=== PATIENT | female | born 1990 | race Caucasian/White ===

== ENCOUNTER 2020-01-04 22:00 | Inpatient (IN) | payer MEDICAID ==
[~2020-01-04] VITALS: Ht 152.4 cm; Wt 80.4 kg
[~2020-01-04 22:00] MED LIST: CPR500T PO; METR500T PO
--- NOTE | 2020-01-04 22:10 | NUR ---
DAVID WALTER presented to unit via ambulatory from ED, with c/o LABOR. Pt states has been nauseated and "not feeling good" all day with some chills that come and go. pt denies fever, denies respiratory symptoms, denies covid exposure. temp 36.9 with temporal thermometer. Pt has paper hospital mask on. DAVID WALTER weighed, gowned, voided, and to bed. EFHM and TOCO applied, VS taken. DAVID WALTER oriented to bed controls, call light, TV, heat, and A/C controls. Pt states has had ctx x 3 hours, and feels like labor. hx g5, p4 per pt report, all vaginal.
[2020-01-04 22:15] VITALS: BP 109/54
--- NOTE | 2020-01-04 22:18 | NUR ---
Pt in bed. sve done per this rn. 3-4 cm, 80%, bulging bag. presenting part not felt.
[2020-01-04] MEDS ORDERED: BETAMETHASONE ACE/NA PHOS 6 MG/ML (CELESTONE SOLUSPAN) ONE (22:19)
[2020-01-04] MEDS ORDERED: TERBUTALINE INJ 1 MG/ML (BRETHINE) AMP ONE (22:20)
--- NOTE | 2020-01-04 22:22 | NUR ---
called dr josue, oc with report. dr josue to call dr novak.
--- NOTE | 2020-01-04 22:25 | NUR ---
Dr novak called. report given of pt. new orders received. pt moved to room 319 via ambulatory accompanied by karyna so rn.
[2020-01-04 22:30] VITALS: BP 109/54
[2020-01-04] MEDS ORDERED: AMPICILLIN FOR IV USE 2,000 MG in WATER (STERILE) FOR INJECTION 14.8 ML IV SCH (22:36)
[2020-01-04] MEDS ORDERED: AMPICILLIN FOR IV USE 2,000 MG VIAL ONE (22:38)
[2020-01-04] MEDS ORDERED: WATER (STERILE) FOR INJECTION 20 ML ONE (22:38)
--- NOTE | 2020-01-04 22:38 | NUR ---
pt skin feels warm to touch when doing turb and beta shots. temp retaken. 38.2 temporal. pt denies covid exposure, travel, or respiratory symptoms. states has been having temperature swings, chills, nausea, and weakness today. dr boo and covid pui isolation ordered.
[2020-01-04 22:45] VITALS: BP 122/62
[2020-01-04] MEDS ORDERED: BETAMETHASONE ACE/NA PHOS 6 MG/ML (CELESTONE SOLUSPAN) IM ONE (22:45)
[2020-01-04] MEDS ORDERED: MINERAL OIL CONCENTRATE 99.9% 15 ML UDC TOP PRN (22:45)
[2020-01-04] MEDS ORDERED: TERBUTALINE INJ 1 MG/ML (BRETHINE) AMP SC ONE (22:45)
[2020-01-04] MEDS: LACTATED RINGERS 1,000 ML IV SCH (23:09)
[2020-01-04 23:12] LABS: BILIRUBIN,URINE NEGATIVE (NEGATIVE); CLARITY,URINE CLOUDY; COLOR,URINE YELLOW; GLUCOSE, URINE (UA) NEGATIVE (NEGATIVE); KETONES,URINE 2+ (NEGATIVE); LEUKOCYTE ESTERASE ,URINE 3+ (NEGATIVE); NITRITE,URINE NEGATIVE (NEGATIVE); PH,URINE 7.5 (5-9); PROTEIN,URINE TRACE (NEGATIVE)
[2020-01-04 23:12] LABS: BASOPHILS % (AUTO) 0 % (0-10); EOSINOPHILS # (AUTO) 0.1 10^3/uL (0.0-0.3); EOSINOPHILS % (AUTO) 1 % (0-10); HEMATOCRIT 34 % (35-52); HEMOGLOBIN 11.8 G/DL (11.5-16.0); LYMPHOCYTES # (AUTO) 1.7 X 10^3 (1.0-4.0); LYMPHOCYTES % (AUTO) 8 % (12-44); MEAN CORPUSCULAR HEMOGLOBIN 33 PG (25-34); MEAN CORPUSCULAR HGB CONC 35 G/DL (32-36); MEAN CORPUSCULAR VOLUME 94 FL (80-99); MEAN PLATELET VOLUME 9.9 FL (7.4-10.4); MONOCYTES # (AUTO) 1.2 X 10^3 (0.0-1.0); MONOCYTES % (AUTO) 6 % (0-12); NEUTROPHILS # (AUTO) 17.6 X 10^3 (1.8-7.8); NEUTROPHILS % (AUTO) 85 % (42-75); PLATELET COUNT 162 10^3/uL (130-400); RED CELL DISTRIBUTION WIDTH 12.6 % (10.0-14.5); WHITE BLOOD COUNT 20.6 10^3/uL (4.3-11.0)
[2020-01-04 23:18] LABS: RBC,URINE 50-100 /HPF; WBC,URINE 50-100 /HPF
[2020-01-04 23:19] LABS: BACTERIA,URINE FEW /HPF
[2020-01-04] MEDS ORDERED: fentaNYL 2 mcg/ml BUPIVA 0.125 100 ML ONE (23:24)
--- NOTE | 2020-01-04 23:27 | NUR ---
Ramirez arrived for this rn. laura case in room for epidural placement. 7590 covid testing swab done per manpreet roberts crna. Addendum: 01/05/20 at 0409 by RON WOLF RN isolation cart outside room. this rn donned goagatan, hat, n95, and face shield.
--- OUTSIDE RECORDS SUMMARY | 2020-01-04 23:40 | XMS REPORT | Clinical Summary ---
Author Author Admin, Giuliana Flores Organization [facility] Address Unknown Phone Unavailable Allergies, Adverse Reactions, Alerts Allergy Name Reaction Description Start Date Severity Status Pr ovider No Known Allergies Estela Clifton LPN Conditions or Problems Problem Name Problem Code Onset Date Status Entry Date Provider Comment Standard Description Annotate Supervision of other normal V22.1 Resolved Cintia Pagan APRN Supervision of other normal Supervision of other normal V22.1 Inactive Dionne Stewart MD Supervision of other normal Supervision high risk , second trimester V23.9 2014 Inactive Dionne Stewart MD Supervision of unspecified high -risk Supervision high risk , third trimester V23.9 03/15 Resolved Dionne Stewart MD Supervision of unspecified high -risk care, delayed V23.7 Resolved Cintia flores APRN Supervision of high-risk : insufficient care Drug abuse, hx of V15.89 Active Dionne Stewart MD Other specified personal history presenting hazards to health Tobacco abuse, gestational 305.1 Inactive 4 Dionne Stewart MD Tobacco use disorder Tobacco abuse 305.1 Active Dionne Stewart MD Tobacco use disorder NEED FOR PROPHYLACTIC VACCINATION WITH YPAVCJL-[id number]-A UBELLA (MMR) VACCINE V06.4 Resolved Cintia Pagan APRN Need for prophylactic vaccination with hlsuzis-dzblz-inieflm [MMR] vaccine Contraceptive management V25.9 Resolved Taiwo Stewart MD Encounter for unspecified contraceptive management follow-up, routine V24.2 Resolved 12/31 Dionne Stewart MD Routine follow-up Vaginal discharge 623.5 Resolved Dionne Anders Leukorrhea, not specified as infective Vaginal discharge 623.5 Active Dionne Stewart MD Leukorrhea, not specified as infective Genital herpes 054.10 Active Dionne Stewart MD Genital herpes, unspecified 9 weeks gestation of V28.9 Inactive 01/05 Xiao Brasher Encounter for unspecified scre ening of mother 16 weeks gestation of V28.9 Inactive 2017 Dionne Stewart MD Encounter for unspecified scre ening of mother 18 weeks gestation of V28.9 Inactive 2017 Dionne Stewart MD Encounter for unspecified scre ening of mother 21 weeks gestation of V28.9 Inactive 2017 Pamela Dailey LRT Encounter for unspecified scre ening of mother 25 weeks gestation of V28.9 Inactive 2017 Dionne Stewart MD Encounter for unspecified scre ening of mother 27 weeks gestation of V28.9 Inactive 2017 Dionne Stewart MD Encounter for unspecified scre ening of mother 29 weeks gestation of V28.9 Inactive 2017 Nayeli Duke SOFTWARE INTEGRATION DEVELOPER Encounter for unspecified scre ening of mother Abnormal biochemical finding on screening 796.5 20 09/03/10 Resolved Dionne Stewart MD Abnormal finding on s creening Sinusitis, acute frontal 461.1 Resolved Taiwo Stewart MD Acute frontal sinusitis GDM, diet controlled 648.80 Resolved Dionne lima MD Abnormal glucose tolerance complicating , childbirth, or the puerperium, unspecified as to episode of care or not applicable 30 weeks gestation of V28.9 Inactive 2017 Nayeli [place] SOFTWARE INTEGRATION DEVELOPER Encounter for unspecified scre ening of mother 31 weeks gestation of V28.9 Inactive 2017 Dionne Stewart MD Encounter for unspecified scre ening of mother 33 weeks gestation of V28.9 Inactive 2017 Dionne Stewart MD Encounter for unspecified scre ening of mother 35 weeks gestation of V28.9 Inactive 2017 Dionne Stewart MD Encounter for unspecified scre ening of mother 36 weeks gestation of V28.9 Inactive 2017 Dionne Stewart MD Encounter for unspecified scre ening of mother Gestation period greater than or equal to 37 weeks 765.29 201 04/01/09 Resolved Dionne Stewart MD 37 or more completed weeks of g estation Std exposure V01.6 Active Dionne Stewart MD Contact with or exposure to venereal diseases BMI 25-25.9 Active Dionne Stewart MD Body Mass Index 25.0-25.9, adult Overweight (BMI 25-29.9) Active Dionne lima MD Overweight Supervision high risk , third trimester ICD-V23.9 Inactive Dionne Stewart MD care, delayed ICD-V23.7 Inactive Kristin Pagan SOFTWARE INTEGRATION DEVELOPER NEED FOR PROPHYLACTIC VACCINATION WITH QITRIWZ-RXMOG-I UBELLA (MMR) VACCINE ICD-V06.4 Inactive Cintia Pagan SOFTWARE INTEGRATION DEVELOPER Contraceptive management ICD-V25.9 Inactive Dionne Stewart MD follow-up, routine ICD-V24.2 Inacti ve Dionne Stewart MD 29 weeks gestation of ICD-V28.9 Inac tiflorentino Duke SOFTWARE INTEGRATION DEVELOPER Abnormal biochemical finding on screening ICD-796.5 Inactive Dionne Stewart MD Sinusitis, acute frontal ICD-461.1 Inactive Dionne Stewart MD GDM, diet controlled ICD-648.80 Inactive Dionne Stewart MD Gestation period greater than or equal to 37 weeks ICD-765.29 Inactive Dionne Stewart MD Medication List Medication Instructions Start Date Stop Date Generic Name NDC Status Provider Patient Instruction FLAGYL 500 MG ORAL TABLET 1 tablet by mouth bid METRONIDAZOLE 07846743535 Active Estela Clifton LPN Active CONCEPT DHA 53.5-38-1 MG ORAL CAPSULE one tab PO daily [id number]-[id number]-[id number]-FA-OMEGA 3 88387022941 No Longer Active Dionne Stewart MD Active LORATADINE 10 MG ORAL TABLET 1 tablet by mouth daily 2 LORATADINE 43105961795 No Longer Active Dionne Stewart MD Active FERROUS SULFATE 325 (65 FE) MG ORAL TABLET 1 tablet daily 5 FERROUS SULFATE 31054285052 No Longer Active Dionne Stewart MD Acti ve LANCETS Test blood sugars as directed for gestational DM O24.420 LANCETS 75576341688 No Longer Active Dionne Stewart MD A ctive TRUE METRIX GO GLUCOSE METER W/DEVICE KIT Check blood sugars as directed BLOOD GLUCOSE MONITORING SUPPL 83744874477 N o Longer Active Dionne Stewart MD Active TRUE METRIX BLOOD GLUCOSE TEST IN VITRO STRIP Check bl ood sugars four times a day as directed for gestational DM; O24.420 GLUC OSE BLOOD 89960928564 No Longer Active Dionne Stewart MD Active PROMETHAZINE HCL 12.5 MG ORAL TABLET 1 tablet by mouth every 4 hours as needed for nausea/vomiting PROMETHAZINE HCL 63083436106 No L onger Active Dionne Stewart MD Active DIFLUCAN 150 MG ORAL TABLET 1 tablet by mouth daily 10/07/30 FLUCONAZOLE 41133268735 No Longer Active Megan Wise Active ACYCLOVIR 400 MG ORAL TABLET One tab PO BID until delivery 06/23 ACYCLOVIR 75268233821 No Longer Active Dionne Stewart MD A ctive SKLICE 0.5 % EXTERNAL LOTION Apply 4oz to dry hair and rinse of after 10 minutes IVERMECTIN 57624465817 No Longer Active Megan Northclarence lowe Active AUGMENTIN 875-125 MG ORAL TABLET 1 po BID x 10 days 09/06/11 AMOXICILLIN-POT CLAVULANATE 25263189146 No Longer Active Rosalina Sell SOFTWARE INTEGRATION DEVELOPER Active TYLENOL PM EXTRA STRENGTH 500-25 MG ORAL TABLET PRN 12/31 DIPHENHYDRAMINE-APAP (SLEEP) 80536016589 No Longer Active Dionne Stewart MD Active FLAGYL 500 MG ORAL TABLET 1 tablet PO BID for 7 days 2 METRONIDAZOLE 02339422514 No Longer Active Dionne Stewart MD Active EQL FORMULA 28-0.8 MG ORAL TABLET 1 tablet daily 1 VIT-FE FUMARATE-FA 03574736927 No Longer Active Dionne Stewart MD A ctive CONCEPT DHA 53.5-38-1 MG ORAL CAPSULE one tab PO daily [id number]-HVTQP-WBZB-FA-OMEGA 3 07493817618 No Longer Active Dionne Stewart MD Active CYCLOBENZAPRINE HCL 10 MG ORAL TABLET 1 tablet by mout h three times daily as needed for muscle spasm/pain CYCLOBENZAPRINE HCL 70986687389 No Longer Active Dionne Stewart MD Active TRI-SPRINTEC 0.18/0.215/0.25 MG-35 MCG ORAL TABLET 1 po qd a s directed NORGESTIM-ETH ESTRAD TRIPHASIC 44301407146 N o Longer Active Dionne Stewart MD Active FLAGYL 250 MG ORAL TABLET One tablet three times a day METRONIDAZOLE 60089590009 No Longer Active Cintia Pagan APRN Active [facility] 28-0.8 MG ORAL TABLET 04/10 VIT-FE FUMARATE-FA 20292264871 No Longer Active Dionne Stewart MD Active [facility] 28-0.8 MG ORAL TABLET 04/10 [facility] 28-0.8 MG ORAL TABLET VIT-FE FUMARATE-FA Inactive TRI-SPRINTEC 0.18/0.215/0.25 MG-35 MCG ORAL TABLET 1 po qd a s directed TRI-SPRINTEC 0.18/0.215/0.25 MG-35 MCG ORAL TABL ET 790429 NORGESTIM-ETH ESTRAD TRIPHASIC Inactive CYCLOBENZAPRINE HCL 10 MG ORAL TABLET 1 tablet by mout h three times daily as needed for muscle spasm/pain CYCLOBENZAP RINE HCL 10 MG ORAL TABLET 873662 CYCLOBENZAPRINE HCL Inactive CONCEPT DHA 53.5-38-1 MG ORAL CAPSULE one tab PO daily CONCEPT DHA 53.5-38-1 MG ORAL CAPSULE DNUDRY-QBWDZ-HLKB-FA-O BILLIE 3 Inactive FLAGYL 500 MG ORAL TABLET 1 tablet PO BID for 7 days 2 FLAGYL 500 MG ORAL TABLET 940277 METRONIDAZOLE Inactive TYLENOL PM EXTRA STRENGTH 500-25 MG ORAL TABLET PRN 12/31 TYLENOL PM EXTRA STRENGTH 500-25 MG ORAL TABLET 3939947 DIPHEN HYDRAMINE-APAP (SLEEP) Inactive SKLICE 0.5 % EXTERNAL LOTION Apply 4oz to dry hair and rinse of after 10 minutes SKLICE 0.5 % EXTERNAL LOTION IVERMEC TIN Inactive DIFLUCAN 150 MG ORAL TABLET 1 tablet by mouth daily 20 10/07/30 DIFLUCAN 150 MG ORAL TABLET 564572 FLUCONAZOLE Inactive PROMETHAZINE HCL 12.5 MG ORAL TABLET 1 tablet by mouth every 4 hours as needed for nausea/vomiting PROMETHAZINE HCL 12.5 MG ORA L TABLET 391620 PROMETHAZINE HCL Inactive TRUE METRIX BLOOD GLUCOSE TEST IN VITRO STRIP Check bl ood sugars four times a day as directed for gestational DM; O24.420 TRUE METRIX BLOOD GLUCOSE TEST IN VITRO STRIP GLUCOSE BLOOD Inacti ve TRUE METRIX GO GLUCOSE METER W/DEVICE KIT Check blood sugars as directed TRUE METRIX GO GLUCOSE METER W/DEVICE KIT BLOOD GLUCOSE MONITORING SUPPL Inactive LANCETS Test blood sugars as directed for gestational DM O24.420 LANCETS 25006499245 LANCETS Inactive FERROUS SULFATE 325 (65 FE) MG ORAL TABLET 1 tablet daily 5 FERROUS SULFATE 325 (65 FE) MG ORAL TABLET 492837 FERROUS SULFATE Inactive LORATADINE 10 MG ORAL TABLET 1 tablet by mouth daily 2 LORATADINE 10 MG ORAL TABLET 605023 LORATADINE Inactive CONCEPT DHA 53.5-38-1 MG ORAL CAPSULE one tab PO daily CONCEPT DHA 53.5-38-1 MG ORAL CAPSULE HQQUTM-XIXZT-IOVM-FA-O BILLIE 3 Inactive FLAGYL 250 MG ORAL TABLET One tablet three times a day FLAGYL 250 MG ORAL TABLET 002260 METRONIDAZOLE Inactive AUGMENTIN 875-125 MG ORAL TABLET 1 po BID x 10 days 09/06/11 AUGMENTIN 875-125 MG ORAL TABLET 619822 AMOXICILLIN-POT CLAVULANATE Inactive ACYCLOVIR 400 MG ORAL TABLET One tab PO BID until delivery 06/23 ACYCLOVIR 400 MG ORAL TABLET 193252 ACYCLOVIR [place] ctive Immunizations Vaccine Administration Date Value Standard Koko cription hepatitis B vaccine series yes hepat itis B vaccine, unspecified formulation hepatitis B vaccine series no hepat itis B vaccine, unspecified formulation Vital Signs Date Name Value Unit Range Description blood pressure, diastolic 67 mm[Hg] BP miramontes blood pressure, systolic 110 mm[Hg] BP sys height E&M 60 [in_us] Bdy height pulse rate E&M 64 /min Heart rate temperature E&M 97.3 [degF] Body temp erature weight E&M 128.40 [lb_av] Weight Measure d blood pressure, diastolic 69 mm[Hg] BP miramontes blood pressure, systolic 113 mm[Hg] BP sys pulse rate E&M 96 /min Heart rate temperature E&M 97.4 [degF] Body temp erature weight E&M 160.8 [lb_av] Weight Measure d blood pressure, diastolic 68 mm[Hg] BP miramontes blood pressure, systolic 118 mm[Hg] BP sys pulse rate E&M 95 /min Heart rate temperature E&M 97.9 [degF] Body temp erature weight E&M 162.6 [lb_av] Weight Measure d blood pressure, diastolic 61 mm[Hg] BP miramontes blood pressure, systolic 107 mm[Hg] BP sys pulse rate E&M 75 /min Heart rate temperature E&M 98.4 [degF] Body temp erature weight E&M 165 [lb_av] Weight Measure d blood pressure, diastolic 66 mm[Hg] BP miramontes blood pressure, systolic 113 mm[Hg] BP sys pulse rate E&M 89 /min Heart rate temperature E&M 97.7 [degF] Body temp erature weight E&M 166 [lb_av] Weight Measure d blood pressure, diastolic 64 mm[Hg] BP miramontes blood pressure, systolic 128 mm[Hg] BP sys pulse rate E&M 102 /min Heart rate temperature E&M 98.2 [degF] Body temp erature weight E&M 167 [lb_av] Weight Measure d blood pressure, diastolic, repeated by physician 74 BP miramontes blood pressure, diastolic 74 mm[Hg] BP miramontes blood pressure, systolic, repeated by physician 118 BP sys blood pressure, systolic 118 mm[Hg] BP sys height E&M 60 [in_us] Bdy height pulse rate E&M 88 /min Heart rate weight E&M 165 [lb_av] Weight Measure d blood pressure, diastolic 57 mm[Hg] BP miramontes blood pressure, systolic 109 mm[Hg] BP sys pulse rate E&M 89 /min Heart rate temperature E&M 98.2 [degF] Body temp erature weight E&M 162 [lb_av] Weight Measure d blood pressure, diastolic 64 mm[Hg] BP miramontes blood pressure, systolic 110 mm[Hg] BP sys height E&M 60 [in_us] Bdy height pulse rate E&M 98 /min Heart rate temperature E&M 98.0 [degF] Body temp erature weight E&M 164.38 [lb_av] Weight Measure d blood pressure, diastolic 59 mm[Hg] BP miramontes blood pressure, systolic 120 mm[Hg] BP sys pulse rate E&M 64 /min Heart rate temperature E&M 97.6 [degF] Body temp erature weight E&M 162.4 [lb_av] Weight Measure d blood pressure, diastolic 67 mm[Hg] BP miramontes blood pressure, systolic 123 mm[Hg] BP sys pulse rate E&M 94 /min Heart rate temperature E&M 98.3 [degF] Body temp erature weight E&M 161 [lb_av] Weight Measure d blood pressure, diastolic 50 mm[Hg] BP miramontes blood pressure, systolic 103 mm[Hg] BP sys pulse rate E&M 70 /min Heart rate temperature E&M 98.8 [degF] Body temp erature weight E&M 156 [lb_av] Weight Measure d blood pressure, diastolic 63 mm[Hg] BP miramontes blood pressure, systolic 124 mm[Hg] BP sys pulse rate E&M 89 /min Heart rate temperature E&M 98.6 [degF] Body temp erature weight E&M 146.4 [lb_av] Weight Measure d blood pressure, diastolic 55 mm[Hg] BP miramontes blood pressure, systolic 103 mm[Hg] BP sys pulse rate E&M 972 /min Heart rate temperature E&M 97.2 [degF] Body temp erature weight E&M 144 [lb_av] Weight Measure d blood pressure, diastolic 66 mm[Hg] BP miramontes blood pressure, systolic 131 mm[Hg] BP sys pulse rate E&M 87 /min Heart rate temperature E&M 97.8 [degF] Body temp erature weight E&M 140.6 [lb_av] Weight Measure d blood pressure, diastolic 52 mm[Hg] BP miramontes blood pressure, systolic 116 mm[Hg] BP sys height E&M 60 [in_us] Bdy height pulse rate E&M 80 /min Heart rate temperature E&M 98.3 [degF] Body temp erature weight E&M 136.60 [lb_av] Weight Measure d Diagnostic Results Date Name Value Unit Range Description Lab Report: ABO GROUP & RH TYPE, ANTIBOD Y SCREEN, RBCW/REFL I, CBC (INCL ... - Blood bank Rh antigen RH(D) POSITIVE antibody screen, serum NO ANTIBODIES DETECTED Lab Report: ABO GROUP & RH TYPE, ANTIBOD Y SCREEN, RBCW/REFL I, CBC (INCL ... - Chemistry hepatitis B surface antigen NON-REACTIVE NON-RE ACTIVE rapid plasma reagin antibody titer NON-REACTIVE NON-REACTIVE Lab Report: ABO GROUP & RH TYPE, ANTIBOD Y SCREEN, RBCW/REFL I, CBC (INCL ... - Hematology leukocyte count, blood 8.6 THOUSAND/UL 10*3/mm3 3.8-10.8 erythrocyte (RBC) count 3.93 MILLION/UL 10*6/mm3 3.80-5. 10 hemoglobin, blood 12.3 g/dL 11.7-15.5 hematocrit, blood 36.8 % 35.0-45.0 mean corpuscular volume, RBC 93.6 fL 80.0-10 0.0 mean corpuscular hemoglobin, RBC 31.3 pg 27. 0-33.0 mean corpuscular hemoglobin concentration, RBC 33.4 G/DL % 32.0-36.0 red blood cell distribution width 12.3 % 11 .0-15.0 platelet count 226 THOUSAND/UL 10*3/mm3 774-529 8959/05/11 mean platelet volume 10.3 fL 7.5-12.5 Blood type O Lab Report: ABO GROUP & RH TYPE, ANTIBOD Y SCREEN, RBCW/REFL I, CBC (INCL ... - Lab chlamydia DNA probe NOT DETECTED NOT DETECTED Lab Report: ABO GROUP & RH TYPE, ANTIBOD Y SCREEN, RBCW/REFL I, CBC (INCL ... - Microbiology Neisseria gonorrhoeae DNA probe NOT DETECTED NO T DETECTED Lab Report: ABO GROUP & RH TYPE, ANTIBOD Y SCREEN, RBCW/REFL I, CBC (INCL ... - Serology rubella antibody, serum, IgG 5.48 Lab Report: ANTIBODY SCREEN, RBCW/REFL I , Drug Abuse Pnl 10-33/11236 - Blood bank antibody screen, serum NO ANTIBODIES DETECTED Lab Report: CBC, [id number] Gluc cari-1spec - Hematology leukocyte count, blood 10.2 10^3/MM^3 10*3/mm3 4.6-10.2 erythrocyte (RBC) count 3.30 10^6/MM^3 10*6/mm3 3.80-5.8 0 hemoglobin, blood 10.5 g/dL 12.0-16.0 hematocrit, blood 31.1 % 37.0-47.0 mean corpuscular volume, RBC 94 fL 80-97 mean corpuscular hemoglobin, RBC 31.9 pg 27. 0-31.2 mean corpuscular hemoglobin concentration, RBC 33.9 G/DL % 31.8-35.4 red blood cell distribution width 11.1 % 13 .0-18.0 platelet count 201 10^3/MM^3 10*3/mm3 142-424 Lab Report: Chlamydia/GC APTIMA/[id number] - Lab chlamydia DNA probe NOT DETECTED NOT DETECTED Lab Report: Chlamydia/GC APTIMA/89975 - Microbiology Neisseria gonorrhoeae DNA probe NOT DETECTED NO T DETECTED Lab Report: Chlamydia/GC APTIMA/[id number], H EPATITIS B S AG W/, HIV-1/2 Agn/ ... - Chemistry hepatitis B surface antigen NON-REACTIVE NON-RE ACTIVE rapid plasma reagin antibody titer NON-REACTIVE NON-REACTIVE Lab Report: Chlamydia/GC APTIMA/21403, H EPATITIS B S AG W/, HIV-1/2 Agn/ ... - Lab chlamydia DNA probe NOT DETECTED NOT DETECTED Lab Report: Chlamydia/GC APTIMA/00471, H EPATITIS B S AG W/, HIV-1/2 Agn/ ... - Microbiology Neisseria gonorrhoeae DNA probe NOT DETECTED NO T DETECTED Lab Report: HEPATITIS B S AG W/, HIV-1/2 Agn/Mikaela/23500, RPR (DX) W/REFL ... - Chemistry hepatitis B surface antigen NON-REACTIVE NON-RE ACTIVE rapid plasma reagin antibody titer NON-REACTIVE NON-REACTIVE Lab Report: OBGTT3 - Chemistry blood glucose 92 mg/dL 65-95 Lab Report: Thyroid Stimulating Hormone (L), UADIP W/MICRO, AUTO - Chemistry TSH 0.87 m[iU]/mL 0.36-3.74 protein, total urine random Negative mg/dL Negative RBC, urine, dipstick Negative Negative Lab Report: Thyroid Stimulating Hormone (L), UADIP W/MICRO, AUTO - Urinalysis urobilinogen, urine, semiquantitative (dipstick) 0.2 E .U./dL Normal leukocyte esterase, urine, by dipstick Negative Negative nitrite, urine, semiquantitative Negative Neg ative urate crystals, amorphous, urine, semiquantitative Few None seen glucose, urine, semiquantitative Negative Neg ative ketones, urine, by test strip Negative Negati ve bilirubin, urine Negative Negative urine color Yellow Colorless;Lightyellow;St raw;Yellow appearance, urine Clear Clear specific gravity, urine 1.020 1.000-1.030 pH, urine, semiquantitative 8.5 5.0-8.5 Lab Report: UADIP W/MICRO, AUTO - Chemis try protein, total urine random Negative mg/dL Negative RBC, urine, dipstick Negative Negative Lab Report: UADIP W/MICRO, AUTO - Urinal ysis urobilinogen, urine, semiquantitative (dipstick) 0.2 E .U./dL Normal leukocyte esterase, urine, by dipstick Trace Negative nitrite, urine, semiquantitative Negative Neg ative glucose, urine, semiquantitative Negative Neg ative ketones, urine, by test strip Negative Negati ve bilirubin, urine Negative Negative urine color Yellow Colorless;Lightyellow;St raw;Yellow appearance, urine Clear Clear specific gravity, urine 1.025 1.000-1.030 pH, urine, semiquantitative 6.0 5.0-8.5 Lab Report: UADIP W/MICRO, AUTO, Wet Pre p - Chemistry protein, total urine random Negative mg/dL Negative RBC, urine, dipstick Negative Negative Lab Report: UADIP W/MICRO, AUTO, Wet Pre p - Urinalysis urobilinogen, urine, semiquantitative (dipstick) 0.2 E .U./dL Normal leukocyte esterase, urine, by dipstick Trace Negative nitrite, urine, semiquantitative Negative Neg ative glucose, urine, semiquantitative Negative Neg ative ketones, urine, by test strip Negative Negati ve bilirubin, urine Negative Negative urine color Yellow Colorless;Lightyellow;St raw;Yellow appearance, urine Clear Clear specific gravity, urine 1.015 1.000-1.030 pH, urine, semiquantitative 7.0 5.0-8.5 Lab Report: [facility] [place] - Chemistry human chorionic gonadotropin , urine, qualitative (urine test) Negative Negative Office Visit: 4 wk f/u and quad screen - Urinalysis protein, urine, semiquantitative (dipstick) N glucose, urine, semiquantitative N nitrite, urine, semiquantitative N Office Visit: follow up ob - Urinalysis protein, urine, semiquantitative (dipstick) N glucose, urine, semiquantitative N nitrite, urine, semiquantitative N Office Visit: follow up ob - Urinalysis protein, urine, semiquantitative (dipstick) N glucose, urine, semiquantitative N nitrite, urine, semiquantitative N Office Visit: follow up ob - Urinalysis protein, urine, semiquantitative (dipstick) N glucose, urine, semiquantitative N nitrite, urine, semiquantitative N protein, urine, semiquantitative (dipstick) N nitrite, urine, semiquantitative N glucose, urine, semiquantitative N protein, urine, semiquantitative (dipstick) N glucose, urine, semiquantitative N nitrite, urine, semiquantitative N protein, urine, semiquantitative (dipstick) 1+ glucose, urine, semiquantitative N nitrite, urine, semiquantitative N glucose, urine, semiquantitative 4+ protein, urine, semiquantitative (dipstick) N nitrite, urine, semiquantitative N protein, urine, semiquantitative (dipstick) Tr glucose, urine, semiquantitative N nitrite, urine, semiquantitative N Office Visit: follow up ob with DMS - Ur inalysis protein, urine, semiquantitative (dipstick) N glucose, urine, semiquantitative N nitrite, urine, semiquantitative N Office Visit: follow up ob with GBS - Ur inalysis protein, urine, semiquantitative (dipstick) N glucose, urine, semiquantitative N nitrite, urine, semiquantitative N Office Visit: Initial OB Visit - Genetic s/fertility test, date 12/10/2017 Office Visit: Initial OB Visit - Microbi ology Herpes Simplex Virus Genital yes Office Visit: Initial OB Visit - Urinaly sis protein, urine, semiquantitative (dipstick) UC glucose, urine, semiquantitative UC nitrite, urine, semiquantitative UC Office Visit: OB Visit - Urinalysis protein, urine, semiquantitative (dipstick) N glucose, urine, semiquantitative N nitrite, urine, semiquantitative N Encounters Code Encounter Date Provider Facility CPT-43283 Level 3 Est. Patient 14:03:17 CDT Dionne bey MD [facility] CPT-05710 Level 4 Est. Patient 15:39:57 CDT Nayeli herrera [facility] CPT-34315 Level 3 Est. Patient 17:26:51 CDT Rosalina berg [facility] CPT-37651 Level 3 Est. Patient 17:31:05 SAWMILL TALLY CLERK Cintia sommer [facility] Procedures Code Procedure Name Date Entry Date Standard Desc ription CPT-58809 Visit 10:15:43 SAWMILL TALLY CLERK CPT-82060 Visit 13:02:58 SAWMILL TALLY CLERK CPT-27762 Visit 12:11:18 SAWMILL TALLY CLERK CPT-73431 Visit 10:38:39 CDT CPT-16871 Visit 08:28:55 CDT CPT-35308 Addl Vx - Ix admin via ID IM or jet injects without counseling by physician 18:18:11 CDT CPT-50339 Boostrix Intramuscular Suspension 5-2.5-18.5 201 04/01/05 18:18:11 CDT CPT-93534 First Vx - Ix admin via ID I M or jet injects without counseling by physician 18:18:11 CDT CPT-15183 Flulaval Intramuscular Injectable 18:18:11 CDT CPT-19750 Fluzone Thim Free 36mo and older 11:16:54 C DT CPT-18213 Tdap 7yrs or > 11:16:53 CDT CPT-02838 Visit 11:16:53 CDT CPT-42998 Visit 11:14:16 CDT CPT-70290 Visit 10:54:00 CDT CPT-14013 Visit 16:24:31 CDT CPT-12060 Sono OB comp > 14 weeks - XRAY USE ONLY 12:01:14 CDT CPT-28508 Visit 15:58:08 CDT CPT-46225 Visit 12:16:56 CDT CPT-48558R Sono OB comp <14 weeks ([place] Only) - X RAY USE ONLY 12:09:02 CDT CPT-03855 Spec Collection and Handling Fee 10:11:50 C DT CPT-18156 Visit 10:11:49 CDT CPT-J1050 Depo Provera 150 mg (Medroxyprogesterone) 08/30 16:06:30 SAWMILL TALLY CLERK CPT-43103 Abx/Therapy Injection 16:06:30 SAWMILL TALLY CLERK CPT-J1050 Depo Provera 150 mg (Medroxyprogesterone) 08/30 15:39:17 SAWMILL TALLY CLERK CPT-87489 Visit 15:01:38 CDT CPT-09977 Sono OB comp > 14 weeks 16:05:04 CDT 03/18 CPT-14900 Spec Collection and Handling Fee 10:45:40 C DT CPT-45809 Visit 10:45:40 CDT
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
--- OUTSIDE RECORDS SUMMARY | 2020-01-04 23:40 | XMS REPORT | Clinical Summary ---
Author Author Admin, Giuliana Flores Organization [facility] Address Unknown Phone Unavailable Allergies, Adverse [...] use disorder NEED FOR PROPHYLACTIC VACCINATION WITH WDTNXWR-DKMYE-O UBELLA (MMR) VACCINE V06.4 Resolved Cintia Pagan APRN Need for prophylactic vaccination with yntkftm-hndbg-zqveudh [MMR] vaccine Contraceptive management V25.9 Resolved Taiwo [...] gestation of V28.9 Inactive 2017 Nayeli Duke [employer] Encounter for unspecified scre ening of mother [...] gestation of V28.9 Inactive 2017 Nayeli Duke [employer] Encounter for unspecified scre ening of mother [...] MD care, delayed ICD-V23.7 Inactive Kristin Pagan [employer] NEED FOR PROPHYLACTIC VACCINATION WITH MFMUUOU-CSVAT-Z UBELLA (MMR) VACCINE ICD-V06.4 Inactive Cintia Pagan [employer] Contraceptive management ICD-V25.9 Inactive Dionne Stewart MD follow-up, routine ICD-V24.2 Inacti ve Dionne Stewart MD 29 weeks gestation of ICD-V28.9 Inac tive Nayeli Duke [employer] Abnormal biochemical finding on screening ICD-796.5 Inactive [...] TABLET 1 tablet by mouth bid METRONIDAZOLE 33341920964 Active Estela Clifton LPN Active CONCEPT DHA 53.5-38-1 MG ORAL CAPSULE one tab PO daily CXOENB-GDQFH-AQHD-FA-OMEGA 3 54432209280 No Longer Active Dionne Stewart MD Active LORATADINE 10 MG ORAL TABLET 1 tablet by mouth daily 2 LORATADINE 90902179633 No Longer Active Dionne Stewart MD Active FERROUS SULFATE 325 (65 FE) MG ORAL TABLET 1 tablet daily 5 FERROUS SULFATE 77661307791 No Longer Active Dionne Stewart MD Acti ve LANCETS Test blood sugars as directed for gestational DM O24.420 LANCETS 12008269723 No Longer Active Dionne Stewart MD A ctive TRUE METRIX GO GLUCOSE METER W/DEVICE KIT Check blood sugars as directed BLOOD GLUCOSE MONITORING SUPPL 70436257365 N o Longer Active Dionne Stewart MD Active TRUE METRIX BLOOD GLUCOSE TEST IN VITRO STRIP Check bl ood sugars four times a day as directed for gestational DM; O24.420 GLUC OSE BLOOD 42043846702 No Longer Active Dionne Stewart MD Active PROMETHAZINE HCL 12.5 MG ORAL TABLET 1 tablet by mouth every 4 hours as needed for nausea/vomiting PROMETHAZINE HCL 19185760910 No L onger Active Dionne Stewart MD Active DIFLUCAN 150 MG ORAL TABLET 1 tablet by mouth daily 10/07/30 FLUCONAZOLE 82662716451 No Longer Active Megan Wise Active ACYCLOVIR 400 MG ORAL TABLET One tab PO BID until delivery 06/23 ACYCLOVIR 60862296915 No Longer Active Dionne Stewart MD A ctive SKLICE 0.5 % EXTERNAL LOTION Apply 4oz to dry hair and rinse of after 10 minutes IVERMECTIN 83891985180 No Longer Active Carrol a Active AUGMENTIN 875-125 MG ORAL TABLET 1 po BID x 10 days 09/06/11 AMOXICILLIN-POT CLAVULANATE 34654310666 No Longer Active Rosalina Sell [employer] Active TYLENOL PM EXTRA STRENGTH 500-25 MG ORAL TABLET PRN 12/31 DIPHENHYDRAMINE-APAP (SLEEP) 96959917607 No Longer Active Dionne Stewart MD Active FLAGYL 500 MG ORAL TABLET 1 tablet PO BID for 7 days 2 METRONIDAZOLE 79899697507 No Longer Active Dionne Stewart MD Active EQL FORMULA 28-0.8 MG ORAL TABLET 1 tablet daily 1 VIT-FE FUMARATE-FA 84505530120 No Longer Active Dionne Stewart MD A ctive CONCEPT DHA 53.5-38-1 MG ORAL CAPSULE one tab PO daily RARJDH-EBZCG-BFVL-FA-OMEGA 3 77738058385 No Longer Active Dionne Stewart MD Active CYCLOBENZAPRINE HCL 10 MG ORAL TABLET 1 tablet by mout h three times daily as needed for muscle spasm/pain CYCLOBENZAPRINE HCL 65321304489 No Longer Active Dionne Stewart MD Active TRI-SPRINTEC 0.18/0.215/0.25 MG-35 MCG ORAL TABLET 1 po qd a s directed NORGESTIM-ETH ESTRAD TRIPHASIC 84234490977 N o Longer Active Dionne Stewart MD Active FLAGYL 250 MG ORAL TABLET One tablet three times a day METRONIDAZOLE 25569402415 No Longer Active Cintia Pagan APRN Active [facility] 28-0.8 MG ORAL TABLET 04/10 VIT-FE FUMARATE-FA 43555457080 No Longer Active Dionne Stewart MD Active [facility] 28-0.8 MG ORAL TABLET 04/10 [facility] 28-0.8 MG ORAL TABLET VIT-FE FUMARATE-FA Inactive TRI-SPRINTEC 0.18/0.215/0.25 MG-35 MCG ORAL TABLET 1 po qd a s directed TRI-SPRINTEC 0.18/0.215/0.25 MG-35 MCG ORAL TABL ET 686112 NORGESTIM-ETH ESTRAD TRIPHASIC Inactive CYCLOBENZAPRINE HCL 10 MG ORAL TABLET 1 tablet by mout h three times daily as needed for muscle spasm/pain CYCLOBENZAP RINE HCL 10 MG ORAL TABLET 010799 CYCLOBENZAPRINE HCL Inactive CONCEPT DHA 53.5-38-1 MG ORAL CAPSULE one tab PO daily CONCEPT DHA 53.5-38-1 MG ORAL CAPSULE TIDZIZ-CDAJP-WFXX-FA-O BILLIE 3 Inactive FLAGYL 500 MG ORAL TABLET 1 tablet PO BID for 7 days 2 FLAGYL 500 MG ORAL TABLET 591696 METRONIDAZOLE Inactive TYLENOL PM EXTRA STRENGTH 500-25 MG ORAL TABLET PRN 12/31 TYLENOL PM EXTRA STRENGTH 500-25 MG ORAL TABLET 9713138 DIPHEN HYDRAMINE-APAP (SLEEP) Inactive SKLICE 0.5 % EXTERNAL LOTION Apply 4oz to dry hair and rinse of after 10 minutes SKLICE 0.5 % EXTERNAL LOTION IVERMEC TIN Inactive DIFLUCAN 150 MG ORAL TABLET 1 tablet by mouth daily 10/07/30 DIFLUCAN 150 MG ORAL TABLET 905905 FLUCONAZOLE Inactive PROMETHAZINE HCL 12.5 MG ORAL TABLET 1 tablet by mouth every 4 hours as needed for nausea/vomiting PROMETHAZINE HCL 12.5 MG ORA L TABLET 971093 PROMETHAZINE HCL Inactive TRUE METRIX BLOOD GLUCOSE [...] as directed for gestational DM O24.420 LANCETS 06975643177 LANCETS Inactive FERROUS SULFATE 325 (65 FE) MG ORAL TABLET 1 tablet daily 5 FERROUS SULFATE 325 (65 FE) MG ORAL TABLET 757728 FERROUS SULFATE Inactive LORATADINE 10 MG ORAL TABLET 1 tablet by mouth daily 2 LORATADINE 10 MG ORAL TABLET 684829 LORATADINE Inactive CONCEPT DHA 53.5-38-1 MG ORAL CAPSULE one tab PO daily CONCEPT DHA 53.5-38-1 MG ORAL CAPSULE XEHJRW-JJPXW-ELCR-FA-O BILLIE 3 Inactive FLAGYL 250 MG ORAL TABLET One tablet three times a day FLAGYL 250 MG ORAL TABLET 518032 METRONIDAZOLE Inactive AUGMENTIN 875-125 MG ORAL TABLET 1 po BID x 10 days 09/06/11 AUGMENTIN 875-125 MG ORAL TABLET 369932 AMOXICILLIN-POT CLAVULANATE Inactive ACYCLOVIR 400 MG ORAL TABLET One tab PO BID until delivery 06/23 ACYCLOVIR 400 MG ORAL TABLET 958627 ACYCLOVIR Britt ctive Immunizations Vaccine Administration Date Value Standard [...] I, CBC (INCL ... - Blood bank antibody screen, serum NO ANTIBODIES DETECTED Rh antigen RH(D) POSITIVE Lab Report: ABO GROUP & RH TYPE, ANTIBOD Y SCREEN, RBCW/REFL I, CBC (INCL ... - Chemistry hepatitis B surface antigen NON-REACTIVE NON-RE ACTIVE rapid plasma reagin antibody titer NON-REACTIVE NON-REACTIVE Lab Report: ABO GROUP & RH TYPE, ANTIBOD Y SCREEN, RBCW/REFL I, CBC (INCL ... - Hematology Blood type O erythrocyte (RBC) count 3.93 MILLION/UL 10*6/mm3 3.80-5. 10 leukocyte count, blood 8.6 THOUSAND/UL 10*3/mm3 3.8-10.8 hemoglobin, blood 12.3 g/dL 11.7-15.5 hematocrit, blood 36.8 % 35.0-45.0 mean corpuscular volume, RBC 93.6 fL 80.0-10 0.0 mean corpuscular hemoglobin, RBC 31.3 pg 27. 0-33.0 mean corpuscular hemoglobin concentration, RBC 33.4 G/DL % 32.0-36.0 red blood cell distribution width 12.3 % 11 .0-15.0 platelet count 226 THOUSAND/UL 10*3/mm3 179-383 8778/05/11 mean platelet volume 10.3 fL 7.5-12.5 Lab Report: ABO GROUP & RH TYPE, [...] SCREEN, RBCW/REFL I , Drug Abuse Pnl 10-50/59615 - Blood bank antibody screen, serum NO ANTIBODIES DETECTED Lab Report: CBC, [id number]--85sm Gluc cari-1spec - Hematology hemoglobin, blood 10.5 g/dL 12.0-16.0 hematocrit, blood 31.1 % 37.0-47.0 mean corpuscular volume, RBC 94 fL 80-97 mean corpuscular hemoglobin, RBC 31.9 pg 27. 0-31.2 leukocyte count, blood 10.2 10^3/MM^3 10*3/mm3 4.6-10.2 mean corpuscular hemoglobin concentration, RBC 33.9 G/DL % 31.8-35.4 red blood cell distribution width 11.1 % 13 .0-18.0 platelet count 201 10^3/MM^3 10*3/mm3 634-946 0077/09/21 erythrocyte (RBC) count 3.30 10^6/MM^3 10*6/mm3 3.80-5.8 0 Lab Report: Chlamydia/GC APTIMA/64640 - Lab chlamydia DNA probe NOT DETECTED NOT DETECTED Lab Report: Chlamydia/GC APTIMA/63211 - Microbiology Neisseria gonorrhoeae DNA probe NOT DETECTED NO T DETECTED Lab Report: Chlamydia/GC APTIMA/72794, H EPATITIS B S AG W/, HIV-1/2 Agn/ ... - Chemistry hepatitis B surface antigen NON-REACTIVE NON-RE ACTIVE rapid plasma reagin antibody titer NON-REACTIVE NON-REACTIVE Lab Report: Chlamydia/GC APTIMA/74661, H EPATITIS B S AG W/, HIV-1/2 Agn/ ... - Lab chlamydia DNA probe NOT DETECTED NOT DETECTED Lab Report: Chlamydia/GC APTIMA/25647, H EPATITIS B S AG W/, HIV-1/2 Agn/ ... - Microbiology Neisseria gonorrhoeae DNA probe NOT DETECTED NO T DETECTED Lab Report: HEPATITIS B S AG W/, HIV-1/2 Agn/Mikaela/40778, RPR (DX) W/REFL ... - Chemistry hepatitis [...] Report: UADIP W/MICRO, AUTO - Chemis try RBC, urine, dipstick Negative Negative protein, total urine random Negative mg/dL Negative Lab Report: UADIP W/MICRO, AUTO - Urinal ysis glucose, urine, semiquantitative Negative Neg ative ketones, urine, by test strip Negative Negati ve bilirubin, urine Negative Negative urine color Yellow Colorless;Lightyellow;St raw;Yellow appearance, urine Clear Clear specific gravity, urine 1.025 1.000-1.030 pH, urine, semiquantitative 6.0 5.0-8.5 urobilinogen, urine, semiquantitative (dipstick) 0.2 E .U./dL Normal leukocyte esterase, urine, by dipstick Trace Negative nitrite, urine, semiquantitative Negative Neg ative Lab Report: UADIP W/MICRO, AUTO, Wet Pre p - Chemistry protein, total urine random Negative mg/dL Negative RBC, urine, dipstick Negative Negative Lab Report: UADIP W/MICRO, AUTO, Wet Pre p - Urinalysis urobilinogen, urine, semiquantitative (dipstick) 0.2 E .U./dL Normal leukocyte esterase, urine, by dipstick Trace Negative nitrite, urine, semiquantitative Negative Neg ative pH, urine, semiquantitative 7.0 5.0-8.5 appearance, urine Clear Clear specific gravity, urine 1.015 1.000-1.030 urine color Yellow Colorless;Lightyellow;St raw;Yellow glucose, urine, semiquantitative Negative Neg ative ketones, urine, by test strip Negative Negati ve bilirubin, urine Negative Negative Lab Report: [facility] [place] - Chemistry human chorionic gonadotropin , urine, [...] urine, semiquantitative N glucose, urine, semiquantitative N Office Visit: follow up [...] N Encounters Code Encounter Date Provider Facility CPT-31053 Level 3 Est. Patient 14:03:17 CDT Dionne bey MD [facility] CPT-20870 Level 4 Est. Patient 15:39:57 CDT Nayeli herrera [facility] CPT-27893 Level 3 Est. Patient 17:26:51 CDT Rosalina berg [facility] CPT-15403 Level 3 Est. Patient 17:31:05 PAINT PREPPER Cintia sommer [facility] Procedures Code Procedure Name Date Entry Date Standard Desc ription CPT-56717 Visit 10:15:43 PAINT PREPPER CPT-67456 Visit 13:02:58 PAINT PREPPER CPT-88070 Visit 12:11:18 PAINT PREPPER CPT-21352 Visit 10:38:39 CDT CPT-57014 Visit 08:28:55 CDT CPT-81745 Addl Vx - Ix admin via ID IM or jet injects without counseling by physician 18:18:11 CDT CPT-64880 Boostrix Intramuscular Suspension 5-2.5-18.5 201 04/01/05 18:18:11 CDT CPT-97646 First Vx - Ix admin via ID I M or jet injects without counseling by physician 18:18:11 CDT CPT-65795 Flulaval Intramuscular Injectable 18:18:11 CDT CPT-70216 Fluzone Thim Free 36mo and older 11:16:54 C DT CPT-61687 Tdap 7yrs or > 11:16:53 CDT CPT-64563 Visit 11:16:53 CDT CPT-68376 Visit 11:14:16 CDT CPT-63250 Visit 10:54:00 CDT CPT-24823 Visit 16:24:31 CDT CPT-49359 Sono OB comp > 14 weeks - XRAY USE ONLY 12:01:14 CDT CPT-80182 Visit 15:58:08 CDT CPT-52571 Visit 12:16:56 CDT CPT-73641G Sono OB comp <14 weeks (Pat Only) - X RAY USE ONLY 12:09:02 CDT CPT-72931 Spec Collection and Handling Fee 10:11:50 C DT CPT-86111 Visit 10:11:49 CDT CPT-J1050 Depo Provera 150 mg (Medroxyprogesterone) 08/30 16:06:30 PAINT PREPPER CPT-24930 Abx/Therapy Injection 16:06:30 PAINT PREPPER CPT-J1050 Depo Provera 150 mg (Medroxyprogesterone) 08/30 15:39:17 PAINT PREPPER CPT-06566 Visit 15:01:38 CDT CPT-40137 Sono OB comp > 14 weeks 16:05:04 CDT 03/18 CPT-82420 Spec Collection and Handling Fee 10:45:40 C DT CPT-93571 Visit 10:45:40 CDT
--- OUTSIDE RECORDS SUMMARY | 2020-01-04 23:40 | XMS REPORT ---
Author Author [facility] Medic al Staff, DAVID JOINER Organization [facility] Address [address] [place], [place] [address] Phone [phone] Summary purpose CCDA Sent to [facility] Chief Complaint and Reason for Visit No authorized Reason for Visit (Admitting Diagnosis) is available for this visit . Problem list No authorized problems tracked for [...] Code Type Description Date Performed Performing Physician 10718 CPT-4 EMERGENCY DEPT VISIT 12-03-2014 PARAM RICE Functional status No functional or cognitive status observations are available for this visit. Vital signs No authorized vital signs are available for this visit. Social history No Social History or smoking status observations were recorded for this visit. ( Unknown if ever smoked.) Treatment Plan No treatment plan text is available for this visit. Hospital discharge instructions No discharge instruction text is available for this visit.
--- OUTSIDE RECORDS SUMMARY | 2020-01-04 23:40 | XMS REPORT ---
Author Author Giuliana Noguera Organization [facility] Address [address] [place] [address] Care Team Providers Care Dance Costume Designer Name Role Phone Robert Noguera Unavailable PROBLEMS Unknown Problems ALLERGIES No Information ENCOUNTERS Encounter Location Date Diagnosis [facility] [address] [place], [place] [id number] Apr, IMMUNIZATIONS No Known Immunizations SOCIAL HISTORY Never Assessed REASON FOR VISIT PLAN OF CARE VITAL SIGNS MEDICATIONS Unknown Medications RESULTS No Results PROCEDURES Procedure Date Ordered Result Body Site Echocardiography, , 2D May 18, 2018 Echocardiography, doppler, ; complete May 18, 2018 Doppler color flow velocity mapping May 18, 2018 INSTRUCTIONS MEDICATIONS ADMINISTERED No Known Medications
--- OUTSIDE RECORDS SUMMARY | 2020-01-04 23:41 | XMS REPORT | Clinical Summary ---
Author Author Admin, Giuliana Flores Organization [facility] Address Unknown Phone Unavailable Allergies, Adverse Reactions, [...] use disorder NEED FOR PROPHYLACTIC VACCINATION WITH TDBTJEZ-HWAGJ-D UBELLA (MMR) VACCINE V06.4 Resolved Cintia Pagan APRN Need for prophylactic vaccination with vopiwft-otpep-rmrsvzn [MMR] vaccine Contraceptive management V25.9 Resolved Taiwo [...] gestation of V28.9 Inactive 2017 Nayeli Duke CANDY ROLLING MACHINE OPERATOR Encounter for unspecified scre ening of mother [...] weeks gestation of V28.9 Inactive 2017 Nayeli [place] CANDY ROLLING MACHINE OPERATOR Encounter for unspecified scre ening of mother [...] MD care, delayed ICD-V23.7 Inactive Kristin Pagan CANDY ROLLING MACHINE OPERATOR NEED FOR PROPHYLACTIC VACCINATION WITH KNVQTXG-HYISG-J UBELLA (MMR) VACCINE ICD-V06.4 Inactive Cintia Pagan CANDY ROLLING MACHINE OPERATOR Contraceptive management ICD-V25.9 Inactive Dionne Stewart MD follow-up, routine ICD-V24.2 Inacti ve Dionne Stewart MD 29 weeks gestation of ICD-V28.9 Inac tiflorentino Duke CANDY ROLLING MACHINE OPERATOR Abnormal biochemical finding on screening ICD-796.5 Inactive Dionne Stewart MD Sinusitis, acute frontal ICD-461.1 Inactive Doinne Stewart MD GDM, diet controlled ICD-648.80 Inactive Dionne Stewart MD Gestation period greater than or equal to 37 weeks ICD-765.29 Inactive Dionne Stewart MD Medication List Medication Instructions Start Date Stop Date Generic Name NDC Status Provider Patient Instruction FLAGYL 500 MG ORAL TABLET 1 tablet by mouth bid METRONIDAZOLE 57440914115 Active Estela Clifton LPN Active CONCEPT DHA 53.5-38-1 MG ORAL CAPSULE one tab PO daily FUAKSK-NMPIM-MIRC-FA-OMEGA 3 30735391083 No Longer Active Dionne Stewart MD Active LORATADINE 10 MG ORAL TABLET 1 tablet by mouth daily 2 LORATADINE 45214598354 No Longer Active Dionne Stewart MD Active FERROUS SULFATE 325 (65 FE) MG ORAL TABLET 1 tablet daily 5 FERROUS SULFATE 73271041712 No Longer Active Dionne Stewart MD Acti ve LANCETS Test blood sugars as directed for gestational DM O24.420 LANCETS 32082785202 No Longer Active Dionne Stewart MD A ctive TRUE METRIX GO GLUCOSE METER W/DEVICE KIT Check blood sugars as directed BLOOD GLUCOSE MONITORING SUPPL 26894864404 N o Longer Active Dionne Stewart MD Active TRUE METRIX BLOOD GLUCOSE TEST IN VITRO STRIP Check bl ood sugars four times a day as directed for gestational DM; O24.420 GLUC OSE BLOOD 28075417147 No Longer Active Dionne Stewart MD Active PROMETHAZINE HCL 12.5 MG ORAL TABLET 1 tablet by mouth every 4 hours as needed for nausea/vomiting PROMETHAZINE HCL 10692621524 No L onger Active Dionne Stewart MD Active DIFLUCAN 150 MG ORAL TABLET 1 tablet by mouth daily 10/07/30 FLUCONAZOLE 53145652464 No Longer Active Megan Wise Active ACYCLOVIR 400 MG ORAL TABLET One tab PO BID until delivery 06/23 ACYCLOVIR 46113307581 No Longer Active Dinone Stewart MD A ctive SKLICE 0.5 % EXTERNAL LOTION Apply 4oz to dry hair and rinse of after 10 minutes IVERMECTIN 77662316299 No Longer Active Megan Northclarence lowe Active AUGMENTIN 875-125 MG ORAL TABLET 1 po BID x 10 days 09/06/11 AMOXICILLIN-POT CLAVULANATE 43142538563 No Longer Active Rosalina Sell CANDY ROLLING MACHINE OPERATOR Active TYLENOL PM EXTRA STRENGTH 500-25 MG ORAL TABLET PRN 12/31 DIPHENHYDRAMINE-APAP (SLEEP) 23206447793 No Longer Active Dionne Stewart MD Active FLAGYL 500 MG ORAL TABLET 1 tablet PO BID for 7 days 2 METRONIDAZOLE 55988337454 No Longer Active Dionne Stewart MD Active EQL FORMULA 28-0.8 MG ORAL TABLET 1 tablet daily 1 VIT-FE FUMARATE-FA 92400040612 No Longer Active Dionne Stewart MD A ctive CONCEPT DHA 53.5-38-1 MG ORAL CAPSULE one tab PO daily IAHGKH-VBPHP-ZROZ-FA-OMEGA 3 79137909310 No Longer Active Dionne Stewart MD Active CYCLOBENZAPRINE HCL 10 MG ORAL TABLET 1 tablet by mout h three times daily as needed for muscle spasm/pain CYCLOBENZAPRINE HCL 80623765849 No Longer Active Dionne Stewart MD Active TRI-SPRINTEC 0.18/0.215/0.25 MG-35 MCG ORAL TABLET 1 po qd a s directed NORGESTIM-ETH ESTRAD TRIPHASIC 26802142070 N o Longer Active Dionne Stewart MD Active FLAGYL 250 MG ORAL TABLET One tablet three times a day METRONIDAZOLE 10053599815 No Longer Active Cintia Pagan APRN Active [facility] 28-0.8 MG ORAL TABLET 04/10 VIT-FE FUMARATE-FA 76966203042 No Longer Active Dionne Stewart MD Active [facility] 28-0.8 MG ORAL TABLET 04/10 [facility] 28-0.8 MG ORAL TABLET VIT-FE FUMARATE-FA Inactive TRI-SPRINTEC 0.18/0.215/0.25 MG-35 MCG ORAL TABLET 1 po qd a s directed TRI-SPRINTEC 0.18/0.215/0.25 MG-35 MCG ORAL TABL ET 589406 NORGESTIM-ETH ESTRAD TRIPHASIC Inactive CYCLOBENZAPRINE HCL 10 MG ORAL TABLET 1 tablet by mout h three times daily as needed for muscle spasm/pain CYCLOBENZAP RINE HCL 10 MG ORAL TABLET 747925 CYCLOBENZAPRINE HCL Inactive CONCEPT DHA 53.5-38-1 MG ORAL CAPSULE one tab PO daily CONCEPT DHA 53.5-38-1 MG ORAL CAPSULE KLIRIZ-KWYJA-ZXJO-FA-O BILLIE 3 Inactive FLAGYL 500 MG ORAL TABLET 1 tablet PO BID for 7 days 2 FLAGYL 500 MG ORAL TABLET 241543 METRONIDAZOLE Inactive TYLENOL PM EXTRA STRENGTH 500-25 MG ORAL TABLET PRN 12/31 TYLENOL PM EXTRA STRENGTH 500-25 MG ORAL TABLET 4377317 DIPHEN HYDRAMINE-APAP (SLEEP) Inactive SKLICE 0.5 % EXTERNAL LOTION Apply 4oz to dry hair and rinse of after 10 minutes SKLICE 0.5 % EXTERNAL LOTION IVERMEC TIN Inactive DIFLUCAN 150 MG ORAL TABLET 1 tablet by mouth daily 20 10/07/30 DIFLUCAN 150 MG ORAL TABLET 507016 FLUCONAZOLE Inactive PROMETHAZINE HCL 12.5 MG ORAL TABLET 1 tablet by mouth every 4 hours as needed for nausea/vomiting PROMETHAZINE HCL 12.5 MG ORA L TABLET 013870 PROMETHAZINE HCL Inactive TRUE METRIX BLOOD GLUCOSE [...] as directed for gestational DM O24.420 LANCETS 00203088817 LANCETS Inactive FERROUS SULFATE 325 (65 FE) MG ORAL TABLET 1 tablet daily 5 FERROUS SULFATE 325 (65 FE) MG ORAL TABLET 041325 FERROUS SULFATE Inactive LORATADINE 10 MG ORAL TABLET 1 tablet by mouth daily 2 LORATADINE 10 MG ORAL TABLET 415896 LORATADINE Inactive CONCEPT DHA 53.5-38-1 MG ORAL CAPSULE one tab PO daily CONCEPT DHA 53.5-38-1 MG ORAL CAPSULE AJAXVI-PRJGH-FJLT-FA-O BILLIE 3 Inactive FLAGYL 250 MG ORAL TABLET One tablet three times a day FLAGYL 250 MG ORAL TABLET 922243 METRONIDAZOLE Inactive AUGMENTIN 875-125 MG ORAL TABLET 1 po BID x 10 days 09/06/11 AUGMENTIN 875-125 MG ORAL TABLET 064157 AMOXICILLIN-POT CLAVULANATE Inactive ACYCLOVIR 400 MG ORAL TABLET One tab PO BID until delivery 06/23 ACYCLOVIR 400 MG ORAL TABLET 327900 ACYCLOVIR Emmalena ctive Immunizations Vaccine Administration Date Value Standard [...] 11 .0-15.0 platelet count 226 THOUSAND/UL 10*3/mm3 708-287 6136/05/11 mean platelet volume 10.3 fL 7.5-12.5 Blood [...] SCREEN, RBCW/REFL I , Drug Abuse Pnl 10-13/95290 - Blood bank antibody screen, serum NO ANTIBODIES DETECTED Lab Report: CBC, [id number] Gluc cari-1spec - Hematology leukocyte count, blood [...] 201 10^3/MM^3 10*3/mm3 142-424 Lab Report: Chlamydia/GC APTIMA/51449 - Lab chlamydia DNA probe NOT DETECTED NOT DETECTED Lab Report: Chlamydia/GC APTIMA/09483 - Microbiology Neisseria gonorrhoeae DNA probe NOT DETECTED NO T DETECTED Lab Report: Chlamydia/GC APTIMA/04749, H EPATITIS B S AG W/, HIV-1/2 Agn/ ... - Chemistry hepatitis B surface antigen NON-REACTIVE NON-RE ACTIVE rapid plasma reagin antibody titer NON-REACTIVE NON-REACTIVE Lab Report: Chlamydia/GC APTIMA/37070, H EPATITIS B S AG W/, HIV-1/2 Agn/ ... - Lab chlamydia DNA probe NOT DETECTED NOT DETECTED Lab Report: Chlamydia/GC APTIMA/99359, H EPATITIS B S AG W/, HIV-1/2 Agn/ ... - Microbiology Neisseria gonorrhoeae DNA probe NOT DETECTED NO T DETECTED Lab Report: HEPATITIS B S AG W/, HIV-1/2 Agn/Mikaela/74453, RPR (DX) W/REFL ... - Chemistry hepatitis [...] pH, urine, semiquantitative 7.0 5.0-8.5 Lab Report: [facility] – [...] N Encounters Code Encounter Date Provider Facility CPT-29949 Level 3 Est. Patient 14:03:17 CDT Dionne bey MD [facility] CPT-88827 Level 4 Est. Patient 15:39:57 CDT Nayeli herrera [facility] CPT-01616 Level 3 Est. Patient 17:26:51 CDT Rosalina berg [facility] CPT-75775 Level 3 Est. Patient 17:31:05 ELECTRICAL MAINTENANCE WORKER Cintia sommer [facility] Procedures Code Procedure Name Date Entry Date Standard Desc ription CPT-34370 Visit 10:15:43 ELECTRICAL MAINTENANCE WORKER CPT-98727 Visit 13:02:58 ELECTRICAL MAINTENANCE WORKER CPT-28279 Visit 12:11:18 ELECTRICAL MAINTENANCE WORKER CPT-11914 Visit 10:38:39 CDT CPT-33868 Visit 08:28:55 CDT CPT-20861 Addl Vx - Ix admin via ID IM or jet injects without counseling by physician 18:18:11 CDT CPT-91835 Boostrix Intramuscular Suspension 5-2.5-18.5 201 04/01/05 18:18:11 CDT CPT-78962 First Vx - Ix admin via ID I M or jet injects without counseling by physician 18:18:11 CDT CPT-68854 Flulaval Intramuscular Injectable 18:18:11 CDT CPT-17684 Fluzone Thim Free 36mo and older 11:16:54 C DT CPT-02631 Tdap 7yrs or > 11:16:53 CDT CPT-59944 Visit 11:16:53 CDT CPT-08331 Visit 11:14:16 CDT CPT-78731 Visit 10:54:00 CDT CPT-54914 Visit 16:24:31 CDT CPT-45377 Sono OB comp > 14 weeks - XRAY USE ONLY 12:01:14 CDT CPT-53303 Visit 15:58:08 CDT CPT-59280 Visit 12:16:56 CDT CPT-15792N Sono OB comp <14 weeks ([place] Only) - X RAY USE ONLY 12:09:02 CDT CPT-29831 Spec Collection and Handling Fee 10:11:50 C DT CPT-30282 Visit 10:11:49 CDT CPT-J1050 Depo Provera 150 mg (Medroxyprogesterone) 08/30 16:06:30 ELECTRICAL MAINTENANCE WORKER CPT-60250 Abx/Therapy Injection 16:06:30 ELECTRICAL MAINTENANCE WORKER CPT-J1050 Depo Provera 150 mg (Medroxyprogesterone) 08/30 15:39:17 ELECTRICAL MAINTENANCE WORKER CPT-24619 Visit 15:01:38 CDT CPT-53503 Sono OB comp > 14 weeks 16:05:04 CDT 03/18 CPT-09448 Spec Collection and Handling Fee 10:45:40 C DT CPT-88536 Visit 10:45:40 CDT
--- OUTSIDE RECORDS SUMMARY | 2020-01-04 23:41 | XMS REPORT | Clinical Summary ---
Author Author Admin, Giuliana Flores Organization [facility] Address Unknown Phone Unavailable Allergies, Adverse Reactions, [...] risk , second trimester V23.9 2014 Inactive Doinne Stewart MD Supervision of unspecified high -risk [...] use disorder NEED FOR PROPHYLACTIC VACCINATION WITH WCCHUWB-VRRRO-R UBELLA (MMR) VACCINE V06.4 Resolved Cintia Pagan APRN Need for prophylactic vaccination with szmxzoc-kuiqq-bbrmkml [MMR] vaccine Contraceptive management V25.9 Resolved Taiwo [...] gestation of V28.9 Inactive 2017 Nayeli Duke INTERPRETER Encounter for unspecified scre ening of mother [...] weeks gestation of V28.9 Inactive 2017 Nayeli [place] INTERPRETER Encounter for unspecified scre ening of mother [...] MD care, delayed ICD-V23.7 Inactive Kristin Pagan INTERPRETER NEED FOR PROPHYLACTIC VACCINATION WITH VQYYBUZ-IHICR-D UBELLA (MMR) VACCINE ICD-V06.4 Inactive Cintia Pagan INTERPRETER Contraceptive management ICD-V25.9 Inactive Dionne Stewart MD follow-up, routine ICD-V24.2 Inacti ve Dionne Stewart MD 29 weeks gestation of ICD-V28.9 Inac tiflorentino Duke INTERPRETER Abnormal biochemical finding on screening ICD-796.5 Inactive [...] TABLET 1 tablet by mouth bid METRONIDAZOLE 23325947268 Active Estela Clifton LPN Active CONCEPT DHA 53.5-38-1 MG ORAL CAPSULE one tab PO daily LFKLPM-LXLYV-FIRZ-FA-OMEGA 3 46571499520 No Longer Active Dionne Stewart MD Active LORATADINE 10 MG ORAL TABLET 1 tablet by mouth daily 2 LORATADINE 92325157105 No Longer Active Dionne Stewart MD Active FERROUS SULFATE 325 (65 FE) MG ORAL TABLET 1 tablet daily 5 FERROUS SULFATE 93013045944 No Longer Active Dionne Stewart MD Acti ve LANCETS Test blood sugars as directed for gestational DM O24.420 LANCETS 72207850464 No Longer Active Dionne Stewart MD A ctive TRUE METRIX GO GLUCOSE METER W/DEVICE KIT Check blood sugars as directed BLOOD GLUCOSE MONITORING SUPPL 36140006338 N o Longer Active Dionne Stewart MD Active TRUE METRIX BLOOD GLUCOSE TEST IN VITRO STRIP Check bl ood sugars four times a day as directed for gestational DM; O24.420 GLUC OSE BLOOD 83993758055 No Longer Active Dionne Stewart MD Active PROMETHAZINE HCL 12.5 MG ORAL TABLET 1 tablet by mouth every 4 hours as needed for nausea/vomiting PROMETHAZINE HCL 25332278199 No L onger Active Dionne Stewart MD Active DIFLUCAN 150 MG ORAL TABLET 1 tablet by mouth daily 10/07/30 FLUCONAZOLE 76556189992 No Longer Active Megan Wise Active ACYCLOVIR 400 MG ORAL TABLET One tab PO BID until delivery 06/23 ACYCLOVIR 66441641245 No Longer Active Dionne Stewart MD A ctive SKLICE 0.5 % EXTERNAL LOTION Apply 4oz to dry hair and rinse of after 10 minutes IVERMECTIN 53656664668 No Longer Active Megan Northclarence lowe Active AUGMENTIN 875-125 MG ORAL TABLET 1 po BID x 10 days 09/06/11 AMOXICILLIN-POT CLAVULANATE 37754153894 No Longer Active Rosalina Sell INTERPRETER Active TYLENOL PM EXTRA STRENGTH 500-25 MG ORAL TABLET PRN 12/31 DIPHENHYDRAMINE-APAP (SLEEP) 44027980758 No Longer Active Dionne Stewart MD Active FLAGYL 500 MG ORAL TABLET 1 tablet PO BID for 7 days 2 METRONIDAZOLE 68461880050 No Longer Active Dionne Stewart MD Active EQL FORMULA 28-0.8 MG ORAL TABLET 1 tablet daily 1 VIT-FE FUMARATE-FA 30226234052 No Longer Active Dionne Stewart MD A ctive CONCEPT DHA 53.5-38-1 MG ORAL CAPSULE one tab PO daily RKIMRN-HFBRX-IFZN-FA-OMEGA 3 80744534412 No Longer Active Dionne Stewart MD Active CYCLOBENZAPRINE HCL 10 MG ORAL TABLET 1 tablet by mout h three times daily as needed for muscle spasm/pain CYCLOBENZAPRINE HCL 42309159854 No Longer Active Dionne Stewart MD Active TRI-SPRINTEC 0.18/0.215/0.25 MG-35 MCG ORAL TABLET 1 po qd a s directed NORGESTIM-ETH ESTRAD TRIPHASIC 07719583364 N o Longer Active Dionne Stewart MD Active FLAGYL 250 MG ORAL TABLET One tablet three times a day METRONIDAZOLE 14345530343 No Longer Active Cintia Pagan APRN Active [facility] 28-0.8 MG ORAL TABLET 04/10 VIT-FE FUMARATE-FA 73781672934 No Longer Active Dionne Stewart MD Active [facility] 28-0.8 MG ORAL TABLET 04/10 [facility] 28-0.8 MG ORAL TABLET VIT-FE FUMARATE-FA Inactive TRI-SPRINTEC 0.18/0.215/0.25 MG-35 MCG ORAL TABLET 1 po qd a s directed TRI-SPRINTEC 0.18/0.215/0.25 MG-35 MCG ORAL TABL ET 851910 NORGESTIM-ETH ESTRAD TRIPHASIC Inactive CYCLOBENZAPRINE HCL 10 MG ORAL TABLET 1 tablet by mout h three times daily as needed for muscle spasm/pain CYCLOBENZAP RINE HCL 10 MG ORAL TABLET 290245 CYCLOBENZAPRINE HCL Inactive CONCEPT DHA 53.5-38-1 MG ORAL CAPSULE one tab PO daily CONCEPT DHA 53.5-38-1 MG ORAL CAPSULE DRVMWZ-IYIQJ-XPDP-FA-O BILLIE 3 Inactive FLAGYL 500 MG ORAL TABLET 1 tablet PO BID for 7 days 2 FLAGYL 500 MG ORAL TABLET 435400 METRONIDAZOLE Inactive TYLENOL PM EXTRA STRENGTH 500-25 MG ORAL TABLET PRN 12/31 TYLENOL PM EXTRA STRENGTH 500-25 MG ORAL TABLET 9472449 DIPHEN HYDRAMINE-APAP (SLEEP) Inactive SKLICE 0.5 % EXTERNAL LOTION Apply 4oz to dry hair and rinse of after 10 minutes SKLICE 0.5 % EXTERNAL LOTION IVERMEC TIN Inactive DIFLUCAN 150 MG ORAL TABLET 1 tablet by mouth daily 20 10/07/30 DIFLUCAN 150 MG ORAL TABLET 582155 FLUCONAZOLE Inactive PROMETHAZINE HCL 12.5 MG ORAL TABLET 1 tablet by mouth every 4 hours as needed for nausea/vomiting PROMETHAZINE HCL 12.5 MG ORA L TABLET 505394 PROMETHAZINE HCL Inactive TRUE METRIX BLOOD GLUCOSE [...] as directed for gestational DM O24.420 LANCETS 88359705275 LANCETS Inactive FERROUS SULFATE 325 (65 FE) MG ORAL TABLET 1 tablet daily 5 FERROUS SULFATE 325 (65 FE) MG ORAL TABLET 162997 FERROUS SULFATE Inactive LORATADINE 10 MG ORAL TABLET 1 tablet by mouth daily 2 LORATADINE 10 MG ORAL TABLET 401667 LORATADINE Inactive CONCEPT DHA 53.5-38-1 MG ORAL CAPSULE one tab PO daily CONCEPT DHA 53.5-38-1 MG ORAL CAPSULE JPYSWI-PVWUV-ZILM-FA-O BILLIE 3 Inactive FLAGYL 250 MG ORAL TABLET One tablet three times a day FLAGYL 250 MG ORAL TABLET 006812 METRONIDAZOLE Inactive AUGMENTIN 875-125 MG ORAL TABLET 1 po BID x 10 days 09/06/11 AUGMENTIN 875-125 MG ORAL TABLET 886225 AMOXICILLIN-POT CLAVULANATE Inactive ACYCLOVIR 400 MG ORAL TABLET One tab PO BID until delivery 06/23 ACYCLOVIR 400 MG ORAL TABLET 268995 ACYCLOVIR [place] ctive Immunizations Vaccine Administration Date Value Standard [...] 11 .0-15.0 platelet count 226 THOUSAND/UL 10*3/mm3 125-814 6740/05/11 mean platelet volume 10.3 fL 7.5-12.5 Blood [...] SCREEN, RBCW/REFL I , Drug Abuse Pnl 10-13/65875 - Blood bank antibody screen, serum NO ANTIBODIES DETECTED Lab Report: CBC, LNTQTSacp1Rd--28qi Gluc cari-1spec - Hematology leukocyte count, blood [...] 201 10^3/MM^3 10*3/mm3 142-424 Lab Report: Chlamydia/GC APTIMA/34394 - Lab chlamydia DNA probe NOT DETECTED NOT DETECTED Lab Report: Chlamydia/GC APTIMA/20371 - Microbiology Neisseria gonorrhoeae DNA probe NOT DETECTED NO T DETECTED Lab Report: Chlamydia/GC APTIMA/01597, H EPATITIS B S AG W/, HIV-1/2 Agn/ ... - Chemistry hepatitis B surface antigen NON-REACTIVE NON-RE ACTIVE rapid plasma reagin antibody titer NON-REACTIVE NON-REACTIVE Lab Report: Chlamydia/GC APTIMA/81038, H EPATITIS B S AG W/, HIV-1/2 Agn/ ... - Lab chlamydia DNA probe NOT DETECTED NOT DETECTED Lab Report: Chlamydia/GC APTIMA/35932, H EPATITIS B S AG W/, HIV-1/2 Agn/ ... - Microbiology Neisseria gonorrhoeae DNA probe NOT DETECTED NO T DETECTED Lab Report: HEPATITIS B S AG W/, HIV-1/2 Agn/Mikaela/30994, RPR (DX) W/REFL ... - Chemistry hepatitis [...] pH, urine, semiquantitative 7.0 5.0-8.5 [place] [facility] [place] human chorionic gonadotropin , urine, [...] N Encounters Code Encounter Date Provider Facility CPT-28317 Level 3 Est. Patient 14:03:17 CDT Dionne bey MD [facility] CPT-69561 Level 4 Est. Patient 15:39:57 CDT Nayeli herrera [facility] CPT-33821 Level 3 Est. Patient 17:26:51 CDT Rosalina berg [facility] CPT-66224 Level 3 Est. Patient 17:31:05 DIGITAL FORENSIC ANALYST Cintia sommer [facility] Procedures Code Procedure Name Date Entry Date Standard Desc ription CPT-67628 Visit 10:15:43 DIGITAL FORENSIC ANALYST CPT-47810 Visit 13:02:58 DIGITAL FORENSIC ANALYST CPT-01131 Visit 12:11:18 DIGITAL FORENSIC ANALYST CPT-78755 Visit 10:38:39 CDT CPT-03711 Visit 08:28:55 CDT CPT-49467 Addl Vx - Ix admin via ID IM or jet injects without counseling by physician 18:18:11 CDT CPT-51857 Boostrix Intramuscular Suspension 5-2.5-18.5 201 04/01/05 18:18:11 CDT CPT-81569 First Vx - Ix admin via ID I M or jet injects without counseling by physician 18:18:11 CDT CPT-40368 Flulaval Intramuscular Injectable 18:18:11 CDT CPT-74057 Fluzone Thim Free 36mo and older 11:16:54 C DT CPT-08340 Tdap 7yrs or > 11:16:53 CDT CPT-51802 Visit 11:16:53 CDT CPT-03535 Visit 11:14:16 CDT CPT-48723 Visit 10:54:00 CDT CPT-28758 Visit 16:24:31 CDT CPT-07998 Sono OB comp > 14 weeks - XRAY USE ONLY 12:01:14 CDT CPT-47863 Visit 15:58:08 CDT CPT-01108 Visit 12:16:56 CDT CPT-88790Y Sono OB comp <14 weeks ([place] Only) - X RAY USE ONLY 12:09:02 CDT CPT-26298 Spec Collection and Handling Fee 10:11:50 C DT CPT-24368 Visit 10:11:49 CDT CPT-J1050 Depo Provera 150 mg (Medroxyprogesterone) 08/30 16:06:30 DIGITAL FORENSIC ANALYST CPT-95888 Abx/Therapy Injection 16:06:30 DIGITAL FORENSIC ANALYST CPT-J1050 Depo Provera 150 mg (Medroxyprogesterone) 08/30 15:39:17 DIGITAL FORENSIC ANALYST CPT-78170 Visit 15:01:38 CDT CPT-93259 Sono OB comp > 14 weeks 16:05:04 CDT 03/18 CPT-93842 Spec Collection and Handling Fee 10:45:40 C DT CPT-34753 Visit 10:45:40 CDT
--- OUTSIDE RECORDS SUMMARY | 2020-01-04 23:41 | XMS REPORT | Clinical Summary ---
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 Encounter for unspecified scre ening of mother [...] weeks gestation of V28.9 Inactive 2017 Nayeli [place] EARLY CHILDHOOD EDUCATION WORKER Encounter for unspecified scre ening of mother 31 weeks gestation of V28.9 Inactive 2017 Dionne Stewart MD Encounter for unspecified scre ening of mother 33 weeks gestation of V28.9 Inactive 2017 Dionne Steawrt MD Encounter for unspecified scre ening of [...] MD care, delayed ICD-V23.7 Inactive Kristin Pagan EARLY CHILDHOOD EDUCATION WORKER NEED FOR PROPHYLACTIC VACCINATION WITH BXDMZIF-IRYII-N UBELLA (MMR) VACCINE ICD-V06.4 Inactive Cintia Pagan EARLY CHILDHOOD EDUCATION WORKER Contraceptive management ICD-V25.9 Inactive Dionne Stewart MD follow-up, routine ICD-V24.2 Inacti ve Dionne Stewart MD 29 weeks gestation of ICD-V28.9 Inac tiflorentino Duke EARLY CHILDHOOD EDUCATION WORKER Abnormal biochemical finding on screening ICD-796.5 Inactive [...] TABLET 1 tablet by mouth bid METRONIDAZOLE 24829573330 Active Estela Clifton LPN Active CONCEPT DHA 53.5-38-1 MG ORAL CAPSULE one tab PO daily YCWFUQ-ICCJQ-XVLJ-FA-OMEGA 3 69819307080 No Longer Active Dionne Stewart MD Active LORATADINE 10 MG ORAL TABLET 1 tablet by mouth daily 2 LORATADINE 77410952200 No Longer Active Dionne Stewart MD Active FERROUS SULFATE 325 (65 FE) MG ORAL TABLET 1 tablet daily 5 FERROUS SULFATE 21945668104 No Longer Active Dionne Stewart MD Acti ve LANCETS Test blood sugars as directed for gestational DM O24.420 LANCETS 05723242617 No Longer Active Dionne Stewart MD A ctive TRUE METRIX GO GLUCOSE METER W/DEVICE KIT Check blood sugars as directed BLOOD GLUCOSE MONITORING SUPPL 64921539488 N o Longer Active Dionne Stewart MD Active TRUE METRIX BLOOD GLUCOSE TEST IN VITRO STRIP Check bl ood sugars four times a day as directed for gestational DM; O24.420 GLUC OSE BLOOD 16665751637 No Longer Active Dionne Stewart MD Active PROMETHAZINE HCL 12.5 MG ORAL TABLET 1 tablet by mouth every 4 hours as needed for nausea/vomiting PROMETHAZINE HCL 03325142593 No L onger Active Dionne Stewart MD Active DIFLUCAN 150 MG ORAL TABLET 1 tablet by mouth daily 10/07/30 FLUCONAZOLE 38346707610 No Longer Active Megan Wise Active ACYCLOVIR 400 MG ORAL TABLET One tab PO BID until delivery 06/23 ACYCLOVIR 34795814855 No Longer Active Dionne Stewart MD A ctive SKLICE 0.5 % EXTERNAL LOTION Apply 4oz to dry hair and rinse of after 10 minutes IVERMECTIN 83557972059 No Longer Active Megan [place] lowe Active AUGMENTIN 875-125 MG ORAL TABLET 1 po BID x 10 days 09/06/11 AMOXICILLIN-POT CLAVULANATE 14748225375 No Longer Active Rosalina Sell EARLY CHILDHOOD EDUCATION WORKER Active TYLENOL PM EXTRA STRENGTH 500-25 MG ORAL TABLET PRN 12/31 DIPHENHYDRAMINE-APAP (SLEEP) 42137091689 No Longer Active Dionne Stewart MD Active FLAGYL 500 MG ORAL TABLET 1 tablet PO BID for 7 days 2 METRONIDAZOLE 99370382836 No Longer Active Dionne Stewart MD Active EQL FORMULA 28-0.8 MG ORAL TABLET 1 tablet daily 1 VIT-FE FUMARATE-FA 88670560956 No Longer Active Dionne Stewart MD A ctive CONCEPT DHA 53.5-38-1 MG ORAL CAPSULE one tab PO daily RAIWLX-DZECL-CODJ-FA-OMEGA 3 26337332583 No Longer Active Dionne Stewart MD Active CYCLOBENZAPRINE HCL 10 MG ORAL TABLET 1 tablet by mout h three times daily as needed for muscle spasm/pain CYCLOBENZAPRINE HCL 17232983638 No Longer Active Dionne Stewart MD Active TRI-SPRINTEC 0.18/0.215/0.25 MG-35 MCG ORAL TABLET 1 po qd a s directed NORGESTIM-ETH ESTRAD TRIPHASIC 12492848460 N o Longer Active Dionne Stewart MD Active FLAGYL 250 MG ORAL TABLET One tablet three times a day METRONIDAZOLE 53158871340 No Longer Active Cintia Pagan APRN Active [facility] 28-0.8 MG ORAL TABLET 04/10 VIT-FE FUMARATE-FA 60621778168 No Longer Active Dionne Stewart MD Active [facility] 28-0.8 MG ORAL TABLET 04/10 [facility] 28-0.8 MG ORAL TABLET VIT-FE FUMARATE-FA Inactive TRI-SPRINTEC 0.18/0.215/0.25 MG-35 MCG ORAL TABLET 1 po qd a s directed TRI-SPRINTEC 0.18/0.215/0.25 MG-35 MCG ORAL TABL ET 788229 NORGESTIM-ETH ESTRAD TRIPHASIC Inactive CYCLOBENZAPRINE HCL 10 MG ORAL TABLET 1 tablet by mout h three times daily as needed for muscle spasm/pain CYCLOBENZAP RINE HCL 10 MG ORAL TABLET 828968 CYCLOBENZAPRINE HCL Inactive CONCEPT DHA 53.5-38-1 MG ORAL CAPSULE one tab PO daily CONCEPT DHA 53.5-38-1 MG ORAL CAPSULE HWSGWA-NMAIV-PLDU-FA-O BILLIE 3 Inactive FLAGYL 500 MG ORAL TABLET 1 tablet PO BID for 7 days 2 FLAGYL 500 MG ORAL TABLET 607681 METRONIDAZOLE Inactive TYLENOL PM EXTRA STRENGTH 500-25 MG ORAL TABLET PRN 12/31 TYLENOL PM EXTRA STRENGTH 500-25 MG ORAL TABLET 0999492 DIPHEN HYDRAMINE-APAP (SLEEP) Inactive SKLICE 0.5 % EXTERNAL LOTION Apply 4oz to dry hair and rinse of after 10 minutes SKLICE 0.5 % EXTERNAL LOTION IVERMEC TIN Inactive DIFLUCAN 150 MG ORAL TABLET 1 tablet by mouth daily 20 10/07/30 DIFLUCAN 150 MG ORAL TABLET 289004 FLUCONAZOLE Inactive PROMETHAZINE HCL 12.5 MG ORAL TABLET 1 tablet by mouth every 4 hours as needed for nausea/vomiting PROMETHAZINE HCL 12.5 MG ORA L TABLET 048543 PROMETHAZINE HCL Inactive TRUE METRIX BLOOD GLUCOSE [...] as directed for gestational DM O24.420 LANCETS 44429653234 LANCETS Inactive FERROUS SULFATE 325 (65 FE) MG ORAL TABLET 1 tablet daily 5 FERROUS SULFATE 325 (65 FE) MG ORAL TABLET 551973 FERROUS SULFATE Inactive LORATADINE 10 MG ORAL TABLET 1 tablet by mouth daily 2 LORATADINE 10 MG ORAL TABLET 826527 LORATADINE Inactive CONCEPT DHA 53.5-38-1 MG ORAL CAPSULE one tab PO daily CONCEPT DHA 53.5-38-1 MG ORAL CAPSULE FACFIO-SJGON-RREJ-FA-O BILLIE 3 Inactive FLAGYL 250 MG ORAL TABLET One tablet three times a day FLAGYL 250 MG ORAL TABLET 155775 METRONIDAZOLE Inactive AUGMENTIN 875-125 MG ORAL TABLET 1 po BID x 10 days 09/06/11 AUGMENTIN 875-125 MG ORAL TABLET 272414 AMOXICILLIN-POT CLAVULANATE Inactive ACYCLOVIR 400 MG ORAL TABLET One tab PO BID until delivery 06/23 ACYCLOVIR 400 MG ORAL TABLET 218069 ACYCLOVIR [place] ctive Immunizations Vaccine Administration Date Value Standard [...] 11 .0-15.0 platelet count 226 THOUSAND/UL 10*3/mm3 763-888 2425/05/11 mean platelet volume 10.3 fL 7.5-12.5 Lab [...] SCREEN, RBCW/REFL I , Drug Abuse Pnl 10-72/14179 - Blood bank antibody screen, serum NO ANTIBODIES DETECTED Lab Report: CBC, [id number] Gluc cari-1spec - Hematology leukocyte count, blood 10.2 10^3/MM^3 10*3/mm3 4.6-10.2 mean corpuscular hemoglobin concentration, RBC 33.9 G/DL % 31.8-35.4 red blood cell distribution width 11.1 % 13 .0-18.0 platelet count 201 10^3/MM^3 10*3/mm3 872-549 4500/09/21 erythrocyte (RBC) count 3.30 10^6/MM^3 10*6/mm3 3.80-5.8 0 hemoglobin, blood 10.5 g/dL 12.0-16.0 hematocrit, blood 31.1 % 37.0-47.0 mean corpuscular volume, RBC 94 fL 80-97 mean corpuscular hemoglobin, RBC 31.9 pg 27. 0-31.2 Lab Report: Chlamydia/GC APTIMA/78927 - Lab chlamydia DNA probe NOT DETECTED NOT DETECTED Lab Report: Chlamydia/GC APTIMA/42533 - Microbiology Neisseria gonorrhoeae DNA probe NOT DETECTED NO T DETECTED Lab Report: Chlamydia/GC APTIMA/60387, H EPATITIS B S AG W/, HIV-1/2 Agn/ ... - Chemistry hepatitis B surface antigen NON-REACTIVE NON-RE ACTIVE rapid plasma reagin antibody titer NON-REACTIVE NON-REACTIVE Lab Report: Chlamydia/GC APTIMA/78903, H EPATITIS B S AG W/, HIV-1/2 Agn/ ... - Lab chlamydia DNA probe NOT DETECTED NOT DETECTED Lab Report: Chlamydia/GC APTIMA/50272, H EPATITIS B S AG W/, HIV-1/2 Agn/ ... - Microbiology Neisseria gonorrhoeae DNA probe NOT DETECTED NO T DETECTED Lab Report: HEPATITIS B S AG W/, HIV-1/2 Agn/Mikaela/74056, RPR (DX) W/REFL ... - Chemistry hepatitis [...] pH, urine, semiquantitative 7.0 5.0-8.5 Lab Report: [facility] [place] - Chemistry human chorionic gonadotropin , urine, [...] urine, semiquantitative N glucose, urine, semiquantitative N glucose, urine, semiquantitative 4+ [...] N Encounters Code Encounter Date Provider Facility CPT-21267 Level 3 Est. Patient 14:03:17 CDT Dionne bey MD [facility] CPT-97641 Level 4 Est. Patient 15:39:57 CDT Nayeli herrera [facility] CPT-77911 Level 3 Est. Patient 17:26:51 CDT Rosalina berg [facility] CPT-14027 Level 3 Est. Patient 17:31:05 ANALYTICS ARCHITECT Cintia sommer [facility] Procedures Code Procedure Name Date Entry Date Standard Desc ription CPT-27610 Visit 10:15:43 ANALYTICS ARCHITECT CPT-35872 Visit 13:02:58 ANALYTICS ARCHITECT CPT-86826 Visit 12:11:18 ANALYTICS ARCHITECT CPT-45572 Visit 10:38:39 CDT CPT-21416 Visit 08:28:55 CDT CPT-92649 Addl Vx - Ix admin via ID IM or jet injects without counseling by physician 18:18:11 CDT CPT-18221 Boostrix Intramuscular Suspension 5-2.5-18.5 201 04/01/05 18:18:11 CDT CPT-12836 First Vx - Ix admin via ID I M or jet injects without counseling by physician 18:18:11 CDT CPT-14689 Flulaval Intramuscular Injectable 18:18:11 CDT CPT-75473 Fluzone Thim Free 36mo and older 11:16:54 C DT CPT-07110 Tdap 7yrs or > 11:16:53 CDT CPT-01117 Visit 11:16:53 CDT CPT-05860 Visit 11:14:16 CDT CPT-84611 Visit 10:54:00 CDT CPT-27966 Visit 16:24:31 CDT CPT-01167 Sono OB comp > 14 weeks - XRAY USE ONLY 12:01:14 CDT CPT-05358 Visit 15:58:08 CDT CPT-67243 Visit 12:16:56 CDT CPT-90347B Sono OB comp <14 weeks ([place] Only) - X RAY USE ONLY 12:09:02 CDT CPT-53814 Spec Collection and Handling Fee 10:11:50 C DT CPT-31130 Visit 10:11:49 CDT CPT-J1050 Depo Provera 150 mg (Medroxyprogesterone) 08/30 16:06:30 ANALYTICS ARCHITECT CPT-63526 Abx/Therapy Injection 16:06:30 ANALYTICS ARCHITECT CPT-J1050 Depo Provera 150 mg (Medroxyprogesterone) 08/30 15:39:17 ANALYTICS ARCHITECT CPT-94707 Visit 15:01:38 CDT CPT-03912 Sono OB comp > 14 weeks 16:05:04 CDT 03/18 CPT-72907 Spec Collection and Handling Fee 10:45:40 C DT CPT-32954 Visit 10:45:40 CDT
[2020-01-04] MEDS ORDERED: fentaNYL INJECTION 100 MCG/2 ML AMP ONE (23:42)
[2020-01-04] MEDS ORDERED: BUPIVACAINE 0.25% 30 ML (SENSORCAINE) VIAL ONE (23:42)
--- OUTSIDE RECORDS SUMMARY | 2020-01-04 23:42 | XMS REPORT | Clinical Summary ---
Author Author Admin, Giuliana Flores Organization [facility] Address Unknown Phone Unavailable Allergies, Adverse [...] use disorder NEED FOR PROPHYLACTIC VACCINATION WITH CEVWBTX-TNFAX-F UBELLA (MMR) VACCINE V06.4 Resolved Cintia Pagan APRN Need for prophylactic vaccination with xsbajaq-zfbxf-kkltgzp [MMR] vaccine Contraceptive management V25.9 Resolved Taiwo [...] gestation of V28.9 Inactive 2017 Nayeli [place] SHIFT COMMANDER Encounter for unspecified scre ening of mother [...] weeks gestation of V28.9 Inactive 2017 Nayeli [place] SHIFT COMMANDER Encounter for unspecified scre ening of mother [...] MD care, delayed ICD-V23.7 Inactive Kristin Pagan SHIFT COMMANDER NEED FOR PROPHYLACTIC VACCINATION WITH XHEEYSB-QLPUN-M UBELLA (MMR) VACCINE ICD-V06.4 Inactive Cintia Pagan SHIFT COMMANDER Contraceptive management ICD-V25.9 Inactive Dionne Stewart MD follow-up, routine ICD-V24.2 Inacti ve Dionne Stewart MD 29 weeks gestation of ICD-V28.9 Inac tiflorentino Duke SHIFT COMMANDER Abnormal biochemical finding on screening ICD-796.5 Inactive Dionne Stewart MD Sinusitis, acute frontal ICD-461.1 Inactive Dionne Stewart MD GDM, diet controlled ICD-648.80 Inactive Dionne Stewart MD Gestation period greater than or equal to 37 weeks ICD-765.29 Inactive Dionne Stewart MD Medication List Medication Instructions Start Date Stop Date Generic Name NDC Status Provider Patient Instruction CONCEPT DHA 53.5-38-1 MG ORAL CAPSULE one tab PO daily XOSHSE-WSFYL-KASU-FA-OMEGA 3 56627214715 No Longer Active Doinne Stewart MD Active LORATADINE 10 MG ORAL TABLET 1 tablet by mouth daily 2 LORATADINE 60625245399 No Longer Active Dionne Stewart MD Active FERROUS SULFATE 325 (65 FE) MG ORAL TABLET 1 tablet daily 5 FERROUS SULFATE 20833145496 No Longer Active Dionne Stewart MD Acti ve LANCETS Test blood sugars as directed for gestational DM O24.420 LANCETS 79700675003 No Longer Active Dionne Stewart MD A ctive TRUE METRIX GO GLUCOSE METER W/DEVICE KIT Check blood sugars as directed BLOOD GLUCOSE MONITORING SUPPL 41777351032 N o Longer Active Dionne Stewart MD Active TRUE METRIX BLOOD GLUCOSE TEST IN VITRO STRIP Check bl ood sugars four times a day as directed for gestational DM; O24.420 GLUC OSE BLOOD 91519054149 No Longer Active Dionne Stewart MD Active PROMETHAZINE HCL 12.5 MG ORAL TABLET 1 tablet by mouth every 4 hours as needed for nausea/vomiting PROMETHAZINE HCL 17018015077 No L onger Active Dionne Stewart MD Active DIFLUCAN 150 MG ORAL TABLET 1 tablet by mouth daily 10/07/30 FLUCONAZOLE 99478530144 No Longer Active Billie Active ACYCLOVIR 400 MG ORAL TABLET One tab PO BID until delivery 06/23 ACYCLOVIR 91025613939 No Longer Active Dionne Stewart MD A ctive SKLICE 0.5 % EXTERNAL LOTION Apply 4oz to dry hair and rinse of after 10 minutes IVERMECTIN 27681599702 No Longer Active Carrol a Active AUGMENTIN 875-125 MG ORAL TABLET 1 po BID x 10 days 09/06/11 AMOXICILLIN-POT CLAVULANATE 94812914835 No Longer Active Rosalina Sell SHIFT COMMANDER Active TYLENOL PM EXTRA STRENGTH 500-25 MG ORAL TABLET PRN 12/31 DIPHENHYDRAMINE-APAP (SLEEP) 45254455364 No Longer Active Dionne Stewart MD Active FLAGYL 500 MG ORAL TABLET 1 tablet PO BID for 7 days 2 METRONIDAZOLE 40064983179 No Longer Active Dionne Stewart MD Active EQL FORMULA 28-0.8 MG ORAL TABLET 1 tablet daily 1 VIT-FE FUMARATE-FA 82452049772 No Longer Active Dionne Stewart MD A ctive CONCEPT DHA 53.5-38-1 MG ORAL CAPSULE one tab PO daily IIEVIH-XYNAH-CDYD-FA-OMEGA 3 41128291631 No Longer Active Dionne Stewart MD Active CYCLOBENZAPRINE HCL 10 MG ORAL TABLET 1 tablet by mout h three times daily as needed for muscle spasm/pain CYCLOBENZAPRINE HCL 15095396568 No Longer Active Dionne Stewart MD Active TRI-SPRINTEC 0.18/0.215/0.25 MG-35 MCG ORAL TABLET 1 po qd a s directed NORGESTIM-ETH ESTRAD TRIPHASIC 78465864591 N o Longer Active Dionne Stewart MD Active FLAGYL 250 MG ORAL TABLET One tablet three times a day METRONIDAZOLE 13230805957 No Longer Active Cintia [place] SHIFT COMMANDER Active [facility] 28-0.8 MG ORAL TABLET 04/10 VIT-FE FUMARATE-FA 37701489024 No Longer Active Dionne Stewart MD Active [facility] 28-0.8 MG ORAL TABLET 04/10 [facility] 28-0.8 MG ORAL TABLET VIT-FE FUMARATE-FA Inactive TRI-SPRINTEC 0.18/0.215/0.25 MG-35 MCG ORAL TABLET 1 po qd a s directed TRI-SPRINTEC 0.18/0.215/0.25 MG-35 MCG ORAL TABL ET 729447 NORGESTIM-ETH ESTRAD TRIPHASIC Inactive CYCLOBENZAPRINE HCL 10 MG ORAL TABLET 1 tablet by mout h three times daily as needed for muscle spasm/pain CYCLOBENZAP RINE HCL 10 MG ORAL TABLET 286393 CYCLOBENZAPRINE HCL Inactive CONCEPT DHA 53.5-38-1 MG ORAL CAPSULE one tab PO daily CONCEPT DHA 53.5-38-1 MG ORAL CAPSULE ENKGEJ-NXPEI-CLUF-FA-O BILLIE 3 Inactive FLAGYL 500 MG ORAL TABLET 1 tablet PO BID for 7 days 2 FLAGYL 500 MG ORAL TABLET 859017 METRONIDAZOLE Inactive TYLENOL PM EXTRA STRENGTH 500-25 MG ORAL TABLET PRN 12/31 TYLENOL PM EXTRA STRENGTH 500-25 MG ORAL TABLET 6462733 DIPHEN HYDRAMINE-APAP (SLEEP) Inactive SKLICE 0.5 % EXTERNAL LOTION Apply 4oz to dry hair and rinse of after 10 minutes SKLICE 0.5 % EXTERNAL LOTION IVERMEC TIN Inactive DIFLUCAN 150 MG ORAL TABLET 1 tablet by mouth daily 10/07/30 DIFLUCAN 150 MG ORAL TABLET 190609 FLUCONAZOLE Inactive PROMETHAZINE HCL 12.5 MG ORAL TABLET 1 tablet by mouth every 4 hours as needed for nausea/vomiting PROMETHAZINE HCL 12.5 MG ORA L TABLET 582602 PROMETHAZINE HCL Inactive TRUE METRIX BLOOD GLUCOSE [...] as directed for gestational DM O24.420 LANCETS 96942105559 LANCETS Inactive FERROUS SULFATE 325 (65 FE) MG ORAL TABLET 1 tablet daily 5 FERROUS SULFATE 325 (65 FE) MG ORAL TABLET 459126 FERROUS SULFATE Inactive LORATADINE 10 MG ORAL TABLET 1 tablet by mouth daily 2 LORATADINE 10 MG ORAL TABLET 503675 LORATADINE Inactive CONCEPT DHA 53.5-38-1 MG ORAL CAPSULE one tab PO daily CONCEPT DHA 53.5-38-1 MG ORAL CAPSULE JZHHWJ-IINEY-EPSI-FA-O BILLIE 3 Inactive FLAGYL 250 MG ORAL TABLET One tablet three times a day FLAGYL 250 MG ORAL TABLET 628169 METRONIDAZOLE Inactive AUGMENTIN 875-125 MG ORAL TABLET 1 po BID x 10 days 09/06/11 AUGMENTIN 875-125 MG ORAL TABLET 347236 AMOXICILLIN-POT CLAVULANATE Inactive ACYCLOVIR 400 MG ORAL TABLET One tab PO BID until delivery 06/23 ACYCLOVIR 400 MG ORAL TABLET 043715 ACYCLOVIR [place] ctive Immunizations Vaccine Administration Date [...] 11 .0-15.0 platelet count 226 THOUSAND/UL 10*3/mm3 380-688 1986/05/11 mean platelet volume 10.3 fL 7.5-12.5 Blood [...] SCREEN, RBCW/REFL I , Drug Abuse Pnl 10-50/24271 - Blood bank antibody screen, serum NO ANTIBODIES DETECTED Lab Report: CBC, [id number] Gluc cari-1spec - Hematology leukocyte count, blood [...] 201 10^3/MM^3 10*3/mm3 142-424 Lab Report: Chlamydia/GC APTIMA/53818, H EPATITIS B S AG W/, HIV-1/2 Agn/ ... - Chemistry hepatitis B surface antigen NON-REACTIVE NON-RE ACTIVE rapid plasma reagin antibody titer NON-REACTIVE NON-REACTIVE Lab Report: Chlamydia/GC APTIMA/56158, H EPATITIS B S AG W/, HIV-1/2 Agn/ ... - Lab chlamydia DNA probe NOT DETECTED NOT DETECTED Lab Report: Chlamydia/GC APTIMA/50337, H EPATITIS B S AG W/, HIV-1/2 Agn/ ... - Microbiology Neisseria gonorrhoeae DNA probe NOT DETECTED NO T DETECTED Lab Report: HEPATITIS B S AG W/, HIV-1/2 Agn/Mikaela/51109, RPR (DX) W/REFL ... - Chemistry hepatitis [...] pH, urine, semiquantitative 7.0 5.0-8.5 Lab Report: [facility] [place] - Chemistry human chorionic gonadotropin , urine, [...] N Encounters Code Encounter Date Provider Facility CPT-11144 Level 3 Est. Patient 14:03:17 CDT Dionne bey MD [facility] CPT-04438 Level 4 Est. Patient 15:39:57 CDT Nayeli herrera [facility] [place] CPT-24235 Level 3 Est. Patient 17:26:51 CDT Rosalina berg [facility] CPT-90702 Level 3 Est. Patient 17:31:05 OBSTETRICS GYN PHYSICIAN Cintia sommer [facility] Procedures Code Procedure Name Date Entry Date Standard Desc ription CPT-20356 Visit 10:15:43 OBSTETRICS GYN PHYSICIAN CPT-10537 Visit 13:02:58 OBSTETRICS GYN PHYSICIAN CPT-46983 Visit 12:11:18 OBSTETRICS GYN PHYSICIAN CPT-03292 Visit 10:38:39 CDT CPT-29592 Visit 08:28:55 CDT CPT-47583 Addl Vx - Ix admin via ID IM or jet injects without counseling by physician 18:18:11 CDT CPT-08255 Boostrix Intramuscular Suspension 5-2.5-18.5 201 04/01/05 18:18:11 CDT CPT-99155 First Vx - Ix admin via ID I M or jet injects without counseling by physician 18:18:11 CDT CPT-07326 Flulaval Intramuscular Injectable 18:18:11 CDT CPT-78958 Fluzone Thim Free 36mo and older 11:16:54 C DT CPT-80491 Tdap 7yrs or > 11:16:53 CDT CPT-33361 Visit 11:16:53 CDT CPT-06132 Visit 11:14:16 CDT CPT-61824 Visit 10:54:00 CDT CPT-26367 Visit 16:24:31 CDT CPT-60080 Sono OB comp > 14 weeks - XRAY USE ONLY 12:01:14 CDT CPT-36516 Visit 15:58:08 CDT CPT-62607 Visit 12:16:56 CDT CPT-09311C Sono OB comp <14 weeks ([place] Only) - X RAY USE ONLY 12:09:02 CDT CPT-21797 Spec Collection and Handling Fee 10:11:50 C DT CPT-26113 Visit 10:11:49 CDT CPT-J1050 Depo Provera 150 mg (Medroxyprogesterone) 08/30 16:06:30 OBSTETRICS GYN PHYSICIAN CPT-76794 Abx/Therapy Injection 16:06:30 OBSTETRICS GYN PHYSICIAN CPT-J1050 Depo Provera 150 mg (Medroxyprogesterone) 08/30 15:39:17 OBSTETRICS GYN PHYSICIAN CPT-38083 Visit 15:01:38 CDT CPT-25556 Sono OB comp > 14 weeks 16:05:04 CDT 03/18 CPT-51540 Spec Collection and Handling Fee 10:45:40 C DT CPT-85606 Visit 10:45:40 CDT
--- OUTSIDE RECORDS SUMMARY | 2020-01-04 23:42 | XMS REPORT | Clinical Summary ---
Author Author Admin, Giuliana Flores Organization [facility] Address Unknown Phone Unavailable [...] use disorder NEED FOR PROPHYLACTIC VACCINATION WITH JGYHDPU-HQYTP-S UBELLA (MMR) VACCINE V06.4 Resolved Cintia Pagan APRN Need for prophylactic vaccination with fnnbbji-xnxzj-jeynwha [MMR] vaccine Contraceptive management V25.9 Resolved Taiwo [...] gestation of V28.9 Inactive 2017 Nayeli Duke MACHINE LOADER Encounter for unspecified scre ening of mother [...] weeks gestation of V28.9 Inactive 2017 Nayeli Creighton MACHINE LOADER Encounter for unspecified scre ening of mother [...] MD care, delayed ICD-V23.7 Inactive Kristin Pagan MACHINE LOADER NEED FOR PROPHYLACTIC VACCINATION WITH KAFTUTX-ADSOH-J UBELLA (MMR) VACCINE ICD-V06.4 Inactive Cintia Pagan MACHINE LOADER Contraceptive management ICD-V25.9 Inactive Dionne Stewart MD follow-up, routine ICD-V24.2 Inacti ve Dionne Stewart MD Abnormal biochemical finding on screening ICD-796.5 Inactive Dionne Stewart MD Sinusitis, acute frontal ICD-461.1 Inactive Dionne Stewart MD GDM, diet controlled ICD-648.80 Inactive Dionne Stewart MD 29 weeks gestation of ICD-V28.9 Inac catalina Duke MACHINE LOADER Gestation period greater than or equal to 37 weeks ICD-765.29 Inactive Dionne Stewart MD Medication List Medication Instructions Start Date Stop Date Generic Name NDC Status Provider Patient Instruction CONCEPT DHA 53.5-38-1 MG ORAL CAPSULE one tab PO daily PFGBHA-UZJJC-NTJJ-FA-OMEGA 3 [id number] No Longer Active Dionne Stewart MD Active LORATADINE 10 MG ORAL TABLET 1 tablet by mouth daily 2 LORATADINE 20692312826 No Longer Active Dionne Stewart MD Active FERROUS SULFATE 325 (65 FE) MG ORAL TABLET 1 tablet daily 5 FERROUS SULFATE 64324092071 No Longer Active Dionne Stewart MD Acti ve LANCETS Test blood sugars as directed for gestational DM O24.420 LANCETS 93831954240 No Longer Active Dionne Stewart MD A ctive TRUE METRIX GO GLUCOSE METER W/DEVICE KIT Check blood sugars as directed BLOOD GLUCOSE MONITORING SUPPL 67314180629 N o Longer Active Dionne Stewart MD Active TRUE METRIX BLOOD GLUCOSE TEST IN VITRO STRIP Check bl ood sugars four times a day as directed for gestational DM; O24.420 GLUC OSE BLOOD 88520496715 No Longer Active Dionne Stewart MD Active PROMETHAZINE HCL 12.5 MG ORAL TABLET 1 tablet by mouth every 4 hours as needed for nausea/vomiting PROMETHAZINE HCL 26604609612 No L onger Active Dionne Stewart MD Active DIFLUCAN 150 MG ORAL TABLET 1 tablet by mouth daily 10/07/30 FLUCONAZOLE 20982924693 No Longer Active Billie Active ACYCLOVIR 400 MG ORAL TABLET One tab PO BID until delivery 06/23 ACYCLOVIR 38628790431 No Longer Active Dionne Stewart MD A ctive SKLICE 0.5 % EXTERNAL LOTION Apply 4oz to dry hair and rinse of after 10 minutes IVERMECTIN 28110133165 No Longer Active Carrol a Active AUGMENTIN 875-125 MG ORAL TABLET 1 po BID x 10 days 09/06/11 AMOXICILLIN-POT CLAVULANATE 67434556870 No Longer Active Rosalina Sell MACHINE LOADER Active TYLENOL PM EXTRA STRENGTH 500-25 MG ORAL TABLET PRN 12/31 DIPHENHYDRAMINE-APAP (SLEEP) 46089581624 No Longer Active Dionne Stewart MD Active FLAGYL 500 MG ORAL TABLET 1 tablet PO BID for 7 days 2 METRONIDAZOLE 42111176203 No Longer Active Dionne Stewart MD Active EQL FORMULA 28-0.8 MG ORAL TABLET 1 tablet daily 1 VIT-FE FUMARATE-FA 71693203748 No Longer Active Dionne Stewart MD A ctive CONCEPT DHA 53.5-38-1 MG ORAL CAPSULE one tab PO daily HHXQPX-BEVRU-DEMJ-FA-OMEGA 3 23305547720 No Longer Active Dionne Stewart MD Active CYCLOBENZAPRINE HCL 10 MG ORAL TABLET 1 tablet by mout h three times daily as needed for muscle spasm/pain CYCLOBENZAPRINE HCL 56406458163 No Longer Active Dionne Stewart MD Active TRI-SPRINTEC 0.18/0.215/0.25 MG-35 MCG ORAL TABLET 1 po qd a s directed NORGESTIM-ETH ESTRAD TRIPHASIC 56406681396 N o Longer Active Dionne Stewart MD Active FLAGYL 250 MG ORAL TABLET One tablet three times a day METRONIDAZOLE 97156942807 No Longer Active Cintia Yokum MACHINE LOADER Active [facility] 28-0.8 MG ORAL TABLET 04/10 VIT-FE FUMARATE-FA 31044264214 No Longer Active Dionne Stewart MD Active [facility] 28-0.8 MG ORAL TABLET 04/10 [facility] 28-0.8 MG ORAL TABLET VIT-FE FUMARATE-FA Inactive TRI-SPRINTEC 0.18/0.215/0.25 MG-35 MCG ORAL TABLET 1 po qd a s directed TRI-SPRINTEC 0.18/0.215/0.25 MG-35 MCG ORAL TABL ET 871169 NORGESTIM-ETH ESTRAD TRIPHASIC Inactive CYCLOBENZAPRINE HCL 10 MG ORAL TABLET 1 tablet by mout h three times daily as needed for muscle spasm/pain CYCLOBENZAP RINE HCL 10 MG ORAL TABLET 410555 CYCLOBENZAPRINE HCL Inactive CONCEPT DHA 53.5-38-1 MG ORAL CAPSULE one tab PO daily CONCEPT DHA 53.5-38-1 MG ORAL CAPSULE NDDETP-KOIBA-YYTH-FA-O BILLIE 3 Inactive FLAGYL 500 MG ORAL TABLET 1 tablet PO BID for 7 days 2 FLAGYL 500 MG ORAL TABLET 203570 METRONIDAZOLE Inactive TYLENOL PM EXTRA STRENGTH 500-25 MG ORAL TABLET PRN 12/31 TYLENOL PM EXTRA STRENGTH 500-25 MG ORAL TABLET 5585016 DIPHEN HYDRAMINE-APAP (SLEEP) Inactive SKLICE 0.5 % EXTERNAL LOTION Apply 4oz to dry hair and rinse of after 10 minutes SKLICE 0.5 % EXTERNAL LOTION IVERMEC TIN Inactive DIFLUCAN 150 MG ORAL TABLET 1 tablet by mouth daily 10/07/30 DIFLUCAN 150 MG ORAL TABLET 573897 FLUCONAZOLE Inactive PROMETHAZINE HCL 12.5 MG ORAL TABLET 1 tablet by mouth every 4 hours as needed for nausea/vomiting PROMETHAZINE HCL 12.5 MG ORA L TABLET 611569 PROMETHAZINE HCL Inactive TRUE METRIX BLOOD GLUCOSE [...] as directed for gestational DM O24.420 LANCETS 95112932462 LANCETS Inactive FERROUS SULFATE 325 (65 FE) MG ORAL TABLET 1 tablet daily 5 FERROUS SULFATE 325 (65 FE) MG ORAL TABLET 189904 FERROUS SULFATE Inactive LORATADINE 10 MG ORAL TABLET 1 tablet by mouth daily 2 LORATADINE 10 MG ORAL TABLET 343536 LORATADINE Inactive CONCEPT DHA 53.5-38-1 MG ORAL CAPSULE one tab PO daily CONCEPT DHA 53.5-38-1 MG ORAL CAPSULE KWXOGG-CJZFT-PTIU-FA-O BILLIE 3 Inactive FLAGYL 250 MG ORAL TABLET One tablet three times a day FLAGYL 250 MG ORAL TABLET 599512 METRONIDAZOLE Inactive AUGMENTIN 875-125 MG ORAL TABLET 1 po BID x 10 days 09/06/11 AUGMENTIN 875-125 MG ORAL TABLET 457046 AMOXICILLIN-POT CLAVULANATE Inactive ACYCLOVIR 400 MG ORAL TABLET One tab PO BID until delivery 06/23 ACYCLOVIR 400 MG ORAL TABLET 227475 ACYCLOVIR Britt ctive Immunizations Vaccine Administration Date [...] RBCW/REFL I, CBC (INCL ... - Hematology erythrocyte (RBC) count 3.93 MILLION/UL 10*6/mm3 3.80-5. 10 leukocyte count, blood 8.6 THOUSAND/UL 10*3/mm3 3.8-10.8 Blood type O hemoglobin, blood 12.3 g/dL 11.7-15.5 hematocrit, blood 36.8 % 35.0-45.0 mean corpuscular volume, RBC 93.6 fL 80.0-10 0.0 mean corpuscular hemoglobin, RBC 31.3 pg 27. 0-33.0 mean corpuscular hemoglobin concentration, RBC 33.4 G/DL % 32.0-36.0 red blood cell distribution width 12.3 % 11 .0-15.0 platelet count 226 THOUSAND/UL 10*3/mm3 780-643 4472/05/11 mean platelet volume 10.3 fL 7.5-12.5 Lab [...] SCREEN, RBCW/REFL I , Drug Abuse Pnl 10-50/45555 - Blood bank antibody screen, serum NO ANTIBODIES DETECTED Lab Report: CBC, [id number] Gluc cari-1spec - Hematology hematocrit, blood 31.1 % 37.0-47.0 mean corpuscular volume, RBC 94 fL 80-97 mean corpuscular hemoglobin, RBC 31.9 pg 27. 0-31.2 leukocyte count, blood 10.2 10^3/MM^3 10*3/mm3 4.6-10.2 mean corpuscular hemoglobin concentration, RBC 33.9 G/DL % 31.8-35.4 red blood cell distribution width 11.1 % 13 .0-18.0 platelet count 201 10^3/MM^3 10*3/mm3 216-100 8256/09/21 erythrocyte (RBC) count 3.30 10^6/MM^3 10*6/mm3 3.80-5.8 0 hemoglobin, blood 10.5 g/dL 12.0-16.0 Lab Report: Chlamydia/GC APTIMA/55510, H EPATITIS B S AG W/, HIV-1/2 Agn/ ... - Chemistry hepatitis B surface antigen NON-REACTIVE NON-RE ACTIVE rapid plasma reagin antibody titer NON-REACTIVE NON-REACTIVE Lab Report: Chlamydia/GC APTIMA/15870, H EPATITIS B S AG W/, HIV-1/2 Agn/ ... - Lab chlamydia DNA probe NOT DETECTED NOT DETECTED Lab Report: Chlamydia/GC APTIMA/49018, H EPATITIS B S AG W/, HIV-1/2 Agn/ ... - Microbiology Neisseria gonorrhoeae DNA probe NOT DETECTED NO T DETECTED Lab Report: OBGTT3 - Chemistry blood glucose [...] pH, urine, semiquantitative 7.0 5.0-8.5 Lab Report: [facility] [place] - Chemistry human chorionic gonadotropin , urine, [...] N Encounters Code Encounter Date Provider Facility CPT-25070 Level 3 Est. Patient 14:03:17 CDT Dionne bey MD [facility] CPT-89810 Level 4 Est. Patient 15:39:57 CDT Nayeli herrera [facility] CPT-17101 Level 3 Est. Patient 17:26:51 CDT [facility]erg [facility] CPT-69350 Level 3 Est. Patient 17:31:05 RN MEDICARE Cintia sommer [facility] Procedures Code Procedure Name Date Entry Date Standard Desc ription CPT-61151 Visit 10:15:43 RN MEDICARE CPT-27822 Visit 13:02:58 RN MEDICARE CPT-10662 Visit 12:11:18 RN MEDICARE CPT-14736 Visit 10:38:39 CDT CPT-23670 Visit 08:28:55 CDT CPT-98283 Addl Vx - Ix admin via ID IM or jet injects without counseling by physician 18:18:11 CDT CPT-27089 Boostrix Intramuscular Suspension 5-2.5-18.5 201 04/01/05 18:18:11 CDT CPT-56092 First Vx - Ix admin via ID I M or jet injects without counseling by physician 18:18:11 CDT CPT-33545 Flulaval Intramuscular Injectable 18:18:11 CDT CPT-11405 Fluzone Thim Free 36mo and older 11:16:54 C DT CPT-33581 Tdap 7yrs or > 11:16:53 CDT CPT-67230 Visit 11:16:53 CDT CPT-09480 Visit 11:14:16 CDT CPT-92245 Visit 10:54:00 CDT CPT-10008 Visit 16:24:31 CDT CPT-06999 Sono OB comp > 14 weeks - XRAY USE ONLY 12:01:14 CDT CPT-42631 Visit 15:58:08 CDT CPT-11664 Visit 12:16:56 CDT CPT-73252Y Sono OB comp <14 weeks ([place] Only) - X RAY USE ONLY 12:09:02 CDT CPT-33104 Spec Collection and Handling Fee 10:11:50 C DT CPT-35918 Visit 10:11:49 CDT CPT-J1050 Depo Provera 150 mg (Medroxyprogesterone) 08/30 16:06:30 RN MEDICARE CPT-23900 Abx/Therapy Injection 16:06:30 RN MEDICARE CPT-J1050 Depo Provera 150 mg (Medroxyprogesterone) 08/30 15:39:17 RN MEDICARE CPT-45802 Visit 15:01:38 CDT CPT-56747 Sono OB comp > 14 weeks 16:05:04 CDT 03/18 CPT-67853 Spec Collection and Handling Fee 10:45:40 C DT CPT-00072 Visit 10:45:40 CDT
--- OUTSIDE RECORDS SUMMARY | 2020-01-04 23:42 | XMS REPORT | Clinical Summary ---
Author Author Admin, Giuliana Flores Organization [facility] Address Unknown Phone Unavailable Allergies, Adverse [...] use disorder NEED FOR PROPHYLACTIC VACCINATION WITH ZBHBMKN-GASAW-C UBELLA (MMR) VACCINE V06.4 Resolved Cintia Pagan APRN Need for prophylactic vaccination with fomlujs-frcsc-utlhhlw [MMR] vaccine Contraceptive management V25.9 Resolved Taiwo [...] gestation of V28.9 Inactive 2017 Nayeli Duke POLITICAL THEORY PROFESSOR Encounter for unspecified scre ening of mother [...] gestation of V28.9 Inactive 2017 Nayeli Duke POLITICAL THEORY PROFESSOR Encounter for unspecified scre ening of mother [...] MD care, delayed ICD-V23.7 Inactive Kristin Pagan POLITICAL THEORY PROFESSOR NEED FOR PROPHYLACTIC VACCINATION WITH DFULXXD-HUQWQ-S UBELLA (MMR) VACCINE ICD-V06.4 Inactive Cintia Pagan POLITICAL THEORY PROFESSOR Contraceptive management ICD-V25.9 Inactive Dionne Stewart MD follow-up, routine ICD-V24.2 Inacti ve Dionne Stewart MD 29 weeks gestation of ICD-V28.9 Inac tive Nayeli Duke POLITICAL THEORY PROFESSOR Abnormal biochemical finding on screening ICD-796.5 Inactive [...] MG ORAL CAPSULE one tab PO daily ABEEFB-DBAEX-FCMU-FA-OMEGA 3 93889413170 No Longer Active Dionne Stewart MD Active LORATADINE 10 MG ORAL TABLET 1 tablet by mouth daily 2 LORATADINE 25599036625 No Longer Active Dionne Stewart MD Active FERROUS SULFATE 325 (65 FE) MG ORAL TABLET 1 tablet daily 5 FERROUS SULFATE 37543279735 No Longer Active Dionne Stewart MD Acti ve LANCETS Test blood sugars as directed for gestational DM O24.420 LANCETS 78674546420 No Longer Active Dionne Stewart MD A ctive TRUE METRIX GO GLUCOSE METER W/DEVICE KIT Check blood sugars as directed BLOOD GLUCOSE MONITORING SUPPL 89688318478 N o Longer Active Dionne Stewart MD Active TRUE METRIX BLOOD GLUCOSE TEST IN VITRO STRIP Check bl ood sugars four times a day as directed for gestational DM; O24.420 GLUC OSE BLOOD 82671677528 No Longer Active Dionne Stewart MD Active PROMETHAZINE HCL 12.5 MG ORAL TABLET 1 tablet by mouth every 4 hours as needed for nausea/vomiting PROMETHAZINE HCL 81719648222 No L onger Active Dionne Stewart MD Active DIFLUCAN 150 MG ORAL TABLET 1 tablet by mouth daily 10/07/30 FLUCONAZOLE 13390808880 No Longer Active Billie Active ACYCLOVIR 400 MG ORAL TABLET One tab PO BID until delivery 06/23 ACYCLOVIR 75608556033 No Longer Active Dionne Stewart MD A ctive SKLICE 0.5 % EXTERNAL LOTION Apply 4oz to dry hair and rinse of after 10 minutes IVERMECTIN 09560814327 No Longer Active Carrol a Active AUGMENTIN 875-125 MG ORAL TABLET 1 po BID x 10 days 09/06/11 AMOXICILLIN-POT CLAVULANATE 65149160398 No Longer Active Rosalina Sell POLITICAL THEORY PROFESSOR Active TYLENOL PM EXTRA STRENGTH 500-25 MG ORAL TABLET PRN 12/31 DIPHENHYDRAMINE-APAP (SLEEP) 93938005203 No Longer Active Dionne Stewart MD Active FLAGYL 500 MG ORAL TABLET 1 tablet PO BID for 7 days 2 METRONIDAZOLE 67436426500 No Longer Active Dionne Stewart MD Active EQL FORMULA 28-0.8 MG ORAL TABLET 1 tablet daily 1 VIT-FE FUMARATE-FA 93034454934 No Longer Active Dionne Stewart MD A ctive CONCEPT DHA 53.5-38-1 MG ORAL CAPSULE one tab PO daily NRDINT-BTORH-WMMD-FA-OMEGA 3 71445533973 No Longer Active Dionne Stewart MD Active CYCLOBENZAPRINE HCL 10 MG ORAL TABLET 1 tablet by mout h three times daily as needed for muscle spasm/pain CYCLOBENZAPRINE HCL 37678919839 No Longer Active Dionne Stewart MD Active TRI-SPRINTEC 0.18/0.215/0.25 MG-35 MCG ORAL TABLET 1 po qd a s directed NORGESTIM-ETH ESTRAD TRIPHASIC 05229775623 N o Longer Active Dionne Stewart MD Active FLAGYL 250 MG ORAL TABLET One tablet three times a day METRONIDAZOLE 16821187656 No Longer Active Cintia Yokum POLITICAL THEORY PROFESSOR Active [facility] 28-0.8 MG ORAL TABLET 04/10 VIT-FE FUMARATE-FA 67591779699 No Longer Active Dionne Stewart MD Active [facility] 28-0.8 MG ORAL TABLET 04/10 [facility] 28-0.8 MG ORAL TABLET VIT-FE FUMARATE-FA Inactive TRI-SPRINTEC 0.18/0.215/0.25 MG-35 MCG ORAL TABLET 1 po qd a s directed TRI-SPRINTEC 0.18/0.215/0.25 MG-35 MCG ORAL TABL ET 936303 NORGESTIM-ETH ESTRAD TRIPHASIC Inactive CYCLOBENZAPRINE HCL 10 MG ORAL TABLET 1 tablet by mout h three times daily as needed for muscle spasm/pain CYCLOBENZAP RINE HCL 10 MG ORAL TABLET 744960 CYCLOBENZAPRINE HCL Inactive CONCEPT DHA 53.5-38-1 MG ORAL CAPSULE one tab PO daily CONCEPT DHA 53.5-38-1 MG ORAL CAPSULE KOSELA-AXOKH-GIVB-FA-O BILLIE 3 Inactive FLAGYL 500 MG ORAL TABLET 1 tablet PO BID for 7 days 2 FLAGYL 500 MG ORAL TABLET 882913 METRONIDAZOLE Inactive TYLENOL PM EXTRA STRENGTH 500-25 MG ORAL TABLET PRN 12/31 TYLENOL PM EXTRA STRENGTH 500-25 MG ORAL TABLET 0730916 DIPHEN HYDRAMINE-APAP (SLEEP) Inactive SKLICE 0.5 % EXTERNAL LOTION Apply 4oz to dry hair and rinse of after 10 minutes SKLICE 0.5 % EXTERNAL LOTION IVERMEC TIN Inactive DIFLUCAN 150 MG ORAL TABLET 1 tablet by mouth daily 10/07/30 DIFLUCAN 150 MG ORAL TABLET 670783 FLUCONAZOLE Inactive PROMETHAZINE HCL 12.5 MG ORAL TABLET 1 tablet by mouth every 4 hours as needed for nausea/vomiting PROMETHAZINE HCL 12.5 MG ORA L TABLET 866919 PROMETHAZINE HCL Inactive TRUE METRIX BLOOD GLUCOSE [...] as directed for gestational DM O24.420 LANCETS 91727401283 LANCETS Inactive FERROUS SULFATE 325 (65 FE) MG ORAL TABLET 1 tablet daily 5 FERROUS SULFATE 325 (65 FE) MG ORAL TABLET 730742 FERROUS SULFATE Inactive LORATADINE 10 MG ORAL TABLET 1 tablet by mouth daily 2 LORATADINE 10 MG ORAL TABLET 812261 LORATADINE Inactive CONCEPT DHA 53.5-38-1 MG ORAL CAPSULE one tab PO daily CONCEPT DHA 53.5-38-1 MG ORAL CAPSULE PUPFHJ-AGEXR-NSSL-FA-O BILLIE 3 Inactive FLAGYL 250 MG ORAL TABLET One tablet three times a day FLAGYL 250 MG ORAL TABLET 500531 METRONIDAZOLE Inactive AUGMENTIN 875-125 MG ORAL TABLET 1 po BID x 10 days 09/06/11 AUGMENTIN 875-125 MG ORAL TABLET 240775 AMOXICILLIN-POT CLAVULANATE Inactive ACYCLOVIR 400 MG ORAL TABLET One tab PO BID until delivery 06/23 ACYCLOVIR 400 MG ORAL TABLET 360270 ACYCLOVIR Britt ctive Immunizations Vaccine Administration Date [...] 11 .0-15.0 platelet count 226 THOUSAND/UL 10*3/mm3 920-986 4540/05/11 mean platelet volume 10.3 fL 7.5-12.5 Blood [...] SCREEN, RBCW/REFL I , Drug Abuse Pnl 10-50/24686 - Blood bank antibody screen, serum NO ANTIBODIES DETECTED Lab Report: CBC, [id number] Gluc cari-1spec - Hematology leukocyte count, blood [...] 201 10^3/MM^3 10*3/mm3 142-424 Lab Report: Chlamydia/GC APTIMA/19561 - Lab chlamydia DNA probe NOT DETECTED NOT DETECTED Lab Report: Chlamydia/GC APTIMA/86875 - Microbiology Neisseria gonorrhoeae DNA probe NOT DETECTED NO T DETECTED Lab Report: Chlamydia/GC APTIMA/75568, H EPATITIS B S AG W/, HIV-1/2 Agn/ ... - Chemistry hepatitis B surface antigen NON-REACTIVE NON-RE ACTIVE rapid plasma reagin antibody titer NON-REACTIVE NON-REACTIVE Lab Report: Chlamydia/GC APTIMA/22037, H EPATITIS B S AG W/, HIV-1/2 Agn/ ... - Lab chlamydia DNA probe NOT DETECTED NOT DETECTED Lab Report: Chlamydia/GC APTIMA/27957, H EPATITIS B S AG W/, HIV-1/2 Agn/ ... - Microbiology Neisseria gonorrhoeae DNA probe NOT DETECTED NO T DETECTED Lab Report: HEPATITIS B S AG W/, HIV-1/2 Agn/Mikaela/87070, RPR (DX) W/REFL ... - Chemistry hepatitis [...] pH, urine, semiquantitative 7.0 5.0-8.5 [place] Report[place] [facility] [place] human chorionic gonadotropin , urine, [...] N Encounters Code Encounter Date Provider Facility CPT-05043 Level 3 Est. Patient 14:03:17 CDT Dionne bey MD [facility] CPT-94700 Level 4 Est. Patient 15:39:57 CDT Nayeli herrera APRN [facility] CPT-95160 Level 3 Est. Patient 17:26:51 CDT Rosalina berg [facility] CPT-37510 Level 3 Est. Patient 17:31:05 INSURANCE CHECKER Cintia sommer [facility] Procedures Code Procedure Name Date Entry Date Standard Desc ription CPT-69321 Visit 10:15:43 INSURANCE CHECKER CPT-53217 Visit 13:02:58 INSURANCE CHECKER CPT-37998 Visit 12:11:18 INSURANCE CHECKER CPT-38474 Visit 10:38:39 CDT CPT-73942 Visit 08:28:55 CDT CPT-90909 Addl Vx - Ix admin via ID IM or jet injects without counseling by physician 18:18:11 CDT CPT-30657 Boostrix Intramuscular Suspension 5-2.5-18.5 201 04/01/05 18:18:11 CDT CPT-97848 First Vx - Ix admin via ID I M or jet injects without counseling by physician 18:18:11 CDT CPT-26392 Flulaval Intramuscular Injectable 18:18:11 CDT CPT-17382 Fluzone Thim Free 36mo and older 11:16:54 C DT CPT-19413 Tdap 7yrs or > 11:16:53 CDT CPT-76239 Visit 11:16:53 CDT CPT-33892 Visit 11:14:16 CDT CPT-31149 Visit 10:54:00 CDT CPT-89634 Visit 16:24:31 CDT CPT-52819 Sono OB comp > 14 weeks - XRAY USE ONLY 12:01:14 CDT CPT-13259 Visit 15:58:08 CDT CPT-18324 Visit 12:16:56 CDT CPT-51171S Sono OB comp <14 weeks ([place] Only) - X RAY USE ONLY 12:09:02 CDT CPT-52549 Spec Collection and Handling Fee 10:11:50 C DT CPT-01771 Visit 10:11:49 CDT CPT-J1050 Depo Provera 150 mg (Medroxyprogesterone) 08/30 16:06:30 INSURANCE CHECKER CPT-32363 Abx/Therapy Injection 16:06:30 INSURANCE CHECKER CPT-J1050 Depo Provera 150 mg (Medroxyprogesterone) 08/30 15:39:17 INSURANCE CHECKER CPT-75775 Visit 15:01:38 CDT CPT-01714 Sono OB comp > 14 weeks 16:05:04 CDT 03/18 CPT-22606 Spec Collection and Handling Fee 10:45:40 C DT CPT-64693 Visit 10:45:40 CDT
--- OUTSIDE RECORDS SUMMARY | 2020-01-04 23:43 | XMS REPORT | Clinical Summary ---
Author Author Admin, Giuliana Flores Organization [facility] Address Unknown Phone Unavailable Allergies, Adverse Reactions, [...] use disorder NEED FOR PROPHYLACTIC VACCINATION WITH TCEPPBW-RLNES-U UBELLA (MMR) VACCINE V06.4 Resolved Cintia Pagan APRN Need for prophylactic vaccination with cnntfhf-beawr-iblosuh [MMR] vaccine Contraceptive management V25.9 Resolved Taiwo [...] gestation of V28.9 Inactive 2017 Nayeli Duke LIVE IN CAREGIVER Encounter for unspecified scre ening of mother [...] gestation of V28.9 Inactive 2017 Nayeli Duke LIVE IN CAREGIVER Encounter for unspecified scre ening of mother [...] MD care, delayed ICD-V23.7 Inactive Kristin Pagan LIVE IN CAREGIVER NEED FOR PROPHYLACTIC VACCINATION WITH VSOEHEY-CYZNM-A UBELLA (MMR) VACCINE ICD-V06.4 Inactive Cintia Pagan LIVE IN CAREGIVER Contraceptive management ICD-V25.9 Inactive Dionne Stewart MD follow-up, routine ICD-V24.2 Inacti ve Dionne Stewart MD 29 weeks gestation of ICD-V28.9 Inac tive Nayeli Duke LIVE IN CAREGIVER Abnormal biochemical finding on screening ICD-796.5 Inactive [...] MG ORAL CAPSULE one tab PO daily HUTYJT-JQUOU-HSGJ-FA-OMEGA 3 [id number] No Longer Active Dionne Stewart MD Active LORATADINE 10 MG ORAL TABLET 1 tablet by mouth daily 2 LORATADINE 66283156191 No Longer Active Dionne Stewart MD Active FERROUS SULFATE 325 (65 FE) MG ORAL TABLET 1 tablet daily 5 FERROUS SULFATE 45222810529 No Longer Active Dionne Stewart MD Acti ve LANCETS Test blood sugars as directed for gestational DM O24.420 LANCETS 48062468480 No Longer Active Dionne Stewart MD A ctive TRUE METRIX GO GLUCOSE METER W/DEVICE KIT Check blood sugars as directed BLOOD GLUCOSE MONITORING SUPPL 98240420772 N o Longer Active Dionne Stewart MD Active TRUE METRIX BLOOD GLUCOSE TEST IN VITRO STRIP Check bl ood sugars four times a day as directed for gestational DM; O24.420 GLUC OSE BLOOD 56959227114 No Longer Active Dionne Stewart MD Active PROMETHAZINE HCL 12.5 MG ORAL TABLET 1 tablet by mouth every 4 hours as needed for nausea/vomiting PROMETHAZINE HCL 99982447678 No L onger Active Dionne Stewart MD Active DIFLUCAN 150 MG ORAL TABLET 1 tablet by mouth daily 10/07/30 FLUCONAZOLE 31447691616 No Longer Active Billie Active ACYCLOVIR 400 MG ORAL TABLET One tab PO BID until delivery 06/23 ACYCLOVIR 83132642733 No Longer Active Dionne Stewart MD A ctive SKLICE 0.5 % EXTERNAL LOTION Apply 4oz to dry hair and rinse of after 10 minutes IVERMECTIN 67794629512 No Longer Active Carrol a Active AUGMENTIN 875-125 MG ORAL TABLET 1 po BID x 10 days 09/06/11 AMOXICILLIN-POT CLAVULANATE 14957512928 No Longer Active Rosalina Sell LIVE IN CAREGIVER Active TYLENOL PM EXTRA STRENGTH 500-25 MG ORAL TABLET PRN 12/31 DIPHENHYDRAMINE-APAP (SLEEP) 98105556255 No Longer Active Dionne Stewart MD Active FLAGYL 500 MG ORAL TABLET 1 tablet PO BID for 7 days 2 METRONIDAZOLE 41385297465 No Longer Active Dionne Stewart MD Active EQL FORMULA 28-0.8 MG ORAL TABLET 1 tablet daily 1 VIT-FE FUMARATE-FA 83684436328 No Longer Active Dionne Stewart MD A ctive CONCEPT DHA 53.5-38-1 MG ORAL CAPSULE one tab PO daily KKJHXY-OENVE-XTWJ-FA-OMEGA 3 40733819176 No Longer Active Dionne Stewart MD Active CYCLOBENZAPRINE HCL 10 MG ORAL TABLET 1 tablet by mout h three times daily as needed for muscle spasm/pain CYCLOBENZAPRINE HCL 97441901082 No Longer Active Dionne Stewart MD Active TRI-SPRINTEC 0.18/0.215/0.25 MG-35 MCG ORAL TABLET 1 po qd a s directed NORGESTIM-ETH ESTRAD TRIPHASIC 10649734724 N o Longer Active Dionne Stewart MD Active FLAGYL 250 MG ORAL TABLET One tablet three times a day METRONIDAZOLE 90253799499 No Longer Active Cintia Yokum LIVE IN CAREGIVER Active [facility] 28-0.8 MG ORAL TABLET 04/10 VIT-FE FUMARATE-FA 09374297034 No Longer Active Dionne Stewart MD Active [facility] 28-0.8 MG ORAL TABLET 04/10 [facility] 28-0.8 MG ORAL TABLET VIT-FE FUMARATE-FA Inactive TRI-SPRINTEC 0.18/0.215/0.25 MG-35 MCG ORAL TABLET 1 po qd a s directed TRI-SPRINTEC 0.18/0.215/0.25 MG-35 MCG ORAL TABL ET 317508 NORGESTIM-ETH ESTRAD TRIPHASIC Inactive CYCLOBENZAPRINE HCL 10 MG ORAL TABLET 1 tablet by mout h three times daily as needed for muscle spasm/pain CYCLOBENZAP RINE HCL 10 MG ORAL TABLET 253461 CYCLOBENZAPRINE HCL Inactive CONCEPT DHA 53.5-38-1 MG ORAL CAPSULE one tab PO daily CONCEPT DHA 53.5-38-1 MG ORAL CAPSULE LSDDMT-IXODY-RSXI-FA-O BILLIE 3 Inactive FLAGYL 500 MG ORAL TABLET 1 tablet PO BID for 7 days 2 FLAGYL 500 MG ORAL TABLET 813906 METRONIDAZOLE Inactive TYLENOL PM EXTRA STRENGTH 500-25 MG ORAL TABLET PRN 12/31 TYLENOL PM EXTRA STRENGTH 500-25 MG ORAL TABLET 0076304 DIPHEN HYDRAMINE-APAP (SLEEP) Inactive SKLICE 0.5 % EXTERNAL LOTION Apply 4oz to dry hair and rinse of after 10 minutes SKLICE 0.5 % EXTERNAL LOTION IVERMEC TIN Inactive DIFLUCAN 150 MG ORAL TABLET 1 tablet by mouth daily 10/07/30 DIFLUCAN 150 MG ORAL TABLET 102642 FLUCONAZOLE Inactive PROMETHAZINE HCL 12.5 MG ORAL TABLET 1 tablet by mouth every 4 hours as needed for nausea/vomiting PROMETHAZINE HCL 12.5 MG ORA L TABLET 647637 PROMETHAZINE HCL Inactive TRUE METRIX BLOOD GLUCOSE [...] as directed for gestational DM O24.420 LANCETS 78169919776 LANCETS Inactive FERROUS SULFATE 325 (65 FE) MG ORAL TABLET 1 tablet daily 5 FERROUS SULFATE 325 (65 FE) MG ORAL TABLET 614202 FERROUS SULFATE Inactive LORATADINE 10 MG ORAL TABLET 1 tablet by mouth daily 2 LORATADINE 10 MG ORAL TABLET 368612 LORATADINE Inactive CONCEPT DHA 53.5-38-1 MG ORAL CAPSULE one tab PO daily CONCEPT DHA 53.5-38-1 MG ORAL CAPSULE XNPWGE-FTACN-WSLI-FA-O BILLIE 3 Inactive FLAGYL 250 MG ORAL TABLET One tablet three times a day FLAGYL 250 MG ORAL TABLET 901724 METRONIDAZOLE Inactive AUGMENTIN 875-125 MG ORAL TABLET 1 po BID x 10 days 09/06/11 AUGMENTIN 875-125 MG ORAL TABLET 836593 AMOXICILLIN-POT CLAVULANATE Inactive ACYCLOVIR 400 MG ORAL TABLET One tab PO BID until delivery 06/23 ACYCLOVIR 400 MG ORAL TABLET 350079 ACYCLOVIR Britt ctive Immunizations Vaccine Administration Date [...] 11 .0-15.0 platelet count 226 THOUSAND/UL 10*3/mm3 229-145 1290/05/11 mean platelet volume 10.3 fL 7.5-12.5 Blood [...] SCREEN, RBCW/REFL I , Drug Abuse Pnl 10-50/85766 - Blood bank antibody screen, serum NO ANTIBODIES DETECTED Lab Report: CBC, [id number] Gluc cari-1spec - Hematology leukocyte count, blood [...] 201 10^3/MM^3 10*3/mm3 142-424 Lab Report: Chlamydia/GC APTIMA/38921, H EPATITIS B S AG W/, HIV-1/2 Agn/ ... - Chemistry hepatitis B surface antigen NON-REACTIVE NON-RE ACTIVE rapid plasma reagin antibody titer NON-REACTIVE NON-REACTIVE Lab Report: Chlamydia/GC APTIMA/24968, H EPATITIS B S AG W/, HIV-1/2 Agn/ ... - Lab chlamydia DNA probe NOT DETECTED NOT DETECTED Lab Report: Chlamydia/GC APTIMA/31029, H EPATITIS B S AG W/, HIV-1/2 [...] semiquantitative 8.5 5.0-8.5 Lab Report: UADIP W/MICRO, AUTO, Wet [...] pH, urine, semiquantitative 7.0 5.0-8.5 Lab Report: [facility] [place] - Chemistry human chorionic gonadotropin , urine, [...] N Encounters Code Encounter Date Provider Facility CPT-55314 Level 3 Est. Patient 14:03:17 CDT Dionne bey MD [facility] CPT-28039 Level 4 Est. Patient 15:39:57 CDT Nayeli herrera [facility] CPT-80305 Level 3 Est. Patient 17:26:51 CDT Rosalina berg [facility] CPT-90805 Level 3 Est. Patient 17:31:05 FACILITIES ENGINEERING MANAGER Cintia sommer [facility] Procedures Code Procedure Name Date Entry Date Standard Desc ription CPT-88557 Visit 10:15:43 FACILITIES ENGINEERING MANAGER CPT-81002 Visit 13:02:58 FACILITIES ENGINEERING MANAGER CPT-45151 Visit 12:11:18 FACILITIES ENGINEERING MANAGER CPT-37414 Visit 10:38:39 CDT CPT-01653 Visit 08:28:55 CDT CPT-71069 Addl Vx - Ix admin via ID IM or jet injects without counseling by physician 18:18:11 CDT CPT-37209 Boostrix Intramuscular Suspension 5-2.5-18.5 201 04/01/05 18:18:11 CDT CPT-54211 First Vx - Ix admin via ID I M or jet injects without counseling by physician 18:18:11 CDT CPT-26228 Flulaval Intramuscular Injectable 18:18:11 CDT CPT-40216 Fluzone Thim Free 36mo and older 11:16:54 C DT CPT-32538 Tdap 7yrs or > 11:16:53 CDT CPT-99841 Visit 11:16:53 CDT CPT-39838 Visit 11:14:16 CDT CPT-55133 Visit 10:54:00 CDT CPT-57968 Visit 16:24:31 CDT CPT-80148 Sono OB comp > 14 weeks - XRAY USE ONLY 12:01:14 CDT CPT-86092 Visit 15:58:08 CDT CPT-37195 Visit 12:16:56 CDT CPT-71058L Sono OB comp <14 weeks ([place] Only) - X RAY USE ONLY 12:09:02 CDT CPT-46894 Spec Collection and Handling Fee 10:11:50 C DT CPT-91794 Visit 10:11:49 CDT CPT-J1050 Depo Provera 150 mg (Medroxyprogesterone) 08/30 16:06:30 FACILITIES ENGINEERING MANAGER CPT-46386 Abx/Therapy Injection 16:06:30 FACILITIES ENGINEERING MANAGER CPT-J1050 Depo Provera 150 mg (Medroxyprogesterone) 08/30 15:39:17 FACILITIES ENGINEERING MANAGER CPT-15925 Visit 15:01:38 CDT CPT-70228 Sono OB comp > 14 weeks 16:05:04 CDT 03/18 CPT-04125 Spec Collection and Handling Fee 10:45:40 C DT CPT-32236 Visit 10:45:40 CDT
--- OUTSIDE RECORDS SUMMARY | 2020-01-04 23:43 | XMS REPORT | Clinical Summary ---
Author Author Admin, Giuliana Flores Organization [facility] Address Unknown Phone Unavailable Allergies, [...] use disorder NEED FOR PROPHYLACTIC VACCINATION WITH CDWNGOJ-CKIPN-G UBELLA (MMR) VACCINE V06.4 Resolved Cintia Pagan APRN Need for prophylactic vaccination with nyqlqox-apbci-vvlmzah [MMR] vaccine Contraceptive management V25.9 Resolved Taiwo [...] gestation of V28.9 Inactive 2017 Nayeli Duke LIVESTOCK JUDGING COACH Encounter for unspecified scre ening of mother [...] weeks gestation of V28.9 Inactive 2017 Nayeli [place] LIVESTOCK JUDGING COACH Encounter for unspecified scre ening of mother [...] MD care, delayed ICD-V23.7 Inactive Kristin Pagan LIVESTOCK JUDGING COACH NEED FOR PROPHYLACTIC VACCINATION WITH AOPNOVL-LHTCV-N UBELLA (MMR) VACCINE ICD-V06.4 Inactive Cintia Pagan LIVESTOCK JUDGING COACH Contraceptive management ICD-V25.9 Inactive Dionne Stewart MD follow-up, routine ICD-V24.2 Inacti ve Dionne Stewart MD 29 weeks gestation of ICD-V28.9 Inac tiflorentino Duke LIVESTOCK JUDGING COACH Abnormal biochemical finding on screening ICD-796.5 Inactive [...] MG ORAL CAPSULE one tab PO daily SAGVGY-HOUCH-TYNL-FA-OMEGA 3 97674506615 No Longer Active Dionne Stewart MD Active LORATADINE 10 MG ORAL TABLET 1 tablet by mouth daily 2 LORATADINE 74309494899 No Longer Active Dionne Stewart MD Active FERROUS SULFATE 325 (65 FE) MG ORAL TABLET 1 tablet daily 5 FERROUS SULFATE 29123545734 No Longer Active Dionne Stewart MD Acti ve LANCETS Test blood sugars as directed for gestational DM O24.420 LANCETS 12469162738 No Longer Active Dionne Stewart MD A ctive TRUE METRIX GO GLUCOSE METER W/DEVICE KIT Check blood sugars as directed BLOOD GLUCOSE MONITORING SUPPL 25041780703 N o Longer Active Dionne Stewart MD Active TRUE METRIX BLOOD GLUCOSE TEST IN VITRO STRIP Check bl ood sugars four times a day as directed for gestational DM; O24.420 GLUC OSE BLOOD 66652690024 No Longer Active Dionne Stewart MD Active PROMETHAZINE HCL 12.5 MG ORAL TABLET 1 tablet by mouth every 4 hours as needed for nausea/vomiting PROMETHAZINE HCL 35669943277 No L onger Active Dionne Stewart MD Active DIFLUCAN 150 MG ORAL TABLET 1 tablet by mouth daily 10/07/30 FLUCONAZOLE 36258788175 No Longer Active Billie Active ACYCLOVIR 400 MG ORAL TABLET One tab PO BID until delivery 06/23 ACYCLOVIR 07721785814 No Longer Active Dionne Stewart MD A ctive SKLICE 0.5 % EXTERNAL LOTION Apply 4oz to dry hair and rinse of after 10 minutes IVERMECTIN 29331789991 No Longer Active Carrol a Active AUGMENTIN 875-125 MG ORAL TABLET 1 po BID x 10 days 09/06/11 AMOXICILLIN-POT CLAVULANATE 56301230301 No Longer Active Rosalina Sell LIVESTOCK JUDGING COACH Active TYLENOL PM EXTRA STRENGTH 500-25 MG ORAL TABLET PRN 12/31 DIPHENHYDRAMINE-APAP (SLEEP) 74343877384 No Longer Active Dionne Stewart MD Active FLAGYL 500 MG ORAL TABLET 1 tablet PO BID for 7 days 2 METRONIDAZOLE 85435630250 No Longer Active Dionne Stewart MD Active EQL FORMULA 28-0.8 MG ORAL TABLET 1 tablet daily 1 VIT-FE FUMARATE-FA 16639366489 No Longer Active Dionne Stewart MD A ctive CONCEPT DHA 53.5-38-1 MG ORAL CAPSULE one tab PO daily GZXGBZ-ZBBCE-BBPF-FA-OMEGA 3 42654631220 No Longer Active Dionne Stewart MD Active CYCLOBENZAPRINE HCL 10 MG ORAL TABLET 1 tablet by mout h three times daily as needed for muscle spasm/pain CYCLOBENZAPRINE HCL 91221535779 No Longer Active Dionne Stewart MD Active TRI-SPRINTEC 0.18/0.215/0.25 MG-35 MCG ORAL TABLET 1 po qd a s directed NORGESTIM-ETH ESTRAD TRIPHASIC 48407420053 N o Longer Active Dionne Stewart MD Active FLAGYL 250 MG ORAL TABLET One tablet three times a day METRONIDAZOLE 48215187236 No Longer Active Cintia Yokum LIVESTOCK JUDGING COACH Active [facility] 28-0.8 MG ORAL TABLET 04/10 VIT-FE FUMARATE-FA 92068774208 No Longer Active Dionne Stewart MD Active [facility] 28-0.8 MG ORAL TABLET 04/10 [facility] 28-0.8 MG ORAL TABLET VIT-FE FUMARATE-FA Inactive TRI-SPRINTEC 0.18/0.215/0.25 MG-35 MCG ORAL TABLET 1 po qd a s directed TRI-SPRINTEC 0.18/0.215/0.25 MG-35 MCG ORAL TABL ET 948727 NORGESTIM-ETH ESTRAD TRIPHASIC Inactive CYCLOBENZAPRINE HCL 10 MG ORAL TABLET 1 tablet by mout h three times daily as needed for muscle spasm/pain CYCLOBENZAP RINE HCL 10 MG ORAL TABLET 886614 CYCLOBENZAPRINE HCL Inactive CONCEPT DHA 53.5-38-1 MG ORAL CAPSULE one tab PO daily CONCEPT DHA 53.5-38-1 MG ORAL CAPSULE PUZEDY-PEQLT-TMUL-FA-O BILLIE 3 Inactive FLAGYL 500 MG ORAL TABLET 1 tablet PO BID for 7 days 2 FLAGYL 500 MG ORAL TABLET 918941 METRONIDAZOLE Inactive TYLENOL PM EXTRA STRENGTH 500-25 MG ORAL TABLET PRN 12/31 TYLENOL PM EXTRA STRENGTH 500-25 MG ORAL TABLET 2071997 DIPHEN HYDRAMINE-APAP (SLEEP) Inactive SKLICE 0.5 % EXTERNAL LOTION Apply 4oz to dry hair and rinse of after 10 minutes SKLICE 0.5 % EXTERNAL LOTION IVERMEC TIN Inactive DIFLUCAN 150 MG ORAL TABLET 1 tablet by mouth daily 10/07/30 DIFLUCAN 150 MG ORAL TABLET 261053 FLUCONAZOLE Inactive PROMETHAZINE HCL 12.5 MG ORAL TABLET 1 tablet by mouth every 4 hours as needed for nausea/vomiting PROMETHAZINE HCL 12.5 MG ORA L TABLET 746413 PROMETHAZINE HCL Inactive TRUE METRIX BLOOD GLUCOSE [...] as directed for gestational DM O24.420 LANCETS 55845068032 LANCETS Inactive FERROUS SULFATE 325 (65 FE) MG ORAL TABLET 1 tablet daily 5 FERROUS SULFATE 325 (65 FE) MG ORAL TABLET 507363 FERROUS SULFATE Inactive LORATADINE 10 MG ORAL TABLET 1 tablet by mouth daily 2 LORATADINE 10 MG ORAL TABLET 177103 LORATADINE Inactive CONCEPT DHA 53.5-38-1 MG ORAL CAPSULE one tab PO daily CONCEPT DHA 53.5-38-1 MG ORAL CAPSULE INUZVE-GDHYD-TZOH-FA-O BILLIE 3 Inactive FLAGYL 250 MG ORAL TABLET One tablet three times a day FLAGYL 250 MG ORAL TABLET 855017 METRONIDAZOLE Inactive AUGMENTIN 875-125 MG ORAL TABLET 1 po BID x 10 days 09/06/11 AUGMENTIN 875-125 MG ORAL TABLET 867452 AMOXICILLIN-POT CLAVULANATE Inactive ACYCLOVIR 400 MG ORAL TABLET One tab PO BID until delivery 06/23 ACYCLOVIR 400 MG ORAL TABLET 505915 ACYCLOVIR Britt ctive Immunizations Vaccine Administration Date [...] 11 .0-15.0 platelet count 226 THOUSAND/UL 10*3/mm3 250-527 1727/05/11 mean platelet volume 10.3 fL 7.5-12.5 Blood [...] SCREEN, RBCW/REFL I , Drug Abuse Pnl 10-50/37227 - Blood bank antibody screen, serum NO ANTIBODIES DETECTED Lab Report: CBC, [id number] Gluc cari-1spec - Hematology leukocyte count, blood [...] 201 10^3/MM^3 10*3/mm3 142-424 Lab Report: Chlamydia/GC APTIMA/43539, H EPATITIS B S AG W/, HIV-1/2 Agn/ ... - Chemistry hepatitis B surface antigen NON-REACTIVE NON-RE ACTIVE rapid plasma reagin antibody titer NON-REACTIVE NON-REACTIVE Lab Report: Chlamydia/GC APTIMA/78353, H EPATITIS B S AG W/, HIV-1/2 Agn/ ... - Lab chlamydia DNA probe NOT DETECTED NOT DETECTED Lab Report: Chlamydia/GC APTIMA/67180, H EPATITIS B S AG W/, HIV-1/2 [...] pH, urine, semiquantitative 7.0 5.0-8.5 Lab Report: [facility] [place] - Chemistry human chorionic [...] N Encounters Code Encounter Date Provider Facility CPT-42565 Level 3 Est. Patient 14:03:17 CDT Dionne bey MD [facility] CPT-37542 Level 4 Est. Patient 15:39:57 CDT Nayeli herrera [facility] CPT-91157 Level 3 Est. Patient 17:26:51 CDT [facility] CPT-95533 Level 3 Est. Patient 17:31:05 PRE SALES TECHNICAL CONSULTANT Cintia sommer [facility] Procedures Code Procedure Name Date Entry Date Standard Desc ription CPT-10833 Visit 10:15:43 PRE SALES TECHNICAL CONSULTANT CPT-59076 Visit 13:02:58 PRE SALES TECHNICAL CONSULTANT CPT-36678 Visit 12:11:18 PRE SALES TECHNICAL CONSULTANT CPT-47802 Visit 10:38:39 CDT CPT-69483 Visit 08:28:55 CDT CPT-57344 Addl Vx - Ix admin via ID IM or jet injects without counseling by physician 18:18:11 CDT CPT-59301 Boostrix Intramuscular Suspension 5-2.5-18.5 201 04/01/05 18:18:11 CDT CPT-99178 First Vx - Ix admin via ID I M or jet injects without counseling by physician 18:18:11 CDT CPT-32957 Flulaval Intramuscular Injectable 18:18:11 CDT CPT-56196 Fluzone Thim Free 36mo and older 11:16:54 C DT CPT-48190 Tdap 7yrs or > 11:16:53 CDT CPT-63047 Visit 11:16:53 CDT CPT-35964 Visit 11:14:16 CDT CPT-26470 Visit 10:54:00 CDT CPT-81899 Visit 16:24:31 CDT CPT-88160 Sono OB comp > 14 weeks - XRAY USE ONLY 12:01:14 CDT CPT-85355 Visit 15:58:08 CDT CPT-78399 Visit 12:16:56 CDT CPT-70328V Sono OB comp <14 weeks ([place] Only) - X RAY USE ONLY 12:09:02 CDT CPT-35877 Spec Collection and Handling Fee 10:11:50 C DT CPT-44708 Visit 10:11:49 CDT CPT-J1050 Depo Provera 150 mg (Medroxyprogesterone) 08/30 16:06:30 PRE SALES TECHNICAL CONSULTANT CPT-68058 Abx/Therapy Injection 16:06:30 PRE SALES TECHNICAL CONSULTANT CPT-J1050 Depo Provera 150 mg (Medroxyprogesterone) 08/30 15:39:17 PRE SALES TECHNICAL CONSULTANT CPT-96512 Visit 15:01:38 CDT CPT-25595 Sono OB comp > 14 weeks 16:05:04 CDT 03/18 CPT-16116 Spec Collection and Handling Fee 10:45:40 C DT CPT-66339 Visit 10:45:40 CDT
--- OUTSIDE RECORDS SUMMARY | 2020-01-04 23:43 | XMS REPORT | Clinical Summary ---
Author Author Admin, Giuliana Flores Organization [facility] Address Unknown Phone Unavailable Allergies, [...] use disorder NEED FOR PROPHYLACTIC VACCINATION WITH JHJNKOY-IGWZU-R UBELLA (MMR) VACCINE V06.4 Resolved Cintia Pagan APRN Need for prophylactic vaccination with cienbxt-nwqoa-nwfdkew [MMR] vaccine Contraceptive management V25.9 Resolved Taiwo [...] gestation of V28.9 Inactive 2017 Nayeli Duke [employer] HANGER Encounter for unspecified scre ening of mother [...] gestation of V28.9 Inactive 2017 Nayeli Duke [employer] HANGER Encounter for unspecified scre ening of mother [...] MD care, delayed ICD-V23.7 Inactive Kristin Pagan [employer]DL[employer] HANGER NEED FOR PROPHYLACTIC VACCINATION WITH QVDDBGM-ROVPW-P UBELLA (MMR) VACCINE ICD-V06.4 Inactive Cintia Pagan [employer] HANGER Contraceptive management ICD-V25.9 Inactive Dionne Stewart MD follow-up, routine ICD-V24.2 Inacti ve Dionne Stewart MD 29 weeks gestation of ICD-V28.9 Inac tive Nayeli Duke [employer]DL[employer] HANGER Abnormal biochemical finding on screening ICD-796.5 Inactive [...] MG ORAL CAPSULE one tab PO daily LWWAGT-MLZOD-EIRT-FA-OMEGA 3 01485803024 No Longer Active Dionne Stewart MD Active LORATADINE 10 MG ORAL TABLET 1 tablet by mouth daily 2 LORATADINE 23251607941 No Longer Active Dionne Stewart MD Active FERROUS SULFATE 325 (65 FE) MG ORAL TABLET 1 tablet daily 5 FERROUS SULFATE 33454334097 No Longer Active Dionne Stewart MD Acti ve LANCETS Test blood sugars as directed for gestational DM O24.420 LANCETS 64153040003 No Longer Active Dionne Stewart MD A ctive TRUE METRIX GO GLUCOSE METER W/DEVICE KIT Check blood sugars as directed BLOOD GLUCOSE MONITORING SUPPL 60560745926 N o Longer Active Dionne Stewart MD Active TRUE METRIX BLOOD GLUCOSE TEST IN VITRO STRIP Check bl ood sugars four times a day as directed for gestational DM; O24.420 GLUC OSE BLOOD 99803976004 No Longer Active Dionne Stewart MD Active PROMETHAZINE HCL 12.5 MG ORAL TABLET 1 tablet by mouth every 4 hours as needed for nausea/vomiting PROMETHAZINE HCL 46763405177 No L onger Active Dionne Stewart MD Active DIFLUCAN 150 MG ORAL TABLET 1 tablet by mouth daily 10/07/30 FLUCONAZOLE 81296816150 No Longer Active Billie Active ACYCLOVIR 400 MG ORAL TABLET One tab PO BID until delivery 06/23 ACYCLOVIR 64171442130 No Longer Active Dionne Stewart MD A ctive SKLICE 0.5 % EXTERNAL LOTION Apply 4oz to dry hair and rinse of after 10 minutes IVERMECTIN 96755424957 No Longer Active Carrol a Active AUGMENTIN 875-125 MG ORAL TABLET 1 po BID x 10 days 09/06/11 AMOXICILLIN-POT CLAVULANATE 35493662469 No Longer Active Rosalina Sell [employer]DLES HANGER Active TYLENOL PM EXTRA STRENGTH 500-25 MG ORAL TABLET PRN 12/31 DIPHENHYDRAMINE-APAP (SLEEP) 06305953900 No Longer Active Dionne Stewart MD Active FLAGYL 500 MG ORAL TABLET 1 tablet PO BID for 7 days 2 METRONIDAZOLE 57010679137 No Longer Active Dionne Stewart MD Active EQL FORMULA 28-0.8 MG ORAL TABLET 1 tablet daily 1 VIT-FE FUMARATE-FA 79963593447 No Longer Active Dionne Stewart MD A ctive CONCEPT DHA 53.5-38-1 MG ORAL CAPSULE one tab PO daily TBPAOR-XQEEF-MQPF-FA-OMEGA 3 92694210547 No Longer Active Dionne Stewart MD Active CYCLOBENZAPRINE HCL 10 MG ORAL TABLET 1 tablet by mout h three times daily as needed for muscle spasm/pain CYCLOBENZAPRINE HCL 51933699581 No Longer Active Dionne Stewart MD Active TRI-SPRINTEC 0.18/0.215/0.25 MG-35 MCG ORAL TABLET 1 po qd a s directed NORGESTIM-ETH ESTRAD TRIPHASIC 52575121807 N o Longer Active Dionne Stewart MD Active FLAGYL 250 MG ORAL TABLET One tablet three times a day METRONIDAZOLE 60876700414 No Longer Active Cintia Yokum [employer]DLES HANGER Active [facility] 28-0.8 MG ORAL TABLET 04/10 VIT-FE FUMARATE-FA 53524377914 No Longer Active Dionne Stewart MD Active [facility] 28-0.8 MG ORAL TABLET 04/10 [facility] 28-0.8 MG ORAL TABLET VIT-FE FUMARATE-FA Inactive TRI-SPRINTEC 0.18/0.215/0.25 MG-35 MCG ORAL TABLET 1 po qd a s directed TRI-SPRINTEC 0.18/0.215/0.25 MG-35 MCG ORAL TABL ET 939707 NORGESTIM-ETH ESTRAD TRIPHASIC Inactive CYCLOBENZAPRINE HCL 10 MG ORAL TABLET 1 tablet by mout h three times daily as needed for muscle spasm/pain CYCLOBENZAP RINE HCL 10 MG ORAL TABLET 470492 CYCLOBENZAPRINE HCL Inactive CONCEPT DHA 53.5-38-1 MG ORAL CAPSULE one tab PO daily CONCEPT DHA 53.5-38-1 MG ORAL CAPSULE FMTSXQ-JBYHS-WCSR-FA-O BILLIE 3 Inactive FLAGYL 500 MG ORAL TABLET 1 tablet PO BID for 7 days 2 FLAGYL 500 MG ORAL TABLET 571716 METRONIDAZOLE Inactive TYLENOL PM EXTRA STRENGTH 500-25 MG ORAL TABLET PRN 12/31 TYLENOL PM EXTRA STRENGTH 500-25 MG ORAL TABLET 4697595 DIPHEN HYDRAMINE-APAP (SLEEP) Inactive SKLICE 0.5 % EXTERNAL LOTION Apply 4oz to dry hair and rinse of after 10 minutes SKLICE 0.5 % EXTERNAL LOTION IVERMEC TIN Inactive DIFLUCAN 150 MG ORAL TABLET 1 tablet by mouth daily 10/07/30 DIFLUCAN 150 MG ORAL TABLET 832035 FLUCONAZOLE Inactive PROMETHAZINE HCL 12.5 MG ORAL TABLET 1 tablet by mouth every 4 hours as needed for nausea/vomiting PROMETHAZINE HCL 12.5 MG ORA L TABLET 392377 PROMETHAZINE HCL Inactive TRUE METRIX BLOOD GLUCOSE [...] as directed for gestational DM O24.420 LANCETS 11297498182 LANCETS Inactive FERROUS SULFATE 325 (65 FE) MG ORAL TABLET 1 tablet daily 5 FERROUS SULFATE 325 (65 FE) MG ORAL TABLET 478711 FERROUS SULFATE Inactive LORATADINE 10 MG ORAL TABLET 1 tablet by mouth daily 2 LORATADINE 10 MG ORAL TABLET 433275 LORATADINE Inactive CONCEPT DHA 53.5-38-1 MG ORAL CAPSULE one tab PO daily CONCEPT DHA 53.5-38-1 MG ORAL CAPSULE GWKVTZ-LUJKW-XOZB-FA-O BILLIE 3 Inactive FLAGYL 250 MG ORAL TABLET One tablet three times a day FLAGYL 250 MG ORAL TABLET 189346 METRONIDAZOLE Inactive AUGMENTIN 875-125 MG ORAL TABLET 1 po BID x 10 days 09/06/11 AUGMENTIN 875-125 MG ORAL TABLET 410859 AMOXICILLIN-POT CLAVULANATE Inactive ACYCLOVIR 400 MG ORAL TABLET One tab PO BID until delivery 06/23 ACYCLOVIR 400 MG ORAL TABLET 712500 ACYCLOVIR Britt ctive Immunizations Vaccine Administration Date [...] 11 .0-15.0 platelet count 226 THOUSAND/UL 10*3/mm3 700-878 5151/05/11 mean platelet volume 10.3 fL 7.5-12.5 Blood [...] SCREEN, RBCW/REFL I , Drug Abuse Pnl 10-50/41531 - Blood bank antibody screen, serum NO ANTIBODIES DETECTED Lab Report: CBC, [id number] Gluc cari-1spec - Hematology leukocyte count, blood [...] 201 10^3/MM^3 10*3/mm3 142-424 Lab Report: Chlamydia/GC APTIMA/[id number], H EPATITIS B S AG W/, HIV-1/2 Agn/ ... - Chemistry hepatitis B surface antigen NON-REACTIVE NON-RE ACTIVE rapid plasma reagin antibody titer NON-REACTIVE NON-REACTIVE Lab Report: Chlamydia/GC APTIMA/35206, H EPATITIS B S AG W/, HIV-1/2 Agn/ ... - Lab chlamydia DNA probe NOT DETECTED NOT DETECTED Lab Report: Chlamydia/GC APTIMA/13946, H EPATITIS B S AG W/, HIV-1/2 [...] pH, urine, semiquantitative 7.0 5.0-8.5 Lab Report: [facility] [place] - Chemistry human chorionic gonadotropin , urine, [...] N Encounters Code Encounter Date Provider Facility CPT-39642 Level 3 Est. Patient 14:03:17 CDT Dionne bey MD [facility] CPT-77783 Level 4 Est. Patient 15:39:57 CDT Nayeli herrera [facility] CPT-99473 Level 3 Est. Patient 17:26:51 CDT Rosalina berg [facility] CPT-14067 Level 3 Est. 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 Cintia sommer [facility] Procedures Code Procedure Name Date Entry Date Standard Desc ription CPT-33439 Visit 10:15:43 STUDENT DRIVING INSTRUCTOR CPT-00677 Visit 13:02:58 STUDENT DRIVING INSTRUCTOR CPT-27373 Visit 12:11:18 STUDENT DRIVING INSTRUCTOR CPT-79578 Visit 10:38:39 CDT CPT-42625 Visit 08:28:55 CDT CPT-53136 Addl Vx - Ix admin via ID IM or jet injects without counseling by physician 18:18:11 CDT CPT-86010 Boostrix Intramuscular Suspension 5-2.5-18.5 201 04/01/05 18:18:11 CDT CPT-17410 First Vx - Ix admin via ID I M or jet injects without counseling by physician 18:18:11 CDT CPT-25233 Flulaval Intramuscular Injectable 18:18:11 CDT CPT-80295 Fluzone Thim Free 36mo and older 11:16:54 C DT CPT-18906 Tdap 7yrs or > 11:16:53 CDT CPT-19187 Visit 11:16:53 CDT CPT-18861 Visit 11:14:16 CDT CPT-39922 Visit 10:54:00 CDT CPT-01919 Visit 16:24:31 CDT CPT-82970 Sono OB comp > 14 weeks - XRAY USE ONLY 12:01:14 CDT CPT-16847 Visit 15:58:08 CDT CPT-17657 Visit 12:16:56 CDT CPT-86047R Sono OB comp <14 weeks ([place] Only) - X RAY USE ONLY 12:09:02 CDT CPT-47665 Spec Collection and Handling Fee 10:11:50 C DT CPT-45040 Visit 10:11:49 CDT CPT-J1050 Depo Provera 150 mg (Medroxyprogesterone) 08/30 16:06:30 STUDENT DRIVING INSTRUCTOR CPT-28074 Abx/Therapy Injection 16:06:30 STUDENT DRIVING INSTRUCTOR CPT-J1050 Depo Provera 150 mg (Medroxyprogesterone) 08/30 15:39:17 STUDENT DRIVING INSTRUCTOR CPT-45282 Visit 15:01:38 CDT CPT-21190 Sono OB comp > 14 weeks 16:05:04 CDT 03/18 CPT-29434 Spec Collection and Handling Fee 10:45:40 C DT CPT-27984 Visit 10:45:40 CDT
--- OUTSIDE RECORDS SUMMARY | 2020-01-04 23:44 | XMS REPORT | Clinical Summary ---
Author Author Admin, Giuliana Flores Organization [facility] Address Unknown Phone Unavailable Allergies, Adverse Reactions, Alerts Allergy Name Reaction Description Start Date Severity Status Pr ovider No Known Allergies Megan Wise Conditions or Problems Problem Name Problem Code [...] high risk , third trimester V23.9 03/15 Active Dionne Stewart MD Supervision of unspecified high -risk care, delayed V23.7 Resolved Cintia flores APRN Supervision of high-risk : insufficient care Drug abuse, hx of V15.89 Active Dionne Stewart MD Other specified personal history presenting hazards to health Tobacco abuse, gestational 305.1 Active Nilda Stewart MD Tobacco use disorder NEED FOR PROPHYLACTIC VACCINATION WITH NXNZHZW-ZJIQP-M UBELLA (MMR) VACCINE V06.4 Resolved Cintia Pagan APRN Need for prophylactic vaccination with bhqvmeh-bcylu-ywhapyn [MMR] vaccine Contraceptive management V25.9 Resolved Taiwo Stewart MD Encounter for unspecified contraceptive management follow-up, routine V24.2 Resolved 12/31 Dionne Stewart MD Routine follow-up Vaginal discharge 623.5 Resolved Dionne Anders Leukorrhea, not specified as infective Genital herpes [...] weeks gestation of V28.9 Inactive 2017 Pamela LRT Encounter for unspecified scre ening of mother 25 weeks gestation of V28.9 Inactive 2017 Dionne Stewart MD Encounter for unspecified scre ening of mother 27 weeks gestation of V28.9 Inactive 2017 Dionne Stewart MD Encounter for unspecified scre ening of mother 29 weeks gestation of V28.9 Inactive 2017 Nayeli Duke [employer]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 Encounter for unspecified scre ening of mother Abnormal biochemical finding on screening 796.5 20 09/03/10 Active 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 Clifton 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 Abnormal finding on antenata l screening Sinusitis, acute frontal 461.1 Active Rosalina berg 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 Acute frontal sinusitis GDM, diet controlled 648.80 Active Nayeli Duke 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 Abnormal glucose tolerance complicating , childbirth, or the puerperium, unspecified as to episode of care or not applicable 30 weeks gestation of V28.9 Inactive 2017 Nayeli Duke 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 Encounter for unspecified scre ening of mother [...] equal to 37 weeks 765.29 201 04/01/09 Active Dionne Stewart MD 37 or more completed weeks of g estation Std exposure V01.6 Active Dionne Stewart MD Contact with or exposure to venereal diseases care, delayed ICD-V23.7 Inactive Kristin Pagan 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 NEED FOR PROPHYLACTIC VACCINATION WITH ONJEDSJ-MJPEM-V UBELLA (MMR) VACCINE ICD-V06.4 Inactive Cintia Pagan 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 Contraceptive management ICD-V25.9 Inactive Dionne Stewart MD follow-up, routine ICD-V24.2 Inacti ve Dionne Stewart MD Vaginal discharge ICD-623.5 Inactive Dionne spencer MD 29 weeks gestation of ICD-V28.9 Inac catalina Duke 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 Medication List Medication Instructions Start Date Stop Date Generic Name NDC Status Provider Patient Instruction PROMETHAZINE HCL 12.5 MG ORAL TABLET 1 tablet by mouth every 4 hours as needed for nausea/vomiting PROMETHAZINE HCL 32387097401 Active Estela Clifton LPN Active DIFLUCAN 150 MG ORAL TABLET 1 tablet by mouth daily 20 10/07/30 FLUCONAZOLE 27451663638 No Longer Active Megan Wise Active ACYCLOVIR 400 MG ORAL TABLET One tab PO BID until delivery 06/23 ACYCLOVIR 52804115502 No Longer Active Dionne Stewart MD A ctive SKLICE 0.5 % EXTERNAL LOTION Apply 4oz to dry hair and rinse of after 10 minutes IVERMECTIN 86273779290 No Longer Active Megan lowe Active TRUE METRIX BLOOD GLUCOSE TEST IN VITRO STRIP Check bl ood sugars four times a day as directed for gestational DM; O24.420 GLUC OSE BLOOD 07565888069 Active Nayeli Duke APRN Active TRUE METRIX GO GLUCOSE METER W/DEVICE KIT Check blood sugars as directed BLOOD GLUCOSE MONITORING SUPPL 04302834926 Active Nayeli Duke APRN Active LANCETS Test blood sugars as directed for gestational DM O24. 420 LANCETS 34742687459 Active Nayeli Duke APRN Activ e AUGMENTIN 875-125 MG ORAL TABLET 1 po BID x 10 days 20 09/06/11 AMOXICILLIN-POT CLAVULANATE 54887328639 No Longer Active Rosalina Bland 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 Active FERROUS SULFATE 325 (65 FE) MG ORAL TABLET 1 tablet daily 5 FERROUS SULFATE 51196987155 Active Estela Clifton LPN Active LORATADINE 10 MG ORAL TABLET 1 tablet by mouth daily LORATADINE 18015269248 Active Dionne Stewart MD Active TYLENOL PM EXTRA STRENGTH 500-25 MG ORAL TABLET PRN 12/31 DIPHENHYDRAMINE-APAP (SLEEP) 04856829577 No Longer Active Dionne Stewart MD Active CONCEPT DHA 53.5-38-1 MG ORAL CAPSULE one tab PO daily DIXWQN-JGTCW-WXMY-FA-OMEGA 3 68901823383 Active Dionne Stewart MD Active FLAGYL 500 MG ORAL TABLET 1 tablet PO BID for 7 days 2 METRONIDAZOLE 88055730771 No Longer Active Dionne Stewart MD Active EQL FORMULA 28-0.8 MG ORAL TABLET 1 tablet daily 1 VIT-FE FUMARATE-FA 53115314359 No Longer Active Dionne Stewart MD A ctive CONCEPT DHA 53.5-38-1 MG ORAL CAPSULE one tab PO daily HUYQXI-BISUJ-MRAE-FA-OMEGA 3 51326038208 No Longer Active Dionne Stewart MD Active CYCLOBENZAPRINE HCL 10 MG ORAL TABLET 1 tablet by mout h three times daily as needed for muscle spasm/pain CYCLOBENZAPRINE HCL 49833076383 No Longer Active Dionne Stewart MD Active TRI-SPRINTEC 0.18/0.215/0.25 MG-35 MCG ORAL TABLET 1 po qd a s directed NORGESTIM-ETH ESTRAD TRIPHASIC 64396574616 N o Longer Active Dionne Stewart MD Active FLAGYL 250 MG ORAL TABLET One tablet three times a day METRONIDAZOLE 09135944897 No Longer Active Cintia Pagan APRN Active [facility] 28-0.8 MG ORAL TABLET 04/10 VIT-FE FUMARATE-FA 54255280758 No Longer Active Dionne Stewart MD Active [facility] 28-0.8 MG ORAL TABLET 04/10 [facility] 28-0.8 MG ORAL TABLET VIT-FE FUMARATE-FA Inactive TRI-SPRINTEC 0.18/0.215/0.25 MG-35 MCG ORAL TABLET 1 po qd a s directed TRI-SPRINTEC 0.18/0.215/0.25 MG-35 MCG ORAL TABL ET 513686 NORGESTIM-ETH ESTRAD TRIPHASIC Inactive CYCLOBENZAPRINE HCL 10 MG ORAL TABLET 1 tablet by mout h three times daily as needed for muscle spasm/pain CYCLOBENZAP RINE HCL 10 MG ORAL TABLET 214234 CYCLOBENZAPRINE HCL Inactive CONCEPT DHA 53.5-38-1 MG ORAL CAPSULE one tab PO daily CONCEPT DHA 53.5-38-1 MG ORAL CAPSULE AWMVQH-QICMC-AVSS-FA-O BILLIE 3 Inactive FLAGYL 500 MG ORAL TABLET 1 tablet PO BID for 7 days 2 FLAGYL 500 MG ORAL TABLET 212115 METRONIDAZOLE Inactive TYLENOL PM EXTRA STRENGTH 500-25 MG ORAL TABLET PRN 12/31 TYLENOL PM EXTRA STRENGTH 500-25 MG ORAL TABLET 3975564 DIPHEN HYDRAMINE-APAP (SLEEP) Inactive SKLICE 0.5 % EXTERNAL LOTION Apply 4oz to dry hair and rinse of after 10 minutes SKLICE 0.5 % EXTERNAL LOTION IVERMEC TIN Inactive DIFLUCAN 150 MG ORAL TABLET 1 tablet by mouth daily 10/07/30 DIFLUCAN 150 MG ORAL TABLET 799349 FLUCONAZOLE Inactive FLAGYL 250 MG ORAL TABLET One tablet three times a day FLAGYL 250 MG ORAL TABLET 529712 METRONIDAZOLE Inactive AUGMENTIN 875-125 MG ORAL TABLET 1 po BID x 10 days 09/06/11 AUGMENTIN 875-125 MG ORAL TABLET 608316 AMOXICILLIN-POT CLAVULANATE Inactive ACYCLOVIR 400 MG ORAL TABLET One tab PO BID until delivery 06/23 ACYCLOVIR 400 MG ORAL TABLET 373903 ACYCLOVIR Britt ctive Immunizations Vaccine Administration Date Value Standard Koko cription hepatitis B vaccine series yes hepat itis B vaccine, unspecified formulation hepatitis B vaccine series no hepat itis B vaccine, unspecified formulation Vital Signs Date Name Value Unit Range Description blood pressure, diastolic 69 mm[Hg] BP miramontes [...] 11 .0-15.0 platelet count 226 THOUSAND/UL 10*3/mm3 204-410 2877/05/11 mean platelet volume 10.3 fL 7.5-12.5 Blood [...] SCREEN, RBCW/REFL I , Drug Abuse Pnl 1050/49978 - Blood bank antibody screen, serum NO ANTIBODIES DETECTED Lab Report: CBC, [id number] Gluc cari-1spec - Hematology leukocyte count, blood [...] 201 10^3/MM^3 10*3/mm3 142-424 Lab Report: Chlamydia/GC APTIMA/58199, H EPATITIS B S AG W/, HIV-1/2 Agn/ ... - Chemistry hepatitis B surface antigen NON-REACTIVE NON-RE ACTIVE rapid plasma reagin antibody titer NON-REACTIVE NON-REACTIVE Lab Report: Chlamydia/GC APTIMA/15658, H EPATITIS B S AG W/, HIV-1/2 Agn/ ... - Lab chlamydia DNA probe NOT DETECTED NOT DETECTED Lab Report: Chlamydia/GC APTIMA/58763, H EPATITIS B S AG W/, HIV-1/2 [...] 1.015 1.000-1.030 pH, urine, semiquantitative 7.0 5.0-8.5 Office Visit: 4 wk f/u and quad [...] N Encounters Code Encounter Date Provider Facility CPT-97722 Level 4 Est. Patient 15:39:57 CDT Nayeli herrera [facility] Madeleine [facility] CPT-72012 Level 3 Est. Patient 17:26:51 CDT Rosalina berg [facility] Madeleine [facility] CPT-38337 Level 3 Est. 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 Procedures Code Procedure Name Date Entry Date Standard Desc ription CPT-22230 Visit 10:15:43 BUCKET WASH OPERATOR CPT-88761 Visit 13:02:58 BUCKET WASH OPERATOR CPT-88824 Visit 12:11:18 BUCKET WASH OPERATOR CPT-46596 Visit 10:38:39 CDT CPT-21810 Visit 08:28:55 CDT CPT-26513 Addl Vx - Ix admin via ID IM or jet injects without counseling by physician 18:18:11 CDT CPT-42205 Boostrix Intramuscular Suspension 5-2.5-18.5 201 04/01/05 18:18:11 CDT CPT-47204 First Vx - Ix admin via ID I M or jet injects without counseling by physician 18:18:11 CDT CPT-54060 Flulaval Intramuscular Injectable 18:18:11 CDT CPT-23610 Fluzone Thim Free 36mo and older 11:16:54 C DT CPT-86883 Tdap 7yrs or > 11:16:53 CDT CPT-00947 Visit 11:16:53 CDT CPT-64491 Visit 11:14:16 CDT CPT-80753 Visit 10:54:00 CDT CPT-07745 Visit 16:24:31 CDT CPT-03214 Sono OB comp > 14 weeks - XRAY USE ONLY 12:01:14 CDT CPT-17055 Visit 15:58:08 CDT CPT-99819 Visit 12:16:56 CDT CPT-79964D Sono OB comp <14 weeks ([place] Only) - X RAY USE ONLY 12:09:02 CDT CPT-18261 Spec Collection and Handling Fee 10:11:50 C DT CPT-80945 Visit 10:11:49 CDT CPT-J1050 Depo Provera 150 mg (Medroxyprogesterone) 08/30 16:06:30 BUCKET WASH OPERATOR CPT-47080 Abx/Therapy Injection 16:06:30 BUCKET WASH OPERATOR CPT-J1050 Depo Provera 150 mg (Medroxyprogesterone) 08/30 15:39:17 BUCKET WASH OPERATOR CPT-57638 Visit 15:01:38 CDT CPT-09315 Sono OB comp > 14 weeks 16:05:04 CDT 03/18 CPT-16759 Spec Collection and Handling Fee 10:45:40 C DT CPT-99149 Visit 10:45:40 CDT
--- OUTSIDE RECORDS SUMMARY | 2020-01-04 23:44 | XMS REPORT | Clinical Summary ---
Author Author Admin, Giuliana Flores Organization [facility] Address Unknown Phone Unavailable Allergies, [...] use disorder NEED FOR PROPHYLACTIC VACCINATION WITH ZVPVJTG-KPQLO-Z UBELLA (MMR) VACCINE V06.4 Resolved Cintia Pagan APRN Need for prophylactic vaccination with gzrpdxa-qmhdf-xfsltvf [MMR] vaccine Contraceptive management V25.9 Resolved Taiwo [...] gestation of V28.9 Inactive 2017 Nayeli Duke COIN BOX INSPECTOR Encounter for unspecified scre ening of mother Abnormal biochemical finding on screening 796.5 20 09/03/10 Active Estela Clifton PAPER BUNDLER Abnormal finding on antenata l screening Sinusitis, acute frontal 461.1 Active Rosalina Se berg COIN BOX INSPECTOR Acute frontal sinusitis GDM, diet controlled 648.80 Active Nayeli Duke COIN BOX INSPECTOR Abnormal glucose tolerance complicating , childbirth, or the puerperium, unspecified as to episode of care or not applicable 30 weeks gestation of V28.9 Inactive 2017 Nayeli Duke COIN BOX INSPECTOR Encounter for unspecified scre ening of mother [...] diseases care, delayed ICD-V23.7 Inactive Kristin Pagan COIN BOX INSPECTOR NEED FOR PROPHYLACTIC VACCINATION WITH CXXLXRQ-ZZPUQ-P UBELLA (MMR) VACCINE ICD-V06.4 Inactive Cintia Pagan COIN BOX INSPECTOR Contraceptive management ICD-V25.9 Inactive Dionne Stewart MD follow-up, routine ICD-V24.2 Inacti ve Dionne Stewart MD Vaginal discharge ICD-623.5 Inactive Dionne spencer MD 29 weeks gestation of ICD-V28.9 Inac catalina Duke COIN BOX INSPECTOR Medication List Medication Instructions Start Date Stop Date Generic Name NDC Status Provider Patient Instruction PROMETHAZINE HCL 12.5 MG ORAL TABLET 1 tablet by mouth every 4 hours as needed for nausea/vomiting PROMETHAZINE HCL 03017024977 Active Estela Clifton LPN Active DIFLUCAN 150 MG ORAL TABLET 1 tablet by mouth daily 20 10/07/30 FLUCONAZOLE 65749428578 No Longer Active Megan Wise Active ACYCLOVIR 400 MG ORAL TABLET One tab PO BID until delivery 06/23 ACYCLOVIR 41294556265 No Longer Active Dionne Stewart MD A ctive SKLICE 0.5 % EXTERNAL LOTION Apply 4oz to dry hair and rinse of after 10 minutes IVERMECTIN 19626035652 No Longer Active Megan lowe Active TRUE METRIX BLOOD GLUCOSE TEST IN VITRO STRIP Check bl ood sugars four times a day as directed for gestational DM; O24.420 GLUC OSE BLOOD 68327895994 Active Nayeli Duke APRN Active TRUE METRIX GO GLUCOSE METER W/DEVICE KIT Check blood sugars as directed BLOOD GLUCOSE MONITORING SUPPL 45455429057 Active Nayeli Duke APRN Active LANCETS Test blood sugars as directed for gestational DM O24. 420 LANCETS 80391668185 Active Nayeli Duke APRN Activ e AUGMENTIN 875-125 MG ORAL TABLET 1 po BID x 10 days 09/06/11 AMOXICILLIN-POT CLAVULANATE 13731988300 No Longer Active Rosalina Bland COIN BOX INSPECTOR Active FERROUS SULFATE 325 (65 FE) MG ORAL TABLET 1 tablet daily 5 FERROUS SULFATE 87113838831 Active Estela Clifton LPN Active LORATADINE 10 MG ORAL TABLET 1 tablet by mouth daily LORATADINE 66544424219 Active Dionne Stewart MD Active TYLENOL PM EXTRA STRENGTH 500-25 MG ORAL TABLET PRN 12/31 DIPHENHYDRAMINE-APAP (SLEEP) 66520730202 No Longer Active Dionne Stewart MD Active CONCEPT DHA 53.5-38-1 MG ORAL CAPSULE one tab PO daily IWSPNW-QRKAH-TQDD-FA-OMEGA 3 80420978003 Active Dionne Stewart MD Active FLAGYL 500 MG ORAL TABLET 1 tablet PO BID for 7 days 2 METRONIDAZOLE 56671703443 No Longer Active Dionne Stewart MD Active EQL FORMULA 28-0.8 MG ORAL TABLET 1 tablet daily 1 VIT-FE FUMARATE-FA 31340831478 No Longer Active Dionne Stewart MD A ctive CONCEPT DHA 53.5-38-1 MG ORAL CAPSULE one tab PO daily LMUQJZ-PKSMI-LRKV-FA-OMEGA 3 30671232850 No Longer Active Dionne Stewart MD Active CYCLOBENZAPRINE HCL 10 MG ORAL TABLET 1 tablet by mout h three times daily as needed for muscle spasm/pain CYCLOBENZAPRINE HCL 94806227830 No Longer Active Dionne Stewart MD Active TRI-SPRINTEC 0.18/0.215/0.25 MG-35 MCG ORAL TABLET 1 po qd a s directed NORGESTIM-ETH ESTRAD TRIPHASIC 64625664378 N o Longer Active Dionne Stewart MD Active FLAGYL 250 MG ORAL TABLET One tablet three times a day METRONIDAZOLE 83184600114 No Longer Active Cintia Pagan APRN Active [facility] 28-0.8 MG ORAL TABLET 04/10 VIT-FE FUMARATE-FA 83769973491 No Longer Active Dionne Stewart MD Active [facility] 28-0.8 MG ORAL TABLET 04/10 [facility] 28-0.8 MG ORAL TABLET VIT-FE FUMARATE-FA Inactive TRI-SPRINTEC 0.18/0.215/0.25 MG-35 MCG ORAL TABLET 1 po qd a s directed TRI-SPRINTEC 0.18/0.215/0.25 MG-35 MCG ORAL TABL ET 140658 NORGESTIM-ETH ESTRAD TRIPHASIC Inactive CYCLOBENZAPRINE HCL 10 MG ORAL TABLET 1 tablet by mout h three times daily as needed for muscle spasm/pain CYCLOBENZAP RINE HCL 10 MG ORAL TABLET 152324 CYCLOBENZAPRINE HCL Inactive CONCEPT DHA 53.5-38-1 MG ORAL CAPSULE one tab PO daily CONCEPT DHA 53.5-38-1 MG ORAL CAPSULE JZMHAK-QKNVH-TXQC-FA-O BILLIE 3 Inactive FLAGYL 500 MG ORAL TABLET 1 tablet PO BID for 7 days 2 FLAGYL 500 MG ORAL TABLET 218557 METRONIDAZOLE Inactive TYLENOL PM EXTRA STRENGTH 500-25 MG ORAL TABLET PRN 12/31 TYLENOL PM EXTRA STRENGTH 500-25 MG ORAL TABLET 7481055 DIPHEN HYDRAMINE-APAP (SLEEP) Inactive SKLICE 0.5 % EXTERNAL LOTION Apply 4oz to dry hair and rinse of after 10 minutes SKLICE 0.5 % EXTERNAL LOTION IVERMEC TIN Inactive DIFLUCAN 150 MG ORAL TABLET 1 tablet by mouth daily 10/07/30 DIFLUCAN 150 MG ORAL TABLET 242198 FLUCONAZOLE Inactive FLAGYL 250 MG ORAL TABLET One tablet three times a day FLAGYL 250 MG ORAL TABLET 187512 METRONIDAZOLE Inactive AUGMENTIN 875-125 MG ORAL TABLET 1 po BID x 10 days 09/06/11 AUGMENTIN 875-125 MG ORAL TABLET 014084 AMOXICILLIN-POT CLAVULANATE Inactive ACYCLOVIR 400 MG ORAL TABLET One tab PO BID until delivery 06/23 ACYCLOVIR 400 MG ORAL TABLET 820193 ACYCLOVIR Britt ctive Immunizations Vaccine Administration Date [...] 11 .0-15.0 platelet count 226 THOUSAND/UL 10*3/mm3 677-825 6866/05/11 mean platelet volume 10.3 fL 7.5-12.5 Blood [...] SCREEN, RBCW/REFL I , Drug Abuse Pnl -50/73224 - Blood bank antibody screen, serum NO ANTIBODIES DETECTED Lab Report: CBC, [id number] Gluc cari-1spec - Hematology leukocyte count, blood [...] 201 10^3/MM^3 10*3/mm3 142-424 Lab Report: Chlamydia/GC APTIMA/62948, H EPATITIS B S AG W/, HIV-1/2 Agn/ ... - Chemistry hepatitis B surface antigen NON-REACTIVE NON-RE ACTIVE rapid plasma reagin antibody titer NON-REACTIVE NON-REACTIVE Lab Report: Chlamydia/GC APTIMA/39881, H EPATITIS B S AG W/, HIV-1/2 Agn/ ... - Lab chlamydia DNA probe NOT DETECTED NOT DETECTED Lab Report: Chlamydia/GC APTIMA/44034, H EPATITIS B S AG W/, HIV-1/2 [...] N Encounters Code Encounter Date Provider Facility CPT-61032 Level 4 Est. Patient 15:39:57 CDT Nayeli herrera [facility] CPT-69893 Level 3 Est. Patient 17:26:51 CDT Rosalina berg [facility] CPT-40888 Level 3 Est. Patient 17:31:05 RESEARCH COMPLIANCE SPECIALIST [facility] Procedures Code Procedure Name Date Entry Date Standard Desc ription CPT-81607 Visit 10:15:43 RESEARCH COMPLIANCE SPECIALIST CPT-47361 Visit 13:02:58 RESEARCH COMPLIANCE SPECIALIST CPT-43492 Visit 12:11:18 RESEARCH COMPLIANCE SPECIALIST CPT-04264 Visit 10:38:39 CDT CPT-50256 Visit 08:28:55 CDT CPT-05796 Addl Vx - Ix admin via ID IM or jet injects without counseling by physician 18:18:11 CDT CPT-89596 Boostrix Intramuscular Suspension 5-2.5-18.5 201 04/01/05 18:18:11 CDT CPT-11471 First Vx - Ix admin via ID I M or jet injects without counseling by physician 18:18:11 CDT CPT-97936 Flulaval Intramuscular Injectable 18:18:11 CDT CPT-63983 Fluzone Thim Free 36mo and older 11:16:54 C DT CPT-03980 Tdap 7yrs or > 11:16:53 CDT CPT-08418 Visit 11:16:53 CDT CPT-01916 Visit 11:14:16 CDT CPT-66021 Visit 10:54:00 CDT CPT-69468 Visit 16:24:31 CDT CPT-27454 Sono OB comp > 14 weeks - XRAY USE ONLY 12:01:14 CDT CPT-78120 Visit 15:58:08 CDT CPT-38266 Visit 12:16:56 CDT CPT-85030P Sono OB comp <14 weeks (Pat Only) - X RAY USE ONLY 12:09:02 CDT CPT-83377 Spec Collection and Handling Fee 10:11:50 C DT CPT-60877 Visit 10:11:49 CDT CPT-J1050 Depo Provera 150 mg (Medroxyprogesterone) 08/30 16:06:30 RESEARCH COMPLIANCE SPECIALIST CPT-65582 Abx/Therapy Injection 16:06:30 RESEARCH COMPLIANCE SPECIALIST CPT-J1050 Depo Provera 150 mg (Medroxyprogesterone) 08/30 15:39:17 RESEARCH COMPLIANCE SPECIALIST CPT-89607 Visit 15:01:38 CDT CPT-23713 Sono OB comp > 14 weeks 16:05:04 CDT 03/18 CPT-82830 Spec Collection and Handling Fee 10:45:40 C DT CPT-83666 Visit 10:45:40 CDT
--- OUTSIDE RECORDS SUMMARY | 2020-01-04 23:44 | XMS REPORT | Clinical Summary ---
Author Author Admin, Giuliana Flores Organization [facility] Address Unknown Phone Unavailable Allergies, Adverse Reactions, [...] use disorder NEED FOR PROPHYLACTIC VACCINATION WITH YGNWSMH-IQSPW-U UBELLA (MMR) VACCINE V06.4 Resolved Cintia Pagan APRN Need for prophylactic vaccination with incbvvn-xnwaa-dxjtypi [MMR] vaccine Contraceptive management V25.9 Resolved Taiwo [...] gestation of V28.9 Inactive 2017 Nayeli Duke MASTER FIRE CONTROL TECHNICIAN Encounter for unspecified scre ening of mother [...] weeks gestation of V28.9 Inactive 2017 Nayeli [place] MASTER FIRE CONTROL TECHNICIAN Encounter for unspecified scre ening of mother [...] MD care, delayed ICD-V23.7 Inactive Kristin Pagan MASTER FIRE CONTROL TECHNICIAN NEED FOR PROPHYLACTIC VACCINATION WITH PWKYHKY-RVEHD-W UBELLA (MMR) VACCINE ICD-V06.4 Inactive Cintia Pagan MASTER FIRE CONTROL TECHNICIAN Contraceptive management ICD-V25.9 Inactive Dionne Stewart MD follow-up, routine ICD-V24.2 Inacti ve Dionne Stewart MD 29 weeks gestation of ICD-V28.9 Inac tiflorentino Duke MASTER FIRE CONTROL TECHNICIAN Abnormal biochemical finding on screening ICD-796.5 Inactive [...] MG ORAL CAPSULE one tab PO daily JRRDMF-ZZYNU-QASQ-FA-OMEGA 3 44650621506 No Longer Active Dionne Stewart MD Active LORATADINE 10 MG ORAL TABLET 1 tablet by mouth daily 2 LORATADINE 50358537815 No Longer Active Dionne Stewart MD Active FERROUS SULFATE 325 (65 FE) MG ORAL TABLET 1 tablet daily 5 FERROUS SULFATE 80853058194 No Longer Active Dionne Stewart MD Acti ve LANCETS Test blood sugars as directed for gestational DM O24.420 LANCETS 11050669484 No Longer Active Dionne Stewart MD A ctive TRUE METRIX GO GLUCOSE METER W/DEVICE KIT Check blood sugars as directed BLOOD GLUCOSE MONITORING SUPPL 94679445841 N o Longer Active Dionne Stewart MD Active TRUE METRIX BLOOD GLUCOSE TEST IN VITRO STRIP Check bl ood sugars four times a day as directed for gestational DM; O24.420 GLUC OSE BLOOD 29113698354 No Longer Active Dionne Stewart MD Active PROMETHAZINE HCL 12.5 MG ORAL TABLET 1 tablet by mouth every 4 hours as needed for nausea/vomiting PROMETHAZINE HCL 55519718290 No L onger Active Dionne Stewart MD Active DIFLUCAN 150 MG ORAL TABLET 1 tablet by mouth daily 10/07/30 FLUCONAZOLE 88495170361 No Longer Active Billie Active ACYCLOVIR 400 MG ORAL TABLET One tab PO BID until delivery 06/23 ACYCLOVIR 12923610444 No Longer Active Dionne Stewart MD A ctive SKLICE 0.5 % EXTERNAL LOTION Apply 4oz to dry hair and rinse of after 10 minutes IVERMECTIN 75794509004 No Longer Active Carrol a Active AUGMENTIN 875-125 MG ORAL TABLET 1 po BID x 10 days 09/06/11 AMOXICILLIN-POT CLAVULANATE 31447867532 No Longer Active Rosalina Sell MASTER FIRE CONTROL TECHNICIAN Active TYLENOL PM EXTRA STRENGTH 500-25 MG ORAL TABLET PRN 12/31 DIPHENHYDRAMINE-APAP (SLEEP) 43274949606 No Longer Active Dionne Stewart MD Active FLAGYL 500 MG ORAL TABLET 1 tablet PO BID for 7 days 2 METRONIDAZOLE 83580859113 No Longer Active Dionne Stewart MD Active EQL FORMULA 28-0.8 MG ORAL TABLET 1 tablet daily 1 VIT-FE FUMARATE-FA 88115080809 No Longer Active Dionne Stewart MD A ctive CONCEPT DHA 53.5-38-1 MG ORAL CAPSULE one tab PO daily NOQVQL-DYFQY-ZMUF-FA-OMEGA 3 90717326983 No Longer Active Dionne Stewart MD Active CYCLOBENZAPRINE HCL 10 MG ORAL TABLET 1 tablet by mout h three times daily as needed for muscle spasm/pain CYCLOBENZAPRINE HCL 16494432873 No Longer Active Dionne Stewart MD Active TRI-SPRINTEC 0.18/0.215/0.25 MG-35 MCG ORAL TABLET 1 po qd a s directed NORGESTIM-ETH ESTRAD TRIPHASIC 09576209469 N o Longer Active Dionne Stewart MD Active FLAGYL 250 MG ORAL TABLET One tablet three times a day METRONIDAZOLE 22741698426 No Longer Active Cintia [place]um MASTER FIRE CONTROL TECHNICIAN Active [facility] 28-0.8 MG ORAL TABLET 04/10 VIT-FE FUMARATE-FA 60874917110 No Longer Active Dionne Stewart MD Active [facility] 28-0.8 MG ORAL TABLET 04/10 [facility] 28-0.8 MG ORAL TABLET VIT-FE FUMARATE-FA Inactive TRI-SPRINTEC 0.18/0.215/0.25 MG-35 MCG ORAL TABLET 1 po qd a s directed TRI-SPRINTEC 0.18/0.215/0.25 MG-35 MCG ORAL TABL ET 729580 NORGESTIM-ETH ESTRAD TRIPHASIC Inactive CYCLOBENZAPRINE HCL 10 MG ORAL TABLET 1 tablet by mout h three times daily as needed for muscle spasm/pain CYCLOBENZAP RINE HCL 10 MG ORAL TABLET 674303 CYCLOBENZAPRINE HCL Inactive CONCEPT DHA 53.5-38-1 MG ORAL CAPSULE one tab PO daily CONCEPT DHA 53.5-38-1 MG ORAL CAPSULE ESNLQH-MHLVP-EXDQ-FA-O BILLIE 3 Inactive FLAGYL 500 MG ORAL TABLET 1 tablet PO BID for 7 days 2 FLAGYL 500 MG ORAL TABLET 625103 METRONIDAZOLE Inactive TYLENOL PM EXTRA STRENGTH 500-25 MG ORAL TABLET PRN 12/31 TYLENOL PM EXTRA STRENGTH 500-25 MG ORAL TABLET 5879689 DIPHEN HYDRAMINE-APAP (SLEEP) Inactive SKLICE 0.5 % EXTERNAL LOTION Apply 4oz to dry hair and rinse of after 10 minutes SKLICE 0.5 % EXTERNAL LOTION IVERMEC TIN Inactive DIFLUCAN 150 MG ORAL TABLET 1 tablet by mouth daily 10/07/30 DIFLUCAN 150 MG ORAL TABLET 881523 FLUCONAZOLE Inactive PROMETHAZINE HCL 12.5 MG ORAL TABLET 1 tablet by mouth every 4 hours as needed for nausea/vomiting PROMETHAZINE HCL 12.5 MG ORA L TABLET 618827 PROMETHAZINE HCL Inactive TRUE METRIX BLOOD GLUCOSE [...] as directed for gestational DM O24.420 LANCETS 39028188515 LANCETS Inactive FERROUS SULFATE 325 (65 FE) MG ORAL TABLET 1 tablet daily 5 FERROUS SULFATE 325 (65 FE) MG ORAL TABLET 014610 FERROUS SULFATE Inactive LORATADINE 10 MG ORAL TABLET 1 tablet by mouth daily 2 LORATADINE 10 MG ORAL TABLET 386645 LORATADINE Inactive CONCEPT DHA 53.5-38-1 MG ORAL CAPSULE one tab PO daily CONCEPT DHA 53.5-38-1 MG ORAL CAPSULE VPYKES-FAADO-FHHX-FA-O BILLIE 3 Inactive FLAGYL 250 MG ORAL TABLET One tablet three times a day FLAGYL 250 MG ORAL TABLET 839033 METRONIDAZOLE Inactive AUGMENTIN 875-125 MG ORAL TABLET 1 po BID x 10 days 09/06/11 AUGMENTIN 875-125 MG ORAL TABLET 161580 AMOXICILLIN-POT CLAVULANATE Inactive ACYCLOVIR 400 MG ORAL TABLET One tab PO BID until delivery 06/23 ACYCLOVIR 400 MG ORAL TABLET 336637 ACYCLOVIR Britt ctive Immunizations Vaccine Administration Date [...] 11 .0-15.0 platelet count 226 THOUSAND/UL 10*3/mm3 304-699 1759/05/11 mean platelet volume 10.3 fL 7.5-12.5 Blood [...] SCREEN, RBCW/REFL I , Drug Abuse Pnl 10-50/73765 - Blood bank antibody screen, serum NO ANTIBODIES DETECTED Lab Report: CBC, [id number] Gluc cari-1spec - Hematology leukocyte count, blood [...] 201 10^3/MM^3 10*3/mm3 142-424 Lab Report: Chlamydia/GC APTIMA/32216, H EPATITIS B S AG W/, HIV-1/2 Agn/ ... - Chemistry hepatitis B surface antigen NON-REACTIVE NON-RE ACTIVE rapid plasma reagin antibody titer NON-REACTIVE NON-REACTIVE Lab Report: Chlamydia/GC APTIMA/27185, H EPATITIS B S AG W/, HIV-1/2 Agn/ ... - Lab chlamydia DNA probe NOT DETECTED NOT DETECTED Lab Report: Chlamydia/GC APTIMA/77274, H EPATITIS B S AG W/, HIV-1/2 [...] N Encounters Code Encounter Date Provider Facility CPT-43045 Level 3 Est. Patient 14:03:17 CDT Dionne bey MD [facility] CPT-90092 Level 4 Est. Patient 15:39:57 CDT Nayeli herrera [facility] CPT-34027 Level 3 Est. Patient 17:26:51 CDT Rosalina Se berg [facility] CPT-43015 Level 3 Est. Patient 17:31:05 [employer] Cintia osmmer [facility] Procedures Code Procedure Name Date Entry Date Standard Desc ription CPT-17740 Visit 10:15:43 [employer] CPT-03158 Visit 13:02:58 [employer] CPT-28779 Visit 12:11:18 [employer] CPT-45135 Visit 10:38:39 CDT CPT-37967 Visit 08:28:55 CDT CPT-61532 Addl Vx - Ix admin via ID IM or jet injects without counseling by physician 18:18:11 CDT CPT-52000 Boostrix Intramuscular Suspension 5-2.5-18.5 201 04/01/05 18:18:11 CDT CPT-91354 First Vx - Ix admin via ID I M or jet injects without counseling by physician 18:18:11 CDT CPT-91792 Flulaval Intramuscular Injectable 18:18:11 CDT CPT-66964 Fluzone Thim Free 36mo and older 11:16:54 C DT CPT-20105 Tdap 7yrs or > 11:16:53 CDT CPT-31914 Visit 11:16:53 CDT CPT-32934 Visit 11:14:16 CDT CPT-02745 Visit 10:54:00 CDT CPT-65149 Visit 16:24:31 CDT CPT-16012 Sono OB comp > 14 weeks - XRAY USE ONLY 12:01:14 CDT CPT-94435 Visit 15:58:08 CDT CPT-59709 Visit 12:16:56 CDT CPT-99825P Sono OB comp <14 weeks ([place] Only) - X RAY USE ONLY 12:09:02 CDT CPT-74469 Spec Collection and Handling Fee 10:11:50 C DT CPT-39082 Visit 10:11:49 CDT CPT-J1050 Depo Provera 150 mg (Medroxyprogesterone) 08/30 16:06:30 [employer] CPT-77660 Abx/Therapy Injection 16:06:30 [employer] CPT-J1050 Depo Provera 150 mg (Medroxyprogesterone) 08/30 15:39:17 [employer] CPT-88539 Visit 15:01:38 CDT CPT-83363 Sono OB comp > 14 weeks 16:05:04 CDT 03/18 CPT-30646 Spec Collection and Handling Fee 10:45:40 C DT CPT-49888 Visit 10:45:40 CDT
[2020-01-04 23:45] VITALS: BP 114/52
--- OUTSIDE RECORDS SUMMARY | 2020-01-04 23:45 | XMS REPORT | Clinical Summary ---
Author Author Admin, Giuliana Flores Organization [facility] Address Unknown Phone Unavailable Allergies, Adverse Reactions, [...] use disorder NEED FOR PROPHYLACTIC VACCINATION WITH MSZYBLD-WVJSX-C UBELLA (MMR) VACCINE V06.4 Resolved Cintia Pagan APRN Need for prophylactic vaccination with ufbjaaf-emkcr-eqjwpck [MMR] vaccine Contraceptive management V25.9 Resolved Taiwo Stewart MD Encounter for unspecified contraceptive management follow-up, routine V24.2 Resolved 12/31 Dionne Stewatr MD Routine follow-up Vaginal discharge 623.5 Resolved [...] gestation of V28.9 Inactive 2017 Nayeli Duke [employer]AIL [employer]CH[employer]ISING Encounter for unspecified scre ening of mother Abnormal biochemical finding on screening 796.5 20 09/03/10 Active 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 Abnormal finding on antenata l screening Sinusitis, acute frontal 461.1 Active Rosalina berg [employer] Acute frontal sinusitis GDM, diet controlled 648.80 Active Nayeli Duke [employer]CHANDISING Abnormal glucose tolerance complicating , childbirth, or the puerperium, unspecified as to episode of care or not applicable 30 weeks gestation of V28.9 Inactive 2017 Nayeli Duke [employer] G[employer]CHANDISING Encounter for unspecified scre ening of mother [...] diseases care, delayed ICD-V23.7 Inactive Kristin Pagan RETAIL G[employer] MERCHANDISING NEED FOR PROPHYLACTIC VACCINATION WITH XZVOHFS-PSUAJ-M UBELLA (MMR) VACCINE ICD-V06.4 Inactive Cintia Pagan [employer] Contraceptive management ICD-V25.9 Inactive Dionne Stewart MD follow-up, routine ICD-V24.2 Inacti ve Dionne Stewart MD Vaginal discharge ICD-623.5 Inactive Dionne spencer MD 29 weeks gestation of ICD-V28.9 Inac catalina Duke [employer] Medication List Medication Instructions Start Date Stop Date Generic Name NDC Status Provider Patient Instruction PROMETHAZINE HCL 12.5 MG ORAL TABLET 1 tablet by mouth every 4 hours as needed for nausea/vomiting PROMETHAZINE HCL 93853878219 Active Estela Clifton LPN Active DIFLUCAN 150 MG ORAL TABLET 1 tablet by mouth daily 20 10/07/30 FLUCONAZOLE 55447677820 No Longer Active Megan Wise Active ACYCLOVIR 400 MG ORAL TABLET One tab PO BID until delivery 06/23 ACYCLOVIR 54355510376 Active Dionne Stewart MD Active SKLICE 0.5 % EXTERNAL LOTION Apply 4oz to dry hair and rinse of after 10 minutes IVERMECTIN 17213187059 No Longer Active Megan lowe Active TRUE METRIX BLOOD GLUCOSE TEST IN VITRO STRIP Check bl ood sugars four times a day as directed for gestational DM; O24.420 GLUC OSE BLOOD 93078668402 Active Nayeli Duke APRN Active TRUE METRIX GO GLUCOSE METER W/DEVICE KIT Check blood sugars as directed BLOOD GLUCOSE MONITORING SUPPL 63221977851 Active Nayeli Duke APRN Active LANCETS Test blood sugars as directed for gestational DM O24. 420 LANCETS 48142982291 Active Nayeli Duke APRN Activ e AUGMENTIN 875-125 MG ORAL TABLET 1 po BID x 10 days 09/06/11 AMOXICILLIN-POT CLAVULANATE 24486915581 No Longer Active Rosalina Bland [employer]ISING Active FERROUS SULFATE 325 (65 FE) MG ORAL TABLET 1 tablet daily 5 FERROUS SULFATE 07065395327 Active Estela Clifton LPN Active LORATADINE 10 MG ORAL TABLET 1 tablet by mouth daily LORATADINE 99845706209 Active Dionne Stewart MD Active TYLENOL PM EXTRA STRENGTH 500-25 MG ORAL TABLET PRN 12/31 DIPHENHYDRAMINE-APAP (SLEEP) 00647494312 No Longer Active Dionne Stewart MD Active CONCEPT DHA 53.5-38-1 MG ORAL CAPSULE one tab PO daily OCXKKD-EZUXD-LHTO-FA-OMEGA 3 19441499214 Active Dionne Stewart MD Active FLAGYL 500 MG ORAL TABLET 1 tablet PO BID for 7 days 2 METRONIDAZOLE 09612865767 No Longer Active Dionne Stewart MD Active EQL FORMULA 28-0.8 MG ORAL TABLET 1 tablet daily 1 VIT-FE FUMARATE-FA 74553126660 No Longer Active Dionne Stewart MD A ctive CONCEPT DHA 53.5-38-1 MG ORAL CAPSULE one tab PO daily OJNUFH-KQJLX-BVOK-FA-OMEGA 3 71088196740 No Longer Active Dionne Stewart MD Active CYCLOBENZAPRINE HCL 10 MG ORAL TABLET 1 tablet by mout h three times daily as needed for muscle spasm/pain CYCLOBENZAPRINE HCL 99603695255 No Longer Active Dionne Stewart MD Active TRI-SPRINTEC 0.18/0.215/0.25 MG-35 MCG ORAL TABLET 1 po qd a s directed NORGESTIM-ETH ESTRAD TRIPHASIC 40474619237 N o Longer Active Dionne Stewart MD Active FLAGYL 250 MG ORAL TABLET One tablet three times a day METRONIDAZOLE 13247683787 No Longer Active Cintia Pagan APRN Active [facility] 28-0.8 MG ORAL TABLET 04/10 VIT-FE FUMARATE-FA 66545340351 No Longer Active Dionne Stewart MD Active [facility] 28-0.8 MG ORAL TABLET 04/10 [facility] 28-0.8 MG ORAL TABLET VIT-FE FUMARATE-FA Inactive TRI-SPRINTEC 0.18/0.215/0.25 MG-35 MCG ORAL TABLET 1 po qd a s directed TRI-SPRINTEC 0.18/0.215/0.25 MG-35 MCG ORAL TABL ET 374107 NORGESTIM-ETH ESTRAD TRIPHASIC Inactive CYCLOBENZAPRINE HCL 10 MG ORAL TABLET 1 tablet by mout h three times daily as needed for muscle spasm/pain CYCLOBENZAP RINE HCL 10 MG ORAL TABLET 389129 CYCLOBENZAPRINE HCL Inactive CONCEPT DHA 53.5-38-1 MG ORAL CAPSULE one tab PO daily CONCEPT DHA 53.5-38-1 MG ORAL CAPSULE VOFWJO-LGEOD-XWBM-FA-O BILLIE 3 Inactive FLAGYL 500 MG ORAL TABLET 1 tablet PO BID for 7 days 2 FLAGYL 500 MG ORAL TABLET 699474 METRONIDAZOLE Inactive TYLENOL PM EXTRA STRENGTH 500-25 MG ORAL TABLET PRN 12/31 TYLENOL PM EXTRA STRENGTH 500-25 MG ORAL TABLET 8372392 DIPHEN HYDRAMINE-APAP (SLEEP) Inactive SKLICE 0.5 % EXTERNAL LOTION Apply 4oz to dry hair and rinse of after 10 minutes SKLICE 0.5 % EXTERNAL LOTION IVERMEC TIN Inactive DIFLUCAN 150 MG ORAL TABLET 1 tablet by mouth daily 10/07/30 DIFLUCAN 150 MG ORAL TABLET 010658 FLUCONAZOLE Inactive FLAGYL 250 MG ORAL TABLET One tablet three times a day FLAGYL 250 MG ORAL TABLET 947277 METRONIDAZOLE Inactive AUGMENTIN 875-125 MG ORAL TABLET 1 po BID x 10 days 09/06/11 AUGMENTIN 875-125 MG ORAL TABLET 587267 AMOXICILLIN-POT CLAVULANATE Inactive Immunizations Vaccine Administration Date Value Standard Koko [...] 11 .0-15.0 platelet count 226 THOUSAND/UL 10*3/mm3 048-835 6154/05/11 mean platelet volume 10.3 fL 7.5-12.5 Blood [...] SCREEN, RBCW/REFL I , Drug Abuse Pnl 10-50/90622 - Blood bank antibody screen, serum NO ANTIBODIES DETECTED Lab Report: CBC, [id number] Gluc cari-1spec - Hematology leukocyte count, blood [...] 201 10^3/MM^3 10*3/mm3 142-424 Lab Report: Chlamydia/GC APTIMA/25398, H EPATITIS B S AG W/, HIV-1/2 Agn/ ... - Chemistry hepatitis B surface antigen NON-REACTIVE NON-RE ACTIVE rapid plasma reagin antibody titer NON-REACTIVE NON-REACTIVE Lab Report: Chlamydia/GC APTIMA/55065, H EPATITIS B S AG W/, HIV-1/2 Agn/ ... - Lab chlamydia DNA probe NOT DETECTED NOT DETECTED Lab Report: Chlamydia/GC APTIMA/34635, H EPATITIS B S AG W/, HIV-1/2 [...] N Encounters Code Encounter Date Provider Facility CPT-96202 Level 4 Est. Patient 15:39:57 CDT Nayeli herrera [facility] CPT-17726 Level 3 Est. Patient 17:26:51 CDT Rosalina berg [facility] CPT-35985 Level 3 Est. 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 CPT-08072 Visit 10:38:39 CDT CPT-63915 Visit 08:28:55 CDT CPT-29541 Addl Vx - Ix admin via ID IM or jet injects without counseling by physician 18:18:11 CDT CPT-88296 Boostrix Intramuscular Suspension 5-2.5-18.5 201 04/01/05 18:18:11 CDT CPT-71070 First Vx - Ix admin via ID I M or jet injects without counseling by physician 18:18:11 CDT CPT-30163 Flulaval Intramuscular Injectable 18:18:11 CDT CPT-25562 Fluzone Thim Free 36mo and older 11:16:54 C DT CPT-29756 Tdap 7yrs or > 11:16:53 CDT CPT-70326 Visit 11:16:53 CDT CPT-21723 Visit 11:14:16 CDT CPT-07718 Visit 10:54:00 CDT CPT-81136 Visit 16:24:31 CDT CPT-54283 Sono OB comp > 14 weeks - XRAY USE ONLY 12:01:14 CDT CPT-54887 Visit 15:58:08 CDT CPT-58351 Visit 12:16:56 CDT CPT-08264X Sono OB comp <14 weeks ([place] Only) - X RAY USE ONLY 12:09:02 CDT CPT-72745 Spec Collection and Handling Fee 10:11:50 C DT CPT-83881 Visit 10:11:49 CDT CPT-J1050 Depo Provera 150 mg (Medroxyprogesterone) 08/30 16:06:30 STEAM GENERATING POWERPLANT 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
--- OUTSIDE RECORDS SUMMARY | 2020-01-04 23:45 | XMS REPORT | Clinical Summary ---
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 Abnormal finding on antenata l screening Sinusitis, acute frontal 461.1 Active Rosalina Se berg [employer] Acute frontal sinusitis GDM, diet controlled 648.80 Active Nayeli Duke [employer] Abnormal glucose tolerance complicating , childbirth, or the puerperium, unspecified as to episode of care or not applicable 30 weeks gestation of V28.9 Inactive 2017 Nayeli uDke [employer] Encounter for unspecified scre ening of mother [...] diseases care, delayed ICD-V23.7 Inactive Kristin Pagan [employer] NEED FOR PROPHYLACTIC VACCINATION WITH XTDRSLX-FIFLS-O UBELLA (MMR) VACCINE ICD-V06.4 Inactive Cintia Pagan [employer] Contraceptive management ICD-V25.9 Inactive Dionne Stewart MD follow-up, routine ICD-V24.2 Inacti ve Dionne Stewart MD Vaginal discharge ICD-623.5 Inactive Dionne spencer MD 29 weeks gestation of ICD-V28.9 Inac catalina Duke [employer] Medication List Medication Instructions Start Date Stop Date Generic Name NDC Status Provider Patient Instruction PROMETHAZINE HCL 12.5 MG ORAL TABLET 1 tablet by mouth every 4 hours as needed for nausea/vomiting PROMETHAZINE HCL 87475134382 Active Estela Cliftno LPN Active DIFLUCAN 150 MG ORAL TABLET 1 tablet by mouth daily 20 10/07/30 FLUCONAZOLE 38379557021 No Longer Active Megan Wise Active ACYCLOVIR 400 MG ORAL TABLET One tab PO BID until delivery 06/23 ACYCLOVIR 94295169355 No Longer Active Dionne Stewart MD A ctive SKLICE 0.5 % EXTERNAL LOTION Apply 4oz to dry hair and rinse of after 10 minutes IVERMECTIN 40788787412 No Longer Active Megan lowe Active TRUE METRIX BLOOD GLUCOSE TEST IN VITRO STRIP Check bl ood sugars four times a day as directed for gestational DM; O24.420 GLUC OSE BLOOD 70756958551 Active Nayeli Duke APRN Active TRUE METRIX GO GLUCOSE METER W/DEVICE KIT Check blood sugars as directed BLOOD GLUCOSE MONITORING SUPPL 19093211787 Active Nayeli Duke APRN Active LANCETS Test blood sugars as directed for gestational DM O24. 420 LANCETS 09120802843 Active Nayeli Duke APRN Activ e AUGMENTIN 875-125 MG ORAL TABLET 1 po BID x 10 days 09/06/11 AMOXICILLIN-POT CLAVULANATE 08194172877 No Longer Active Rosalina Bland [employer] Active FERROUS SULFATE 325 (65 FE) MG ORAL TABLET 1 tablet daily 5 FERROUS SULFATE 56058206547 Active Estela Clifton LPN Active LORATADINE 10 MG ORAL TABLET 1 tablet by mouth daily LORATADINE 75402054737 Active Dionne Stewart MD Active TYLENOL PM EXTRA STRENGTH 500-25 MG ORAL TABLET PRN 12/31 DIPHENHYDRAMINE-APAP (SLEEP) 78384129680 No Longer Active Dionne Stewart MD Active CONCEPT DHA 53.5-38-1 MG ORAL CAPSULE one tab PO daily CXZLQG-GYJMP-WBPS-FA-OMEGA 3 73441293109 Active Dionne Stewart MD Active FLAGYL 500 MG ORAL TABLET 1 tablet PO BID for 7 days 2 METRONIDAZOLE 93804397132 No Longer Active Dionne Stewart MD Active EQL FORMULA 28-0.8 MG ORAL TABLET 1 tablet daily 1 VIT-FE FUMARATE-FA 01919355017 No Longer Active Dionne Stewart MD A ctive CONCEPT DHA 53.5-38-1 MG ORAL CAPSULE one tab PO daily AWYTFU-OKXSN-HARC-FA-OMEGA 3 88157557356 No Longer Active Dionne Stewart MD Active CYCLOBENZAPRINE HCL 10 MG ORAL TABLET 1 tablet by mout h three times daily as needed for muscle spasm/pain CYCLOBENZAPRINE HCL 19184037425 No Longer Active Dionne Stewart MD Active TRI-SPRINTEC 0.18/0.215/0.25 MG-35 MCG ORAL TABLET 1 po qd a s directed NORGESTIM-ETH ESTRAD TRIPHASIC 47444567632 N o Longer Active Dionne Stewart MD Active FLAGYL 250 MG ORAL TABLET One tablet three times a day METRONIDAZOLE 70375858667 No Longer Active Cintia Pagan APRN Active [facility] 28-0.8 MG ORAL TABLET 04/10 VIT-FE FUMARATE-FA 58602028601 No Longer Active Dionne Stewart MD Active [facility] 28-0.8 MG ORAL TABLET 04/10 [facility] 28-0.8 MG ORAL TABLET VIT-FE FUMARATE-FA Inactive TRI-SPRINTEC 0.18/0.215/0.25 MG-35 MCG ORAL TABLET 1 po qd a s directed TRI-SPRINTEC 0.18/0.215/0.25 MG-35 MCG ORAL TABL ET 983607 NORGESTIM-ETH ESTRAD TRIPHASIC Inactive CYCLOBENZAPRINE HCL 10 MG ORAL TABLET 1 tablet by mout h three times daily as needed for muscle spasm/pain CYCLOBENZAP RINE HCL 10 MG ORAL TABLET 405260 CYCLOBENZAPRINE HCL Inactive CONCEPT DHA 53.5-38-1 MG ORAL CAPSULE one tab PO daily CONCEPT DHA 53.5-38-1 MG ORAL CAPSULE DZFOXK-ZJNFU-ZOWE-FA-O BILLIE 3 Inactive FLAGYL 500 MG ORAL TABLET 1 tablet PO BID for 7 days 2 FLAGYL 500 MG ORAL TABLET 045124 METRONIDAZOLE Inactive TYLENOL PM EXTRA STRENGTH 500-25 MG ORAL TABLET PRN 12/31 TYLENOL PM EXTRA STRENGTH 500-25 MG ORAL TABLET 9413109 DIPHEN HYDRAMINE-APAP (SLEEP) Inactive SKLICE 0.5 % EXTERNAL LOTION Apply 4oz to dry hair and rinse of after 10 minutes SKLICE 0.5 % EXTERNAL LOTION IVERMEC TIN Inactive DIFLUCAN 150 MG ORAL TABLET 1 tablet by mouth daily 10/07/30 DIFLUCAN 150 MG ORAL TABLET 311752 FLUCONAZOLE Inactive FLAGYL 250 MG ORAL TABLET One tablet three times a day FLAGYL 250 MG ORAL TABLET 262835 METRONIDAZOLE Inactive AUGMENTIN 875-125 MG ORAL TABLET 1 po BID x 10 days 09/06/11 AUGMENTIN 875-125 MG ORAL TABLET 666701 AMOXICILLIN-POT CLAVULANATE Inactive ACYCLOVIR 400 MG ORAL TABLET One tab PO BID until delivery 06/23 ACYCLOVIR 400 MG ORAL TABLET 400964 ACYCLOVIR Britt ctive Immunizations Vaccine Administration Date [...] 11 .0-15.0 platelet count 226 THOUSAND/UL 10*3/mm3 564-633 5574/05/11 mean platelet volume 10.3 fL 7.5-12.5 Blood [...] SCREEN, RBCW/REFL I , Drug Abuse Pnl -50/51588 - Blood bank antibody screen, serum NO ANTIBODIES DETECTED Lab Report: CBC, [id number] Gluc cari-1spec - Hematology leukocyte count, blood [...] 201 10^3/MM^3 10*3/mm3 142-424 Lab Report: Chlamydia/GC APTIMA/18390, H EPATITIS B S AG W/, HIV-1/2 Agn/ ... - Chemistry hepatitis B surface antigen NON-REACTIVE NON-RE ACTIVE rapid plasma reagin antibody titer NON-REACTIVE NON-REACTIVE Lab Report: Chlamydia/GC APTIMA/67835, H EPATITIS B S AG W/, HIV-1/2 Agn/ ... - Lab chlamydia DNA probe NOT DETECTED NOT DETECTED Lab Report: Chlamydia/GC APTIMA/80725, H EPATITIS B S AG W/, HIV-1/2 [...] N Encounters Code Encounter Date Provider Facility CPT-71419 Level 4 Est. Patient 15:39:57 CDT Nayeli herrera [facility] CPT-95074 Level 3 Est. Patient 17:26:51 CDT Rosalina berg [facility] Madeleine [facility] CPT-58599 Level 3 Est. Patient 17:31:05 ENGRAVER RUBBER [facility] Procedures Code Procedure Name Date Entry Date Standard Desc ription CPT-33171 Visit 10:15:43 ENGRAVER RUBBER CPT-38352 Visit 13:02:58 ENGRAVER RUBBER CPT-07472 Visit 12:11:18 ENGRAVER RUBBER CPT-32584 Visit 10:38:39 CDT CPT-32824 Visit 08:28:55 CDT CPT-56681 Addl Vx - Ix admin via ID IM or jet injects without counseling by physician 18:18:11 CDT CPT-49977 Boostrix Intramuscular Suspension 5-2.5-18.5 201 04/01/05 18:18:11 CDT CPT-67479 First Vx - Ix admin via ID I M or jet injects without counseling by physician 18:18:11 CDT CPT-83185 Flulaval Intramuscular Injectable 18:18:11 CDT CPT-28540 Fluzone Thim Free 36mo and older 11:16:54 C DT CPT-80321 Tdap 7yrs or > 11:16:53 CDT CPT-06569 Visit 11:16:53 CDT CPT-34307 Visit 11:14:16 CDT CPT-00570 Visit 10:54:00 CDT CPT-16398 Visit 16:24:31 CDT CPT-59932 Sono OB comp > 14 weeks - XRAY USE ONLY 12:01:14 CDT CPT-98527 Visit 15:58:08 CDT CPT-70796 Visit 12:16:56 CDT CPT-13489X Sono OB comp <14 weeks ([place] Only) - X RAY USE ONLY 12:09:02 CDT CPT-09265 Spec Collection and Handling Fee 10:11:50 C DT CPT-40880 Visit 10:11:49 CDT CPT-J1050 Depo Provera 150 mg (Medroxyprogesterone) 08/30 16:06:30 ENGRAVER RUBBER CPT-94230 Abx/Therapy Injection 16:06:30 ENGRAVER RUBBER CPT-J1050 Depo Provera 150 mg (Medroxyprogesterone) 08/30 15:39:17 ENGRAVER RUBBER CPT-45807 Visit 15:01:38 CDT CPT-46265 Sono OB comp > 14 weeks 16:05:04 CDT 03/18 CPT-20908 Spec Collection and Handling Fee 10:45:40 C DT CPT-20034 Visit 10:45:40 CDT
--- OUTSIDE RECORDS SUMMARY | 2020-01-04 23:45 | XMS REPORT | Clinical Summary ---
Author Author Admin, Giuliana Flores Organization [facility] Address Unknown Phone Unavailable Allergies, Adverse Reactions, [...] use disorder NEED FOR PROPHYLACTIC VACCINATION WITH PTSTUVD-TYBXI-B UBELLA (MMR) VACCINE V06.4 Resolved Cintia Pagan APRN Need for prophylactic vaccination with akiokaz-zukti-hsuqlbl [MMR] vaccine Contraceptive management V25.9 Resolved Taiwo [...] gestation of V28.9 Inactive 2017 Nayeli Duke RUG SETTER VELVET Encounter for unspecified scre ening of mother Abnormal biochemical finding on screening 796.5 20 09/03/10 Active Estela Clifton STRUCTURAL IRON WORKER Abnormal finding on antenata l screening Sinusitis, acute frontal 461.1 Active Rosalina Se berg RUG SETTER VELVET Acute frontal sinusitis GDM, diet controlled 648.80 Active Nayeli Duke RUG SETTER VELVET Abnormal glucose tolerance complicating , childbirth, or the puerperium, unspecified as to episode of care or not applicable 30 weeks gestation of V28.9 Inactive 2017 Nayeli Duke RUG SETTER VELVET Encounter for unspecified scre ening of mother [...] diseases care, delayed ICD-V23.7 Inactive Kristin Pagan RUG SETTER VELVET NEED FOR PROPHYLACTIC VACCINATION WITH PDUYPFD-LFTGX-X UBELLA (MMR) VACCINE ICD-V06.4 Inactive Cintia Pagan RUG SETTER VELVET Contraceptive management ICD-V25.9 Inactive Dionne Stewart MD follow-up, routine ICD-V24.2 Inacti ve Dionne Stewart MD Vaginal discharge ICD-623.5 Inactive Dionne spencer MD 29 weeks gestation of ICD-V28.9 Inac catalina Duke RUG SETTER VELVET Medication List Medication Instructions Start Date Stop Date Generic Name NDC Status Provider Patient Instruction PROMETHAZINE HCL 12.5 MG ORAL TABLET 1 tablet by mouth every 4 hours as needed for nausea/vomiting PROMETHAZINE HCL 73937491047 Active Estela Clifton LPN Active DIFLUCAN 150 MG ORAL TABLET 1 tablet by mouth daily 20 10/07/30 FLUCONAZOLE 70918754586 No Longer Active Megan Wise Active ACYCLOVIR 400 MG ORAL TABLET One tab PO BID until delivery 06/23 ACYCLOVIR 58144149325 No Longer Active Dionne Stewart MD A ctive SKLICE 0.5 % EXTERNAL LOTION Apply 4oz to dry hair and rinse of after 10 minutes IVERMECTIN 58671150296 No Longer Active Megan lowe Active TRUE METRIX BLOOD GLUCOSE TEST IN VITRO STRIP Check bl ood sugars four times a day as directed for gestational DM; O24.420 GLUC OSE BLOOD 23343816299 Active Nayeli Duke APRN Active TRUE METRIX GO GLUCOSE METER W/DEVICE KIT Check blood sugars as directed BLOOD GLUCOSE MONITORING SUPPL 16429505911 Active Nayeli Duke APRN Active LANCETS Test blood sugars as directed for gestational DM O24. 420 LANCETS 82935400369 Active Nayeli Duke APRN Activ e AUGMENTIN 875-125 MG ORAL TABLET 1 po BID x 10 days 09/06/11 AMOXICILLIN-POT CLAVULANATE 78567627732 No Longer Active Rosalina Bland RUG SETTER VELVET Active FERROUS SULFATE 325 (65 FE) MG ORAL TABLET 1 tablet daily 5 FERROUS SULFATE 47341084681 Active Estela Clifton LPN Active LORATADINE 10 MG ORAL TABLET 1 tablet by mouth daily LORATADINE 45083289325 Active Dionne Stewart MD Active TYLENOL PM EXTRA STRENGTH 500-25 MG ORAL TABLET PRN 12/31 DIPHENHYDRAMINE-APAP (SLEEP) 25585560842 No Longer Active Dionne Stewart MD Active CONCEPT DHA 53.5-38-1 MG ORAL CAPSULE one tab PO daily NPLBRH-CREWL-POXV-FA-OMEGA 3 28585489025 Active Dionne Stewart MD Active FLAGYL 500 MG ORAL TABLET 1 tablet PO BID for 7 days 2 METRONIDAZOLE 81376221089 No Longer Active Dionne Stewart MD Active EQL FORMULA 28-0.8 MG ORAL TABLET 1 tablet daily 1 VIT-FE FUMARATE-FA 12294569932 No Longer Active Dionne Stewart MD A ctive CONCEPT DHA 53.5-38-1 MG ORAL CAPSULE one tab PO daily UTMUPI-RQRXG-YRYC-FA-OMEGA 3 76998110963 No Longer Active Dionne Stewart MD Active CYCLOBENZAPRINE HCL 10 MG ORAL TABLET 1 tablet by mout h three times daily as needed for muscle spasm/pain CYCLOBENZAPRINE HCL 72564847533 No Longer Active Dionne Stewart MD Active TRI-SPRINTEC 0.18/0.215/0.25 MG-35 MCG ORAL TABLET 1 po qd a s directed NORGESTIM-ETH ESTRAD TRIPHASIC 16998908398 N o Longer Active Dionne Stewart MD Active FLAGYL 250 MG ORAL TABLET One tablet three times a day METRONIDAZOLE 00539614020 No Longer Active Cintia Pagan APRN Active [facility] 28-0.8 MG ORAL TABLET 04/10 VIT-FE FUMARATE-FA 16637581811 No Longer Active Dionne Stewart MD Active [facility] 28-0.8 MG ORAL TABLET 04/10 [facility] 28-0.8 MG ORAL TABLET VIT-FE FUMARATE-FA Inactive TRI-SPRINTEC 0.18/0.215/0.25 MG-35 MCG ORAL TABLET 1 po qd a s directed TRI-SPRINTEC 0.18/0.215/0.25 MG-35 MCG ORAL TABL ET 065923 NORGESTIM-ETH ESTRAD TRIPHASIC Inactive CYCLOBENZAPRINE HCL 10 MG ORAL TABLET 1 tablet by mout h three times daily as needed for muscle spasm/pain CYCLOBENZAP RINE HCL 10 MG ORAL TABLET 783449 CYCLOBENZAPRINE HCL Inactive CONCEPT DHA 53.5-38-1 MG ORAL CAPSULE one tab PO daily CONCEPT DHA 53.5-38-1 MG ORAL CAPSULE KRZJNF-WTQLF-GNRI-FA-O BILLIE 3 Inactive FLAGYL 500 MG ORAL TABLET 1 tablet PO BID for 7 days 2 FLAGYL 500 MG ORAL TABLET 780464 METRONIDAZOLE Inactive TYLENOL PM EXTRA STRENGTH 500-25 MG ORAL TABLET PRN 12/31 TYLENOL PM EXTRA STRENGTH 500-25 MG ORAL TABLET 5061422 DIPHEN HYDRAMINE-APAP (SLEEP) Inactive SKLICE 0.5 % EXTERNAL LOTION Apply 4oz to dry hair and rinse of after 10 minutes SKLICE 0.5 % EXTERNAL LOTION IVERMEC TIN Inactive DIFLUCAN 150 MG ORAL TABLET 1 tablet by mouth daily 10/07/30 DIFLUCAN 150 MG ORAL TABLET 505392 FLUCONAZOLE Inactive FLAGYL 250 MG ORAL TABLET One tablet three times a day FLAGYL 250 MG ORAL TABLET 764196 METRONIDAZOLE Inactive AUGMENTIN 875-125 MG ORAL TABLET 1 po BID x 10 days 09/06/11 AUGMENTIN 875-125 MG ORAL TABLET 591842 AMOXICILLIN-POT CLAVULANATE Inactive ACYCLOVIR 400 MG ORAL TABLET One tab PO BID until delivery 06/23 ACYCLOVIR 400 MG ORAL TABLET 106813 ACYCLOVIR Britt ctive Immunizations Vaccine Administration Date [...] 11 .0-15.0 platelet count 226 THOUSAND/UL 10*3/mm3 504-909 5764/05/11 mean platelet volume 10.3 fL 7.5-12.5 Blood [...] SCREEN, RBCW/REFL I , Drug Abuse Pnl -50/66783 - Blood bank antibody screen, serum NO ANTIBODIES DETECTED Lab Report: CBC, [id number] Gluc cari-1spec - Hematology leukocyte count, blood [...] 201 10^3/MM^3 10*3/mm3 142-424 Lab Report: Chlamydia/GC APTIMA/49383, H EPATITIS B S AG W/, HIV-1/2 Agn/ ... - Chemistry hepatitis B surface antigen NON-REACTIVE NON-RE ACTIVE rapid plasma reagin antibody titer NON-REACTIVE NON-REACTIVE Lab Report: Chlamydia/GC APTIMA/11652, H EPATITIS B S AG W/, HIV-1/2 Agn/ ... - Lab chlamydia DNA probe NOT DETECTED NOT DETECTED Lab Report: Chlamydia/GC APTIMA/23477, H EPATITIS B S AG W/, HIV-1/2 [...] N Encounters Code Encounter Date Provider Facility CPT-61527 Level 4 Est. Patient 15:39:57 CDT Nayeli herrera [facility] CPT-11242 Level 3 Est. Patient 17:26:51 CDT Rosalina berg [facility] Madeleine [facility] CPT-15922 Level 3 Est. Patient 17:31:05 INTERNAL COMBUSTION ENGINE SUBASSEMBLER [facility] Procedures Code Procedure Name Date Entry Date Standard Desc ription CPT-59711 Visit 10:15:43 INTERNAL COMBUSTION ENGINE SUBASSEMBLER CPT-37527 Visit 13:02:58 INTERNAL COMBUSTION ENGINE SUBASSEMBLER CPT-25030 Visit 12:11:18 INTERNAL COMBUSTION ENGINE SUBASSEMBLER CPT-11814 Visit 10:38:39 CDT CPT-13376 Visit 08:28:55 CDT CPT-23544 Addl Vx - Ix admin via ID IM or jet injects without counseling by physician 18:18:11 CDT CPT-99683 Boostrix Intramuscular Suspension 5-2.5-18.5 201 04/01/05 18:18:11 CDT CPT-36696 First Vx - Ix admin via ID I M or jet injects without counseling by physician 18:18:11 CDT CPT-15191 Flulaval Intramuscular Injectable 18:18:11 CDT CPT-77538 Fluzone Thim Free 36mo and older 11:16:54 C DT CPT-39777 Tdap 7yrs or > 11:16:53 CDT CPT-57715 Visit 11:16:53 CDT CPT-80894 Visit 11:14:16 CDT CPT-25459 Visit 10:54:00 CDT CPT-55253 Visit 16:24:31 CDT CPT-86322 Sono OB comp > 14 weeks - XRAY USE ONLY 12:01:14 CDT CPT-01385 Visit 15:58:08 CDT CPT-09816 Visit 12:16:56 CDT CPT-93396E Sono OB comp <14 weeks ([place] Only) - X RAY USE ONLY 12:09:02 CDT CPT-00293 Spec Collection and Handling Fee 10:11:50 C DT CPT-19847 Visit 10:11:49 CDT CPT-J1050 Depo Provera 150 mg (Medroxyprogesterone) 08/30 16:06:30 INTERNAL COMBUSTION ENGINE SUBASSEMBLER CPT-75492 Abx/Therapy Injection 16:06:30 INTERNAL COMBUSTION ENGINE SUBASSEMBLER CPT-J1050 Depo Provera 150 mg (Medroxyprogesterone) 08/30 15:39:17 INTERNAL COMBUSTION ENGINE SUBASSEMBLER CPT-73084 Visit 15:01:38 CDT CPT-34709 Sono OB comp > 14 weeks 16:05:04 CDT 03/18 CPT-03122 Spec Collection and Handling Fee 10:45:40 C DT CPT-02275 Visit 10:45:40 CDT
--- OUTSIDE RECORDS SUMMARY | 2020-01-04 23:46 | XMS REPORT | Clinical Summary ---
Author Author Admin, Giuliana Flores Organization [facility] Address Unknown Phone Unavailable Allergies, Adverse Reactions, [...] use disorder NEED FOR PROPHYLACTIC VACCINATION WITH CMYSEUD-OXCRZ-Y UBELLA (MMR) VACCINE V06.4 Resolved Cintia Pagan APRN Need for prophylactic vaccination with wkmtmze-tyxka-zmtqnop [MMR] vaccine Contraceptive management V25.9 Resolved Taiwo [...] gestation of V28.9 Inactive 2017 Nayeli Duke BIODIESEL PRODUCTION ASSOCIATE Encounter for unspecified scre ening of mother Abnormal biochemical finding on screening 796.5 20 09/03/[address] PHOTOGRAPHER Abnormal finding on antenata l screening Sinusitis, acute frontal 461.1 Active Rosalina berg BIODIESEL PRODUCTION ASSOCIATE Acute frontal sinusitis GDM, diet controlled 648.80 Active Nayeli Duke BIODIESEL PRODUCTION ASSOCIATE Abnormal glucose tolerance complicating , childbirth, or the puerperium, unspecified as to episode of care or not applicable 30 weeks gestation of V28.9 Inactive 2017 Nayeli Duke BIODIESEL PRODUCTION ASSOCIATE Encounter for unspecified scre ening of mother [...] diseases care, delayed ICD-V23.7 Inactive Kristin Pagan BIODIESEL PRODUCTION ASSOCIATE NEED FOR PROPHYLACTIC VACCINATION WITH NDSIJRY-ZSSTL-A UBELLA (MMR) VACCINE ICD-V06.4 Inactive Cintia Pagan BIODIESEL PRODUCTION ASSOCIATE Contraceptive management ICD-V25.9 Inactive Dionne Stewart MD follow-up, routine ICD-V24.2 Inacti ve Dionne Stewart MD Vaginal discharge ICD-623.5 Inactive Dionne spencer MD 29 weeks gestation of ICD-V28.9 Inac catalina Duke BIODIESEL PRODUCTION ASSOCIATE Medication List Medication Instructions Start Date Stop Date Generic Name NDC Status Provider Patient Instruction PROMETHAZINE HCL 12.5 MG ORAL TABLET 1 tablet by mouth every 4 hours as needed for nausea/vomiting PROMETHAZINE HCL 21640615618 Active Estela Clifton LPN Active DIFLUCAN 150 MG ORAL TABLET 1 tablet by mouth daily 20 10/07/30 FLUCONAZOLE 24772339172 No Longer Active Megan Wise Active ACYCLOVIR 400 MG ORAL TABLET One tab PO BID until delivery 06/23 ACYCLOVIR 32574808231 Active Dionne Stewart MD Active SKLICE 0.5 % EXTERNAL LOTION Apply 4oz to dry hair and rinse of after 10 minutes IVERMECTIN 53851284495 No Longer Active Megan lowe Active TRUE METRIX BLOOD GLUCOSE TEST IN VITRO STRIP Check bl ood sugars four times a day as directed for gestational DM; O24.420 GLUC OSE BLOOD 69372418077 Active Nayeli Duke APRN Active TRUE METRIX GO GLUCOSE METER W/DEVICE KIT Check blood sugars as directed BLOOD GLUCOSE MONITORING SUPPL 78864352060 Active Nayeli Duke APRN Active LANCETS Test blood sugars as directed for gestational DM O24. 420 LANCETS 07449244631 Active Nayeli Duke APRN Activ e AUGMENTIN 875-125 MG ORAL TABLET 1 po BID x 10 days 09/06/11 AMOXICILLIN-POT CLAVULANATE 89175233450 No Longer Active Rosalina Bland BIODIESEL PRODUCTION ASSOCIATE Active FERROUS SULFATE 325 (65 FE) MG ORAL TABLET 1 tablet daily 5 FERROUS SULFATE 07356208048 Active Estela Clifton LPN Active LORATADINE 10 MG ORAL TABLET 1 tablet by mouth daily LORATADINE 71926092469 Active Dionne Stewart MD Active TYLENOL PM EXTRA STRENGTH 500-25 MG ORAL TABLET PRN 12/31 DIPHENHYDRAMINE-APAP (SLEEP) 30063000750 No Longer Active Dionne Stewart MD Active CONCEPT DHA 53.5-38-1 MG ORAL CAPSULE one tab PO daily HLTKRG-GPABP-MXAC-FA-OMEGA 3 89407991582 Active Dionne Stewart MD Active FLAGYL 500 MG ORAL TABLET 1 tablet PO BID for 7 days 2 METRONIDAZOLE 50373515871 No Longer Active Dionne Stewart MD Active EQL FORMULA 28-0.8 MG ORAL TABLET 1 tablet daily 1 VIT-FE FUMARATE-FA 84507585414 No Longer Active Dionne Stewart MD A ctive CONCEPT DHA 53.5-38-1 MG ORAL CAPSULE one tab PO daily MRTKCB-DIXXO-BXSZ-FA-OMEGA 3 33103540587 No Longer Active Dionne Stewart MD Active CYCLOBENZAPRINE HCL 10 MG ORAL TABLET 1 tablet by mout h three times daily as needed for muscle spasm/pain CYCLOBENZAPRINE HCL 55815060570 No Longer Active Dionne Stewart MD Active TRI-SPRINTEC 0.18/0.215/0.25 MG-35 MCG ORAL TABLET 1 po qd a s directed NORGESTIM-ETH ESTRAD TRIPHASIC 46839069908 N o Longer Active Dionne Stewart MD Active FLAGYL 250 MG ORAL TABLET One tablet three times a day METRONIDAZOLE 12185867671 No Longer Active Cintia Pagan APRN Active [facility] 28-0.8 MG ORAL TABLET 04/10 VIT-FE FUMARATE-FA 52315179759 No Longer Active Dionne Stewart MD Active [facility] 28-0.8 MG ORAL TABLET 04/10 [facility] 28-0.8 MG ORAL TABLET VIT-FE FUMARATE-FA Inactive TRI-SPRINTEC 0.18/0.215/0.25 MG-35 MCG ORAL TABLET 1 po qd a s directed TRI-SPRINTEC 0.18/0.215/0.25 MG-35 MCG ORAL TABL ET 954725 NORGESTIM-ETH ESTRAD TRIPHASIC Inactive CYCLOBENZAPRINE HCL 10 MG ORAL TABLET 1 tablet by mout h three times daily as needed for muscle spasm/pain CYCLOBENZAP RINE HCL 10 MG ORAL TABLET 738244 CYCLOBENZAPRINE HCL Inactive CONCEPT DHA 53.5-38-1 MG ORAL CAPSULE one tab PO daily CONCEPT DHA 53.5-38-1 MG ORAL CAPSULE KHCMZH-TFKOK-OQHQ-FA-O BILLIE 3 Inactive FLAGYL 500 MG ORAL TABLET 1 tablet PO BID for 7 days 2 FLAGYL 500 MG ORAL TABLET 572745 METRONIDAZOLE Inactive TYLENOL PM EXTRA STRENGTH 500-25 MG ORAL TABLET PRN 12/31 TYLENOL PM EXTRA STRENGTH 500-25 MG ORAL TABLET 4642433 DIPHEN HYDRAMINE-APAP (SLEEP) Inactive SKLICE 0.5 % EXTERNAL LOTION Apply 4oz to dry hair and rinse of after 10 minutes SKLICE 0.5 % EXTERNAL LOTION IVERMEC TIN Inactive DIFLUCAN 150 MG ORAL TABLET 1 tablet by mouth daily 10/07/30 DIFLUCAN 150 MG ORAL TABLET 293098 FLUCONAZOLE Inactive FLAGYL 250 MG ORAL TABLET One tablet three times a day FLAGYL 250 MG ORAL TABLET 725318 METRONIDAZOLE Inactive AUGMENTIN 875-125 MG ORAL TABLET 1 po BID x 10 days 09/06/11 AUGMENTIN 875-125 MG ORAL TABLET 451621 AMOXICILLIN-POT CLAVULANATE Inactive Immunizations Vaccine Administration Date [...] 11 .0-15.0 platelet count 226 THOUSAND/UL 10*3/mm3 305-314 9553/05/11 mean platelet volume 10.3 fL 7.5-12.5 Blood [...] SCREEN, RBCW/REFL I , Drug Abuse Pnl 10-50/31073 - Blood bank antibody screen, serum NO ANTIBODIES DETECTED Lab Report: CBC, [id number] Gluc cari-1spec - Hematology leukocyte count, blood [...] 201 10^3/MM^3 10*3/mm3 142-424 Lab Report: Chlamydia/GC APTIMA/33737, H EPATITIS B S AG W/, HIV-1/2 Agn/ ... - Chemistry hepatitis B surface antigen NON-REACTIVE NON-RE ACTIVE rapid plasma reagin antibody titer NON-REACTIVE NON-REACTIVE Lab Report: Chlamydia/GC APTIMA/81334, H EPATITIS B S AG W/, HIV-1/2 Agn/ ... - Lab chlamydia DNA probe NOT DETECTED NOT DETECTED Lab Report: Chlamydia/GC APTIMA/75855, H EPATITIS B S AG W/, HIV-1/2 [...] N Encounters Code Encounter Date Provider Facility CPT-98526 Level 4 Est. Patient 15:39:57 CDT Nayeli herrera [facility] CPT-98838 Level 3 Est. Patient 17:26:51 CDT Rosalina berg [facility] CPT-96761 Level 3 Est. Patient 17:31:05 BIOCHEMISTRY TECHNICIAN Cintia sommer [facility] Procedures Code Procedure Name Date Entry Date Standard Desc ription CPT-87231 Visit 10:15:43 BIOCHEMISTRY TECHNICIAN CPT-31367 Visit 13:02:58 BIOCHEMISTRY TECHNICIAN CPT-44231 Visit 12:11:18 BIOCHEMISTRY TECHNICIAN CPT-68439 Visit 10:38:39 CDT CPT-42743 Visit 08:28:55 CDT CPT-96059 Addl Vx - Ix admin via ID IM or jet injects without counseling by physician 18:18:11 CDT CPT-65482 Boostrix Intramuscular Suspension 5-2.5-18.5 201 04/01/05 18:18:11 CDT CPT-87239 First Vx - Ix admin via ID I M or jet injects without counseling by physician 18:18:11 CDT CPT-26582 Flulaval Intramuscular Injectable 18:18:11 CDT CPT-60294 Fluzone Thim Free 36mo and older 11:16:54 C DT CPT-43055 Tdap 7yrs or > 11:16:53 CDT CPT-84909 Visit 11:16:53 CDT CPT-76386 Visit 11:14:16 CDT CPT-07446 Visit 10:54:00 CDT CPT-69409 Visit 16:24:31 CDT CPT-16180 Sono OB comp > 14 weeks - XRAY USE ONLY 12:01:14 CDT CPT-87665 Visit 15:58:08 CDT CPT-91844 Visit 12:16:56 CDT CPT-82204G Sono OB comp <14 weeks ([place] Only) - X RAY USE ONLY 12:09:02 CDT CPT-58785 Spec Collection and Handling Fee 10:11:50 C DT CPT-45477 Visit 10:11:49 CDT CPT-J1050 Depo Provera 150 mg (Medroxyprogesterone) 08/30 16:06:30 BIOCHEMISTRY TECHNICIAN CPT-57889 Abx/Therapy Injection 16:06:30 BIOCHEMISTRY TECHNICIAN CPT-J1050 Depo Provera 150 mg (Medroxyprogesterone) 08/30 15:39:17 BIOCHEMISTRY TECHNICIAN CPT-75890 Visit 15:01:38 CDT CPT-62096 Sono OB comp > 14 weeks 16:05:04 CDT 03/18 CPT-33088 Spec Collection and Handling Fee 10:45:40 C DT CPT-55657 Visit 10:45:40 CDT
--- OUTSIDE RECORDS SUMMARY | 2020-01-04 23:46 | XMS REPORT | Clinical Summary ---
Author Author Admin, Giuliana Flores Organization [facility] Address Unknown Phone Unavailable Allergies, Adverse [...] use disorder NEED FOR PROPHYLACTIC VACCINATION WITH VTPMVAS-YOWRG-Q UBELLA (MMR) VACCINE V06.4 Resolved Cintia Pagan APRN Need for prophylactic vaccination with agchhyk-xmfbn-gddceow [MMR] vaccine Contraceptive management V25.9 Resolved Taiwo [...] gestation of V28.9 Inactive 2017 Nayeli Duke ELECTRIC CRANE OPERATOR Encounter for unspecified scre ening of mother Abnormal biochemical finding on screening 796.5 20 09/03/10 Active Estela Clifton PROFILER HAND Abnormal finding on antenata l screening Sinusitis, acute frontal 461.1 Active Rosalina berg ELECTRIC CRANE OPERATOR Acute frontal sinusitis GDM, diet controlled 648.80 Active Nayeli Duke ELECTRIC CRANE OPERATOR Abnormal glucose tolerance complicating , childbirth, or the puerperium, unspecified as to episode of care or not applicable 30 weeks gestation of V28.9 Inactive 2017 Nayeli Duke ELECTRIC CRANE OPERATOR Encounter for unspecified scre ening of [...] diseases care, delayed ICD-V23.7 Inactive Kristin Pagan ELECTRIC CRANE OPERATOR NEED FOR PROPHYLACTIC VACCINATION WITH NAZMCRN-WVHPB-A UBELLA (MMR) VACCINE ICD-V06.4 Inactive Cintia Pagan ELECTRIC CRANE OPERATOR Contraceptive management ICD-V25.9 Inactive Dionne Stewart MD follow-up, routine ICD-V24.2 Inacti ve Dionne Stewart MD Vaginal discharge ICD-623.5 Inactive Dionne spencer MD 29 weeks gestation of ICD-V28.9 Inac catalina Duke ELECTRIC CRANE OPERATOR Medication List Medication Instructions Start Date Stop Date Generic Name NDC Status Provider Patient Instruction PROMETHAZINE HCL 12.5 MG ORAL TABLET 1 tablet by mouth every 4 hours as needed for nausea/vomiting PROMETHAZINE HCL 89860909962 Active Estela Clifton LPN Active DIFLUCAN 150 MG ORAL TABLET 1 tablet by mouth daily 20 10/07/30 FLUCONAZOLE 36213270351 No Longer Active Megan Wise Active ACYCLOVIR 400 MG ORAL TABLET One tab PO BID until delivery 06/23 ACYCLOVIR 73227921270 Active Dionne Stewart MD Active SKLICE 0.5 % EXTERNAL LOTION Apply 4oz to dry hair and rinse of after 10 minutes IVERMECTIN 59175981301 No Longer Active Megan lowe Active TRUE METRIX BLOOD GLUCOSE TEST IN VITRO STRIP Check bl ood sugars four times a day as directed for gestational DM; O24.420 GLUC OSE BLOOD 97036382606 Active Nayeli Duke APRN Active TRUE METRIX GO GLUCOSE METER W/DEVICE KIT Check blood sugars as directed BLOOD GLUCOSE MONITORING SUPPL 96871810227 Active Nayeli Duke APRN Active LANCETS Test blood sugars as directed for gestational DM O24. 420 LANCETS 71340800713 Active Nayeli Duke APRN Activ e AUGMENTIN 875-125 MG ORAL TABLET 1 po BID x 10 days 09/06/11 AMOXICILLIN-POT CLAVULANATE 63666363269 No Longer Active Rosalina Bland ELECTRIC CRANE OPERATOR Active FERROUS SULFATE 325 (65 FE) MG ORAL TABLET 1 tablet daily 5 FERROUS SULFATE 93475965542 Active Estela Clifton LPN Active LORATADINE 10 MG ORAL TABLET 1 tablet by mouth daily LORATADINE 35901474086 Active Dionne Stewart MD Active TYLENOL PM EXTRA STRENGTH 500-25 MG ORAL TABLET PRN 12/31 DIPHENHYDRAMINE-APAP (SLEEP) 20310002253 No Longer Active Dionne Stewart MD Active CONCEPT DHA 53.5-38-1 MG ORAL CAPSULE one tab PO daily WBYXEB-IJOLE-URLX-FA-OMEGA 3 22869111518 Active Dionne Stewart MD Active FLAGYL 500 MG ORAL TABLET 1 tablet PO BID for 7 days 2 METRONIDAZOLE 75645028340 No Longer Active Dionne Stewart MD Active EQL FORMULA 28-0.8 MG ORAL TABLET 1 tablet daily 1 VIT-FE FUMARATE-FA 08589402755 No Longer Active Dionne Stewart MD A ctive CONCEPT DHA 53.5-38-1 MG ORAL CAPSULE one tab PO daily XYVHZE-YROKC-DTFB-FA-OMEGA 3 39304472371 No Longer Active Dionne Stewart MD Active CYCLOBENZAPRINE HCL 10 MG ORAL TABLET 1 tablet by mout h three times daily as needed for muscle spasm/pain CYCLOBENZAPRINE HCL 20846884593 No Longer Active Dionne Stewart MD Active TRI-SPRINTEC 0.18/0.215/0.25 MG-35 MCG ORAL TABLET 1 po qd a s directed NORGESTIM-ETH ESTRAD TRIPHASIC 30755000493 N o Longer Active Dionne Stewart MD Active FLAGYL 250 MG ORAL TABLET One tablet three times a day METRONIDAZOLE 06174899623 No Longer Active Cintia Pagan APRN Active [facility] 28-0.8 MG ORAL TABLET 04/10 VIT-FE FUMARATE-FA 73838862318 No Longer Active Dionne Stewart MD Active [facility] 28-0.8 MG ORAL TABLET 04/10 [facility] 28-0.8 MG ORAL TABLET VIT-FE FUMARATE-FA Inactive TRI-SPRINTEC 0.18/0.215/0.25 MG-35 MCG ORAL TABLET 1 po qd a s directed TRI-SPRINTEC 0.18/0.215/0.25 MG-35 MCG ORAL TABL ET 382800 NORGESTIM-ETH ESTRAD TRIPHASIC Inactive CYCLOBENZAPRINE HCL 10 MG ORAL TABLET 1 tablet by mout h three times daily as needed for muscle spasm/pain CYCLOBENZAP RINE HCL 10 MG ORAL TABLET 952402 CYCLOBENZAPRINE HCL Inactive CONCEPT DHA 53.5-38-1 MG ORAL CAPSULE one tab PO daily CONCEPT DHA 53.5-38-1 MG ORAL CAPSULE KIGPBO-ZCTHN-GXVM-FA-O BILLIE 3 Inactive FLAGYL 500 MG ORAL TABLET 1 tablet PO BID for 7 days 2 FLAGYL 500 MG ORAL TABLET 412797 METRONIDAZOLE Inactive TYLENOL PM EXTRA STRENGTH 500-25 MG ORAL TABLET PRN 12/31 TYLENOL PM EXTRA STRENGTH 500-25 MG ORAL TABLET 3782928 DIPHEN HYDRAMINE-APAP (SLEEP) Inactive SKLICE 0.5 % EXTERNAL LOTION Apply 4oz to dry hair and rinse of after 10 minutes SKLICE 0.5 % EXTERNAL LOTION IVERMEC TIN Inactive DIFLUCAN 150 MG ORAL TABLET 1 tablet by mouth daily 10/07/30 DIFLUCAN 150 MG ORAL TABLET 626919 FLUCONAZOLE Inactive FLAGYL 250 MG ORAL TABLET One tablet three times a day FLAGYL 250 MG ORAL TABLET 424297 METRONIDAZOLE Inactive AUGMENTIN 875-125 MG ORAL TABLET 1 po BID x 10 days 09/06/11 AUGMENTIN 875-125 MG ORAL TABLET 599555 AMOXICILLIN-POT CLAVULANATE Inactive Immunizations Vaccine Administration Date [...] 11 .0-15.0 platelet count 226 THOUSAND/UL 10*3/mm3 115-703 2350/05/11 mean platelet volume 10.3 fL 7.5-12.5 Blood [...] SCREEN, RBCW/REFL I , Drug Abuse Pnl 10-50/84539 - Blood bank antibody screen, serum NO ANTIBODIES DETECTED Lab Report: CBC, [id number] Gluc cari-1spec - Hematology leukocyte count, blood [...] 201 10^3/MM^3 10*3/mm3 142-424 Lab Report: Chlamydia/GC APTIMA/44718, H EPATITIS B S AG W/, HIV-1/2 Agn/ ... - Chemistry hepatitis B surface antigen NON-REACTIVE NON-RE ACTIVE rapid plasma reagin antibody titer NON-REACTIVE NON-REACTIVE Lab Report: Chlamydia/GC APTIMA/41398, H EPATITIS B S AG W/, HIV-1/2 Agn/ ... - Lab chlamydia DNA probe NOT DETECTED NOT DETECTED Lab Report: Chlamydia/GC APTIMA/22943, H EPATITIS B S AG W/, HIV-1/2 [...] N Encounters Code Encounter Date Provider Facility CPT-59057 Level 4 Est. Patient 15:39:57 CDT Nayeli herrera [facility] CPT-94930 Level 3 Est. Patient 17:26:51 CDT Rosalina berg [facility] CPT-07497 Level 3 Est. Patient 17:31:05 MANAGEMENT EXPERT Cintia sommer [facility] Procedures Code Procedure Name Date Entry Date Standard Desc ription CPT-77488 Visit 10:15:43 MANAGEMENT EXPERT CPT-77688 Visit 13:02:58 MANAGEMENT EXPERT CPT-70112 Visit 12:11:18 MANAGEMENT EXPERT CPT-59654 Visit 10:38:39 CDT CPT-56661 Visit 08:28:55 CDT CPT-76352 Addl Vx - Ix admin via ID IM or jet injects without counseling by physician 18:18:11 CDT CPT-59456 Boostrix Intramuscular Suspension 5-2.5-18.5 201 04/01/05 18:18:11 CDT CPT-87844 First Vx - Ix admin via ID I M or jet injects without counseling by physician 18:18:11 CDT CPT-44359 Flulaval Intramuscular Injectable 18:18:11 CDT CPT-15335 Fluzone Thim Free 36mo and older 11:16:54 C DT CPT-61285 Tdap 7yrs or > 11:16:53 CDT CPT-41792 Visit 11:16:53 CDT CPT-77599 Visit 11:14:16 CDT CPT-14452 Visit 10:54:00 CDT CPT-49360 Visit 16:24:31 CDT CPT-09768 Sono OB comp > 14 weeks - XRAY USE ONLY 12:01:14 CDT CPT-35245 Visit 15:58:08 CDT CPT-01733 Visit 12:16:56 CDT CPT-57714D Sono OB comp <14 weeks ([facility] Only) - X RAY USE ONLY 12:09:02 CDT CPT-76192 Spec Collection and Handling Fee 10:11:50 C DT CPT-18052 Visit 10:11:49 CDT CPT-J1050 Depo Provera 150 mg (Medroxyprogesterone) 08/30 16:06:30 MANAGEMENT EXPERT CPT-49954 Abx/Therapy Injection 16:06:30 MANAGEMENT EXPERT CPT-J1050 Depo Provera 150 mg (Medroxyprogesterone) 08/30 15:39:17 MANAGEMENT EXPERT CPT-00730 Visit 15:01:38 CDT CPT-23939 Sono OB comp > 14 weeks 16:05:04 CDT 03/18 CPT-17683 Spec Collection and Handling Fee 10:45:40 C DT CPT-12165 Visit 10:45:40 CDT
--- OUTSIDE RECORDS SUMMARY | 2020-01-04 23:46 | XMS REPORT | Clinical Summary ---
Author Author Admin, Giuliana Flores Organization [facility] Address Unknown Phone Unavailable Allergies, [...] use disorder NEED FOR PROPHYLACTIC VACCINATION WITH YAZHHBW-CJDHV-U UBELLA (MMR) VACCINE V06.4 Resolved Cintia Pagan APRN Need for prophylactic vaccination with qagckem-oypha-ilpygjm [MMR] vaccine Contraceptive management V25.9 Resolved Taiwo [...] gestation of V28.9 Inactive 2017 Nayeli Duke CAN TENDER Encounter for unspecified scre ening of mother Abnormal biochemical finding on screening 796.5 20 09/03/10 Active Estela Clifton ELECTRIC METER REPAIRER HELPER Abnormal finding on antenata l screening Sinusitis, acute frontal 461.1 Active Rosalina berg CAN TENDER Acute frontal sinusitis GDM, diet controlled 648.80 Active Nayeli Duke CAN TENDER Abnormal glucose tolerance complicating , childbirth, or the puerperium, unspecified as to episode of care or not applicable 30 weeks gestation of V28.9 Inactive 2017 Nayeli Duke CAN TENDER Encounter for unspecified scre ening of mother 31 weeks gestation of V28.9 Inactive 2017 Dionne Setwart MD Encounter for unspecified scre ening of [...] diseases care, delayed ICD-V23.7 Inactive Kristin Pagan CAN TENDER NEED FOR PROPHYLACTIC VACCINATION WITH VNAPATU-YALEE-B UBELLA (MMR) VACCINE ICD-V06.4 Inactive Cintia Pagan CAN TENDER Contraceptive management ICD-V25.9 Inactive Dionne Stewart MD follow-up, routine ICD-V24.2 Inacti ve Dionne Stewart MD Vaginal discharge ICD-623.5 Inactive Dionne spencer MD 29 weeks gestation of ICD-V28.9 Inac catalina Duke CAN TENDER Medication List Medication Instructions Start Date Stop Date Generic Name NDC Status Provider Patient Instruction PROMETHAZINE HCL 12.5 MG ORAL TABLET 1 tablet by mouth every 4 hours as needed for nausea/vomiting PROMETHAZINE HCL 44973879222 Active Estela Clifton LPN Active DIFLUCAN 150 MG ORAL TABLET 1 tablet by mouth daily 20 10/07/30 FLUCONAZOLE 78645299923 No Longer Active Megan Wise Active ACYCLOVIR 400 MG ORAL TABLET One tab PO BID until delivery 06/23 ACYCLOVIR 75104805431 Active Dionne Stewart MD Active SKLICE 0.5 % EXTERNAL LOTION Apply 4oz to dry hair and rinse of after 10 minutes IVERMECTIN 17063695360 No Longer Active Megan lowe Active TRUE METRIX BLOOD GLUCOSE TEST IN VITRO STRIP Check bl ood sugars four times a day as directed for gestational DM; O24.420 GLUC OSE BLOOD 56105607114 Active Nayeli Duke APRN Active TRUE METRIX GO GLUCOSE METER W/DEVICE KIT Check blood sugars as directed BLOOD GLUCOSE MONITORING SUPPL 00642934154 Active Nayeli Duke APRN Active LANCETS Test blood sugars as directed for gestational DM O24. 420 LANCETS 46975333230 Active Nayeli Duke APRN Activ e AUGMENTIN 875-125 MG ORAL TABLET 1 po BID x 10 days 09/06/11 AMOXICILLIN-POT CLAVULANATE 15309805714 No Longer Active Rosalina Bland CAN TENDER Active FERROUS SULFATE 325 (65 FE) MG ORAL TABLET 1 tablet daily 5 FERROUS SULFATE 18843691685 Active Estela Clifton LPN Active LORATADINE 10 MG ORAL TABLET 1 tablet by mouth daily LORATADINE 50705388570 Active Dionne Stewart MD Active TYLENOL PM EXTRA STRENGTH 500-25 MG ORAL TABLET PRN 12/31 DIPHENHYDRAMINE-APAP (SLEEP) 49365375903 No Longer Active Dionne Stewart MD Active CONCEPT DHA 53.5-38-1 MG ORAL CAPSULE one tab PO daily TGEXYM-ZYESY-NYCO-FA-OMEGA 3 36990390226 Active Dionne Stewart MD Active FLAGYL 500 MG ORAL TABLET 1 tablet PO BID for 7 days 2 METRONIDAZOLE 05199872761 No Longer Active Dionne Stewart MD Active EQL FORMULA 28-0.8 MG ORAL TABLET 1 tablet daily 1 VIT-FE FUMARATE-FA 95244743810 No Longer Active Dionne Stewart MD A ctive CONCEPT DHA 53.5-38-1 MG ORAL CAPSULE one tab PO daily JOEPIR-QRRJL-LEFT-FA-OMEGA 3 65429401410 No Longer Active Dionne Stewart MD Active CYCLOBENZAPRINE HCL 10 MG ORAL TABLET 1 tablet by mout h three times daily as needed for muscle spasm/pain CYCLOBENZAPRINE HCL 82017477811 No Longer Active Dionne Stewart MD Active TRI-SPRINTEC 0.18/0.215/0.25 MG-35 MCG ORAL TABLET 1 po qd a s directed NORGESTIM-ETH ESTRAD TRIPHASIC 93199890580 N o Longer Active Dionne Stewart MD Active FLAGYL 250 MG ORAL TABLET One tablet three times a day METRONIDAZOLE 48498330111 No Longer Active Cintia Pagan APRN Active [facility] 28-0.8 MG ORAL TABLET 04/10 VIT-FE FUMARATE-FA 59019998691 No Longer Active Dionne Stewart MD Active [facility] 28-0.8 MG ORAL TABLET 04/10 [facility] 28-0.8 MG ORAL TABLET VIT-FE FUMARATE-FA Inactive TRI-SPRINTEC 0.18/0.215/0.25 MG-35 MCG ORAL TABLET 1 po qd a s directed TRI-SPRINTEC 0.18/0.215/0.25 MG-35 MCG ORAL TABL ET 563587 NORGESTIM-ETH ESTRAD TRIPHASIC Inactive CYCLOBENZAPRINE HCL 10 MG ORAL TABLET 1 tablet by mout h three times daily as needed for muscle spasm/pain CYCLOBENZAP RINE HCL 10 MG ORAL TABLET 932905 CYCLOBENZAPRINE HCL Inactive CONCEPT DHA 53.5-38-1 MG ORAL CAPSULE one tab PO daily CONCEPT DHA 53.5-38-1 MG ORAL CAPSULE VOJMTJ-VBTOZ-STIA-FA-O BILLIE 3 Inactive FLAGYL 500 MG ORAL TABLET 1 tablet PO BID for 7 days 2 FLAGYL 500 MG ORAL TABLET 853154 METRONIDAZOLE Inactive TYLENOL PM EXTRA STRENGTH 500-25 MG ORAL TABLET PRN 12/31 TYLENOL PM EXTRA STRENGTH 500-25 MG ORAL TABLET 4050374 DIPHEN HYDRAMINE-APAP (SLEEP) Inactive SKLICE 0.5 % EXTERNAL LOTION Apply 4oz to dry hair and rinse of after 10 minutes SKLICE 0.5 % EXTERNAL LOTION IVERMEC TIN Inactive DIFLUCAN 150 MG ORAL TABLET 1 tablet by mouth daily 10/07/30 DIFLUCAN 150 MG ORAL TABLET 179245 FLUCONAZOLE Inactive FLAGYL 250 MG ORAL TABLET One tablet three times a day FLAGYL 250 MG ORAL TABLET 551744 METRONIDAZOLE Inactive AUGMENTIN 875-125 MG ORAL TABLET 1 po BID x 10 days 09/06/11 AUGMENTIN 875-125 MG ORAL TABLET 757604 AMOXICILLIN-POT CLAVULANATE Inactive Immunizations Vaccine Administration Date [...] 11 .0-15.0 platelet count 226 THOUSAND/UL 10*3/mm3 048-896 7572/05/11 mean platelet volume 10.3 fL 7.5-12.5 Lab [...] SCREEN, RBCW/REFL I , Drug Abuse Pnl 10-50/35362 - Blood bank antibody screen, serum NO ANTIBODIES DETECTED Lab Report: CBC, [id number] Gluc cari-1spec - Hematology hemoglobin, blood 10.5 g/dL 12.0-16.0 hematocrit, blood 31.1 % 37.0-47.0 mean corpuscular volume, RBC 94 fL 80-97 mean corpuscular hemoglobin, RBC 31.9 pg 27. 0-31.2 leukocyte count, blood 10.2 10^3/MM^3 10*3/mm3 4.6-10.2 mean corpuscular hemoglobin concentration, RBC 33.9 G/DL % 31.8-35.4 red blood cell distribution width 11.1 % 13 .0-18.0 platelet count 201 10^3/MM^3 10*3/mm3 402-361 0121/09/21 erythrocyte (RBC) count 3.30 10^6/MM^3 10*6/mm3 3.80-5.8 0 Lab Report: Chlamydia/GC APTIMA/87883, H EPATITIS B S AG W/, HIV-1/2 Agn/ ... - Chemistry hepatitis B surface antigen NON-REACTIVE NON-RE ACTIVE rapid plasma reagin antibody titer NON-REACTIVE NON-REACTIVE Lab Report: Chlamydia/GC APTIMA/38615, H EPATITIS B S AG W/, HIV-1/2 Agn/ ... - Lab chlamydia DNA probe NOT DETECTED NOT DETECTED Lab Report: Chlamydia/GC APTIMA/[id number], H EPATITIS B S AG W/, HIV-1/2 [...] N Encounters Code Encounter Date Provider Facility CPT-13487 Level 4 Est. Patient 15:39:57 CDT Nayeli herrera [facility] CPT-74225 Level 3 Est. Patient 17:26:51 CDT Rosalina berg [facility] CPT-42648 Level 3 Est. Patient 17:31:05 ADVISOR CONSULTANT Cintia sommer [facility] Procedures Code Procedure Name Date Entry Date Standard Desc ription CPT-47941 Visit 10:15:43 ADVISOR CONSULTANT CPT-90483 Visit 13:02:58 ADVISOR CONSULTANT CPT-87919 Visit 12:11:18 ADVISOR CONSULTANT CPT-42901 Visit 10:38:39 CDT CPT-93180 Visit 08:28:55 CDT CPT-57115 Addl Vx - Ix admin via ID IM or jet injects without counseling by physician 18:18:11 CDT CPT-44102 Boostrix Intramuscular Suspension 5-2.5-18.5 201 04/01/05 18:18:11 CDT CPT-67697 First Vx - Ix admin via ID I M or jet injects without counseling by physician 18:18:11 CDT CPT-21115 Flulaval Intramuscular Injectable 18:18:11 CDT CPT-60211 Fluzone Thim Free 36mo and older 11:16:54 C DT CPT-30330 Tdap 7yrs or > 11:16:53 CDT CPT-40181 Visit 11:16:53 CDT CPT-27241 Visit 11:14:16 CDT CPT-87156 Visit 10:54:00 CDT CPT-11056 Visit 16:24:31 CDT CPT-55641 Sono OB comp > 14 weeks - XRAY USE ONLY 12:01:14 CDT CPT-72982 Visit 15:58:08 CDT CPT-49387 Visit 12:16:56 CDT CPT-47821Y Sono OB comp <14 weeks ([place] Only) - X RAY USE ONLY 12:09:02 CDT CPT-69500 Spec Collection and Handling Fee 10:11:50 C DT CPT-04628 Visit 10:11:49 CDT CPT-J1050 Depo Provera 150 mg (Medroxyprogesterone) 08/30 16:06:30 ADVISOR CONSULTANT CPT-80060 Abx/Therapy Injection 16:06:30 ADVISOR CONSULTANT CPT-J1050 Depo Provera 150 mg (Medroxyprogesterone) 08/30 15:39:17 ADVISOR CONSULTANT CPT-12196 Visit 15:01:38 CDT CPT-63882 Sono OB comp > 14 weeks 16:05:04 CDT 03/18 CPT-77787 Spec Collection and Handling Fee 10:45:40 C DT CPT-73351 Visit 10:45:40 CDT
--- OUTSIDE RECORDS SUMMARY | 2020-01-04 23:47 | XMS REPORT | Clinical Summary ---
Author Author Admin, Giuliana Flores Organization [facility] Address Unknown Phone Unavailable Allergies, Adverse Reactions, [...] use disorder NEED FOR PROPHYLACTIC VACCINATION WITH WMYOSBB-CUSHC-F UBELLA (MMR) VACCINE V06.4 Resolved Cintia Pagan APRN Need for prophylactic vaccination with lnjrkfy-ggdyt-sqjgyyw [MMR] vaccine Contraceptive management V25.9 Resolved Taiwo [...] gestation of V28.9 Inactive 2017 Nayeli Duke ACCOUNTS ADMINISTRATOR Encounter for unspecified scre ening of mother Abnormal biochemical finding on screening 796.5 20 09/03/10 Active Estela Clifton CUSTOMER SERVICE RECEPTIONIST Abnormal finding on antenata l screening Sinusitis, acute frontal 461.1 Active Rosalina Se berg ACCOUNTS ADMINISTRATOR Acute frontal sinusitis GDM, diet controlled 648.80 Active Nayeli Duke ACCOUNTS ADMINISTRATOR Abnormal glucose tolerance complicating , childbirth, or the puerperium, unspecified as to episode of care or not applicable 30 weeks gestation of V28.9 Inactive 2017 Nayeli Duke ACCOUNTS ADMINISTRATOR Encounter for unspecified scre ening of mother [...] diseases care, delayed ICD-V23.7 Inactive Kristin Pagan ACCOUNTS ADMINISTRATOR NEED FOR PROPHYLACTIC VACCINATION WITH TIIDTLN-ZRAUF-P UBELLA (MMR) VACCINE ICD-V06.4 Inactive Cintia Pagan ACCOUNTS ADMINISTRATOR Contraceptive management ICD-V25.9 Inactive Dionne Stewart MD follow-up, routine ICD-V24.2 Inacti ve Dionne Stewart MD Vaginal discharge ICD-623.5 Inactive Dionne spencer MD 29 weeks gestation of ICD-V28.9 Inac catalina Duke ACCOUNTS ADMINISTRATOR Medication List Medication Instructions Start Date Stop Date Generic Name NDC Status Provider Patient Instruction PROMETHAZINE HCL 12.5 MG ORAL TABLET 1 tablet by mouth every 4 hours as needed for nausea/vomiting PROMETHAZINE HCL 13082535582 Active Estela Clifton LPN Active DIFLUCAN 150 MG ORAL TABLET 1 tablet by mouth daily 20 10/07/30 FLUCONAZOLE 93032317310 No Longer Active Megan Wise Active ACYCLOVIR 400 MG ORAL TABLET One tab PO BID until delivery 06/23 ACYCLOVIR 68934017393 Active Dionne Stewart MD Active SKLICE 0.5 % EXTERNAL LOTION Apply 4oz to dry hair and rinse of after 10 minutes IVERMECTIN 58845291375 No Longer Active Megan lowe Active TRUE METRIX BLOOD GLUCOSE TEST IN VITRO STRIP Check bl ood sugars four times a day as directed for gestational DM; O24.420 GLUC OSE BLOOD 17453596659 Active Nayeli Duke APRN Active TRUE METRIX GO GLUCOSE METER W/DEVICE KIT Check blood sugars as directed BLOOD GLUCOSE MONITORING SUPPL 15205912705 Active Nayeli Duke APRN Active LANCETS Test blood sugars as directed for gestational DM O24. 420 LANCETS 42217102148 Active Nayeli Duke APRN Activ e AUGMENTIN 875-125 MG ORAL TABLET 1 po BID x 10 days 09/06/11 AMOXICILLIN-POT CLAVULANATE 35655629097 No Longer Active Rosalina Bland ACCOUNTS ADMINISTRATOR Active FERROUS SULFATE 325 (65 FE) MG ORAL TABLET 1 tablet daily 5 FERROUS SULFATE 54425527621 Active Estela Clifton LPN Active LORATADINE 10 MG ORAL TABLET 1 tablet by mouth daily LORATADINE 46531271651 Active Dionne Stewart MD Active TYLENOL PM EXTRA STRENGTH 500-25 MG ORAL TABLET PRN 12/31 DIPHENHYDRAMINE-APAP (SLEEP) 01617327089 No Longer Active Dionne Stewart MD Active CONCEPT DHA 53.5-38-1 MG ORAL CAPSULE one tab PO daily WQWHXT-OSUTW-HYMI-FA-OMEGA 3 12060069952 Active Dionne Stewart MD Active FLAGYL 500 MG ORAL TABLET 1 tablet PO BID for 7 days 2 METRONIDAZOLE 68800591940 No Longer Active Dionne Stewart MD Active EQL FORMULA 28-0.8 MG ORAL TABLET 1 tablet daily 1 VIT-FE FUMARATE-FA 86503122935 No Longer Active Dionne Stewart MD A ctive CONCEPT DHA 53.5-38-1 MG ORAL CAPSULE one tab PO daily FIOYXE-EWASC-HATC-FA-OMEGA 3 97738470235 No Longer Active Dionne Stewart MD Active CYCLOBENZAPRINE HCL 10 MG ORAL TABLET 1 tablet by mout h three times daily as needed for muscle spasm/pain CYCLOBENZAPRINE HCL 21962066238 No Longer Active Dionne Stewart MD Active TRI-SPRINTEC 0.18/0.215/0.25 MG-35 MCG ORAL TABLET 1 po qd a s directed NORGESTIM-ETH ESTRAD TRIPHASIC 21925551295 N o Longer Active Dionne Stewart MD Active FLAGYL 250 MG ORAL TABLET One tablet three times a day METRONIDAZOLE 31262023192 No Longer Active Cintia Pagan APRN Active [facility] 28-0.8 MG ORAL TABLET 04/10 VIT-FE FUMARATE-FA 30169014996 No Longer Active Dionne Stewart MD Active [facility] 28-0.8 MG ORAL TABLET 04/10 [facility] 28-0.8 MG ORAL TABLET VIT-FE FUMARATE-FA Inactive TRI-SPRINTEC 0.18/0.215/0.25 MG-35 MCG ORAL TABLET 1 po qd a s directed TRI-SPRINTEC 0.18/0.215/0.25 MG-35 MCG ORAL TABL ET 751547 NORGESTIM-ETH ESTRAD TRIPHASIC Inactive CYCLOBENZAPRINE HCL 10 MG ORAL TABLET 1 tablet by mout h three times daily as needed for muscle spasm/pain CYCLOBENZAP RINE HCL 10 MG ORAL TABLET 567191 CYCLOBENZAPRINE HCL Inactive CONCEPT DHA 53.5-38-1 MG ORAL CAPSULE one tab PO daily CONCEPT DHA 53.5-38-1 MG ORAL CAPSULE JQIXDS-IQVGK-PZXK-FA-O BILLIE 3 Inactive FLAGYL 500 MG ORAL TABLET 1 tablet PO BID for 7 days 2 FLAGYL 500 MG ORAL TABLET 620221 METRONIDAZOLE Inactive TYLENOL PM EXTRA STRENGTH 500-25 MG ORAL TABLET PRN 12/31 TYLENOL PM EXTRA STRENGTH 500-25 MG ORAL TABLET 0462578 DIPHEN HYDRAMINE-APAP (SLEEP) Inactive SKLICE 0.5 % EXTERNAL LOTION Apply 4oz to dry hair and rinse of after 10 minutes SKLICE 0.5 % EXTERNAL LOTION IVERMEC TIN Inactive DIFLUCAN 150 MG ORAL TABLET 1 tablet by mouth daily 10/07/30 DIFLUCAN 150 MG ORAL TABLET 626859 FLUCONAZOLE Inactive FLAGYL 250 MG ORAL TABLET One tablet three times a day FLAGYL 250 MG ORAL TABLET 265559 METRONIDAZOLE Inactive AUGMENTIN 875-125 MG ORAL TABLET 1 po BID x 10 days 09/06/11 AUGMENTIN 875-125 MG ORAL TABLET 554119 AMOXICILLIN-POT CLAVULANATE Inactive Immunizations Vaccine Administration Date [...] 11 .0-15.0 platelet count 226 THOUSAND/UL 10*3/mm3 487-553 1126/05/11 mean platelet volume 10.3 fL 7.5-12.5 Blood [...] SCREEN, RBCW/REFL I , [place] 82192 - Blood bank antibody screen, serum NO ANTIBODIES DETECTED Lab Report: CBC, [id number] Gluc cari-1spec - Hematology leukocyte count, blood [...] 201 10^3/MM^3 10*3/mm3 142-424 Lab Report: Chlamydia/GC APTIMA/[id number], H EPATITIS B S AG W/, HIV-1/2 Agn/ ... - Chemistry hepatitis B surface antigen NON-REACTIVE NON-RE ACTIVE rapid plasma reagin antibody titer NON-REACTIVE NON-REACTIVE Lab Report: Chlamydia/GC APTIMA/[id number], H EPATITIS B S AG W/, HIV-1/2 Agn/ ... - Lab chlamydia DNA probe NOT DETECTED NOT DETECTED Lab Report: Chlamydia/GC APTIMA/[id number], H EPATITIS B S AG W/, HIV-1/2 [...] N Encounters Code Encounter Date Provider Facility CPT-47028 Level 4 Est. Patient 15:39:57 CDT Nayeli herrera [facility] CPT-95889 Level 3 Est. Patient 17:26:51 CDT Rosalina berg [facility] CPT-83822 Level 3 Est. Patient 17:31:05 EMERGENCY MEDICAL TECH Cintia sommer [facility] Procedures Code Procedure Name Date Entry Date Standard Desc ription CPT-54929 Visit 10:15:43 EMERGENCY MEDICAL TECH CPT-81551 Visit 13:02:58 EMERGENCY MEDICAL TECH CPT-13475 Visit 12:11:18 EMERGENCY MEDICAL TECH CPT-54996 Visit 10:38:39 CDT CPT-96304 Visit 08:28:55 CDT CPT-34980 Addl Vx - Ix admin via ID IM or jet injects without counseling by physician 18:18:11 CDT CPT-10430 Boostrix Intramuscular Suspension 5-2.5-18.5 201 04/01/05 18:18:11 CDT CPT-86771 First Vx - Ix admin via ID I M or jet injects without counseling by physician 18:18:11 CDT CPT-75258 Flulaval Intramuscular Injectable 18:18:11 CDT CPT-88524 Fluzone Thim Free 36mo and older 11:16:54 C DT CPT-30598 Tdap 7yrs or > 11:16:53 CDT CPT-51517 Visit 11:16:53 CDT CPT-16905 Visit 11:14:16 CDT CPT-97506 Visit 10:54:00 CDT CPT-46486 Visit 16:24:31 CDT CPT-66163 Sono OB comp > 14 weeks - XRAY USE ONLY 12:01:14 CDT CPT-63372 Visit 15:58:08 CDT CPT-04429 Visit 12:16:56 CDT CPT-96543K Sono OB comp <14 weeks ([place] Only) - X RAY USE ONLY 12:09:02 CDT CPT-60346 Spec Collection and Handling Fee 10:11:50 C DT CPT-61525 Visit 10:11:49 CDT CPT-J1050 Depo Provera 150 mg (Medroxyprogesterone) 08/30 16:06:30 EMERGENCY MEDICAL TECH CPT-95807 Abx/Therapy Injection 16:06:30 EMERGENCY MEDICAL TECH CPT-J1050 Depo Provera 150 mg (Medroxyprogesterone) 08/30 15:39:17 EMERGENCY MEDICAL TECH CPT-40358 Visit 15:01:38 CDT CPT-49556 Sono OB comp > 14 weeks 16:05:04 CDT 03/18 CPT-24494 Spec Collection and Handling Fee 10:45:40 C DT CPT-90149 Visit 10:45:40 CDT
--- OUTSIDE RECORDS SUMMARY | 2020-01-04 23:47 | XMS REPORT | Clinical Summary ---
Author Author Admin, Giuliana Flores Organization [facility] Address Unknown Phone Unavailable Allergies, Adverse Reactions, [...] use disorder NEED FOR PROPHYLACTIC VACCINATION WITH PCBTCSA-FGUPE-I UBELLA (MMR) VACCINE V06.4 Resolved Cintia Pagan APRN Need for prophylactic vaccination with erckcke-kcigz-snhbemz [MMR] vaccine Contraceptive management V25.9 Resolved Taiwo [...] gestation of V28.9 Inactive 2017 Nayeli Duke LITHOGRAPH DESIGNER Encounter for unspecified scre ening of mother Abnormal biochemical finding on screening 796.5 20 09/03/10 Active Estela Clifton BAR FINISH OPERATOR Abnormal finding on antenata l screening Sinusitis, acute frontal 461.1 Active Rosalina berg LITHOGRAPH DESIGNER Acute frontal sinusitis GDM, diet controlled 648.80 Active Nayeli Duke LITHOGRAPH DESIGNER Abnormal glucose tolerance complicating , childbirth, or the puerperium, unspecified as to episode of care or not applicable 30 weeks gestation of V28.9 Inactive 2017 Nayeli Duke LITHOGRAPH DESIGNER Encounter for unspecified scre ening of mother [...] g estation Std exposure V01.6 Active Dionne tSewart MD Contact with or exposure to venereal diseases care, delayed ICD-V23.7 Inactive Kristin Pagan LITHOGRAPH DESIGNER NEED FOR PROPHYLACTIC VACCINATION WITH CLXRVRF-AQNNU-O UBELLA (MMR) VACCINE ICD-V06.4 Inactive Cintia Pagan LITHOGRAPH DESIGNER Contraceptive management ICD-V25.9 Inactive Dionne Stewart MD follow-up, routine ICD-V24.2 Inacti ve Dionne Stewart MD Vaginal discharge ICD-623.5 Inactive Dionne spencer MD 29 weeks gestation of ICD-V28.9 Inac catalina Duke LITHOGRAPH DESIGNER Medication List Medication Instructions Start Date Stop Date Generic Name NDC Status Provider Patient Instruction PROMETHAZINE HCL 12.5 MG ORAL TABLET 1 tablet by mouth every 4 hours as needed for nausea/vomiting PROMETHAZINE HCL 97478815955 Active Estela Clifton LPN Active DIFLUCAN 150 MG ORAL TABLET 1 tablet by mouth daily 20 10/07/30 FLUCONAZOLE 13623981372 No Longer Active Megan Wise Active ACYCLOVIR 400 MG ORAL TABLET One tab PO BID until delivery 06/23 ACYCLOVIR 80414938137 Active Dionne Stewart MD Active SKLICE 0.5 % EXTERNAL LOTION Apply 4oz to dry hair and rinse of after 10 minutes IVERMECTIN 32160798334 No Longer Active Megan lowe Active TRUE METRIX BLOOD GLUCOSE TEST IN VITRO STRIP Check bl ood sugars four times a day as directed for gestational DM; O24.420 GLUC OSE BLOOD 42974067426 Active Nayeli Duke APRN Active TRUE METRIX GO GLUCOSE METER W/DEVICE KIT Check blood sugars as directed BLOOD GLUCOSE MONITORING SUPPL 27558942506 Active Nayeli Duke APRN Active LANCETS Test blood sugars as directed for gestational DM O24. 420 LANCETS 75505240841 Active Nayeli Duke APRN Activ e AUGMENTIN 875-125 MG ORAL TABLET 1 po BID x 10 days 09/06/11 AMOXICILLIN-POT CLAVULANATE 05306005451 No Longer Active Rosalina Bland LITHOGRAPH DESIGNER Active FERROUS SULFATE 325 (65 FE) MG ORAL TABLET 1 tablet daily 5 FERROUS SULFATE 12023788552 Active Estela Clifton LPN Active LORATADINE 10 MG ORAL TABLET 1 tablet by mouth daily LORATADINE 45128863117 Active Dionne Stewart MD Active TYLENOL PM EXTRA STRENGTH 500-25 MG ORAL TABLET PRN 12/31 DIPHENHYDRAMINE-APAP (SLEEP) 46223207276 No Longer Active Dionne Stewart MD Active CONCEPT DHA 53.5-38-1 MG ORAL CAPSULE one tab PO daily JTMCGZ-BOILR-OOHZ-FA-OMEGA 3 74699404187 Active Dionne Stewart MD Active FLAGYL 500 MG ORAL TABLET 1 tablet PO BID for 7 days 2 METRONIDAZOLE 80204435056 No Longer Active Dionne Stewart MD Active EQL FORMULA 28-0.8 MG ORAL TABLET 1 tablet daily 1 VIT-FE FUMARATE-FA 52291649140 No Longer Active Dionne Stewart MD A ctive CONCEPT DHA 53.5-38-1 MG ORAL CAPSULE one tab PO daily MKZPMK-FUGPH-UFBR-FA-OMEGA 3 52428200178 No Longer Active Dionne Stewart MD Active CYCLOBENZAPRINE HCL 10 MG ORAL TABLET 1 tablet by mout h three times daily as needed for muscle spasm/pain CYCLOBENZAPRINE HCL 75948331234 No Longer Active Dionne Stewart MD Active TRI-SPRINTEC 0.18/0.215/0.25 MG-35 MCG ORAL TABLET 1 po qd a s directed NORGESTIM-ETH ESTRAD TRIPHASIC 58558476917 N o Longer Active Dionne Stewart MD Active FLAGYL 250 MG ORAL TABLET One tablet three times a day METRONIDAZOLE 51671966349 No Longer Active Cintia Pagan APRN Active [facility] 28-0.8 MG ORAL TABLET 04/10 VIT-FE FUMARATE-FA 76882986213 No Longer Active Dionne Stewart MD Active [facility] 28-0.8 MG ORAL TABLET 04/10 [facility] 28-0.8 MG ORAL TABLET VIT-FE FUMARATE-FA Inactive TRI-SPRINTEC 0.18/0.215/0.25 MG-35 MCG ORAL TABLET 1 po qd a s directed TRI-SPRINTEC 0.18/0.215/0.25 MG-35 MCG ORAL TABL ET 274617 NORGESTIM-ETH ESTRAD TRIPHASIC Inactive CYCLOBENZAPRINE HCL 10 MG ORAL TABLET 1 tablet by mout h three times daily as needed for muscle spasm/pain CYCLOBENZAP RINE HCL 10 MG ORAL TABLET 687786 CYCLOBENZAPRINE HCL Inactive CONCEPT DHA 53.5-38-1 MG ORAL CAPSULE one tab PO daily CONCEPT DHA 53.5-38-1 MG ORAL CAPSULE JKLKXS-FJAIX-MOOC-FA-O BILLIE 3 Inactive FLAGYL 500 MG ORAL TABLET 1 tablet PO BID for 7 days 2 FLAGYL 500 MG ORAL TABLET 082380 METRONIDAZOLE Inactive TYLENOL PM EXTRA STRENGTH 500-25 MG ORAL TABLET PRN 12/31 TYLENOL PM EXTRA STRENGTH 500-25 MG ORAL TABLET 3068357 DIPHEN HYDRAMINE-APAP (SLEEP) Inactive SKLICE 0.5 % EXTERNAL LOTION Apply 4oz to dry hair and rinse of after 10 minutes SKLICE 0.5 % EXTERNAL LOTION IVERMEC TIN Inactive DIFLUCAN 150 MG ORAL TABLET 1 tablet by mouth daily 10/07/30 DIFLUCAN 150 MG ORAL TABLET 519523 FLUCONAZOLE Inactive FLAGYL 250 MG ORAL TABLET One tablet three times a day FLAGYL 250 MG ORAL TABLET 616082 METRONIDAZOLE Inactive AUGMENTIN 875-125 MG ORAL TABLET 1 po BID x 10 days 09/06/11 AUGMENTIN 875-125 MG ORAL TABLET 990067 AMOXICILLIN-POT CLAVULANATE Inactive Immunizations Vaccine Administration Date [...] 11 .0-15.0 platelet count 226 THOUSAND/UL 10*3/mm3 421-106 3044/05/11 mean platelet volume 10.3 fL 7.5-12.5 Blood [...] SCREEN, RBCW/REFL I , Drug Abuse Pnl 10-50/93479 - Blood bank antibody screen, serum NO ANTIBODIES DETECTED Lab Report: CBC, [id number] Gluc cari-1spec - Hematology leukocyte count, blood [...] 201 10^3/MM^3 10*3/mm3 142-424 Lab Report: Chlamydia/GC APTIMA/[id number], H EPATITIS B S AG W/, HIV-1/2 Agn/ ... - Chemistry hepatitis B surface antigen NON-REACTIVE NON-RE ACTIVE rapid plasma reagin antibody titer NON-REACTIVE NON-REACTIVE Lab Report: Chlamydia/GC APTIMA/88117, H EPATITIS B S AG W/, HIV-1/2 Agn/ ... - Lab chlamydia DNA probe NOT DETECTED NOT DETECTED Lab Report: Chlamydia/GC APTIMA/[id number], H EPATITIS B S AG W/, HIV-1/2 [...] N Encounters Code Encounter Date Provider Facility CPT-06567 Level 4 Est. Patient 15:39:57 CDT Nayeli herrera [facility] CPT-35104 Level 3 Est. Patient 17:26:51 CDT Rosalina berg [facility] CPT-38630 Level 3 Est. Patient 17:31:05 HORSE RACING ANALYST Cintia sommer [facility] Procedures Code Procedure Name Date Entry Date Standard Desc ription CPT-34314 Visit 10:15:43 HORSE RACING ANALYST CPT-63654 Visit 13:02:58 HORSE RACING ANALYST CPT-25376 Visit 12:11:18 HORSE RACING ANALYST CPT-04599 Visit 10:38:39 CDT CPT-58989 Visit 08:28:55 CDT CPT-35979 Addl Vx - Ix admin via ID IM or jet injects without counseling by physician 18:18:11 CDT CPT-18372 Boostrix Intramuscular Suspension 5-2.5-18.5 201 04/01/05 18:18:11 CDT CPT-93424 First Vx - Ix admin via ID I M or jet injects without counseling by physician 18:18:11 CDT CPT-92662 Flulaval Intramuscular Injectable 18:18:11 CDT CPT-96278 Fluzone Thim Free 36mo and older 11:16:54 C DT CPT-82331 Tdap 7yrs or > 11:16:53 CDT CPT-58160 Visit 11:16:53 CDT CPT-26300 Visit 11:14:16 CDT CPT-22320 Visit 10:54:00 CDT CPT-97545 Visit 16:24:31 CDT CPT-22609 Sono OB comp > 14 weeks - XRAY USE ONLY 12:01:14 CDT CPT-04092 Visit 15:58:08 CDT CPT-01127 Visit 12:16:56 CDT CPT-90300C Sono OB comp <14 weeks ([place] Only) - X RAY USE ONLY 12:09:02 CDT CPT-09993 Spec Collection and Handling Fee 10:11:50 C DT CPT-53252 Visit 10:11:49 CDT CPT-J1050 Depo Provera 150 mg (Medroxyprogesterone) 08/30 16:06:30 HORSE RACING ANALYST CPT-04815 Abx/Therapy Injection 16:06:30 HORSE RACING ANALYST CPT-J1050 Depo Provera 150 mg (Medroxyprogesterone) 08/30 15:39:17 HORSE RACING ANALYST CPT-07342 Visit 15:01:38 CDT CPT-13739 Sono OB comp > 14 weeks 16:05:04 CDT 03/18 CPT-65044 Spec Collection and Handling Fee 10:45:40 C DT CPT-76476 Visit 10:45:40 CDT
--- OUTSIDE RECORDS SUMMARY | 2020-01-04 23:47 | XMS REPORT | Clinical Summary ---
Author Author Admin, Giuliana Flores Organization [facility] Address Unknown Phone Unavailable Allergies, Adverse Reactions, [...] to health Tobacco abuse, gestational 305.1 Active Sergio Stewart MD Tobacco use disorder NEED FOR PROPHYLACTIC VACCINATION WITH POAEFNF-UUEFE-K UBELLA (MMR) VACCINE V06.4 Resolved Cintia Pagan APRN Need for prophylactic vaccination with hcocrwp-lahuy-duprbbx [MMR] vaccine Contraceptive management V25.9 Resolved Taiwo [...] gestation of V28.9 Inactive 2017 Nayeli Duke MARKING MACHINE OPERATOR Encounter for unspecified scre ening of mother Abnormal biochemical finding on screening 796.5 20 09/03/10 Active Estela Clifton [employer] Abnormal finding on antenata l screening Sinusitis, acute frontal 461.1 Active Rosalina berg MARKING MACHINE OPERATOR Acute frontal sinusitis GDM, diet controlled 648.80 Active Nayeli Duke MARKING MACHINE OPERATOR Abnormal glucose tolerance complicating , childbirth, or the puerperium, unspecified as to episode of care or not applicable 30 weeks gestation of V28.9 Inactive 2017 Nayeli Duke MARKING MACHINE OPERATOR Encounter for unspecified scre ening [...] of mother 36 weeks gestation of V28.9 Active 2017 Dionne Stewart MD Encounter for unspecified scre ening of mother Std exposure V01.6 Active Dionne Stewart MD Contact with or exposure to venereal diseases care, delayed ICD-V23.7 Inactive Kristin taylor Latasha MARKING MACHINE OPERATOR NEED FOR PROPHYLACTIC VACCINATION WITH DHNDFNY-YVPAT-X UBELLA (MMR) VACCINE ICD-V06.4 Inactive Cintia Latasha MARKING MACHINE OPERATOR Contraceptive management ICD-V25.9 Inactive Dionne Stewart MD follow-up, routine ICD-V24.2 Inacti ve Dionne Stewart MD Vaginal discharge ICD-623.5 Inactive Dionne spencer MD 29 weeks gestation of ICD-V28.9 Inac catalina Duke MARKING MACHINE OPERATOR Medication List Medication Instructions Start Date Stop Date Generic Name NDC Status Provider Patient Instruction DIFLUCAN 150 MG ORAL TABLET 1 tablet by mouth daily FLUCONAZOLE 69174554331 Active Megan Wise Active ACYCLOVIR 400 MG ORAL TABLET One tab PO BID until delivery 06/23 ACYCLOVIR 66267290665 Active Dionne Stewart MD Active SKLICE 0.5 % EXTERNAL LOTION Apply 4oz to dry hair and rinse of after 10 minutes IVERMECTIN 39951717531 No Longer Active Megan lowe Active TRUE METRIX BLOOD GLUCOSE TEST IN VITRO STRIP Check bl ood sugars four times a day as directed for gestational DM; O24.420 GLUC OSE BLOOD 52391912278 Active Nayeli Srikanth CHAVEZN Active TRUE METRIX GO GLUCOSE METER W/DEVICE KIT Check blood sugars as directed BLOOD GLUCOSE MONITORING SUPPL 88498357224 Active Nayeli [place] MARKING MACHINE OPERATOR Active LANCETS Test blood sugars as directed for gestational DM O24. 420 LANCETS 68403241474 Active Nayeliespinoza Duke APRN Activ e AUGMENTIN 875-125 MG ORAL TABLET 1 po BID x 10 days 20 09/06/11 AMOXICILLIN-POT CLAVULANATE 98090706637 No Longer Active Rosalina Bland MARKING MACHINE OPERATOR Active FERROUS SULFATE 325 (65 FE) MG ORAL TABLET 1 tablet daily 5 FERROUS SULFATE 65342413191 Active Estela Clifton LPN Active LORATADINE 10 MG ORAL TABLET 1 tablet by mouth daily LORATADINE 51324315012 Active Dionne Stewart MD Active TYLENOL PM EXTRA STRENGTH 500-25 MG ORAL TABLET PRN 12/31 DIPHENHYDRAMINE-APAP (SLEEP) 07698675838 No Longer Active Dionne Stewart MD Active CONCEPT DHA 53.5-38-1 MG ORAL CAPSULE one tab PO daily AWYKNK-ULRFU-VGCP-FA-OMEGA 3 02038938913 Active Dionne Stewart MD Active FLAGYL 500 MG ORAL TABLET 1 tablet PO BID for 7 days 2 METRONIDAZOLE 84731338471 No Longer Active Dionne Stewart MD Active EQL FORMULA 28-0.8 MG ORAL TABLET 1 tablet daily 1 VIT-FE FUMARATE-FA 10928221751 No Longer Active Dionne Stewart MD A ctive CONCEPT DHA 53.5-38-1 MG ORAL CAPSULE one tab PO daily ZZLVKW-PWPWU-HBGE-FA-OMEGA 3 35889026432 No Longer Active Dionne Stewart MD Active CYCLOBENZAPRINE HCL 10 MG ORAL TABLET 1 tablet by mout h three times daily as needed for muscle spasm/pain CYCLOBENZAPRINE HCL 74257267719 No Longer Active Dionne Stewart MD Active TRI-SPRINTEC 0.18/0.215/0.25 MG-35 MCG ORAL TABLET 1 po qd a s directed NORGESTIM-ETH ESTRAD TRIPHASIC 01403988657 N o Longer Active Dionne Stewart MD Active FLAGYL 250 MG ORAL TABLET One tablet three times a day METRONIDAZOLE 56682368508 No Longer Active Cintia Latasha MARKING MACHINE OPERATOR Active [facility] 28-0.8 MG ORAL TABLET 04/10 VIT-FE FUMARATE-FA 47074117436 No Longer Active Dionne Stewart MD Active [facility] 28-0.8 MG ORAL TABLET 04/10 [facility] 28-0.8 MG ORAL TABLET VIT-FE FUMARATE-FA Inactive TRI-SPRINTEC 0.18/0.215/0.25 MG-35 MCG ORAL TABLET 1 po qd a s directed TRI-SPRINTEC 0.18/0.215/0.25 MG-35 MCG ORAL TABL ET 860124 NORGESTIM-ETH ESTRAD TRIPHASIC Inactive CYCLOBENZAPRINE HCL 10 MG ORAL TABLET 1 tablet by mout h three times daily as needed for muscle spasm/pain CYCLOBENZAP RINE HCL 10 MG ORAL TABLET 906667 CYCLOBENZAPRINE HCL Inactive CONCEPT DHA 53.5-38-1 MG ORAL CAPSULE one tab PO daily CONCEPT DHA 53.5-38-1 MG ORAL CAPSULE JUCCCV-FXLKH-UWCK-FA-O BILLIE 3 Inactive FLAGYL 500 MG ORAL TABLET 1 tablet PO BID for 7 days 2 FLAGYL 500 MG ORAL TABLET 812045 METRONIDAZOLE Inactive TYLENOL PM EXTRA STRENGTH 500-25 MG ORAL TABLET PRN 12/31 TYLENOL PM EXTRA STRENGTH 500-25 MG ORAL TABLET 6607764 DIPHEN HYDRAMINE-APAP (SLEEP) Inactive SKLICE 0.5 % EXTERNAL LOTION Apply 4oz to dry hair and rinse of after 10 minutes SKLICE 0.5 % EXTERNAL LOTION IVERMEC TIN Inactive FLAGYL 250 MG ORAL TABLET One tablet three times a day FLAGYL 250 MG ORAL TABLET 375559 METRONIDAZOLE Inactive AUGMENTIN 875-125 MG ORAL TABLET 1 po BID x 10 days 09/06/11 AUGMENTIN 875-125 MG ORAL TABLET 819669 AMOXICILLIN-POT CLAVULANATE Inactive Immunizations Vaccine Administration Date Value Standard Koko cription hepatitis B vaccine series yes hepat itis B vaccine, unspecified formulation hepatitis B vaccine series no hepat itis B vaccine, unspecified formulation Vital Signs Date Name Value Unit Range Description blood pressure, diastolic 68 mm[Hg] BP miramontes [...] 11 .0-15.0 platelet count 226 THOUSAND/UL 10*3/mm3 662-003 1885/05/11 mean platelet volume 10.3 fL 7.5-12.5 Blood [...] SCREEN, RBCW/REFL I , Drug Abuse Pnl 10-50/31709 - Blood bank antibody screen, serum NO ANTIBODIES DETECTED Lab Report: CBC, [id number] Gluc cari-1spec - Hematology leukocyte count, blood [...] 201 10^3/MM^3 10*3/mm3 142-424 Lab Report: Chlamydia/GC APTIMA/67548, H EPATITIS B S AG W/, HIV-1/2 Agn/ ... - Chemistry hepatitis B surface antigen NON-REACTIVE NON-RE ACTIVE rapid plasma reagin antibody titer NON-REACTIVE NON-REACTIVE Lab Report: Chlamydia/GC APTIMA/33344, H EPATITIS B S AG W/, HIV-1/2 Agn/ ... - Lab chlamydia DNA probe NOT DETECTED NOT DETECTED Lab Report: Chlamydia/GC APTIMA/03117, H EPATITIS B S AG W/, HIV-1/2 [...] semiquantitative (dipstick) N nitrite, urine, semiquantitative N Office Visit: [...] N Encounters Code Encounter Date Provider Facility CPT-28909 Level 4 Est. Patient 15:39:57 CDT Nayeli herrera [facility] CPT-50238 Level 3 Est. Patient 17:26:51 CDT Rosalina berg [facility] CPT-96950 Level 3 Est. Patient 17:31:05 [employer] Cintia Yosergio kemal [facility] Procedures Code Procedure Name Date Entry Date Standard Desc ription CPT-14523 Visit 13:02:58 [employer] CPT-42627 Visit 12:11:18 [employer] CPT-01843 Visit 10:38:39 CDT CPT-24668 Visit 08:28:55 CDT CPT-26487 Addl Vx - Ix admin via ID IM or jet injects without counseling by physician 18:18:11 CDT CPT-31996 Boostrix Intramuscular Suspension 5-2.5-18.5 201 04/01/05 18:18:11 CDT CPT-05954 First Vx - Ix admin via ID I M or jet injects without counseling by physician 18:18:11 CDT CPT-27975 Flulaval Intramuscular Injectable 18:18:11 CDT CPT-85500 Fluzone Thim Free 36mo and older 11:16:54 C DT CPT-89341 Tdap 7yrs or > 11:16:53 CDT CPT-20465 Visit 11:16:53 CDT CPT-29835 Visit 11:14:16 CDT CPT-72827 Visit 10:54:00 CDT CPT-69450 Visit 16:24:31 CDT CPT-13265 Sono OB comp > 14 weeks - XRAY USE ONLY 12:01:14 CDT CPT-24276 Visit 15:58:08 CDT CPT-03483 Visit 12:16:56 CDT CPT-24020F Sono OB comp <14 weeks ([place] Only) - X RAY USE ONLY 12:09:02 CDT CPT-97402 Spec Collection and Handling Fee 10:11:50 C DT CPT-16133 Visit 10:11:49 CDT CPT-J1050 Depo Provera 150 mg (Medroxyprogesterone) 08/30 16:06:30 [employer] CPT-12857 Abx/Therapy Injection 16:06:30 [employer] CPT-J1050 Depo Provera 150 mg (Medroxyprogesterone) 08/30 15:39:17 [employer] CPT-09844 Visit 15:01:38 CDT CPT-93327 Sono OB comp > 14 weeks 16:05:04 CDT 03/18 CPT-99602 Spec Collection and Handling Fee 10:45:40 C DT CPT-01316 Visit 10:45:40 CDT
--- OUTSIDE RECORDS SUMMARY | 2020-01-04 23:48 | XMS REPORT | Clinical Summary ---
Author Author Admin, Giuliana Flores Organization [facility] Address Unknown Phone Unavailable Allergies, Adverse Reactions, [...] use disorder NEED FOR PROPHYLACTIC VACCINATION WITH NHZXMJB-RJIBN-X UBELLA (MMR) VACCINE V06.4 Resolved Cintia Pagan APRN Need for prophylactic vaccination with yotulrx-kmezc-fnpsjqf [MMR] vaccine Contraceptive management V25.9 Resolved Taiwo [...] gestation of V28.9 Inactive 2017 Nayeli Duke SPUN PASTE MACHINE OPERATOR Encounter for unspecified scre ening of mother Abnormal biochemical finding on screening 796.5 20 09/03/10 Active Estela Clifton [facility] Abnormal finding on antenata l screening Sinusitis, acute frontal 461.1 Active Rosalina berg SPUN PASTE MACHINE OPERATOR Acute frontal sinusitis GDM, diet controlled 648.80 Active Nayeli Duke SPUN PASTE MACHINE OPERATOR Abnormal glucose tolerance complicating , childbirth, or the puerperium, unspecified as to episode of care or not applicable 30 weeks gestation of V28.9 Inactive 2017 Nayeli Duke SPUN PASTE MACHINE OPERATOR Encounter for unspecified scre ening [...] care, delayed ICD-V23.7 Inactive Kristin taylor Latasha SPUN PASTE MACHINE OPERATOR NEED FOR PROPHYLACTIC VACCINATION WITH WTLLIVA-AOEAP-T UBELLA (MMR) VACCINE ICD-V06.4 Inactive Cintia Latasha SPUN PASTE MACHINE OPERATOR Contraceptive management ICD-V25.9 Inactive Dionne Stewart MD follow-up, routine ICD-V24.2 Inacti ve Dionne Stewart MD Vaginal discharge ICD-623.5 Inactive Dionne spencer MD 29 weeks gestation of ICD-V28.9 Inac catalina Duke SPUN PASTE MACHINE OPERATOR Medication List Medication Instructions Start Date Stop Date Generic Name NDC Status Provider Patient Instruction DIFLUCAN 150 MG ORAL TABLET 1 tablet by mouth daily FLUCONAZOLE 86695277818 Active Megan Wise Active ACYCLOVIR 400 MG ORAL TABLET One tab PO BID until delivery 06/23 ACYCLOVIR 02860093590 Active Dionne Stewart MD Active SKLICE 0.5 % EXTERNAL LOTION Apply 4oz to dry hair and rinse of after 10 minutes IVERMECTIN 67254910763 No Longer Active Megan lowe Active TRUE METRIX BLOOD GLUCOSE TEST IN VITRO STRIP Check bl ood sugars four times a day as directed for gestational DM; O24.420 GLUC OSE BLOOD 02172604926 Active Nayeli Srikanth CHAVEZN Active TRUE METRIX GO GLUCOSE METER W/DEVICE KIT Check blood sugars as directed BLOOD GLUCOSE MONITORING SUPPL 46087001695 Active Nayeli Lunenburg SPUN PASTE MACHINE OPERATOR Active LANCETS Test blood sugars as directed for gestational DM O24. 420 LANCETS 95071119982 Active Nayeliespinoza Duke APRN Activ e AUGMENTIN 875-125 MG ORAL TABLET 1 po BID x 10 days 20 09/06/11 AMOXICILLIN-POT CLAVULANATE 07652724770 No Longer Active Rosalina Bland SPUN PASTE MACHINE OPERATOR Active FERROUS SULFATE 325 (65 FE) MG ORAL TABLET 1 tablet daily 5 FERROUS SULFATE 42333312406 Active Estela Clifton LPN Active LORATADINE 10 MG ORAL TABLET 1 tablet by mouth daily LORATADINE 10852217740 Active Dionne Stewart MD Active TYLENOL PM EXTRA STRENGTH 500-25 MG ORAL TABLET PRN 12/31 DIPHENHYDRAMINE-APAP (SLEEP) 59577910800 No Longer Active Dionne Stewart MD Active CONCEPT DHA 53.5-38-1 MG ORAL CAPSULE one tab PO daily RSOVGI-HMNDM-EEXB-FA-OMEGA 3 72490147524 Active Dionne Stewart MD Active FLAGYL 500 MG ORAL TABLET 1 tablet PO BID for 7 days 2 METRONIDAZOLE 66788703079 No Longer Active Dionne Stewart MD Active EQL FORMULA 28-0.8 MG ORAL TABLET 1 tablet daily 1 VIT-FE FUMARATE-FA 42044475341 No Longer Active Dionne Stewart MD A ctive CONCEPT DHA 53.5-38-1 MG ORAL CAPSULE one tab PO daily IJKBGF-DOAIT-TPDC-FA-OMEGA 3 96167231759 No Longer Active Dionne Stewart MD Active CYCLOBENZAPRINE HCL 10 MG ORAL TABLET 1 tablet by mout h three times daily as needed for muscle spasm/pain CYCLOBENZAPRINE HCL 40593376516 No Longer Active Dionne Stewart MD Active TRI-SPRINTEC 0.18/0.215/0.25 MG-35 MCG ORAL TABLET 1 po qd a s directed NORGESTIM-ETH ESTRAD TRIPHASIC 18080358889 N o Longer Active Dionne Stewart MD Active FLAGYL 250 MG ORAL TABLET One tablet three times a day METRONIDAZOLE 62970889335 No Longer Active Cintia Latasha SPUN PASTE MACHINE OPERATOR Active [facility] 28-0.8 MG ORAL TABLET 04/10 VIT-FE FUMARATE-FA 74715261685 No Longer Active Dionne Stewart MD Active [facility] 28-0.8 MG ORAL TABLET 04/10 [facility] 28-0.8 MG ORAL TABLET VIT-FE FUMARATE-FA Inactive TRI-SPRINTEC 0.18/0.215/0.25 MG-35 MCG ORAL TABLET 1 po qd a s directed TRI-SPRINTEC 0.18/0.215/0.25 MG-35 MCG ORAL TABL ET 086026 NORGESTIM-ETH ESTRAD TRIPHASIC Inactive CYCLOBENZAPRINE HCL 10 MG ORAL TABLET 1 tablet by mout h three times daily as needed for muscle spasm/pain CYCLOBENZAP RINE HCL 10 MG ORAL TABLET 551349 CYCLOBENZAPRINE HCL Inactive CONCEPT DHA 53.5-38-1 MG ORAL CAPSULE one tab PO daily CONCEPT DHA 53.5-38-1 MG ORAL CAPSULE XROQRD-SEDQR-GMXX-FA-O BILLIE 3 Inactive FLAGYL 500 MG ORAL TABLET 1 tablet PO BID for 7 days 2 FLAGYL 500 MG ORAL TABLET 336107 METRONIDAZOLE Inactive TYLENOL PM EXTRA STRENGTH 500-25 MG ORAL TABLET PRN 12/31 TYLENOL PM EXTRA STRENGTH 500-25 MG ORAL TABLET 7389060 DIPHEN HYDRAMINE-APAP (SLEEP) Inactive SKLICE 0.5 % EXTERNAL LOTION Apply 4oz to dry hair and rinse of after 10 minutes SKLICE 0.5 % EXTERNAL LOTION IVERMEC TIN Inactive FLAGYL 250 MG ORAL TABLET One tablet three times a day FLAGYL 250 MG ORAL TABLET 557377 METRONIDAZOLE Inactive AUGMENTIN 875-125 MG ORAL TABLET 1 po BID x 10 days 09/06/11 AUGMENTIN 875-125 MG ORAL TABLET 195296 AMOXICILLIN-POT CLAVULANATE Inactive Immunizations Vaccine Administration Date [...] 11 .0-15.0 platelet count 226 THOUSAND/UL 10*3/mm3 870-846 7302/05/11 mean platelet volume 10.3 fL 7.5-12.5 Blood [...] SCREEN, RBCW/REFL I , Drug Abuse Pnl 10-50/83594 - Blood bank antibody screen, serum NO ANTIBODIES DETECTED Lab Report: CBC, [id number] Gluc cari-1spec - Hematology leukocyte count, blood [...] 201 10^3/MM^3 10*3/mm3 142-424 Lab Report: Chlamydia/GC APTIMA/98813, H EPATITIS B S AG W/, HIV-1/2 Agn/ ... - Chemistry hepatitis B surface antigen NON-REACTIVE NON-RE ACTIVE rapid plasma reagin antibody titer NON-REACTIVE NON-REACTIVE Lab Report: Chlamydia/GC APTIMA/[id number], H EPATITIS B S AG W/, HIV-1/2 Agn/ ... - Lab chlamydia DNA probe NOT DETECTED NOT DETECTED Lab Report: Chlamydia/GC APTIMA/50726, H EPATITIS B S AG W/, HIV-1/2 [...] N Encounters Code Encounter Date Provider Facility CPT-76796 Level 4 Est. Patient 15:39:57 CDT Nayeli herrera [facility] CPT-10017 Level 3 Est. Patient 17:26:51 CDT Rosalina berg [facility] CPT-98388 Level 3 Est. Patient 17:31:05 STERILE PROC TECH Cintia Yosergio kemal [facility] Procedures Code Procedure Name Date Entry Date Standard Desc ription CPT-13284 Visit 13:02:58 STERILE PROC TECH CPT-54123 Visit 12:11:18 STERILE PROC TECH CPT-62504 Visit 10:38:39 CDT CPT-80160 Visit 08:28:55 CDT CPT-66612 Addl Vx - Ix admin via ID IM or jet injects without counseling by physician 18:18:11 CDT CPT-63438 Boostrix Intramuscular Suspension 5-2.5-18.5 201 04/01/05 18:18:11 CDT CPT-24496 First Vx - Ix admin via ID I M or jet injects without counseling by physician 18:18:11 CDT CPT-55861 Flulaval Intramuscular Injectable 18:18:11 CDT CPT-49383 Fluzone Thim Free 36mo and older 11:16:54 C DT CPT-07819 Tdap 7yrs or > 11:16:53 CDT CPT-25095 Visit 11:16:53 CDT CPT-67159 Visit 11:14:16 CDT CPT-66786 Visit 10:54:00 CDT CPT-97797 Visit 16:24:31 CDT CPT-18720 Sono OB comp > 14 weeks - XRAY USE ONLY 12:01:14 CDT CPT-37990 Visit 15:58:08 CDT CPT-76260 Visit 12:16:56 CDT CPT-44638J Sono OB comp <14 weeks ([place] Only) - X RAY USE ONLY 12:09:02 CDT CPT-51857 Spec Collection and Handling Fee 10:11:50 C DT CPT-27661 Visit 10:11:49 CDT CPT-J1050 Depo Provera 150 mg (Medroxyprogesterone) 08/30 16:06:30 STERILE PROC TECH CPT-92530 Abx/Therapy Injection 16:06:30 STERILE PROC TECH CPT-J1050 Depo Provera 150 mg (Medroxyprogesterone) 08/30 15:39:17 STERILE PROC TECH CPT-07772 Visit 15:01:38 CDT CPT-89753 Sono OB comp > 14 weeks 16:05:04 CDT 03/18 CPT-37333 Spec Collection and Handling Fee 10:45:40 C DT CPT-23738 Visit 10:45:40 CDT
--- OUTSIDE RECORDS SUMMARY | 2020-01-04 23:48 | XMS REPORT | Clinical Summary ---
Author Author Admin, Giuliana Flores Organization [facility] Address Unknown Phone Unavailable Allergies, Adverse [...] use disorder NEED FOR PROPHYLACTIC VACCINATION WITH YVQXMQH-ESGFH-J UBELLA (MMR) VACCINE V06.4 Resolved Cintia Pagan APRN Need for prophylactic vaccination with zimabid-kcetl-lhboefy [MMR] vaccine Contraceptive management V25.9 Resolved Taiwo [...] gestation of V28.9 Inactive 2017 Nayeli Duke MATERIAL HANDLING TECHNICIAN Encounter for unspecified scre ening of mother Abnormal biochemical finding on screening 796.5 20 09/03/10 Active Estela Clifton COUNTER CLERK TRACTOR PARTS Abnormal finding on antenata l screening Sinusitis, acute frontal 461.1 Active Rosalina Se berg MATERIAL HANDLING TECHNICIAN Acute frontal sinusitis GDM, diet controlled 648.80 Active Nayeli Duke MATERIAL HANDLING TECHNICIAN Abnormal glucose tolerance complicating , childbirth, or the puerperium, unspecified as to episode of care or not applicable 30 weeks gestation of V28.9 Inactive 2017 Nayeli Duke MATERIAL HANDLING TECHNICIAN Encounter for unspecified scre ening of [...] weeks gestation of V28.9 Active 2017 Dionne tSewart MD Encounter for unspecified scre ening of mother Std exposure V01.6 Active Dionne Stewart MD Contact with or exposure to venereal diseases care, delayed ICD-V23.7 Inactive Kristin taylor Latasha MATERIAL HANDLING TECHNICIAN NEED FOR PROPHYLACTIC VACCINATION WITH AZYAGJK-CAYIM-Y UBELLA (MMR) VACCINE ICD-V06.4 Inactive Cintia Pagan MATERIAL HANDLING TECHNICIAN Contraceptive management ICD-V25.9 Inactive Dionne Stewart MD follow-up, routine ICD-V24.2 Inacti ve Dionne Stewart MD Vaginal discharge ICD-623.5 Inactive Dionne spencer MD 29 weeks gestation of ICD-V28.9 Inac catalina Duke MATERIAL HANDLING TECHNICIAN Medication List Medication Instructions Start Date Stop Date Generic Name NDC Status Provider Patient Instruction DIFLUCAN 150 MG ORAL TABLET 1 tablet by mouth daily FLUCONAZOLE 04200396212 Active Megan Wise Active ACYCLOVIR 400 MG ORAL TABLET One tab PO BID until delivery 06/23 ACYCLOVIR 85144866217 Active Dionne Stewart MD Active SKLICE 0.5 % EXTERNAL LOTION Apply 4oz to dry hair and rinse of after 10 minutes IVERMECTIN 59111565513 No Longer Active Megan lowe Active TRUE METRIX BLOOD GLUCOSE TEST IN VITRO STRIP Check bl ood sugars four times a day as directed for gestational DM; O24.420 GLUC OSE BLOOD 59589162055 Active Nayeli Duke MATERIAL HANDLING TECHNICIAN Active TRUE METRIX GO GLUCOSE METER W/DEVICE KIT Check blood sugars as directed BLOOD GLUCOSE MONITORING SUPPL 11228740464 Active Nayeli Duke MATERIAL HANDLING TECHNICIAN Active LANCETS Test blood sugars as directed for gestational DM O24. 420 LANCETS 28028066043 Active Nayeliespinoza Duke APRN Activ e AUGMENTIN 875-125 MG ORAL TABLET 1 po BID x 10 days 20 09/06/11 AMOXICILLIN-POT CLAVULANATE 57727361705 No Longer Active Rosalina Bland MATERIAL HANDLING TECHNICIAN Active FERROUS SULFATE 325 (65 FE) MG ORAL TABLET 1 tablet daily 5 FERROUS SULFATE 58068336491 Active Estela Clifton LPN Active LORATADINE 10 MG ORAL TABLET 1 tablet by mouth daily LORATADINE 42352928817 Active Dionne Stewart MD Active TYLENOL PM EXTRA STRENGTH 500-25 MG ORAL TABLET PRN 12/31 DIPHENHYDRAMINE-APAP (SLEEP) 10401360887 No Longer Active Dionne Stewart MD Active CONCEPT DHA 53.5-38-1 MG ORAL CAPSULE one tab PO daily GHUFCV-COYIC-VYLL-FA-OMEGA 3 89908188434 Active Dionne Stewart MD Active FLAGYL 500 MG ORAL TABLET 1 tablet PO BID for 7 days 2 METRONIDAZOLE 58462172776 No Longer Active Dionne Stewart MD Active EQL FORMULA 28-0.8 MG ORAL TABLET 1 tablet daily 1 VIT-FE FUMARATE-FA 25897130492 No Longer Active Dionne Stewart MD A ctive CONCEPT DHA 53.5-38-1 MG ORAL CAPSULE one tab PO daily HHRHJX-UNVEA-PWCA-FA-OMEGA 3 44001615572 No Longer Active Dionne Stewart MD Active CYCLOBENZAPRINE HCL 10 MG ORAL TABLET 1 tablet by mout h three times daily as needed for muscle spasm/pain CYCLOBENZAPRINE HCL 69038693302 No Longer Active Dionne Stewart MD Active TRI-SPRINTEC 0.18/0.215/0.25 MG-35 MCG ORAL TABLET 1 po qd a s directed NORGESTIM-ETH ESTRAD TRIPHASIC 48906376748 N o Longer Active Dionne Stewart MD Active FLAGYL 250 MG ORAL TABLET One tablet three times a day METRONIDAZOLE 20463467090 No Longer Active Cintia Pagan APRN Active [facility] 28-0.8 MG ORAL TABLET 04/10 VIT-FE FUMARATE-FA 56214077837 No Longer Active Dionne Stewart MD Active [facility] 28-0.8 MG ORAL TABLET 04/10 [facility] 28-0.8 MG ORAL TABLET VIT-FE FUMARATE-FA Inactive TRI-SPRINTEC 0.18/0.215/0.25 MG-35 MCG ORAL TABLET 1 po qd a s directed TRI-SPRINTEC 0.18/0.215/0.25 MG-35 MCG ORAL TABL ET 747514 NORGESTIM-ETH ESTRAD TRIPHASIC Inactive CYCLOBENZAPRINE HCL 10 MG ORAL TABLET 1 tablet by mout h three times daily as needed for muscle spasm/pain CYCLOBENZAP RINE HCL 10 MG ORAL TABLET 431556 CYCLOBENZAPRINE HCL Inactive CONCEPT DHA 53.5-38-1 MG ORAL CAPSULE one tab PO daily CONCEPT DHA 53.5-38-1 MG ORAL CAPSULE GZEVRD-ITXXP-ENGM-FA-O BILLIE 3 Inactive FLAGYL 500 MG ORAL TABLET 1 tablet PO BID for 7 days 2 FLAGYL 500 MG ORAL TABLET 110347 METRONIDAZOLE Inactive TYLENOL PM EXTRA STRENGTH 500-25 MG ORAL TABLET PRN 12/31 TYLENOL PM EXTRA STRENGTH 500-25 MG ORAL TABLET 6817324 DIPHEN HYDRAMINE-APAP (SLEEP) Inactive SKLICE 0.5 % EXTERNAL LOTION Apply 4oz to dry hair and rinse of after 10 minutes SKLICE 0.5 % EXTERNAL LOTION IVERMEC TIN Inactive FLAGYL 250 MG ORAL TABLET One tablet three times a day FLAGYL 250 MG ORAL TABLET 499727 METRONIDAZOLE Inactive AUGMENTIN 875-125 MG ORAL TABLET 1 po BID x 10 days 09/06/11 AUGMENTIN 875-125 MG ORAL TABLET 321705 AMOXICILLIN-POT CLAVULANATE Inactive Immunizations Vaccine Administration Date [...] 11 .0-15.0 platelet count 226 THOUSAND/UL 10*3/mm3 951-019 1530/05/11 mean platelet volume 10.3 fL 7.5-12.5 Blood [...] ANTIBODY SCREEN, RBCW/REFL I , Drug Abuse Pn 10-50/91514 - Blood bank antibody screen, serum NO ANTIBODIES DETECTED Lab Report: CBC, [id number]--26mn Gluc cari-1spec - Hematology leukocyte count, blood [...] 201 10^3/MM^3 10*3/mm3 142-424 Lab Report: Chlamydia/GC APTIMA/03019, H EPATITIS B S AG W/, HIV-1/2 Agn/ ... - Chemistry hepatitis B surface antigen NON-REACTIVE NON-RE ACTIVE rapid plasma reagin antibody titer NON-REACTIVE NON-REACTIVE Lab Report: Chlamydia/GC APTIMA/05513, H EPATITIS B S AG W/, HIV-1/2 Agn/ ... - Lab chlamydia DNA probe NOT DETECTED NOT DETECTED Lab Report: Chlamydia/GC APTIMA/[id number], H EPATITIS B S AG W/, HIV-1/2 [...] N Encounters Code Encounter Date Provider Facility CPT-87697 Level 4 Est. Patient 15:39:57 CDT aNyeli Anders madelinejose [facility] CPT-18497 Level 3 Est. Patient 17:26:51 CDT Rosalina berg [facility] CPT-92813 Level 3 Est. Patient 17:31:05 CUSTOMER ACCOUNT SPECIALIST Cintialy sommer [facility] Procedures Code Procedure Name Date Entry Date Standard Desc ription CPT-82774 Visit 13:02:58 CUSTOMER ACCOUNT SPECIALIST CPT-86613 Visit 12:11:18 CUSTOMER ACCOUNT SPECIALIST CPT-70637 Visit 10:38:39 CDT CPT-78058 Visit 08:28:55 CDT CPT-04043 Addl Vx - Ix admin via ID IM or jet injects without counseling by physician 18:18:11 CDT CPT-96343 Boostrix Intramuscular Suspension 5-2.5-18.5 201 04/01/05 18:18:11 CDT CPT-14169 First Vx - Ix admin via ID I M or jet injects without counseling by physician 18:18:11 CDT CPT-75116 Flulaval Intramuscular Injectable 18:18:11 CDT CPT-67211 Fluzone Thim Free 36mo and older 11:16:54 C DT CPT-72209 Tdap 7yrs or > 11:16:53 CDT CPT-64693 Visit 11:16:53 CDT CPT-41517 Visit 11:14:16 CDT CPT-04249 Visit 10:54:00 CDT CPT-86862 Visit 16:24:31 CDT CPT-00824 Sono OB comp > 14 weeks - XRAY USE ONLY 12:01:14 CDT CPT-60203 Visit 15:58:08 CDT CPT-91363 Visit 12:16:56 CDT CPT-11424S Sono OB comp <14 weeks ([place] Only) - X RAY USE ONLY 12:09:02 CDT CPT-27337 Spec Collection and Handling Fee 10:11:50 C DT CPT-03668 Visit 10:11:49 CDT CPT-J1050 Depo Provera 150 mg (Medroxyprogesterone) 08/30 16:06:30 CUSTOMER ACCOUNT SPECIALIST CPT-03452 Abx/Therapy Injection 16:06:30 CUSTOMER ACCOUNT SPECIALIST CPT-J1050 Depo Provera 150 mg (Medroxyprogesterone) 08/30 15:39:17 CUSTOMER ACCOUNT SPECIALIST CPT-70017 Visit 15:01:38 CDT CPT-39130 Sono OB comp > 14 weeks 16:05:04 CDT 03/18 CPT-81425 Spec Collection and Handling Fee 10:45:40 C DT CPT-49437 Visit 10:45:40 CDT
--- OUTSIDE RECORDS SUMMARY | 2020-01-04 23:48 | XMS REPORT | Clinical Summary ---
Author Author Admin, Giuliana Flores Organization [facility] Address Unknown Phone Unavailable Allergies, Adverse Reactions, [...] use disorder NEED FOR PROPHYLACTIC VACCINATION WITH LUNPZJJ-VZVZX-T UBELLA (MMR) VACCINE V06.4 Resolved Cintia Pagan APRN Need for prophylactic vaccination with nemqegk-ngujn-ugdntgb [MMR] vaccine Contraceptive management V25.9 Resolved Taiwo [...] gestation of V28.9 Inactive 2017 Nayeli Duke VISION CARE ASSOCIATE Encounter for unspecified scre ening of mother Abnormal biochemical finding on screening 796.5 20 09/03/10 Active Estela Clifton FACILITY MANAGER HISTOLOGY Abnormal finding on antenata l screening Sinusitis, acute frontal 461.1 Active Rosalina berg VISION CARE ASSOCIATE Acute frontal sinusitis GDM, diet controlled 648.80 Active Nayeli Duke VISION CARE ASSOCIATE Abnormal glucose tolerance complicating , childbirth, or the puerperium, unspecified as to episode of care or not applicable 30 weeks gestation of V28.9 Inactive 2017 Nayeli Duke VISION CARE ASSOCIATE Encounter for unspecified scre ening of [...] care, delayed ICD-V23.7 Inactive Kristin taylor Latasha VISION CARE ASSOCIATE NEED FOR PROPHYLACTIC VACCINATION WITH HPOWCGA-IHYWX-D UBELLA (MMR) VACCINE ICD-V06.4 Inactive Cintia Latasha VISION CARE ASSOCIATE Contraceptive management ICD-V25.9 Inactive Dionne Stewart MD follow-up, routine ICD-V24.2 Inacti ve Dionne Stewart MD Vaginal discharge ICD-623.5 Inactive Dionne spencer MD 29 weeks gestation of ICD-V28.9 Inac catalina Duke VISION CARE ASSOCIATE Medication List Medication Instructions Start Date Stop Date Generic Name NDC Status Provider Patient Instruction DIFLUCAN 150 MG ORAL TABLET 1 tablet by mouth daily FLUCONAZOLE 56349301851 Active Megan Wise Active ACYCLOVIR 400 MG ORAL TABLET One tab PO BID until delivery 06/23 ACYCLOVIR 02163711714 Active Dionne Stewart MD Active SKLICE 0.5 % EXTERNAL LOTION Apply 4oz to dry hair and rinse of after 10 minutes IVERMECTIN 19891065950 No Longer Active Megan lowe Active TRUE METRIX BLOOD GLUCOSE TEST IN VITRO STRIP Check bl ood sugars four times a day as directed for gestational DM; O24.420 GLUC OSE BLOOD 79562146462 Active Nayeli Srikanth CHAVEZN Active TRUE METRIX GO GLUCOSE METER W/DEVICE KIT Check blood sugars as directed BLOOD GLUCOSE MONITORING SUPPL 34056528560 Active Nayeli Mobile VISION CARE ASSOCIATE Active LANCETS Test blood sugars as directed for gestational DM O24. 420 LANCETS 35451189669 Active Nayeliespinoza Duke APRN Activ e AUGMENTIN 875-125 MG ORAL TABLET 1 po BID x 10 days 20 09/06/11 AMOXICILLIN-POT CLAVULANATE 95488197704 No Longer Active Rosalina Bland VISION CARE ASSOCIATE Active FERROUS SULFATE 325 (65 FE) MG ORAL TABLET 1 tablet daily 5 FERROUS SULFATE 59815772237 Active Estela Clifton LPN Active LORATADINE 10 MG ORAL TABLET 1 tablet by mouth daily LORATADINE 39439324303 Active Dionne Stewart MD Active TYLENOL PM EXTRA STRENGTH 500-25 MG ORAL TABLET PRN 12/31 DIPHENHYDRAMINE-APAP (SLEEP) 00786337377 No Longer Active Dionne Stewart MD Active CONCEPT DHA 53.5-38-1 MG ORAL CAPSULE one tab PO daily LUAUOV-QJCRY-YLBQ-FA-OMEGA 3 45441040827 Active Dionne Stewart MD Active FLAGYL 500 MG ORAL TABLET 1 tablet PO BID for 7 days 2 METRONIDAZOLE 00636353728 No Longer Active Dionne Stewart MD Active EQL FORMULA 28-0.8 MG ORAL TABLET 1 tablet daily 1 VIT-FE FUMARATE-FA 99100542544 No Longer Active Dionne Stewart MD A ctive CONCEPT DHA 53.5-38-1 MG ORAL CAPSULE one tab PO daily YDDIDQ-DHFAZ-HDCU-FA-OMEGA 3 21213572411 No Longer Active Dionne Stewart MD Active CYCLOBENZAPRINE HCL 10 MG ORAL TABLET 1 tablet by mout h three times daily as needed for muscle spasm/pain CYCLOBENZAPRINE HCL 98620781509 No Longer Active Dionne Stewart MD Active TRI-SPRINTEC 0.18/0.215/0.25 MG-35 MCG ORAL TABLET 1 po qd a s directed NORGESTIM-ETH ESTRAD TRIPHASIC 41882886168 N o Longer Active Dionne Stewart MD Active FLAGYL 250 MG ORAL TABLET One tablet three times a day METRONIDAZOLE 82004202598 No Longer Active Cintia Latasha VISION CARE ASSOCIATE Active [facility] 28-0.8 MG ORAL TABLET 04/10 VIT-FE FUMARATE-FA 26242050055 No Longer Active Dionne Stewart MD Active [facility] 28-0.8 MG ORAL TABLET 04/10 [facility] 28-0.8 MG ORAL TABLET VIT-FE FUMARATE-FA Inactive TRI-SPRINTEC 0.18/0.215/0.25 MG-35 MCG ORAL TABLET 1 po qd a s directed TRI-SPRINTEC 0.18/0.215/0.25 MG-35 MCG ORAL TABL ET 684824 NORGESTIM-ETH ESTRAD TRIPHASIC Inactive CYCLOBENZAPRINE HCL 10 MG ORAL TABLET 1 tablet by mout h three times daily as needed for muscle spasm/pain CYCLOBENZAP RINE HCL 10 MG ORAL TABLET 204188 CYCLOBENZAPRINE HCL Inactive CONCEPT DHA 53.5-38-1 MG ORAL CAPSULE one tab PO daily CONCEPT DHA 53.5-38-1 MG ORAL CAPSULE UQBRZF-UOWNI-FCET-FA-O BILLIE 3 Inactive FLAGYL 500 MG ORAL TABLET 1 tablet PO BID for 7 days 2 FLAGYL 500 MG ORAL TABLET 487954 METRONIDAZOLE Inactive TYLENOL PM EXTRA STRENGTH 500-25 MG ORAL TABLET PRN 12/31 TYLENOL PM EXTRA STRENGTH 500-25 MG ORAL TABLET 3786243 DIPHEN HYDRAMINE-APAP (SLEEP) Inactive SKLICE 0.5 % EXTERNAL LOTION Apply 4oz to dry hair and rinse of after 10 minutes SKLICE 0.5 % EXTERNAL LOTION IVERMEC TIN Inactive FLAGYL 250 MG ORAL TABLET One tablet three times a day FLAGYL 250 MG ORAL TABLET 097066 METRONIDAZOLE Inactive AUGMENTIN 875-125 MG ORAL TABLET 1 po BID x 10 days 09/06/11 AUGMENTIN 875-125 MG ORAL TABLET 995715 AMOXICILLIN-POT CLAVULANATE Inactive Immunizations Vaccine Administration Date [...] 11 .0-15.0 platelet count 226 THOUSAND/UL 10*3/mm3 458-517 4447/05/11 mean platelet volume 10.3 fL 7.5-12.5 Blood [...] SCREEN, RBCW/REFL I , Drug Abuse Pnl 10-50/84972 - Blood bank antibody screen, serum NO ANTIBODIES DETECTED Lab Report: CBC, [id number] Gluc cari-1spec - Hematology leukocyte count, blood [...] 201 10^3/MM^3 10*3/mm3 142-424 Lab Report: Chlamydia/GC APTIMA/68021, H EPATITIS B S AG W/, HIV-1/2 Agn/ ... - Chemistry hepatitis B surface antigen NON-REACTIVE NON-RE ACTIVE rapid plasma reagin antibody titer NON-REACTIVE NON-REACTIVE Lab Report: Chlamydia/GC APTIMA/43048, H EPATITIS B S AG W/, HIV-1/2 Agn/ ... - Lab chlamydia DNA probe NOT DETECTED NOT DETECTED Lab Report: Chlamydia/GC APTIMA/[id number], H EPATITIS B S AG W/, HIV-1/2 [...] N Encounters Code Encounter Date Provider Facility CPT-55321 Level 4 Est. Patient 15:39:57 CDT Nayeli herrera [facility] CPT-22987 Level 3 Est. Patient 17:26:51 CDT Rosalina berg [facility] CPT-25089 Level 3 Est. Patient 17:31:05 ENERGY CONSERVATION TECHNICIAN Cintia Yosergio kemal [facility] Procedures Code Procedure Name Date Entry Date Standard Desc ription CPT-32886 Visit 13:02:58 ENERGY CONSERVATION TECHNICIAN CPT-07876 Visit 12:11:18 ENERGY CONSERVATION TECHNICIAN CPT-43692 Visit 10:38:39 CDT CPT-19913 Visit 08:28:55 CDT CPT-50131 Addl Vx - Ix admin via ID IM or jet injects without counseling by physician 18:18:11 CDT CPT-80250 Boostrix Intramuscular Suspension 5-2.5-18.5 201 04/01/05 18:18:11 CDT CPT-46780 First Vx - Ix admin via ID I M or jet injects without counseling by physician 18:18:11 CDT CPT-55890 Flulaval Intramuscular Injectable 18:18:11 CDT CPT-53113 Fluzone Thim Free 36mo and older 11:16:54 C DT CPT-87312 Tdap 7yrs or > 11:16:53 CDT CPT-08203 Visit 11:16:53 CDT CPT-42169 Visit 11:14:16 CDT CPT-98982 Visit 10:54:00 CDT CPT-18437 Visit 16:24:31 CDT CPT-33803 Sono OB comp > 14 weeks - XRAY USE ONLY 12:01:14 CDT CPT-68209 Visit 15:58:08 CDT CPT-37507 Visit 12:16:56 CDT CPT-14955B Sono OB comp <14 weeks ([place] Only) - X RAY USE ONLY 12:09:02 CDT CPT-34445 Spec Collection and Handling Fee 10:11:50 C DT CPT-12888 Visit 10:11:49 CDT CPT-J1050 Depo Provera 150 mg (Medroxyprogesterone) 08/30 16:06:30 ENERGY CONSERVATION TECHNICIAN CPT-81908 Abx/Therapy Injection 16:06:30 ENERGY CONSERVATION TECHNICIAN CPT-J1050 Depo Provera 150 mg (Medroxyprogesterone) 08/30 15:39:17 ENERGY CONSERVATION TECHNICIAN CPT-15472 Visit 15:01:38 CDT CPT-59828 Sono OB comp > 14 weeks 16:05:04 CDT 03/18 CPT-36057 Spec Collection and Handling Fee 10:45:40 C DT CPT-71149 Visit 10:45:40 CDT
--- OUTSIDE RECORDS SUMMARY | 2020-01-04 23:48 | XMS REPORT | Clinical Summary ---
Author Author Admin, Giuliana Flores Organization [facility] Address Unknown Phone Unavailable Allergies, Adverse [...] use disorder NEED FOR PROPHYLACTIC VACCINATION WITH IIKRRIB-MTYGF-G UBELLA (MMR) VACCINE V06.4 Resolved Cintia Pagan APRN Need for prophylactic vaccination with qyhexdx-iplps-rkqklln [MMR] vaccine Contraceptive management V25.9 Resolved Taiwo [...] gestation of V28.9 Inactive 2017 Nayeli Duke INDIRECT SALES EXEC Encounter for unspecified scre ening of mother Abnormal biochemical finding on screening 796.5 20 09/03/10 Active Estela Clifton HOSPITALITY COORDINATOR Abnormal finding on antenata l screening Sinusitis, acute frontal 461.1 Active Rosalina berg INDIRECT SALES EXEC Acute frontal sinusitis GDM, diet controlled 648.80 Active Nayeli Duke INDIRECT SALES EXEC Abnormal glucose tolerance complicating , childbirth, or the puerperium, unspecified as to episode of care or not applicable 30 weeks gestation of V28.9 Inactive 2017 Nayeli Duke INDIRECT SALES EXEC Encounter for unspecified scre ening of mother [...] care, delayed ICD-V23.7 Inactive Kristin taylor Latasha INDIRECT SALES EXEC NEED FOR PROPHYLACTIC VACCINATION WITH TACUFKJ-YKVHX-K UBELLA (MMR) VACCINE ICD-V06.4 Inactive Cintia Latasha INDIRECT SALES EXEC Contraceptive management ICD-V25.9 Inactive Dionne Stewart MD follow-up, routine ICD-V24.2 Inacti ve Dionne Stewart MD Vaginal discharge ICD-623.5 Inactive Dionne spencer MD 29 weeks gestation of ICD-V28.9 Inac catalina Duke INDIRECT SALES EXEC Medication List Medication Instructions Start Date Stop Date Generic Name NDC Status Provider Patient Instruction DIFLUCAN 150 MG ORAL TABLET 1 tablet by mouth daily FLUCONAZOLE 27320615985 Active Megan Wise Active ACYCLOVIR 400 MG ORAL TABLET One tab PO BID until delivery 06/23 ACYCLOVIR 29369652188 Active Dionne Stewart MD Active SKLICE 0.5 % EXTERNAL LOTION Apply 4oz to dry hair and rinse of after 10 minutes IVERMECTIN 61836565137 No Longer Active Megan lowe Active TRUE METRIX BLOOD GLUCOSE TEST IN VITRO STRIP Check bl ood sugars four times a day as directed for gestational DM; O24.420 GLUC OSE BLOOD 37011826567 Active Nayeli Srikanth CHAVEZN Active TRUE METRIX GO GLUCOSE METER W/DEVICE KIT Check blood sugars as directed BLOOD GLUCOSE MONITORING SUPPL 95245042262 Active Nayeli Erie INDIRECT SALES EXEC Active LANCETS Test blood sugars as directed for gestational DM O24. 420 LANCETS 30002683300 Active Nayeliespinoza Duke APRN Activ e AUGMENTIN 875-125 MG ORAL TABLET 1 po BID x 10 days 20 09/06/11 AMOXICILLIN-POT CLAVULANATE 15513694512 No Longer Active Rosalina Bland INDIRECT SALES EXEC Active FERROUS SULFATE 325 (65 FE) MG ORAL TABLET 1 tablet daily 5 FERROUS SULFATE 84765838314 Active Estela Clifton LPN Active LORATADINE 10 MG ORAL TABLET 1 tablet by mouth daily LORATADINE 80265930265 Active Dionne Stewart MD Active TYLENOL PM EXTRA STRENGTH 500-25 MG ORAL TABLET PRN 12/31 DIPHENHYDRAMINE-APAP (SLEEP) 62736085480 No Longer Active Dionne Stewart MD Active CONCEPT DHA 53.5-38-1 MG ORAL CAPSULE one tab PO daily HKETFV-OWORM-CFTH-FA-OMEGA 3 84054435373 Active Dionne Stewart MD Active FLAGYL 500 MG ORAL TABLET 1 tablet PO BID for 7 days 2 METRONIDAZOLE 72827781010 No Longer Active Dionne Stewart MD Active EQL FORMULA 28-0.8 MG ORAL TABLET 1 tablet daily 1 VIT-FE FUMARATE-FA 37345787151 No Longer Active Dionne Stewart MD A ctive CONCEPT DHA 53.5-38-1 MG ORAL CAPSULE one tab PO daily KNGHGP-QOOIE-DYQV-FA-OMEGA 3 46978889675 No Longer Active Dionne Stewart MD Active CYCLOBENZAPRINE HCL 10 MG ORAL TABLET 1 tablet by mout h three times daily as needed for muscle spasm/pain CYCLOBENZAPRINE HCL 82739810150 No Longer Active Dionne Stewart MD Active TRI-SPRINTEC 0.18/0.215/0.25 MG-35 MCG ORAL TABLET 1 po qd a s directed NORGESTIM-ETH ESTRAD TRIPHASIC 20703486633 N o Longer Active Dionne Stewart MD Active FLAGYL 250 MG ORAL TABLET One tablet three times a day METRONIDAZOLE 69288997921 No Longer Active Cintia Latasha INDIRECT SALES EXEC Active [facility] 28-0.8 MG ORAL TABLET 04/10 VIT-FE FUMARATE-FA 10125309200 No Longer Active Dionne Stewart MD Active [facility] 28-0.8 MG ORAL TABLET 04/10 [facility] 28-0.8 MG ORAL TABLET VIT-FE FUMARATE-FA Inactive TRI-SPRINTEC 0.18/0.215/0.25 MG-35 MCG ORAL TABLET 1 po qd a s directed TRI-SPRINTEC 0.18/0.215/0.25 MG-35 MCG ORAL TABL ET 292566 NORGESTIM-ETH ESTRAD TRIPHASIC Inactive CYCLOBENZAPRINE HCL 10 MG ORAL TABLET 1 tablet by mout h three times daily as needed for muscle spasm/pain CYCLOBENZAP RINE HCL 10 MG ORAL TABLET 307328 CYCLOBENZAPRINE HCL Inactive CONCEPT DHA 53.5-38-1 MG ORAL CAPSULE one tab PO daily CONCEPT DHA 53.5-38-1 MG ORAL CAPSULE OCOPTL-LIIQO-KPZE-FA-O BILLIE 3 Inactive FLAGYL 500 MG ORAL TABLET 1 tablet PO BID for 7 days 2 FLAGYL 500 MG ORAL TABLET 021402 METRONIDAZOLE Inactive TYLENOL PM EXTRA STRENGTH 500-25 MG ORAL TABLET PRN 12/31 TYLENOL PM EXTRA STRENGTH 500-25 MG ORAL TABLET 9815334 DIPHEN HYDRAMINE-APAP (SLEEP) Inactive SKLICE 0.5 % EXTERNAL LOTION Apply 4oz to dry hair and rinse of after 10 minutes SKLICE 0.5 % EXTERNAL LOTION IVERMEC TIN Inactive FLAGYL 250 MG ORAL TABLET One tablet three times a day FLAGYL 250 MG ORAL TABLET 352890 METRONIDAZOLE Inactive AUGMENTIN 875-125 MG ORAL TABLET 1 po BID x 10 days 09/06/11 AUGMENTIN 875-125 MG ORAL TABLET 294572 AMOXICILLIN-POT CLAVULANATE Inactive Immunizations Vaccine Administration Date [...] 11 .0-15.0 platelet count 226 THOUSAND/UL 10*3/mm3 585-003 6815/05/11 mean platelet volume 10.3 fL 7.5-12.5 Blood [...] SCREEN, RBCW/REFL I , Drug Abuse Pnl 10-50/35652 - Blood bank antibody screen, serum NO ANTIBODIES DETECTED Lab Report: CBC, [id number] Gluc cari-1spec - Hematology leukocyte count, blood [...] 201 10^3/MM^3 10*3/mm3 142-424 Lab Report: Chlamydia/GC APTIMA/[id number], H EPATITIS B S AG W/, HIV-1/2 Agn/ ... - Chemistry hepatitis B surface antigen NON-REACTIVE NON-RE ACTIVE rapid plasma reagin antibody titer NON-REACTIVE NON-REACTIVE Lab Report: Chlamydia/GC APTIMA/15097, H EPATITIS B S AG W/, HIV-1/2 Agn/ ... - Lab chlamydia DNA probe NOT DETECTED NOT DETECTED Lab Report: Chlamydia/GC APTIMA/[id number], H EPATITIS B S AG W/, HIV-1/2 [...] N Encounters Code Encounter Date Provider Facility CPT-75311 Level 4 Est. Patient 15:39:57 CDT Nayeli herrera [facility] CPT-79375 Level 3 Est. Patient 17:26:51 CDT Rosalina berg [facility] CPT-51437 Level 3 Est. Patient 17:31:05 FARM WORKER Cintia Yosergio kemal [facility] Procedures Code Procedure Name Date Entry Date Standard Desc ription CPT-96481 Visit 13:02:58 FARM WORKER CPT-51636 Visit 12:11:18 FARM WORKER CPT-01413 Visit 10:38:39 CDT CPT-33806 Visit 08:28:55 CDT CPT-04354 Addl Vx - Ix admin via ID IM or jet injects without counseling by physician 18:18:11 CDT CPT-84329 Boostrix Intramuscular Suspension 5-2.5-18.5 201 04/01/05 18:18:11 CDT CPT-51463 First Vx - Ix admin via ID I M or jet injects without counseling by physician 18:18:11 CDT CPT-12120 Flulaval Intramuscular Injectable 18:18:11 CDT CPT-61771 Fluzone Thim Free 36mo and older 11:16:54 C DT CPT-24553 Tdap 7yrs or > 11:16:53 CDT CPT-45551 Visit 11:16:53 CDT CPT-45299 Visit 11:14:16 CDT CPT-24484 Visit 10:54:00 CDT CPT-45825 Visit 16:24:31 CDT CPT-39363 Sono OB comp > 14 weeks - XRAY USE ONLY 12:01:14 CDT CPT-47093 Visit 15:58:08 CDT CPT-43816 Visit 12:16:56 CDT CPT-18729A Sono OB comp <14 weeks ([place] Only) - X RAY USE ONLY 12:09:02 CDT CPT-23453 Spec Collection and Handling Fee 10:11:50 C DT CPT-24001 Visit 10:11:49 CDT CPT-J1050 Depo Provera 150 mg (Medroxyprogesterone) 08/30 16:06:30 FARM WORKER CPT-80111 Abx/Therapy Injection 16:06:30 FARM WORKER CPT-J1050 Depo Provera 150 mg (Medroxyprogesterone) 08/30 15:39:17 FARM WORKER CPT-75582 Visit 15:01:38 CDT CPT-38451 Sono OB comp > 14 weeks 16:05:04 CDT 03/18 CPT-14191 Spec Collection and Handling Fee 10:45:40 C DT CPT-60163 Visit 10:45:40 CDT
--- OUTSIDE RECORDS SUMMARY | 2020-01-04 23:49 | XMS REPORT | Clinical Summary ---
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 SERVICING SPECIALIST Abnormal finding on antenata l screening Sinusitis, acute frontal 461.1 Active Rosalina Se berg TRANSPORTATION ASSISTANT Acute frontal sinusitis GDM, diet controlled 648.80 Active Nayeli Duke TRANSPORTATION ASSISTANT Abnormal glucose tolerance complicating , childbirth, or the puerperium, unspecified as to episode of care or not applicable 30 weeks gestation of V28.9 Inactive 2017 Nayeli Duke TRANSPORTATION ASSISTANT Encounter for unspecified scre ening of mother [...] care, delayed ICD-V23.7 Inactive Kristin taylor Latasha TRANSPORTATION ASSISTANT NEED FOR PROPHYLACTIC VACCINATION WITH XSDPQAY-EIWRH-I UBELLA (MMR) VACCINE ICD-V06.4 Inactive Cintia Pagan TRANSPORTATION ASSISTANT Contraceptive management ICD-V25.9 Inactive Dionne Stewart MD follow-up, routine ICD-V24.2 Inacti ve Dionne Stewart MD Vaginal discharge ICD-623.5 Inactive Dionne spencer MD 29 weeks gestation of ICD-V28.9 Inac tive Nayeli Duke APRN Medication List Medication Instructions Start Date Stop Date Generic Name ND Status Provider Patient Instruction ACYCLOVIR 400 MG ORAL TABLET One tab PO BID until delivery 06/23 ACYCLOVIR 91820274685 Active Dionne Stewart MD Active SKLICE 0.5 % EXTERNAL LOTION Apply 4oz to dry hair and rinse of after 10 minutes IVERMECTIN 97410110831 No Longer Active Megan lowe Active TRUE METRIX BLOOD GLUCOSE TEST IN VITRO STRIP Check bl ood sugars four times a day as directed for gestational DM; O24.420 GLUC OSE BLOOD 27108737823 Active Nayeli Duke APRN Active TRUE METRIX GO GLUCOSE METER W/DEVICE KIT Check blood sugars as directed BLOOD GLUCOSE MONITORING SUPPL 08593033037 Active Nayeli Srikanth MCMANUS Active LANCETS Test blood sugars as directed for gestational DM O24. 420 LANCETS 24762396459 Active Nayeli Srikanth MCMANUS Activ e AUGMENTIN 875-125 MG ORAL TABLET 1 po BID x 10 days 20 09/06/11 AMOXICILLIN-POT CLAVULANATE 01163878539 No Longer Active Rosalina Bland TRANSPORTATION ASSISTANT Active FERROUS SULFATE 325 (65 FE) MG ORAL TABLET 1 tablet daily 5 FERROUS SULFATE 36382425899 Active Estela Clifton LPN Active LORATADINE 10 MG ORAL TABLET 1 tablet by mouth daily LORATADINE 86348203972 Active Dionne Stewart MD Active TYLENOL PM EXTRA STRENGTH 500-25 MG ORAL TABLET PRN 12/31 DIPHENHYDRAMINE-APAP (SLEEP) 43766091299 No Longer Active Dionne Stewart MD Active CONCEPT DHA 53.5-38-1 MG ORAL CAPSULE one tab PO daily QUBXGO-GGFUC-CRPL-FA-OMEGA 3 94688385340 Active Dionne Stewart MD Active FLAGYL 500 MG ORAL TABLET 1 tablet PO BID for 7 days 2 METRONIDAZOLE 35449131727 No Longer Active Dionne Stewart MD Active EQL FORMULA 28-0.8 MG ORAL TABLET 1 tablet daily 1 VIT-FE FUMARATE-FA 43077716562 No Longer Active Dionne Stewart MD A ctive CONCEPT DHA 53.5-38-1 MG ORAL CAPSULE one tab PO daily YEHDTN-UMNCZ-KURQ-FA-OMEGA 3 09458063922 No Longer Active Dionne Stewart MD Active CYCLOBENZAPRINE HCL 10 MG ORAL TABLET 1 tablet by mout h three times daily as needed for muscle spasm/pain CYCLOBENZAPRINE HCL 60413826216 No Longer Active Dionne Stewart MD Active TRI-SPRINTEC 0.18/0.215/0.25 MG-35 MCG ORAL TABLET 1 po qd a s directed NORGESTIM-ETH ESTRAD TRIPHASIC 60500035586 N o Longer Active Dionne Stewart MD Active FLAGYL 250 MG ORAL TABLET One tablet three times a day METRONIDAZOLE 07469711982 No Longer Active Cintia Servandokemal MCMANUS Active [facility] 28-0.8 MG ORAL TABLET 04/10 VIT-FE FUMARATE-FA 01631119758 No Longer Active Dionne Stewart MD Active [facility] 28-0.8 MG ORAL TABLET 04/10 [facility] 28-0.8 MG ORAL TABLET VIT-FE FUMARATE-FA Inactive TRI-SPRINTEC 0.18/0.215/0.25 MG-35 MCG ORAL TABLET 1 po qd a s directed TRI-SPRINTEC 0.18/0.215/0.25 MG-35 MCG ORAL TABL ET 279339 NORGESTIM-ETH ESTRAD TRIPHASIC Inactive CYCLOBENZAPRINE HCL 10 MG ORAL TABLET 1 tablet by mout h three times daily as needed for muscle spasm/pain CYCLOBENZAP RINE HCL 10 MG ORAL TABLET 673252 CYCLOBENZAPRINE HCL Inactive CONCEPT DHA 53.5-38-1 MG ORAL CAPSULE one tab PO daily CONCEPT DHA 53.5-38-1 MG ORAL CAPSULE SQKFDW-TSGMY-HCBT-FA-O BILLIE 3 Inactive FLAGYL 500 MG ORAL TABLET 1 tablet PO BID for 7 days 2 FLAGYL 500 MG ORAL TABLET 332903 METRONIDAZOLE Inactive TYLENOL PM EXTRA STRENGTH 500-25 MG ORAL TABLET PRN 12/31 TYLENOL PM EXTRA STRENGTH 500-25 MG ORAL TABLET 4408350 DIPHEN HYDRAMINE-APAP (SLEEP) Inactive SKLICE 0.5 % EXTERNAL LOTION Apply 4oz to dry hair and rinse of after 10 minutes SKLICE 0.5 % EXTERNAL LOTION IVERMEC TIN Inactive FLAGYL 250 MG ORAL TABLET One tablet three times a day FLAGYL 250 MG ORAL TABLET 842463 METRONIDAZOLE Inactive AUGMENTIN 875-125 MG ORAL TABLET 1 po BID x 10 days 20 09/06/11 AUGMENTIN 875-125 MG ORAL TABLET 080661 AMOXICILLIN-POT CLAVULANATE Inactive Immunizations Vaccine Administration Date [...] (INCL ... - Hematology Blood type O leukocyte count, blood 8.6 THOUSAND/UL 10*3/mm3 3.8-10.8 [...] 11 .0-15.0 platelet count 226 THOUSAND/UL 10*3/mm3 646-333 1080/05/11 mean platelet volume 10.3 fL 7.5-12.5 Lab [...] SCREEN, RBCW/REFL I , Drug Abuse Pnl 10-50/51368 - Blood bank antibody screen, serum NO ANTIBODIES DETECTED Lab Report: CBC, [id number] Gluc cari-1spec - Hematology leukocyte count, blood [...] 201 10^3/MM^3 10*3/mm3 142-424 Lab Report: Chlamydia/GC APTIMA/64556, H EPATITIS B S AG W/, HIV-1/2 Agn/ ... - Chemistry hepatitis B surface antigen NON-REACTIVE NON-RE ACTIVE rapid plasma reagin antibody titer NON-REACTIVE NON-REACTIVE Lab Report: Chlamydia/GC APTIMA/77978, H EPATITIS B S AG W/, HIV-1/2 Agn/ ... - Lab chlamydia DNA probe NOT DETECTED NOT DETECTED Lab Report: Chlamydia/GC APTIMA/63383, H EPATITIS B S AG W/, HIV-1/2 [...] 1.020 1.000-1.030 pH, urine, semiquantitative 8.5 5.0-8.5 Office Visit: Unknown - Urinalysis protein, urine, semiquantitative (dipstick) N nitrite, urine, semiquantitative N glucose, urine, semiquantitative N Office Visit: 4 wk f/u and quad [...] N Encounters Code Encounter Date Provider Facility CPT-77020 Level 4 Est. Patient 15:39:57 CDT Nayeli herrera [facility] CPT-67515 Level 3 Est. Patient 17:26:51 CDT Rosalina berg [facility] CPT-05795 Level 3 Est. Patient 17:31:05 NEEDLE MOLDER Cintia sommer [facility] Procedures Code Procedure Name Date Entry Date Standard Desc ription CPT-77967 Visit 13:02:58 NEEDLE MOLDER CPT-95786 Visit 12:11:18 NEEDLE MOLDER CPT-00247 Visit 10:38:39 CDT CPT-04510 Visit 08:28:55 CDT CPT-60455 Addl Vx - Ix admin via ID IM or jet injects without counseling by physician 18:18:11 CDT CPT-87789 Boostrix Intramuscular Suspension 5-2.5-18.5 201 04/01/05 18:18:11 CDT CPT-76241 First Vx - Ix admin via ID I M or jet injects without counseling by physician 18:18:11 CDT CPT-21566 Flulaval Intramuscular Injectable 18:18:11 CDT CPT-30254 Fluzone Thim Free 36mo and older 11:16:54 C DT CPT-98336 Tdap 7yrs or > 11:16:53 CDT CPT-02503 Visit 11:16:53 CDT CPT-23911 Visit 11:14:16 CDT CPT-36858 Visit 10:54:00 CDT CPT-98570 Visit 16:24:31 CDT CPT-82480 Sono OB comp > 14 weeks - XRAY USE ONLY 12:01:14 CDT CPT-69421 Visit 15:58:08 CDT CPT-10012 Visit 12:16:56 CDT CPT-36481H Sono OB comp <14 weeks ([place] Only) - X RAY USE ONLY 12:09:02 CDT CPT-42149 Spec Collection and Handling Fee 10:11:50 C DT CPT-28779 Visit 10:11:49 CDT CPT-J1050 Depo Provera 150 mg (Medroxyprogesterone) 08/30 16:06:30 NEEDLE MOLDER CPT-62895 Abx/Therapy Injection 16:06:30 NEEDLE MOLDER CPT-J1050 Depo Provera 150 mg (Medroxyprogesterone) 08/30 15:39:17 NEEDLE MOLDER CPT-24711 Visit 15:01:38 CDT CPT-41196 Sono OB comp > 14 weeks 16:05:04 CDT 03/18 CPT-89624 Spec Collection and Handling Fee 10:45:40 C DT CPT-11284 Visit 10:45:40 CDT
--- OUTSIDE RECORDS SUMMARY | 2020-01-04 23:49 | XMS REPORT | Clinical Summary ---
Author Author Admin, Giuliana Flores Organization [facility] Address Unknown Phone Unavailable Allergies, Adverse Reactions, [...] use disorder NEED FOR PROPHYLACTIC VACCINATION WITH XSJUMBX-CCOYU-H UBELLA (MMR) VACCINE V06.4 Resolved Cintia Pagan APRN Need for prophylactic vaccination with mpmotyr-hcpoa-pfgszqi [MMR] vaccine Contraceptive management V25.9 Resolved Taiwo [...] gestation of V28.9 Inactive 2017 Nayeli Duke POLICE DISTRICT SWITCHBOARD OPERATOR Encounter for unspecified scre ening of mother Abnormal biochemical finding on screening 796.5 20 09/03/10 Active Estela Clifton ORDER MAKE UP CLERK Abnormal finding on antenata l screening Sinusitis, acute frontal 461.1 Active Rosalina berg [employer]ICE DISTRICT SWITCHBOARD OPERATOR Acute frontal sinusitis GDM, diet controlled 648.80 Active Nayeli Duke [employer] DISTRICT SWITCHBOARD OPERATOR Abnormal glucose tolerance complicating , childbirth, or the puerperium, unspecified as to episode of care or not applicable 30 weeks gestation of V28.9 Inactive 2017 Nayeli Duke POLICE DISTRICT SWITCHBOARD OPERATOR Encounter for unspecified scre ening of [...] care, delayed ICD-V23.7 Inactive Kristin taylor Latasha POLICE DISTRICT SWITCHBOARD OPERATOR NEED FOR PROPHYLACTIC VACCINATION WITH RVQTCZW-VGWAK-M UBELLA (MMR) VACCINE ICD-V06.4 Inactive Cintia Latasha POLICE DISTRICT SWITCHBOARD OPERATOR Contraceptive management ICD-V25.9 Inactive Dionne Stewart MD follow-up, routine ICD-V24.2 Inacti ve Dionne Stewart MD Vaginal discharge ICD-623.5 Inactive Dionne spencer MD 29 weeks gestation of ICD-V28.9 Inac catalina Duke POLICE DISTRICT SWITCHBOARD OPERATOR Medication List Medication Instructions Start Date Stop Date Generic Name NDC Status Provider Patient Instruction DIFLUCAN 150 MG ORAL TABLET 1 tablet by mouth daily FLUCONAZOLE 64948652556 Active Megan Wise Active ACYCLOVIR 400 MG ORAL TABLET One tab PO BID until delivery 06/23 ACYCLOVIR 00789141440 Active Dionne Stewart MD Active SKLICE 0.5 % EXTERNAL LOTION Apply 4oz to dry hair and rinse of after 10 minutes IVERMECTIN 95569126881 No Longer Active Megan lowe Active TRUE METRIX BLOOD GLUCOSE TEST IN VITRO STRIP Check bl ood sugars four times a day as directed for gestational DM; O24.420 GLUC OSE BLOOD 98857846250 Active Nayeli Srikanth CHAVEZN Active TRUE METRIX GO GLUCOSE METER W/DEVICE KIT Check blood sugars as directed BLOOD GLUCOSE MONITORING SUPPL 79630279750 Active Nayeli Le Flore POLICE DISTRICT SWITCHBOARD OPERATOR Active LANCETS Test blood sugars as directed for gestational DM O24. 420 LANCETS 46061097945 Active Nayeliespinoza Duke APRN Activ e AUGMENTIN 875-125 MG ORAL TABLET 1 po BID x 10 days 20 09/06/11 AMOXICILLIN-POT CLAVULANATE 82312370839 No Longer Active Rosalina Bland [employer]ICE DISTRICT SWITCHBOARD OPERATOR Active FERROUS SULFATE 325 (65 FE) MG ORAL TABLET 1 tablet daily 5 FERROUS SULFATE 70257810685 Active Estela Clifton LPN Active LORATADINE 10 MG ORAL TABLET 1 tablet by mouth daily LORATADINE 50432984552 Active Dionne Stewart MD Active TYLENOL PM EXTRA STRENGTH 500-25 MG ORAL TABLET PRN 12/31 DIPHENHYDRAMINE-APAP (SLEEP) 65350313865 No Longer Active Dionne Stewart MD Active CONCEPT DHA 53.5-38-1 MG ORAL CAPSULE one tab PO daily QLNUUI-EGKIC-NFOF-FA-OMEGA 3 67247373082 Active Dionne Stewart MD Active FLAGYL 500 MG ORAL TABLET 1 tablet PO BID for 7 days 2 METRONIDAZOLE 95866400080 No Longer Active Dionne Stewart MD Active EQL FORMULA 28-0.8 MG ORAL TABLET 1 tablet daily 1 VIT-FE FUMARATE-FA 25795566297 No Longer Active Dionne Stewart MD A ctive CONCEPT DHA 53.5-38-1 MG ORAL CAPSULE one tab PO daily MVFWEO-FNOVU-NVNW-FA-OMEGA 3 25675537542 No Longer Active Dionne Stewart MD Active CYCLOBENZAPRINE HCL 10 MG ORAL TABLET 1 tablet by mout h three times daily as needed for muscle spasm/pain CYCLOBENZAPRINE HCL 12681124678 No Longer Active Dionne Stewart MD Active TRI-SPRINTEC 0.18/0.215/0.25 MG-35 MCG ORAL TABLET 1 po qd a s directed NORGESTIM-ETH ESTRAD TRIPHASIC 66804737747 N o Longer Active Dionne Stewart MD Active FLAGYL 250 MG ORAL TABLET One tablet three times a day METRONIDAZOLE 13666614968 No Longer Active Cintia Latasha POLICE DISTRICT SWITCHBOARD OPERATOR Active [facility] 28-0.8 MG ORAL TABLET 04/10 VIT-FE FUMARATE-FA 38100438492 No Longer Active Dionne Stewart MD Active [facility] 28-0.8 MG ORAL TABLET 04/10 [facility] 28-0.8 MG ORAL TABLET VIT-FE FUMARATE-FA Inactive TRI-SPRINTEC 0.18/0.215/0.25 MG-35 MCG ORAL TABLET 1 po qd a s directed TRI-SPRINTEC 0.18/0.215/0.25 MG-35 MCG ORAL TABL ET 859800 NORGESTIM-ETH ESTRAD TRIPHASIC Inactive CYCLOBENZAPRINE HCL 10 MG ORAL TABLET 1 tablet by mout h three times daily as needed for muscle spasm/pain CYCLOBENZAP RINE HCL 10 MG ORAL TABLET 877659 CYCLOBENZAPRINE HCL Inactive CONCEPT DHA 53.5-38-1 MG ORAL CAPSULE one tab PO daily CONCEPT DHA 53.5-38-1 MG ORAL CAPSULE AJUBIX-BWSLV-JWWN-FA-O BILLIE 3 Inactive FLAGYL 500 MG ORAL TABLET 1 tablet PO BID for 7 days 2 FLAGYL 500 MG ORAL TABLET 884397 METRONIDAZOLE Inactive TYLENOL PM EXTRA STRENGTH 500-25 MG ORAL TABLET PRN 12/31 TYLENOL PM EXTRA STRENGTH 500-25 MG ORAL TABLET 1709596 DIPHEN HYDRAMINE-APAP (SLEEP) Inactive SKLICE 0.5 % EXTERNAL LOTION Apply 4oz to dry hair and rinse of after 10 minutes SKLICE 0.5 % EXTERNAL LOTION IVERMEC TIN Inactive FLAGYL 250 MG ORAL TABLET One tablet three times a day FLAGYL 250 MG ORAL TABLET 635328 METRONIDAZOLE Inactive AUGMENTIN 875-125 MG ORAL TABLET 1 po BID x 10 days 09/06/11 AUGMENTIN 875-125 MG ORAL TABLET 358814 AMOXICILLIN-POT CLAVULANATE Inactive Immunizations Vaccine Administration Date [...] 11 .0-15.0 platelet count 226 THOUSAND/UL 10*3/mm3 598-998 7206/05/11 mean platelet volume 10.3 fL 7.5-12.5 Blood [...] SCREEN, RBCW/REFL I , Drug Abuse Pnl 10-50/53720 - Blood bank antibody screen, serum NO ANTIBODIES DETECTED Lab Report: CBC, [id number] Gluc cari-1spec - Hematology leukocyte count, blood [...] 201 10^3/MM^3 10*3/mm3 142-424 Lab Report: Chlamydia/GC APTIMA/33021, H EPATITIS B S AG W/, HIV-1/2 Agn/ ... - Chemistry hepatitis B surface antigen NON-REACTIVE NON-RE ACTIVE rapid plasma reagin antibody titer NON-REACTIVE NON-REACTIVE Lab Report: Chlamydia/GC APTIMA/19404, H EPATITIS B S AG W/, HIV-1/2 Agn/ ... - Lab chlamydia DNA probe NOT DETECTED NOT DETECTED Lab Report: Chlamydia/GC APTIMA/07716, H EPATITIS B S AG W/, HIV-1/2 [...] N Encounters Code Encounter Date Provider Facility CPT-65781 Level 4 Est. Patient 15:39:57 CDT Nayeli herrera [facility] CPT-31799 Level 3 Est. Patient 17:26:51 CDT Rosalina berg [facility] CPT-34615 Level 3 Est. Patient 17:31:05 OVERHEAD WORKER Cintia Yosergio kemal [facility] Procedures Code Procedure Name Date Entry Date Standard Desc ription CPT-27683 Visit 13:02:58 OVERHEAD WORKER CPT-39652 Visit 12:11:18 OVERHEAD WORKER CPT-21306 Visit 10:38:39 CDT CPT-26018 Visit 08:28:55 CDT CPT-03607 Addl Vx - Ix admin via ID IM or jet injects without counseling by physician 18:18:11 CDT CPT-56635 Boostrix Intramuscular Suspension 5-2.5-18.5 201 04/01/05 18:18:11 CDT CPT-35065 First Vx - Ix admin via ID I M or jet injects without counseling by physician 18:18:11 CDT CPT-33492 Flulaval Intramuscular Injectable 18:18:11 CDT CPT-42512 Fluzone Thim Free 36mo and older 11:16:54 C DT CPT-74517 Tdap 7yrs or > 11:16:53 CDT CPT-19552 Visit 11:16:53 CDT CPT-76966 Visit 11:14:16 CDT CPT-27752 Visit 10:54:00 CDT CPT-79258 Visit 16:24:31 CDT CPT-29981 Sono OB comp > 14 weeks - XRAY USE ONLY 12:01:14 CDT CPT-97822 Visit 15:58:08 CDT CPT-72069 Visit 12:16:56 CDT CPT-88512A Sono OB comp <14 weeks ([place] Only) - X RAY USE ONLY 12:09:02 CDT CPT-54300 Spec Collection and Handling Fee 10:11:50 C DT CPT-38712 Visit 10:11:49 CDT CPT-J1050 Depo Provera 150 mg (Medroxyprogesterone) 08/30 16:06:30 OVERHEAD WORKER CPT-75913 Abx/Therapy Injection 16:06:30 OVERHEAD WORKER CPT-J1050 Depo Provera 150 mg (Medroxyprogesterone) 08/30 15:39:17 OVERHEAD WORKER CPT-97073 Visit 15:01:38 CDT CPT-18188 Sono OB comp > 14 weeks 16:05:04 CDT 03/18 CPT-55940 Spec Collection and Handling Fee 10:45:40 C DT CPT-38795 Visit 10:45:40 CDT
--- OUTSIDE RECORDS SUMMARY | 2020-01-04 23:49 | XMS REPORT | Clinical Summary ---
Author Author Admin, Giuliana Flores Organization [facility] Address Unknown Phone Unavailable Allergies, Adverse Reactions, [...] use disorder NEED FOR PROPHYLACTIC VACCINATION WITH YCQZJBL-BRXPV-D UBELLA (MMR) VACCINE V06.4 Resolved Cintia Pagan APRN Need for prophylactic vaccination with bmhjejb-qdjsq-rgtsicr [MMR] vaccine Contraceptive management V25.9 Resolved Taiwo [...] gestation of V28.9 Inactive 2017 Nayeli Duke MANAGER GROUP Encounter for unspecified scre ening of mother Abnormal biochemical finding on screening 796.5 20 09/03/10 Active Estela Clifton ADVERTISING SALES CONSULTANT Abnormal finding on antenata l screening Sinusitis, acute frontal 461.1 Active Rosalina berg MANAGER GROUP Acute frontal sinusitis GDM, diet controlled 648.80 Active Nayeli Duke MANAGER GROUP Abnormal glucose tolerance complicating , childbirth, or the puerperium, unspecified as to episode of care or not applicable 30 weeks gestation of V28.9 Inactive 2017 Nayeli Duke MANAGER GROUP Encounter for unspecified scre ening of mother [...] care, delayed ICD-V23.7 Inactive Kristin taylor Latasha MANAGER GROUP NEED FOR PROPHYLACTIC VACCINATION WITH LXWARDY-PVJRW-X UBELLA (MMR) VACCINE ICD-V06.4 Inactive Cintia Latasha MANAGER GROUP Contraceptive management ICD-V25.9 Inactive Dionne Stewart MD follow-up, routine ICD-V24.2 Inacti ve Dionne Stewart MD Vaginal discharge ICD-623.5 Inactive Dionne spencer MD 29 weeks gestation of ICD-V28.9 Inac catalina Duke MANAGER GROUP Medication List Medication Instructions Start Date Stop Date Generic Name NDC Status Provider Patient Instruction DIFLUCAN 150 MG ORAL TABLET 1 tablet by mouth daily FLUCONAZOLE 40616215208 Active Megan Wise Active ACYCLOVIR 400 MG ORAL TABLET One tab PO BID until delivery 06/23 ACYCLOVIR 39892318168 Active Dionne Stewart MD Active SKLICE 0.5 % EXTERNAL LOTION Apply 4oz to dry hair and rinse of after 10 minutes IVERMECTIN 08207842859 No Longer Active Megan lowe Active TRUE METRIX BLOOD GLUCOSE TEST IN VITRO STRIP Check bl ood sugars four times a day as directed for gestational DM; O24.420 GLUC OSE BLOOD 08660013023 Active Nayeli Srikanth CHAVEZN Active TRUE METRIX GO GLUCOSE METER W/DEVICE KIT Check blood sugars as directed BLOOD GLUCOSE MONITORING SUPPL 92283354261 Active Nayeli Eagle MANAGER GROUP Active LANCETS Test blood sugars as directed for gestational DM O24. 420 LANCETS 04430958405 Active Nayeliespinoza Duke APRN Activ e AUGMENTIN 875-125 MG ORAL TABLET 1 po BID x 10 days 20 09/06/11 AMOXICILLIN-POT CLAVULANATE 54280297249 No Longer Active Rosalina Bland MANAGER GROUP Active FERROUS SULFATE 325 (65 FE) MG ORAL TABLET 1 tablet daily 5 FERROUS SULFATE 68272126486 Active Estela Clifton LPN Active LORATADINE 10 MG ORAL TABLET 1 tablet by mouth daily LORATADINE 23975136248 Active Dionne Stewart MD Active TYLENOL PM EXTRA STRENGTH 500-25 MG ORAL TABLET PRN 12/31 DIPHENHYDRAMINE-APAP (SLEEP) 44518769420 No Longer Active Dionne Stewart MD Active CONCEPT DHA 53.5-38-1 MG ORAL CAPSULE one tab PO daily GNRJYA-DKPYO-ZHED-FA-OMEGA 3 55731089595 Active Dionne Stewart MD Active FLAGYL 500 MG ORAL TABLET 1 tablet PO BID for 7 days 2 METRONIDAZOLE 32908510861 No Longer Active Dionne Stewart MD Active EQL FORMULA 28-0.8 MG ORAL TABLET 1 tablet daily 1 VIT-FE FUMARATE-FA 92160015745 No Longer Active Dionne Stewart MD A ctive CONCEPT DHA 53.5-38-1 MG ORAL CAPSULE one tab PO daily XTZCUJ-EVJTJ-TNEV-FA-OMEGA 3 56164884621 No Longer Active Dionne Stewart MD Active CYCLOBENZAPRINE HCL 10 MG ORAL TABLET 1 tablet by mout h three times daily as needed for muscle spasm/pain CYCLOBENZAPRINE HCL 09823016278 No Longer Active Dionne Stewart MD Active TRI-SPRINTEC 0.18/0.215/0.25 MG-35 MCG ORAL TABLET 1 po qd a s directed NORGESTIM-ETH ESTRAD TRIPHASIC 75020824923 N o Longer Active Dionne Stewart MD Active FLAGYL 250 MG ORAL TABLET One tablet three times a day METRONIDAZOLE 13090953661 No Longer Active Cintia Latasha MANAGER GROUP Active [facility] 28-0.8 MG ORAL TABLET 04/10 VIT-FE FUMARATE-FA 07940665028 No Longer Active Dionne Stewart MD Active [facility] 28-0.8 MG ORAL TABLET 04/10 [facility] 28-0.8 MG ORAL TABLET VIT-FE FUMARATE-FA Inactive TRI-SPRINTEC 0.18/0.215/0.25 MG-35 MCG ORAL TABLET 1 po qd a s directed TRI-SPRINTEC 0.18/0.215/0.25 MG-35 MCG ORAL TABL ET 611011 NORGESTIM-ETH ESTRAD TRIPHASIC Inactive CYCLOBENZAPRINE HCL 10 MG ORAL TABLET 1 tablet by mout h three times daily as needed for muscle spasm/pain CYCLOBENZAP RINE HCL 10 MG ORAL TABLET 257547 CYCLOBENZAPRINE HCL Inactive CONCEPT DHA 53.5-38-1 MG ORAL CAPSULE one tab PO daily CONCEPT DHA 53.5-38-1 MG ORAL CAPSULE QYNTPK-LDVGE-YWYN-FA-O BILLIE 3 Inactive FLAGYL 500 MG ORAL TABLET 1 tablet PO BID for 7 days 2 FLAGYL 500 MG ORAL TABLET 356932 METRONIDAZOLE Inactive TYLENOL PM EXTRA STRENGTH 500-25 MG ORAL TABLET PRN 12/31 TYLENOL PM EXTRA STRENGTH 500-25 MG ORAL TABLET 2716167 DIPHEN HYDRAMINE-APAP (SLEEP) Inactive SKLICE 0.5 % EXTERNAL LOTION Apply 4oz to dry hair and rinse of after 10 minutes SKLICE 0.5 % EXTERNAL LOTION IVERMEC TIN Inactive FLAGYL 250 MG ORAL TABLET One tablet three times a day FLAGYL 250 MG ORAL TABLET 690922 METRONIDAZOLE Inactive AUGMENTIN 875-125 MG ORAL TABLET 1 po BID x 10 days 09/06/11 AUGMENTIN 875-125 MG ORAL TABLET 237011 AMOXICILLIN-POT CLAVULANATE Inactive Immunizations Vaccine Administration Date [...] 11 .0-15.0 platelet count 226 THOUSAND/UL 10*3/mm3 072-695 8496/05/11 mean platelet volume 10.3 fL 7.5-12.5 Blood [...] SCREEN, RBCW/REFL I , Drug Abuse Pnl 10-50/91916 - Blood bank antibody screen, serum NO ANTIBODIES DETECTED Lab Report: CBC, [id number] Gluc cari-1spec - Hematology hematocrit, blood 31.1 % 37.0-47.0 hemoglobin, blood 10.5 g/dL 12.0-16.0 erythrocyte (RBC) count 3.30 10^6/MM^3 10*6/mm3 3.80-5.8 0 leukocyte count, blood 10.2 10^3/MM^3 10*3/mm3 4.6-10.2 mean corpuscular hemoglobin, RBC 31.9 pg 27. 0-31.2 mean corpuscular hemoglobin concentration, RBC 33.9 G/DL % 31.8-35.4 red blood cell distribution width 11.1 % 13 .0-18.0 platelet count 201 10^3/MM^3 10*3/mm3 902-317 9288/09/21 mean corpuscular volume, RBC 94 fL 80-97 Lab Report: Chlamydia/GC APTIMA/49118, H EPATITIS B S AG W/, HIV-1/2 Agn/ ... - Chemistry hepatitis B surface antigen NON-REACTIVE NON-RE ACTIVE rapid plasma reagin antibody titer NON-REACTIVE NON-REACTIVE Lab Report: Chlamydia/GC APTIMA/81472, H EPATITIS B S AG W/, HIV-1/2 Agn/ ... - Lab chlamydia DNA probe NOT DETECTED NOT DETECTED Lab Report: Chlamydia/GC APTIMA/21393, H EPATITIS B S AG W/, HIV-1/2 [...] N Encounters Code Encounter Date Provider Facility CPT-02183 Level 4 Est. Patient 15:39:57 CDT Nayeli herrera [facility] [place] CPT-82861 Level 3 Est. Patient 17:26:51 CDT Rosalina berg [facility] [place] CPT-02544 Level 3 Est. Patient 17:31:05 CLINICAL MENTAL HEALTH COUNSELOR Cintia Yosergio kemal [facility] [place] Procedures Code Procedure Name Date Entry Date Standard Desc ription CPT-26759 Visit 13:02:58 CLINICAL MENTAL HEALTH COUNSELOR CPT-37976 Visit 12:11:18 CLINICAL MENTAL HEALTH COUNSELOR CPT-80130 Visit 10:38:39 CDT CPT-03744 Visit 08:28:55 CDT CPT-06343 Addl Vx - Ix admin via ID IM or jet injects without counseling by physician 18:18:11 CDT CPT-43103 Boostrix Intramuscular Suspension 5-2.5-18.5 201 04/01/05 18:18:11 CDT CPT-64350 First Vx - Ix admin via ID I M or jet injects without counseling by physician 18:18:11 CDT CPT-62090 Flulaval Intramuscular Injectable 18:18:11 CDT CPT-51435 Fluzone Thim Free 36mo and older 11:16:54 C DT CPT-50869 Tdap 7yrs or > 11:16:53 CDT CPT-70696 Visit 11:16:53 CDT CPT-33969 Visit 11:14:16 CDT CPT-88539 Visit 10:54:00 CDT CPT-31611 Visit 16:24:31 CDT CPT-66010 Sono OB comp > 14 weeks - XRAY USE ONLY 12:01:14 CDT CPT-08199 Visit 15:58:08 CDT CPT-15962 Visit 12:16:56 CDT CPT-36576M Sono OB comp <14 weeks ([place] Only) - X RAY USE ONLY 12:09:02 CDT CPT-72213 Spec Collection and Handling Fee 10:11:50 C DT CPT-40098 Visit 10:11:49 CDT CPT-J1050 Depo Provera 150 mg (Medroxyprogesterone) 08/30 16:06:30 CLINICAL MENTAL HEALTH COUNSELOR CPT-22551 Abx/Therapy Injection 16:06:30 CLINICAL MENTAL HEALTH COUNSELOR CPT-J1050 Depo Provera 150 mg (Medroxyprogesterone) 08/30 15:39:17 CLINICAL MENTAL HEALTH COUNSELOR CPT-74650 Visit 15:01:38 CDT CPT-12553 Sono OB comp > 14 weeks 16:05:04 CDT 03/18 CPT-58054 Spec Collection and Handling Fee 10:45:40 C DT CPT-66481 Visit 10:45:40 CDT
--- OUTSIDE RECORDS SUMMARY | 2020-01-04 23:49 | XMS REPORT | Clinical Summary ---
Author Author Admin, Giuliana Flores Organization [facility] Address Unknown Phone Unavailable Allergies, [...] use disorder NEED FOR PROPHYLACTIC VACCINATION WITH XAMRQQB-INOWM-M UBELLA (MMR) VACCINE V06.4 Resolved Cintia Pagan APRN Need for prophylactic vaccination with aqroizr-efsom-rmkznmv [MMR] vaccine Contraceptive management V25.9 Resolved Taiwo [...] gestation of V28.9 Inactive 2017 Nayeli uDke MANNEQUIN DECORATOR Encounter for unspecified scre ening of mother Abnormal biochemical finding on screening 796.5 20 09/03/10 Active Estela Clifton METAL RIVET MACHINE OPERATOR Abnormal finding on antenata l screening Sinusitis, acute frontal 461.1 Active Rosalina berg MANNEQUIN DECORATOR Acute frontal sinusitis GDM, diet controlled 648.80 Active Nayeli Duke MANNEQUIN DECORATOR Abnormal glucose tolerance complicating , childbirth, or the puerperium, unspecified as to episode of care or not applicable 30 weeks gestation of V28.9 Inactive 2017 Nayeli Duke MANNEQUIN DECORATOR Encounter for unspecified scre ening of mother [...] care, delayed ICD-V23.7 Inactive Kristin taylor Latasha MANNEQUIN DECORATOR NEED FOR PROPHYLACTIC VACCINATION WITH VKORMOY-ADUJM-P UBELLA (MMR) VACCINE ICD-V06.4 Inactive Cintia Latasha MANNEQUIN DECORATOR Contraceptive management ICD-V25.9 Inactive Dionne Stewart MD follow-up, routine ICD-V24.2 Inacti ve Dionne Stewart MD Vaginal discharge ICD-623.5 Inactive Dionne spencer MD 29 weeks gestation of ICD-V28.9 Inac tive Nayeli Duke MANNEQUIN DECORATOR Medication List Medication Instructions Start Date Stop Date Generic Name NDC Status Provider Patient Instruction ACYCLOVIR 400 MG ORAL TABLET One tab PO BID until delivery 06/23 ACYCLOVIR 43148291412 Active Dionen Stewart MD Active SKLICE 0.5 % EXTERNAL LOTION Apply 4oz to dry hair and rinse of after 10 minutes IVERMECTIN 66279677590 No Longer Active Megan lowe Active TRUE METRIX BLOOD GLUCOSE TEST IN VITRO STRIP Check bl ood sugars four times a day as directed for gestational DM; O24.420 GLUC OSE BLOOD 06348035405 Active Nayeli Duke APRN Active TRUE METRIX GO GLUCOSE METER W/DEVICE KIT Check blood sugars as directed BLOOD GLUCOSE MONITORING SUPPL 33264400851 Active Nayeli Duek APRN Active LANCETS Test blood sugars as directed for gestational DM O24. 420 LANCETS 03094676077 Active Nayeli Duke APRN Activ e AUGMENTIN 875-125 MG ORAL TABLET 1 po BID x 10 days 20 09/06/11 AMOXICILLIN-POT CLAVULANATE 59471967168 No Longer Active Rosalina Bland MANNEQUIN DECORATOR Active FERROUS SULFATE 325 (65 FE) MG ORAL TABLET 1 tablet daily 5 FERROUS SULFATE 99912609835 Active Estela Clifton LPN Active LORATADINE 10 MG ORAL TABLET 1 tablet by mouth daily LORATADINE 51081791778 Active Dionne Stewart MD Active TYLENOL PM EXTRA STRENGTH 500-25 MG ORAL TABLET PRN 12/31 DIPHENHYDRAMINE-APAP (SLEEP) 64044181566 No Longer Active Dionne Stewart MD Active CONCEPT DHA 53.5-38-1 MG ORAL CAPSULE one tab PO daily BFZPKG-YIKPP-QGWB-FA-OMEGA 3 75108330831 Active Dionne Stewart MD Active FLAGYL 500 MG ORAL TABLET 1 tablet PO BID for 7 days 2 METRONIDAZOLE 38725307463 No Longer Active Dionne Stewart MD Active EQL FORMULA 28-0.8 MG ORAL TABLET 1 tablet daily 1 VIT-FE FUMARATE-FA 21381138625 No Longer Active Dionne Stewart MD A ctive CONCEPT DHA 53.5-38-1 MG ORAL CAPSULE one tab PO daily OMZWQD-OOIXC-AXKH-FA-OMEGA 3 92581576190 No Longer Active Dionne Stewart MD Active CYCLOBENZAPRINE HCL 10 MG ORAL TABLET 1 tablet by mout h three times daily as needed for muscle spasm/pain CYCLOBENZAPRINE HCL 29850032910 No Longer Active Dionne Stewart MD Active TRI-SPRINTEC 0.18/0.215/0.25 MG-35 MCG ORAL TABLET 1 po qd a s directed NORGESTIM-ETH ESTRAD TRIPHASIC 62360074279 N o Longer Active Dionne Stewart MD Active FLAGYL 250 MG ORAL TABLET One tablet three times a day METRONIDAZOLE 42908774654 No Longer Active Cintia Pagan MANNEQUIN DECORATOR Active [facility] 28-0.8 MG ORAL TABLET 04/10 VIT-FE FUMARATE-FA 41775378778 No Longer Active Dionne Stewart MD Active [facility] 28-0.8 MG ORAL TABLET 04/10 [facility] 28-0.8 MG ORAL TABLET VIT-FE FUMARATE-FA Inactive TRI-SPRINTEC 0.18/0.215/0.25 MG-35 MCG ORAL TABLET 1 po qd a s directed TRI-SPRINTEC 0.18/0.215/0.25 MG-35 MCG ORAL TABL ET 593836 NORGESTIM-ETH ESTRAD TRIPHASIC Inactive CYCLOBENZAPRINE HCL 10 MG ORAL TABLET 1 tablet by mout h three times daily as needed for muscle spasm/pain CYCLOBENZAP RINE HCL 10 MG ORAL TABLET 274022 CYCLOBENZAPRINE HCL Inactive CONCEPT DHA 53.5-38-1 MG ORAL CAPSULE one tab PO daily CONCEPT DHA 53.5-38-1 MG ORAL CAPSULE WHLVXI-EUXRE-EAKC-FA-O BILLIE 3 Inactive FLAGYL 500 MG ORAL TABLET 1 tablet PO BID for 7 days 2 FLAGYL 500 MG ORAL TABLET 442423 METRONIDAZOLE Inactive TYLENOL PM EXTRA STRENGTH 500-25 MG ORAL TABLET PRN 12/31 TYLENOL PM EXTRA STRENGTH 500-25 MG ORAL TABLET 4319206 DIPHEN HYDRAMINE-APAP (SLEEP) Inactive SKLICE 0.5 % EXTERNAL LOTION Apply 4oz to dry hair and rinse of after 10 minutes SKLICE 0.5 % EXTERNAL LOTION IVERMEC TIN Inactive FLAGYL 250 MG ORAL TABLET One tablet three times a day FLAGYL 250 MG ORAL TABLET 881116 METRONIDAZOLE Inactive AUGMENTIN 875-125 MG ORAL TABLET 1 po BID x 10 days 20 09/06/11 AUGMENTIN 875-125 MG ORAL TABLET 268253 AMOXICILLIN-POT CLAVULANATE Inactive Immunizations Vaccine Administration Date [...] 11 .0-15.0 platelet count 226 THOUSAND/UL 10*3/mm3 608-108 9308/05/11 mean platelet volume 10.3 fL 7.5-12.5 Blood [...] SCREEN, RBCW/REFL I , Drug Abuse Pnl 10-50/55776 - Blood bank antibody screen, serum NO ANTIBODIES DETECTED Lab Report: CBC, [id number] Gluc cari-1spec - Hematology leukocyte count, blood [...] 201 10^3/MM^3 10*3/mm3 142-424 Lab Report: Chlamydia/GC APTIMA/[id number], H EPATITIS B S AG W/, HIV-1/2 Agn/ ... - Chemistry hepatitis B surface antigen NON-REACTIVE NON-RE ACTIVE rapid plasma reagin antibody titer NON-REACTIVE NON-REACTIVE Lab Report: Chlamydia/GC APTIMA/[id number], H EPATITIS B S AG W/, HIV-1/2 Agn/ ... - Lab chlamydia DNA probe NOT DETECTED NOT DETECTED Lab Report: Chlamydia/GC APTIMA/41593, H EPATITIS B S AG W/, HIV-1/2 [...] N Encounters Code Encounter Date Provider Facility CPT-29805 Level 4 Est. Patient 15:39:57 CDT Nayeli herrera [facility] CPT-61660 Level 3 Est. Patient 17:26:51 CDT Rosalina berg [facility] CPT-20409 Level 3 Est. Patient 17:31:05 DIRECTOR UNIVERSITY Cintia sommer [facility] Procedures Code Procedure Name Date Entry Date Standard Desc ription CPT-17818 Visit 13:02:58 DIRECTOR UNIVERSITY CPT-29779 Visit 12:11:18 DIRECTOR UNIVERSITY CPT-35874 Visit 10:38:39 CDT CPT-01367 Visit 08:28:55 CDT CPT-04279 Addl Vx - Ix admin via ID IM or jet injects without counseling by physician 18:18:11 CDT CPT-27674 Boostrix Intramuscular Suspension 5-2.5-18.5 201 04/01/05 18:18:11 CDT CPT-69995 First Vx - Ix admin via ID I M or jet injects without counseling by physician 18:18:11 CDT CPT-48203 Flulaval Intramuscular Injectable 18:18:11 CDT CPT-28613 Fluzone Thim Free 36mo and older 11:16:54 C DT CPT-13517 Tdap 7yrs or > 11:16:53 CDT CPT-34363 Visit 11:16:53 CDT CPT-01200 Visit 11:14:16 CDT CPT-03743 Visit 10:54:00 CDT CPT-55685 Visit 16:24:31 CDT CPT-58097 Sono OB comp > 14 weeks - XRAY USE ONLY 12:01:14 CDT CPT-35156 Visit 15:58:08 CDT CPT-00408 Visit 12:16:56 CDT CPT-95589T Sono OB comp <14 weeks ([place] Only) - X RAY USE ONLY 12:09:02 CDT CPT-99969 Spec Collection and Handling Fee 10:11:50 C DT CPT-32450 Visit 10:11:49 CDT CPT-J1050 Depo Provera 150 mg (Medroxyprogesterone) 08/30 16:06:30 DIRECTOR UNIVERSITY CPT-96189 Abx/Therapy Injection 16:06:30 DIRECTOR UNIVERSITY CPT-J1050 Depo Provera 150 mg (Medroxyprogesterone) 08/30 15:39:17 DIRECTOR UNIVERSITY CPT-97016 Visit 15:01:38 CDT CPT-87959 Sono OB comp > 14 weeks 16:05:04 CDT 03/18 CPT-16882 Spec Collection and Handling Fee 10:45:40 C DT CPT-35367 Visit 10:45:40 CDT
--- OUTSIDE RECORDS SUMMARY | 2020-01-04 23:50 | XMS REPORT | Clinical Summary ---
[...] use disorder NEED FOR PROPHYLACTIC VACCINATION WITH ETXXKJU-XIJMC-F UBELLA (MMR) VACCINE V06.4 Resolved Cintia Pagan APRN Need for prophylactic vaccination with vazyjur-ofzdk-oidnwyw [MMR] vaccine Contraceptive management V25.9 Resolved Taiwo [...] gestation of V28.9 Inactive 2017 Nayeli Duke MRI TECHNOLOGIST Encounter for unspecified scre ening of mother Abnormal biochemical finding on screening 796.5 20 09/03/10 Active Estela Clifton RECORDS SECTION SUPERVISOR Abnormal finding on antenata l screening Sinusitis, acute frontal 461.1 Active Rosalina berg MRI TECHNOLOGIST Acute frontal sinusitis GDM, diet controlled 648.80 Active Nayeli Duke MRI TECHNOLOGIST Abnormal glucose tolerance complicating , childbirth, or the puerperium, unspecified as to episode of care or not applicable 30 weeks gestation of V28.9 Inactive 2017 Nayeli Duke MRI TECHNOLOGIST Encounter for unspecified scre ening of mother 31 weeks gestation of V28.9 Inactive 2017 Dionne Stewart MD Encounter for unspecified scre ening of mother 33 weeks gestation of V28.9 Inactive 2017 Dionne Stewart MD Encounter for unspecified scre ening of mother 35 weeks gestation of V28.9 Active 2017 Dionne Stewart MD Encounter for unspecified scre ening of mother Std exposure V01.6 Active Dionne Stewart MD Contact with or exposure to venereal diseases care, delayed ICD-V23.7 Inactive Kristin taylor Latasha MRI TECHNOLOGIST NEED FOR PROPHYLACTIC VACCINATION WITH VUJONWN-IEYWJ-J UBELLA (MMR) VACCINE ICD-V06.4 Inactive Cintia Latasha MRI TECHNOLOGIST Contraceptive management ICD-V25.9 Inactive Dionne Stewart MD follow-up, routine ICD-V24.2 Inacti ve Dionne Stewart MD Vaginal discharge ICD-623.5 Inactive Dionne spencer MD 29 weeks gestation of ICD-V28.9 Inac tive Nayeli Duke APRN Medication List Medication Instructions Start Date Stop Date Generic Name NDC Status Provider Patient Instruction ACYCLOVIR 400 MG ORAL TABLET One tab PO BID until delivery 06/23 ACYCLOVIR 96061398025 Active Dionne Stewart MD Active SKLICE 0.5 % EXTERNAL LOTION Apply 4oz to dry hair and rinse of after 10 minutes IVERMECTIN 22039939979 No Longer Active Megan lowe Active TRUE METRIX BLOOD GLUCOSE TEST IN VITRO STRIP Check bl ood sugars four times a day as directed for gestational DM; O24.420 GLUC OSE BLOOD 80709779153 Active Nayeli Duke APRN Active TRUE METRIX GO GLUCOSE METER W/DEVICE KIT Check blood sugars as directed BLOOD GLUCOSE MONITORING SUPPL 06651043243 Active Nayeli Duke APRN Active LANCETS Test blood sugars as directed for gestational DM O24. 420 LANCETS 33775034624 Active Nayeli Wilbarger MRI TECHNOLOGIST Activ e AUGMENTIN 875-125 MG ORAL TABLET 1 po BID x 10 days 09/06/11 AMOXICILLIN-POT CLAVULANATE 63616886232 No Longer Active Rosalina Edwina MRI TECHNOLOGIST Active FERROUS SULFATE 325 (65 FE) MG ORAL TABLET 1 tablet daily 5 FERROUS SULFATE 91935251101 Active Estela Clifton RECORDS SECTION SUPERVISOR Active LORATADINE 10 MG ORAL TABLET 1 tablet by mouth daily LORATADINE 99185537398 Active Dionne Stewart MD Active TYLENOL PM EXTRA STRENGTH 500-25 MG ORAL TABLET PRN 12/31 DIPHENHYDRAMINE-APAP (SLEEP) 48010175950 No Longer Active Dionne Stewart MD Active CONCEPT DHA 53.5-38-1 MG ORAL CAPSULE one tab PO daily VROPPZ-KBBVM-HDEO-FA-OMEGA 3 24407673597 Active Dionne Stewart MD Active FLAGYL 500 MG ORAL TABLET 1 tablet PO BID for 7 days 2 METRONIDAZOLE 54105406089 No Longer Active Dionne Stewart MD Active EQL FORMULA 28-0.8 MG ORAL TABLET 1 tablet daily 1 VIT-FE FUMARATE-FA 95464778437 No Longer Active Dionne Stewart MD A ctive CONCEPT DHA 53.5-38-1 MG ORAL CAPSULE one tab PO daily ADXKKX-QPIBA-GPTX-FA-OMEGA 3 27091372024 No Longer Active Dionne Stewart MD Active CYCLOBENZAPRINE HCL 10 MG ORAL TABLET 1 tablet by mout h three times daily as needed for muscle spasm/pain CYCLOBENZAPRINE HCL 56401964597 No Longer Active Dionne Stewart MD Active TRI-SPRINTEC 0.18/0.215/0.25 MG-35 MCG ORAL TABLET 1 po qd a s directed NORGESTIM-ETH ESTRAD TRIPHASIC 91540572612 N o Longer Active Dionne Stewart MD Active FLAGYL 250 MG ORAL TABLET One tablet three times a day METRONIDAZOLE 09137831905 No Longer Active Cintia Alkemal YONATHAN Active [facility] 28-0.8 MG ORAL TABLET 04/10 VIT-FE FUMARATE-FA 53111620751 No Longer Active Dionne Stewart MD Active [facility] 28-0.8 MG ORAL TABLET 04/10 [facility] 28-0.8 MG ORAL TABLET VIT-FE FUMARATE-FA Inactive TRI-SPRINTEC 0.18/0.215/0.25 MG-35 MCG ORAL TABLET 1 po qd a s directed TRI-SPRINTEC 0.18/0.215/0.25 MG-35 MCG ORAL TABL ET 058662 NORGESTIM-ETH ESTRAD TRIPHASIC Inactive CYCLOBENZAPRINE HCL 10 MG ORAL TABLET 1 tablet by mout h three times daily as needed for muscle spasm/pain CYCLOBENZAP RINE HCL 10 MG ORAL TABLET 754711 CYCLOBENZAPRINE HCL Inactive CONCEPT DHA 53.5-38-1 MG ORAL CAPSULE one tab PO daily CONCEPT DHA 53.5-38-1 MG ORAL CAPSULE WZRWXS-KAPJJ-TCVX-FA-O BILLIE 3 Inactive FLAGYL 500 MG ORAL TABLET 1 tablet PO BID for 7 days 2 FLAGYL 500 MG ORAL TABLET 911850 METRONIDAZOLE Inactive TYLENOL PM EXTRA STRENGTH 500-25 MG ORAL TABLET PRN 12/31 TYLENOL PM EXTRA STRENGTH 500-25 MG ORAL TABLET 1768693 DIPHEN HYDRAMINE-APAP (SLEEP) Inactive SKLICE 0.5 % EXTERNAL LOTION Apply 4oz to dry hair and rinse of after 10 minutes SKLICE 0.5 % EXTERNAL LOTION IVERMEC TIN Inactive FLAGYL 250 MG ORAL TABLET One tablet three times a day FLAGYL 250 MG ORAL TABLET 409024 METRONIDAZOLE Inactive AUGMENTIN 875-125 MG ORAL TABLET 1 po BID x 10 days 20 09/06/11 AUGMENTIN 875-125 MG ORAL TABLET 182380 AMOXICILLIN-POT CLAVULANATE Inactive Immunizations Vaccine Administration Date Value Standard Koko cription hepatitis B vaccine series yes hepat itis B vaccine, unspecified formulation hepatitis B vaccine series no hepat itis B vaccine, unspecified formulation Vital Signs Date Name Value Unit Range Description blood pressure, diastolic 61 mm[Hg] BP miramontes [...] 11 .0-15.0 platelet count 226 THOUSAND/UL 10*3/mm3 901-222 7741/05/11 mean platelet volume 10.3 fL 7.5-12.5 Lab [...] SCREEN, RBCW/REFL I , Drug Abuse Pnl 10-50/92664 - Blood bank antibody screen, serum NO ANTIBODIES DETECTED Lab Report: CBC, [id number] Gluc cari-1spec - Hematology leukocyte count, blood [...] 201 10^3/MM^3 10*3/mm3 142-424 Lab Report: Chlamydia/GC APTIMA/17676, H EPATITIS B S AG W/, HIV-1/2 Agn/ ... - Chemistry hepatitis B surface antigen NON-REACTIVE NON-RE ACTIVE rapid plasma reagin antibody titer NON-REACTIVE NON-REACTIVE Lab Report: Chlamydia/GC APTIMA/72128, H EPATITIS B S AG W/, HIV-1/2 Agn/ ... - Lab chlamydia DNA probe NOT DETECTED NOT DETECTED Lab Report: Chlamydia/GC APTIMA/54498, H EPATITIS B S AG W/, HIV-1/2 [...] pH, urine, semiquantitative 8.5 5.0-8.5 Office Visit: 4 wk f/u and [...] N Encounters Code Encounter Date Provider Facility CPT-36746 Level 4 Est. Patient 15:39:57 CDT Nayeli herrera [facility] CPT-57540 Level 3 Est. Patient 17:26:51 CDT Rosalina berg [facility] CPT-67997 Level 3 Est. Patient 17:31:05 CUSTOM DECORATING CONSULTANT Cintia sommer [facility] Procedures Code Procedure Name Date Entry Date Standard Desc ription CPT-11559 Visit 12:11:18 CUSTOM DECORATING CONSULTANT CPT-71158 Visit 10:38:39 CDT CPT-28606 Visit 08:28:55 CDT CPT-03077 Addl Vx - Ix admin via ID IM or jet injects without counseling by physician 18:18:11 CDT CPT-48704 Boostrix Intramuscular Suspension 5-2.5-18.5 201 04/01/05 18:18:11 CDT CPT-25944 First Vx - Ix admin via ID I M or jet injects without counseling by physician 18:18:11 CDT CPT-91672 Flulaval Intramuscular Injectable 18:18:11 CDT CPT-73207 Fluzone Thim Free 36mo and older 11:16:54 C DT CPT-68645 Tdap 7yrs or > 11:16:53 CDT CPT-46267 Visit 11:16:53 CDT CPT-66063 Visit 11:14:16 CDT CPT-03459 Visit 10:54:00 CDT CPT-26437 Visit 16:24:31 CDT CPT-16620 Sono OB comp > 14 weeks - XRAY USE ONLY 12:01:14 CDT CPT-61243 Visit 15:58:08 CDT CPT-43099 Visit 12:16:56 CDT CPT-61759M Sono OB comp <14 weeks ([place] Only) - X RAY USE ONLY 12:09:02 CDT CPT-70141 Spec Collection and Handling Fee 10:11:50 C DT CPT-54636 Visit 10:11:49 CDT CPT-J1050 Depo Provera 150 mg (Medroxyprogesterone) 08/30 16:06:30 CUSTOM DECORATING CONSULTANT CPT-82785 Abx/Therapy Injection 16:06:30 CUSTOM DECORATING CONSULTANT CPT-J1050 Depo Provera 150 mg (Medroxyprogesterone) 08/30 15:39:17 CUSTOM DECORATING CONSULTANT CPT-74415 Visit 15:01:38 CDT CPT-99111 Sono OB comp > 14 weeks 16:05:04 CDT 03/18 CPT-14227 Spec Collection and Handling Fee 10:45:40 C DT CPT-34347 Visit 10:45:40 CDT
--- OUTSIDE RECORDS SUMMARY | 2020-01-04 23:50 | XMS REPORT | Clinical Summary ---
Author Author Admin, Giuliana Flores Organization [facility] Address Unknown Phone Unavailable Allergies, Adverse Reactions, [...] use disorder NEED FOR PROPHYLACTIC VACCINATION WITH MISQXJD-REYNX-Q UBELLA (MMR) VACCINE V06.4 Resolved Cintia Pagan APRN Need for prophylactic vaccination with oyhdqjh-tddty-isccemo [MMR] vaccine Contraceptive management V25.9 Resolved Taiwo [...] gestation of V28.9 Inactive 2017 Nayeli Duke COFOUNDER Encounter for unspecified scre ening of mother Abnormal biochemical finding on screening 796.5 20 09/03/10 Active Estela Clifton STAINED GLASS INSTALLER Abnormal finding on antenata l screening Sinusitis, acute frontal 461.1 Active Rosalina Se berg COFOUNDER Acute frontal sinusitis GDM, diet controlled 648.80 Active Nayeli Duke COFOUNDER Abnormal glucose tolerance complicating , childbirth, or the puerperium, unspecified as to episode of care or not applicable 30 weeks gestation of V28.9 Inactive 2017 Nayeli Duek COFOUNDER Encounter for unspecified scre ening of mother [...] venereal diseases care, delayed ICD-V23.7 Inactive Kristin talyor Latasha COFOUNDER NEED FOR PROPHYLACTIC VACCINATION WITH BCASVHF-LLGPT-Y UBELLA (MMR) VACCINE ICD-V06.4 Inactive Cintia Pagan COFOUNDER Contraceptive management ICD-V25.9 Inactive Dionne Stewart MD follow-up, routine ICD-V24.2 Inacti ve Dionne Stewart MD Vaginal discharge ICD-623.5 Inactive Dionne spencer MD 29 weeks gestation of ICD-V28.9 Inac tive Nayeli Duke APRN Medication List Medication Instructions Start Date Stop Date Generic Name ND Status Provider Patient Instruction ACYCLOVIR 400 MG ORAL TABLET One tab PO BID until delivery 06/23 ACYCLOVIR 75076303915 Active Dionne Stewart MD Active SKLICE 0.5 % EXTERNAL LOTION Apply 4oz to dry hair and rinse of after 10 minutes IVERMECTIN 88604270909 No Longer Active Megan lowe Active TRUE METRIX BLOOD GLUCOSE TEST IN VITRO STRIP Check bl ood sugars four times a day as directed for gestational DM; O24.420 GLUC OSE BLOOD 71452611187 Active Nayeli Duke APRN Active TRUE METRIX GO GLUCOSE METER W/DEVICE KIT Check blood sugars as directed BLOOD GLUCOSE MONITORING SUPPL 76497217062 Active Nayeli Srikanth MCMANUS Active LANCETS Test blood sugars as directed for gestational DM O24. 420 LANCETS 89659215201 Active Nayeli Srikanth MCMANUS Activ e AUGMENTIN 875-125 MG ORAL TABLET 1 po BID x 10 days 20 09/06/11 AMOXICILLIN-POT CLAVULANATE 47640514470 No Longer Active Rosalina Bland COFOUNDER Active FERROUS SULFATE 325 (65 FE) MG ORAL TABLET 1 tablet daily 5 FERROUS SULFATE 76232765308 Active Estela Clifton LPN Active LORATADINE 10 MG ORAL TABLET 1 tablet by mouth daily LORATADINE 62739308486 Active Dionne Stewart MD Active TYLENOL PM EXTRA STRENGTH 500-25 MG ORAL TABLET PRN 12/31 DIPHENHYDRAMINE-APAP (SLEEP) 43287351018 No Longer Active Dionne Stewart MD Active CONCEPT DHA 53.5-38-1 MG ORAL CAPSULE one tab PO daily UEENYW-BEWIN-MWBU-FA-OMEGA 3 18095589369 Active Dionne Stewart MD Active FLAGYL 500 MG ORAL TABLET 1 tablet PO BID for 7 days 2 METRONIDAZOLE 01370249317 No Longer Active Dionne Stewart MD Active EQL FORMULA 28-0.8 MG ORAL TABLET 1 tablet daily 1 VIT-FE FUMARATE-FA 51130756274 No Longer Active Dionne Stewart MD A ctive CONCEPT DHA 53.5-38-1 MG ORAL CAPSULE one tab PO daily MEXKTK-TFGJO-LIIR-FA-OMEGA 3 67313328386 No Longer Active Dionne Stewart MD Active CYCLOBENZAPRINE HCL 10 MG ORAL TABLET 1 tablet by mout h three times daily as needed for muscle spasm/pain CYCLOBENZAPRINE HCL 84661880388 No Longer Active Dionne Stewart MD Active TRI-SPRINTEC 0.18/0.215/0.25 MG-35 MCG ORAL TABLET 1 po qd a s directed NORGESTIM-ETH ESTRAD TRIPHASIC 37613317242 N o Longer Active Dionne Stewart MD Active FLAGYL 250 MG ORAL TABLET One tablet three times a day METRONIDAZOLE 38758258825 No Longer Active Cintia Servandokemal MCMANUS Active [facility] 28-0.8 MG ORAL TABLET 04/10 VIT-FE FUMARATE-FA 04311813131 No Longer Active Dionne Stewart MD Active [facility] 28-0.8 MG ORAL TABLET 04/10 [facility] 28-0.8 MG ORAL TABLET VIT-FE FUMARATE-FA Inactive TRI-SPRINTEC 0.18/0.215/0.25 MG-35 MCG ORAL TABLET 1 po qd a s directed TRI-SPRINTEC 0.18/0.215/0.25 MG-35 MCG ORAL TABL ET 172557 NORGESTIM-ETH ESTRAD TRIPHASIC Inactive CYCLOBENZAPRINE HCL 10 MG ORAL TABLET 1 tablet by mout h three times daily as needed for muscle spasm/pain CYCLOBENZAP RINE HCL 10 MG ORAL TABLET 569497 CYCLOBENZAPRINE HCL Inactive CONCEPT DHA 53.5-38-1 MG ORAL CAPSULE one tab PO daily CONCEPT DHA 53.5-38-1 MG ORAL CAPSULE TOZJOC-GEAYO-AIPU-FA-O BILLIE 3 Inactive FLAGYL 500 MG ORAL TABLET 1 tablet PO BID for 7 days 2 FLAGYL 500 MG ORAL TABLET 006478 METRONIDAZOLE Inactive TYLENOL PM EXTRA STRENGTH 500-25 MG ORAL TABLET PRN 12/31 TYLENOL PM EXTRA STRENGTH 500-25 MG ORAL TABLET 2754079 DIPHEN HYDRAMINE-APAP (SLEEP) Inactive SKLICE 0.5 % EXTERNAL LOTION Apply 4oz to dry hair and rinse of after 10 minutes SKLICE 0.5 % EXTERNAL LOTION IVERMEC TIN Inactive FLAGYL 250 MG ORAL TABLET One tablet three times a day FLAGYL 250 MG ORAL TABLET 307286 METRONIDAZOLE Inactive AUGMENTIN 875-125 MG ORAL TABLET 1 po BID x 10 days 20 09/06/11 AUGMENTIN 875-125 MG ORAL TABLET 515384 AMOXICILLIN-POT CLAVULANATE Inactive Immunizations Vaccine Administration Date [...] 11 .0-15.0 platelet count 226 THOUSAND/UL 10*3/mm3 532-710 6969/05/11 mean platelet volume 10.3 fL 7.5-12.5 Lab [...] SCREEN, RBCW/REFL I , Drug Abuse Pnl 10-50/95939 - Blood bank antibody screen, serum NO ANTIBODIES DETECTED Lab Report: CBC, [id number] Gluc cari-1spec - Hematology leukocyte count, blood [...] 201 10^3/MM^3 10*3/mm3 142-424 Lab Report: Chlamydia/GC APTIMA/39733, H EPATITIS B S AG W/, HIV-1/2 Agn/ ... - Chemistry hepatitis B surface antigen NON-REACTIVE NON-RE ACTIVE rapid plasma reagin antibody titer NON-REACTIVE NON-REACTIVE Lab Report: Chlamydia/GC APTIMA/94764, H EPATITIS B S AG W/, HIV-1/2 Agn/ ... - Lab chlamydia DNA probe NOT DETECTED NOT DETECTED Lab Report: Chlamydia/GC APTIMA/[id number], H EPATITIS B S AG W/, HIV-1/2 [...] N Encounters Code Encounter Date Provider Facility CPT-44975 Level 4 Est. Patient 15:39:57 CDT Nayeli herrera [facility] CPT-18773 Level 3 Est. Patient 17:26:51 CDT Rosalina berg [facility] CPT-34249 Level 3 Est. Patient 17:31:05 HIDE CLEANER Cintia sommer [facility] Procedures Code Procedure Name Date Entry Date Standard Desc ription CPT-62954 Visit 13:02:58 HIDE CLEANER CPT-38115 Visit 12:11:18 HIDE CLEANER CPT-36419 Visit 10:38:39 CDT CPT-91370 Visit 08:28:55 CDT CPT-61696 Addl Vx - Ix admin via ID IM or jet injects without counseling by physician 18:18:11 CDT CPT-04629 Boostrix Intramuscular Suspension 5-2.5-18.5 201 04/01/05 18:18:11 CDT CPT-42221 First Vx - Ix admin via ID I M or jet injects without counseling by physician 18:18:11 CDT CPT-11666 Flulaval Intramuscular Injectable 18:18:11 CDT CPT-84067 Fluzone Thim Free 36mo and older 11:16:54 C DT CPT-00593 Tdap 7yrs or > 11:16:53 CDT CPT-21315 Visit 11:16:53 CDT CPT-95280 Visit 11:14:16 CDT CPT-99008 Visit 10:54:00 CDT CPT-51221 Visit 16:24:31 CDT CPT-57902 Sono OB comp > 14 weeks - XRAY USE ONLY 12:01:14 CDT CPT-10265 Visit 15:58:08 CDT CPT-73819 Visit 12:16:56 CDT CPT-10153N Sono OB comp <14 weeks (Pat Only) - X RAY USE ONLY 12:09:02 CDT CPT-87832 Spec Collection and Handling Fee 10:11:50 C DT CPT-19701 Visit 10:11:49 CDT CPT-J1050 Depo Provera 150 mg (Medroxyprogesterone) 08/30 16:06:30 HIDE CLEANER CPT-82625 Abx/Therapy Injection 16:06:30 HIDE CLEANER CPT-J1050 Depo Provera 150 mg (Medroxyprogesterone) 08/30 15:39:17 HIDE CLEANER CPT-39271 Visit 15:01:38 CDT CPT-72601 Sono OB comp > 14 weeks 16:05:04 CDT 03/18 CPT-48334 Spec Collection and Handling Fee 10:45:40 C DT CPT-73688 Visit 10:45:40 CDT
--- OUTSIDE RECORDS SUMMARY | 2020-01-04 23:50 | XMS REPORT | Clinical Summary ---
Author Author Admin, Giuliana Flores Organization [facility] Address Unknown Phone Unavailable Allergies, Adverse [...] use disorder NEED FOR PROPHYLACTIC VACCINATION WITH DEMCBQZ-AIQZI-Z UBELLA (MMR) VACCINE V06.4 Resolved Cintia Pagan APRN Need for prophylactic vaccination with ebjkcix-hzxyx-cnwxeje [MMR] vaccine Contraceptive management V25.9 Resolved Taiwo [...] gestation of V28.9 Inactive 2017 Nayeli Duke ROOFER GYPSUM Encounter for unspecified scre ening of mother Abnormal biochemical finding on screening 796.5 20 09/03/10 Active Estela Clifton STEEL MELTER Abnormal finding on antenata l screening Sinusitis, acute frontal 461.1 Active Rosalina berg ROOFER GYPSUM Acute frontal sinusitis GDM, diet controlled 648.80 Active Nayeli Duke ROOFER GYPSUM Abnormal glucose tolerance complicating , childbirth, or the puerperium, unspecified as to episode of care or not applicable 30 weeks gestation of V28.9 Inactive 2017 Nayeli Duke ROOFER GYPSUM Encounter for unspecified scre ening of mother [...] care, delayed ICD-V23.7 Inactive Kristin taylor Latasha ROOFER GYPSUM NEED FOR PROPHYLACTIC VACCINATION WITH RKFSMRS-KIMOG-W UBELLA (MMR) VACCINE ICD-V06.4 Inactive Cintia Latasha ROOFER GYPSUM Contraceptive management ICD-V25.9 Inactive Dionne Stewart MD follow-up, routine ICD-V24.2 Inacti ve Dionne Stewart MD Vaginal discharge ICD-623.5 Inactive Dionne spencer MD 29 weeks gestation of ICD-V28.9 Inac tive Nayeli Duke ROOFER GYPSUM Medication List Medication Instructions Start Date Stop Date Generic Name NDC Status Provider Patient Instruction ACYCLOVIR 400 MG ORAL TABLET One tab PO BID until delivery 06/23 ACYCLOVIR 57290403515 Active Dionne Stewart MD Active SKLICE 0.5 % EXTERNAL LOTION Apply 4oz to dry hair and rinse of after 10 minutes IVERMECTIN 40894194438 No Longer Active Megan lowe Active TRUE METRIX BLOOD GLUCOSE TEST IN VITRO STRIP Check bl ood sugars four times a day as directed for gestational DM; O24.420 GLUC OSE BLOOD 47478638950 Active Nayeli Duke APRN Active TRUE METRIX GO GLUCOSE METER W/DEVICE KIT Check blood sugars as directed BLOOD GLUCOSE MONITORING SUPPL 86833890162 Active Nayeli Duke APRN Active LANCETS Test blood sugars as directed for gestational DM O24. 420 LANCETS 37999484812 Active Nayeli Duke APRN Activ e AUGMENTIN 875-125 MG ORAL TABLET 1 po BID x 10 days 20 09/06/11 AMOXICILLIN-POT CLAVULANATE 54639905302 No Longer Active Rosalina Bland ROOFER GYPSUM Active FERROUS SULFATE 325 (65 FE) MG ORAL TABLET 1 tablet daily 5 FERROUS SULFATE 10261335701 Active Estela Clifton LPN Active LORATADINE 10 MG ORAL TABLET 1 tablet by mouth daily LORATADINE 93945596133 Active Dionne Stewart MD Active TYLENOL PM EXTRA STRENGTH 500-25 MG ORAL TABLET PRN 12/31 DIPHENHYDRAMINE-APAP (SLEEP) 60763875129 No Longer Active Dionne Stewart MD Active CONCEPT DHA 53.5-38-1 MG ORAL CAPSULE one tab PO daily UNTHHB-KWJGU-BXHP-FA-OMEGA 3 33036617303 Active Dionne Stewart MD Active FLAGYL 500 MG ORAL TABLET 1 tablet PO BID for 7 days 2 METRONIDAZOLE 47593011576 No Longer Active Dionne Stewart MD Active EQL FORMULA 28-0.8 MG ORAL TABLET 1 tablet daily 1 VIT-FE FUMARATE-FA 22853628155 No Longer Active Dionne Stewart MD A ctive CONCEPT DHA 53.5-38-1 MG ORAL CAPSULE one tab PO daily PWVKXY-KPTLS-AYGN-FA-OMEGA 3 52713792269 No Longer Active Dionne Stewart MD Active CYCLOBENZAPRINE HCL 10 MG ORAL TABLET 1 tablet by mout h three times daily as needed for muscle spasm/pain CYCLOBENZAPRINE HCL 04336996613 No Longer Active Dionne Stewart MD Active TRI-SPRINTEC 0.18/0.215/0.25 MG-35 MCG ORAL TABLET 1 po qd a s directed NORGESTIM-ETH ESTRAD TRIPHASIC 87796340485 N o Longer Active Dionne Stewart MD Active FLAGYL 250 MG ORAL TABLET One tablet three times a day METRONIDAZOLE 54393607010 No Longer Active Cintia Pagan ROOFER GYPSUM Active [facility] 28-0.8 MG ORAL TABLET 04/10 VIT-FE FUMARATE-FA 27096912117 No Longer Active Dionne Stewart MD Active [facility] 28-0.8 MG ORAL TABLET 04/10 [facility] 28-0.8 MG ORAL TABLET VIT-FE FUMARATE-FA Inactive TRI-SPRINTEC 0.18/0.215/0.25 MG-35 MCG ORAL TABLET 1 po qd a s directed TRI-SPRINTEC 0.18/0.215/0.25 MG-35 MCG ORAL TABL ET 392388 NORGESTIM-ETH ESTRAD TRIPHASIC Inactive CYCLOBENZAPRINE HCL 10 MG ORAL TABLET 1 tablet by mout h three times daily as needed for muscle spasm/pain CYCLOBENZAP RINE HCL 10 MG ORAL TABLET 354263 CYCLOBENZAPRINE HCL Inactive CONCEPT DHA 53.5-38-1 MG ORAL CAPSULE one tab PO daily CONCEPT DHA 53.5-38-1 MG ORAL CAPSULE DBMHZO-FGWNY-IWHG-FA-O BILLIE 3 Inactive FLAGYL 500 MG ORAL TABLET 1 tablet PO BID for 7 days 2 FLAGYL 500 MG ORAL TABLET 565571 METRONIDAZOLE Inactive TYLENOL PM EXTRA STRENGTH 500-25 MG ORAL TABLET PRN 12/31 TYLENOL PM EXTRA STRENGTH 500-25 MG ORAL TABLET 7106141 DIPHEN HYDRAMINE-APAP (SLEEP) Inactive SKLICE 0.5 % EXTERNAL LOTION Apply 4oz to dry hair and rinse of after 10 minutes SKLICE 0.5 % EXTERNAL LOTION IVERMEC TIN Inactive FLAGYL 250 MG ORAL TABLET One tablet three times a day FLAGYL 250 MG ORAL TABLET 714179 METRONIDAZOLE Inactive AUGMENTIN 875-125 MG ORAL TABLET 1 po BID x 10 days 20 09/06/11 AUGMENTIN 875-125 MG ORAL TABLET 609028 AMOXICILLIN-POT CLAVULANATE Inactive Immunizations Vaccine Administration Date [...] 11 .0-15.0 platelet count 226 THOUSAND/UL 10*3/mm3 985-851 2825/05/11 mean platelet volume 10.3 fL 7.5-12.5 Lab [...] SCREEN, RBCW/REFL I , Drug Abuse Pnl 10-50/55968 - Blood bank antibody screen, serum NO ANTIBODIES DETECTED Lab Report: CBC, [id number] Gluc cari-1spec - Hematology leukocyte count, blood [...] 201 10^3/MM^3 10*3/mm3 142-424 Lab Report: Chlamydia/GC APTIMA/47186, H EPATITIS B S AG W/, HIV-1/2 Agn/ ... - Chemistry hepatitis B surface antigen NON-REACTIVE NON-RE ACTIVE rapid plasma reagin antibody titer NON-REACTIVE NON-REACTIVE Lab Report: Chlamydia/GC APTIMA/25077, H EPATITIS B S AG W/, HIV-1/2 Agn/ ... - Lab chlamydia DNA probe NOT DETECTED NOT DETECTED Lab Report: Chlamydia/GC APTIMA/45882, H EPATITIS B S AG W/, HIV-1/2 [...] N Encounters Code Encounter Date Provider Facility CPT-28325 Level 4 Est. Patient 15:39:57 CDT Nayeli herrera [facility] CPT-24416 Level 3 Est. Patient 17:26:51 CDT Rosalina berg [facility] CPT-24986 Level 3 Est. Patient 17:31:05 PST MANAGER Cintia sommer [facility] Procedures Code Procedure Name Date Entry Date Standard Desc ription CPT-65916 Visit 13:02:58 PST MANAGER CPT-57045 Visit 12:11:18 PST MANAGER CPT-12973 Visit 10:38:39 CDT CPT-79346 Visit 08:28:55 CDT CPT-20784 Addl Vx - Ix admin via ID IM or jet injects without counseling by physician 18:18:11 CDT CPT-70083 Boostrix Intramuscular Suspension 5-2.5-18.5 201 04/01/05 18:18:11 CDT CPT-48779 First Vx - Ix admin via ID I M or jet injects without counseling by physician 18:18:11 CDT CPT-42781 Flulaval Intramuscular Injectable 18:18:11 CDT CPT-71040 Fluzone Thim Free 36mo and older 11:16:54 C DT CPT-03354 Tdap 7yrs or > 11:16:53 CDT CPT-90817 Visit 11:16:53 CDT CPT-09246 Visit 11:14:16 CDT CPT-60282 Visit 10:54:00 CDT CPT-94662 Visit 16:24:31 CDT CPT-49649 Sono OB comp > 14 weeks - XRAY USE ONLY 12:01:14 CDT CPT-88741 Visit 15:58:08 CDT CPT-61344 Visit 12:16:56 CDT CPT-84517L Sono OB comp <14 weeks (Pat Only) - X RAY USE ONLY 12:09:02 CDT CPT-48590 Spec Collection and Handling Fee 10:11:50 C DT CPT-31768 Visit 10:11:49 CDT CPT-J1050 Depo Provera 150 mg (Medroxyprogesterone) 08/30 16:06:30 PST MANAGER CPT-82114 Abx/Therapy Injection 16:06:30 PST MANAGER CPT-J1050 Depo Provera 150 mg (Medroxyprogesterone) 08/30 15:39:17 PST MANAGER CPT-40153 Visit 15:01:38 CDT CPT-12052 Sono OB comp > 14 weeks 16:05:04 CDT 03/18 CPT-66575 Spec Collection and Handling Fee 10:45:40 C DT CPT-50243 Visit 10:45:40 CDT
--- OUTSIDE RECORDS SUMMARY | 2020-01-04 23:51 | XMS REPORT | Clinical Summary ---
Author Author Admin, Giuliana Flores Organization [facility] Address Unknown Phone Unavailable Allergies, Adverse Reactions, Alerts Allergy Name Reaction Description Start Date Severity Status Pr ovider No Known Allergies Billie Conditions or Problems Problem Name Problem Code Onset Date Status Entry Date Provider Comment Standard Description Annotate Supervision of other normal V22.1 Resolved Cintia aPgan APRN Supervision of other normal Supervision of [...] use disorder NEED FOR PROPHYLACTIC VACCINATION WITH FGJNDVI-TFWVM-U UBELLA (MMR) VACCINE V06.4 Resolved Cintia Pagan APRN Need for prophylactic vaccination with flhurwd-kflmj-xanirgg [MMR] vaccine Contraceptive management V25.9 Resolved Taiwo [...] gestation of V28.9 Inactive 2017 Nayeli Duke DENITRATOR OPERATOR Encounter for unspecified scre ening of mother Abnormal biochemical finding on screening 796.5 20 09/03/10 Active Estela Clifton DAILY SALES AUDIT CLERK Abnormal finding on antenata l screening Sinusitis, acute frontal 461.1 Active Rosalina Se berg DENITRATOR OPERATOR Acute frontal sinusitis GDM, diet controlled 648.80 Active Nayeli Duke DENITRATOR OPERATOR Abnormal glucose tolerance complicating , childbirth, or the puerperium, unspecified as to episode of care or not applicable 30 weeks gestation of V28.9 Inactive 2017 Nayeli Duke DENITRATOR OPERATOR Encounter for unspecified scre ening of [...] care, delayed ICD-V23.7 Inactive Kristin taylor Latasha DENITRATOR OPERATOR NEED FOR PROPHYLACTIC VACCINATION WITH FREHPFK-UOAYH-N UBELLA (MMR) VACCINE ICD-V06.4 Inactive Cintia Latasha DENITRATOR OPERATOR Contraceptive management ICD-V25.9 Inactive Dionne Stewart MD follow-up, routine ICD-V24.2 Inacti ve Dionne Stewart MD Vaginal discharge ICD-623.5 Inactive Dionne spencer MD 29 weeks gestation of ICD-V28.9 Inac tive Nayeli Duke APRN Medication List Medication Instructions Start Date Stop Date Generic Name NDC Status Provider Patient Instruction ACYCLOVIR 400 MG ORAL TABLET One tab PO BID until delivery 06/23 ACYCLOVIR 18410198790 Active Dionne Stewart MD Active SKLICE 0.5 % EXTERNAL LOTION Apply 4oz to dry hair and rinse of after 10 minutes IVERMECTIN 93592439005 No Longer Active Megan lowe Active TRUE METRIX BLOOD GLUCOSE TEST IN VITRO STRIP Check bl ood sugars four times a day as directed for gestational DM; O24.420 GLUC OSE BLOOD 13162034310 Active Nayeli Duke APRN Active TRUE METRIX GO GLUCOSE METER W/DEVICE KIT Check blood sugars as directed BLOOD GLUCOSE MONITORING SUPPL 01612560104 Active Nayeli Duke APRN Active LANCETS Test blood sugars as directed for gestational DM O24. 420 LANCETS 10033800049 Active Nayeli Duke DENITRATOR OPERATOR Activ e AUGMENTIN 875-125 MG ORAL TABLET 1 po BID x 10 days 09/06/11 AMOXICILLIN-POT CLAVULANATE 92561230095 No Longer Active Rosalina Bland DENITRATOR OPERATOR Active FERROUS SULFATE 325 (65 FE) MG ORAL TABLET 1 tablet daily 5 FERROUS SULFATE 46962851667 Active Estela Clifton DAILY SALES AUDIT CLERK Active LORATADINE 10 MG ORAL TABLET 1 tablet by mouth daily LORATADINE 03454725063 Active Dionne Stewart MD Active TYLENOL PM EXTRA STRENGTH 500-25 MG ORAL TABLET PRN 12/31 DIPHENHYDRAMINE-APAP (SLEEP) 63264723257 No Longer Active Dionne Stewart MD Active CONCEPT DHA 53.5-38-1 MG ORAL CAPSULE one tab PO daily JWMOHI-MYMIL-KDPF-FA-OMEGA 3 08979959797 Active Dionne Stewart MD Active FLAGYL 500 MG ORAL TABLET 1 tablet PO BID for 7 days 2 METRONIDAZOLE 71964843583 No Longer Active Dionne Stewart MD Active EQL FORMULA 28-0.8 MG ORAL TABLET 1 tablet daily 1 VIT-FE FUMARATE-FA 42519911866 No Longer Active Dionne Stewart MD A ctive CONCEPT DHA 53.5-38-1 MG ORAL CAPSULE one tab PO daily OBRXHY-VIKOS-GWPH-FA-OMEGA 3 31961377640 No Longer Active Dionne Stewart MD Active CYCLOBENZAPRINE HCL 10 MG ORAL TABLET 1 tablet by mout h three times daily as needed for muscle spasm/pain CYCLOBENZAPRINE HCL 67035895122 No Longer Active Dionne Stewart MD Active TRI-SPRINTEC 0.18/0.215/0.25 MG-35 MCG ORAL TABLET 1 po qd a s directed NORGESTIM-ETH ESTRAD TRIPHASIC 70591024403 N o Longer Active Dionne Setwart MD Active FLAGYL 250 MG ORAL TABLET One tablet three times a day METRONIDAZOLE 11082169019 No Longer Active Cintia Pagan APRN Active [facility] 28-0.8 MG ORAL TABLET 04/10 VIT-FE FUMARATE-FA 73022213229 No Longer Active Dionne Stewart MD Active [facility] 28-0.8 MG ORAL TABLET 04/10 [facility] 28-0.8 MG ORAL TABLET VIT-FE FUMARATE-FA Inactive TRI-SPRINTEC 0.18/0.215/0.25 MG-35 MCG ORAL TABLET 1 po qd a s directed TRI-SPRINTEC 0.18/0.215/0.25 MG-35 MCG ORAL TABL ET 139333 NORGESTIM-ETH ESTRAD TRIPHASIC Inactive CYCLOBENZAPRINE HCL 10 MG ORAL TABLET 1 tablet by mout h three times daily as needed for muscle spasm/pain CYCLOBENZAP RINE HCL 10 MG ORAL TABLET 853899 CYCLOBENZAPRINE HCL Inactive CONCEPT DHA 53.5-38-1 MG ORAL CAPSULE one tab PO daily CONCEPT DHA 53.5-38-1 MG ORAL CAPSULE MZRSVA-HKLKP-SYZS-FA-O BILLIE 3 Inactive FLAGYL 500 MG ORAL TABLET 1 tablet PO BID for 7 days 2 FLAGYL 500 MG ORAL TABLET 747288 METRONIDAZOLE Inactive TYLENOL PM EXTRA STRENGTH 500-25 MG ORAL TABLET PRN 12/31 TYLENOL PM EXTRA STRENGTH 500-25 MG ORAL TABLET 6235967 DIPHEN HYDRAMINE-APAP (SLEEP) Inactive SKLICE 0.5 % EXTERNAL LOTION Apply 4oz to dry hair and rinse of after 10 minutes SKLICE 0.5 % EXTERNAL LOTION IVERMEC TIN Inactive FLAGYL 250 MG ORAL TABLET One tablet three times a day FLAGYL 250 MG ORAL TABLET 569106 METRONIDAZOLE Inactive AUGMENTIN 875-125 MG ORAL TABLET 1 po BID x 10 days 20 09/06/11 AUGMENTIN 875-125 MG ORAL TABLET 875488 AMOXICILLIN-POT CLAVULANATE Inactive Immunizations Vaccine Administration Date [...] 11 .0-15.0 platelet count 226 THOUSAND/UL 10*3/mm3 115-533 5642/05/11 mean platelet volume 10.3 fL 7.5-12.5 Lab [...] SCREEN, RBCW/REFL I , Drug Abuse Pnl 10-50/42963 - Blood bank antibody screen, serum NO ANTIBODIES DETECTED Lab Report: CBC, [id number] Gluc cari-1spec - Hematology leukocyte count, blood [...] count 201 10^3/MM^3 10*3/mm3 142-424 Lab Report: OBGTT3 - Chemistry blood glucose [...] N Encounters Code Encounter Date Provider Facility CPT-75322 Level 4 Est. Patient 15:39:57 CDT Nayeli herrera [facility] CPT-50198 Level 3 Est. Patient 17:26:51 CDT Rosalina berg [facility] [place] CPT-25685 Level 3 Est. Patient 17:31:05 SUPERVISOR PLASTERING Cintia sommer [facility] [place] Procedures Code Procedure Name Date Entry Date Standard Desc ription CPT-79131 Visit 12:11:18 SUPERVISOR PLASTERING CPT-98067 Visit 10:38:39 CDT CPT-06782 Visit 08:28:55 CDT CPT-20070 Addl Vx - Ix admin via ID IM or jet injects without counseling by physician 18:18:11 CDT CPT-02721 Boostrix Intramuscular Suspension 5-2.5-18.5 201 04/01/05 18:18:11 CDT CPT-18638 First Vx - Ix admin via ID I M or jet injects without counseling by physician 18:18:11 CDT CPT-44480 Flulaval Intramuscular Injectable 18:18:11 CDT CPT-73197 Fluzone Thim Free 36mo and older 11:16:54 C DT CPT-13631 Tdap 7yrs or > 11:16:53 CDT CPT-17029 Visit 11:16:53 CDT CPT-38304 Visit 11:14:16 CDT CPT-56842 Visit 10:54:00 CDT CPT-52903 Visit 16:24:31 CDT CPT-99807 Sono OB comp > 14 weeks - XRAY USE ONLY 12:01:14 CDT CPT-54529 Visit 15:58:08 CDT CPT-32395 Visit 12:16:56 CDT CPT-53818M Sono OB comp <14 weeks ([place] Only) - X RAY USE ONLY 12:09:02 CDT CPT-10716 Spec Collection and Handling Fee 10:11:50 C DT CPT-73584 Visit 10:11:49 CDT CPT-J1050 Depo Provera 150 mg (Medroxyprogesterone) 08/30 16:06:30 SUPERVISOR PLASTERING CPT-55542 Abx/Therapy Injection 16:06:30 SUPERVISOR PLASTERING CPT-J1050 Depo Provera 150 mg (Medroxyprogesterone) 08/30 15:39:17 SUPERVISOR PLASTERING CPT-29016 Visit 15:01:38 CDT CPT-91927 Sono OB comp > 14 weeks 16:05:04 CDT 03/18 CPT-01870 Spec Collection and Handling Fee 10:45:40 C DT CPT-34973 Visit 10:45:40 CDT
--- OUTSIDE RECORDS SUMMARY | 2020-01-04 23:51 | XMS REPORT | Clinical Summary ---
Author Author Admin, Giuliana Flores Organization [facility] Address Unknown Phone Unavailable Allergies, [...] use disorder NEED FOR PROPHYLACTIC VACCINATION WITH YGTPVCG-ZLDYP-R UBELLA (MMR) VACCINE V06.4 Resolved Cintia Pagan APRN Need for prophylactic vaccination with fphmwks-oceht-mhgdfpw [MMR] vaccine Contraceptive management V25.9 Resolved Taiwo [...] gestation of V28.9 Inactive 2017 Nayeli Duke BRIM POUNCER MACHINE OPERATOR Encounter for unspecified scre ening of mother Abnormal biochemical finding on screening 796.5 20 09/03/10 Active Estela Clifton FAMILY PSYCHOLOGIST Abnormal finding on antenata l screening Sinusitis, acute frontal 461.1 Active Rosalina berg BRIM POUNCER MACHINE OPERATOR Acute frontal sinusitis GDM, diet controlled 648.80 Active Nayeli Duke BRIM POUNCER MACHINE OPERATOR Abnormal glucose tolerance complicating , childbirth, or the puerperium, unspecified as to episode of care or not applicable 30 weeks gestation of V28.9 Inactive 2017 Nayeli Duke BRIM POUNCER MACHINE OPERATOR Encounter for unspecified scre ening [...] care, delayed ICD-V23.7 Inactive Kristin taylor Latasha BRIM POUNCER MACHINE OPERATOR NEED FOR PROPHYLACTIC VACCINATION WITH QAOBHZV-UQVPS-T UBELLA (MMR) VACCINE ICD-V06.4 Inactive Cintia Latasha BRIM POUNCER MACHINE OPERATOR Contraceptive management ICD-V25.9 Inactive Dionne Stewart MD follow-up, routine ICD-V24.2 Inacti ve Dionne Stewart MD Vaginal discharge ICD-623.5 Inactive Dionne spencer MD 29 weeks gestation of ICD-V28.9 Inac tive Nayeli Duke APRN Medication List Medication Instructions Start Date Stop Date Generic Name NDC Status Provider Patient Instruction ACYCLOVIR 400 MG ORAL TABLET One tab PO BID until delivery 06/23 ACYCLOVIR 21316652835 Active Dionne Stewart MD Active SKLICE 0.5 % EXTERNAL LOTION Apply 4oz to dry hair and rinse of after 10 minutes IVERMECTIN 70037176122 No Longer Active Megan lowe Active TRUE METRIX BLOOD GLUCOSE TEST IN VITRO STRIP Check bl ood sugars four times a day as directed for gestational DM; O24.420 GLUC OSE BLOOD 94776058480 Active Nayeli Duke APRN Active TRUE METRIX GO GLUCOSE METER W/DEVICE KIT Check blood sugars as directed BLOOD GLUCOSE MONITORING SUPPL 84026416256 Active Nayeli Duke APRN Active LANCETS Test blood sugars as directed for gestational DM O24. 420 LANCETS 03995891825 Active Nayeli Trego BRIM POUNCER MACHINE OPERATOR Activ e AUGMENTIN 875-125 MG ORAL TABLET 1 po BID x 10 days 09/06/11 AMOXICILLIN-POT CLAVULANATE 23101945959 No Longer Active Rosalina Edwina BRIM POUNCER MACHINE OPERATOR Active FERROUS SULFATE 325 (65 FE) MG ORAL TABLET 1 tablet daily 5 FERROUS SULFATE 22376441259 Active Estela Clifton FAMILY PSYCHOLOGIST Active LORATADINE 10 MG ORAL TABLET 1 tablet by mouth daily LORATADINE 59946233015 Active Dionne Stewart MD Active TYLENOL PM EXTRA STRENGTH 500-25 MG ORAL TABLET PRN 12/31 DIPHENHYDRAMINE-APAP (SLEEP) 30388058908 No Longer Active Dionne Stewart MD Active CONCEPT DHA 53.5-38-1 MG ORAL CAPSULE one tab PO daily TLKIAK-UOIGK-JLVN-FA-OMEGA 3 31750923508 Active Dionne Stewart MD Active FLAGYL 500 MG ORAL TABLET 1 tablet PO BID for 7 days 2 METRONIDAZOLE 86188173750 No Longer Active Dionne Stewart MD Active EQL FORMULA 28-0.8 MG ORAL TABLET 1 tablet daily 1 VIT-FE FUMARATE-FA 38619155466 No Longer Active Dionne Stewart MD A ctive CONCEPT DHA 53.5-38-1 MG ORAL CAPSULE one tab PO daily VKZJZX-YNHXA-NQFA-FA-OMEGA 3 69900085932 No Longer Active Dionne Stewart MD Active CYCLOBENZAPRINE HCL 10 MG ORAL TABLET 1 tablet by mout h three times daily as needed for muscle spasm/pain CYCLOBENZAPRINE HCL 88942086998 No Longer Active Dionne Stewart MD Active TRI-SPRINTEC 0.18/0.215/0.25 MG-35 MCG ORAL TABLET 1 po qd a s directed NORGESTIM-ETH ESTRAD TRIPHASIC 83170643258 N o Longer Active Dionne Stewart MD Active FLAGYL 250 MG ORAL TABLET One tablet three times a day METRONIDAZOLE 38225730541 No Longer Active Cintia Alkemal YONATHAN Active [facility] 28-0.8 MG ORAL TABLET 04/10 VIT-FE FUMARATE-FA 67716430390 No Longer Active Dionne Stewart MD Active [facility] 28-0.8 MG ORAL TABLET 04/10 [facility] 28-0.8 MG ORAL TABLET VIT-FE FUMARATE-FA Inactive TRI-SPRINTEC 0.18/0.215/0.25 MG-35 MCG ORAL TABLET 1 po qd a s directed TRI-SPRINTEC 0.18/0.215/0.25 MG-35 MCG ORAL TABL ET 652122 NORGESTIM-ETH ESTRAD TRIPHASIC Inactive CYCLOBENZAPRINE HCL 10 MG ORAL TABLET 1 tablet by mout h three times daily as needed for muscle spasm/pain CYCLOBENZAP RINE HCL 10 MG ORAL TABLET 266747 CYCLOBENZAPRINE HCL Inactive CONCEPT DHA 53.5-38-1 MG ORAL CAPSULE one tab PO daily CONCEPT DHA 53.5-38-1 MG ORAL CAPSULE OUUHDE-JCSTN-MZZY-FA-O BILLIE 3 Inactive FLAGYL 500 MG ORAL TABLET 1 tablet PO BID for 7 days 2 FLAGYL 500 MG ORAL TABLET 836606 METRONIDAZOLE Inactive TYLENOL PM EXTRA STRENGTH 500-25 MG ORAL TABLET PRN 12/31 TYLENOL PM EXTRA STRENGTH 500-25 MG ORAL TABLET 9836878 DIPHEN HYDRAMINE-APAP (SLEEP) Inactive SKLICE 0.5 % EXTERNAL LOTION Apply 4oz to dry hair and rinse of after 10 minutes SKLICE 0.5 % EXTERNAL LOTION IVERMEC TIN Inactive FLAGYL 250 MG ORAL TABLET One tablet three times a day FLAGYL 250 MG ORAL TABLET 563121 METRONIDAZOLE Inactive AUGMENTIN 875-125 MG ORAL TABLET 1 po BID x 10 days 20 09/06/11 AUGMENTIN 875-125 MG ORAL TABLET 451792 AMOXICILLIN-POT CLAVULANATE Inactive Immunizations Vaccine Administration Date [...] 11 .0-15.0 platelet count 226 THOUSAND/UL 10*3/mm3 076-177 1006/05/11 mean platelet volume 10.3 fL 7.5-12.5 Lab [...] SCREEN, RBCW/REFL I , Drug Abuse Pnl 10-50/44722 - Blood bank antibody screen, serum NO ANTIBODIES DETECTED Lab Report: CBC, [id number] Gluc cari-1spec - Hematology leukocyte count, blood [...] N Encounters Code Encounter Date Provider Facility CPT-05757 Level 4 Est. Patient 15:39:57 CDT Nayeli herrera [facility] CPT-22659 Level 3 Est. Patient 17:26:51 CDT Rosalina berg [facility] CPT-63799 Level 3 Est. Patient 17:31:05 NON DESTRUCTIVE TESTING SCIENTIST Cintia sommer [facility] Procedures Code Procedure Name Date Entry Date Standard Desc ription CPT-85758 Visit 12:11:18 NON DESTRUCTIVE TESTING SCIENTIST CPT-75506 Visit 10:38:39 CDT CPT-18507 Visit 08:28:55 CDT CPT-08352 Addl Vx - Ix admin via ID IM or jet injects without counseling by physician 18:18:11 CDT CPT-10455 Boostrix Intramuscular Suspension 5-2.5-18.5 201 04/01/05 18:18:11 CDT CPT-92817 First Vx - Ix admin via ID I M or jet injects without counseling by physician 18:18:11 CDT CPT-86629 Flulaval Intramuscular Injectable 18:18:11 CDT CPT-66014 Fluzone Thim Free 36mo and older 11:16:54 C DT CPT-29380 Tdap 7yrs or > 11:16:53 CDT CPT-14075 Visit 11:16:53 CDT CPT-68687 Visit 11:14:16 CDT CPT-25419 Visit 10:54:00 CDT CPT-22042 Visit 16:24:31 CDT CPT-19980 Sono OB comp > 14 weeks - XRAY USE ONLY 12:01:14 CDT CPT-39783 Visit 15:58:08 CDT CPT-57742 Visit 12:16:56 CDT CPT-46408R Sono OB comp <14 weeks (Pat Only) - X RAY USE ONLY 12:09:02 CDT CPT-06756 Spec Collection and Handling Fee 10:11:50 C DT CPT-09180 Visit 10:11:49 CDT CPT-J1050 Depo Provera 150 mg (Medroxyprogesterone) 08/30 16:06:30 NON DESTRUCTIVE TESTING SCIENTIST CPT-94250 Abx/Therapy Injection 16:06:30 NON DESTRUCTIVE TESTING SCIENTIST CPT-J1050 Depo Provera 150 mg (Medroxyprogesterone) 08/30 15:39:17 NON DESTRUCTIVE TESTING SCIENTIST CPT-95538 Visit 15:01:38 CDT CPT-24890 Sono OB comp > 14 weeks 16:05:04 CDT 03/18 CPT-82026 Spec Collection and Handling Fee 10:45:40 C DT CPT-91911 Visit 10:45:40 CDT
--- OUTSIDE RECORDS SUMMARY | 2020-01-04 23:51 | XMS REPORT | Clinical Summary ---
Author Author Admin, Giuliana Flores Organization [facility] Address Unknown Phone Unavailable Allergies, [...] use disorder NEED FOR PROPHYLACTIC VACCINATION WITH RFLLHQF-USHXB-T UBELLA (MMR) VACCINE V06.4 Resolved Cintia Pagan APRN Need for prophylactic vaccination with blgwplf-nsdpt-uxoxmsv [MMR] vaccine Contraceptive management V25.9 Resolved Taiwo [...] gestation of V28.9 Inactive 2017 Nayeli Duke DRAFTER APPRENTICE Encounter for unspecified scre ening of mother Abnormal biochemical finding on screening 796.5 20 09/03/10 Active Estela Clifton SIEVE MAKER Abnormal finding on antenata l screening Sinusitis, acute frontal 461.1 Active Rosalina Se berg DRAFTER APPRENTICE Acute frontal sinusitis GDM, diet controlled 648.80 Active Nayeli Duke DRAFTER APPRENTICE Abnormal glucose tolerance complicating , childbirth, or the puerperium, unspecified as to episode of care or not applicable 30 weeks gestation of V28.9 Inactive 2017 Nayeli Duke DRAFTER APPRENTICE Encounter for unspecified scre ening of mother 31 weeks gestation of V28.9 Inactive 2017 Dionne Stewart MD Encounter for unspecified scre ening of mother 33 weeks gestation of V28.9 Active 2017 Dionne Stewart MD Encounter for unspecified scre ening of mother care, delayed ICD-V23.7 Inactive Kristin Pagan DRAFTER APPRENTICE NEED FOR PROPHYLACTIC VACCINATION WITH MIDXILO-QLSLQ-I UBELLA (MMR) VACCINE ICD-V06.4 Inactive Cintia Pagan DRAFTER APPRENTICE Contraceptive management ICD-V25.9 Inactive Dionne Stewart MD follow-up, routine ICD-V24.2 Inacti ve Dionne Stewart MD Vaginal discharge ICD-623.5 Inactive Dionne spencer MD 29 weeks gestation of ICD-V28.9 Inac tive Nayeli Duke APRN Medication List Medication Instructions Start Date Stop Date Generic Name NDC Status Provider Patient Instruction ACYCLOVIR 400 MG ORAL TABLET One tab PO BID until delivery 06/23 ACYCLOVIR 49337006620 Active Dionne Stewart MD Active SKLICE 0.5 % EXTERNAL LOTION Apply 4oz to dry hair and rinse of after 10 minutes IVERMECTIN 36758340346 No Longer Active Megan lowe Active TRUE METRIX BLOOD GLUCOSE TEST IN VITRO STRIP Check bl ood sugars four times a day as directed for gestational DM; O24.420 GLUC OSE BLOOD 42985035954 Active Nayeli Duke APRN Active TRUE METRIX GO GLUCOSE METER W/DEVICE KIT Check blood sugars as directed BLOOD GLUCOSE MONITORING SUPPL 31715474104 Active Nayeli Duke APRN Active LANCETS Test blood sugars as directed for gestational DM O24. 420 LANCETS 42700254860 Active Nayeli Duke APRN Activ e AUGMENTIN 875-125 MG ORAL TABLET 1 po BID x 10 days 20 09/06/11 AMOXICILLIN-POT CLAVULANATE 37386378973 No Longer Active Rosalina Sell DRAFTER APPRENTICE Active FERROUS SULFATE 325 (65 FE) MG ORAL TABLET 1 tablet daily 5 FERROUS SULFATE 04834363978 Active Estela Clifton SIEVE MAKER Active LORATADINE 10 MG ORAL TABLET 1 tablet by mouth daily LORATADINE 16023522062 Active Dionne Stewart MD Active TYLENOL PM EXTRA STRENGTH 500-25 MG ORAL TABLET PRN 12/31 DIPHENHYDRAMINE-APAP (SLEEP) 58063138073 No Longer Active Dionne Stewart MD Active CONCEPT DHA 53.5-38-1 MG ORAL CAPSULE one tab PO daily NRMECW-RFEEF-EYPH-FA-OMEGA 3 03860407316 Active Dionne Stewart MD Active FLAGYL 500 MG ORAL TABLET 1 tablet PO BID for 7 days 2 METRONIDAZOLE 92715630612 No Longer Active Dionne Stewart MD Active EQL FORMULA 28-0.8 MG ORAL TABLET 1 tablet daily 1 VIT-FE FUMARATE-FA 12263611280 No Longer Active Dionne Stewart MD A ctive CONCEPT DHA 53.5-38-1 MG ORAL CAPSULE one tab PO daily FOFRMI-XQXCV-HIRM-FA-OMEGA 3 37745535430 No Longer Active Dionne Stewart MD Active CYCLOBENZAPRINE HCL 10 MG ORAL TABLET 1 tablet by mout h three times daily as needed for muscle spasm/pain CYCLOBENZAPRINE HCL 43970278098 No Longer Active Dionne Stewart MD Active TRI-SPRINTEC 0.18/0.215/0.25 MG-35 MCG ORAL TABLET 1 po qd a s directed NORGESTIM-ETH ESTRAD TRIPHASIC 37711541627 N o Longer Active Dionne Stewart MD Active FLAGYL 250 MG ORAL TABLET One tablet three times a day METRONIDAZOLE 47931328824 No Longer Active Cintia Pagan DRAFTER APPRENTICE Active [facility] 28-0.8 MG ORAL TABLET 04/10 VIT-FE FUMARATE-FA 80592522533 No Longer Active Dionne Stewart MD Active [facility] 28-0.8 MG ORAL TABLET 04/10 [facility] 28-0.8 MG ORAL TABLET VIT-FE FUMARATE-FA Inactive TRI-SPRINTEC 0.18/0.215/0.25 MG-35 MCG ORAL TABLET 1 po qd a s directed TRI-SPRINTEC 0.18/0.215/0.25 MG-35 MCG ORAL TABL ET 631989 NORGESTIM-ETH ESTRAD TRIPHASIC Inactive CYCLOBENZAPRINE HCL 10 MG ORAL TABLET 1 tablet by mout h three times daily as needed for muscle spasm/pain CYCLOBENZAP RINE HCL 10 MG ORAL TABLET 440688 CYCLOBENZAPRINE HCL Inactive CONCEPT DHA 53.5-38-1 MG ORAL CAPSULE one tab PO daily CONCEPT DHA 53.5-38-1 MG ORAL CAPSULE MWQHMY-UMWJA-VSKW-FA-O BILLIE 3 Inactive FLAGYL 500 MG ORAL TABLET 1 tablet PO BID for 7 days 2 FLAGYL 500 MG ORAL TABLET 940685 METRONIDAZOLE Inactive TYLENOL PM EXTRA STRENGTH 500-25 MG ORAL TABLET PRN 12/31 TYLENOL PM EXTRA STRENGTH 500-25 MG ORAL TABLET 3508563 DIPHEN HYDRAMINE-APAP (SLEEP) Inactive SKLICE 0.5 % EXTERNAL LOTION Apply 4oz to dry hair and rinse of after 10 minutes SKLICE 0.5 % EXTERNAL LOTION IVERMEC TIN Inactive FLAGYL 250 MG ORAL TABLET One tablet three times a day FLAGYL 250 MG ORAL TABLET 073116 METRONIDAZOLE Inactive AUGMENTIN 875-125 MG ORAL TABLET 1 po BID x 10 days 09/06/11 AUGMENTIN 875-125 MG ORAL TABLET 269645 AMOXICILLIN-POT CLAVULANATE Inactive Immunizations Vaccine Administration Date Value Standard Koko cription hepatitis B vaccine series yes hepat itis B vaccine, unspecified formulation hepatitis B vaccine series no hepat itis B vaccine, unspecified formulation Vital Signs Date Name Value Unit Range Description blood pressure, diastolic 66 mm[Hg] BP miramontes [...] 11 .0-15.0 platelet count 226 THOUSAND/UL 10*3/mm3 891-011 1472/05/11 mean platelet volume 10.3 fL 7.5-12.5 Lab [...] SCREEN, RBCW/REFL I , Drug Abuse Pnl 27714 - Blood bank antibody screen, serum NO ANTIBODIES DETECTED Lab Report: CBC, [id number] Gluc cari-1spec - Hematology leukocyte count, blood [...] N Encounters Code Encounter Date Provider Facility CPT-40600 Level 4 Est. Patient 15:39:57 CDT Nayeli herrera [facility] CPT-30362 Level 3 Est. Patient 17:26:51 CDT Rosalina berg [facility] CPT-63790 Level 3 Est. Patient 17:31:05 USED CAR SALESPERSON Cintia sommer [facility] Procedures Code Procedure Name Date Entry Date Standard Desc ription CPT-59883 Visit 10:38:39 CDT CPT-71693 Visit 08:28:55 CDT CPT-60724 Addl Vx - Ix admin via ID IM or jet injects without counseling by physician 18:18:11 CDT CPT-88470 Boostrix Intramuscular Suspension 5-2.5-18.5 201 04/01/05 18:18:11 CDT CPT-67750 First Vx - Ix admin via ID I M or jet injects without counseling by physician 18:18:11 CDT CPT-83650 Flulaval Intramuscular Injectable 18:18:11 CDT CPT-78912 Fluzone Thim Free 36mo and older 11:16:54 C DT CPT-50261 Tdap 7yrs or > 11:16:53 CDT CPT-55105 Visit 11:16:53 CDT CPT-52978 Visit 11:14:16 CDT CPT-46416 Visit 10:54:00 CDT CPT-21639 Visit 16:24:31 CDT CPT-90897 Sono OB comp > 14 weeks - XRAY USE ONLY 12:01:14 CDT CPT-03772 Visit 15:58:08 CDT CPT-66216 Visit 12:16:56 CDT CPT-93785F Sono OB comp <14 weeks ([place] Only) - X RAY USE ONLY 12:09:02 CDT CPT-89291 Spec Collection and Handling Fee 10:11:50 C DT CPT-24996 Visit 10:11:49 CDT CPT-J1050 Depo Provera 150 mg (Medroxyprogesterone) 08/30 16:06:30 USED CAR SALESPERSON CPT-39201 Abx/Therapy Injection 16:06:30 USED CAR SALESPERSON CPT-J1050 Depo Provera 150 mg (Medroxyprogesterone) 08/30 15:39:17 USED CAR SALESPERSON CPT-84979 Visit 15:01:38 CDT CPT-48360 Sono OB comp > 14 weeks 16:05:04 CDT 03/18 CPT-22746 Spec Collection and Handling Fee 10:45:40 C DT CPT-91835 Visit 10:45:40 CDT
--- OUTSIDE RECORDS SUMMARY | 2020-01-04 23:51 | XMS REPORT | Clinical Summary ---
Author Author Admin, Giuliana Flores Organization [facility] Address Unknown Phone Unavailable Allergies, Adverse [...] use disorder NEED FOR PROPHYLACTIC VACCINATION WITH TAUGGIO-MBKIS-E UBELLA (MMR) VACCINE V06.4 Resolved Cintia Pagan APRN Need for prophylactic vaccination with tbadcdr-uxcyl-vxzbyre [MMR] vaccine Contraceptive management V25.9 Resolved Taiwo [...] gestation of V28.9 Inactive 2017 Nayeli Duke EXPORT FREIGHT CLERK Encounter for unspecified scre ening of mother Abnormal biochemical finding on screening 796.5 20 09/03/10 Active Estela Clifton DRIVEWAY ATTENDANT Abnormal finding on antenata l screening Sinusitis, acute frontal 461.1 Active Rosalina berg EXPORT FREIGHT CLERK Acute frontal sinusitis GDM, diet controlled 648.80 Active Nayeli Duke EXPORT FREIGHT CLERK Abnormal glucose tolerance complicating , childbirth, or the puerperium, unspecified as to episode of care or not applicable 30 weeks gestation of V28.9 Inactive 2017 Nayeli Duke EXPORT FREIGHT CLERK Encounter for unspecified scre ening of mother 31 weeks gestation of V28.9 Inactive 2017 iDonne Stewart MD Encounter for unspecified scre ening [...] care, delayed ICD-V23.7 Inactive Kristin taylor Latasha EXPORT FREIGHT CLERK NEED FOR PROPHYLACTIC VACCINATION WITH BMXDAFB-YLPCF-D UBELLA (MMR) VACCINE ICD-V06.4 Inactive Cintia Latasha EXPORT FREIGHT CLERK Contraceptive management ICD-V25.9 Inactive Dionne Stewart MD follow-up, routine ICD-V24.2 Inacti ve Dionne Stewart MD Vaginal discharge ICD-623.5 Inactive Dionne spencer MD 29 weeks gestation of ICD-V28.9 Inac tive Nayeli Duke APRN Medication List Medication Instructions Start Date Stop Date Generic Name NDC Status Provider Patient Instruction ACYCLOVIR 400 MG ORAL TABLET One tab PO BID until delivery 06/23 ACYCLOVIR 05240863734 Active Dionne Stewart MD Active SKLICE 0.5 % EXTERNAL LOTION Apply 4oz to dry hair and rinse of after 10 minutes IVERMECTIN 20507940357 No Longer Active Megan lowe Active TRUE METRIX BLOOD GLUCOSE TEST IN VITRO STRIP Check bl ood sugars four times a day as directed for gestational DM; O24.420 GLUC OSE BLOOD 03138198955 Active Nayeli Duke APRN Active TRUE METRIX GO GLUCOSE METER W/DEVICE KIT Check blood sugars as directed BLOOD GLUCOSE MONITORING SUPPL 58234400893 Active Nayeli Duke APRN Active LANCETS Test blood sugars as directed for gestational DM O24. 420 LANCETS 50701148824 Active Nayeli Cabarrus EXPORT FREIGHT CLERK Activ e AUGMENTIN 875-125 MG ORAL TABLET 1 po BID x 10 days 09/06/11 AMOXICILLIN-POT CLAVULANATE 49258082392 No Longer Active Rosalina Edwina EXPORT FREIGHT CLERK Active FERROUS SULFATE 325 (65 FE) MG ORAL TABLET 1 tablet daily 5 FERROUS SULFATE 03676066752 Active Estela Clifton DRIVEWAY ATTENDANT Active LORATADINE 10 MG ORAL TABLET 1 tablet by mouth daily LORATADINE 62590500993 Active Dionne Stewart MD Active TYLENOL PM EXTRA STRENGTH 500-25 MG ORAL TABLET PRN 12/31 DIPHENHYDRAMINE-APAP (SLEEP) 40652874857 No Longer Active Dionne Stewart MD Active CONCEPT DHA 53.5-38-1 MG ORAL CAPSULE one tab PO daily KHNJJZ-LBYFX-JPYU-FA-OMEGA 3 74355177825 Active Dionne Stewart MD Active FLAGYL 500 MG ORAL TABLET 1 tablet PO BID for 7 days 2 METRONIDAZOLE 45831604633 No Longer Active Dionne Stewart MD Active EQL FORMULA 28-0.8 MG ORAL TABLET 1 tablet daily 1 VIT-FE FUMARATE-FA 39355645933 No Longer Active Dionne Stewart MD A ctive CONCEPT DHA 53.5-38-1 MG ORAL CAPSULE one tab PO daily PTGLBW-MHRRH-QNKT-FA-OMEGA 3 42792635401 No Longer Active Dionne Stewart MD Active CYCLOBENZAPRINE HCL 10 MG ORAL TABLET 1 tablet by mout h three times daily as needed for muscle spasm/pain CYCLOBENZAPRINE HCL 98148897896 No Longer Active Dionne Stewart MD Active TRI-SPRINTEC 0.18/0.215/0.25 MG-35 MCG ORAL TABLET 1 po qd a s directed NORGESTIM-ETH ESTRAD TRIPHASIC 42265532128 N o Longer Active Dionne Stewart MD Active FLAGYL 250 MG ORAL TABLET One tablet three times a day METRONIDAZOLE 92237259393 No Longer Active Cintia Alkemal YONATHAN Active [facility] 28-0.8 MG ORAL TABLET 04/10 VIT-FE FUMARATE-FA 26888052925 No Longer Active Dionne Stewart MD Active [facility] 28-0.8 MG ORAL TABLET 04/10 [facility] 28-0.8 MG ORAL TABLET VIT-FE FUMARATE-FA Inactive TRI-SPRINTEC 0.18/0.215/0.25 MG-35 MCG ORAL TABLET 1 po qd a s directed TRI-SPRINTEC 0.18/0.215/0.25 MG-35 MCG ORAL TABL ET 285882 NORGESTIM-ETH ESTRAD TRIPHASIC Inactive CYCLOBENZAPRINE HCL 10 MG ORAL TABLET 1 tablet by mout h three times daily as needed for muscle spasm/pain CYCLOBENZAP RINE HCL 10 MG ORAL TABLET 601501 CYCLOBENZAPRINE HCL Inactive CONCEPT DHA 53.5-38-1 MG ORAL CAPSULE one tab PO daily CONCEPT DHA 53.5-38-1 MG ORAL CAPSULE QMTGHH-WNXTR-IVHZ-FA-O BILLIE 3 Inactive FLAGYL 500 MG ORAL TABLET 1 tablet PO BID for 7 days 2 FLAGYL 500 MG ORAL TABLET 011640 METRONIDAZOLE Inactive TYLENOL PM EXTRA STRENGTH 500-25 MG ORAL TABLET PRN 12/31 TYLENOL PM EXTRA STRENGTH 500-25 MG ORAL TABLET 8296043 DIPHEN HYDRAMINE-APAP (SLEEP) Inactive SKLICE 0.5 % EXTERNAL LOTION Apply 4oz to dry hair and rinse of after 10 minutes SKLICE 0.5 % EXTERNAL LOTION IVERMEC TIN Inactive FLAGYL 250 MG ORAL TABLET One tablet three times a day FLAGYL 250 MG ORAL TABLET 223738 METRONIDAZOLE Inactive AUGMENTIN 875-125 MG ORAL TABLET 1 po BID x 10 days 20 09/06/11 AUGMENTIN 875-125 MG ORAL TABLET 905261 AMOXICILLIN-POT CLAVULANATE Inactive Immunizations Vaccine Administration Date [...] 11 .0-15.0 platelet count 226 THOUSAND/UL 10*3/mm3 682-052 0642/05/11 mean platelet volume 10.3 fL 7.5-12.5 Lab [...] SCREEN, RBCW/REFL I , Drug Abuse Pnl 10-50/62501 - Blood bank antibody screen, serum NO ANTIBODIES DETECTED Lab Report: CBC, [id number] Gluc cari-1spec - Hematology leukocyte count, blood [...] N Encounters Code Encounter Date Provider Facility CPT-65312 Level 4 Est. Patient 15:39:57 CDT Nayeli herrera [facility] CPT-39086 Level 3 Est. Patient 17:26:51 CDT Rosalina berg [facility] CPT-69684 Level 3 Est. Patient 17:31:05 SERVICE INSPECTOR Cintia sommer [facility] Procedures Code Procedure Name Date Entry Date Standard Desc ription CPT-87779 Visit 12:11:18 SERVICE INSPECTOR CPT-03091 Visit 10:38:39 CDT CPT-34689 Visit 08:28:55 CDT CPT-33726 Addl Vx - Ix admin via ID IM or jet injects without counseling by physician 18:18:11 CDT CPT-24631 Boostrix Intramuscular Suspension 5-2.5-18.5 201 04/01/05 18:18:11 CDT CPT-60832 First Vx - Ix admin via ID I M or jet injects without counseling by physician 18:18:11 CDT CPT-37657 Flulaval Intramuscular Injectable 18:18:11 CDT CPT-93354 Fluzone Thim Free 36mo and older 11:16:54 C DT CPT-99013 Tdap 7yrs or > 11:16:53 CDT CPT-40426 Visit 11:16:53 CDT CPT-34756 Visit 11:14:16 CDT CPT-69989 Visit 10:54:00 CDT CPT-64488 Visit 16:24:31 CDT CPT-76413 Sono OB comp > 14 weeks - XRAY USE ONLY 12:01:14 CDT CPT-75141 Visit 15:58:08 CDT CPT-66550 Visit 12:16:56 CDT CPT-08374K Sono OB comp <14 weeks (Pat Only) - X RAY USE ONLY 12:09:02 CDT CPT-06089 Spec Collection and Handling Fee 10:11:50 C DT CPT-07285 Visit 10:11:49 CDT CPT-J1050 Depo Provera 150 mg (Medroxyprogesterone) 08/30 16:06:30 SERVICE INSPECTOR CPT-59762 Abx/Therapy Injection 16:06:30 SERVICE INSPECTOR CPT-J1050 Depo Provera 150 mg (Medroxyprogesterone) 08/30 15:39:17 SERVICE INSPECTOR CPT-52653 Visit 15:01:38 CDT CPT-99140 Sono OB comp > 14 weeks 16:05:04 CDT 03/18 CPT-51721 Spec Collection and Handling Fee 10:45:40 C DT CPT-80129 Visit 10:45:40 CDT
--- OUTSIDE RECORDS SUMMARY | 2020-01-04 23:52 | XMS REPORT | Clinical Summary ---
Author Author Admin, Giuliana Flores Organization [facility] Address Unknown Phone Unavailable Allergies, [...] use disorder NEED FOR PROPHYLACTIC VACCINATION WITH JHTRKCN-TYQSU-H UBELLA (MMR) VACCINE V06.4 Resolved Cintia Pagan APRN Need for prophylactic vaccination with ccxqvqz-pkcnn-yjberyj [MMR] vaccine Contraceptive management V25.9 Resolved Taiwo [...] gestation of V28.9 Inactive 2017 Nayeli Duke QUALITY SYSTEMS SPECIALIST Encounter for unspecified scre ening of mother Abnormal biochemical finding on screening 796.5 20 09/03/10 Active Estela Clifton J[employer]ET Abnormal finding on antenata l screening Sinusitis, acute frontal 461.1 Active Rosalnia berg QUALITY SYSTEMS SPECIALIST Acute frontal sinusitis GDM, diet controlled 648.80 Active Nayeli Duke QUALITY SYSTEMS SPECIALIST Abnormal glucose tolerance complicating , childbirth, or the puerperium, unspecified as to episode of care or not applicable 30 weeks gestation of V28.9 Inactive 2017 Nayeli Duke QUALITY SYSTEMS SPECIALIST Encounter for unspecified scre ening of mother 31 weeks gestation of V28.9 Inactive 2017 Dionne Stewart MD Encounter for unspecified scre ening of mother 33 weeks gestation of V28.9 Active 2017 Dionne Stewart MD Encounter for unspecified scre ening of mother care, delayed ICD-V23.7 Inactive Kristin Pagan QUALITY SYSTEMS SPECIALIST NEED FOR PROPHYLACTIC VACCINATION WITH NLOTYCJ-PTBUL-Y UBELLA (MMR) VACCINE ICD-V06.4 Inactive Cintia Pagan QUALITY SYSTEMS SPECIALIST Contraceptive management ICD-V25.9 Inactive Dionne Stewart MD follow-up, routine ICD-V24.2 Inacti ve Dionne Stewart MD Vaginal discharge ICD-623.5 Inactive Dionne spencer MD 29 weeks gestation of ICD-V28.9 Inac tive Nayeli Duke APRN Medication List Medication Instructions Start Date Stop Date Generic Name NDC Status Provider Patient Instruction ACYCLOVIR 400 MG ORAL TABLET One tab PO BID until delivery 06/23 ACYCLOVIR 24938010720 Active Dionne Stewart MD Active SKLICE 0.5 % EXTERNAL LOTION Apply 4oz to dry hair and rinse of after 10 minutes IVERMECTIN 05579020754 No Longer Active Megan lowe Active TRUE METRIX BLOOD GLUCOSE TEST IN VITRO STRIP Check bl ood sugars four times a day as directed for gestational DM; O24.420 GLUC OSE BLOOD 54364683801 Active Nayeli Duke APRN Active TRUE METRIX GO GLUCOSE METER W/DEVICE KIT Check blood sugars as directed BLOOD GLUCOSE MONITORING SUPPL 19839286312 Active Nayeli Duke APRN Active LANCETS Test blood sugars as directed for gestational DM O24. 420 LANCETS 86364877413 Active Nayeli Duke APRN Activ e AUGMENTIN 875-125 MG ORAL TABLET 1 po BID x 10 days 20 09/06/11 AMOXICILLIN-POT CLAVULANATE 64983984152 No Longer Active Rosalina Bland QUALITY SYSTEMS SPECIALIST Active FERROUS SULFATE 325 (65 FE) MG ORAL TABLET 1 tablet daily 5 FERROUS SULFATE 14392910714 Active Estela Clifton LPN Active LORATADINE 10 MG ORAL TABLET 1 tablet by mouth daily LORATADINE 71924259479 Active Dionne Stewart MD Active TYLENOL PM EXTRA STRENGTH 500-25 MG ORAL TABLET PRN 12/31 DIPHENHYDRAMINE-APAP (SLEEP) 28395442730 No Longer Active Dionne Stewart MD Active CONCEPT DHA 53.5-38-1 MG ORAL CAPSULE one tab PO daily LDFFTA-BTASQ-AVJB-FA-OMEGA 3 24268031300 Active Dionne Stewart MD Active FLAGYL 500 MG ORAL TABLET 1 tablet PO BID for 7 days 2 METRONIDAZOLE 74825205543 No Longer Active Dionne Stewart MD Active EQL FORMULA 28-0.8 MG ORAL TABLET 1 tablet daily 1 VIT-FE FUMARATE-FA 32113899564 No Longer Active Dionne Stewart MD A ctive CONCEPT DHA 53.5-38-1 MG ORAL CAPSULE one tab PO daily AUEZIR-VONSC-YFCD-FA-OMEGA 3 49746079781 No Longer Active Dionne Stewart MD Active CYCLOBENZAPRINE HCL 10 MG ORAL TABLET 1 tablet by mout h three times daily as needed for muscle spasm/pain CYCLOBENZAPRINE HCL 20282694162 No Longer Active Dionne Stewart MD Active TRI-SPRINTEC 0.18/0.215/0.25 MG-35 MCG ORAL TABLET 1 po qd a s directed NORGESTIM-ETH ESTRAD TRIPHASIC 81048135497 N o Longer Active Dionne Stewart MD Active FLAGYL 250 MG ORAL TABLET One tablet three times a day METRONIDAZOLE 40251978184 No Longer Active Cintia Pagan APRN Active [facility] 28-0.8 MG ORAL TABLET 04/10 VIT-FE FUMARATE-FA 06767200227 No Longer Active Dionne Stewart MD Active [facility] 28-0.8 MG ORAL TABLET 04/10 [facility] 28-0.8 MG ORAL TABLET VIT-FE FUMARATE-FA Inactive TRI-SPRINTEC 0.18/0.215/0.25 MG-35 MCG ORAL TABLET 1 po qd a s directed TRI-SPRINTEC 0.18/0.215/0.25 MG-35 MCG ORAL TABL ET 553689 NORGESTIM-ETH ESTRAD TRIPHASIC Inactive CYCLOBENZAPRINE HCL 10 MG ORAL TABLET 1 tablet by mout h three times daily as needed for muscle spasm/pain CYCLOBENZAP RINE HCL 10 MG ORAL TABLET 428423 CYCLOBENZAPRINE HCL Inactive CONCEPT DHA 53.5-38-1 MG ORAL CAPSULE one tab PO daily CONCEPT DHA 53.5-38-1 MG ORAL CAPSULE XLOBTF-FJMQC-JLWX-FA-O BILLIE 3 Inactive FLAGYL 500 MG ORAL TABLET 1 tablet PO BID for 7 days 2 FLAGYL 500 MG ORAL TABLET 215875 METRONIDAZOLE Inactive TYLENOL PM EXTRA STRENGTH 500-25 MG ORAL TABLET PRN 12/31 TYLENOL PM EXTRA STRENGTH 500-25 MG ORAL TABLET 0187483 DIPHEN HYDRAMINE-APAP (SLEEP) Inactive SKLICE 0.5 % EXTERNAL LOTION Apply 4oz to dry hair and rinse of after 10 minutes SKLICE 0.5 % EXTERNAL LOTION IVERMEC TIN Inactive FLAGYL 250 MG ORAL TABLET One tablet three times a day FLAGYL 250 MG ORAL TABLET 835623 METRONIDAZOLE Inactive AUGMENTIN 875-125 MG ORAL TABLET 1 po BID x 10 days 09/06/11 AUGMENTIN 875-125 MG ORAL TABLET 702634 AMOXICILLIN-POT CLAVULANATE Inactive Immunizations Vaccine Administration Date [...] 11 .0-15.0 platelet count 226 THOUSAND/UL 10*3/mm3 072-571 0568/05/11 mean platelet volume 10.3 fL 7.5-12.5 Lab [...] SCREEN, RBCW/REFL I , Drug Abuse Pnl 01503 - Blood bank antibody screen, serum NO ANTIBODIES DETECTED Lab Report: CBC, [id number] Gluc cari-1spec - Hematology leukocyte count, blood [...] N Encounters Code Encounter Date Provider Facility CPT-55450 Level 4 Est. Patient 15:39:57 CDT Nayeli herrera [facility] CPT-85179 Level 3 Est. Patient 17:26:51 CDT Rosalina berg [facility] CPT-62277 Level 3 Est. Patient 17:31:05 ENGINEERED WOOD DESIGNER Cintia sommer [facility] Procedures Code Procedure Name Date Entry Date Standard Desc ription CPT-60529 Visit 10:38:39 CDT CPT-54858 Visit 08:28:55 CDT CPT-37381 Addl Vx - Ix admin via ID IM or jet injects without counseling by physician 18:18:11 CDT CPT-57790 Boostrix Intramuscular Suspension 5-2.5-18.5 201 04/01/05 18:18:11 CDT CPT-58542 First Vx - Ix admin via ID I M or jet injects without counseling by physician 18:18:11 CDT CPT-63333 Flulaval Intramuscular Injectable 18:18:11 CDT CPT-53382 Fluzone Thim Free 36mo and older 11:16:54 C DT CPT-89927 Tdap 7yrs or > 11:16:53 CDT CPT-06684 Visit 11:16:53 CDT CPT-90135 Visit 11:14:16 CDT CPT-82951 Visit 10:54:00 CDT CPT-63154 Visit 16:24:31 CDT CPT-90792 Sono OB comp > 14 weeks - XRAY USE ONLY 12:01:14 CDT CPT-58203 Visit 15:58:08 CDT CPT-75550 Visit 12:16:56 CDT CPT-90344M Sono OB comp <14 weeks ([place] Only) - X RAY USE ONLY 12:09:02 CDT CPT-85312 Spec Collection and Handling Fee 10:11:50 C DT CPT-79890 Visit 10:11:49 CDT CPT-J1050 Depo Provera 150 mg (Medroxyprogesterone) 08/30 16:06:30 ENGINEERED WOOD DESIGNER CPT-55139 Abx/Therapy Injection 16:06:30 ENGINEERED WOOD DESIGNER CPT-J1050 Depo Provera 150 mg (Medroxyprogesterone) 08/30 15:39:17 ENGINEERED WOOD DESIGNER CPT-08356 Visit 15:01:38 CDT CPT-48996 Sono OB comp > 14 weeks 16:05:04 CDT 03/18 CPT-63445 Spec Collection and Handling Fee 10:45:40 C DT CPT-39657 Visit 10:45:40 CDT
--- OUTSIDE RECORDS SUMMARY | 2020-01-04 23:52 | XMS REPORT | Clinical Summary ---
Author Author Admin, Giuliana Flores Organization [facility] Address Unknown Phone Unavailable Allergies, Adverse Reactions, [...] to health Tobacco abuse, gestational 305.1 Active iNlda Stewart MD Tobacco use disorder NEED FOR PROPHYLACTIC VACCINATION WITH KUQAMYI-IWQUG-S UBELLA (MMR) VACCINE V06.4 Resolved Cintia Pagan APRN Need for prophylactic vaccination with ugpevol-ormpo-uqpylii [MMR] vaccine Contraceptive management V25.9 Resolved Taiwo [...] gestation of V28.9 Inactive 2017 Nayeli Duke DAIRY FEED SALES CONSULTANT Encounter for unspecified scre ening of mother Abnormal biochemical finding on screening 796.5 20 09/03/10 Active Estela Clifton STAGE SET UP WORKER Abnormal finding on antenata l screening Sinusitis, acute frontal 461.1 Active Rosalina berg DAIRY FEED SALES CONSULTANT Acute frontal sinusitis GDM, diet controlled 648.80 Active Nayeli Duke DAIRY FEED SALES CONSULTANT Abnormal glucose tolerance complicating , childbirth, or the puerperium, unspecified as to episode of care or not applicable 30 weeks gestation of V28.9 Inactive 2017 Nayeli Duke DAIRY FEED SALES CONSULTANT Encounter for unspecified scre ening of mother 31 weeks gestation of V28.9 Inactive 2017 Dionne Stewart MD Encounter for unspecified scre ening of mother 33 weeks gestation of V28.9 Active 2017 Dionne Stewart MD Encounter for unspecified scre ening of mother care, delayed ICD-V23.7 Inactive Kristin Pagan DAIRY FEED SALES CONSULTANT NEED FOR PROPHYLACTIC VACCINATION WITH MDLHKNX-EAEMM-E UBELLA (MMR) VACCINE ICD-V06.4 Inactive Cintia Pagan DAIRY FEED SALES CONSULTANT Contraceptive management ICD-V25.9 Inactive Dionne Stewart MD follow-up, routine ICD-V24.2 Inacti ve Dionne Stewart MD Vaginal discharge ICD-623.5 Inactive Dionne spencer MD 29 weeks gestation of ICD-V28.9 Inac tive Nayeli Duke APRN Medication List Medication Instructions Start Date Stop Date Generic Name NDC Status Provider Patient Instruction ACYCLOVIR 400 MG ORAL TABLET One tab PO BID until delivery 06/23 ACYCLOVIR 45655306923 Active Dionne Stewart MD Active SKLICE 0.5 % EXTERNAL LOTION Apply 4oz to dry hair and rinse of after 10 minutes IVERMECTIN 27843504561 No Longer Active Megan lowe Active TRUE METRIX BLOOD GLUCOSE TEST IN VITRO STRIP Check bl ood sugars four times a day as directed for gestational DM; O24.420 GLUC OSE BLOOD 63239832475 Active Nayeli Duke APRN Active TRUE METRIX GO GLUCOSE METER W/DEVICE KIT Check blood sugars as directed BLOOD GLUCOSE MONITORING SUPPL 61897051559 Active Nayeli Duke APRN Active LANCETS Test blood sugars as directed for gestational DM O24. 420 LANCETS 14886890975 Active Nayeli Duke APRN Activ e AUGMENTIN 875-125 MG ORAL TABLET 1 po BID x 10 days 20 09/06/11 AMOXICILLIN-POT CLAVULANATE 75241407009 No Longer Active Rosalina Bland DAIRY FEED SALES CONSULTANT Active FERROUS SULFATE 325 (65 FE) MG ORAL TABLET 1 tablet daily 5 FERROUS SULFATE 91794961661 Active Estela Clifton LPN Active LORATADINE 10 MG ORAL TABLET 1 tablet by mouth daily LORATADINE 72019161025 Active Dionne Stewart MD Active TYLENOL PM EXTRA STRENGTH 500-25 MG ORAL TABLET PRN 12/31 DIPHENHYDRAMINE-APAP (SLEEP) 67865900503 No Longer Active Dionne Stewart MD Active CONCEPT DHA 53.5-38-1 MG ORAL CAPSULE one tab PO daily QOGELW-OTHVC-KAFT-FA-OMEGA 3 85631523122 Active Dionne Stewart MD Active FLAGYL 500 MG ORAL TABLET 1 tablet PO BID for 7 days 2 METRONIDAZOLE 82064388251 No Longer Active Dionne Stewart MD Active EQL FORMULA 28-0.8 MG ORAL TABLET 1 tablet daily 1 VIT-FE FUMARATE-FA 46905629652 No Longer Active Dionne Stewart MD A ctive CONCEPT DHA 53.5-38-1 MG ORAL CAPSULE one tab PO daily HCIQEC-YXLAA-UZTD-FA-OMEGA 3 53239373898 No Longer Active Dionne Stewart MD Active CYCLOBENZAPRINE HCL 10 MG ORAL TABLET 1 tablet by mout h three times daily as needed for muscle spasm/pain CYCLOBENZAPRINE HCL 01564104071 No Longer Active Dionne Stewart MD Active TRI-SPRINTEC 0.18/0.215/0.25 MG-35 MCG ORAL TABLET 1 po qd a s directed NORGESTIM-ETH ESTRAD TRIPHASIC 27432753683 N o Longer Active Dionne Stewart MD Active FLAGYL 250 MG ORAL TABLET One tablet three times a day METRONIDAZOLE 79684353228 No Longer Active Cintia Pagan APRN Active [facility] 28-0.8 MG ORAL TABLET 04/10 VIT-FE FUMARATE-FA 80940443991 No Longer Active Dionne Stewart MD Active [facility] 28-0.8 MG ORAL TABLET 04/10 [facility] 28-0.8 MG ORAL TABLET VIT-FE FUMARATE-FA Inactive TRI-SPRINTEC 0.18/0.215/0.25 MG-35 MCG ORAL TABLET 1 po qd a s directed TRI-SPRINTEC 0.18/0.215/0.25 MG-35 MCG ORAL TABL ET 877730 NORGESTIM-ETH ESTRAD TRIPHASIC Inactive CYCLOBENZAPRINE HCL 10 MG ORAL TABLET 1 tablet by mout h three times daily as needed for muscle spasm/pain CYCLOBENZAP RINE HCL 10 MG ORAL TABLET 277140 CYCLOBENZAPRINE HCL Inactive CONCEPT DHA 53.5-38-1 MG ORAL CAPSULE one tab PO daily CONCEPT DHA 53.5-38-1 MG ORAL CAPSULE SIXYDF-FHTJH-GTTR-FA-O BILLIE 3 Inactive FLAGYL 500 MG ORAL TABLET 1 tablet PO BID for 7 days 2 FLAGYL 500 MG ORAL TABLET 374066 METRONIDAZOLE Inactive TYLENOL PM EXTRA STRENGTH 500-25 MG ORAL TABLET PRN 12/31 TYLENOL PM EXTRA STRENGTH 500-25 MG ORAL TABLET 3100775 DIPHEN HYDRAMINE-APAP (SLEEP) Inactive SKLICE 0.5 % EXTERNAL LOTION Apply 4oz to dry hair and rinse of after 10 minutes SKLICE 0.5 % EXTERNAL LOTION IVERMEC TIN Inactive FLAGYL 250 MG ORAL TABLET One tablet three times a day FLAGYL 250 MG ORAL TABLET 014361 METRONIDAZOLE Inactive AUGMENTIN 875-125 MG ORAL TABLET 1 po BID x 10 days 09/06/11 AUGMENTIN 875-125 MG ORAL TABLET 591984 AMOXICILLIN-POT CLAVULANATE Inactive Immunizations Vaccine Administration Date [...] 11 .0-15.0 platelet count 226 THOUSAND/UL 10*3/mm3 937-693 7132/05/11 mean platelet volume 10.3 fL 7.5-12.5 Lab [...] SCREEN, RBCW/REFL I , [place] 97163 - Blood bank antibody screen, serum NO ANTIBODIES DETECTED Lab Report: CBC, [id number] Gluc cari-1spec - Hematology leukocyte count, blood [...] N Encounters Code Encounter Date Provider Facility CPT-35483 Level 4 Est. Patient 15:39:57 CDT Nayeli herrera [facility] CPT-51386 Level 3 Est. Patient 17:26:51 CDT Rosalina berg [facility] CPT-27181 Level 3 Est. Patient 17:31:05 INHALATION THERAPY AIDE Cintia sommer [facility] Procedures Code Procedure Name Date Entry Date Standard Desc ription CPT-04548 Visit 10:38:39 CDT CPT-72270 Visit 08:28:55 CDT CPT-38027 Addl Vx - Ix admin via ID IM or jet injects without counseling by physician 18:18:11 CDT CPT-37066 Boostrix Intramuscular Suspension 5-2.5-18.5 201 04/01/05 18:18:11 CDT CPT-35302 First Vx - Ix admin via ID I M or jet injects without counseling by physician 18:18:11 CDT CPT-80924 Flulaval Intramuscular Injectable 18:18:11 CDT CPT-96511 Fluzone Thim Free 36mo and older 11:16:54 C DT CPT-99103 Tdap 7yrs or > 11:16:53 CDT CPT-24859 Visit 11:16:53 CDT CPT-34121 Visit 11:14:16 CDT CPT-43209 Visit 10:54:00 CDT CPT-57319 Visit 16:24:31 CDT CPT-20561 Sono OB comp > 14 weeks - XRAY USE ONLY 12:01:14 CDT CPT-84487 Visit 15:58:08 CDT CPT-03274 Visit 12:16:56 CDT CPT-73899H Sono OB comp <14 weeks ([place] Only) - X RAY USE ONLY 12:09:02 CDT CPT-85760 Spec Collection and Handling Fee 10:11:50 C DT CPT-36547 Visit 10:11:49 CDT CPT-J1050 Depo Provera 150 mg (Medroxyprogesterone) 08/30 16:06:30 INHALATION THERAPY AIDE CPT-41171 Abx/Therapy Injection 16:06:30 INHALATION THERAPY AIDE CPT-J1050 Depo Provera 150 mg (Medroxyprogesterone) 08/30 15:39:17 INHALATION THERAPY AIDE CPT-07795 Visit 15:01:38 CDT CPT-56223 Sono OB comp > 14 weeks 16:05:04 CDT 03/18 CPT-12620 Spec Collection and Handling Fee 10:45:40 C DT CPT-55414 Visit 10:45:40 CDT
--- OUTSIDE RECORDS SUMMARY | 2020-01-04 23:52 | XMS REPORT | Clinical Summary ---
Author Author Admin, Giuliana Flores Organization [facility] Address Unknown Phone Unavailable Allergies, Adverse Reactions, [...] use disorder NEED FOR PROPHYLACTIC VACCINATION WITH BQMPZUR-JKHBK-Y UBELLA (MMR) VACCINE V06.4 Resolved Cintia Pagan APRN Need for prophylactic vaccination with jhctqrh-axvgd-ebajcsf [MMR] vaccine Contraceptive management V25.9 Resolved Taiwo [...] gestation of V28.9 Inactive 2017 Nayeli Duke FITTER HELPER Encounter for unspecified scre ening of mother Abnormal biochemical finding on screening 796.5 20 09/03/10 Active Estela Clifton LEARNING SUPPORT AIDE Abnormal finding on antenata l screening Sinusitis, acute frontal 461.1 Active Rosalina Se berg FITTER HELPER Acute frontal sinusitis GDM, diet controlled 648.80 Active Nayeli Duke FITTER HELPER Abnormal glucose tolerance complicating , childbirth, or the puerperium, unspecified as to episode of care or not applicable 30 weeks gestation of V28.9 Inactive 2017 Nayeli Duke FITTER HELPER Encounter for unspecified scre ening of mother 31 weeks gestation of V28.9 Inactive 2017 Dionne Stewart MD Encounter for unspecified scre ening of mother 33 weeks gestation of V28.9 Active 2017 Dionne Stewart MD Encounter for unspecified scre ening of mother care, delayed ICD-V23.7 Inactive Kristin Pagan FITTER HELPER NEED FOR PROPHYLACTIC VACCINATION WITH WCYVZBD-UQLEG-I UBELLA (MMR) VACCINE ICD-V06.4 Inactive Cintia Pagan FITTER HELPER Contraceptive management ICD-V25.9 Inactive Dionne Stewart MD follow-up, routine ICD-V24.2 Inacti ve Dionne Stewart MD Vaginal discharge ICD-623.5 Inactive Dionne spencer MD 29 weeks gestation of ICD-V28.9 Inac tive Nayeli Duke APRN Medication List Medication Instructions Start Date Stop Date Generic Name NDC Status Provider Patient Instruction ACYCLOVIR 400 MG ORAL TABLET One tab PO BID until delivery 06/23 ACYCLOVIR 93093793549 Active Dionne Stewart MD Active SKLICE 0.5 % EXTERNAL LOTION Apply 4oz to dry hair and rinse of after 10 minutes IVERMECTIN 76882680751 No Longer Active Megan lowe Active TRUE METRIX BLOOD GLUCOSE TEST IN VITRO STRIP Check bl ood sugars four times a day as directed for gestational DM; O24.420 GLUC OSE BLOOD 02194362968 Active Nayeli Duke APRN Active TRUE METRIX GO GLUCOSE METER W/DEVICE KIT Check blood sugars as directed BLOOD GLUCOSE MONITORING SUPPL 63061947614 Active Nayeli Duke APRN Active LANCETS Test blood sugars as directed for gestational DM O24. 420 LANCETS 96964046412 Active Nayeli Duke APRN Activ e AUGMENTIN 875-125 MG ORAL TABLET 1 po BID x 10 days 20 09/06/11 AMOXICILLIN-POT CLAVULANATE 57851601181 No Longer Active Rosalina Sell FITTER HELPER Active FERROUS SULFATE 325 (65 FE) MG ORAL TABLET 1 tablet daily 5 FERROUS SULFATE 73811935416 Active Estela Clifton LEARNING SUPPORT AIDE Active LORATADINE 10 MG ORAL TABLET 1 tablet by mouth daily LORATADINE 96025108484 Active Dionne Stewart MD Active TYLENOL PM EXTRA STRENGTH 500-25 MG ORAL TABLET PRN 12/31 DIPHENHYDRAMINE-APAP (SLEEP) 34195393706 No Longer Active Dionne Stewart MD Active CONCEPT DHA 53.5-38-1 MG ORAL CAPSULE one tab PO daily RTPGTE-YNJHK-RRBA-FA-OMEGA 3 26841115213 Active Dionne Stewart MD Active FLAGYL 500 MG ORAL TABLET 1 tablet PO BID for 7 days 2 METRONIDAZOLE 50385999474 No Longer Active Dionne Stewart MD Active EQL FORMULA 28-0.8 MG ORAL TABLET 1 tablet daily 1 VIT-FE FUMARATE-FA 31865103404 No Longer Active Dionne Stewart MD A ctive CONCEPT DHA 53.5-38-1 MG ORAL CAPSULE one tab PO daily GHUTYS-MEEQT-PLKK-FA-OMEGA 3 62585620310 No Longer Active Dionne Stewart MD Active CYCLOBENZAPRINE HCL 10 MG ORAL TABLET 1 tablet by mout h three times daily as needed for muscle spasm/pain CYCLOBENZAPRINE HCL 30347503043 No Longer Active Dionne Stewart MD Active TRI-SPRINTEC 0.18/0.215/0.25 MG-35 MCG ORAL TABLET 1 po qd a s directed NORGESTIM-ETH ESTRAD TRIPHASIC 26702614255 N o Longer Active Dionne Stewart MD Active FLAGYL 250 MG ORAL TABLET One tablet three times a day METRONIDAZOLE 69205459909 No Longer Active Cintia Pagan FITTER HELPER Active [facility] 28-0.8 MG ORAL TABLET 04/10 VIT-FE FUMARATE-FA 86552324962 No Longer Active Dionne Stewart MD Active [facility] 28-0.8 MG ORAL TABLET 04/10 [facility] 28-0.8 MG ORAL TABLET VIT-FE FUMARATE-FA Inactive TRI-SPRINTEC 0.18/0.215/0.25 MG-35 MCG ORAL TABLET 1 po qd a s directed TRI-SPRINTEC 0.18/0.215/0.25 MG-35 MCG ORAL TABL ET 304968 NORGESTIM-ETH ESTRAD TRIPHASIC Inactive CYCLOBENZAPRINE HCL 10 MG ORAL TABLET 1 tablet by mout h three times daily as needed for muscle spasm/pain CYCLOBENZAP RINE HCL 10 MG ORAL TABLET 292499 CYCLOBENZAPRINE HCL Inactive CONCEPT DHA 53.5-38-1 MG ORAL CAPSULE one tab PO daily CONCEPT DHA 53.5-38-1 MG ORAL CAPSULE OENMYW-THADA-SYFJ-FA-O BILLIE 3 Inactive FLAGYL 500 MG ORAL TABLET 1 tablet PO BID for 7 days 2 FLAGYL 500 MG ORAL TABLET 676955 METRONIDAZOLE Inactive TYLENOL PM EXTRA STRENGTH 500-25 MG ORAL TABLET PRN 12/31 TYLENOL PM EXTRA STRENGTH 500-25 MG ORAL TABLET 3042290 DIPHEN HYDRAMINE-APAP (SLEEP) Inactive SKLICE 0.5 % EXTERNAL LOTION Apply 4oz to dry hair and rinse of after 10 minutes SKLICE 0.5 % EXTERNAL LOTION IVERMEC TIN Inactive FLAGYL 250 MG ORAL TABLET One tablet three times a day FLAGYL 250 MG ORAL TABLET 447540 METRONIDAZOLE Inactive AUGMENTIN 875-125 MG ORAL TABLET 1 po BID x 10 days 09/06/11 AUGMENTIN 875-125 MG ORAL TABLET 000546 AMOXICILLIN-POT CLAVULANATE Inactive Immunizations Vaccine Administration Date [...] 11 .0-15.0 platelet count 226 THOUSAND/UL 10*3/mm3 584-141 3177/05/11 mean platelet volume 10.3 fL 7.5-12.5 Lab [...] SCREEN, RBCW/REFL I , [place] 50243 - Blood bank antibody screen, serum NO ANTIBODIES DETECTED Lab Report: CBC, [id number] Gluc cari-1spec - Hematology leukocyte count, blood [...] N Encounters Code Encounter Date Provider Facility CPT-50261 Level 4 Est. Patient 15:39:57 CDT Nayeli herrera [facility] CPT-82939 Level 3 Est. Patient 17:26:51 CDT Rosalina berg [facility] CPT-00094 Level 3 Est. Patient 17:31:05 BURGLAR ALARM MECHANIC Cintia sommer [facility] Procedures Code Procedure Name Date Entry Date Standard Desc ription CPT-86783 Visit 10:38:39 CDT CPT-60779 Visit 08:28:55 CDT CPT-12716 Addl Vx - Ix admin via ID IM or jet injects without counseling by physician 18:18:11 CDT CPT-98927 Boostrix Intramuscular Suspension 5-2.5-18.5 201 04/01/05 18:18:11 CDT CPT-50338 First Vx - Ix admin via ID I M or jet injects without counseling by physician 18:18:11 CDT CPT-60842 Flulaval Intramuscular Injectable 18:18:11 CDT CPT-57067 Fluzone Thim Free 36mo and older 11:16:54 C DT CPT-93760 Tdap 7yrs or > 11:16:53 CDT CPT-90158 Visit 11:16:53 CDT CPT-84541 Visit 11:14:16 CDT CPT-64452 Visit 10:54:00 CDT CPT-13280 Visit 16:24:31 CDT CPT-60179 Sono OB comp > 14 weeks - XRAY USE ONLY 12:01:14 CDT CPT-26089 Visit 15:58:08 CDT CPT-77400 Visit 12:16:56 CDT CPT-49487H Sono OB comp <14 weeks ([place] Only) - X RAY USE ONLY 12:09:02 CDT CPT-96339 Spec Collection and Handling Fee 10:11:50 C DT CPT-04831 Visit 10:11:49 CDT CPT-J1050 Depo Provera 150 mg (Medroxyprogesterone) 08/30 16:06:30 BURGLAR ALARM MECHANIC CPT-79494 Abx/Therapy Injection 16:06:30 BURGLAR ALARM MECHANIC CPT-J1050 Depo Provera 150 mg (Medroxyprogesterone) 08/30 15:39:17 BURGLAR ALARM MECHANIC CPT-88639 Visit 15:01:38 CDT CPT-33269 Sono OB comp > 14 weeks 16:05:04 CDT 03/18 CPT-28091 Spec Collection and Handling Fee 10:45:40 C DT CPT-85992 Visit 10:45:40 CDT
--- OUTSIDE RECORDS SUMMARY | 2020-01-04 23:52 | XMS REPORT | Clinical Summary ---
Author Author Admin, Giuliana Flores Organization [facility] Address Unknown Phone Unavailable Allergies, Adverse [...] use disorder NEED FOR PROPHYLACTIC VACCINATION WITH KTRYFSC-TWLCD-Y UBELLA (MMR) VACCINE V06.4 Resolved Cintia Pagan APRN Need for prophylactic vaccination with vbfobdj-prdba-[place] [MMR] vaccine Contraceptive management V25.9 Resolved Taiwo [...] gestation of V28.9 Inactive 2017 Nayeli Duke BACKING IN MACHINE TENDER Encounter for unspecified scre ening of mother Abnormal biochemical finding on screening 796.5 20 09/03/10 Active Estela Clifton MANAGER [employer] Abnormal finding on antenata l screening Sinusitis, acute frontal 461.1 Active Rosalina Se berg BACKING IN MACHINE TENDER Acute frontal sinusitis GDM, diet controlled 648.80 Active Nayeli Duke BACKING IN MACHINE TENDER Abnormal glucose tolerance complicating , childbirth, or the puerperium, unspecified as to episode of care or not applicable 30 weeks gestation of V28.9 Inactive 2017 Nayeli Duke BACKING IN MACHINE TENDER Encounter for unspecified scre ening of mother 31 weeks gestation of V28.9 Inactive 2017 Dionne Stewart MD Encounter for unspecified scre ening of mother 33 weeks gestation of V28.9 Active 2017 Dionne Stewart MD Encounter for unspecified scre ening of mother care, delayed ICD-V23.7 Inactive Kristin Pagan BACKING IN MACHINE TENDER NEED FOR PROPHYLACTIC VACCINATION WITH EYXQTYD-IFBXY-H UBELLA (MMR) VACCINE ICD-V06.4 Inactive Cintia Pagan BACKING IN MACHINE TENDER Contraceptive management ICD-V25.9 Inactive Dionne Stewart MD follow-up, routine ICD-V24.2 Inacti ve Dionne Stewart MD Vaginal discharge ICD-623.5 Inactive Dionne spencer MD 29 weeks gestation of ICD-V28.9 Inac tive Nayeli Duke APRN Medication List Medication Instructions Start Date Stop Date Generic Name NDC Status Provider Patient Instruction ACYCLOVIR 400 MG ORAL TABLET One tab PO BID until delivery 06/23 ACYCLOVIR 06178500606 Active Dionne Stewart MD Active SKLICE 0.5 % EXTERNAL LOTION Apply 4oz to dry hair and rinse of after 10 minutes IVERMECTIN 12919756863 No Longer Active Megan lowe Active TRUE METRIX BLOOD GLUCOSE TEST IN VITRO STRIP Check bl ood sugars four times a day as directed for gestational DM; O24.420 GLUC OSE BLOOD 58047462681 Active Nayeli Duke APRN Active TRUE METRIX GO GLUCOSE METER W/DEVICE KIT Check blood sugars as directed BLOOD GLUCOSE MONITORING SUPPL 90636869843 Active Nayeli Duke APRN Active LANCETS Test blood sugars as directed for gestational DM O24. 420 LANCETS 25640974503 Active Nayeli Duke APRN Activ e AUGMENTIN 875-125 MG ORAL TABLET 1 po BID x 10 days 20 09/06/11 AMOXICILLIN-POT CLAVULANATE 06817399950 No Longer Active Rosalina Sell BACKING IN MACHINE TENDER Active FERROUS SULFATE 325 (65 FE) MG ORAL TABLET 1 tablet daily 5 FERROUS SULFATE 28733365816 Active Estela Clifton MANAGER [employer]ACLE DATABASE Active LORATADINE 10 MG ORAL TABLET 1 tablet by mouth daily LORATADINE 60416129955 Active Dionne Stewart MD Active TYLENOL PM EXTRA STRENGTH 500-25 MG ORAL TABLET PRN 12/31 DIPHENHYDRAMINE-APAP (SLEEP) 50022405485 No Longer Active Dionne Stewart MD Active CONCEPT DHA 53.5-38-1 MG ORAL CAPSULE one tab PO daily OZCKWE-CSWYC-XICO-FA-OMEGA 3 13581062137 Active Dionne Stewart MD Active FLAGYL 500 MG ORAL TABLET 1 tablet PO BID for 7 days 2 METRONIDAZOLE 39490509453 No Longer Active Dionne Stewart MD Active EQL FORMULA 28-0.8 MG ORAL TABLET 1 tablet daily 1 VIT-FE FUMARATE-FA 95477337579 No Longer Active Dionne Stewart MD A ctive CONCEPT DHA 53.5-38-1 MG ORAL CAPSULE one tab PO daily FNJUGK-ZGKXR-GJXD-FA-OMEGA 3 90264945193 No Longer Active Dionne Stewart MD Active CYCLOBENZAPRINE HCL 10 MG ORAL TABLET 1 tablet by mout h three times daily as needed for muscle spasm/pain CYCLOBENZAPRINE HCL 36223335931 No Longer Active Dionne Stewart MD Active TRI-SPRINTEC 0.18/0.215/0.25 MG-35 MCG ORAL TABLET 1 po qd a s directed NORGESTIM-ETH ESTRAD TRIPHASIC 81701938226 N o Longer Active Dionne Stewart MD Active FLAGYL 250 MG ORAL TABLET One tablet three times a day METRONIDAZOLE 39305558711 No Longer Active Cintia Pagan BACKING IN MACHINE TENDER Active [facility] 28-0.8 MG ORAL TABLET 04/10 VIT-FE FUMARATE-FA 52448603204 No Longer Active Dionne Stewart MD Active [facility] 28-0.8 MG ORAL TABLET 04/10 [facility] 28-0.8 MG ORAL TABLET VIT-FE FUMARATE-FA Inactive TRI-SPRINTEC 0.18/0.215/0.25 MG-35 MCG ORAL TABLET 1 po qd a s directed TRI-SPRINTEC 0.18/0.215/0.25 MG-35 MCG ORAL TABL ET 887412 NORGESTIM-ETH ESTRAD TRIPHASIC Inactive CYCLOBENZAPRINE HCL 10 MG ORAL TABLET 1 tablet by mout h three times daily as needed for muscle spasm/pain CYCLOBENZAP RINE HCL 10 MG ORAL TABLET 746998 CYCLOBENZAPRINE HCL Inactive CONCEPT DHA 53.5-38-1 MG ORAL CAPSULE one tab PO daily CONCEPT DHA 53.5-38-1 MG ORAL CAPSULE MFLDPR-VIDRH-GNZD-FA-O BILLIE 3 Inactive FLAGYL 500 MG ORAL TABLET 1 tablet PO BID for 7 days 2 FLAGYL 500 MG ORAL TABLET 100831 METRONIDAZOLE Inactive TYLENOL PM EXTRA STRENGTH 500-25 MG ORAL TABLET PRN 12/31 TYLENOL PM EXTRA STRENGTH 500-25 MG ORAL TABLET 5957423 DIPHEN HYDRAMINE-APAP (SLEEP) Inactive SKLICE 0.5 % EXTERNAL LOTION Apply 4oz to dry hair and rinse of after 10 minutes SKLICE 0.5 % EXTERNAL LOTION IVERMEC TIN Inactive FLAGYL 250 MG ORAL TABLET One tablet three times a day FLAGYL 250 MG ORAL TABLET 124508 METRONIDAZOLE Inactive AUGMENTIN 875-125 MG ORAL TABLET 1 po BID x 10 days 09/06/11 AUGMENTIN 875-125 MG ORAL TABLET 464098 AMOXICILLIN-POT CLAVULANATE Inactive Immunizations Vaccine Administration Date [...] d blood pressure, diastolic 57 mm[Hg] BP imramontes blood pressure, systolic 109 mm[Hg] BP sys [...] 11 .0-15.0 platelet count 226 THOUSAND/UL 10*3/mm3 877-653 0338/05/11 mean platelet volume 10.3 fL 7.5-12.5 Lab [...] SCREEN, RBCW/REFL I , [place] [address] - Blood bank antibody screen, serum NO ANTIBODIES DETECTED Lab Report: CBC, [id number] Gluc cari-1spec - Hematology leukocyte count, blood [...] N Encounters Code Encounter Date Provider Facility CPT-90636 Level 4 Est. Patient 15:39:57 CDT Nayeli herrera [facility] CPT-99621 Level 3 Est. Patient 17:26:51 CDT Rosalina berg [facility] CPT-27102 Level 3 Est. Patient 17:31:05 RAKER BUFFING WHEEL Cintia sommer [facility] Procedures Code Procedure Name Date Entry Date Standard Desc ription CPT-91106 Visit 10:38:39 CDT CPT-35650 Visit 08:28:55 CDT CPT-31685 Addl Vx - Ix admin via ID IM or jet injects without counseling by physician 18:18:11 CDT CPT-59130 Boostrix Intramuscular Suspension 5-2.5-18.5 201 04/01/05 18:18:11 CDT CPT-85945 First Vx - Ix admin via ID I M or jet injects without counseling by physician 18:18:11 CDT CPT-42759 Flulaval Intramuscular Injectable 18:18:11 CDT CPT-93746 Fluzone Thim Free 36mo and older 11:16:54 C DT CPT-74748 Tdap 7yrs or > 11:16:53 CDT CPT-85705 Visit 11:16:53 CDT CPT-40836 Visit 11:14:16 CDT CPT-44948 Visit 10:54:00 CDT CPT-59630 Visit 16:24:31 CDT CPT-99808 Sono OB comp > 14 weeks - XRAY USE ONLY 12:01:14 CDT CPT-98288 Visit 15:58:08 CDT CPT-29605 Visit 12:16:56 CDT CPT-38957Z Sono OB comp <14 weeks ([place] Only) - X RAY USE ONLY 12:09:02 CDT CPT-04348 Spec Collection and Handling Fee 10:11:50 C DT CPT-58047 Visit 10:11:49 CDT CPT-J1050 Depo Provera 150 mg (Medroxyprogesterone) 08/30 16:06:30 RAKER BUFFING WHEEL CPT-79980 Abx/Therapy Injection 16:06:30 RAKER BUFFING WHEEL CPT-J1050 Depo Provera 150 mg (Medroxyprogesterone) 08/30 15:39:17 RAKER BUFFING WHEEL CPT-50394 Visit 15:01:38 CDT CPT-74677 Sono OB comp > 14 weeks 16:05:04 CDT 03/18 CPT-34836 Spec Collection and Handling Fee 10:45:40 C DT CPT-95011 Visit 10:45:40 CDT
--- OUTSIDE RECORDS SUMMARY | 2020-01-04 23:53 | XMS REPORT | Clinical Summary ---
Author Author Admin, Giuliana Flores Organization [facility] Address Unknown Phone Unavailable Allergies, Adverse Reactions, [...] use disorder NEED FOR PROPHYLACTIC VACCINATION WITH OVZMLLL-SSCTH-B UBELLA (MMR) VACCINE V06.4 Resolved Cintia Pagan APRN Need for prophylactic vaccination with hajxbih-cfwvm-cuuwybb [MMR] vaccine Contraceptive management V25.9 Resolved Taiwo [...] gestation of V28.9 Inactive 2017 Nayeli Duke COTTON GRADER Encounter for unspecified scre ening of mother Abnormal biochemical finding on screening 796.5 20 09/03/10 Active Estela Clifton UNLOADER Abnormal finding on antenata l screening Sinusitis, acute frontal 461.1 Active Rosalina Se berg COTTON GRADER Acute frontal sinusitis GDM, diet controlled 648.80 Active Nayeli Duke COTTON GRADER Abnormal glucose tolerance complicating , childbirth, or the puerperium, unspecified as to episode of care or not applicable 30 weeks gestation of V28.9 Inactive 2017 Nayeli Duke COTTON GRADER Encounter for unspecified scre ening of mother 31 weeks gestation of V28.9 Active 2017 Dionne Stewart MD Encounter for unspecified scre ening of mother care, delayed ICD-V23.7 Inactive Kristin Pagan COTTON GRADER NEED FOR PROPHYLACTIC VACCINATION WITH ZDKTTNT-TPNHX-M UBELLA (MMR) VACCINE ICD-V06.4 Inactive Cintia Pagan COTTON GRADER Contraceptive management ICD-V25.9 Inactive Dionne Stewart MD follow-up, routine ICD-V24.2 Inacti ve Dionne Stewart MD Vaginal discharge ICD-623.5 Inactive Dionne spencer MD 29 weeks gestation of ICD-V28.9 Inac tive Nayeli Duke APRN Medication List Medication Instructions Start Date Stop Date Generic Name NDC Status Provider Patient Instruction SKLICE 0.5 % EXTERNAL LOTION Apply 4oz to dry hair and rinse of after 10 minutes IVERMECTIN 08522310349 Active Estela Clifton LPN Active TRUE METRIX BLOOD GLUCOSE TEST IN VITRO STRIP Check bl ood sugars four times a day as directed for gestational DM; O24.420 GLUC OSE BLOOD 40750632990 Active Nayeli Duke APRN Active TRUE METRIX GO GLUCOSE METER W/DEVICE KIT Check blood sugars as directed BLOOD GLUCOSE MONITORING SUPPL 24178981199 Active Nayeli Duke APRN Active LANCETS Test blood sugars as directed for gestational DM O24. 420 LANCETS 35736502620 Active Nayeli Duke APRN Activ e AUGMENTIN 875-125 MG ORAL TABLET 1 po BID x 10 days 09/06/11 AMOXICILLIN-POT CLAVULANATE 14285457675 No Longer Active Rosalina Bland APRN Active FERROUS SULFATE 325 (65 FE) MG ORAL TABLET 1 tablet daily 5 FERROUS SULFATE 96392251315 Active Estela Clifton LPN Active LORATADINE 10 MG ORAL TABLET 1 tablet by mouth daily LORATADINE 05268229225 Active Dionne Stewart MD Active TYLENOL PM EXTRA STRENGTH 500-25 MG ORAL TABLET PRN 12/31 DIPHENHYDRAMINE-APAP (SLEEP) 71628661134 No Longer Active Dionne Stewrat MD Active CONCEPT DHA 53.5-38-1 MG ORAL CAPSULE one tab PO daily IPOJCR-XWGQH-SZBC-FA-OMEGA 3 31747089528 Active Dionne Stewart MD Active FLAGYL 500 MG ORAL TABLET 1 tablet PO BID for 7 days 2 METRONIDAZOLE 37940208248 No Longer Active Dionne Stewart MD Active EQL FORMULA 28-0.8 MG ORAL TABLET 1 tablet daily 1 VIT-FE FUMARATE-FA 09232069431 No Longer Active Dionne Stewart MD A ctive CONCEPT DHA 53.5-38-1 MG ORAL CAPSULE one tab PO daily LBUGSV-VHIHX-YVBF-FA-OMEGA 3 38646893520 No Longer Active Dionne Stewart MD Active CYCLOBENZAPRINE HCL 10 MG ORAL TABLET 1 tablet by mout h three times daily as needed for muscle spasm/pain CYCLOBENZAPRINE HCL 19993823050 No Longer Active Dionne Stewart MD Active TRI-SPRINTEC 0.18/0.215/0.25 MG-35 MCG ORAL TABLET 1 po qd a s directed NORGESTIM-ETH ESTRAD TRIPHASIC 12642440443 N o Longer Active Dionne Stewart MD Active FLAGYL 250 MG ORAL TABLET One tablet three times a day METRONIDAZOLE 64726988310 No Longer Active Cintia Pagan APRN Active [facility] 28-0.8 MG ORAL TABLET 04/10 VIT-FE FUMARATE-FA 85316401699 No Longer Active Dionne Stewart MD Active [facility] 28-0.8 MG ORAL TABLET 04/10 [facility] 28-0.8 MG ORAL TABLET VIT-FE FUMARATE-FA Inactive TRI-SPRINTEC 0.18/0.215/0.25 MG-35 MCG ORAL TABLET 1 po qd a s directed TRI-SPRINTEC 0.18/0.215/0.25 MG-35 MCG ORAL TABL ET 230052 NORGESTIM-ETH ESTRAD TRIPHASIC Inactive CYCLOBENZAPRINE HCL 10 MG ORAL TABLET 1 tablet by mout h three times daily as needed for muscle spasm/pain CYCLOBENZAP RINE HCL 10 MG ORAL TABLET 426308 CYCLOBENZAPRINE HCL Inactive CONCEPT DHA 53.5-38-1 MG ORAL CAPSULE one tab PO daily CONCEPT DHA 53.5-38-1 MG ORAL CAPSULE MZNNMQ-NUULK-ILYH-FA-O BILLIE 3 Inactive FLAGYL 500 MG ORAL TABLET 1 tablet PO BID for 7 days 2 FLAGYL 500 MG ORAL TABLET 135941 METRONIDAZOLE Inactive TYLENOL PM EXTRA STRENGTH 500-25 MG ORAL TABLET PRN 12/31 TYLENOL PM EXTRA STRENGTH 500-25 MG ORAL TABLET 3875161 DIPHEN HYDRAMINE-APAP (SLEEP) Inactive FLAGYL 250 MG ORAL TABLET One tablet three times a day FLAGYL 250 MG ORAL TABLET 905470 METRONIDAZOLE Inactive AUGMENTIN 875-125 MG ORAL TABLET 1 po BID x 10 days 09/06/11 AUGMENTIN 875-125 MG ORAL TABLET 283069 AMOXICILLIN-POT CLAVULANATE Inactive Immunizations Vaccine Administration Date Value Standard Koko cription hepatitis B vaccine series yes hepat itis B vaccine, unspecified formulation hepatitis B vaccine series no hepat itis B vaccine, unspecified formulation Vital Signs Date Name Value Unit Range Description blood pressure, diastolic 64 mm[Hg] BP miramontes [...] 11 .0-15.0 platelet count 226 THOUSAND/UL 10*3/mm3 009-913 3624/05/11 mean platelet volume 10.3 fL 7.5-12.5 Lab [...] SCREEN, RBCW/REFL I , Drug Abuse Pnl 10-50/36451 - Blood bank antibody screen, serum NO ANTIBODIES DETECTED Lab Report: CBC, [id number] Gluc cari-1spec - Hematology leukocyte count, blood [...] N Encounters Code Encounter Date Provider Facility CPT-04365 Level 4 Est. Patient 15:39:57 CDT Nayeli herrera [facility] CPT-58910 Level 3 Est. Patient 17:26:51 CDT Rosalina Se ll [facility] CPT-83006 Level 3 Est. Patient 17:31:05 GAUGE MAKER Cintia sommer [facility] Procedures Code Procedure Name Date Entry Date Standard Desc ription CPT-64013 Visit 08:28:55 CDT CPT-73095 Addl Vx - Ix admin via ID IM or jet injects without counseling by physician 18:18:11 CDT CPT-48626 Boostrix Intramuscular Suspension 5-2.5-18.5 201 04/01/05 18:18:11 CDT CPT-89698 First Vx - Ix admin via ID I M or jet injects without counseling by physician 18:18:11 CDT CPT-15905 Flulaval Intramuscular Injectable 18:18:11 CDT CPT-33985 Fluzone Thim Free 36mo and older 11:16:54 C DT CPT-61386 Tdap 7yrs or > 11:16:53 CDT CPT-58278 Visit 11:16:53 CDT CPT-11001 Visit 11:14:16 CDT CPT-01405 Visit 10:54:00 CDT CPT-66411 Visit 16:24:31 CDT CPT-52736 Sono OB comp > 14 weeks - XRAY USE ONLY 12:01:14 CDT CPT-72446 Visit 15:58:08 CDT CPT-04036 Visit 12:16:56 CDT CPT-72752V Sono OB comp <14 weeks ([place] Only) - X RAY USE ONLY 12:09:02 CDT CPT-00892 Spec Collection and Handling Fee 10:11:50 C DT CPT-15462 Visit 10:11:49 CDT CPT-J1050 Depo Provera 150 mg (Medroxyprogesterone) 08/30 16:06:30 GAUGE MAKER CPT-22120 Abx/Therapy Injection 16:06:30 GAUGE MAKER CPT-J1050 Depo Provera 150 mg (Medroxyprogesterone) 08/30 15:39:17 GAUGE MAKER CPT-41359 Visit 15:01:38 CDT CPT-98880 Sono OB comp > 14 weeks 16:05:04 CDT 03/18 CPT-98767 Spec Collection and Handling Fee 10:45:40 C DT CPT-39874 Visit 10:45:40 CDT
--- OUTSIDE RECORDS SUMMARY | 2020-01-04 23:53 | XMS REPORT | Clinical Summary ---
Author Author Admin, Giuliana Flores Organization [facility] Address Unknown Phone Unavailable Allergies, Adverse [...] use disorder NEED FOR PROPHYLACTIC VACCINATION WITH YAFQBGB-ALVIE-Q UBELLA (MMR) VACCINE V06.4 Resolved Cintia Pagan APRN Need for prophylactic vaccination with ehkxwue-tvknh-xttpnlj [MMR] vaccine Contraceptive management V25.9 Resolved Taiwo [...] gestation of V28.9 Inactive 2017 Nayeli Duke SHOE STOCK ASSOCIATE Encounter for unspecified scre ening of mother Abnormal biochemical finding on screening 796.5 20 09/03/10 Active Estela Clifton ACTUARY Abnormal finding on antenata l screening Sinusitis, acute frontal 461.1 Active Rosalina Se berg SHOE STOCK ASSOCIATE Acute frontal sinusitis GDM, diet controlled 648.80 Active Nayeli Duke SHOE STOCK ASSOCIATE Abnormal glucose tolerance complicating , childbirth, or the puerperium, unspecified as to episode of care or not applicable 30 weeks gestation of V28.9 Inactive 2017 Nayeli Duke SHOE STOCK ASSOCIATE Encounter for unspecified scre ening of mother 31 weeks gestation of V28.9 Active 2017 Dionne Stewart MD Encounter for unspecified scre ening of mother care, delayed ICD-V23.7 Inactive Kristin Pagan SHOE STOCK ASSOCIATE NEED FOR PROPHYLACTIC VACCINATION WITH JYNYXWU-KCVHF-F UBELLA (MMR) VACCINE ICD-V06.4 Inactive Cintia Pagan SHOE STOCK ASSOCIATE Contraceptive management ICD-V25.9 Inactive Dionne Stewart [...] and rinse of after 10 minutes IVERMECTIN 22006725187 Active Estela Clifton LPN Active TRUE METRIX BLOOD GLUCOSE TEST IN VITRO STRIP Check bl ood sugars four times a day as directed for gestational DM; O24.420 GLUC OSE BLOOD 40356559439 Active Nayeli Duke APRN Active TRUE METRIX GO GLUCOSE METER W/DEVICE KIT Check blood sugars as directed BLOOD GLUCOSE MONITORING SUPPL 12888800576 Active Nayeli Duke APRN Active LANCETS Test blood sugars as directed for gestational DM O24. 420 LANCETS 97823124022 Active Nayeli Duke APRN Activ e AUGMENTIN 875-125 MG ORAL TABLET 1 po BID x 10 days 09/06/11 AMOXICILLIN-POT CLAVULANATE 51979001662 No Longer Active Rosalina Bland APRN Active FERROUS SULFATE 325 (65 FE) MG ORAL TABLET 1 tablet daily 5 FERROUS SULFATE 74918508342 Active Estela Clifton LPN Active LORATADINE 10 MG ORAL TABLET 1 tablet by mouth daily LORATADINE 29846187436 Active Dionne Stewart MD Active TYLENOL PM EXTRA STRENGTH 500-25 MG ORAL TABLET PRN 12/31 DIPHENHYDRAMINE-APAP (SLEEP) 86127720759 No Longer Active Dionne Stewart MD Active CONCEPT DHA 53.5-38-1 MG ORAL CAPSULE one tab PO daily ZGZIPI-NUEIE-XSTN-FA-OMEGA 3 55441328527 Active Dionne Stewart MD Active FLAGYL 500 MG ORAL TABLET 1 tablet PO BID for 7 days 2 METRONIDAZOLE 86467141680 No Longer Active Dionne Stewart MD Active EQL FORMULA 28-0.8 MG ORAL TABLET 1 tablet daily 1 VIT-FE FUMARATE-FA 80166750123 No Longer Active Dionne Stewart MD A ctive CONCEPT DHA 53.5-38-1 MG ORAL CAPSULE one tab PO daily LKSHKD-SKPMB-BAHR-FA-OMEGA 3 51120421672 No Longer Active Dionne Stewart MD Active CYCLOBENZAPRINE HCL 10 MG ORAL TABLET 1 tablet by mout h three times daily as needed for muscle spasm/pain CYCLOBENZAPRINE HCL 10029547782 No Longer Active Dionne Stewart MD Active TRI-SPRINTEC 0.18/0.215/0.25 MG-35 MCG ORAL TABLET 1 po qd a s directed NORGESTIM-ETH ESTRAD TRIPHASIC 15487988214 N o Longer Active Dionne Stewart MD Active FLAGYL 250 MG ORAL TABLET One tablet three times a day METRONIDAZOLE 28869471083 No Longer Active Cintia Pagan APRN Active [facility] 28-0.8 MG ORAL TABLET 04/10 VIT-FE FUMARATE-FA 83039956349 No Longer Active Dionne Stewart MD Active [facility] 28-0.8 MG ORAL TABLET 04/10 [facility] 28-0.8 MG ORAL TABLET VIT-FE FUMARATE-FA Inactive TRI-SPRINTEC 0.18/0.215/0.25 MG-35 MCG ORAL TABLET 1 po qd a s directed TRI-SPRINTEC 0.18/0.215/0.25 MG-35 MCG ORAL TABL ET 648850 NORGESTIM-ETH ESTRAD TRIPHASIC Inactive CYCLOBENZAPRINE HCL 10 MG ORAL TABLET 1 tablet by mout h three times daily as needed for muscle spasm/pain CYCLOBENZAP RINE HCL 10 MG ORAL TABLET 190243 CYCLOBENZAPRINE HCL Inactive CONCEPT DHA 53.5-38-1 MG ORAL CAPSULE one tab PO daily CONCEPT DHA 53.5-38-1 MG ORAL CAPSULE OMOPVW-QVRIP-GXLZ-FA-O BILLIE 3 Inactive FLAGYL 500 MG ORAL TABLET 1 tablet PO BID for 7 days 2 FLAGYL 500 MG ORAL TABLET 136999 METRONIDAZOLE Inactive TYLENOL PM EXTRA STRENGTH 500-25 MG ORAL TABLET PRN 12/31 TYLENOL PM EXTRA STRENGTH 500-25 MG ORAL TABLET 3395893 DIPHEN HYDRAMINE-APAP (SLEEP) Inactive FLAGYL 250 MG ORAL TABLET One tablet three times a day FLAGYL 250 MG ORAL TABLET 062970 METRONIDAZOLE Inactive AUGMENTIN 875-125 MG ORAL TABLET 1 po BID x 10 days 09/06/11 AUGMENTIN 875-125 MG ORAL TABLET 683061 AMOXICILLIN-POT CLAVULANATE Inactive Immunizations Vaccine Administration Date [...] 11 .0-15.0 platelet count 226 THOUSAND/UL 10*3/mm3 034-138 6101/05/11 mean platelet volume 10.3 fL 7.5-12.5 Lab [...] SCREEN, RBCW/REFL I , Drug Abuse Pnl 10-50/26789 - Blood bank antibody screen, serum NO ANTIBODIES DETECTED Lab Report: CBC, [id number]--[id number] Gluc cari-1spec - Hematology leukocyte count, blood 10.2 10^3/MM^3 10*3/mm3 4.6-10.2 mean corpuscular hemoglobin concentration, RBC 33.9 G/DL % 31.8-35.4 red blood cell distribution width 11.1 % 13 .0-18.0 platelet count 201 10^3/MM^3 10*3/mm3 749-049 5899/09/21 erythrocyte (RBC) count 3.30 10^6/MM^3 10*6/mm3 3.80-5.8 0 hemoglobin, blood 10.5 g/dL 12.0-16.0 hematocrit, blood 31.1 % 37.0-47.0 mean corpuscular volume, RBC 94 fL 80-97 mean corpuscular hemoglobin, RBC 31.9 pg 27. 0-31.2 Lab Report: OBGTT3 - Chemistry blood glucose [...] N Encounters Code Encounter Date Provider Facility CPT-09018 Level 4 Est. Patient 15:39:57 CDT Nayeli herrera [facility] CPT-29849 Level 3 Est. Patient 17:26:51 CDT Rosalina berg [facility] CPT-18473 Level 3 Est. Patient 17:31:05 [employer]AT [employer] PLANT UTILITY SUPERVISOR Cintia sommer [facility] Procedures Code Procedure Name Date Entry Date Standard Desc ription CPT-24635 Visit 08:28:55 CDT CPT-52389 Addl Vx - Ix admin via ID IM or jet injects without counseling by physician 18:18:11 CDT CPT-45363 Boostrix Intramuscular Suspension 5-2.5-18.5 201 04/01/05 18:18:11 CDT CPT-00800 First Vx - Ix admin via ID I M or jet injects without counseling by physician 18:18:11 CDT CPT-13607 Flulaval Intramuscular Injectable 18:18:11 CDT CPT-47775 Fluzone Thim Free 36mo and older 11:16:54 C DT CPT-42946 Tdap 7yrs or > 11:16:53 CDT CPT-68956 Visit 11:16:53 CDT CPT-85989 Visit 11:14:16 CDT CPT-54974 Visit 10:54:00 CDT CPT-16728 Visit 16:24:31 CDT CPT-33896 Sono OB comp > 14 weeks - XRAY USE ONLY 12:01:14 CDT CPT-02093 Visit 15:58:08 CDT CPT-36497 Visit 12:16:56 CDT CPT-11724V Sono OB comp <14 weeks ([place] Only) - X RAY USE ONLY 12:09:02 CDT CPT-29603 Spec Collection and Handling Fee 10:11:50 C DT CPT-35721 Visit 10:11:49 CDT CPT-J1050 Depo Provera 150 mg (Medroxyprogesterone) 08/30 16:06:30 [employer] PL[employer] UTILITY SUPERVISOR CPT-89770 Abx/Therapy Injection 16:06:30 [employer] PLANT UTILITY SUPERVISOR CPT-J1050 Depo Provera 150 mg (Medroxyprogesterone) 08/30 15:39:17 [employer]AT AND PLANT UTILITY SUPERVISOR CPT-58733 Visit 15:01:38 CDT CPT-09389 Sono OB comp > 14 weeks 16:05:04 CDT 03/18 CPT-83791 Spec Collection and Handling Fee 10:45:40 C DT CPT-62025 Visit 10:45:40 CDT
--- OUTSIDE RECORDS SUMMARY | 2020-01-04 23:53 | XMS REPORT | Clinical Summary ---
Author Author Admin, Giuliana Flores Organization [facility] Address Unknown Phone Unavailable Allergies, Adverse Reactions, [...] use disorder NEED FOR PROPHYLACTIC VACCINATION WITH JTFSGDC-SWQVG-T UBELLA (MMR) VACCINE V06.4 Resolved Cintia Pagan APRN Need for prophylactic vaccination with wsaannj-gxqho-qbebzzm [MMR] vaccine Contraceptive management V25.9 Resolved Taiwo [...] gestation of V28.9 Inactive 2017 Nayeli Duke PHOTOSTATIC COPY MAKER Encounter for unspecified scre ening of mother Abnormal biochemical finding on screening 796.5 20 09/03/10 Active Estela Clifton AWNING CRAFTSPERSON Abnormal finding on antenata l screening Sinusitis, acute frontal 461.1 Active Rosalina Se berg PHOTOSTATIC COPY MAKER Acute frontal sinusitis GDM, diet controlled 648.80 Active Nayeli Duke PHOTOSTATIC COPY MAKER Abnormal glucose tolerance complicating , childbirth, or the puerperium, unspecified as to episode of care or not applicable 30 weeks gestation of V28.9 Inactive 2017 Nayeli Duke PHOTOSTATIC COPY MAKER Encounter for unspecified scre ening of mother 31 weeks gestation of V28.9 Active 2017 Dionne Stewart MD Encounter for unspecified scre ening of mother care, delayed ICD-V23.7 Inactive Kristin Pagan PHOTOSTATIC COPY MAKER NEED FOR PROPHYLACTIC VACCINATION WITH JRLFECG-XJKTT-X UBELLA (MMR) VACCINE ICD-V06.4 Inactive Cintia Pagan PHOTOSTATIC COPY MAKER Contraceptive management ICD-V25.9 Inactive Dionne Stewart MD [...] and rinse of after 10 minutes IVERMECTIN 71678809871 Active Estela Clifton LPN Active TRUE METRIX BLOOD GLUCOSE TEST IN VITRO STRIP Check bl ood sugars four times a day as directed for gestational DM; O24.420 GLUC OSE BLOOD 04449330336 Active Nayeli Duke APRN Active TRUE METRIX GO GLUCOSE METER W/DEVICE KIT Check blood sugars as directed BLOOD GLUCOSE MONITORING SUPPL 99782566380 Active Nayeli Duke APRN Active LANCETS Test blood sugars as directed for gestational DM O24. 420 LANCETS 16853016564 Active Nayeli Duke APRN Activ e AUGMENTIN 875-125 MG ORAL TABLET 1 po BID x 10 days 09/06/11 AMOXICILLIN-POT CLAVULANATE 10482558608 No Longer Active Rosalina Bland APRN Active FERROUS SULFATE 325 (65 FE) MG ORAL TABLET 1 tablet daily 5 FERROUS SULFATE 54047833477 Active Estela Clifton LPN Active LORATADINE 10 MG ORAL TABLET 1 tablet by mouth daily LORATADINE 40109464952 Active Dionne Stewart MD Active TYLENOL PM EXTRA STRENGTH 500-25 MG ORAL TABLET PRN 12/31 DIPHENHYDRAMINE-APAP (SLEEP) 09124563222 No Longer Active Dionne Stewart MD Active CONCEPT DHA 53.5-38-1 MG ORAL CAPSULE one tab PO daily TRUCYV-ASFJL-KAEQ-FA-OMEGA 3 63370386480 Active Dionne Stewart MD Active FLAGYL 500 MG ORAL TABLET 1 tablet PO BID for 7 days 2 METRONIDAZOLE 20850048068 No Longer Active Dionne Stewart MD Active EQL FORMULA 28-0.8 MG ORAL TABLET 1 tablet daily 1 VIT-FE FUMARATE-FA 62906957450 No Longer Active Dionne Stewart MD A ctive CONCEPT DHA 53.5-38-1 MG ORAL CAPSULE one tab PO daily ZJPLJW-VIYPM-QTXG-FA-OMEGA 3 69400194628 No Longer Active Dionne Stewart MD Active CYCLOBENZAPRINE HCL 10 MG ORAL TABLET 1 tablet by mout h three times daily as needed for muscle spasm/pain CYCLOBENZAPRINE HCL 80800842907 No Longer Active Dionne Stewart MD Active TRI-SPRINTEC 0.18/0.215/0.25 MG-35 MCG ORAL TABLET 1 po qd a s directed NORGESTIM-ETH ESTRAD TRIPHASIC 22533555318 N o Longer Active Dionne Stewart MD Active FLAGYL 250 MG ORAL TABLET One tablet three times a day METRONIDAZOLE 41184084569 No Longer Active Cintia Pagan APRN Active [facility] 28-0.8 MG ORAL TABLET 04/10 VIT-FE FUMARATE-FA 52700156243 No Longer Active Dionne Stewart MD Active CVS 28-0.8 MG ORAL TABLET 04/10 [facility] 28-0.8 MG ORAL TABLET VIT-FE FUMARATE-FA Inactive TRI-SPRINTEC 0.18/0.215/0.25 MG-35 MCG ORAL TABLET 1 po qd a s directed TRI-SPRINTEC 0.18/0.215/0.25 MG-35 MCG ORAL TABL ET 472888 NORGESTIM-ETH ESTRAD TRIPHASIC Inactive CYCLOBENZAPRINE HCL 10 MG ORAL TABLET 1 tablet by mout h three times daily as needed for muscle spasm/pain CYCLOBENZAP RINE HCL 10 MG ORAL TABLET 509243 CYCLOBENZAPRINE HCL Inactive CONCEPT DHA 53.5-38-1 MG ORAL CAPSULE one tab PO daily CONCEPT DHA 53.5-38-1 MG ORAL CAPSULE QFNWYQ-DLNWC-BHVH-FA-O BILLIE 3 Inactive FLAGYL 500 MG ORAL TABLET 1 tablet PO BID for 7 days 2 FLAGYL 500 MG ORAL TABLET 385466 METRONIDAZOLE Inactive TYLENOL PM EXTRA STRENGTH 500-25 MG ORAL TABLET PRN 12/31 TYLENOL PM EXTRA STRENGTH 500-25 MG ORAL TABLET 4313311 DIPHEN HYDRAMINE-APAP (SLEEP) Inactive FLAGYL 250 MG ORAL TABLET One tablet three times a day FLAGYL 250 MG ORAL TABLET 623139 METRONIDAZOLE Inactive AUGMENTIN 875-125 MG ORAL TABLET 1 po BID x 10 days 09/06/11 AUGMENTIN 875-125 MG ORAL TABLET 146094 AMOXICILLIN-POT CLAVULANATE Inactive Immunizations Vaccine Administration Date [...] pressure, diastolic, repeated by physician 74 BP miarmontes blood pressure, diastolic 74 mm[Hg] BP miramontes [...] 11 .0-15.0 platelet count 226 THOUSAND/UL 10*3/mm3 905-911 7026/05/11 mean platelet volume 10.3 fL 7.5-12.5 Lab [...] SCREEN, RBCW/REFL I , Drug Abuse Pnl 10-50/42527 - Blood bank antibody screen, serum NO ANTIBODIES DETECTED Lab Report: CBC, [id number] Gluc cari-1spec - Hematology hematocrit, blood 31.1 % 37.0-47.0 mean corpuscular volume, RBC 94 fL 80-97 mean corpuscular hemoglobin, RBC 31.9 pg 27. 0-31.2 hemoglobin, blood 10.5 g/dL 12.0-16.0 leukocyte count, blood 10.2 10^3/MM^3 10*3/mm3 4.6-10.2 mean corpuscular hemoglobin concentration, RBC 33.9 G/DL % 31.8-35.4 red blood cell distribution width 11.1 % 13 .0-18.0 platelet count 201 10^3/MM^3 10*3/mm3 337-573 4822/09/21 erythrocyte (RBC) count 3.30 10^6/MM^3 10*6/mm3 3.80-5.8 0 Lab Report: OBGTT3 - Chemistry blood glucose [...] N Encounters Code Encounter Date Provider Facility CPT-36577 Level 4 Est. Patient 15:39:57 CDT Nayeli herrera [facility] CPT-47658 Level 3 Est. Patient 17:26:51 CDT Rosalina berg [facility] CPT-42937 Level 3 Est. Patient 17:31:05 PRODUCTION SUPERINTENDENT Cintia sommer [facility] Procedures Code Procedure Name Date Entry Date Standard Desc ription CPT-78511 Visit 08:28:55 CDT CPT-56303 Addl Vx - Ix admin via ID IM or jet injects without counseling by physician 18:18:11 CDT CPT-95223 Boostrix Intramuscular Suspension 5-2.5-18.5 201 04/01/05 18:18:11 CDT CPT-32722 First Vx - Ix admin via ID I M or jet injects without counseling by physician 18:18:11 CDT CPT-49518 Flulaval Intramuscular Injectable 18:18:11 CDT CPT-16458 Fluzone Thim Free 36mo and older 11:16:54 C DT CPT-95692 Tdap 7yrs or > 11:16:53 CDT CPT-04322 Visit 11:16:53 CDT CPT-73311 Visit 11:14:16 CDT CPT-47840 Visit 10:54:00 CDT CPT-22914 Visit 16:24:31 CDT CPT-77522 Sono OB comp > 14 weeks - XRAY USE ONLY 12:01:14 CDT CPT-08674 Visit 15:58:08 CDT CPT-49456 Visit 12:16:56 CDT CPT-45863S Sono OB comp <14 weeks ([place] Only) - X RAY USE ONLY 12:09:02 CDT CPT-94068 Spec Collection and Handling Fee 10:11:50 C DT CPT-14596 Visit 10:11:49 CDT CPT-J1050 Depo Provera 150 mg (Medroxyprogesterone) 08/30 16:06:30 PRODUCTION SUPERINTENDENT CPT-76444 Abx/Therapy Injection 16:06:30 PRODUCTION SUPERINTENDENT CPT-J1050 Depo Provera 150 mg (Medroxyprogesterone) 08/30 15:39:17 PRODUCTION SUPERINTENDENT CPT-84263 Visit 15:01:38 CDT CPT-84856 Sono OB comp > 14 weeks 16:05:04 CDT 03/18 CPT-50989 Spec Collection and Handling Fee 10:45:40 C DT CPT-16737 Visit 10:45:40 CDT
--- OUTSIDE RECORDS SUMMARY | 2020-01-04 23:53 | XMS REPORT | Clinical Summary ---
Author Author Admin, Giuliana Flores Organization [facility] Address Unknown Phone Unavailable Allergies, Adverse Reactions, [...] use disorder NEED FOR PROPHYLACTIC VACCINATION WITH EIJXNZT-JLATA-G UBELLA (MMR) VACCINE V06.4 Resolved Cintia Pagan APRN Need for prophylactic vaccination with iqdxlfs-bpocn-icujtcp [MMR] vaccine Contraceptive management V25.9 Resolved Taiwo [...] gestation of V28.9 Inactive 2017 Nayeli Duke DONOR RELATIONS OFFICER Encounter for unspecified scre ening of mother Abnormal biochemical finding on screening 796.5 20 09/03/10 Active Estela Clifton HEMODIALYSIS CHARGE NURSE Abnormal finding on antenata l screening Sinusitis, acute frontal 461.1 Active Rosalina Se berg DONOR RELATIONS OFFICER Acute frontal sinusitis GDM, diet controlled 648.80 Active Nayeli Duke DONOR RELATIONS OFFICER Abnormal glucose tolerance complicating , childbirth, or the puerperium, unspecified as to episode of care or not applicable 30 weeks gestation of V28.9 Inactive 2017 Nayeli Duke DONOR RELATIONS OFFICER Encounter for unspecified scre ening of mother 31 weeks gestation of V28.9 Active 2017 Dionne Stewart MD Encounter for unspecified scre ening of mother care, delayed ICD-V23.7 Inactive Kristin Pagan DONOR RELATIONS OFFICER NEED FOR PROPHYLACTIC VACCINATION WITH BWQSTAF-EMDTP-Q UBELLA (MMR) VACCINE ICD-V06.4 Inactive Cintia Pagan DONOR RELATIONS OFFICER Contraceptive management ICD-V25.9 Inactive Dionne Stewart MD [...] and rinse of after 10 minutes IVERMECTIN 73199511201 Active Estela Clifton LPN Active TRUE METRIX BLOOD GLUCOSE TEST IN VITRO STRIP Check bl ood sugars four times a day as directed for gestational DM; O24.420 GLUC OSE BLOOD 91082072801 Active Nayeli Duke APRN Active TRUE METRIX GO GLUCOSE METER W/DEVICE KIT Check blood sugars as directed BLOOD GLUCOSE MONITORING SUPPL 85376086880 Active Nayeli Duke APRN Active LANCETS Test blood sugars as directed for gestational DM O24. 420 LANCETS 25514459626 Active Nayeli Duke APRN Activ e AUGMENTIN 875-125 MG ORAL TABLET 1 po BID x 10 days 09/06/11 AMOXICILLIN-POT CLAVULANATE 60181057033 No Longer Active Rosalina Bland APRN Active FERROUS SULFATE 325 (65 FE) MG ORAL TABLET 1 tablet daily 5 FERROUS SULFATE 94862880396 Active Estela Clifton LPN Active LORATADINE 10 MG ORAL TABLET 1 tablet by mouth daily LORATADINE 55177501220 Active Dionne Stewart MD Active TYLENOL PM EXTRA STRENGTH 500-25 MG ORAL TABLET PRN 12/31 DIPHENHYDRAMINE-APAP (SLEEP) 86835316346 No Longer Active Dionne Stewart MD Active CONCEPT DHA 53.5-38-1 MG ORAL CAPSULE one tab PO daily NWMISF-LMOSA-MTMN-FA-OMEGA 3 91537246079 Active Dionne Stewart MD Active FLAGYL 500 MG ORAL TABLET 1 tablet PO BID for 7 days 2 METRONIDAZOLE 57105424597 No Longer Active Dionne Stewart MD Active EQL FORMULA 28-0.8 MG ORAL TABLET 1 tablet daily 1 VIT-FE FUMARATE-FA 40175366538 No Longer Active Dionne Stewart MD A ctive CONCEPT DHA 53.5-38-1 MG ORAL CAPSULE one tab PO daily WMGZHF-SVNSU-PTOH-FA-OMEGA 3 96314997902 No Longer Active Dionne Stewart MD Active CYCLOBENZAPRINE HCL 10 MG ORAL TABLET 1 tablet by mout h three times daily as needed for muscle spasm/pain CYCLOBENZAPRINE HCL 57769545812 No Longer Active Dionne Stewart MD Active TRI-SPRINTEC 0.18/0.215/0.25 MG-35 MCG ORAL TABLET 1 po qd a s directed NORGESTIM-ETH ESTRAD TRIPHASIC 21274964448 N o Longer Active Dionne Stewart MD Active FLAGYL 250 MG ORAL TABLET One tablet three times a day METRONIDAZOLE 94875516445 No Longer Active Cintia Pagan APRN Active [facility] 28-0.8 MG ORAL TABLET 04/10 VIT-FE FUMARATE-FA 95805114651 No Longer Active Dionne Stewart MD Active [facility] 28-0.8 MG ORAL TABLET 04/10 [facility] 28-0.8 MG ORAL TABLET VIT-FE FUMARATE-FA Inactive TRI-SPRINTEC 0.18/0.215/0.25 MG-35 MCG ORAL TABLET 1 po qd a s directed TRI-SPRINTEC 0.18/0.215/0.25 MG-35 MCG ORAL TABL ET 364195 NORGESTIM-ETH ESTRAD TRIPHASIC Inactive CYCLOBENZAPRINE HCL 10 MG ORAL TABLET 1 tablet by mout h three times daily as needed for muscle spasm/pain CYCLOBENZAP RINE HCL 10 MG ORAL TABLET 630228 CYCLOBENZAPRINE HCL Inactive CONCEPT DHA 53.5-38-1 MG ORAL CAPSULE one tab PO daily CONCEPT DHA 53.5-38-1 MG ORAL CAPSULE GUODVW-SYUQM-XFTI-FA-O BILLIE 3 Inactive FLAGYL 500 MG ORAL TABLET 1 tablet PO BID for 7 days 2 FLAGYL 500 MG ORAL TABLET 283721 METRONIDAZOLE Inactive TYLENOL PM EXTRA STRENGTH 500-25 MG ORAL TABLET PRN 12/31 TYLENOL PM EXTRA STRENGTH 500-25 MG ORAL TABLET 0831465 DIPHEN HYDRAMINE-APAP (SLEEP) Inactive FLAGYL 250 MG ORAL TABLET One tablet three times a day FLAGYL 250 MG ORAL TABLET 012448 METRONIDAZOLE Inactive AUGMENTIN 875-125 MG ORAL TABLET 1 po BID x 10 days 09/06/11 AUGMENTIN 875-125 MG ORAL TABLET 653247 AMOXICILLIN-POT CLAVULANATE Inactive Immunizations Vaccine Administration Date [...] 11 .0-15.0 platelet count 226 THOUSAND/UL 10*3/mm3 803-039 7460/05/11 mean platelet volume 10.3 fL 7.5-12.5 Lab [...] SCREEN, RBCW/REFL I , Drug Abuse Pnl 10-50/71651 - Blood bank antibody screen, serum NO ANTIBODIES DETECTED Lab Report: CBC, [id number] Gluc cari-1spec - Hematology leukocyte count, blood [...] N Encounters Code Encounter Date Provider Facility CPT-05183 Level 4 Est. Patient 15:39:57 CDT Nayeli herrera [facility] CPT-90332 Level 3 Est. Patient 17:26:51 CDT Rosalina berg [facility] CPT-20891 Level 3 Est. Patient 17:31:05 RETAIL PLANNING MANAGER Cintia sommer [facility] Procedures Code Procedure Name Date Entry Date Standard Desc ription CPT-80542 Visit 08:28:55 CDT CPT-66626 Addl Vx - Ix admin via ID IM or jet injects without counseling by physician 18:18:11 CDT CPT-56909 Boostrix Intramuscular Suspension 5-2.5-18.5 201 04/01/05 18:18:11 CDT CPT-86140 First Vx - Ix admin via ID I M or jet injects without counseling by physician 18:18:11 CDT CPT-24622 Flulaval Intramuscular Injectable 18:18:11 CDT CPT-47454 Fluzone Thim Free 36mo and older 11:16:54 C DT CPT-78117 Tdap 7yrs or > 11:16:53 CDT CPT-32913 Visit 11:16:53 CDT CPT-09151 Visit 11:14:16 CDT CPT-09967 Visit 10:54:00 CDT CPT-95909 Visit 16:24:31 CDT CPT-47110 Sono OB comp > 14 weeks - XRAY USE ONLY 12:01:14 CDT CPT-19700 Visit 15:58:08 CDT CPT-72400 Visit 12:16:56 CDT CPT-09815A Sono OB comp <14 weeks ([place] Only) - X RAY USE ONLY 12:09:02 CDT CPT-18464 Spec Collection and Handling Fee 10:11:50 C DT CPT-09888 Visit 10:11:49 CDT CPT-J1050 Depo Provera 150 mg (Medroxyprogesterone) 08/30 16:06:30 RETAIL PLANNING MANAGER CPT-25441 Abx/Therapy Injection 16:06:30 RETAIL PLANNING MANAGER CPT-J1050 Depo Provera 150 mg (Medroxyprogesterone) 08/30 15:39:17 RETAIL PLANNING MANAGER CPT-50578 Visit 15:01:38 CDT CPT-01067 Sono OB comp > 14 weeks 16:05:04 CDT 03/18 CPT-58420 Spec Collection and Handling Fee 10:45:40 C DT CPT-37093 Visit 10:45:40 CDT
--- OUTSIDE RECORDS SUMMARY | 2020-01-04 23:54 | XMS REPORT | Clinical Summary ---
Author Author Admin, Giuliana Flores Organization [facility] Address Unknown Phone Unavailable Allergies, Adverse [...] use disorder NEED FOR PROPHYLACTIC VACCINATION WITH LAQWEOK-YHHMT-Y UBELLA (MMR) VACCINE V06.4 Resolved Cintia Pagan APRN Need for prophylactic vaccination with huersjc-fipwe-etgcqdz [MMR] vaccine Contraceptive management V25.9 Resolved Taiwo [...] gestation of V28.9 Inactive 2017 Nayeli Duke CHARGER OPERATOR HELPER Encounter for unspecified scre ening of mother Abnormal biochemical finding on screening 796.5 20 09/03/10 Active Estela Clifton MGMT SPECIALIST Abnormal finding on antenata l screening Sinusitis, acute frontal 461.1 Active Rosalina Se berg CHARGER OPERATOR HELPER Acute frontal sinusitis GDM, diet controlled 648.80 Active Nayeli Duke CHARGER OPERATOR HELPER Abnormal glucose tolerance complicating , childbirth, or the puerperium, unspecified as to episode of care or not applicable 30 weeks gestation of V28.9 Inactive 2017 Nayeli Duke CHARGER OPERATOR HELPER Encounter for unspecified scre ening of mother 31 weeks gestation of V28.9 Active 2017 Dionne Stewart MD Encounter for unspecified scre ening of mother care, delayed ICD-V23.7 Inactive Kristin Pagan CHARGER OPERATOR HELPER NEED FOR PROPHYLACTIC VACCINATION WITH SDSXWAK-JGWPB-G UBELLA (MMR) VACCINE ICD-V06.4 Inactive Cintia Pagan CHARGER OPERATOR HELPER Contraceptive management ICD-V25.9 Inactive Dionne Stewart MD follow-up, routine ICD-V24.2 Inacti ve Dionne Stewart MD Vaginal discharge ICD-623.5 Inactive Dionne spencer MD 29 weeks gestation of ICD-V28.9 Inac tive Nayeli Duke CHARGER OPERATOR HELPER Medication List Medication Instructions Start Date Stop Date Generic Name NDC Status Provider Patient Instruction TRUE METRIX BLOOD GLUCOSE TEST IN VITRO STRIP Check bl ood sugars four times a day as directed for gestational DM; O24.420 GLUC OSE BLOOD 95029680638 Active Nayeli Srikanth YONATHAN Active TRUE METRIX GO GLUCOSE METER W/DEVICE KIT Check blood sugars as directed BLOOD GLUCOSE MONITORING SUPPL 78471695990 Active Nayeli [place] YONATHAN Active LANCETS Test blood sugars as directed for gestational DM O24. 420 LANCETS 65883181432 Active Nayeli [place] YONATHAN Activ e AUGMENTIN 875-125 MG ORAL TABLET 1 po BID x 10 days 09/06/11 AMOXICILLIN-POT CLAVULANATE 39630169360 No Longer Active Rosalina Bland CHARGER OPERATOR HELPER Active FERROUS SULFATE 325 (65 FE) MG ORAL TABLET 1 tablet daily 5 FERROUS SULFATE 53522243567 Active Estela Clifton LPN Active LORATADINE 10 MG ORAL TABLET 1 tablet by mouth daily LORATADINE 81869989502 Active Dionne Stewart MD Active TYLENOL PM EXTRA STRENGTH 500-25 MG ORAL TABLET PRN 12/31 DIPHENHYDRAMINE-APAP (SLEEP) 35208093716 No Longer Active Dionne Stewart MD Active CONCEPT DHA 53.5-38-1 MG ORAL CAPSULE one tab PO daily GNBTVE-OTIOE-HGHA-FA-OMEGA 3 53641593769 Active Dionne Stewart MD Active FLAGYL 500 MG ORAL TABLET 1 tablet PO BID for 7 days 2 METRONIDAZOLE 80343878121 No Longer Active Dionne Stewart MD Active EQL FORMULA 28-0.8 MG ORAL TABLET 1 tablet daily 1 VIT-FE FUMARATE-FA 93219199082 No Longer Active Dionne Stewart MD A ctive CONCEPT DHA 53.5-38-1 MG ORAL CAPSULE one tab PO daily GCOQCM-ZLJIO-ROLN-FA-OMEGA 3 11175424864 No Longer Active Dionne Stewart MD Active CYCLOBENZAPRINE HCL 10 MG ORAL TABLET 1 tablet by mout h three times daily as needed for muscle spasm/pain CYCLOBENZAPRINE HCL 90170081702 No Longer Active Dionne Stewart MD Active TRI-SPRINTEC 0.18/0.215/0.25 MG-35 MCG ORAL TABLET 1 po qd a s directed NORGESTIM-ETH ESTRAD TRIPHASIC 08904261417 N o Longer Active Dionne Stewart MD Active FLAGYL 250 MG ORAL TABLET One tablet three times a day METRONIDAZOLE 08530750459 No Longer Active Cintia Pagan APRN Active [facility] 28-0.8 MG ORAL TABLET 04/10 VIT-FE FUMARATE-FA 77906961459 No Longer Active Dionne Stewart MD Active [facility]S 28-0.8 MG ORAL TABLET 04/10 CVS 28-0.8 MG ORAL TABLET VIT-FE FUMARATE-FA Inactive TRI-SPRINTEC 0.18/0.215/0.25 MG-35 MCG ORAL TABLET 1 po qd a s directed TRI-SPRINTEC 0.18/0.215/0.25 MG-35 MCG ORAL TABL ET 214834 NORGESTIM-ETH ESTRAD TRIPHASIC Inactive CYCLOBENZAPRINE HCL 10 MG ORAL TABLET 1 tablet by mout h three times daily as needed for muscle spasm/pain CYCLOBENZAP RINE HCL 10 MG ORAL TABLET 175876 CYCLOBENZAPRINE HCL Inactive CONCEPT DHA 53.5-38-1 MG ORAL CAPSULE one tab PO daily CONCEPT DHA 53.5-38-1 MG ORAL CAPSULE NMTOXN-BPRLN-GEAB-FA-O BILLIE 3 Inactive FLAGYL 500 MG ORAL TABLET 1 tablet PO BID for 7 days 2 FLAGYL 500 MG ORAL TABLET 114581 METRONIDAZOLE Inactive TYLENOL PM EXTRA STRENGTH 500-25 MG ORAL TABLET PRN 12/31 TYLENOL PM EXTRA STRENGTH 500-25 MG ORAL TABLET 2946514 DIPHEN HYDRAMINE-APAP (SLEEP) Inactive FLAGYL 250 MG ORAL TABLET One tablet three times a day FLAGYL 250 MG ORAL TABLET 934751 METRONIDAZOLE Inactive AUGMENTIN 875-125 MG ORAL TABLET 1 po BID x 10 days 09/06/11 AUGMENTIN 875-125 MG ORAL TABLET 931008 AMOXICILLIN-POT CLAVULANATE Inactive Immunizations Vaccine Administration Date [...] 11 .0-15.0 platelet count 226 THOUSAND/UL 10*3/mm3 938-944 0042/05/11 mean platelet volume 10.3 fL 7.5-12.5 Lab [...] SCREEN, RBCW/REFL I , Drug Abuse Pnl 10-50/38778 - Blood bank antibody screen, serum NO ANTIBODIES DETECTED Lab Report: CBC, [id number] Gluc cari-1spec - Hematology leukocyte count, blood [...] N Encounters Code Encounter Date Provider Facility CPT-22030 Level 4 Est. Patient 15:39:57 CDT Nayeli herrera [facility] CPT-23363 Level 3 Est. Patient 17:26:51 CDT Rosalina berg [facility] CPT-80988 Level 3 Est. Patient 17:31:05 OPTOMETRIC ASSISTANT Cintia Al kemal CHARGER OPERATOR HELPER [facility] Procedures Code Procedure Name Date Entry Date Standard Desc ription CPT-23961 Visit 08:28:55 CDT CPT-05913 Addl Vx - Ix admin via ID IM or jet injects without counseling by physician 18:18:11 CDT CPT-15717 Boostrix Intramuscular Suspension 5-2.5-18.5 201 04/01/05 18:18:11 CDT CPT-70015 First Vx - Ix admin via ID I M or jet injects without counseling by physician 18:18:11 CDT CPT-19092 Flulaval Intramuscular Injectable 18:18:11 CDT CPT-59297 Fluzone Thim Free 36mo and older 11:16:54 C DT CPT-60851 Tdap 7yrs or > 11:16:53 CDT CPT-86136 Visit 11:16:53 CDT CPT-86401 Visit 11:14:16 CDT CPT-94414 Visit 10:54:00 CDT CPT-98263 Visit 16:24:31 CDT CPT-34150 Sono OB comp > 14 weeks - XRAY USE ONLY 12:01:14 CDT CPT-37489 Visit 15:58:08 CDT CPT-21455 Visit 12:16:56 CDT CPT-18760P Sono OB comp <14 weeks ([place] Only) - X RAY USE ONLY 12:09:02 CDT CPT-60258 Spec Collection and Handling Fee 10:11:50 C DT CPT-20720 Visit 10:11:49 CDT CPT-J1050 Depo Provera 150 mg (Medroxyprogesterone) 08/30 16:06:30 OPTOMETRIC ASSISTANT CPT-75350 Abx/Therapy Injection 16:06:30 OPTOMETRIC ASSISTANT CPT-J1050 Depo Provera 150 mg (Medroxyprogesterone) 08/30 15:39:17 OPTOMETRIC ASSISTANT CPT-19055 Visit 15:01:38 CDT CPT-15663 Sono OB comp > 14 weeks 16:05:04 CDT 03/18 CPT-55700 Spec Collection and Handling Fee 10:45:40 C DT CPT-46888 Visit 10:45:40 CDT
--- OUTSIDE RECORDS SUMMARY | 2020-01-04 23:54 | XMS REPORT | Clinical Summary ---
Author Author Admin, Giuliana Flores Organization [facility] Address Unknown Phone Unavailable Allergies, Adverse Reactions, [...] use disorder NEED FOR PROPHYLACTIC VACCINATION WITH NNZZIOK-VNZFT-Z UBELLA (MMR) VACCINE V06.4 Resolved Cintia Pagan APRN Need for prophylactic vaccination with csuoydr-zzmtt-fmzmyxl [MMR] vaccine Contraceptive management V25.9 Resolved Taiwo [...] gestation of V28.9 Inactive 2017 Nayeli Duke GARDEN CENTER MANAGER Encounter for unspecified scre ening of mother Abnormal biochemical finding on screening 796.5 20 09/03/10 Active Estela Clifton HOUSECLEANER Abnormal finding on antenata l screening Sinusitis, acute frontal 461.1 Active Rosalina Se berg GARDEN CENTER MANAGER Acute frontal sinusitis GDM, diet controlled 648.80 Active Nayeli Duke GARDEN CENTER MANAGER Abnormal glucose tolerance complicating , childbirth, or the puerperium, unspecified as to episode of care or not applicable 30 weeks gestation of V28.9 Inactive 2017 Nayeli Duke GARDEN CENTER MANAGER Encounter for unspecified scre ening of mother 31 weeks gestation of V28.9 Active 2017 Dionne Stewart MD Encounter for unspecified scre ening of mother care, delayed ICD-V23.7 Inactive Kristin Pagan GARDEN CENTER MANAGER NEED FOR PROPHYLACTIC VACCINATION WITH FDQMBAD-ELDMM-L UBELLA (MMR) VACCINE ICD-V06.4 Inactive Cintia Pagan GARDEN CENTER MANAGER Contraceptive management ICD-V25.9 Inactive Dionne Stewart MD [...] and rinse of after 10 minutes IVERMECTIN 39123894280 Active Estela Clifton LPN Active TRUE METRIX BLOOD GLUCOSE TEST IN VITRO STRIP Check bl ood sugars four times a day as directed for gestational DM; O24.420 GLUC OSE BLOOD 92584413616 Active Nayeli Duke APRN Active TRUE METRIX GO GLUCOSE METER W/DEVICE KIT Check blood sugars as directed BLOOD GLUCOSE MONITORING SUPPL 45564578551 Active Nayeli Duke APRN Active LANCETS Test blood sugars as directed for gestational DM O24. 420 LANCETS 59958226706 Active Nayeli Duke APRN Activ e AUGMENTIN 875-125 MG ORAL TABLET 1 po BID x 10 days 09/06/11 AMOXICILLIN-POT CLAVULANATE 25215261563 No Longer Active Rosalina Bland APRN Active FERROUS SULFATE 325 (65 FE) MG ORAL TABLET 1 tablet daily 5 FERROUS SULFATE 92092975829 Active Estela Clifton LPN Active LORATADINE 10 MG ORAL TABLET 1 tablet by mouth daily LORATADINE 42404713069 Active Dionne Stewart MD Active TYLENOL PM EXTRA STRENGTH 500-25 MG ORAL TABLET PRN 12/31 DIPHENHYDRAMINE-APAP (SLEEP) 59139790311 No Longer Active Dionne Stewart MD Active CONCEPT DHA 53.5-38-1 MG ORAL CAPSULE one tab PO daily QSHMOO-FAAJY-AXEY-FA-OMEGA 3 98438046904 Active Dionne Stewart MD Active FLAGYL 500 MG ORAL TABLET 1 tablet PO BID for 7 days 2 METRONIDAZOLE 11499510099 No Longer Active Dionne Stewart MD Active EQL FORMULA 28-0.8 MG ORAL TABLET 1 tablet daily 1 VIT-FE FUMARATE-FA 86333568703 No Longer Active Dionne Stewart MD A ctive CONCEPT DHA 53.5-38-1 MG ORAL CAPSULE one tab PO daily FTXTAB-CPNYP-PSXL-FA-OMEGA 3 89826503580 No Longer Active Dionne Stewart MD Active CYCLOBENZAPRINE HCL 10 MG ORAL TABLET 1 tablet by mout h three times daily as needed for muscle spasm/pain CYCLOBENZAPRINE HCL 09771956207 No Longer Active Dionne Stewart MD Active TRI-SPRINTEC 0.18/0.215/0.25 MG-35 MCG ORAL TABLET 1 po qd a s directed NORGESTIM-ETH ESTRAD TRIPHASIC 38325996609 N o Longer Active Dionne Stewart MD Active FLAGYL 250 MG ORAL TABLET One tablet three times a day METRONIDAZOLE 36957930387 No Longer Active Cintia Pagan APRN Active [facility] 28-0.8 MG ORAL TABLET 04/10 VIT-FE FUMARATE-FA 52380774457 No Longer Active Dionne Stewart MD Active [facility] 28-0.8 MG ORAL TABLET 04/10 [facility] 28-0.8 MG ORAL TABLET VIT-FE FUMARATE-FA Inactive TRI-SPRINTEC 0.18/0.215/0.25 MG-35 MCG ORAL TABLET 1 po qd a s directed TRI-SPRINTEC 0.18/0.215/0.25 MG-35 MCG ORAL TABL ET 281552 NORGESTIM-ETH ESTRAD TRIPHASIC Inactive CYCLOBENZAPRINE HCL 10 MG ORAL TABLET 1 tablet by mout h three times daily as needed for muscle spasm/pain CYCLOBENZAP RINE HCL 10 MG ORAL TABLET 033541 CYCLOBENZAPRINE HCL Inactive CONCEPT DHA 53.5-38-1 MG ORAL CAPSULE one tab PO daily CONCEPT DHA 53.5-38-1 MG ORAL CAPSULE JWZOCP-ZNFWM-SBGT-FA-O BILLIE 3 Inactive FLAGYL 500 MG ORAL TABLET 1 tablet PO BID for 7 days 2 FLAGYL 500 MG ORAL TABLET 912464 METRONIDAZOLE Inactive TYLENOL PM EXTRA STRENGTH 500-25 MG ORAL TABLET PRN 12/31 TYLENOL PM EXTRA STRENGTH 500-25 MG ORAL TABLET 9495238 DIPHEN HYDRAMINE-APAP (SLEEP) Inactive FLAGYL 250 MG ORAL TABLET One tablet three times a day FLAGYL 250 MG ORAL TABLET 662323 METRONIDAZOLE Inactive AUGMENTIN 875-125 MG ORAL TABLET 1 po BID x 10 days 09/06/11 AUGMENTIN 875-125 MG ORAL TABLET 100064 AMOXICILLIN-POT CLAVULANATE Inactive Immunizations Vaccine Administration Date [...] 11 .0-15.0 platelet count 226 THOUSAND/UL 10*3/mm3 446-408 0513/05/11 mean platelet volume 10.3 fL 7.5-12.5 Lab [...] SCREEN, RBCW/REFL I , Drug Abuse Pnl 10-50/61889 - Blood bank antibody screen, serum NO ANTIBODIES DETECTED Lab Report: CBC, [id number] Gluc cari-1spec - Hematology leukocyte count, blood [...] N Encounters Code Encounter Date Provider Facility CPT-07685 Level 4 Est. Patient 15:39:57 CDT Nayeli herrera [facility] CPT-48422 Level 3 Est. Patient 17:26:51 CDT Rosalina Se ll [facility] CPT-77734 Level 3 Est. Patient 17:31:05 SOLE ROUGHER Cintia sommer [facility] Procedures Code Procedure Name Date Entry Date Standard Desc ription CPT-54550 Visit 08:28:55 CDT CPT-32806 Addl Vx - Ix admin via ID IM or jet injects without counseling by physician 18:18:11 CDT CPT-32961 Boostrix Intramuscular Suspension 5-2.5-18.5 201 04/01/05 18:18:11 CDT CPT-41662 First Vx - Ix admin via ID I M or jet injects without counseling by physician 18:18:11 CDT CPT-98969 Flulaval Intramuscular Injectable 18:18:11 CDT CPT-14628 Fluzone Thim Free 36mo and older 11:16:54 C DT CPT-53194 Tdap 7yrs or > 11:16:53 CDT CPT-26140 Visit 11:16:53 CDT CPT-69078 Visit 11:14:16 CDT CPT-98552 Visit 10:54:00 CDT CPT-83631 Visit 16:24:31 CDT CPT-94133 Sono OB comp > 14 weeks - XRAY USE ONLY 12:01:14 CDT CPT-66250 Visit 15:58:08 CDT CPT-35815 Visit 12:16:56 CDT CPT-02511U Sono OB comp <14 weeks ([place] Only) - X RAY USE ONLY 12:09:02 CDT CPT-58324 Spec Collection and Handling Fee 10:11:50 C DT CPT-76976 Visit 10:11:49 CDT CPT-J1050 Depo Provera 150 mg (Medroxyprogesterone) 08/30 16:06:30 SOLE ROUGHER CPT-97473 Abx/Therapy Injection 16:06:30 SOLE ROUGHER CPT-J1050 Depo Provera 150 mg (Medroxyprogesterone) 08/30 15:39:17 SOLE ROUGHER CPT-75783 Visit 15:01:38 CDT CPT-54405 Sono OB comp > 14 weeks 16:05:04 CDT 03/18 CPT-27878 Spec Collection and Handling Fee 10:45:40 C DT CPT-75867 Visit 10:45:40 CDT
--- OUTSIDE RECORDS SUMMARY | 2020-01-04 23:54 | XMS REPORT | Clinical Summary ---
Author Author Admin, Giuliana Flores Organization [facility] Address Unknown Phone Unavailable Allergies, Adverse Reactions, [...] care Drug abuse, hx of V15.89 Active iDonne Stewart MD Other specified personal history presenting hazards to health Tobacco abuse, gestational 305.1 Active Nilda Stewart MD Tobacco use disorder NEED FOR PROPHYLACTIC VACCINATION WITH YVHGBXI-FJCDN-P UBELLA (MMR) VACCINE V06.4 Resolved Cintia Pagan APRN Need for prophylactic vaccination with edkgtad-jxiat-abwgfhl [MMR] vaccine Contraceptive management V25.9 Resolved Taiwo [...] gestation of V28.9 Inactive 2017 Nayeli Duke FORKLIFT DRIVER Encounter for unspecified scre ening of mother Abnormal biochemical finding on screening 796.5 20 09/03/10 Active Estela Clifton UNIFORM MAKER Abnormal finding on antenata l screening Sinusitis, acute frontal 461.1 Active Rosalina Se berg FORKLIFT DRIVER Acute frontal sinusitis GDM, diet controlled 648.80 Active Nayeli Duke FORKLIFT DRIVER Abnormal glucose tolerance complicating , childbirth, or the puerperium, unspecified as to episode of care or not applicable 30 weeks gestation of V28.9 Inactive 2017 Nayeli Duke FORKLIFT DRIVER Encounter for unspecified scre ening of mother 31 weeks gestation of V28.9 Active 2017 Dionne Stewart MD Encounter for unspecified scre ening of mother care, delayed ICD-V23.7 Inactive Kristin Pagan FORKLIFT DRIVER NEED FOR PROPHYLACTIC VACCINATION WITH BHEZGTP-MYNFH-I UBELLA (MMR) VACCINE ICD-V06.4 Inactive Cintia Pagan FORKLIFT DRIVER Contraceptive management ICD-V25.9 Inactive Dionne Stewart MD follow-up, routine ICD-V24.2 Inacti ve Dionne Stewart MD Vaginal discharge ICD-623.5 Inactive Dionne spnecer MD 29 weeks gestation of ICD-V28.9 Inac tive Nayeli Duke FORKLIFT DRIVER Medication List Medication Instructions Start Date Stop Date Generic Name NDC Status Provider Patient Instruction TRUE METRIX BLOOD GLUCOSE TEST IN VITRO STRIP Check bl ood sugars four times a day as directed for gestational DM; O24.420 GLUC OSE BLOOD 23860524411 Active Nayeli Kenosha FORKLIFT DRIVER Active TRUE METRIX GO GLUCOSE METER W/DEVICE KIT Check blood sugars as directed BLOOD GLUCOSE MONITORING SUPPL 44933436846 Active Nayeli Ken[place]ha YONATHAN Active LANCETS Test blood sugars as directed for gestational DM O24. 420 LANCETS 14637269668 Active Nayeli Ken[place]ha FORKLIFT DRIVER Activ e AUGMENTIN 875-125 MG ORAL TABLET 1 po BID x 10 days 09/06/11 AMOXICILLIN-POT CLAVULANATE 05526814090 No Longer Active Rosalina Bland FORKLIFT DRIVER Active FERROUS SULFATE 325 (65 FE) MG ORAL TABLET 1 tablet daily 5 FERROUS SULFATE 01259832419 Active Estela Clifton LPN Active LORATADINE 10 MG ORAL TABLET 1 tablet by mouth daily LORATADINE 05174757435 Active Dionne Stewart MD Active TYLENOL PM EXTRA STRENGTH 500-25 MG ORAL TABLET PRN 12/31 DIPHENHYDRAMINE-APAP (SLEEP) 87841285848 No Longer Active Dionne Stewart MD Active CONCEPT DHA 53.5-38-1 MG ORAL CAPSULE one tab PO daily SMYRLH-BTSGQ-ZVOM-FA-OMEGA 3 83311950468 Active Dionne Stewart MD Active FLAGYL 500 MG ORAL TABLET 1 tablet PO BID for 7 days 2 METRONIDAZOLE 48848864383 No Longer Active Dionne Stewart MD Active EQL FORMULA 28-0.8 MG ORAL TABLET 1 tablet daily 1 VIT-FE FUMARATE-FA 30347841183 No Longer Active Dionne Stewart MD A ctive CONCEPT DHA 53.5-38-1 MG ORAL CAPSULE one tab PO daily XWRVLL-PCRPJ-TMFF-FA-OMEGA 3 83365722536 No Longer Active Dionne Stewart MD Active CYCLOBENZAPRINE HCL 10 MG ORAL TABLET 1 tablet by mout h three times daily as needed for muscle spasm/pain CYCLOBENZAPRINE HCL 11236749139 No Longer Active Dionne Stewart MD Active TRI-SPRINTEC 0.18/0.215/0.25 MG-35 MCG ORAL TABLET 1 po qd a s directed NORGESTIM-ETH ESTRAD TRIPHASIC 73618364894 N o Longer Active Dionne Stewart MD Active FLAGYL 250 MG ORAL TABLET One tablet three times a day METRONIDAZOLE 67004093054 No Longer Active Cintia Pagan APRN Active [facility] 28-0.8 MG ORAL TABLET 04/10 VIT-FE FUMARATE-FA 53678243612 No Longer Active Dionne Stewart MD Active [facility] 28-0.8 MG ORAL TABLET 04/10 [facility] 28-0.8 MG ORAL TABLET VIT-FE FUMARATE-FA Inactive TRI-SPRINTEC 0.18/0.215/0.25 MG-35 MCG ORAL TABLET 1 po qd a s directed TRI-SPRINTEC 0.18/0.215/0.25 MG-35 MCG ORAL TABL ET 387814 NORGESTIM-ETH ESTRAD TRIPHASIC Inactive CYCLOBENZAPRINE HCL 10 MG ORAL TABLET 1 tablet by mout h three times daily as needed for muscle spasm/pain CYCLOBENZAP RINE HCL 10 MG ORAL TABLET 342078 CYCLOBENZAPRINE HCL Inactive CONCEPT DHA 53.5-38-1 MG ORAL CAPSULE one tab PO daily CONCEPT DHA 53.5-38-1 MG ORAL CAPSULE LAWDEQ-EMWFA-WHTB-FA-O BILLIE 3 Inactive FLAGYL 500 MG ORAL TABLET 1 tablet PO BID for 7 days 2 FLAGYL 500 MG ORAL TABLET 198632 METRONIDAZOLE Inactive TYLENOL PM EXTRA STRENGTH 500-25 MG ORAL TABLET PRN 12/31 TYLENOL PM EXTRA STRENGTH 500-25 MG ORAL TABLET 8324693 DIPHEN HYDRAMINE-APAP (SLEEP) Inactive FLAGYL 250 MG ORAL TABLET One tablet three times a day FLAGYL 250 MG ORAL TABLET 621662 METRONIDAZOLE Inactive AUGMENTIN 875-125 MG ORAL TABLET 1 po BID x 10 days 09/06/11 AUGMENTIN 875-125 MG ORAL TABLET 516945 AMOXICILLIN-POT CLAVULANATE Inactive Immunizations Vaccine Administration Date [...] 11 .0-15.0 platelet count 226 THOUSAND/UL 10*3/mm3 870-670 2549/05/11 mean platelet volume 10.3 fL 7.5-12.5 Lab [...] SCREEN, RBCW/REFL I , Drug Abuse Pnl 10-50/67433 - Blood bank antibody screen, serum NO ANTIBODIES DETECTED Lab Report: CBC, [id number] Gluc cari-1spec - Hematology leukocyte count, blood [...] N Encounters Code Encounter Date Provider Facility CPT-54983 Level 4 Est. Patient 15:39:57 CDT Nayeli herrera [facility] CPT-49858 Level 3 Est. Patient 17:26:51 CDT Rosalina berg [facility] CPT-34398 Level 3 Est. Patient 17:31:05 SENIOR AGRICULTURAL ASSISTANT Cintia Al kemal [facility] Procedures Code Procedure Name Date Entry Date Standard Desc ription CPT-28770 Visit 08:28:55 CDT CPT-87186 Addl Vx - Ix admin via ID IM or jet injects without counseling by physician 18:18:11 CDT CPT-56223 Boostrix Intramuscular Suspension 5-2.5-18.5 201 04/01/05 18:18:11 CDT CPT-32480 First Vx - Ix admin via ID I M or jet injects without counseling by physician 18:18:11 CDT CPT-79383 Flulaval Intramuscular Injectable 18:18:11 CDT CPT-76986 Fluzone Thim Free 36mo and older 11:16:54 C DT CPT-88688 Tdap 7yrs or > 11:16:53 CDT CPT-98414 Visit 11:16:53 CDT CPT-61888 Visit 11:14:16 CDT CPT-02757 Visit 10:54:00 CDT CPT-72553 Visit 16:24:31 CDT CPT-50948 Sono OB comp > 14 weeks - XRAY USE ONLY 12:01:14 CDT CPT-35129 Visit 15:58:08 CDT CPT-45924 Visit 12:16:56 CDT CPT-35811S Sono OB comp <14 weeks ([place] Only) - X RAY USE ONLY 12:09:02 CDT CPT-74313 Spec Collection and Handling Fee 10:11:50 C DT CPT-56014 Visit 10:11:49 CDT CPT-J1050 Depo Provera 150 mg (Medroxyprogesterone) 08/30 16:06:30 SENIOR AGRICULTURAL ASSISTANT CPT-35776 Abx/Therapy Injection 16:06:30 SENIOR AGRICULTURAL ASSISTANT CPT-J1050 Depo Provera 150 mg (Medroxyprogesterone) 08/30 15:39:17 SENIOR AGRICULTURAL ASSISTANT CPT-43209 Visit 15:01:38 CDT CPT-73973 Sono OB comp > 14 weeks 16:05:04 CDT 03/18 CPT-07617 Spec Collection and Handling Fee 10:45:40 C DT CPT-58588 Visit 10:45:40 CDT
--- OUTSIDE RECORDS SUMMARY | 2020-01-04 23:54 | XMS REPORT | Clinical Summary ---
Author Author Admin, Giuliana Flores Organization [facility] Address Unknown Phone Unavailable Allergies, [...] use disorder NEED FOR PROPHYLACTIC VACCINATION WITH ROONLVS-UKXLR-M UBELLA (MMR) VACCINE V06.4 Resolved Cintia Pagan APRN Need for prophylactic vaccination with bcrbanp-uuqqs-rskpveq [MMR] vaccine Contraceptive management V25.9 Resolved Taiwo [...] gestation of V28.9 Inactive 2017 Nayeli Duke BATCH TRUCKER Encounter for unspecified scre ening of mother Abnormal biochemical finding on screening 796.5 20 09/03/10 Active Estela Clifton DAIRY FARM OPERATOR Abnormal finding on antenata l screening Sinusitis, acute frontal 461.1 Active Rosalina Se berg BATCH TRUCKER Acute frontal sinusitis GDM, diet controlled 648.80 Active Nayeli Duke BATCH TRUCKER Abnormal glucose tolerance complicating , childbirth, or the puerperium, unspecified as to episode of care or not applicable 30 weeks gestation of V28.9 Inactive 2017 Nayeli Duke BATCH TRUCKER Encounter for unspecified scre ening of mother 31 weeks gestation of V28.9 Active 2017 Dionne Stewart MD Encounter for unspecified scre ening of mother care, delayed ICD-V23.7 Inactive Kristin Pagan BATCH TRUCKER NEED FOR PROPHYLACTIC VACCINATION WITH PTDTWJP-RBDPU-T UBELLA (MMR) VACCINE ICD-V06.4 Inactive Cintia Pagan BATCH TRUCKER Contraceptive management ICD-V25.9 Inactive Dionne Stewart MD [...] and rinse of after 10 minutes IVERMECTIN 19505873978 Active Estela Clfiton LPN Active TRUE METRIX BLOOD GLUCOSE TEST IN VITRO STRIP Check bl ood sugars four times a day as directed for gestational DM; O24.420 GLUC OSE BLOOD 82475270814 Active Nayeli Duke APRN Active TRUE METRIX GO GLUCOSE METER W/DEVICE KIT Check blood sugars as directed BLOOD GLUCOSE MONITORING SUPPL 32738448129 Active Nayeli Duke APRN Active LANCETS Test blood sugars as directed for gestational DM O24. 420 LANCETS 93515782637 Active Nayeli Duke APRN Activ e AUGMENTIN 875-125 MG ORAL TABLET 1 po BID x 10 days 09/06/11 AMOXICILLIN-POT CLAVULANATE 82330418805 No Longer Active Rosalina Bland APRN Active FERROUS SULFATE 325 (65 FE) MG ORAL TABLET 1 tablet daily 5 FERROUS SULFATE 04005574647 Active Estela Clifton LPN Active LORATADINE 10 MG ORAL TABLET 1 tablet by mouth daily LORATADINE 06401306599 Active Dionne Stewart MD Active TYLENOL PM EXTRA STRENGTH 500-25 MG ORAL TABLET PRN 12/31 DIPHENHYDRAMINE-APAP (SLEEP) 07986391558 No Longer Active Dionne Stewart MD Active CONCEPT DHA 53.5-38-1 MG ORAL CAPSULE one tab PO daily RLSNYH-QAJXS-FPPT-FA-OMEGA 3 51596381317 Active Dionne Stewart MD Active FLAGYL 500 MG ORAL TABLET 1 tablet PO BID for 7 days 2 METRONIDAZOLE 27581827811 No Longer Active Dionne Stewart MD Active EQL FORMULA 28-0.8 MG ORAL TABLET 1 tablet daily 1 VIT-FE FUMARATE-FA 35398419229 No Longer Active Dionne Stewart MD A ctive CONCEPT DHA 53.5-38-1 MG ORAL CAPSULE one tab PO daily DJEIKS-KEKIY-EPKF-FA-OMEGA 3 34102336853 No Longer Active Dionne Stewart MD Active CYCLOBENZAPRINE HCL 10 MG ORAL TABLET 1 tablet by mout h three times daily as needed for muscle spasm/pain CYCLOBENZAPRINE HCL 47923821906 No Longer Active Dionne Stewart MD Active TRI-SPRINTEC 0.18/0.215/0.25 MG-35 MCG ORAL TABLET 1 po qd a s directed NORGESTIM-ETH ESTRAD TRIPHASIC 03523171897 N o Longer Active Dionne Stewart MD Active FLAGYL 250 MG ORAL TABLET One tablet three times a day METRONIDAZOLE 87305189171 No Longer Active Cintia Pagan APRN Active [facility] 28-0.8 MG ORAL TABLET 04/10 VIT-FE FUMARATE-FA 68606270589 No Longer Active Dionne Stewart MD Active [facility] 28-0.8 MG ORAL TABLET 04/10 [facility] 28-0.8 MG ORAL TABLET VIT-FE FUMARATE-FA Inactive TRI-SPRINTEC 0.18/0.215/0.25 MG-35 MCG ORAL TABLET 1 po qd a s directed TRI-SPRINTEC 0.18/0.215/0.25 MG-35 MCG ORAL TABL ET 943521 NORGESTIM-ETH ESTRAD TRIPHASIC Inactive CYCLOBENZAPRINE HCL 10 MG ORAL TABLET 1 tablet by mout h three times daily as needed for muscle spasm/pain CYCLOBENZAP RINE HCL 10 MG ORAL TABLET 057645 CYCLOBENZAPRINE HCL Inactive CONCEPT DHA 53.5-38-1 MG ORAL CAPSULE one tab PO daily CONCEPT DHA 53.5-38-1 MG ORAL CAPSULE SDCKNW-YOQOS-GNGO-FA-O BILLIE 3 Inactive FLAGYL 500 MG ORAL TABLET 1 tablet PO BID for 7 days 2 FLAGYL 500 MG ORAL TABLET 389794 METRONIDAZOLE Inactive TYLENOL PM EXTRA STRENGTH 500-25 MG ORAL TABLET PRN 12/31 TYLENOL PM EXTRA STRENGTH 500-25 MG ORAL TABLET 2573567 DIPHEN HYDRAMINE-APAP (SLEEP) Inactive FLAGYL 250 MG ORAL TABLET One tablet three times a day FLAGYL 250 MG ORAL TABLET 806363 METRONIDAZOLE Inactive AUGMENTIN 875-125 MG ORAL TABLET 1 po BID x 10 days 09/06/11 AUGMENTIN 875-125 MG ORAL TABLET 065928 AMOXICILLIN-POT CLAVULANATE Inactive Immunizations Vaccine Administration Date [...] 11 .0-15.0 platelet count 226 THOUSAND/UL 10*3/mm3 804-756 3691/05/11 mean platelet volume 10.3 fL 7.5-12.5 Lab [...] SCREEN, RBCW/REFL I , Drug Abuse Pnl 10-50/25209 - Blood bank antibody screen, serum NO ANTIBODIES DETECTED Lab Report: CBC, [id number] Gluc cari-1spec - Hematology leukocyte count, blood [...] N Encounters Code Encounter Date Provider Facility CPT-69902 Level 4 Est. Patient 15:39:57 CDT Nayeli herrera [facility] CPT-76004 Level 3 Est. Patient 17:26:51 CDT Rosalina Se ll [facility] CPT-86943 Level 3 Est. Patient 17:31:05 FARM BUTCHER Cintia sommer [facility] Procedures Code Procedure Name Date Entry Date Standard Desc ription CPT-75460 Visit 08:28:55 CDT CPT-60536 Addl Vx - Ix admin via ID IM or jet injects without counseling by physician 18:18:11 CDT CPT-82334 Boostrix Intramuscular Suspension 5-2.5-18.5 201 04/01/05 18:18:11 CDT CPT-57469 First Vx - Ix admin via ID I M or jet injects without counseling by physician 18:18:11 CDT CPT-95195 Flulaval Intramuscular Injectable 18:18:11 CDT CPT-07759 Fluzone Thim Free 36mo and older 11:16:54 C DT CPT-81135 Tdap 7yrs or > 11:16:53 CDT CPT-86223 Visit 11:16:53 CDT CPT-36900 Visit 11:14:16 CDT CPT-28771 Visit 10:54:00 CDT CPT-16507 Visit 16:24:31 CDT CPT-73248 Sono OB comp > 14 weeks - XRAY USE ONLY 12:01:14 CDT CPT-08978 Visit 15:58:08 CDT CPT-10123 Visit 12:16:56 CDT CPT-84196F Sono OB comp <14 weeks ([place] Only) - X RAY USE ONLY 12:09:02 CDT CPT-90264 Spec Collection and Handling Fee 10:11:50 C DT CPT-27729 Visit 10:11:49 CDT CPT-J1050 Depo Provera 150 mg (Medroxyprogesterone) 08/30 16:06:30 FARM BUTCHER CPT-20509 Abx/Therapy Injection 16:06:30 FARM BUTCHER CPT-J1050 Depo Provera 150 mg (Medroxyprogesterone) 08/30 15:39:17 FARM BUTCHER CPT-85904 Visit 15:01:38 CDT CPT-02957 Sono OB comp > 14 weeks 16:05:04 CDT 03/18 CPT-07813 Spec Collection and Handling Fee 10:45:40 C DT CPT-22242 Visit 10:45:40 CDT
[2020-01-04 23:55] VITALS: BP 117/55
--- OUTSIDE RECORDS SUMMARY | 2020-01-04 23:55 | XMS REPORT | Clinical Summary ---
Author Author Admin, Giuliana Flores Organization [facility] Address Unknown Phone Unavailable Allergies, Adverse Reactions, Alerts Allergy Name Reaction Description Start Date Severity Status Pr ovider No Known Allergies Shanno n Mercado Conditions or Problems Problem Name Problem Code Onset Date Status Entry Date Provider Comment Standard Description Annotate Supervision of other normal V22.1 Resolved Cintia Pagan MARKETING CONSULTANT Supervision of other normal Supervision of other normal V22.1 Inactive Dionne Stewart MD Supervision of other normal Supervision high risk , second trimester V23.9 2014 Active Dionne Stewart MD Supervision of unspecified high -risk care, delayed V23.7 Resolved Cintia flores APRN Supervision of high-risk : insufficient care Drug abuse, hx of V15.89 Active Dionne Stewart MD Other specified personal history presenting hazards to health Tobacco abuse, gestational 305.1 Active Nilda Stewart MD Tobacco use disorder NEED FOR PROPHYLACTIC VACCINATION WITH FLLJNCN-SNYFU-Z UBELLA (MMR) VACCINE V06.4 Resolved Cintia Pagan APRN Need for prophylactic vaccination with mqdxvvs-arycy-xfcdgic [MMR] vaccine Contraceptive management V25.9 Resolved Taiwo Stewart MD Encounter for unspecified contraceptive management follow-up, routine V24.2 Resolved 12/31 Dionne Stewart MD Routine follow-up Vaginal discharge 623.5 Resolved Dionne Flores D Leukorrhea, not specified as infective Genital herpes 054.10 Active Dionne Stewart MD Genital herpes, unspecified 9 weeks gestation of V28.9 Inactive 01/05 Xaio Brasher Encounter for unspecified scre ening of [...] gestation of V28.9 Inactive 2017 Nayeli Duke MARKETING CONSULTANT Encounter for unspecified scre ening of mother Abnormal biochemical finding on screening 796.5 20 09/03/10 Active Estela Clifton GLASS CLEANING MACHINE TENDER Abnormal finding on antenata l screening Sinusitis, acute frontal 461.1 Active Rosalina berg MARKETING CONSULTANT Acute frontal sinusitis GDM, diet controlled 648.80 Active Nayeli Duke MARKETING CONSULTANT Abnormal glucose tolerance complicating , childbirth, or the puerperium, unspecified as to episode of care or not applicable 30 weeks gestation of V28.9 Active 2017 Nayeli Duke MARKETING CONSULTANT Encounter for unspecified scre ening of mother care, delayed ICD-V23.7 Inactive Kristin Pagan MARKETING CONSULTANT NEED FOR PROPHYLACTIC VACCINATION WITH BAWUPEH-GXFKE-S UBELLA (MMR) VACCINE ICD-V06.4 Inactive Cintia Pagan MARKETING CONSULTANT Contraceptive management ICD-V25.9 Inactive Dionne Stewart [...] for gestational DM; O24.420 GLUC OSE BLOOD 77152489752 Active Nayeliespinoza Duke APRN Active TRUE METRIX GO GLUCOSE METER W/DEVICE KIT Check blood sugars as directed BLOOD GLUCOSE MONITORING SUPPL 44093724838 Active Nayeli Srikanth MCMANUS Active LANCETS Test blood sugars as directed for gestational DM O24. 420 LANCETS 75488233143 Active Nayeli Srikanth MCMANUS Activ e AUGMENTIN 875-125 MG ORAL TABLET 1 po BID x 10 days 09/06/11 AMOXICILLIN-POT CLAVULANATE 17760927335 No Longer Active Rosalina Bland MARKETING CONSULTANT Active FERROUS SULFATE 325 (65 FE) MG ORAL TABLET 1 tablet daily 5 FERROUS SULFATE 00072465414 Active Estela Clifton LPN Active LORATADINE 10 MG ORAL TABLET 1 tablet by mouth daily LORATADINE 53022042208 Active Dionne Stewart MD Active TYLENOL PM EXTRA STRENGTH 500-25 MG ORAL TABLET PRN 12/31 DIPHENHYDRAMINE-APAP (SLEEP) 80175520557 No Longer Active Dionne Stewart MD Active CONCEPT DHA 53.5-38-1 MG ORAL CAPSULE one tab PO daily VYEXPL-BWRWN-WEVK-FA-OMEGA 3 74508244168 Active Dionne Stewart MD Active FLAGYL 500 MG ORAL TABLET 1 tablet PO BID for 7 days 2 METRONIDAZOLE 90865582974 No Longer Active Dionne Stewart MD Active EQL FORMULA 28-0.8 MG ORAL TABLET 1 tablet daily 1 VIT-FE FUMARATE-FA 22721403913 No Longer Active Dionne Stewart MD A ctive CONCEPT DHA 53.5-38-1 MG ORAL CAPSULE one tab PO daily GHYOFM-JFVRC-IZOX-FA-OMEGA 3 37925541216 No Longer Active Dionne Stewart MD Active CYCLOBENZAPRINE HCL 10 MG ORAL TABLET 1 tablet by mout h three times daily as needed for muscle spasm/pain CYCLOBENZAPRINE HCL 54729826230 No Longer Active Dionne Stewart MD Active TRI-SPRINTEC 0.18/0.215/0.25 MG-35 MCG ORAL TABLET 1 po qd a s directed NORGESTIM-ETH ESTRAD TRIPHASIC 68021329447 N o Longer Active Dionne Stewart MD Active FLAGYL 250 MG ORAL TABLET One tablet three times a day METRONIDAZOLE 82682758246 No Longer Active Cintia Pagan APRN Active [facility] 28-0.8 MG ORAL TABLET 04/10 VIT-FE FUMARATE-FA 01412582837 No Longer Active Dionne Stewart MD Active [facility] 28-0.8 MG ORAL TABLET 04/10 [facility] 28-0.8 MG ORAL TABLET VIT-FE FUMARATE-FA Inactive TRI-SPRINTEC 0.18/0.215/0.25 MG-35 MCG ORAL TABLET 1 po qd a s directed TRI-SPRINTEC 0.18/0.215/0.25 MG-35 MCG ORAL TABL ET 273098 NORGESTIM-ETH ESTRAD TRIPHASIC Inactive CYCLOBENZAPRINE HCL 10 MG ORAL TABLET 1 tablet by mout h three times daily as needed for muscle spasm/pain CYCLOBENZAP RINE HCL 10 MG ORAL TABLET 288312 CYCLOBENZAPRINE HCL Inactive CONCEPT DHA 53.5-38-1 MG ORAL CAPSULE one tab PO daily CONCEPT DHA 53.5-38-1 MG ORAL CAPSULE CBUMOH-WXLXR-THSR-FA-O BILLIE 3 Inactive FLAGYL 500 MG ORAL TABLET 1 tablet PO BID for 7 days 2 FLAGYL 500 MG ORAL TABLET 735729 METRONIDAZOLE Inactive TYLENOL PM EXTRA STRENGTH 500-25 MG ORAL TABLET PRN 12/31 TYLENOL PM EXTRA STRENGTH 500-25 MG ORAL TABLET 8476705 DIPHEN HYDRAMINE-APAP (SLEEP) Inactive FLAGYL 250 MG ORAL TABLET One tablet three times a day FLAGYL 250 MG ORAL TABLET 947899 METRONIDAZOLE Inactive AUGMENTIN 875-125 MG ORAL TABLET 1 po BID x 10 days 09/06/11 AUGMENTIN 875-125 MG ORAL TABLET 951811 AMOXICILLIN-POT CLAVULANATE Inactive Immunizations Vaccine Administration Date Value Standard Koko cription hepatitis B vaccine series yes hepat itis B vaccine, unspecified formulation hepatitis B vaccine series no hepat itis B vaccine, unspecified formulation Vital Signs Date Name Value Unit Range Description blood pressure, diastolic, repeated by physician 74 [...] d blood pressure, diastolic 64 mm[Hg] BP imramontes blood pressure, systolic 110 mm[Hg] BP sys [...] d blood pressure, diastolic 52 mm[Hg] BP miramotnes blood pressure, systolic 116 mm[Hg] BP sys [...] 11 .0-15.0 platelet count 226 THOUSAND/UL 10*3/mm3 694-607 6989/05/11 mean platelet volume 10.3 fL 7.5-12.5 Lab [...] SCREEN, RBCW/REFL I , Drug Abuse Pnl 10-50/58564 - Blood bank antibody screen, serum NO ANTIBODIES DETECTED Lab Report: CBC, [id number] Gluc cari-1spec - Hematology leukocyte count, blood [...] N Encounters Code Encounter Date Provider Facility CPT-47679 Level 4 Est. Patient 15:39:57 CDT Nayeli herrera [facility] CPT-05470 Level 3 Est. Patient 17:26:51 CDT Rosalina berg [facility] CPT-54691 Level 3 Est. Patient 17:31:05 CONTENT ASSISTANT Cintia sommer [facility] Procedures Code Procedure Name Date Entry Date Standard Desc ription CPT-73346 Addl Vx - Ix admin via ID IM or jet injects without counseling by physician 18:18:11 CDT CPT-97386 Boostrix Intramuscular Suspension 5-2.5-18.5 201 04/01/05 18:18:11 CDT CPT-53181 First Vx - Ix admin via ID I M or jet injects without counseling by physician 18:18:11 CDT CPT-93240 Flulaval Intramuscular Injectable 18:18:11 CDT CPT-92628 Fluzone Thim Free 36mo and older 11:16:54 C DT CPT-78801 Tdap 7yrs or > 11:16:53 CDT CPT-97902 Visit 11:16:53 CDT CPT-47409 Visit 11:14:16 CDT CPT-06011 Visit 10:54:00 CDT CPT-04828 Visit 16:24:31 CDT CPT-30595 Sono OB comp > 14 weeks - XRAY USE ONLY 12:01:14 CDT CPT-33371 Visit 15:58:08 CDT CPT-59911 Visit 12:16:56 CDT CPT-83689X Sono OB comp <14 weeks ([place] Only) - X RAY USE ONLY 12:09:02 CDT CPT-23843 Spec Collection and Handling Fee 10:11:50 C DT CPT-50034 Visit 10:11:49 CDT CPT-J1050 Depo Provera 150 mg (Medroxyprogesterone) 08/30 16:06:30 CONTENT ASSISTANT CPT-95555 Abx/Therapy Injection 16:06:30 CONTENT ASSISTANT CPT-J1050 Depo Provera 150 mg (Medroxyprogesterone) 08/30 15:39:17 CONTENT ASSISTANT CPT-91247 Visit 15:01:38 CDT CPT-82510 Sono OB comp > 14 weeks 16:05:04 CDT 03/18 CPT-47046 Spec Collection and Handling Fee 10:45:40 C DT CPT-81391 Visit 10:45:40 CDT
--- OUTSIDE RECORDS SUMMARY | 2020-01-04 23:55 | XMS REPORT | Clinical Summary ---
Author Author Admin, Giuliana Flores Organization [facility] Address Unknown Phone Unavailable Allergies, Adverse Reactions, Alerts Allergy Name Reaction Description Start Date Severity Status Pr ovider No Known Allergies Susan n Mercado Conditions or Problems Problem Name [...] use disorder NEED FOR PROPHYLACTIC VACCINATION WITH ZEUESAY-JUBSO-Y UBELLA (MMR) VACCINE V06.4 Resolved Cintia Pagan APRN Need for prophylactic vaccination with rjbfzwl-gulxi-jpzkffg [MMR] vaccine Contraceptive management V25.9 Resolved Taiwo [...] of V28.9 Inactive 2017 Nayeli Duke FORKLIFT OPERATOR Encounter for unspecified scre ening of mother Abnormal biochemical finding on screening 796.5 20 09/03/10 Active Estela Clifton INDUCTION FURNACE OPERATOR Abnormal finding on antenata l screening Sinusitis, acute frontal 461.1 Active Rosalina Se berg FORKLIFT OPERATOR Acute frontal sinusitis GDM, diet controlled 648.80 Active Nayeli Duke FORKLIFT OPERATOR Abnormal glucose tolerance complicating , childbirth, or the puerperium, unspecified as to episode of care or not applicable 30 weeks gestation of V28.9 Active 2017 Nayeli Duke FORKLIFT OPERATOR Encounter for unspecified scre ening of mother care, delayed ICD-V23.7 Inactive Kristin Pagan FORKLIFT OPERATOR NEED FOR PROPHYLACTIC VACCINATION WITH PVNBKLV-QFLZA-A UBELLA (MMR) VACCINE ICD-V06.4 Inactive Cintia Pagan FORKLIFT OPERATOR Contraceptive management ICD-V25.9 Inactive Dionne Stewart [...] for gestational DM; O24.420 GLUC OSE BLOOD 70254004858 Active Nayeli Srikanth MCMANUS Active TRUE METRIX GO GLUCOSE METER W/DEVICE KIT Check blood sugars as directed BLOOD GLUCOSE MONITORING SUPPL 40743285192 Active Nayeliespinoza Duke APRN Active LANCETS Test blood sugars as directed for gestational DM O24. 420 LANCETS 00804537885 Active Nayeliespinoza Duke APRN Activ e AUGMENTIN 875-125 MG ORAL TABLET 1 po BID x 10 days 09/06/11 AMOXICILLIN-POT CLAVULANATE 82304146170 No Longer Active Rosalina Bland FORKLIFT OPERATOR Active FERROUS SULFATE 325 (65 FE) MG ORAL TABLET 1 tablet daily 5 FERROUS SULFATE 35184999696 Active Estela Clifton LPN Active LORATADINE 10 MG ORAL TABLET 1 tablet by mouth daily LORATADINE 50465838482 Active Dionne Stewart MD Active TYLENOL PM EXTRA STRENGTH 500-25 MG ORAL TABLET PRN 12/31 DIPHENHYDRAMINE-APAP (SLEEP) 24440263945 No Longer Active Dionne Stewart MD Active CONCEPT DHA 53.5-38-1 MG ORAL CAPSULE one tab PO daily XDPYOA-CUIAG-HLIH-FA-OMEGA 3 70429453277 Active Dionne Stewart MD Active FLAGYL 500 MG ORAL TABLET 1 tablet PO BID for 7 days 2 METRONIDAZOLE 62880999654 No Longer Active Dionne Stewart MD Active EQL FORMULA 28-0.8 MG ORAL TABLET 1 tablet daily 1 VIT-FE FUMARATE-FA 16183906952 No Longer Active Dionne Stewart MD A ctive CONCEPT DHA 53.5-38-1 MG ORAL CAPSULE one tab PO daily QJJCDH-GUDCM-FLVK-FA-OMEGA 3 80974784182 No Longer Active Dionne Stewart MD Active CYCLOBENZAPRINE HCL 10 MG ORAL TABLET 1 tablet by mout h three times daily as needed for muscle spasm/pain CYCLOBENZAPRINE HCL 92055219758 No Longer Active Dionne Stewart MD Active TRI-SPRINTEC 0.18/0.215/0.25 MG-35 MCG ORAL TABLET 1 po qd a s directed NORGESTIM-ETH ESTRAD TRIPHASIC 63422266868 N o Longer Active Dionne Stewart MD Active FLAGYL 250 MG ORAL TABLET One tablet three times a day METRONIDAZOLE 58162694343 No Longer Active Cintia Pagan APRN Active [facility] 28-0.8 MG ORAL TABLET 04/10 VIT-FE FUMARATE-FA 82571459732 No Longer Active Dionne Stewart MD Active [facility] 28-0.8 MG ORAL TABLET 04/10 [facility] 28-0.8 MG ORAL TABLET VIT-FE FUMARATE-FA Inactive TRI-SPRINTEC 0.18/0.215/0.25 MG-35 MCG ORAL TABLET 1 po qd a s directed TRI-SPRINTEC 0.18/0.215/0.25 MG-35 MCG ORAL TABL ET 199183 NORGESTIM-ETH ESTRAD TRIPHASIC Inactive CYCLOBENZAPRINE HCL 10 MG ORAL TABLET 1 tablet by mout h three times daily as needed for muscle spasm/pain CYCLOBENZAP RINE HCL 10 MG ORAL TABLET 302692 CYCLOBENZAPRINE HCL Inactive CONCEPT DHA 53.5-38-1 MG ORAL CAPSULE one tab PO daily CONCEPT DHA 53.5-38-1 MG ORAL CAPSULE FZBRKX-TEPIP-JCXD-FA-O BILLIE 3 Inactive FLAGYL 500 MG ORAL TABLET 1 tablet PO BID for 7 days 2 FLAGYL 500 MG ORAL TABLET 348059 METRONIDAZOLE Inactive TYLENOL PM EXTRA STRENGTH 500-25 MG ORAL TABLET PRN 12/31 TYLENOL PM EXTRA STRENGTH 500-25 MG ORAL TABLET 5744842 DIPHEN HYDRAMINE-APAP (SLEEP) Inactive FLAGYL 250 MG ORAL TABLET One tablet three times a day FLAGYL 250 MG ORAL TABLET 138343 METRONIDAZOLE Inactive AUGMENTIN 875-125 MG ORAL TABLET 1 po BID x 10 days 09/06/11 AUGMENTIN 875-125 MG ORAL TABLET 223454 AMOXICILLIN-POT CLAVULANATE Inactive Immunizations Vaccine Administration Date [...] 11 .0-15.0 platelet count 226 THOUSAND/UL 10*3/mm3 408-191 0725/05/11 mean platelet volume 10.3 fL 7.5-12.5 Lab [...] SCREEN, RBCW/REFL I , Drug Abuse Pnl 10-50/21206 - Blood bank antibody screen, serum NO ANTIBODIES DETECTED Lab Report: CBC, [id number] Gluc cari-1spec - Hematology leukocyte count, blood [...] N Encounters Code Encounter Date Provider Facility CPT-12480 Level 4 Est. Patient 15:39:57 CDT Nayeli herrera [facility] CPT-22880 Level 3 Est. Patient 17:26:51 CDT Rosalina berg [facility] CPT-87923 Level 3 Est. Patient 17:31:05 NEURODIAGNOSTIC TECHNICIAN Cintia sommer [facility] Procedures Code Procedure Name Date Entry Date Standard Desc ription CPT-91759 Addl Vx - Ix admin via ID IM or jet injects without counseling by physician 18:18:11 CDT CPT-49049 Boostrix Intramuscular Suspension 5-2.5-18.5 201 04/01/05 18:18:11 CDT CPT-07888 First Vx - Ix admin via ID I M or jet injects without counseling by physician 18:18:11 CDT CPT-17908 Flulaval Intramuscular Injectable 18:18:11 CDT CPT-31590 Fluzone Thim Free 36mo and older 11:16:54 C DT CPT-54206 Tdap 7yrs or > 11:16:53 CDT CPT-92228 Visit 11:16:53 CDT CPT-80058 Visit 11:14:16 CDT CPT-98992 Visit 10:54:00 CDT CPT-62045 Visit 16:24:31 CDT CPT-16413 Sono OB comp > 14 weeks - XRAY USE ONLY 12:01:14 CDT CPT-81548 Visit 15:58:08 CDT CPT-46013 Visit 12:16:56 CDT CPT-30636V Sono OB comp <14 weeks ([place] Only) - X RAY USE ONLY 12:09:02 CDT CPT-80015 Spec Collection and Handling Fee 10:11:50 C DT CPT-94726 Visit 10:11:49 CDT CPT-J1050 Depo Provera 150 mg (Medroxyprogesterone) 08/30 16:06:30 NEURODIAGNOSTIC TECHNICIAN CPT-99162 Abx/Therapy Injection 16:06:30 NEURODIAGNOSTIC TECHNICIAN CPT-J1050 Depo Provera 150 mg (Medroxyprogesterone) 08/30 15:39:17 NEURODIAGNOSTIC TECHNICIAN CPT-09698 Visit 15:01:38 CDT CPT-55709 Sono OB comp > 14 weeks 16:05:04 CDT 03/18 CPT-93936 Spec Collection and Handling Fee 10:45:40 C DT CPT-92561 Visit 10:45:40 CDT
--- OUTSIDE RECORDS SUMMARY | 2020-01-04 23:55 | XMS REPORT | Clinical Summary ---
Author Author Admin, Giuliana Flores Organization [facility] Address Unknown Phone Unavailable Allergies, Adverse [...] use disorder NEED FOR PROPHYLACTIC VACCINATION WITH UBTYWAW-USBEY-Z UBELLA (MMR) VACCINE V06.4 Resolved Cintia Pagan APRN Need for prophylactic vaccination with vyeuipy-gsuni-dxnkttq [MMR] vaccine Contraceptive management V25.9 Resolved Taiwo [...] gestation of V28.9 Inactive 2017 Nayeli Duke HEMMER AUTOMATIC Encounter for unspecified scre ening of mother Abnormal biochemical finding on screening 796.5 20 09/03/10 Active Estela Clifton VFX ARTIST Abnormal finding on antenata l screening Sinusitis, acute frontal 461.1 Active Rosalina Se berg HEMMER AUTOMATIC Acute frontal sinusitis GDM, diet controlled 648.80 Active Nayeli Duke HEMMER AUTOMATIC Abnormal glucose tolerance complicating , childbirth, or the puerperium, unspecified as to episode of care or not applicable 30 weeks gestation of V28.9 Active 2017 Nayeli Duke HEMMER AUTOMATIC Encounter for unspecified scre ening of mother care, delayed ICD-V23.7 Inactive Kristin Pagan HEMMER AUTOMATIC NEED FOR PROPHYLACTIC VACCINATION WITH PJEDDII-QHLIO-H UBELLA (MMR) VACCINE ICD-V06.4 Inactive Cintia Pagan HEMMER AUTOMATIC Contraceptive management ICD-V25.9 Inactive Dionne Stewart MD [...] for gestational DM; O24.420 GLUC OSE BLOOD 13323681236 Active Nayeli Srikanth MCMANUS Active TRUE METRIX GO GLUCOSE METER W/DEVICE KIT Check blood sugars as directed BLOOD GLUCOSE MONITORING SUPPL 86472456828 Active Nayeliespinoza Duke APRN Active LANCETS Test blood sugars as directed for gestational DM O24. 420 LANCETS 69798061756 Active Nayeliespinoza Duke APRN Activ e AUGMENTIN 875-125 MG ORAL TABLET 1 po BID x 10 days 09/06/11 AMOXICILLIN-POT CLAVULANATE 31421533235 No Longer Active Rosalina Bland HEMMER AUTOMATIC Active FERROUS SULFATE 325 (65 FE) MG ORAL TABLET 1 tablet daily 5 FERROUS SULFATE 72382246627 Active Estela Clifton LPN Active LORATADINE 10 MG ORAL TABLET 1 tablet by mouth daily LORATADINE 72401898718 Active Dionne Stewart MD Active TYLENOL PM EXTRA STRENGTH 500-25 MG ORAL TABLET PRN 12/31 DIPHENHYDRAMINE-APAP (SLEEP) 22287629061 No Longer Active Dionne Stewart MD Active CONCEPT DHA 53.5-38-1 MG ORAL CAPSULE one tab PO daily NTDDQO-FVKKR-SFDV-FA-OMEGA 3 79660319053 Active Dionne Stewart MD Active FLAGYL 500 MG ORAL TABLET 1 tablet PO BID for 7 days 2 METRONIDAZOLE 51590475666 No Longer Active Dionne Stewart MD Active EQL FORMULA 28-0.8 MG ORAL TABLET 1 tablet daily 1 VIT-FE FUMARATE-FA 81508287240 No Longer Active Dionne Stewart MD A ctive CONCEPT DHA 53.5-38-1 MG ORAL CAPSULE one tab PO daily TCVRSS-GHSQA-RYXJ-FA-OMEGA 3 32454134324 No Longer Active Dionne Stewart MD Active CYCLOBENZAPRINE HCL 10 MG ORAL TABLET 1 tablet by mout h three times daily as needed for muscle spasm/pain CYCLOBENZAPRINE HCL 18497096402 No Longer Active Dionne Stewart MD Active TRI-SPRINTEC 0.18/0.215/0.25 MG-35 MCG ORAL TABLET 1 po qd a s directed NORGESTIM-ETH ESTRAD TRIPHASIC 57416999291 N o Longer Active Dionne Stewart MD Active FLAGYL 250 MG ORAL TABLET One tablet three times a day METRONIDAZOLE 74736164546 No Longer Active Cintia Pagan APRN Active [facility] 28-0.8 MG ORAL TABLET 04/10 VIT-FE FUMARATE-FA 75368501144 No Longer Active Dionne Stewart MD Active [facility] 28-0.8 MG ORAL TABLET 04/10 [facility]S 28-0.8 MG ORAL TABLET VIT-FE FUMARATE-FA Inactive TRI-SPRINTEC 0.18/0.215/0.25 MG-35 MCG ORAL TABLET 1 po qd a s directed TRI-SPRINTEC 0.18/0.215/0.25 MG-35 MCG ORAL TABL ET 840843 NORGESTIM-ETH ESTRAD TRIPHASIC Inactive CYCLOBENZAPRINE HCL 10 MG ORAL TABLET 1 tablet by mout h three times daily as needed for muscle spasm/pain CYCLOBENZAP RINE HCL 10 MG ORAL TABLET 481474 CYCLOBENZAPRINE HCL Inactive CONCEPT DHA 53.5-38-1 MG ORAL CAPSULE one tab PO daily CONCEPT DHA 53.5-38-1 MG ORAL CAPSULE SVDFUN-PHXDC-HEGC-FA-O BILLIE 3 Inactive FLAGYL 500 MG ORAL TABLET 1 tablet PO BID for 7 days 2 FLAGYL 500 MG ORAL TABLET 913335 METRONIDAZOLE Inactive TYLENOL PM EXTRA STRENGTH 500-25 MG ORAL TABLET PRN 12/31 TYLENOL PM EXTRA STRENGTH 500-25 MG ORAL TABLET 3129282 DIPHEN HYDRAMINE-APAP (SLEEP) Inactive FLAGYL 250 MG ORAL TABLET One tablet three times a day FLAGYL 250 MG ORAL TABLET 739681 METRONIDAZOLE Inactive AUGMENTIN 875-125 MG ORAL TABLET 1 po BID x 10 days 09/06/11 AUGMENTIN 875-125 MG ORAL TABLET 720006 AMOXICILLIN-POT CLAVULANATE Inactive Immunizations Vaccine Administration Date [...] 11 .0-15.0 platelet count 226 THOUSAND/UL 10*3/mm3 823-389 3714/05/11 mean platelet volume 10.3 fL 7.5-12.5 Lab [...] SCREEN, RBCW/REFL I , Drug Abuse Pnl 10-50/75853 - Blood bank antibody screen, serum NO ANTIBODIES DETECTED Lab Report: CBC, [id number] Gluc cari-1spec - Hematology leukocyte count, blood [...] N Encounters Code Encounter Date Provider Facility CPT-37177 Level 4 Est. Patient 15:39:57 CDT Nayeli herrera [facility] CPT-64030 Level 3 Est. Patient 17:26:51 CDT Rosalina berg [facility] CPT-11005 Level 3 Est. Patient 17:31:05 SENIOR ACCOUNTING ASSOCIATE Cintia sommer [facility] Procedures Code Procedure Name Date Entry Date Standard Desc ription CPT-52212 Addl Vx - Ix admin via ID IM or jet injects without counseling by physician 18:18:11 CDT CPT-71921 Boostrix Intramuscular Suspension 5-2.5-18.5 201 04/01/05 18:18:11 CDT CPT-52104 First Vx - Ix admin via ID I M or jet injects without counseling by physician 18:18:11 CDT CPT-01591 Flulaval Intramuscular Injectable 18:18:11 CDT CPT-89914 Fluzone Thim Free 36mo and older 11:16:54 C DT CPT-38289 Tdap 7yrs or > 11:16:53 CDT CPT-02705 Visit 11:16:53 CDT CPT-54498 Visit 11:14:16 CDT CPT-11096 Visit 10:54:00 CDT CPT-92950 Visit 16:24:31 CDT CPT-16011 Sono OB comp > 14 weeks - XRAY USE ONLY 12:01:14 CDT CPT-51411 Visit 15:58:08 CDT CPT-61432 Visit 12:16:56 CDT CPT-17542C Sono OB comp <14 weeks ([place] Only) - X RAY USE ONLY 12:09:02 CDT CPT-03193 Spec Collection and Handling Fee 10:11:50 C DT CPT-94404 Visit 10:11:49 CDT CPT-J1050 Depo Provera 150 mg (Medroxyprogesterone) 08/30 16:06:30 SENIOR ACCOUNTING ASSOCIATE CPT-12644 Abx/Therapy Injection 16:06:30 SENIOR ACCOUNTING ASSOCIATE CPT-J1050 Depo Provera 150 mg (Medroxyprogesterone) 08/30 15:39:17 SENIOR ACCOUNTING ASSOCIATE CPT-57126 Visit 15:01:38 CDT CPT-29378 Sono OB comp > 14 weeks 16:05:04 CDT 03/18 CPT-05889 Spec Collection and Handling Fee 10:45:40 C DT CPT-16911 Visit 10:45:40 CDT
--- OUTSIDE RECORDS SUMMARY | 2020-01-04 23:55 | XMS REPORT | Clinical Summary ---
Author Author Admin, Giuliana Flores Organization [facility] Address Unknown Phone Unavailable Allergies, [...] use disorder NEED FOR PROPHYLACTIC VACCINATION WITH IZGZVRU-QJQSL-M UBELLA (MMR) VACCINE V06.4 Resolved Cintia Pagan APRN Need for prophylactic vaccination with mnbwpka-jnckh-yqsofqd [MMR] vaccine Contraceptive management V25.9 Resolved Taiwo [...] gestation of V28.9 Inactive 2017 Nayeli Duke PARTS SALVAGER Encounter for unspecified scre ening of mother Abnormal biochemical finding on screening 796.5 20 09/03/10 Active Estela Clifton SHUTTLE VAN DRIVER Abnormal finding on antenata l screening Sinusitis, acute frontal 461.1 Active Rosalina Se berg PARTS SALVAGER Acute frontal sinusitis GDM, diet controlled 648.80 Active Nayeli Duke PARTS SALVAGER Abnormal glucose tolerance complicating , childbirth, or the puerperium, unspecified as to episode of care or not applicable 30 weeks gestation of V28.9 Inactive 2017 Nayeli Duke PARTS SALVAGER Encounter for unspecified scre ening of mother 31 weeks gestation of V28.9 Active 2017 Dionne Stewart MD Encounter for unspecified scre ening of mother care, delayed ICD-V23.7 Inactive Kristin Pagan PARTS SALVAGER NEED FOR PROPHYLACTIC VACCINATION WITH ODIQAMR-FSRNY-Q UBELLA (MMR) VACCINE ICD-V06.4 Inactive Cintia Pagan PARTS SALVAGER Contraceptive management ICD-V25.9 Inactive Dionne Stewart MD follow-up, routine ICD-V24.2 Inacti ve Dionne Stewart MD Vaginal discharge ICD-623.5 Inactive Dionne spencer MD 29 weeks gestation of ICD-V28.9 Inac tive Nayeli Duke PARTS SALVAGER Medication List Medication Instructions Start Date Stop Date Generic Name NDC Status Provider Patient Instruction TRUE METRIX BLOOD GLUCOSE TEST IN VITRO STRIP Check bl ood sugars four times a day as directed for gestational DM; O24.420 GLUC OSE BLOOD 81295416800 Active Nayeli Worth PARTS SALVAGER Active TRUE METRIX GO GLUCOSE METER W/DEVICE KIT Check blood sugars as directed BLOOD GLUCOSE MONITORING SUPPL 26936195671 Active Nayeli Worth YONATHAN Active LANCETS Test blood sugars as directed for gestational DM O24. 420 LANCETS 64545522139 Active Nayeli Worth PARTS SALVAGER Activ e AUGMENTIN 875-125 MG ORAL TABLET 1 po BID x 10 days 09/06/11 AMOXICILLIN-POT CLAVULANATE 51831992030 No Longer Active Rosalina Bland PARTS SALVAGER Active FERROUS SULFATE 325 (65 FE) MG ORAL TABLET 1 tablet daily 5 FERROUS SULFATE 96957381254 Active Estela Clifton LPN Active LORATADINE 10 MG ORAL TABLET 1 tablet by mouth daily LORATADINE 60463756455 Active Dionne Stewart MD Active TYLENOL PM EXTRA STRENGTH 500-25 MG ORAL TABLET PRN 12/31 DIPHENHYDRAMINE-APAP (SLEEP) 96886729991 No Longer Active Dionne Stewart MD Active CONCEPT DHA 53.5-38-1 MG ORAL CAPSULE one tab PO daily FHJZUV-RIUVX-TMVI-FA-OMEGA 3 27695336536 Active Dionne Stewart MD Active FLAGYL 500 MG ORAL TABLET 1 tablet PO BID for 7 days 2 METRONIDAZOLE 81223548334 No Longer Active Dionne Stewart MD Active EQL FORMULA 28-0.8 MG ORAL TABLET 1 tablet daily 1 VIT-FE FUMARATE-FA 36320872649 No Longer Active Dionne Stewart MD A ctive CONCEPT DHA 53.5-38-1 MG ORAL CAPSULE one tab PO daily UCYRRR-EVRIF-KEAC-FA-OMEGA 3 93049768234 No Longer Active Dionne Stewart MD Active CYCLOBENZAPRINE HCL 10 MG ORAL TABLET 1 tablet by mout h three times daily as needed for muscle spasm/pain CYCLOBENZAPRINE HCL 20413155811 No Longer Active Dionne Stewart MD Active TRI-SPRINTEC 0.18/0.215/0.25 MG-35 MCG ORAL TABLET 1 po qd a s directed NORGESTIM-ETH ESTRAD TRIPHASIC 73046017807 N o Longer Active Dionne Stewart MD Active FLAGYL 250 MG ORAL TABLET One tablet three times a day METRONIDAZOLE 13536471964 No Longer Active Cintia Pagan APRN Active [facility] 28-0.8 MG ORAL TABLET 04/10 VIT-FE FUMARATE-FA 46595176234 No Longer Active Dionne Stewart MD Active [facility] 28-0.8 MG ORAL TABLET 04/10 [facility] 28-0.8 MG ORAL TABLET VIT-FE FUMARATE-FA Inactive TRI-SPRINTEC 0.18/0.215/0.25 MG-35 MCG ORAL TABLET 1 po qd a s directed TRI-SPRINTEC 0.18/0.215/0.25 MG-35 MCG ORAL TABL ET 629465 NORGESTIM-ETH ESTRAD TRIPHASIC Inactive CYCLOBENZAPRINE HCL 10 MG ORAL TABLET 1 tablet by mout h three times daily as needed for muscle spasm/pain CYCLOBENZAP RINE HCL 10 MG ORAL TABLET 332622 CYCLOBENZAPRINE HCL Inactive CONCEPT DHA 53.5-38-1 MG ORAL CAPSULE one tab PO daily CONCEPT DHA 53.5-38-1 MG ORAL CAPSULE GZZLYJ-FRTGQ-BRZP-FA-O BILLIE 3 Inactive FLAGYL 500 MG ORAL TABLET 1 tablet PO BID for 7 days 2 FLAGYL 500 MG ORAL TABLET 678978 METRONIDAZOLE Inactive TYLENOL PM EXTRA STRENGTH 500-25 MG ORAL TABLET PRN 12/31 TYLENOL PM EXTRA STRENGTH 500-25 MG ORAL TABLET 8380064 DIPHEN HYDRAMINE-APAP (SLEEP) Inactive FLAGYL 250 MG ORAL TABLET One tablet three times a day FLAGYL 250 MG ORAL TABLET 299676 METRONIDAZOLE Inactive AUGMENTIN 875-125 MG ORAL TABLET 1 po BID x 10 days 09/06/11 AUGMENTIN 875-125 MG ORAL TABLET 006004 AMOXICILLIN-POT CLAVULANATE Inactive Immunizations Vaccine Administration Date [...] 11 .0-15.0 platelet count 226 THOUSAND/UL 10*3/mm3 469-627 6260/05/11 mean platelet volume 10.3 fL 7.5-12.5 Lab [...] SCREEN, RBCW/REFL I , Drug Abuse Pnl 10-50/67707 - Blood bank antibody screen, serum NO ANTIBODIES DETECTED Lab Report: CBC, [id number] Gluc cari-1spec - Hematology leukocyte count, blood 10.2 10^3/MM^3 10*3/mm3 4.6-10.2 mean corpuscular hemoglobin concentration, RBC 33.9 G/DL % 31.8-35.4 red blood cell distribution width 11.1 % 13 .0-18.0 platelet count 201 10^3/MM^3 10*3/mm3 163-032 3738/09/21 erythrocyte (RBC) count 3.30 10^6/MM^3 10*6/mm3 3.80-5.8 [...] N Encounters Code Encounter Date Provider Facility CPT-56934 Level 4 Est. Patient 15:39:57 CDT Nayeli herrera [facility] CPT-86472 Level 3 Est. Patient 17:26:51 CDT Rosalina berg [facility] CPT-33065 Level 3 Est. Patient 17:31:05 INDUSTRIAL HYGENIST Cintia Al kemal [facility] Procedures Code Procedure Name Date Entry Date Standard Desc ription CPT-67725 Visit 08:28:55 CDT CPT-25289 Addl Vx - Ix admin via ID IM or jet injects without counseling by physician 18:18:11 CDT CPT-09122 Boostrix Intramuscular Suspension 5-2.5-18.5 201 04/01/05 18:18:11 CDT CPT-55016 First Vx - Ix admin via ID I M or jet injects without counseling by physician 18:18:11 CDT CPT-74962 Flulaval Intramuscular Injectable 18:18:11 CDT CPT-50011 Fluzone Thim Free 36mo and older 11:16:54 C DT CPT-11604 Tdap 7yrs or > 11:16:53 CDT CPT-76023 Visit 11:16:53 CDT CPT-35220 Visit 11:14:16 CDT CPT-85237 Visit 10:54:00 CDT CPT-02279 Visit 16:24:31 CDT CPT-09962 Sono OB comp > 14 weeks - XRAY USE ONLY 12:01:14 CDT CPT-31427 Visit 15:58:08 CDT CPT-74606 Visit 12:16:56 CDT CPT-84987A Sono OB comp <14 weeks ([place] Only) - X RAY USE ONLY 12:09:02 CDT CPT-72289 Spec Collection and Handling Fee 10:11:50 C DT CPT-44043 Visit 10:11:49 CDT CPT-J1050 Depo Provera 150 mg (Medroxyprogesterone) 08/30 16:06:30 INDUSTRIAL HYGENIST CPT-26534 Abx/Therapy Injection 16:06:30 INDUSTRIAL HYGENIST CPT-J1050 Depo Provera 150 mg (Medroxyprogesterone) 08/30 15:39:17 INDUSTRIAL HYGENIST CPT-42632 Visit 15:01:38 CDT CPT-30644 Sono OB comp > 14 weeks 16:05:04 CDT 03/18 CPT-27918 Spec Collection and Handling Fee 10:45:40 C DT CPT-51973 Visit 10:45:40 CDT
--- OUTSIDE RECORDS SUMMARY | 2020-01-04 23:55 | XMS REPORT | Clinical Summary ---
Author Author Admin, Giuliana Flores Organization [facility] Address Unknown Phone Unavailable [...] use disorder NEED FOR PROPHYLACTIC VACCINATION WITH EZHWUTX-QWXOQ-I UBELLA (MMR) VACCINE V06.4 Resolved Cintia Pagan APRN Need for prophylactic vaccination with nxymygy-fggxc-mafnjrk [MMR] vaccine Contraceptive management V25.9 Resolved Taiwo [...] gestation of V28.9 Inactive 2017 Nayeli Duke HAND GLASS CUTTER Encounter for unspecified scre ening of mother Abnormal biochemical finding on screening 796.5 20 09/03/10 Active Estela Clifton MUSIC THERAPIST Abnormal finding on antenata l screening Sinusitis, acute frontal 461.1 Active Rosalina Se berg HAND GLASS CUTTER Acute frontal sinusitis GDM, diet controlled 648.80 Active Nayeli Duke HAND GLASS CUTTER Abnormal glucose tolerance complicating , childbirth, or the puerperium, unspecified as to episode of care or not applicable 30 weeks gestation of V28.9 Active 2017 Nayeli Duke HAND GLASS CUTTER Encounter for unspecified scre ening of mother care, delayed ICD-V23.7 Inactive Kristin Pagan HAND GLASS CUTTER NEED FOR PROPHYLACTIC VACCINATION WITH ACDBUAY-RBZGJ-O UBELLA (MMR) VACCINE ICD-V06.4 Inactive Cintia Pagan HAND GLASS CUTTER Contraceptive management ICD-V25.9 Inactive Dionne Stewart MD [...] for gestational DM; O24.420 GLUC OSE BLOOD 53444152555 Active Nayeli Srikanth MCMANUS Active TRUE METRIX GO GLUCOSE METER W/DEVICE KIT Check blood sugars as directed BLOOD GLUCOSE MONITORING SUPPL 23952662651 Active Nayeliespinoza Duke APRN Active LANCETS Test blood sugars as directed for gestational DM O24. 420 LANCETS 69993570496 Active Nayeliespinoza Duke APRN Activ e AUGMENTIN 875-125 MG ORAL TABLET 1 po BID x 10 days 09/06/11 AMOXICILLIN-POT CLAVULANATE 30912628471 No Longer Active Rosalina Bland HAND GLASS CUTTER Active FERROUS SULFATE 325 (65 FE) MG ORAL TABLET 1 tablet daily 5 FERROUS SULFATE 44054386348 Active Estela Clifton LPN Active LORATADINE 10 MG ORAL TABLET 1 tablet by mouth daily LORATADINE 38636619782 Active Dionne Stewart MD Active TYLENOL PM EXTRA STRENGTH 500-25 MG ORAL TABLET PRN 12/31 DIPHENHYDRAMINE-APAP (SLEEP) 18013600261 No Longer Active Dionne Stewart MD Active CONCEPT DHA 53.5-38-1 MG ORAL CAPSULE one tab PO daily JJXDCY-QIUFH-LKBY-FA-OMEGA 3 41325068449 Active Dionne Stewart MD Active FLAGYL 500 MG ORAL TABLET 1 tablet PO BID for 7 days 2 METRONIDAZOLE 45308375252 No Longer Active Dionne Stewart MD Active EQL FORMULA 28-0.8 MG ORAL TABLET 1 tablet daily 1 VIT-FE FUMARATE-FA 19993787064 No Longer Active Dionne Stewart MD A ctive CONCEPT DHA 53.5-38-1 MG ORAL CAPSULE one tab PO daily TEHHGR-SAZLF-OYNV-FA-OMEGA 3 31775731477 No Longer Active Dionne Stewart MD Active CYCLOBENZAPRINE HCL 10 MG ORAL TABLET 1 tablet by mout h three times daily as needed for muscle spasm/pain CYCLOBENZAPRINE HCL 06462401546 No Longer Active Dionne tSewart MD Active TRI-SPRINTEC 0.18/0.215/0.25 MG-35 MCG ORAL TABLET 1 po qd a s directed NORGESTIM-ETH ESTRAD TRIPHASIC 05850878391 N o Longer Active Dionne Stewart MD Active FLAGYL 250 MG ORAL TABLET One tablet three times a day METRONIDAZOLE 68233500824 No Longer Active Cintia Pagan APRN Active [facility] 28-0.8 MG ORAL TABLET 04/10 VIT-FE FUMARATE-FA 83711161592 No Longer Active Dionne Stewart MD Active [facility] 28-0.8 MG ORAL TABLET 04/10 [facility] 28-0.8 MG ORAL TABLET VIT-FE FUMARATE-FA Inactive TRI-SPRINTEC 0.18/0.215/0.25 MG-35 MCG ORAL TABLET 1 po qd a s directed TRI-SPRINTEC 0.18/0.215/0.25 MG-35 MCG ORAL TABL ET 791306 NORGESTIM-ETH ESTRAD TRIPHASIC Inactive CYCLOBENZAPRINE HCL 10 MG ORAL TABLET 1 tablet by mout h three times daily as needed for muscle spasm/pain CYCLOBENZAP RINE HCL 10 MG ORAL TABLET 056739 CYCLOBENZAPRINE HCL Inactive CONCEPT DHA 53.5-38-1 MG ORAL CAPSULE one tab PO daily CONCEPT DHA 53.5-38-1 MG ORAL CAPSULE UPKYAX-ZSDCX-SLIQ-FA-O BILLIE 3 Inactive FLAGYL 500 MG ORAL TABLET 1 tablet PO BID for 7 days 2 FLAGYL 500 MG ORAL TABLET 034824 METRONIDAZOLE Inactive TYLENOL PM EXTRA STRENGTH 500-25 MG ORAL TABLET PRN 12/31 TYLENOL PM EXTRA STRENGTH 500-25 MG ORAL TABLET 2425656 DIPHEN HYDRAMINE-APAP (SLEEP) Inactive FLAGYL 250 MG ORAL TABLET One tablet three times a day FLAGYL 250 MG ORAL TABLET 390308 METRONIDAZOLE Inactive AUGMENTIN 875-125 MG ORAL TABLET 1 po BID x 10 days 09/06/11 AUGMENTIN 875-125 MG ORAL TABLET 331129 AMOXICILLIN-POT CLAVULANATE Inactive Immunizations Vaccine Administration Date [...] 11 .0-15.0 platelet count 226 THOUSAND/UL 10*3/mm3 006-367 3009/05/11 mean platelet volume 10.3 fL 7.5-12.5 Lab [...] SCREEN, RBCW/REFL I , Drug Abuse Pnl 10-50/74624 - Blood bank antibody screen, serum NO ANTIBODIES DETECTED Lab Report: CBC, [id number] Gluc cari-1spec - Hematology leukocyte count, blood [...] N Encounters Code Encounter Date Provider Facility CPT-55259 Level 4 Est. Patient 15:39:57 CDT Nayeli herrera [facility] CPT-43173 Level 3 Est. Patient 17:26:51 CDT Rosalina berg [facility] CPT-06218 Level 3 Est. Patient 17:31:05 SAMPLER FIRST Cintia sommer [facility] Procedures Code Procedure Name Date Entry Date Standard Desc ription CPT-93625 Addl Vx - Ix admin via ID IM or jet injects without counseling by physician 18:18:11 CDT CPT-56839 Boostrix Intramuscular Suspension 5-2.5-18.5 201 04/01/05 18:18:11 CDT CPT-81474 First Vx - Ix admin via ID I M or jet injects without counseling by physician 18:18:11 CDT CPT-19084 Flulaval Intramuscular Injectable 18:18:11 CDT CPT-59283 Fluzone Thim Free 36mo and older 11:16:54 C DT CPT-64837 Tdap 7yrs or > 11:16:53 CDT CPT-01177 Visit 11:16:53 CDT CPT-81707 Visit 11:14:16 CDT CPT-49473 Visit 10:54:00 CDT CPT-66431 Visit 16:24:31 CDT CPT-93865 Sono OB comp > 14 weeks - XRAY USE ONLY 12:01:14 CDT CPT-50516 Visit 15:58:08 CDT CPT-82221 Visit 12:16:56 CDT CPT-19112Z Sono OB comp <14 weeks ([place] Only) - X RAY USE ONLY 12:09:02 CDT CPT-26665 Spec Collection and Handling Fee 10:11:50 C DT CPT-29243 Visit 10:11:49 CDT CPT-J1050 Depo Provera 150 mg (Medroxyprogesterone) 08/30 16:06:30 SAMPLER FIRST CPT-96617 Abx/Therapy Injection 16:06:30 SAMPLER FIRST CPT-J1050 Depo Provera 150 mg (Medroxyprogesterone) 08/30 15:39:17 SAMPLER FIRST CPT-58037 Visit 15:01:38 CDT CPT-49511 Sono OB comp > 14 weeks 16:05:04 CDT 03/18 CPT-61425 Spec Collection and Handling Fee 10:45:40 C DT CPT-45083 Visit 10:45:40 CDT
--- OUTSIDE RECORDS SUMMARY | 2020-01-04 23:56 | XMS REPORT | Clinical Summary ---
[...] of other normal V22.1 Resolved Cintia Pagan MATERIALS INSPECTOR Supervision of other normal Supervision of other [...] use disorder NEED FOR PROPHYLACTIC VACCINATION WITH NNUTQUY-SVINV-K UBELLA (MMR) VACCINE V06.4 Resolved Cintia Pagan APRN Need for prophylactic vaccination with whukdlp-eecky-waebgmu [MMR] vaccine Contraceptive management V25.9 Resolved Taiwo [...] gestation of V28.9 Inactive 2017 Nayeli Duke MATERIALS INSPECTOR Encounter for unspecified scre ening of mother Abnormal biochemical finding on screening 796.5 20 09/03/10 Active Estela Clifton [employer] RAY ELECTRONICS WIRING TECHNICIAN Abnormal finding on antenata l screening Sinusitis, acute frontal 461.1 Active Rosalina berg MATERIALS INSPECTOR Acute frontal sinusitis GDM, diet controlled 648.80 Active Nayeli Duke MATERIALS INSPECTOR Abnormal glucose tolerance complicating , childbirth, or the puerperium, unspecified as to episode of care or not applicable 30 weeks gestation of V28.9 Active 2017 Nayeli Duke MATERIALS INSPECTOR Encounter for unspecified scre ening of mother care, delayed ICD-V23.7 Inactive Kristin Pagan MATERIALS INSPECTOR NEED FOR PROPHYLACTIC VACCINATION WITH RAWSFHP-TMZTX-A UBELLA (MMR) VACCINE ICD-V06.4 Inactive Cintia Pagan MATERIALS INSPECTOR Contraceptive management ICD-V25.9 Inactive Dionne Stewart [...] for gestational DM; O24.420 GLUC OSE BLOOD 33037568930 Active Nayeli Srikanth CHAVEZN Active TRUE METRIX GO GLUCOSE METER W/DEVICE KIT Check blood sugars as directed BLOOD GLUCOSE MONITORING SUPPL 40697472747 Active Nayeli Srikanth YONATHAN Active LANCETS Test blood sugars as directed for gestational DM O24. 420 LANCETS 89879669179 Active Nayeli [place] MATERIALS INSPECTOR Activ e AUGMENTIN 875-125 MG ORAL TABLET 1 po BID x 10 days 09/06/11 AMOXICILLIN-POT CLAVULANATE 05643336284 Active Rosalina Bland MATERIALS INSPECTOR Active FERROUS SULFATE 325 (65 FE) MG ORAL TABLET 1 tablet daily 5 FERROUS SULFATE 68299857930 Active Estela Clifton LPN Active LORATADINE 10 MG ORAL TABLET 1 tablet by mouth daily LORATADINE 87893461341 Active Dionne Stewart MD Active TYLENOL PM EXTRA STRENGTH 500-25 MG ORAL TABLET PRN 12/31 DIPHENHYDRAMINE-APAP (SLEEP) 89603493487 No Longer Active Dionne Stewart MD Active CONCEPT DHA 53.5-38-1 MG ORAL CAPSULE one tab PO daily MSPXKX-PJTAB-EBXX-FA-OMEGA 3 76101726925 Active Dionne Stewart MD Active FLAGYL 500 MG ORAL TABLET 1 tablet PO BID for 7 days 2 METRONIDAZOLE 58896961766 No Longer Active Dionne Stewart MD Active EQL FORMULA 28-0.8 MG ORAL TABLET 1 tablet daily 1 VIT-FE FUMARATE-FA 25340651803 No Longer Active Dionne Stewart MD A ctive CONCEPT DHA 53.5-38-1 MG ORAL CAPSULE one tab PO daily DHMOFJ-YNRUI-RGOY-FA-OMEGA 3 73379627098 No Longer Active Dionne Stewart MD Active CYCLOBENZAPRINE HCL 10 MG ORAL TABLET 1 tablet by mout h three times daily as needed for muscle spasm/pain CYCLOBENZAPRINE HCL 20803475146 No Longer Active Dionne Stewart MD Active TRI-SPRINTEC 0.18/0.215/0.25 MG-35 MCG ORAL TABLET 1 po qd a s directed NORGESTIM-ETH ESTRAD TRIPHASIC 42293187261 N o Longer Active Dionne Stewart MD Active FLAGYL 250 MG ORAL TABLET One tablet three times a day METRONIDAZOLE 22997681068 No Longer Active Cintia Pagan APRN Active [facility] 28-0.8 MG ORAL TABLET 04/10 VIT-FE FUMARATE-FA 25218550392 No Longer Active Dionne Stewart MD Active [facility] 28-0.8 MG ORAL TABLET 04/10 [facility] 28-0.8 MG ORAL TABLET VIT-FE FUMARATE-FA Inactive TRI-SPRINTEC 0.18/0.215/0.25 MG-35 MCG ORAL TABLET 1 po qd a s directed TRI-SPRINTEC 0.18/0.215/0.25 MG-35 MCG ORAL TABL ET 506431 NORGESTIM-ETH ESTRAD TRIPHASIC Inactive CYCLOBENZAPRINE HCL 10 MG ORAL TABLET 1 tablet by mout h three times daily as needed for muscle spasm/pain CYCLOBENZAP RINE HCL 10 MG ORAL TABLET 767250 CYCLOBENZAPRINE HCL Inactive CONCEPT DHA 53.5-38-1 MG ORAL CAPSULE one tab PO daily CONCEPT DHA 53.5-38-1 MG ORAL CAPSULE UNIPAW-THTFP-TOHO-FA-O BILLIE 3 Inactive FLAGYL 500 MG ORAL TABLET 1 tablet PO BID for 7 days 2 FLAGYL 500 MG ORAL TABLET 298800 METRONIDAZOLE Inactive TYLENOL PM EXTRA STRENGTH 500-25 MG ORAL TABLET PRN 12/31 TYLENOL PM EXTRA STRENGTH 500-25 MG ORAL TABLET 8716828 DIPHEN HYDRAMINE-APAP (SLEEP) Inactive FLAGYL 250 MG ORAL TABLET One tablet three times a day FLAGYL 250 MG ORAL TABLET 530922 METRONIDAZOLE Inactive Immunizations Vaccine Administration Date Value Standard [...] 11 .0-15.0 platelet count 226 THOUSAND/UL 10*3/mm3 643-065 6393/05/11 mean platelet volume 10.3 fL 7.5-12.5 Lab [...] SCREEN, RBCW/REFL I , Drug Abuse Pnl 10-50/01417 - Blood bank antibody screen, serum NO ANTIBODIES DETECTED Lab Report: CBC, [id number] Gluc cari-1spec - Hematology leukocyte count, blood [...] N Encounters Code Encounter Date Provider Facility CPT-74776 Level 4 Est. Patient 15:39:57 CDT Nayeli herrera [facility] CPT-22916 Level 3 Est. Patient 17:26:51 CDT Rosalina berg [facility] CPT-98719 Level 3 Est. Patient 17:31:05 AIRPLANE TECHNICIAN Cintia sommer [facility] Procedures Code Procedure Name Date Entry Date Standard Desc ription CPT-97435 Addl Vx - Ix admin via ID IM or jet injects without counseling by physician 18:18:11 CDT CPT-83200 Boostrix Intramuscular Suspension 5-2.5-18.5 201 04/01/05 18:18:11 CDT CPT-40773 First Vx - Ix admin via ID I M or jet injects without counseling by physician 18:18:11 CDT CPT-90991 Flulaval Intramuscular Injectable 18:18:11 CDT CPT-96743 Fluzone Thim Free 36mo and older 11:16:54 C DT CPT-93173 Tdap 7yrs or > 11:16:53 CDT CPT-74137 Visit 11:16:53 CDT CPT-25397 Visit 11:14:16 CDT CPT-35157 Visit 10:54:00 CDT CPT-69760 Visit 16:24:31 CDT CPT-45104 Sono OB comp > 14 weeks - XRAY USE ONLY 12:01:14 CDT CPT-88116 Visit 15:58:08 CDT CPT-48345 Visit 12:16:56 CDT CPT-23809O Sono OB comp <14 weeks ([place] Only) - X RAY USE ONLY 12:09:02 CDT CPT-28080 Spec Collection and Handling Fee 10:11:50 C DT CPT-35842 Visit 10:11:49 CDT CPT-J1050 Depo Provera 150 mg (Medroxyprogesterone) 08/30 16:06:30 AIRPLANE TECHNICIAN CPT-71433 Abx/Therapy Injection 16:06:30 AIRPLANE TECHNICIAN CPT-J1050 Depo Provera 150 mg (Medroxyprogesterone) 08/30 15:39:17 AIRPLANE TECHNICIAN CPT-28403 Visit 15:01:38 CDT CPT-59970 Sono OB comp > 14 weeks 16:05:04 CDT 03/18 CPT-45726 Spec Collection and Handling Fee 10:45:40 C DT CPT-18224 Visit 10:45:40 CDT
--- OUTSIDE RECORDS SUMMARY | 2020-01-04 23:56 | XMS REPORT | Clinical Summary ---
Author Author Admin, Giuliana Flores Organization [facility] Address Unknown Phone Unavailable Allergies, Adverse Reactions, [...] use disorder NEED FOR PROPHYLACTIC VACCINATION WITH SBQLKSZ-HDQIL-L UBELLA (MMR) VACCINE V06.4 Resolved Cintia Pagan APRN Need for prophylactic vaccination with xpibkbd-bytac-cbaubum [MMR] vaccine Contraceptive management V25.9 Resolved Taiwo [...] of mother 29 weeks gestation of V28.9 Active 2017 Dionne Stewart MD Encounter for unspecified scre ening of mother Abnormal biochemical finding on screening 796.5 20 09/03/10 Active Estela Clifton SUPERVISOR SLASHING DEPARTMENT Abnormal finding on antenata l screening Sinusitis, acute frontal 461.1 Active Rosalina berg PAYABLE MANAGER Acute frontal sinusitis care, delayed ICD-V23.7 Inactive Kristin Pagan PAYABLE MANAGER NEED FOR PROPHYLACTIC VACCINATION WITH KSEELBY-YWYKD-L UBELLA (MMR) VACCINE ICD-V06.4 Inactive Cintia Pagan PAYABLE MANAGER Contraceptive management ICD-V25.9 Inactive Dionne Stewart MD follow-up, routine ICD-V24.2 Inacti ve Dionne Stewart MD Vaginal discharge ICD-623.5 Inactive Dionne spencer MD Medication List Medication Instructions Start Date Stop Date Generic Name NDC Status Provider Patient Instruction AUGMENTIN 875-125 MG ORAL TABLET 1 po BID x 10 days 09/06/11 AMOXICILLIN-POT CLAVULANATE 02621005059 Active Rosalina Edwina PAYABLE MANAGER Active FERROUS SULFATE 325 (65 FE) MG ORAL TABLET 1 tablet daily 5 FERROUS SULFATE 05512518427 Active sEtela Clifton SUPERVISOR SLASHING DEPARTMENT Active LORATADINE 10 MG ORAL TABLET 1 tablet by mouth daily LORATADINE 89956425506 Active Dionne Stewart MD Active TYLENOL PM EXTRA STRENGTH 500-25 MG ORAL TABLET PRN 12/31 DIPHENHYDRAMINE-APAP (SLEEP) 30510330495 No Longer Active Dionne Stewart MD Active CONCEPT DHA 53.5-38-1 MG ORAL CAPSULE one tab PO daily VKJQTJ-AGYGP-EHPZ-FA-OMEGA 3 33262331512 Active Dionne Stewart MD Active FLAGYL 500 MG ORAL TABLET 1 tablet PO BID for 7 days 2 METRONIDAZOLE 23029075166 No Longer Active Dionne Stewart MD Active EQL FORMULA 28-0.8 MG ORAL TABLET 1 tablet daily 1 VIT-FE FUMARATE-FA 92357267008 No Longer Active Dionne Stewart MD A ctive CONCEPT DHA 53.5-38-1 MG ORAL CAPSULE one tab PO daily TPMUWR-GNPQH-USIU-FA-OMEGA 3 95375068643 No Longer Active Dionne Stewart MD Active CYCLOBENZAPRINE HCL 10 MG ORAL TABLET 1 tablet by mout h three times daily as needed for muscle spasm/pain CYCLOBENZAPRINE HCL 33731868251 No Longer Active Dionne Stewart MD Active TRI-SPRINTEC 0.18/0.215/0.25 MG-35 MCG ORAL TABLET 1 po qd a s directed NORGESTIM-ETH ESTRAD TRIPHASIC 47368478112 N o Longer Active Dionne Stewart MD Active FLAGYL 250 MG ORAL TABLET One tablet three times a day METRONIDAZOLE 81926295588 No Longer Active Cintia Pagan APRN Active [facility] 28-0.8 MG ORAL TABLET 04/10 VIT-FE FUMARATE-FA 57685891746 No Longer Active Dionne Stewart MD Active [facility] 28-0.8 MG ORAL TABLET 04/10 [facility] 28-0.8 MG ORAL TABLET VIT-FE FUMARATE-FA Inactive TRI-SPRINTEC 0.18/0.215/0.25 MG-35 MCG ORAL TABLET 1 po qd a s directed TRI-SPRINTEC 0.18/0.215/0.25 MG-35 MCG ORAL TABL ET 168052 NORGESTIM-ETH ESTRAD TRIPHASIC Inactive CYCLOBENZAPRINE HCL 10 MG ORAL TABLET 1 tablet by mout h three times daily as needed for muscle spasm/pain CYCLOBENZAP RINE HCL 10 MG ORAL TABLET 945471 CYCLOBENZAPRINE HCL Inactive CONCEPT DHA 53.5-38-1 MG ORAL CAPSULE one tab PO daily CONCEPT DHA 53.5-38-1 MG ORAL CAPSULE ZBVGQN-SKMDI-OHLO-FA-O BILLIE 3 Inactive FLAGYL 500 MG ORAL TABLET 1 tablet PO BID for 7 days 2 FLAGYL 500 MG ORAL TABLET 211282 METRONIDAZOLE Inactive TYLENOL PM EXTRA STRENGTH 500-25 MG ORAL TABLET PRN 12/31 TYLENOL PM EXTRA STRENGTH 500-25 MG ORAL TABLET 6471297 DIPHEN HYDRAMINE-APAP (SLEEP) Inactive FLAGYL 250 MG ORAL TABLET One tablet three times a day FLAGYL 250 MG ORAL TABLET 192105 METRONIDAZOLE Inactive Immunizations Vaccine Administration Date Value Standard Koko cription hepatitis B vaccine series yes hepat itis B vaccine, unspecified formulation hepatitis B vaccine series no hepat itis B vaccine, unspecified formulation Vital Signs Date Name Value Unit Range Description blood pressure, diastolic 57 mm[Hg] BP miramontes [...] 11 .0-15.0 platelet count 226 THOUSAND/UL 10*3/mm3 387-238 4180/05/11 mean platelet volume 10.3 fL 7.5-12.5 Lab [...] SCREEN, RBCW/REFL I , Drug Abuse Pn 10-50/22405 - Blood bank antibody screen, serum NO ANTIBODIES DETECTED Lab Report: CBC, [id number] Gluc cari-1spec - Hematology leukocyte count, blood [...] N Encounters Code Encounter Date Provider Facility CPT-42021 Level 3 Est. Patient 17:26:51 CDT Rosalina berg [facility] CPT-34640 Level 3 Est. Patient 17:31:05 LANDSCAPE MANAGER Cintia sommer [facility] Procedures Code Procedure Name Date Entry Date Standard Desc ription CPT-73423 Addl Vx - Ix admin via ID IM or jet injects without counseling by physician 18:18:11 CDT CPT-17603 Boostrix Intramuscular Suspension 5-2.5-18.5 201 04/01/05 18:18:11 CDT CPT-77569 First Vx - Ix admin via ID I M or jet injects without counseling by physician 18:18:11 CDT CPT-97494 Flulaval Intramuscular Injectable 18:18:11 CDT CPT-80501 Fluzone Thim Free 36mo and older 11:16:54 C DT CPT-37761 Tdap 7yrs or > 11:16:53 CDT CPT-43348 Visit 11:16:53 CDT CPT-32963 Visit 11:14:16 CDT CPT-59672 Visit 10:54:00 CDT CPT-86028 Visit 16:24:31 CDT CPT-80274 Sono OB comp > 14 weeks - XRAY USE ONLY 12:01:14 CDT CPT-82905 Visit 15:58:08 CDT CPT-88962 Visit 12:16:56 CDT CPT-22787Y Sono OB comp <14 weeks ([place] Only) - X RAY USE ONLY 12:09:02 CDT CPT-28416 Spec Collection and Handling Fee 10:11:50 C DT CPT-10877 Visit 10:11:49 CDT CPT-J1050 Depo Provera 150 mg (Medroxyprogesterone) 08/30 16:06:30 LANDSCAPE MANAGER CPT-38302 Abx/Therapy Injection 16:06:30 LANDSCAPE MANAGER CPT-J1050 Depo Provera 150 mg (Medroxyprogesterone) 08/30 15:39:17 LANDSCAPE MANAGER CPT-63612 Visit 15:01:38 CDT CPT-20058 Sono OB comp > 14 weeks 16:05:04 CDT 03/18 CPT-03972 Spec Collection and Handling Fee 10:45:40 C DT CPT-45328 Visit 10:45:40 CDT
--- OUTSIDE RECORDS SUMMARY | 2020-01-04 23:56 | XMS REPORT | Clinical Summary ---
Author Author Admin, Giuliana Flores Organization [facility] Address Unknown Phone Unavailable Allergies, [...] use disorder NEED FOR PROPHYLACTIC VACCINATION WITH BSTIUBI-RCIXB-Z UBELLA (MMR) VACCINE V06.4 Resolved Cintia Pagan APRN Need for prophylactic vaccination with etcrjob-zwmxa-fgaihxo [MMR] vaccine Contraceptive management V25.9 Resolved Taiwo [...] gestation of V28.9 Inactive 2017 Nayeli Duke GARDENER FLORIST Encounter for unspecified scre ening of mother Abnormal biochemical finding on screening 796.5 20 09/03/10 Active Estela Clifton CAPTAIN AIRLINE PILOT Abnormal finding on antenata l screening Sinusitis, acute frontal 461.1 Active Rosalina Se berg GARDENER FLORIST Acute frontal sinusitis GDM, diet controlled 648.80 Active Nayeli Duke GARDENER FLORIST Abnormal glucose tolerance complicating , childbirth, or the puerperium, unspecified as to episode of care or not applicable 30 weeks gestation of V28.9 Active 2017 Nayeli Duke GARDENER FLORIST Encounter for unspecified scre ening of mother care, delayed ICD-V23.7 Inactive Kristin Pagan GARDENER FLORIST NEED FOR PROPHYLACTIC VACCINATION WITH MNYDORS-FKZYA-E UBELLA (MMR) VACCINE ICD-V06.4 Inactive Cintia Pagan GARDENER FLORIST Contraceptive management ICD-V25.9 Inactive Dionne Stewart MD [...] for gestational DM; O24.420 GLUC OSE BLOOD 02011693522 Active Nayeli Srikanth MCMANUS Active TRUE METRIX GO GLUCOSE METER W/DEVICE KIT Check blood sugars as directed BLOOD GLUCOSE MONITORING SUPPL 89663969890 Active Nayeli Srikanth MCMANUS Active LANCETS Test blood sugars as directed for gestational DM O24. 420 LANCETS 09205267083 Active Nayeli Srikanth CHAVEZN Activ e AUGMENTIN 875-125 MG ORAL TABLET 1 po BID x 10 days 09/06/11 AMOXICILLIN-POT CLAVULANATE 46722789753 Active Rosalina Bland GARDENER FLORIST Active FERROUS SULFATE 325 (65 FE) MG ORAL TABLET 1 tablet daily 5 FERROUS SULFATE 98992184006 Active Estela Clifton CAPTAIN AIRLINE PILOT Active LORATADINE 10 MG ORAL TABLET 1 tablet by mouth daily LORATADINE 59861587969 Active Dionne Stewart MD Active TYLENOL PM EXTRA STRENGTH 500-25 MG ORAL TABLET PRN 12/31 DIPHENHYDRAMINE-APAP (SLEEP) 83333989213 No Longer Active Dionne Stewart MD Active CONCEPT DHA 53.5-38-1 MG ORAL CAPSULE one tab PO daily BCZBIB-UWTAJ-MMUY-FA-OMEGA 3 10377130768 Active Dionne Stewart MD Active FLAGYL 500 MG ORAL TABLET 1 tablet PO BID for 7 days 2 METRONIDAZOLE 35803095103 No Longer Active Dionne Stewart MD Active EQL FORMULA 28-0.8 MG ORAL TABLET 1 tablet daily 1 VIT-FE FUMARATE-FA 46917448682 No Longer Active Dionne Stewart MD A ctive CONCEPT DHA 53.5-38-1 MG ORAL CAPSULE one tab PO daily XTXSXM-NWLTZ-AURY-FA-OMEGA 3 38709043401 No Longer Active Dionne Stewart MD Active CYCLOBENZAPRINE HCL 10 MG ORAL TABLET 1 tablet by mout h three times daily as needed for muscle spasm/pain CYCLOBENZAPRINE HCL 45780036372 No Longer Active Dionne Stewart MD Active TRI-SPRINTEC 0.18/0.215/0.25 MG-35 MCG ORAL TABLET 1 po qd a s directed NORGESTIM-ETH ESTRAD TRIPHASIC 61872834701 N o Longer Active Dionne Stewart MD Active FLAGYL 250 MG ORAL TABLET One tablet three times a day METRONIDAZOLE 55293696540 No Longer Active Cintia Pagan APRN Active [facility] 28-0.8 MG ORAL TABLET 04/10 VIT-FE FUMARATE-FA 45003721005 No Longer Active Dionne Stewart MD Active [facility] 28-0.8 MG ORAL TABLET 04/10 [facility] 28-0.8 MG ORAL TABLET VIT-FE FUMARATE-FA Inactive TRI-SPRINTEC 0.18/0.215/0.25 MG-35 MCG ORAL TABLET 1 po qd a s directed TRI-SPRINTEC 0.18/0.215/0.25 MG-35 MCG ORAL TABL ET 950844 NORGESTIM-ETH ESTRAD TRIPHASIC Inactive CYCLOBENZAPRINE HCL 10 MG ORAL TABLET 1 tablet by mout h three times daily as needed for muscle spasm/pain CYCLOBENZAP RINE HCL 10 MG ORAL TABLET 760117 CYCLOBENZAPRINE HCL Inactive CONCEPT DHA 53.5-38-1 MG ORAL CAPSULE one tab PO daily CONCEPT DHA 53.5-38-1 MG ORAL CAPSULE QDJHUJ-CUBJD-VBNB-FA-O BILLIE 3 Inactive FLAGYL 500 MG ORAL TABLET 1 tablet PO BID for 7 days 2 FLAGYL 500 MG ORAL TABLET 103754 METRONIDAZOLE Inactive TYLENOL PM EXTRA STRENGTH 500-25 MG ORAL TABLET PRN 12/31 TYLENOL PM EXTRA STRENGTH 500-25 MG ORAL TABLET 3178285 DIPHEN HYDRAMINE-APAP (SLEEP) Inactive FLAGYL 250 MG ORAL TABLET One tablet three times a day FLAGYL 250 MG ORAL TABLET 268350 METRONIDAZOLE Inactive Immunizations Vaccine Administration Date Value [...] 11 .0-15.0 platelet count 226 THOUSAND/UL 10*3/mm3 594-700 0488/05/11 mean platelet volume 10.3 fL 7.5-12.5 Lab [...] SCREEN, RBCW/REFL I , Drug Abuse Pnl -50/87618 - Blood bank antibody screen, serum NO ANTIBODIES DETECTED Lab Report: CBC, [id number] Gluc cari-1spec - Hematology leukocyte count, blood [...] N Encounters Code Encounter Date Provider Facility CPT-18099 Level 4 Est. Patient 15:39:57 CDT Nayeli herrera [facility] CPT-32426 Level 3 Est. Patient 17:26:51 CDT Rosalina berg [facility] CPT-40019 Level 3 Est. Patient 17:31:05 TURN SUPERVISOR Cintia sommer [facility] Procedures Code Procedure Name Date Entry Date Standard Desc ription CPT-04422 Addl Vx - Ix admin via ID IM or jet injects without counseling by physician 18:18:11 CDT CPT-84558 Boostrix Intramuscular Suspension 5-2.5-18.5 201 04/01/05 18:18:11 CDT CPT-34284 First Vx - Ix admin via ID I M or jet injects without counseling by physician 18:18:11 CDT CPT-19397 Flulaval Intramuscular Injectable 18:18:11 CDT CPT-80585 Fluzone Thim Free 36mo and older 11:16:54 C DT CPT-99205 Tdap 7yrs or > 11:16:53 CDT CPT-57566 Visit 11:16:53 CDT CPT-74657 Visit 11:14:16 CDT CPT-59768 Visit 10:54:00 CDT CPT-21062 Visit 16:24:31 CDT CPT-84755 Sono OB comp > 14 weeks - XRAY USE ONLY 12:01:14 CDT CPT-46209 Visit 15:58:08 CDT CPT-11141 Visit 12:16:56 CDT CPT-88628D Sono OB comp <14 weeks ([place] Only) - X RAY USE ONLY 12:09:02 CDT CPT-61638 Spec Collection and Handling Fee 10:11:50 C DT CPT-03307 Visit 10:11:49 CDT CPT-J1050 Depo Provera 150 mg (Medroxyprogesterone) 08/30 16:06:30 TURN SUPERVISOR CPT-90640 Abx/Therapy Injection 16:06:30 TURN SUPERVISOR CPT-J1050 Depo Provera 150 mg (Medroxyprogesterone) 08/30 15:39:17 TURN SUPERVISOR CPT-65414 Visit 15:01:38 CDT CPT-54573 Sono OB comp > 14 weeks 16:05:04 CDT 03/18 CPT-62274 Spec Collection and Handling Fee 10:45:40 C DT CPT-26419 Visit 10:45:40 CDT
--- OUTSIDE RECORDS SUMMARY | 2020-01-04 23:56 | XMS REPORT | Clinical Summary ---
Author Author Admin, Giuliana Flores Organization [facility] Address Unknown Phone Unavailable Allergies, Adverse [...] use disorder NEED FOR PROPHYLACTIC VACCINATION WITH RMXJVQO-USZCI-J UBELLA (MMR) VACCINE V06.4 Resolved Cintia Pagan APRN Need for prophylactic vaccination with hasdgng-khuqc-zokwazy [MMR] vaccine Contraceptive management V25.9 Resolved Taiwo [...] gestation of V28.9 Inactive 2017 Nayeli Duke CHAIRMAN CEO Encounter for unspecified scre ening of mother Abnormal biochemical finding on screening 796.5 20 09/03/10 Active Estela Clifton VAN DRIVER HELPER Abnormal finding on antenata l screening Sinusitis, acute frontal 461.1 Active Rosalina Se berg CHAIRMAN CEO Acute frontal sinusitis GDM, diet controlled 648.80 Active Nayeli Duke CHAIRMAN CEO Abnormal glucose tolerance complicating , childbirth, or the puerperium, unspecified as to episode of care or not applicable 30 weeks gestation of V28.9 Active 2017 Nayeli Duke CHAIRMAN CEO Encounter for unspecified scre ening of mother care, delayed ICD-V23.7 Inactive Kristin Pagan CHAIRMAN CEO NEED FOR PROPHYLACTIC VACCINATION WITH JHHLDXJ-OBCLM-O UBELLA (MMR) VACCINE ICD-V06.4 Inactive Cintia Pagan CHAIRMAN CEO Contraceptive management ICD-V25.9 Inactive Dionne Stewart MD [...] for gestational DM; O24.420 GLUC OSE BLOOD 37880759216 Active Nayeli Srikanth MCMANUS Active TRUE METRIX GO GLUCOSE METER W/DEVICE KIT Check blood sugars as directed BLOOD GLUCOSE MONITORING SUPPL 57952559669 Active Nayeli Srikanth MCMANUS Active LANCETS Test blood sugars as directed for gestational DM O24. 420 LANCETS 42852726253 Active Nayeli Srikanth CHAVEZN Activ e AUGMENTIN 875-125 MG ORAL TABLET 1 po BID x 10 days 09/06/11 AMOXICILLIN-POT CLAVULANATE 66026998830 Active Rosalina Bland CHAIRMAN CEO Active FERROUS SULFATE 325 (65 FE) MG ORAL TABLET 1 tablet daily 5 FERROUS SULFATE 73874021934 Active Estela Clifton VAN DRIVER HELPER Active LORATADINE 10 MG ORAL TABLET 1 tablet by mouth daily LORATADINE 31812531825 Active Dionne Stewart MD Active TYLENOL PM EXTRA STRENGTH 500-25 MG ORAL TABLET PRN 12/31 DIPHENHYDRAMINE-APAP (SLEEP) 78068985714 No Longer Active Dionne Stewart MD Active CONCEPT DHA 53.5-38-1 MG ORAL CAPSULE one tab PO daily NSOTWU-WSLEL-PVWO-FA-OMEGA 3 59622241754 Active Dionne Stewart MD Active FLAGYL 500 MG ORAL TABLET 1 tablet PO BID for 7 days 2 METRONIDAZOLE 05841517566 No Longer Active Dionne Stewart MD Active EQL FORMULA 28-0.8 MG ORAL TABLET 1 tablet daily 1 VIT-FE FUMARATE-FA 56705286126 No Longer Active Dionne Stewart MD A ctive CONCEPT DHA 53.5-38-1 MG ORAL CAPSULE one tab PO daily DQGORL-MQYSU-UECO-FA-OMEGA 3 92191150648 No Longer Active Dionne Stewart MD Active CYCLOBENZAPRINE HCL 10 MG ORAL TABLET 1 tablet by mout h three times daily as needed for muscle spasm/pain CYCLOBENZAPRINE HCL 37259597668 No Longer Active Dionne Stewart MD Active TRI-SPRINTEC 0.18/0.215/0.25 MG-35 MCG ORAL TABLET 1 po qd a s directed NORGESTIM-ETH ESTRAD TRIPHASIC 60583043177 N o Longer Active Dionne Stewart MD Active FLAGYL 250 MG ORAL TABLET One tablet three times a day METRONIDAZOLE 96725830955 No Longer Active Cintia Pagan APRN Active [facility] 28-0.8 MG ORAL TABLET 04/10 VIT-FE FUMARATE-FA 41947841865 No Longer Active Dionne Stewart MD Active [facility] 28-0.8 MG ORAL TABLET 04/10 [facility] 28-0.8 MG ORAL TABLET VIT-FE FUMARATE-FA Inactive TRI-SPRINTEC 0.18/0.215/0.25 MG-35 MCG ORAL TABLET 1 po qd a s directed TRI-SPRINTEC 0.18/0.215/0.25 MG-35 MCG ORAL TABL ET 920615 NORGESTIM-ETH ESTRAD TRIPHASIC Inactive CYCLOBENZAPRINE HCL 10 MG ORAL TABLET 1 tablet by mout h three times daily as needed for muscle spasm/pain CYCLOBENZAP RINE HCL 10 MG ORAL TABLET 524072 CYCLOBENZAPRINE HCL Inactive CONCEPT DHA 53.5-38-1 MG ORAL CAPSULE one tab PO daily CONCEPT DHA 53.5-38-1 MG ORAL CAPSULE KCRZVG-UYLCD-TEGM-FA-O BILLIE 3 Inactive FLAGYL 500 MG ORAL TABLET 1 tablet PO BID for 7 days 2 FLAGYL 500 MG ORAL TABLET 502677 METRONIDAZOLE Inactive TYLENOL PM EXTRA STRENGTH 500-25 MG ORAL TABLET PRN 12/31 TYLENOL PM EXTRA STRENGTH 500-25 MG ORAL TABLET 1686697 DIPHEN HYDRAMINE-APAP (SLEEP) Inactive FLAGYL 250 MG ORAL TABLET One tablet three times a day FLAGYL 250 MG ORAL TABLET 657370 METRONIDAZOLE Inactive Immunizations Vaccine Administration Date Value [...] 11 .0-15.0 platelet count 226 THOUSAND/UL 10*3/mm3 978-168 0336/05/11 mean platelet volume 10.3 fL 7.5-12.5 Lab [...] SCREEN, RBCW/REFL I , Drug Abuse Pnl -50/27355 - Blood bank antibody screen, serum NO ANTIBODIES DETECTED Lab Report: CBC, [id number] Gluc cari-1spec - Hematology leukocyte count, blood [...] N Encounters Code Encounter Date Provider Facility CPT-84791 Level 4 Est. Patient 15:39:57 CDT Nayeli herrera [facility] CPT-45925 Level 3 Est. Patient 17:26:51 CDT Rosalina berg [facility] CPT-03337 Level 3 Est. Patient 17:31:05 DRAFTER SEISMOGRAPH Cintia sommer [facility] Procedures Code Procedure Name Date Entry Date Standard Desc ription CPT-42580 Addl Vx - Ix admin via ID IM or jet injects without counseling by physician 18:18:11 CDT CPT-14480 Boostrix Intramuscular Suspension 5-2.5-18.5 201 04/01/05 18:18:11 CDT CPT-27253 First Vx - Ix admin via ID I M or jet injects without counseling by physician 18:18:11 CDT CPT-46241 Flulaval Intramuscular Injectable 18:18:11 CDT CPT-88558 Fluzone Thim Free 36mo and older 11:16:54 C DT CPT-63230 Tdap 7yrs or > 11:16:53 CDT CPT-80845 Visit 11:16:53 CDT CPT-01907 Visit 11:14:16 CDT CPT-75673 Visit 10:54:00 CDT CPT-57822 Visit 16:24:31 CDT CPT-15720 Sono OB comp > 14 weeks - XRAY USE ONLY 12:01:14 CDT CPT-43065 Visit 15:58:08 CDT CPT-55330 Visit 12:16:56 CDT CPT-62863E Sono OB comp <14 weeks ([place] Only) - X RAY USE ONLY 12:09:02 CDT CPT-01124 Spec Collection and Handling Fee 10:11:50 C DT CPT-69145 Visit 10:11:49 CDT CPT-J1050 Depo Provera 150 mg (Medroxyprogesterone) 08/30 16:06:30 DRAFTER SEISMOGRAPH CPT-19524 Abx/Therapy Injection 16:06:30 DRAFTER SEISMOGRAPH CPT-J1050 Depo Provera 150 mg (Medroxyprogesterone) 08/30 15:39:17 DRAFTER SEISMOGRAPH CPT-22039 Visit 15:01:38 CDT CPT-30489 Sono OB comp > 14 weeks 16:05:04 CDT 03/18 CPT-00399 Spec Collection and Handling Fee 10:45:40 C DT CPT-13352 Visit 10:45:40 CDT
--- OUTSIDE RECORDS SUMMARY | 2020-01-04 23:56 | XMS REPORT | Clinical Summary ---
[...] use disorder NEED FOR PROPHYLACTIC VACCINATION WITH ZBWAYFQ-WTAKG-W UBELLA (MMR) VACCINE V06.4 Resolved Cintia Pagan APRN Need for prophylactic vaccination with acqzfij-eshaq-ikosxgz [MMR] vaccine Contraceptive management V25.9 Resolved Taiwo [...] screening 796.5 20 09/03/10 Active Estela Clifton COAT PRESSER Abnormal finding on antenata l screening Sinusitis, acute frontal 461.1 Active Rosalina berg GENDER STUDIES PROFESSOR Acute frontal sinusitis care, delayed ICD-V23.7 Inactive Kristin Pagan GENDER STUDIES PROFESSOR NEED FOR PROPHYLACTIC VACCINATION WITH IEUSUUT-ZXAEH-D UBELLA (MMR) VACCINE ICD-V06.4 Inactive Cintia Pagan GENDER STUDIES PROFESSOR Contraceptive management ICD-V25.9 Inactive Dionne Stewart MD follow-up, routine ICD-V24.2 Inacti ve Dionne Stewart MD Vaginal discharge ICD-623.5 Inactive Dionne spencer MD Medication List Medication Instructions Start Date Stop Date Generic Name NDC Status Provider Patient Instruction AUGMENTIN 875-125 MG ORAL TABLET 1 po BID x 10 days 09/06/11 AMOXICILLIN-POT CLAVULANATE 07605719846 Active Rosalina Edwina GENDER STUDIES PROFESSOR Active FERROUS SULFATE 325 (65 FE) MG ORAL TABLET 1 tablet daily 5 FERROUS SULFATE 23854706335 Active Estela Clifton COAT PRESSER Active LORATADINE 10 MG ORAL TABLET 1 tablet by mouth daily LORATADINE 11139857031 Active Dionne Stewart MD Active TYLENOL PM EXTRA STRENGTH 500-25 MG ORAL TABLET PRN 12/31 DIPHENHYDRAMINE-APAP (SLEEP) 09615534589 No Longer Active Dionne Stewart MD Active CONCEPT DHA 53.5-38-1 MG ORAL CAPSULE one tab PO daily ENCEDN-DMFPT-NIPH-FA-OMEGA 3 78854560212 Active Dionne Stewart MD Active FLAGYL 500 MG ORAL TABLET 1 tablet PO BID for 7 days 2 METRONIDAZOLE 23831216918 No Longer Active Dionne Stewart MD Active EQL FORMULA 28-0.8 MG ORAL TABLET 1 tablet daily 1 VIT-FE FUMARATE-FA 27062130546 No Longer Active Dionne Stewart MD A ctive CONCEPT DHA 53.5-38-1 MG ORAL CAPSULE one tab PO daily GTVOQK-LOPBE-JTFW-FA-OMEGA 3 51220070109 No Longer Active Dionne Stewart MD Active CYCLOBENZAPRINE HCL 10 MG ORAL TABLET 1 tablet by mout h three times daily as needed for muscle spasm/pain CYCLOBENZAPRINE HCL 47137546369 No Longer Active Dionne Stewart MD Active TRI-SPRINTEC 0.18/0.215/0.25 MG-35 MCG ORAL TABLET 1 po qd a s directed NORGESTIM-ETH ESTRAD TRIPHASIC 23402352745 N o Longer Active Dionne Stewart MD Active FLAGYL 250 MG ORAL TABLET One tablet three times a day METRONIDAZOLE 18921590543 No Longer Active Cintia Pagan APRN Active [facility] 28-0.8 MG ORAL TABLET 04/10 VIT-FE FUMARATE-FA 92826289109 No Longer Active Dionne Stewart MD Active [facility] 28-0.8 MG ORAL TABLET 04/10 [facility] 28-0.8 MG ORAL TABLET VIT-FE FUMARATE-FA Inactive TRI-SPRINTEC 0.18/0.215/0.25 MG-35 MCG ORAL TABLET 1 po qd a s directed TRI-SPRINTEC 0.18/0.215/0.25 MG-35 MCG ORAL TABL ET 507051 NORGESTIM-ETH ESTRAD TRIPHASIC Inactive CYCLOBENZAPRINE HCL 10 MG ORAL TABLET 1 tablet by mout h three times daily as needed for muscle spasm/pain CYCLOBENZAP RINE HCL 10 MG ORAL TABLET 671251 CYCLOBENZAPRINE HCL Inactive CONCEPT DHA 53.5-38-1 MG ORAL CAPSULE one tab PO daily CONCEPT DHA 53.5-38-1 MG ORAL CAPSULE FAWDXK-BBPNF-WDEH-FA-O BILLIE 3 Inactive FLAGYL 500 MG ORAL TABLET 1 tablet PO BID for 7 days 2 FLAGYL 500 MG ORAL TABLET 572865 METRONIDAZOLE Inactive TYLENOL PM EXTRA STRENGTH 500-25 MG ORAL TABLET PRN 12/31 TYLENOL PM EXTRA STRENGTH 500-25 MG ORAL TABLET 9803492 DIPHEN HYDRAMINE-APAP (SLEEP) Inactive FLAGYL 250 MG ORAL TABLET One tablet three times a day FLAGYL 250 MG ORAL TABLET 625725 METRONIDAZOLE Inactive Immunizations Vaccine Administration Date Value [...] 11 .0-15.0 platelet count 226 THOUSAND/UL 10*3/mm3 098-768 1447/05/11 mean platelet volume 10.3 fL 7.5-12.5 Lab [...] SCREEN, RBCW/REFL I , Drug Abuse Pn 10-50/03615 - Blood bank antibody screen, serum NO ANTIBODIES DETECTED Lab Report: CBC, [id number] Gluc cari-1spec - Hematology leukocyte count, blood [...] N Encounters Code Encounter Date Provider Facility CPT-75569 Level 3 Est. Patient 17:26:51 CDT Rosalina berg [facility] CPT-69811 Level 3 Est. Patient 17:31:05 UTILITIES GROUND WORKER Cintia sommer [facility] Procedures Code Procedure Name Date Entry Date Standard Desc ription CPT-80767 Addl Vx - Ix admin via ID IM or jet injects without counseling by physician 18:18:11 CDT CPT-15763 Boostrix Intramuscular Suspension 5-2.5-18.5 201 04/01/05 18:18:11 CDT CPT-04685 First Vx - Ix admin via ID I M or jet injects without counseling by physician 18:18:11 CDT CPT-62218 Flulaval Intramuscular Injectable 18:18:11 CDT CPT-66734 Fluzone Thim Free 36mo and older 11:16:54 C DT CPT-14660 Tdap 7yrs or > 11:16:53 CDT CPT-41614 Visit 11:16:53 CDT CPT-10859 Visit 11:14:16 CDT CPT-47647 Visit 10:54:00 CDT CPT-47783 Visit 16:24:31 CDT CPT-82757 Sono OB comp > 14 weeks - XRAY USE ONLY 12:01:14 CDT CPT-61646 Visit 15:58:08 CDT CPT-82610 Visit 12:16:56 CDT CPT-12429Y Sono OB comp <14 weeks (Pat Only) - X RAY USE ONLY 12:09:02 CDT CPT-44821 Spec Collection and Handling Fee 10:11:50 C DT CPT-31126 Visit 10:11:49 CDT CPT-J1050 Depo Provera 150 mg (Medroxyprogesterone) 08/30 16:06:30 UTILITIES GROUND WORKER CPT-26919 Abx/Therapy Injection 16:06:30 UTILITIES GROUND WORKER CPT-J1050 Depo Provera 150 mg (Medroxyprogesterone) 08/30 15:39:17 UTILITIES GROUND WORKER CPT-65684 Visit 15:01:38 CDT CPT-20387 Sono OB comp > 14 weeks 16:05:04 CDT 03/18 CPT-20418 Spec Collection and Handling Fee 10:45:40 C DT CPT-98873 Visit 10:45:40 CDT
--- OUTSIDE RECORDS SUMMARY | 2020-01-04 23:57 | XMS REPORT | Clinical Summary ---
Author Author Admin, Giuliana Flores Organization [facility] Address Unknown Phone Unavailable Allergies, Adverse Reactions, [...] use disorder NEED FOR PROPHYLACTIC VACCINATION WITH SSDRJCM-TTUKK-C UBELLA (MMR) VACCINE V06.4 Resolved Cintia Pagan APRN Need for prophylactic vaccination with yybewgz-agxik-kysszin [MMR] vaccine Contraceptive management V25.9 Resolved Taiwo [...] screening 796.5 20 09/03/10 Active Estela Clifton BODY TEAM MEMBER Abnormal finding on antenata l screening Sinusitis, acute frontal 461.1 Active Rosalina begr CONSUMER MARKETING SPECIALIST Acute frontal sinusitis care, delayed ICD-V23.7 Inactive Kristin Pagan CONSUMER MARKETING SPECIALIST NEED FOR PROPHYLACTIC VACCINATION WITH OVDMWST-ZPXWR-Y UBELLA (MMR) VACCINE ICD-V06.4 Inactive Cintia Pagan CONSUMER MARKETING SPECIALIST Contraceptive management ICD-V25.9 Inactive Dionne Stewart MD follow-up, routine ICD-V24.2 Inacti ve Dionne Stewart MD Vaginal discharge ICD-623.5 Inactive Dionne spencer MD Medication List Medication Instructions Start Date Stop Date Generic Name NDC Status Provider Patient Instruction AUGMENTIN 875-125 MG ORAL TABLET 1 po BID x 10 days 09/06/11 AMOXICILLIN-POT CLAVULANATE 25622025148 Active Rosalina Edwina CONSUMER MARKETING SPECIALIST Active FERROUS SULFATE 325 (65 FE) MG ORAL TABLET 1 tablet daily 5 FERROUS SULFATE 05571816237 Active Estela Clifton BODY TEAM MEMBER Active LORATADINE 10 MG ORAL TABLET 1 tablet by mouth daily LORATADINE 78313602896 Active Dionne Stewart MD Active TYLENOL PM EXTRA STRENGTH 500-25 MG ORAL TABLET PRN 12/31 DIPHENHYDRAMINE-APAP (SLEEP) 09355161469 No Longer Active Dionne Stewart MD Active CONCEPT DHA 53.5-38-1 MG ORAL CAPSULE one tab PO daily CXJOCR-YFAQP-ELGQ-FA-OMEGA 3 47185639444 Active Dionne Stewart MD Active FLAGYL 500 MG ORAL TABLET 1 tablet PO BID for 7 days 2 METRONIDAZOLE 94649888162 No Longer Active Dionne Stewart MD Active EQL FORMULA 28-0.8 MG ORAL TABLET 1 tablet daily 1 VIT-FE FUMARATE-FA 85191970794 No Longer Active Dionne Stewart MD A ctive CONCEPT DHA 53.5-38-1 MG ORAL CAPSULE one tab PO daily GLEGHP-FIAFI-FMQR-FA-OMEGA 3 79306986162 No Longer Active Dionne Stewart MD Active CYCLOBENZAPRINE HCL 10 MG ORAL TABLET 1 tablet by mout h three times daily as needed for muscle spasm/pain CYCLOBENZAPRINE HCL 55244745881 No Longer Active Dionne Stewart MD Active TRI-SPRINTEC 0.18/0.215/0.25 MG-35 MCG ORAL TABLET 1 po qd a s directed NORGESTIM-ETH ESTRAD TRIPHASIC 59740452379 N o Longer Active Dionne Stewart MD Active FLAGYL 250 MG ORAL TABLET One tablet three times a day METRONIDAZOLE 68456867309 No Longer Active Cintia Pagan APRN Active [facility] 28-0.8 MG ORAL TABLET 04/10 VIT-FE FUMARATE-FA 75267763987 No Longer Active Dionne Stewart MD Active [facility] 28-0.8 MG ORAL TABLET 04/10 [facility] 28-0.8 MG ORAL TABLET VIT-FE FUMARATE-FA Inactive TRI-SPRINTEC 0.18/0.215/0.25 MG-35 MCG ORAL TABLET 1 po qd a s directed TRI-SPRINTEC 0.18/0.215/0.25 MG-35 MCG ORAL TABL ET 528625 NORGESTIM-ETH ESTRAD TRIPHASIC Inactive CYCLOBENZAPRINE HCL 10 MG ORAL TABLET 1 tablet by mout h three times daily as needed for muscle spasm/pain CYCLOBENZAP RINE HCL 10 MG ORAL TABLET 121448 CYCLOBENZAPRINE HCL Inactive CONCEPT DHA 53.5-38-1 MG ORAL CAPSULE one tab PO daily CONCEPT DHA 53.5-38-1 MG ORAL CAPSULE WOGQKR-IZMLF-AMMO-FA-O BILLIE 3 Inactive FLAGYL 500 MG ORAL TABLET 1 tablet PO BID for 7 days 2 FLAGYL 500 MG ORAL TABLET 026125 METRONIDAZOLE Inactive TYLENOL PM EXTRA STRENGTH 500-25 MG ORAL TABLET PRN 12/31 TYLENOL PM EXTRA STRENGTH 500-25 MG ORAL TABLET 2724926 DIPHEN HYDRAMINE-APAP (SLEEP) Inactive FLAGYL 250 MG ORAL TABLET One tablet three times a day FLAGYL 250 MG ORAL TABLET 540056 METRONIDAZOLE Inactive Immunizations Vaccine Administration Date Value [...] 11 .0-15.0 platelet count 226 THOUSAND/UL 10*3/mm3 350-302 2399/05/11 mean platelet volume 10.3 fL 7.5-12.5 Lab [...] SCREEN, RBCW/REFL I , Drug Abuse Pn 10-50/11407 - Blood bank antibody screen, serum NO ANTIBODIES DETECTED Lab Report: CBC, [id number] Gluc cari-1spec - Hematology leukocyte count, blood [...] N Encounters Code Encounter Date Provider Facility CPT-13446 Level 3 Est. Patient 17:26:51 CDT Rosalina berg [facility] CPT-67005 Level 3 Est. Patient 17:31:05 ORCHARD MANAGER Cintia sommer [facility] Procedures Code Procedure Name Date Entry Date Standard Desc ription CPT-26143 Addl Vx - Ix admin via ID IM or jet injects without counseling by physician 18:18:11 CDT CPT-91379 Boostrix Intramuscular Suspension 5-2.5-18.5 201 04/01/05 18:18:11 CDT CPT-30126 First Vx - Ix admin via ID I M or jet injects without counseling by physician 18:18:11 CDT CPT-01018 Flulaval Intramuscular Injectable 18:18:11 CDT CPT-35543 Fluzone Thim Free 36mo and older 11:16:54 C DT CPT-02455 Tdap 7yrs or > 11:16:53 CDT CPT-63304 Visit 11:16:53 CDT CPT-97132 Visit 11:14:16 CDT CPT-01722 Visit 10:54:00 CDT CPT-86255 Visit 16:24:31 CDT CPT-59727 Sono OB comp > 14 weeks - XRAY USE ONLY 12:01:14 CDT CPT-44475 Visit 15:58:08 CDT CPT-40058 Visit 12:16:56 CDT CPT-42113L Sono OB comp <14 weeks (Pat Only) - X RAY USE ONLY 12:09:02 CDT CPT-37850 Spec Collection and Handling Fee 10:11:50 C DT CPT-37074 Visit 10:11:49 CDT CPT-J1050 Depo Provera 150 mg (Medroxyprogesterone) 08/30 16:06:30 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
--- OUTSIDE RECORDS SUMMARY | 2020-01-04 23:57 | XMS REPORT | Clinical Summary ---
Author Author Admin, Giuliana Flores Organization [facility] Address Unknown Phone Unavailable Allergies, Adverse Reactions, Alerts Allergy Name Reaction Description Start Date Severity Status Pr ovider No Known Allergies Megan Wise Conditions or Problems Problem Name Problem Code Onset Date Status Entry Date Provider Comment Standard Description Annotate Supervision of other normal V22.1 Resolved Cintia Paagn APRN Supervision of other normal Supervision of [...] use disorder NEED FOR PROPHYLACTIC VACCINATION WITH GYKFWQV-WPEOS-F UBELLA (MMR) VACCINE V06.4 Resolved Cintia Pagan APRN Need for prophylactic vaccination with hcnxkvh-fqlgc-eywvibl [MMR] vaccine Contraceptive management V25.9 Resolved Taiwo [...] screening 796.5 20 09/03/10 Active Estela Clifton CARE ADMINISTRATIVE TECH Abnormal finding on antenata l screening Sinusitis, acute frontal 461.1 Active Rosalina berg MASTER OF CEREMONIES Acute frontal sinusitis care, delayed ICD-V23.7 Inactive Kristin Pagan MASTER OF CEREMONIES NEED FOR PROPHYLACTIC VACCINATION WITH VTIODCY-UOFUP-Q UBELLA (MMR) VACCINE ICD-V06.4 Inactive Cintia Pagan MASTER OF CEREMONIES Contraceptive management ICD-V25.9 Inactive Dionne Stewart MD follow-up, routine ICD-V24.2 Inacti ve Dionne Stewart MD Vaginal discharge ICD-623.5 Inactive Dionne spencer MD Medication List Medication Instructions Start Date Stop Date Generic Name NDC Status Provider Patient Instruction AUGMENTIN 875-125 MG ORAL TABLET 1 po BID x 10 days 09/06/11 AMOXICILLIN-POT CLAVULANATE 12924420571 Active Rosalina Edwina MASTER OF CEREMONIES Active FERROUS SULFATE 325 (65 FE) MG ORAL TABLET 1 tablet daily 5 FERROUS SULFATE 51957005434 Active Estela Clifton CARE ADMINISTRATIVE TECH Active LORATADINE 10 MG ORAL TABLET 1 tablet by mouth daily LORATADINE 12365583408 Active Dionne Stewart MD Active TYLENOL PM EXTRA STRENGTH 500-25 MG ORAL TABLET PRN 12/31 DIPHENHYDRAMINE-APAP (SLEEP) 34948320897 No Longer Active Dionne Stewart MD Active CONCEPT DHA 53.5-38-1 MG ORAL CAPSULE one tab PO daily AUGVJD-GJRGO-QGCN-FA-OMEGA 3 66018483789 Active Dionne Stewart MD Active FLAGYL 500 MG ORAL TABLET 1 tablet PO BID for 7 days 2 METRONIDAZOLE 40380420482 No Longer Active Dionne Stewart MD Active EQL FORMULA 28-0.8 MG ORAL TABLET 1 tablet daily 1 VIT-FE FUMARATE-FA 36399285350 No Longer Active Dionne Stewart MD A ctive CONCEPT DHA 53.5-38-1 MG ORAL CAPSULE one tab PO daily BODRED-DVKLH-ENCE-FA-OMEGA 3 36520649189 No Longer Active Dionne Stewart MD Active CYCLOBENZAPRINE HCL 10 MG ORAL TABLET 1 tablet by mout h three times daily as needed for muscle spasm/pain CYCLOBENZAPRINE HCL 29507432703 No Longer Active Dionne Stewart MD Active TRI-SPRINTEC 0.18/0.215/0.25 MG-35 MCG ORAL TABLET 1 po qd a s directed NORGESTIM-ETH ESTRAD TRIPHASIC 10865297082 N o Longer Active Dionne Stewart MD Active FLAGYL 250 MG ORAL TABLET One tablet three times a day METRONIDAZOLE 97425827685 No Longer Active Cintia Pagan APRN Active [facility] 28-0.8 MG ORAL TABLET 04/10 VIT-FE FUMARATE-FA 73251837988 No Longer Active Dionne Stewart MD Active CVS 28-0.8 MG ORAL TABLET 04/10 CVS 28-0.8 MG ORAL TABLET VIT-FE FUMARATE-FA Inactive TRI-SPRINTEC 0.18/0.215/0.25 MG-35 MCG ORAL TABLET 1 po qd a s directed TRI-SPRINTEC 0.18/0.215/0.25 MG-35 MCG ORAL TABL ET 977579 NORGESTIM-ETH ESTRAD TRIPHASIC Inactive CYCLOBENZAPRINE HCL 10 MG ORAL TABLET 1 tablet by mout h three times daily as needed for muscle spasm/pain CYCLOBENZAP RINE HCL 10 MG ORAL TABLET 606329 CYCLOBENZAPRINE HCL Inactive CONCEPT DHA 53.5-38-1 MG ORAL CAPSULE one tab PO daily CONCEPT DHA 53.5-38-1 MG ORAL CAPSULE RPNISO-LSUIY-RHIJ-FA-O BILLIE 3 Inactive FLAGYL 500 MG ORAL TABLET 1 tablet PO BID for 7 days 2 FLAGYL 500 MG ORAL TABLET 362968 METRONIDAZOLE Inactive TYLENOL PM EXTRA STRENGTH 500-25 MG ORAL TABLET PRN 12/31 TYLENOL PM EXTRA STRENGTH 500-25 MG ORAL TABLET 4214152 DIPHEN HYDRAMINE-APAP (SLEEP) Inactive FLAGYL 250 MG ORAL TABLET One tablet three times a day FLAGYL 250 MG ORAL TABLET 324062 METRONIDAZOLE Inactive Immunizations Vaccine Administration Date Value [...] 11 .0-15.0 platelet count 226 THOUSAND/UL 10*3/mm3 644-299 9609/05/11 mean platelet volume 10.3 fL 7.5-12.5 Lab [...] SCREEN, RBCW/REFL I , Drug Abuse Pn 10-50/87057 - Blood bank antibody screen, serum NO ANTIBODIES DETECTED Lab Report: CBC, [id number] Gluc cari-1spec - Hematology leukocyte count, blood [...] count 201 10^3/MM^3 10*3/mm3 142-424 Lab Report: Thyroid Stimulating Hormone (L), UADIP [...] N Encounters Code Encounter Date Provider Facility CPT-20689 Level 3 Est. Patient 17:26:51 CDT Rosalina berg [facility] CPT-89248 Level 3 Est. Patient 17:31:05 VEGETABLE THINNER Cintia sommer [facility] Procedures Code Procedure Name Date Entry Date Standard Desc ription CPT-62667 Addl Vx - Ix admin via ID IM or jet injects without counseling by physician 18:18:11 CDT CPT-22214 Boostrix Intramuscular Suspension 5-2.5-18.5 201 04/01/05 18:18:11 CDT CPT-87266 First Vx - Ix admin via ID I M or jet injects without counseling by physician 18:18:11 CDT CPT-72645 Flulaval Intramuscular Injectable 18:18:11 CDT CPT-34185 Fluzone Thim Free 36mo and older 11:16:54 C DT CPT-67702 Tdap 7yrs or > 11:16:53 CDT CPT-43865 Visit 11:16:53 CDT CPT-55306 Visit 11:14:16 CDT CPT-94321 Visit 10:54:00 CDT CPT-44284 Visit 16:24:31 CDT CPT-27512 Sono OB comp > 14 weeks - XRAY USE ONLY 12:01:14 CDT CPT-30024 Visit 15:58:08 CDT CPT-09521 Visit 12:16:56 CDT CPT-20777U Sono OB comp <14 weeks (Pat Only) - X RAY USE ONLY 12:09:02 CDT CPT-21969 Spec Collection and Handling Fee 10:11:50 C DT CPT-56784 Visit 10:11:49 CDT CPT-J1050 Depo Provera 150 mg (Medroxyprogesterone) 08/30 16:06:30 VEGETABLE THINNER CPT-42678 Abx/Therapy Injection 16:06:30 VEGETABLE THINNER CPT-J1050 Depo Provera 150 mg (Medroxyprogesterone) 08/30 15:39:17 VEGETABLE THINNER CPT-44787 Visit 15:01:38 CDT CPT-57729 Sono OB comp > 14 weeks 16:05:04 CDT 03/18 CPT-87411 Spec Collection and Handling Fee 10:45:40 C DT CPT-29902 Visit 10:45:40 CDT
--- OUTSIDE RECORDS SUMMARY | 2020-01-04 23:57 | XMS REPORT | Clinical Summary ---
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 [employer] TROLLEY Abnormal finding on antenata l screening Sinusitis, acute frontal 461.1 Active Rosalina berg SENIOR RUBY DEVELOPER Acute frontal sinusitis care, delayed ICD-V23.7 Inactive Kristin Pagan SENIOR RUBY DEVELOPER NEED FOR PROPHYLACTIC VACCINATION WITH HUYZKUR-FBKTA-U UBELLA (MMR) VACCINE ICD-V06.4 Inactive Cintia Pagan SENIOR RUBY DEVELOPER Contraceptive management ICD-V25.9 Inactive Dionne Stewart MD follow-up, routine ICD-V24.2 Inacti ve Dionne Stewart MD Vaginal discharge ICD-623.5 Inactive Dionne spencer MD Medication List Medication Instructions Start Date Stop Date Generic Name NDC Status Provider Patient Instruction AUGMENTIN 875-125 MG ORAL TABLET 1 po BID x 10 days 09/06/11 AMOXICILLIN-POT CLAVULANATE 37032012435 Active Rosalina Edwina SENIOR RUBY DEVELOPER Active FERROUS SULFATE 325 (65 FE) MG ORAL TABLET 1 tablet daily 5 FERROUS SULFATE 87747223706 Active Estela Clifton AND TAXI INSTRUCTOR BUS TROLLEY Active LORATADINE 10 MG ORAL TABLET 1 tablet by mouth daily LORATADINE 40976446377 Active Dionne Stewart MD Active TYLENOL PM EXTRA STRENGTH 500-25 MG ORAL TABLET PRN 12/31 DIPHENHYDRAMINE-APAP (SLEEP) 85970424680 No Longer Active Dionne Stewart MD Active CONCEPT DHA 53.5-38-1 MG ORAL CAPSULE one tab PO daily IALVMU-JPDBS-WAKG-FA-OMEGA 3 47835073224 Active Dionne Stewart MD Active FLAGYL 500 MG ORAL TABLET 1 tablet PO BID for 7 days 2 METRONIDAZOLE 01439626027 No Longer Active Dionne Stewart MD Active EQL FORMULA 28-0.8 MG ORAL TABLET 1 tablet daily 1 VIT-FE FUMARATE-FA 92595142302 No Longer Active Dionne Stewart MD A ctive CONCEPT DHA 53.5-38-1 MG ORAL CAPSULE one tab PO daily QYLRGE-GWGYR-DKVX-FA-OMEGA 3 67480856206 No Longer Active Dionne Stewart MD Active CYCLOBENZAPRINE HCL 10 MG ORAL TABLET 1 tablet by mout h three times daily as needed for muscle spasm/pain CYCLOBENZAPRINE HCL 80777481151 No Longer Active Dionne Stewart MD Active TRI-SPRINTEC 0.18/0.215/0.25 MG-35 MCG ORAL TABLET 1 po qd a s directed NORGESTIM-ETH ESTRAD TRIPHASIC 06109697871 N o Longer Active Dionne Stewart MD Active FLAGYL 250 MG ORAL TABLET One tablet three times a day METRONIDAZOLE 56203327470 No Longer Active Cintia Pagan APRN Active CVS 28-0.8 MG ORAL TABLET 04/10 VIT-FE FUMARATE-FA 35261814220 No Longer Active Dionne Stewart MD Active CVS 28-0.8 MG ORAL TABLET 04/10 CVS 28-0.8 MG ORAL TABLET VIT-FE FUMARATE-FA Inactive TRI-SPRINTEC 0.18/0.215/0.25 MG-35 MCG ORAL TABLET 1 po qd a s directed TRI-SPRINTEC 0.18/0.215/0.25 MG-35 MCG ORAL TABL ET 320121 NORGESTIM-ETH ESTRAD TRIPHASIC Inactive CYCLOBENZAPRINE HCL 10 MG ORAL TABLET 1 tablet by mout h three times daily as needed for muscle spasm/pain CYCLOBENZAP RINE HCL 10 MG ORAL TABLET 374304 CYCLOBENZAPRINE HCL Inactive CONCEPT DHA 53.5-38-1 MG ORAL CAPSULE one tab PO daily CONCEPT DHA 53.5-38-1 MG ORAL CAPSULE OJVINY-WXRUM-JPWI-FA-O BILLIE 3 Inactive FLAGYL 500 MG ORAL TABLET 1 tablet PO BID for 7 days 2 FLAGYL 500 MG ORAL TABLET 944762 METRONIDAZOLE Inactive TYLENOL PM EXTRA STRENGTH 500-25 MG ORAL TABLET PRN 12/31 TYLENOL PM EXTRA STRENGTH 500-25 MG ORAL TABLET 0118718 DIPHEN HYDRAMINE-APAP (SLEEP) Inactive FLAGYL 250 MG ORAL TABLET One tablet three times a day FLAGYL 250 MG ORAL TABLET 083477 METRONIDAZOLE Inactive Immunizations Vaccine Administration Date Value [...] 11 .0-15.0 platelet count 226 THOUSAND/UL 10*3/mm3 412-935 8514/05/11 mean platelet volume 10.3 fL 7.5-12.5 Lab [...] SCREEN, RBCW/REFL I , Drug Abuse Pn 10-50/53577 - Blood bank antibody screen, serum NO ANTIBODIES DETECTED Lab Report: CBC, [id number] Gluc cari-1spec - Hematology erythrocyte (RBC) count 3.30 10^6/MM^3 10*6/mm3 3.80-5.8 [...] N Encounters Code Encounter Date Provider Facility CPT-76726 Level 3 Est. Patient 17:26:51 CDT Rosalina berg [facility] CPT-48068 Level 3 Est. Patient 17:31:05 EQUIPMENT MAINT TECH Cintia sommer [facility] Procedures Code Procedure Name Date Entry Date Standard Desc ription CPT-85544 Addl Vx - Ix admin via ID IM or jet injects without counseling by physician 18:18:11 CDT CPT-28975 Boostrix Intramuscular Suspension 5-2.5-18.5 201 04/01/05 18:18:11 CDT CPT-59149 First Vx - Ix admin via ID I M or jet injects without counseling by physician 18:18:11 CDT CPT-84534 Flulaval Intramuscular Injectable 18:18:11 CDT CPT-64370 Fluzone Thim Free 36mo and older 11:16:54 C DT CPT-01532 Tdap 7yrs or > 11:16:53 CDT CPT-39379 Visit 11:16:53 CDT CPT-67978 Visit 11:14:16 CDT CPT-09836 Visit 10:54:00 CDT CPT-97576 Visit 16:24:31 CDT CPT-04749 Sono OB comp > 14 weeks - XRAY USE ONLY 12:01:14 CDT CPT-25260 Visit 15:58:08 CDT CPT-22007 Visit 12:16:56 CDT CPT-88984M Sono OB comp <14 weeks (Pat Only) - X RAY USE ONLY 12:09:02 CDT CPT-61281 Spec Collection and Handling Fee 10:11:50 C DT CPT-51311 Visit 10:11:49 CDT CPT-J1050 Depo Provera 150 mg (Medroxyprogesterone) 08/30 16:06:30 EQUIPMENT MAINT TECH CPT-02803 Abx/Therapy Injection 16:06:30 EQUIPMENT MAINT TECH CPT-J1050 Depo Provera 150 mg (Medroxyprogesterone) 08/30 15:39:17 EQUIPMENT MAINT TECH CPT-66471 Visit 15:01:38 CDT CPT-54026 Sono OB comp > 14 weeks 16:05:04 CDT 03/18 CPT-83062 Spec Collection and Handling Fee 10:45:40 C DT CPT-02939 Visit 10:45:40 CDT
--- OUTSIDE RECORDS SUMMARY | 2020-01-04 23:57 | XMS REPORT | Clinical Summary ---
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 Abnormal finding on antenata l screening Sinusitis, acute frontal 461.1 Active Rosalina berg PARTS MANAGER Acute frontal sinusitis care, delayed ICD-V23.7 Inactive Kristin Pagan PARTS MANAGER NEED FOR PROPHYLACTIC VACCINATION WITH DSECQXY-HYKJB-I UBELLA (MMR) VACCINE ICD-V06.4 Inactive Cintia Pagan PARTS MANAGER Contraceptive management ICD-V25.9 Inactive Dionne Stewart MD follow-up, routine ICD-V24.2 Inacti ve Dionne Stewart MD Vaginal discharge ICD-623.5 Inactive Dionne spencer MD Medication List Medication Instructions Start Date Stop Date Generic Name NDC Status Provider Patient Instruction AUGMENTIN 875-125 MG ORAL TABLET 1 po BID x 10 days 09/06/11 AMOXICILLIN-POT CLAVULANATE 79353045955 Active Rosalina Edwina PARTS MANAGER Active FERROUS SULFATE 325 (65 FE) MG ORAL TABLET 1 tablet daily 5 FERROUS SULFATE 25860176023 Active Estela Clifton REMOTE COMPUTER TERMINAL OPERATOR Active LORATADINE 10 MG ORAL TABLET 1 tablet by mouth daily LORATADINE 62188320886 Active Dionne Stewart MD Active TYLENOL PM EXTRA STRENGTH 500-25 MG ORAL TABLET PRN 12/31 DIPHENHYDRAMINE-APAP (SLEEP) 07257821149 No Longer Active Dionne Stewart MD Active CONCEPT DHA 53.5-38-1 MG ORAL CAPSULE one tab PO daily HOMJPB-QNYXD-XKOW-FA-OMEGA 3 94937550380 Active Dionne Stewart MD Active FLAGYL 500 MG ORAL TABLET 1 tablet PO BID for 7 days 2 METRONIDAZOLE 63151239110 No Longer Active Dionne Stewart MD Active EQL FORMULA 28-0.8 MG ORAL TABLET 1 tablet daily 1 VIT-FE FUMARATE-FA 27982842174 No Longer Active Dionne Stewart MD A ctive CONCEPT DHA 53.5-38-1 MG ORAL CAPSULE one tab PO daily UKCAGX-GQPME-DAQI-FA-OMEGA 3 69639376857 No Longer Active Dionne Stewart MD Active CYCLOBENZAPRINE HCL 10 MG ORAL TABLET 1 tablet by mout h three times daily as needed for muscle spasm/pain CYCLOBENZAPRINE HCL 41254531076 No Longer Active Dionne Stewart MD Active TRI-SPRINTEC 0.18/0.215/0.25 MG-35 MCG ORAL TABLET 1 po qd a s directed NORGESTIM-ETH ESTRAD TRIPHASIC 72178345592 N o Longer Active Dionne Stewart MD Active FLAGYL 250 MG ORAL TABLET One tablet three times a day METRONIDAZOLE 55309741095 No Longer Active Cintia Pagan APRN Active [facility] 28-0.8 MG ORAL TABLET 04/10 VIT-FE FUMARATE-FA 13919509330 No Longer Active Dionne Stewart MD Active [facility] 28-0.8 MG ORAL TABLET 04/10 [facility] 28-0.8 MG ORAL TABLET VIT-FE FUMARATE-FA Inactive TRI-SPRINTEC 0.18/0.215/0.25 MG-35 MCG ORAL TABLET 1 po qd a s directed TRI-SPRINTEC 0.18/0.215/0.25 MG-35 MCG ORAL TABL ET 239536 NORGESTIM-ETH ESTRAD TRIPHASIC Inactive CYCLOBENZAPRINE HCL 10 MG ORAL TABLET 1 tablet by mout h three times daily as needed for muscle spasm/pain CYCLOBENZAP RINE HCL 10 MG ORAL TABLET 040555 CYCLOBENZAPRINE HCL Inactive CONCEPT DHA 53.5-38-1 MG ORAL CAPSULE one tab PO daily CONCEPT DHA 53.5-38-1 MG ORAL CAPSULE IBYKAJ-PHTTR-AWHS-FA-O BILLIE 3 Inactive FLAGYL 500 MG ORAL TABLET 1 tablet PO BID for 7 days 2 FLAGYL 500 MG ORAL TABLET 881541 METRONIDAZOLE Inactive TYLENOL PM EXTRA STRENGTH 500-25 MG ORAL TABLET PRN 12/31 TYLENOL PM EXTRA STRENGTH 500-25 MG ORAL TABLET 1345073 DIPHEN HYDRAMINE-APAP (SLEEP) Inactive FLAGYL 250 MG ORAL TABLET One tablet three times a day FLAGYL 250 MG ORAL TABLET 432511 METRONIDAZOLE Inactive Immunizations Vaccine Administration Date Value [...] 11 .0-15.0 platelet count 226 THOUSAND/UL 10*3/mm3 308-887 5377/05/11 mean platelet volume 10.3 fL 7.5-12.5 Lab [...] SCREEN, RBCW/REFL I , Drug Abuse Pn 10-50/96315 - Blood bank antibody screen, serum NO ANTIBODIES DETECTED Lab Report: CBC, [id number] Gluc cari-1spec - Hematology leukocyte count, blood [...] N Encounters Code Encounter Date Provider Facility CPT-94129 Level 3 Est. Patient 17:26:51 CDT Rosalina berg [facility] CPT-65119 Level 3 Est. Patient 17:31:05 PROMOTION MANAGER Cintia sommer [facility] Procedures Code Procedure Name Date Entry Date Standard Desc ription CPT-11685 Fluzone Thim Free 36mo and older 11:16:54 C DT CPT-98391 Tdap 7yrs or > 11:16:53 CDT CPT-70510 Visit 11:16:53 CDT CPT-53230 Visit 11:14:16 CDT CPT-43348 Visit 10:54:00 CDT CPT-40722 Visit 16:24:31 CDT CPT-88420 Sono OB comp > 14 weeks - XRAY USE ONLY 12:01:14 CDT CPT-25386 Visit 15:58:08 CDT CPT-28283 Visit 12:16:56 CDT CPT-90848G Sono OB comp <14 weeks ([place] Only) - X RAY USE ONLY 12:09:02 CDT CPT-38652 Spec Collection and Handling Fee 10:11:50 C DT CPT-78252 Visit 10:11:49 CDT CPT-J1050 Depo Provera 150 mg (Medroxyprogesterone) 08/30 16:06:30 PROMOTION MANAGER CPT-70717 Abx/Therapy Injection 16:06:30 PROMOTION MANAGER CPT-J1050 Depo Provera 150 mg (Medroxyprogesterone) 08/30 15:39:17 PROMOTION MANAGER CPT-44237 Visit 15:01:38 CDT CPT-00130 Sono OB comp > 14 weeks 16:05:04 CDT 03/18 CPT-26032 Spec Collection and Handling Fee 10:45:40 C DT CPT-90184 Visit 10:45:40 CDT
[2020-01-04 23:58] VITALS: BP 120/57
--- OUTSIDE RECORDS SUMMARY | 2020-01-04 23:58 | XMS REPORT | Clinical Summary ---
Author Author Admin, Giuliana Flores Organization [facility] Address Unknown Phone Unavailable Allergies, Adverse Reactions, Alerts Allergy Name Reaction Description Start Date Severity Status Pr ovider No Known Allergies Tiago Sosa MA Conditions or Problems Problem Name Problem Code [...] use disorder NEED FOR PROPHYLACTIC VACCINATION WITH RPMALYP-NBEHQ-Q UBELLA (MMR) VACCINE V06.4 Resolved Cintia Pagan APRN Need for prophylactic vaccination with ntafnev-mgnba-uczjeau [MMR] vaccine Contraceptive management V25.9 Resolved Taiwo [...] weeks gestation of V28.9 Inactive 2017 Pamela Paulinoty LRT Encounter for unspecified scre ening of mother 25 weeks gestation of V28.9 Inactive 2017 Dionne Stewart MD Encounter for unspecified scre ening of mother 27 weeks gestation of V28.9 Active 2017 Dionne Stewart MD Encounter for unspecified scre ening of mother Abnormal biochemical finding on screening 796.5 20 09/03/10 Active Estela Clifton OPERATING SYSTEM DESIGNER Abnormal finding on antenata l screening Sinusitis, acute frontal 461.1 Active Rosalina berg JAVA SWING DEVELOPER Acute frontal sinusitis care, delayed ICD-V23.7 Inactive Kristin Pagan JAVA SWING DEVELOPER NEED FOR PROPHYLACTIC VACCINATION WITH JHBKIWQ-KBJOP-I UBELLA (MMR) VACCINE ICD-V06.4 Inactive Cintia Pagan JAVA SWING DEVELOPER Contraceptive management ICD-V25.9 Inactive Dionne Stewart MD follow-up, routine ICD-V24.2 Inacti ve Dionne Stewart MD Vaginal discharge ICD-623.5 Inactive Dionne spencer MD Medication List Medication Instructions Start Date Stop Date Generic Name NDC Status Provider Patient Instruction AUGMENTIN 875-125 MG ORAL TABLET 1 po BID x 10 days 09/06/11 AMOXICILLIN-POT CLAVULANATE 96058856461 Active Rosalina Edwina JAVA SWING DEVELOPER Active FERROUS SULFATE 325 (65 FE) MG ORAL TABLET 1 tablet daily 5 FERROUS SULFATE 94270841455 Active Estela Etienne OPERATING SYSTEM DESIGNER Active LORATADINE 10 MG ORAL TABLET 1 tablet by mouth daily LORATADINE 07126738794 Active Dionne Stewart MD Active TYLENOL PM EXTRA STRENGTH 500-25 MG ORAL TABLET PRN 12/31 DIPHENHYDRAMINE-APAP (SLEEP) 45591925430 No Longer Active Dionne Stewart MD Active CONCEPT DHA 53.5-38-1 MG ORAL CAPSULE one tab PO daily VGKCCO-CLGKI-TKTW-FA-OMEGA 3 41903221758 Active Dionne Stewart MD Active FLAGYL 500 MG ORAL TABLET 1 tablet PO BID for 7 days 2 METRONIDAZOLE 90993545219 No Longer Active Dionne Stewart MD Active EQL FORMULA 28-0.8 MG ORAL TABLET 1 tablet daily 1 VIT-FE FUMARATE-FA 98791876103 No Longer Active Dionne Stewart MD A ctive CONCEPT DHA 53.5-38-1 MG ORAL CAPSULE one tab PO daily DWOJNW-AIBQQ-UUKZ-FA-OMEGA 3 56490611425 No Longer Active Dionne Stewart MD Active CYCLOBENZAPRINE HCL 10 MG ORAL TABLET 1 tablet by mout h three times daily as needed for muscle spasm/pain CYCLOBENZAPRINE HCL 06538668061 No Longer Active Dionne Stewart MD Active TRI-SPRINTEC 0.18/0.215/0.25 MG-35 MCG ORAL TABLET 1 po qd a s directed NORGESTIM-ETH ESTRAD TRIPHASIC 02638390991 N o Longer Active Dionne Stewart MD Active FLAGYL 250 MG ORAL TABLET One tablet three times a day METRONIDAZOLE 02268807920 No Longer Active Cintia Pagan JAVA SWING DEVELOPER Active [facility] 28-0.8 MG ORAL TABLET 04/10 VIT-FE FUMARATE-FA 60927593537 No Longer Active Dionne Stewart MD Active [facility] 28-0.8 MG ORAL TABLET 04/10 [facility] 28-0.8 MG ORAL TABLET VIT-FE FUMARATE-FA Inactive TRI-SPRINTEC 0.18/0.215/0.25 MG-35 MCG ORAL TABLET 1 po qd a s directed TRI-SPRINTEC 0.18/0.215/0.25 MG-35 MCG ORAL TABL ET 696055 NORGESTIM-ETH ESTRAD TRIPHASIC Inactive CYCLOBENZAPRINE HCL 10 MG ORAL TABLET 1 tablet by mout h three times daily as needed for muscle spasm/pain CYCLOBENZAP RINE HCL 10 MG ORAL TABLET 349205 CYCLOBENZAPRINE HCL Inactive CONCEPT DHA 53.5-38-1 MG ORAL CAPSULE one tab PO daily CONCEPT DHA 53.5-38-1 MG ORAL CAPSULE OBZGTN-CQFBD-RKMX-FA-O BILLIE 3 Inactive FLAGYL 500 MG ORAL TABLET 1 tablet PO BID for 7 days 2 FLAGYL 500 MG ORAL TABLET 449837 METRONIDAZOLE Inactive TYLENOL PM EXTRA STRENGTH 500-25 MG ORAL TABLET PRN 12/31 TYLENOL PM EXTRA STRENGTH 500-25 MG ORAL TABLET 3436285 DIPHEN HYDRAMINE-APAP (SLEEP) Inactive FLAGYL 250 MG ORAL TABLET One tablet three times a day FLAGYL 250 MG ORAL TABLET 150989 METRONIDAZOLE Inactive Immunizations Vaccine Administration Date Value [...] 11 .0-15.0 platelet count 226 THOUSAND/UL 10*3/mm3 472-985 0683/05/11 mean platelet volume 10.3 fL 7.5-12.5 Lab [...] SCREEN, RBCW/REFL I , Drug Abuse Pnl 10-50/04920 - Blood bank antibody screen, serum NO ANTIBODIES DETECTED Lab Report: CBC, [id number] Gluc cari-1spec - Hematology leukocyte count, blood [...] N Encounters Code Encounter Date Provider Facility CPT-54899 Level 3 Est. Patient 17:26:51 CDT Rosalina berg [facility] CPT-86025 Level 3 Est. Patient 17:31:05 DIRECTOR STRATEGY Cintia sommer [facility] Procedures Code Procedure Name Date Entry Date Standard Desc ription CPT-12585 Visit 11:14:16 CDT CPT-45883 Visit 10:54:00 CDT CPT-40671 Visit 16:24:31 CDT CPT-06929 Sono OB comp > 14 weeks - XRAY USE ONLY 12:01:14 CDT CPT-87987 Visit 15:58:08 CDT CPT-11091 Visit 12:16:56 CDT CPT-95157E Sono OB comp <14 weeks ([place] Only) - X RAY USE ONLY 12:09:02 CDT CPT-28324 Spec Collection and Handling Fee 10:11:50 C DT CPT-83936 Visit 10:11:49 CDT CPT-J1050 Depo Provera 150 mg (Medroxyprogesterone) 08/30 16:06:30 DIRECTOR STRATEGY CPT-26239 Abx/Therapy Injection 16:06:30 DIRECTOR STRATEGY CPT-J1050 Depo Provera 150 mg (Medroxyprogesterone) 08/30 15:39:17 DIRECTOR STRATEGY CPT-13577 Visit 15:01:38 CDT CPT-11062 Sono OB comp > 14 weeks 16:05:04 CDT 03/18 CPT-00932 Spec Collection and Handling Fee 10:45:40 C DT CPT-52688 Visit 10:45:40 CDT
--- OUTSIDE RECORDS SUMMARY | 2020-01-04 23:58 | XMS REPORT | Clinical Summary ---
Author Author Admin, Giuliana Flores Organization [facility] Address Unknown Phone Unavailable Allergies, Adverse Reactions, [...] use disorder NEED FOR PROPHYLACTIC VACCINATION WITH ACRBBFF-XDOZL-X UBELLA (MMR) VACCINE V06.4 Resolved Cintia Pagan APRN Need for prophylactic vaccination with khhgxea-otqvb-kwlozuz [MMR] vaccine Contraceptive management V25.9 Resolved Taiwo [...] screening 796.5 20 09/03/10 Active Estela Clifton RACK WORKER Abnormal finding on antenata l screening Sinusitis, acute frontal 461.1 Active Rosalina berg CAFE OPERATOR Acute frontal sinusitis care, delayed ICD-V23.7 Inactive Kristin Pagan CAFE OPERATOR NEED FOR PROPHYLACTIC VACCINATION WITH YWIHMAZ-LMKXV-Y UBELLA (MMR) VACCINE ICD-V06.4 Inactive Cintai Pagan CAFE OPERATOR Contraceptive management ICD-V25.9 Inactive Dionne Stewart MD follow-up, routine ICD-V24.2 Inacti ve Dionne Stewart MD Vaginal discharge ICD-623.5 Inactive Dionne spencer MD Medication List Medication Instructions Start Date Stop Date Generic Name NDC Status Provider Patient Instruction AUGMENTIN 875-125 MG ORAL TABLET 1 po BID x 10 days 09/06/11 AMOXICILLIN-POT CLAVULANATE 71159844593 Active Rosalina Edwina CAFE OPERATOR Active FERROUS SULFATE 325 (65 FE) MG ORAL TABLET 1 tablet daily 5 FERROUS SULFATE 54453916908 Active Estela Etienne RACK WORKER Active LORATADINE 10 MG ORAL TABLET 1 tablet by mouth daily LORATADINE 29551291621 Active Dionne Stewart MD Active TYLENOL PM EXTRA STRENGTH 500-25 MG ORAL TABLET PRN 12/31 DIPHENHYDRAMINE-APAP (SLEEP) 63166137099 No Longer Active Dionne Stewart MD Active CONCEPT DHA 53.5-38-1 MG ORAL CAPSULE one tab PO daily EWGMTJ-JIAXB-UOBE-FA-OMEGA 3 79863848790 Active Dionne Stewart MD Active FLAGYL 500 MG ORAL TABLET 1 tablet PO BID for 7 days 2 METRONIDAZOLE 73233287405 No Longer Active Dionne Stewart MD Active EQL FORMULA 28-0.8 MG ORAL TABLET 1 tablet daily 1 VIT-FE FUMARATE-FA 04276154884 No Longer Active Dionne Stewart MD A ctive CONCEPT DHA 53.5-38-1 MG ORAL CAPSULE one tab PO daily EHHCPZ-YDAPF-KVMW-FA-OMEGA 3 47968074816 No Longer Active Dionne Stewart MD Active CYCLOBENZAPRINE HCL 10 MG ORAL TABLET 1 tablet by mout h three times daily as needed for muscle spasm/pain CYCLOBENZAPRINE HCL 70440888554 No Longer Active Dionne Stewart MD Active TRI-SPRINTEC 0.18/0.215/0.25 MG-35 MCG ORAL TABLET 1 po qd a s directed NORGESTIM-ETH ESTRAD TRIPHASIC 87644088269 N o Longer Active Dionne Stewart MD Active FLAGYL 250 MG ORAL TABLET One tablet three times a day METRONIDAZOLE 53635067950 No Longer Active Cintia Pagan CAFE OPERATOR Active [facility] 28-0.8 MG ORAL TABLET 04/10 VIT-FE FUMARATE-FA 77764474806 No Longer Active Dionne Stewart MD Active [facility] 28-0.8 MG ORAL TABLET 04/10 [facility] 28-0.8 MG ORAL TABLET VIT-FE FUMARATE-FA Inactive TRI-SPRINTEC 0.18/0.215/0.25 MG-35 MCG ORAL TABLET 1 po qd a s directed TRI-SPRINTEC 0.18/0.215/0.25 MG-35 MCG ORAL TABL ET 043110 NORGESTIM-ETH ESTRAD TRIPHASIC Inactive CYCLOBENZAPRINE HCL 10 MG ORAL TABLET 1 tablet by mout h three times daily as needed for muscle spasm/pain CYCLOBENZAP RINE HCL 10 MG ORAL TABLET 007550 CYCLOBENZAPRINE HCL Inactive CONCEPT DHA 53.5-38-1 MG ORAL CAPSULE one tab PO daily CONCEPT DHA 53.5-38-1 MG ORAL CAPSULE DJIADE-JYYIA-RUJE-FA-O BILLIE 3 Inactive FLAGYL 500 MG ORAL TABLET 1 tablet PO BID for 7 days 2 FLAGYL 500 MG ORAL TABLET 950899 METRONIDAZOLE Inactive TYLENOL PM EXTRA STRENGTH 500-25 MG ORAL TABLET PRN 12/31 TYLENOL PM EXTRA STRENGTH 500-25 MG ORAL TABLET 1488298 DIPHEN HYDRAMINE-APAP (SLEEP) Inactive FLAGYL 250 MG ORAL TABLET One tablet three times a day FLAGYL 250 MG ORAL TABLET 518340 METRONIDAZOLE Inactive Immunizations Vaccine Administration Date Value [...] 11 .0-15.0 platelet count 226 THOUSAND/UL 10*3/mm3 474-429 6041/05/11 mean platelet volume 10.3 fL 7.5-12.5 Lab [...] SCREEN, RBCW/REFL I , Drug Abuse Pnl 10-50/14976 - Blood bank antibody screen, serum NO ANTIBODIES DETECTED Lab Report: CBC, [id number] Gluc cari-1spec - Hematology leukocyte count, blood [...] N Encounters Code Encounter Date Provider Facility CPT-54027 Level 3 Est. Patient 17:26:51 CDT Rosalina berg [facility] CPT-17399 Level 3 Est. Patient 17:31:05 DRESSAGE JUDGE Cintia osmmer [facility] Procedures Code Procedure Name Date Entry Date Standard Desc ription CPT-02535 Visit 11:14:16 CDT CPT-78118 Visit 10:54:00 CDT CPT-49412 Visit 16:24:31 CDT CPT-40380 Sono OB comp > 14 weeks - XRAY USE ONLY 12:01:14 CDT CPT-38787 Visit 15:58:08 CDT CPT-75896 Visit 12:16:56 CDT CPT-57055M Sono OB comp <14 weeks ([place] Only) - X RAY USE ONLY 12:09:02 CDT CPT-76478 Spec Collection and Handling Fee 10:11:50 C DT CPT-46010 Visit 10:11:49 CDT CPT-J1050 Depo Provera 150 mg (Medroxyprogesterone) 08/30 16:06:30 DRESSAGE JUDGE CPT-25667 Abx/Therapy Injection 16:06:30 DRESSAGE JUDGE CPT-J1050 Depo Provera 150 mg (Medroxyprogesterone) 08/30 15:39:17 DRESSAGE JUDGE CPT-76769 Visit 15:01:38 CDT CPT-62485 Sono OB comp > 14 weeks 16:05:04 CDT 03/18 CPT-40771 Spec Collection and Handling Fee 10:45:40 C DT CPT-64565 Visit 10:45:40 CDT
--- OUTSIDE RECORDS SUMMARY | 2020-01-04 23:58 | XMS REPORT | Clinical Summary ---
Author Author Admin, Giuliana Flores Organization [facility] Address Unknown Phone Unavailable Allergies, [...] use disorder NEED FOR PROPHYLACTIC VACCINATION WITH JPSMPED-HCNFR-I UBELLA (MMR) VACCINE V06.4 Resolved Cintia Pagan APRN Need for prophylactic vaccination with avmkznl-xycvk-abtjfiq [MMR] vaccine Contraceptive management V25.9 Resolved Taiwo Stewatr MD Encounter for unspecified contraceptive management follow-up, [...] screening 796.5 20 09/03/10 Active Estela Clifton REVENUE MANAGER Abnormal finding on antenata l screening Sinusitis, acute frontal 461.1 Active Rosalina berg MAIL CARRIER TECHNICIAN Acute frontal sinusitis care, delayed ICD-V23.7 Inactive Kristin Pagan MAIL CARRIER TECHNICIAN NEED FOR PROPHYLACTIC VACCINATION WITH HUIZXBR-CLRUL-I UBELLA (MMR) VACCINE ICD-V06.4 Inactive Cintia Pagan MAIL CARRIER TECHNICIAN Contraceptive management ICD-V25.9 Inactive Dionne Stewart MD follow-up, routine ICD-V24.2 Inacti ve Dionne Stewart MD Vaginal discharge ICD-623.5 Inactive Dionne spencer MD Medication List Medication Instructions Start Date Stop Date Generic Name NDC Status Provider Patient Instruction AUGMENTIN 875-125 MG ORAL TABLET 1 po BID x 10 days 09/06/11 AMOXICILLIN-POT CLAVULANATE 93712425376 Active Rosalina Edwina MAIL CARRIER TECHNICIAN Active FERROUS SULFATE 325 (65 FE) MG ORAL TABLET 1 tablet daily 5 FERROUS SULFATE 75821152959 Active Estela Etienne REVENUE MANAGER Active LORATADINE 10 MG ORAL TABLET 1 tablet by mouth daily LORATADINE 17641933055 Active Dionne Stewart MD Active TYLENOL PM EXTRA STRENGTH 500-25 MG ORAL TABLET PRN 12/31 DIPHENHYDRAMINE-APAP (SLEEP) 01289965337 No Longer Active Dionne Stewart MD Active CONCEPT DHA 53.5-38-1 MG ORAL CAPSULE one tab PO daily BVBYGL-AXDKV-XIFW-FA-OMEGA 3 73257075628 Active Dionne Stewart MD Active FLAGYL 500 MG ORAL TABLET 1 tablet PO BID for 7 days 2 METRONIDAZOLE 29313860248 No Longer Active Dionne Stewart MD Active EQL FORMULA 28-0.8 MG ORAL TABLET 1 tablet daily 1 VIT-FE FUMARATE-FA 36813642204 No Longer Active Dionne Stewart MD A ctive CONCEPT DHA 53.5-38-1 MG ORAL CAPSULE one tab PO daily GNURYL-SWATD-XRKN-FA-OMEGA 3 56570758070 No Longer Active Dionne Stewart MD Active CYCLOBENZAPRINE HCL 10 MG ORAL TABLET 1 tablet by mout h three times daily as needed for muscle spasm/pain CYCLOBENZAPRINE HCL 70201562721 No Longer Active Dionne Stewart MD Active TRI-SPRINTEC 0.18/0.215/0.25 MG-35 MCG ORAL TABLET 1 po qd a s directed NORGESTIM-ETH ESTRAD TRIPHASIC 71154867434 N o Longer Active Dionne Stewart MD Active FLAGYL 250 MG ORAL TABLET One tablet three times a day METRONIDAZOLE 30194715022 No Longer Active Cintia Pagan MAIL CARRIER TECHNICIAN Active CVS 28-0.8 MG ORAL TABLET 04/10 VIT-FE FUMARATE-FA 94054418188 No Longer Active Dionne Stewart MD Active CVS 28-0.8 MG ORAL TABLET 04/10 CVS 28-0.8 MG ORAL TABLET VIT-FE FUMARATE-FA Inactive TRI-SPRINTEC 0.18/0.215/0.25 MG-35 MCG ORAL TABLET 1 po qd a s directed TRI-SPRINTEC 0.18/0.215/0.25 MG-35 MCG ORAL TABL ET 600978 NORGESTIM-ETH ESTRAD TRIPHASIC Inactive CYCLOBENZAPRINE HCL 10 MG ORAL TABLET 1 tablet by mout h three times daily as needed for muscle spasm/pain CYCLOBENZAP RINE HCL 10 MG ORAL TABLET 609057 CYCLOBENZAPRINE HCL Inactive CONCEPT DHA 53.5-38-1 MG ORAL CAPSULE one tab PO daily CONCEPT DHA 53.5-38-1 MG ORAL CAPSULE GHMFQU-XBVQD-YCVD-FA-O BILLIE 3 Inactive FLAGYL 500 MG ORAL TABLET 1 tablet PO BID for 7 days 2 FLAGYL 500 MG ORAL TABLET 897529 METRONIDAZOLE Inactive TYLENOL PM EXTRA STRENGTH 500-25 MG ORAL TABLET PRN 12/31 TYLENOL PM EXTRA STRENGTH 500-25 MG ORAL TABLET 4567548 DIPHEN HYDRAMINE-APAP (SLEEP) Inactive FLAGYL 250 MG ORAL TABLET One tablet three times a day FLAGYL 250 MG ORAL TABLET 142424 METRONIDAZOLE Inactive Immunizations Vaccine Administration Date Value [...] 11 .0-15.0 platelet count 226 THOUSAND/UL 10*3/mm3 757-937 4826/05/11 mean platelet volume 10.3 fL 7.5-12.5 Lab [...] SCREEN, RBCW/REFL I , Drug Abuse Pnl 10-50/57083 - Blood bank antibody screen, serum NO ANTIBODIES DETECTED Lab Report: CBC, [id number] Gluc cari-1spec - Hematology leukocyte count, blood [...] N Encounters Code Encounter Date Provider Facility CPT-76970 Level 3 Est. Patient 17:26:51 CDT Rosalina berg [facility] CPT-76217 Level 3 Est. Patient 17:31:05 TECHNICAL SPECIALIST CYTOGENETICS Cintia sommer [facility] Procedures Code Procedure Name Date Entry Date Standard Desc ription CPT-65541 Visit 11:14:16 CDT CPT-12149 Visit 10:54:00 CDT CPT-80886 Visit 16:24:31 CDT CPT-00217 Sono OB comp > 14 weeks - XRAY USE ONLY 12:01:14 CDT CPT-82402 Visit 15:58:08 CDT CPT-74952 Visit 12:16:56 CDT CPT-69939V Sono OB comp <14 weeks ([place] Only) - X RAY USE ONLY 12:09:02 CDT CPT-44043 Spec Collection and Handling Fee 10:11:50 C DT CPT-70931 Visit 10:11:49 CDT CPT-J1050 Depo Provera 150 mg (Medroxyprogesterone) 08/30 16:06:30 TECHNICAL SPECIALIST CYTOGENETICS CPT-80738 Abx/Therapy Injection 16:06:30 TECHNICAL SPECIALIST CYTOGENETICS CPT-J1050 Depo Provera 150 mg (Medroxyprogesterone) 08/30 15:39:17 TECHNICAL SPECIALIST CYTOGENETICS CPT-75958 Visit 15:01:38 CDT CPT-61861 Sono OB comp > 14 weeks 16:05:04 CDT 03/18 CPT-41640 Spec Collection and Handling Fee 10:45:40 C DT CPT-44120 Visit 10:45:40 CDT
--- OUTSIDE RECORDS SUMMARY | 2020-01-04 23:58 | XMS REPORT | Clinical Summary ---
[...] use disorder NEED FOR PROPHYLACTIC VACCINATION WITH UPQSQKC-YPYCA-Q UBELLA (MMR) VACCINE V06.4 Resolved Cintia Pagan APRN Need for prophylactic vaccination with nghiojk-wphcs-kbqkvrt [MMR] vaccine Contraceptive management V25.9 Resolved Taiwo [...] screening 796.5 20 09/03/10 Active Estela Clifton RESTAURANT AREA MANAGER Abnormal finding on antenata l screening Sinusitis, acute frontal 461.1 Active Rosalina berg CARDING SUPERVISOR Acute frontal sinusitis care, delayed ICD-V23.7 Inactive Kristin Pagan CARDING SUPERVISOR NEED FOR PROPHYLACTIC VACCINATION WITH VYDGMIX-HYCJZ-C UBELLA (MMR) VACCINE ICD-V06.4 Inactive Cintia Pagan CARDING SUPERVISOR Contraceptive management ICD-V25.9 Inactive Dionne Stewart MD follow-up, routine ICD-V24.2 Inacti ve Dionne Stewart MD Vaginal discharge ICD-623.5 Inactive Dionne spencer MD Medication List Medication Instructions Start Date Stop Date Generic Name NDC Status Provider Patient Instruction AUGMENTIN 875-125 MG ORAL TABLET 1 po BID x 10 days 09/06/11 AMOXICILLIN-POT CLAVULANATE 14168835292 Active Rosalina Edwina CARDING SUPERVISOR Active FERROUS SULFATE 325 (65 FE) MG ORAL TABLET 1 tablet daily 5 FERROUS SULFATE 23531792261 Active Estela Clifton RESTAURANT AREA MANAGER Active LORATADINE 10 MG ORAL TABLET 1 tablet by mouth daily LORATADINE 48077514489 Active Dionne Stewart MD Active TYLENOL PM EXTRA STRENGTH 500-25 MG ORAL TABLET PRN 12/31 DIPHENHYDRAMINE-APAP (SLEEP) 10477579132 No Longer Active Dionne Stewart MD Active CONCEPT DHA 53.5-38-1 MG ORAL CAPSULE one tab PO daily DCSRSZ-SBGTN-WXUZ-FA-OMEGA 3 18917087291 Active Dionne Stewart MD Active FLAGYL 500 MG ORAL TABLET 1 tablet PO BID for 7 days 2 METRONIDAZOLE 41820795517 No Longer Active Dionne Stewart MD Active EQL FORMULA 28-0.8 MG ORAL TABLET 1 tablet daily 1 VIT-FE FUMARATE-FA 93589338220 No Longer Active Dionne Stewatr MD A ctive CONCEPT DHA 53.5-38-1 MG ORAL CAPSULE one tab PO daily QTGRKF-CUJRR-ZIUQ-FA-OMEGA 3 67863776442 No Longer Active Dionne Stewart MD Active CYCLOBENZAPRINE HCL 10 MG ORAL TABLET 1 tablet by mout h three times daily as needed for muscle spasm/pain CYCLOBENZAPRINE HCL 21295681085 No Longer Active Dionne Stewart MD Active TRI-SPRINTEC 0.18/0.215/0.25 MG-35 MCG ORAL TABLET 1 po qd a s directed NORGESTIM-ETH ESTRAD TRIPHASIC 90977130764 N o Longer Active Dionne Stewart MD Active FLAGYL 250 MG ORAL TABLET One tablet three times a day METRONIDAZOLE 01501057430 No Longer Active Cintia Pagan APRN Active [facility] 28-0.8 MG ORAL TABLET 04/10 VIT-FE FUMARATE-FA 91254679700 No Longer Active Dionne Stewart MD Active [facility] 28-0.8 MG ORAL TABLET 04/10 [facility] 28-0.8 MG ORAL TABLET VIT-FE FUMARATE-FA Inactive TRI-SPRINTEC 0.18/0.215/0.25 MG-35 MCG ORAL TABLET 1 po qd a s directed TRI-SPRINTEC 0.18/0.215/0.25 MG-35 MCG ORAL TABL ET 535274 NORGESTIM-ETH ESTRAD TRIPHASIC Inactive CYCLOBENZAPRINE HCL 10 MG ORAL TABLET 1 tablet by mout h three times daily as needed for muscle spasm/pain CYCLOBENZAP RINE HCL 10 MG ORAL TABLET 352531 CYCLOBENZAPRINE HCL Inactive CONCEPT DHA 53.5-38-1 MG ORAL CAPSULE one tab PO daily CONCEPT DHA 53.5-38-1 MG ORAL CAPSULE EUFTMI-UHWMQ-HVHS-FA-O BILLIE 3 Inactive FLAGYL 500 MG ORAL TABLET 1 tablet PO BID for 7 days 2 FLAGYL 500 MG ORAL TABLET 965878 METRONIDAZOLE Inactive TYLENOL PM EXTRA STRENGTH 500-25 MG ORAL TABLET PRN 12/31 TYLENOL PM EXTRA STRENGTH 500-25 MG ORAL TABLET 2464246 DIPHEN HYDRAMINE-APAP (SLEEP) Inactive FLAGYL 250 MG ORAL TABLET One tablet three times a day FLAGYL 250 MG ORAL TABLET 336411 METRONIDAZOLE Inactive Immunizations Vaccine Administration Date Value [...] 11 .0-15.0 platelet count 226 THOUSAND/UL 10*3/mm3 356-940 9552/05/11 mean platelet volume 10.3 fL 7.5-12.5 Lab [...] SCREEN, RBCW/REFL I , Drug Abuse Pn 10-50/62601 - Blood bank antibody screen, serum NO ANTIBODIES DETECTED Lab Report: CBC, [id number] Gluc cari-1spec - Hematology leukocyte count, blood [...] N Encounters Code Encounter Date Provider Facility CPT-21337 Level 3 Est. Patient 17:26:51 CDT Rosalina berg [facility] CPT-34919 Level 3 Est. Patient 17:31:05 HAND SPRING FORMER Cintia sommer [facility] Procedures Code Procedure Name Date Entry Date Standard Desc ription CPT-79814 Fluzone Thim Free 36mo and older 11:16:54 C DT CPT-78857 Tdap 7yrs or > 11:16:53 CDT CPT-90360 Visit 11:16:53 CDT CPT-57162 Visit 11:14:16 CDT CPT-22700 Visit 10:54:00 CDT CPT-53534 Visit 16:24:31 CDT CPT-28480 Sono OB comp > 14 weeks - XRAY USE ONLY 12:01:14 CDT CPT-35643 Visit 15:58:08 CDT CPT-42021 Visit 12:16:56 CDT CPT-46060E Sono OB comp <14 weeks ([place] Only) - X RAY USE ONLY 12:09:02 CDT CPT-03180 Spec Collection and Handling Fee 10:11:50 C DT CPT-40428 Visit 10:11:49 CDT CPT-J1050 Depo Provera 150 mg (Medroxyprogesterone) 08/30 16:06:30 HAND SPRING FORMER CPT-22144 Abx/Therapy Injection 16:06:30 HAND SPRING FORMER CPT-J1050 Depo Provera 150 mg (Medroxyprogesterone) 08/30 15:39:17 HAND SPRING FORMER CPT-94924 Visit 15:01:38 CDT CPT-54201 Sono OB comp > 14 weeks 16:05:04 CDT 03/18 CPT-60623 Spec Collection and Handling Fee 10:45:40 C DT CPT-63321 Visit 10:45:40 CDT
--- OUTSIDE RECORDS SUMMARY | 2020-01-04 23:58 | XMS REPORT | Clinical Summary ---
[...] use disorder NEED FOR PROPHYLACTIC VACCINATION WITH DAFMAWV-POBVO-P UBELLA (MMR) VACCINE V06.4 Resolved Cintia Pagan APRN Need for prophylactic vaccination with ocosgif-zfqnj-hrafkxx [MMR] vaccine Contraceptive management V25.9 Resolved Taiwo [...] screening 796.5 20 09/03/10 Active Estela Clifton BRAKE ENGINEER Abnormal finding on antenata l screening Sinusitis, acute frontal 461.1 Active Rosalina berg BARREL DRUM CUTTER Acute frontal sinusitis care, delayed ICD-V23.7 Inactive Kristin Pagan BARREL DRUM CUTTER NEED FOR PROPHYLACTIC VACCINATION WITH RPFMENY-HGENV-V UBELLA (MMR) VACCINE ICD-V06.4 Inactive Cnitia Pagan BARREL DRUM CUTTER Contraceptive management ICD-V25.9 Inactive Dionne Stewart MD follow-up, routine ICD-V24.2 Inacti ve Dionne Stewart MD Vaginal discharge ICD-623.5 Inactive Dionne spencer MD Medication List Medication Instructions Start Date Stop Date Generic Name NDC Status Provider Patient Instruction AUGMENTIN 875-125 MG ORAL TABLET 1 po BID x 10 days 09/06/11 AMOXICILLIN-POT CLAVULANATE 03786642342 Active Rosalina Edwina BARREL DRUM CUTTER Active FERROUS SULFATE 325 (65 FE) MG ORAL TABLET 1 tablet daily 5 FERROUS SULFATE 01135929520 Active Estela Etienne BRAKE ENGINEER Active LORATADINE 10 MG ORAL TABLET 1 tablet by mouth daily LORATADINE 44504663803 Active Dionne Stewart MD Active TYLENOL PM EXTRA STRENGTH 500-25 MG ORAL TABLET PRN 12/31 DIPHENHYDRAMINE-APAP (SLEEP) 03552384373 No Longer Active Dionne Stewart MD Active CONCEPT DHA 53.5-38-1 MG ORAL CAPSULE one tab PO daily UXMOBP-OFWRZ-RFDE-FA-OMEGA 3 00603730836 Active Dionne Stewart MD Active FLAGYL 500 MG ORAL TABLET 1 tablet PO BID for 7 days 2 METRONIDAZOLE 63566277815 No Longer Active Dionne Stewart MD Active EQL FORMULA 28-0.8 MG ORAL TABLET 1 tablet daily 1 VIT-FE FUMARATE-FA 50490862566 No Longer Active Dionne Stewart MD A ctive CONCEPT DHA 53.5-38-1 MG ORAL CAPSULE one tab PO daily RFZHNG-YDZZP-IBXJ-FA-OMEGA 3 10662599655 No Longer Active Dionne Stewart MD Active CYCLOBENZAPRINE HCL 10 MG ORAL TABLET 1 tablet by mout h three times daily as needed for muscle spasm/pain CYCLOBENZAPRINE HCL 13216610747 No Longer Active Dionne Stewart MD Active TRI-SPRINTEC 0.18/0.215/0.25 MG-35 MCG ORAL TABLET 1 po qd a s directed NORGESTIM-ETH ESTRAD TRIPHASIC 34303814833 N o Longer Active Dionne Stewart MD Active FLAGYL 250 MG ORAL TABLET One tablet three times a day METRONIDAZOLE 81568081401 No Longer Active Cintia Pagan BARREL DRUM CUTTER Active [facility] 28-0.8 MG ORAL TABLET 04/10 VIT-FE FUMARATE-FA 04184706196 No Longer Active Dionne Stewart MD Active [facility] 28-0.8 MG ORAL TABLET 04/10 [facility] 28-0.8 MG ORAL TABLET VIT-FE FUMARATE-FA Inactive TRI-SPRINTEC 0.18/0.215/0.25 MG-35 MCG ORAL TABLET 1 po qd a s directed TRI-SPRINTEC 0.18/0.215/0.25 MG-35 MCG ORAL TABL ET 898947 NORGESTIM-ETH ESTRAD TRIPHASIC Inactive CYCLOBENZAPRINE HCL 10 MG ORAL TABLET 1 tablet by mout h three times daily as needed for muscle spasm/pain CYCLOBENZAP RINE HCL 10 MG ORAL TABLET 060456 CYCLOBENZAPRINE HCL Inactive CONCEPT DHA 53.5-38-1 MG ORAL CAPSULE one tab PO daily CONCEPT DHA 53.5-38-1 MG ORAL CAPSULE BDJKYS-QMILJ-YIPQ-FA-O BILLIE 3 Inactive FLAGYL 500 MG ORAL TABLET 1 tablet PO BID for 7 days 2 FLAGYL 500 MG ORAL TABLET 868641 METRONIDAZOLE Inactive TYLENOL PM EXTRA STRENGTH 500-25 MG ORAL TABLET PRN 12/31 TYLENOL PM EXTRA STRENGTH 500-25 MG ORAL TABLET 1995637 DIPHEN HYDRAMINE-APAP (SLEEP) Inactive FLAGYL 250 MG ORAL TABLET One tablet three times a day FLAGYL 250 MG ORAL TABLET 970695 METRONIDAZOLE Inactive Immunizations Vaccine Administration Date Value [...] 11 .0-15.0 platelet count 226 THOUSAND/UL 10*3/mm3 721-560 7822/05/11 mean platelet volume 10.3 fL 7.5-12.5 Lab [...] SCREEN, RBCW/REFL I , Drug Abuse Pnl 10-50/75583 - Blood bank antibody screen, serum NO ANTIBODIES DETECTED Lab Report: CBC, [id number] Gluc cari-1spec - Hematology leukocyte count, blood [...] N Encounters Code Encounter Date Provider Facility CPT-89102 Level 3 Est. Patient 17:26:51 CDT Rosalina berg [facility] CPT-54775 Level 3 Est. Patient 17:31:05 ELECTRICAL SUBCONTRACTOR Cintia sommer [facility] Procedures Code Procedure Name Date Entry Date Standard Desc ription CPT-23052 Visit 11:14:16 CDT CPT-82248 Visit 10:54:00 CDT CPT-60123 Visit 16:24:31 CDT CPT-54095 Sono OB comp > 14 weeks - XRAY USE ONLY 12:01:14 CDT CPT-68334 Visit 15:58:08 CDT CPT-51518 Visit 12:16:56 CDT CPT-21377B Sono OB comp <14 weeks ([place] Only) - X RAY USE ONLY 12:09:02 CDT CPT-74061 Spec Collection and Handling Fee 10:11:50 C DT CPT-90742 Visit 10:11:49 CDT CPT-J1050 Depo Provera 150 mg (Medroxyprogesterone) 08/30 16:06:30 ELECTRICAL SUBCONTRACTOR CPT-87155 Abx/Therapy Injection 16:06:30 ELECTRICAL SUBCONTRACTOR CPT-J1050 Depo Provera 150 mg (Medroxyprogesterone) 08/30 15:39:17 ELECTRICAL SUBCONTRACTOR CPT-27673 Visit 15:01:38 CDT CPT-17186 Sono OB comp > 14 weeks 16:05:04 CDT 03/18 CPT-11409 Spec Collection and Handling Fee 10:45:40 C DT CPT-12123 Visit 10:45:40 CDT
--- OUTSIDE RECORDS SUMMARY | 2020-01-04 23:58 | XMS REPORT | Clinical Summary ---
[...] use disorder NEED FOR PROPHYLACTIC VACCINATION WITH SCHKJAJ-DXQXZ-E UBELLA (MMR) VACCINE V06.4 Resolved Cintia Pagan APRN Need for prophylactic vaccination with eupkxmh-jxcut-rzuvfny [MMR] vaccine Contraceptive management V25.9 Resolved Taiwo [...] screening 796.5 20 09/03/10 Active Estela Clifton CABINET MAKER Abnormal finding on antenata l screening Sinusitis, acute frontal 461.1 Active Rosalina berg TITLE ONE READING TEACHER Acute frontal sinusitis care, delayed ICD-V23.7 Inactive Kristin Pagan TITLE ONE READING TEACHER NEED FOR PROPHYLACTIC VACCINATION WITH KBTEARY-KRAAF-E UBELLA (MMR) VACCINE ICD-V06.4 Inactive Cintia Pagan TITLE ONE READING TEACHER Contraceptive management ICD-V25.9 Inactive Dionne Stewart MD follow-up, routine ICD-V24.2 Inacti ve Dionne Stewart MD Vaginal discharge ICD-623.5 Inactive Dionne spencer MD Medication List Medication Instructions Start Date Stop Date Generic Name NDC Status Provider Patient Instruction AUGMENTIN 875-125 MG ORAL TABLET 1 po BID x 10 days 09/06/11 AMOXICILLIN-POT CLAVULANATE 78618506044 Active Rosalina Edwina TITLE ONE READING TEACHER Active FERROUS SULFATE 325 (65 FE) MG ORAL TABLET 1 tablet daily 5 FERROUS SULFATE 99902609170 Active Estela Etienne CABINET MAKER Active LORATADINE 10 MG ORAL TABLET 1 tablet by mouth daily LORATADINE 31102746706 Active Dionne Stewart MD Active TYLENOL PM EXTRA STRENGTH 500-25 MG ORAL TABLET PRN 12/31 DIPHENHYDRAMINE-APAP (SLEEP) 89804312801 No Longer Active Dionne Stewart MD Active CONCEPT DHA 53.5-38-1 MG ORAL CAPSULE one tab PO daily ERZYSA-QTTQN-YQOM-FA-OMEGA 3 49926994530 Active Dionne Stewart MD Active FLAGYL 500 MG ORAL TABLET 1 tablet PO BID for 7 days 2 METRONIDAZOLE 48720342825 No Longer Active Dionne Stewart MD Active EQL FORMULA 28-0.8 MG ORAL TABLET 1 tablet daily 1 VIT-FE FUMARATE-FA 93481720027 No Longer Active Dionne Stewart MD A ctive CONCEPT DHA 53.5-38-1 MG ORAL CAPSULE one tab PO daily EFLTLN-YAJZQ-EMFY-FA-OMEGA 3 59689681487 No Longer Active Dionne Stewart MD Active CYCLOBENZAPRINE HCL 10 MG ORAL TABLET 1 tablet by mout h three times daily as needed for muscle spasm/pain CYCLOBENZAPRINE HCL 62102774380 No Longer Active Dionne tSewart MD Active TRI-SPRINTEC 0.18/0.215/0.25 MG-35 MCG ORAL TABLET 1 po qd a s directed NORGESTIM-ETH ESTRAD TRIPHASIC 85805204698 N o Longer Active Dionne Stewart MD Active FLAGYL 250 MG ORAL TABLET One tablet three times a day METRONIDAZOLE 36972379947 No Longer Active Cintia Pagan TITLE ONE READING TEACHER Active [facility] 28-0.8 MG ORAL TABLET 04/10 VIT-FE FUMARATE-FA 77343002700 No Longer Active Dionne Stewart MD Active [facility] 28-0.8 MG ORAL TABLET 04/10 [facility] 28-0.8 MG ORAL TABLET VIT-FE FUMARATE-FA Inactive TRI-SPRINTEC 0.18/0.215/0.25 MG-35 MCG ORAL TABLET 1 po qd a s directed TRI-SPRINTEC 0.18/0.215/0.25 MG-35 MCG ORAL TABL ET 043964 NORGESTIM-ETH ESTRAD TRIPHASIC Inactive CYCLOBENZAPRINE HCL 10 MG ORAL TABLET 1 tablet by mout h three times daily as needed for muscle spasm/pain CYCLOBENZAP RINE HCL 10 MG ORAL TABLET 772741 CYCLOBENZAPRINE HCL Inactive CONCEPT DHA 53.5-38-1 MG ORAL CAPSULE one tab PO daily CONCEPT DHA 53.5-38-1 MG ORAL CAPSULE IWULSK-DKWHT-CPTS-FA-O BILLIE 3 Inactive FLAGYL 500 MG ORAL TABLET 1 tablet PO BID for 7 days 2 FLAGYL 500 MG ORAL TABLET 325668 METRONIDAZOLE Inactive TYLENOL PM EXTRA STRENGTH 500-25 MG ORAL TABLET PRN 12/31 TYLENOL PM EXTRA STRENGTH 500-25 MG ORAL TABLET 4489079 DIPHEN HYDRAMINE-APAP (SLEEP) Inactive FLAGYL 250 MG ORAL TABLET One tablet three times a day FLAGYL 250 MG ORAL TABLET 935437 METRONIDAZOLE Inactive Immunizations Vaccine Administration Date Value [...] 11 .0-15.0 platelet count 226 THOUSAND/UL 10*3/mm3 438-502 7786/05/11 mean platelet volume 10.3 fL 7.5-12.5 Lab [...] SCREEN, RBCW/REFL I , Drug Abuse Pnl 10-50/33964 - Blood bank antibody screen, serum NO ANTIBODIES DETECTED Lab Report: CBC, [id number] Gluc cari-1spec - Hematology leukocyte count, blood [...] N Encounters Code Encounter Date Provider Facility CPT-83319 Level 3 Est. Patient 17:26:51 CDT Rosalina berg [facility] CPT-88298 Level 3 Est. Patient 17:31:[address] MOT[address] R[address]TE CARRIER Cintia sommer [facility] Procedures Code Procedure Name Date Entry Date Standard Desc ription CPT-75739 Visit 11:14:16 CDT CPT-75428 Visit 10:54:00 CDT CPT-80513 Visit 16:24:31 CDT CPT-57926 Sono OB comp > 14 weeks - XRAY USE ONLY 12:01:14 CDT CPT-84687 Visit 15:58:08 CDT CPT-90323 Visit 12:16:56 CDT CPT-11438K Sono OB comp <14 weeks ([place] Only) - X RAY USE ONLY 12:09:02 CDT CPT-67212 Spec Collection and Handling Fee 10:11:50 C DT CPT-04106 Visit 10:11:49 CDT CPT-J1050 Depo Provera 150 mg (Medroxyprogesterone) 08/30 16:06:[address] MOT[address] R[address]TE CARRIER CPT-84999 Abx/Therapy Injection 16:06:[address] MOT[address] R[address]TE CARRIER CPT-J1050 Depo Provera 150 mg (Medroxyprogesterone) 08/30 15:39:17 MOT[address] R[address]TE CARRIER CPT-60475 Visit 15:01:38 CDT CPT-00961 Sono OB comp > 14 weeks 16:05:04 CDT 03/18 CPT-46706 Spec Collection and Handling Fee 10:45:40 C DT CPT-34042 Visit 10:45:40 CDT
--- OUTSIDE RECORDS SUMMARY | 2020-01-04 23:59 | XMS REPORT | Clinical Summary ---
Author Author Admin, Giuliana Flores Organization [facility] Address Unknown Phone Unavailable Allergies, Adverse Reactions, [...] risk , second trimester V23.9 2014 Active Dinone Stewart MD Supervision of unspecified high -risk care, delayed V23.7 Resolved Cintia flores APRN Supervision of high-risk : insufficient care Drug abuse, hx of V15.89 Active Dionne Stewart MD Other specified personal history presenting hazards to health Tobacco abuse, gestational 305.1 Active Nilda Stewart MD Tobacco use disorder NEED FOR PROPHYLACTIC VACCINATION WITH DZLKHAT-ZNAYJ-C UBELLA (MMR) VACCINE V06.4 Resolved Cintia Pagan APRN Need for prophylactic vaccination with pvoalze-iydcp-zxkxpey [MMR] vaccine Contraceptive management V25.9 Resolved Taiwo [...] screening 796.5 20 09/03/10 Active Estela Clifton LPN Abnormal finding on antenata l screening care, delayed ICD-V23.7 Inactive Kristin Pagan MANAGER BALANCE NEED FOR PROPHYLACTIC VACCINATION WITH AKGHBDI-IFLBI-G UBELLA (MMR) VACCINE ICD-V06.4 Inactive Cintia Pagan MANAGER BALANCE Contraceptive management ICD-V25.9 Inactive Dionne Stewart MD follow-up, routine ICD-V24.2 Inacti ve Dionne Stewart MD Vaginal discharge ICD-623.5 Inactive Dionne spencer MD Medication List Medication Instructions Start Date Stop Date Generic Name NDC Status Provider Patient Instruction LORATADINE 10 MG ORAL TABLET 1 tablet by mouth daily LORATADINE 57627540173 Active Dionne Stewart MD Active TYLENOL PM EXTRA STRENGTH 500-25 MG ORAL TABLET PRN 12/31 DIPHENHYDRAMINE-APAP (SLEEP) 48858496091 No Longer Active Dionne Stewart MD Active CONCEPT DHA 53.5-38-1 MG ORAL CAPSULE one tab PO daily ZKKYQS-DBRRB-ZWLY-FA-OMEGA 3 47776500728 Active Dionne Stewart MD Active FLAGYL 500 MG ORAL TABLET 1 tablet PO BID for 7 days 2 METRONIDAZOLE 33712610530 No Longer Active Dionne Stewart MD Active EQL FORMULA 28-0.8 MG ORAL TABLET 1 tablet daily 1 VIT-FE FUMARATE-FA 59239797828 No Longer Active Dionne Stewart MD A ctive CONCEPT DHA 53.5-38-1 MG ORAL CAPSULE one tab PO daily YERBVZ-XZDQA-CNIX-FA-OMEGA 3 52088373145 No Longer Active Dionne Stewart MD Active CYCLOBENZAPRINE HCL 10 MG ORAL TABLET 1 tablet by mout h three times daily as needed for muscle spasm/pain CYCLOBENZAPRINE HCL 89811358630 No Longer Active Dionne Stewart MD Active TRI-SPRINTEC 0.18/0.215/0.25 MG-35 MCG ORAL TABLET 1 po qd a s directed NORGESTIM-ETH ESTRAD TRIPHASIC 30444191132 N o Longer Active Dionne Stewart MD Active FLAGYL 250 MG ORAL TABLET One tablet three times a day METRONIDAZOLE 09874705680 No Longer Active Cintia Pagan APRN Active [facility] 28-0.8 MG ORAL TABLET 04/10 VIT-FE FUMARATE-FA 77448806719 No Longer Active Dionne Stewart MD Active [facility] 28-0.8 MG ORAL TABLET 04/10 [facility] 28-0.8 MG ORAL TABLET VIT-FE FUMARATE-FA Inactive TRI-SPRINTEC 0.18/0.215/0.25 MG-35 MCG ORAL TABLET 1 po qd a s directed TRI-SPRINTEC 0.18/0.215/0.25 MG-35 MCG ORAL TABL ET 672530 NORGESTIM-ETH ESTRAD TRIPHASIC Inactive CYCLOBENZAPRINE HCL 10 MG ORAL TABLET 1 tablet by mout h three times daily as needed for muscle spasm/pain CYCLOBENZAP RINE HCL 10 MG ORAL TABLET 197479 CYCLOBENZAPRINE HCL Inactive CONCEPT DHA 53.5-38-1 MG ORAL CAPSULE one tab PO daily CONCEPT DHA 53.5-38-1 MG ORAL CAPSULE YNBKVE-QUYGE-DUKP-FA-O BILLIE 3 Inactive FLAGYL 500 MG ORAL TABLET 1 tablet PO BID for 7 days 2 FLAGYL 500 MG ORAL TABLET 533169 METRONIDAZOLE Inactive TYLENOL PM EXTRA STRENGTH 500-25 MG ORAL TABLET PRN 12/31 TYLENOL PM EXTRA STRENGTH 500-25 MG ORAL TABLET 1537502 DIPHEN HYDRAMINE-APAP (SLEEP) Inactive FLAGYL 250 MG ORAL TABLET One tablet three times a day FLAGYL 250 MG ORAL TABLET 465544 METRONIDAZOLE Inactive Immunizations Vaccine Administration Date Value Standard Koko cription hepatitis B vaccine series yes hepat itis B vaccine, unspecified formulation hepatitis B vaccine series no hepat itis B vaccine, unspecified formulation Vital Signs Date Name Value Unit Range Description blood pressure, diastolic 59 mm[Hg] BP miramontes [...] 11 .0-15.0 platelet count 226 THOUSAND/UL 10*3/mm3 037-990 9273/05/11 mean platelet volume 10.3 fL 7.5-12.5 Lab [...] SCREEN, RBCW/REFL I , Drug Abuse Pnl 10-68/11346 - Blood bank antibody screen, serum NO ANTIBODIES DETECTED Lab Report: CBC, [id number] Gluc cari-1spec - Hematology leukocyte count, blood [...] N Encounters Code Encounter Date Provider Facility CPT-89266 Level 3 Est. Patient 17:31:05 MOUSTAPHA sommer [facility] Procedures Code Procedure Name Date Entry Date Standard Desc ription CPT-44743 Visit 11:14:16 CDT CPT-07737 Visit 10:54:00 CDT CPT-07802 Visit 16:24:31 CDT CPT-45812 Sono OB comp > 14 weeks - XRAY USE ONLY 12:01:14 CDT CPT-55649 Visit 15:58:08 CDT CPT-63643 Visit 12:16:56 CDT CPT-76985P Sono OB comp <14 weeks ([place] Only) - X RAY USE ONLY 12:09:02 CDT CPT-85700 Spec Collection and Handling Fee 10:11:50 C DT CPT-89819 Visit 10:11:49 CDT CPT-J1050 Depo Provera 150 mg (Medroxyprogesterone) 08/30 16:06:30 SETTER OFF CPT-16886 Abx/Therapy Injection 16:06:30 SETTER OFF CPT-J1050 Depo Provera 150 mg (Medroxyprogesterone) 08/30 15:39:17 SETTER OFF CPT-58142 Visit 15:01:38 CDT CPT-76027 Sono OB comp > 14 weeks 16:05:04 CDT 03/18 CPT-45032 Spec Collection and Handling Fee 10:45:40 C DT CPT-05731 Visit 10:45:40 CDT
--- OUTSIDE RECORDS SUMMARY | 2020-01-04 23:59 | XMS REPORT | Clinical Summary ---
Author Author Admin, Giuliana Flores Organization [facility] Address Unknown Phone Unavailable Allergies, Adverse [...] use disorder NEED FOR PROPHYLACTIC VACCINATION WITH WXLLSXK-RPMKY-I UBELLA (MMR) VACCINE V06.4 Resolved Cintia Pagan APRN Need for prophylactic vaccination with dlgayfq-fnfqe-lftphkt [MMR] vaccine Contraceptive management V25.9 Resolved Taiwo [...] screening care, delayed ICD-V23.7 Inactive Kristin Pagan FAMILY PRACTITIONER NEED FOR PROPHYLACTIC VACCINATION WITH ALFUNQG-ZGDFH-E UBELLA (MMR) VACCINE ICD-V06.4 Inactive Cintia Pagan FAMILY PRACTITIONER Contraceptive management ICD-V25.9 Inactive Dionne Stewart MD follow-up, routine ICD-V24.2 Inacti ve Dionne Stewart MD Vaginal discharge ICD-623.5 Inactive Dionne spencer MD Medication List Medication Instructions Start Date Stop Date Generic Name NDC Status Provider Patient Instruction LORATADINE 10 MG ORAL TABLET 1 tablet by mouth daily LORATADINE 43469192238 Active Dionne Stewart MD Active TYLENOL PM EXTRA STRENGTH 500-25 MG ORAL TABLET PRN 12/31 DIPHENHYDRAMINE-APAP (SLEEP) 23496884656 No Longer Active Dionne Stewart MD Active CONCEPT DHA 53.5-38-1 MG ORAL CAPSULE one tab PO daily HWVSSU-QFMQO-RTTV-FA-OMEGA 3 10344764068 Active Dionne Stewart MD Active FLAGYL 500 MG ORAL TABLET 1 tablet PO BID for 7 days 2 METRONIDAZOLE 93483509592 No Longer Active Dionne Stewart MD Active EQL FORMULA 28-0.8 MG ORAL TABLET 1 tablet daily 1 VIT-FE FUMARATE-FA 29742198819 No Longer Active Dionne Stewart MD A ctive CONCEPT DHA 53.5-38-1 MG ORAL CAPSULE one tab PO daily RJAGFW-QIWCT-GJRX-FA-OMEGA 3 93811685144 No Longer Active Dionne Stewart MD Active CYCLOBENZAPRINE HCL 10 MG ORAL TABLET 1 tablet by mout h three times daily as needed for muscle spasm/pain CYCLOBENZAPRINE HCL 89540458810 No Longer Active Dionne Stewart MD Active TRI-SPRINTEC 0.18/0.215/0.25 MG-35 MCG ORAL TABLET 1 po qd a s directed NORGESTIM-ETH ESTRAD TRIPHASIC 55138443822 N o Longer Active Dionne Stewart MD Active FLAGYL 250 MG ORAL TABLET One tablet three times a day METRONIDAZOLE 77207920675 No Longer Active Cintia Pagan APRN Active [facility] 28-0.8 MG ORAL TABLET 04/10 VIT-FE FUMARATE-FA 50739096337 No Longer Active Dionne Stewart MD Active CVS 28-0.8 MG ORAL TABLET 04/10 CVS 28-0.8 MG ORAL TABLET VIT-FE FUMARATE-FA Inactive TRI-SPRINTEC 0.18/0.215/0.25 MG-35 MCG ORAL TABLET 1 po qd a s directed TRI-SPRINTEC 0.18/0.215/0.25 MG-35 MCG ORAL TABL ET 837646 NORGESTIM-ETH ESTRAD TRIPHASIC Inactive CYCLOBENZAPRINE HCL 10 MG ORAL TABLET 1 tablet by mout h three times daily as needed for muscle spasm/pain CYCLOBENZAP RINE HCL 10 MG ORAL TABLET 433370 CYCLOBENZAPRINE HCL Inactive CONCEPT DHA 53.5-38-1 MG ORAL CAPSULE one tab PO daily CONCEPT DHA 53.5-38-1 MG ORAL CAPSULE OGPPXY-WIHJU-HZDW-FA-O BILLIE 3 Inactive FLAGYL 500 MG ORAL TABLET 1 tablet PO BID for 7 days 2 FLAGYL 500 MG ORAL TABLET 465368 METRONIDAZOLE Inactive TYLENOL PM EXTRA STRENGTH 500-25 MG ORAL TABLET PRN 12/31 TYLENOL PM EXTRA STRENGTH 500-25 MG ORAL TABLET 6068456 DIPHEN HYDRAMINE-APAP (SLEEP) Inactive FLAGYL 250 MG ORAL TABLET One tablet three times a day FLAGYL 250 MG ORAL TABLET 950728 METRONIDAZOLE Inactive Immunizations Vaccine Administration Date Value [...] 11 .0-15.0 platelet count 226 THOUSAND/UL 10*3/mm3 691-278 9323/05/11 mean platelet volume 10.3 fL 7.5-12.5 Lab [...] SCREEN, RBCW/REFL I , Drug Abuse Pnl 10-06/90358 - Blood bank antibody screen, serum NO ANTIBODIES DETECTED Lab Report: CBC, [id number]--80br Gluc cari-1spec - Hematology leukocyte count, blood [...] N Encounters Code Encounter Date Provider Facility CPT-18631 Level 3 Est. Patient 17:31:05 MOUSTAPHA [facility] Procedures Code Procedure Name Date Entry Date Standard Desc ription CPT-96684 Visit 11:14:16 CDT CPT-30455 Visit 10:54:00 CDT CPT-08165 Visit 16:24:31 CDT CPT-62595 Sono OB comp > 14 weeks - XRAY USE ONLY 12:01:14 CDT CPT-54791 Visit 15:58:08 CDT CPT-56855 Visit 12:16:56 CDT CPT-23407Z Sono OB comp <14 weeks ([place] Only) - X RAY USE ONLY 12:09:02 CDT CPT-68602 Spec Collection and Handling Fee 10:11:50 C DT CPT-80662 Visit 10:11:49 CDT CPT-J1050 Depo Provera 150 mg (Medroxyprogesterone) 08/30 16:06:30 CHIEF ENGINEER WATERWORKS CPT-85012 Abx/Therapy Injection 16:06:30 CHIEF ENGINEER WATERWORKS CPT-J1050 Depo Provera 150 mg (Medroxyprogesterone) 08/30 15:39:17 CHIEF ENGINEER WATERWORKS CPT-92406 Visit 15:01:38 CDT CPT-31370 Sono OB comp > 14 weeks 16:05:04 CDT 03/18 CPT-27551 Spec Collection and Handling Fee 10:45:40 C DT CPT-52578 Visit 10:45:40 CDT
--- OUTSIDE RECORDS SUMMARY | 2020-01-04 23:59 | XMS REPORT | Clinical Summary ---
Author Author Admin, Giuliana Flores Organization [facility] Address Unknown Phone Unavailable Allergies, Adverse Reactions, [...] health Tobacco abuse, gestational 305.1 Active Nilda Stewrat MD Tobacco use disorder NEED FOR PROPHYLACTIC VACCINATION WITH KXTKTOE-EAMVV-W UBELLA (MMR) VACCINE V06.4 Resolved Cintia Pagan APRN Need for prophylactic vaccination with inskorw-wejwe-iyoozjv [MMR] vaccine Contraceptive management V25.9 Resolved Taiwo [...] screening care, delayed ICD-V23.7 Inactive Kristin Pagan CORPORATE TAX PREPARER NEED FOR PROPHYLACTIC VACCINATION WITH FEAYUXP-MZUZM-Y UBELLA (MMR) VACCINE ICD-V06.4 Inactive Cintia Pagan CORPORATE TAX PREPARER Contraceptive management ICD-V25.9 Inactive Dionne Stewart MD follow-up, routine ICD-V24.2 Inacti ve Dionne Stewart MD Vaginal discharge ICD-623.5 Inactive Dionne spencer MD Medication List Medication Instructions Start Date Stop Date Generic Name NDC Status Provider Patient Instruction LORATADINE 10 MG ORAL TABLET 1 tablet by mouth daily LORATADINE 55431326756 Active Dionne Stewart MD Active TYLENOL PM EXTRA STRENGTH 500-25 MG ORAL TABLET PRN 12/31 DIPHENHYDRAMINE-APAP (SLEEP) 49925394788 No Longer Active Dionne Stewart MD Active CONCEPT DHA 53.5-38-1 MG ORAL CAPSULE one tab PO daily FVDTQL-NQQWS-REGB-FA-OMEGA 3 49990770571 Active Dionne Stewart MD Active FLAGYL 500 MG ORAL TABLET 1 tablet PO BID for 7 days 2 METRONIDAZOLE 79293517206 No Longer Active Dionne Stewart MD Active EQL FORMULA 28-0.8 MG ORAL TABLET 1 tablet daily 1 VIT-FE FUMARATE-FA 12738272175 No Longer Active Dionne Stewart MD A ctive CONCEPT DHA 53.5-38-1 MG ORAL CAPSULE one tab PO daily NXKZOH-CZTHG-BOKG-FA-OMEGA 3 39477811322 No Longer Active Dionne Stewart MD Active CYCLOBENZAPRINE HCL 10 MG ORAL TABLET 1 tablet by mout h three times daily as needed for muscle spasm/pain CYCLOBENZAPRINE HCL 93973590942 No Longer Active Dionne Stewart MD Active TRI-SPRINTEC 0.18/0.215/0.25 MG-35 MCG ORAL TABLET 1 po qd a s directed NORGESTIM-ETH ESTRAD TRIPHASIC 01484049161 N o Longer Active Dionne Stewart MD Active FLAGYL 250 MG ORAL TABLET One tablet three times a day METRONIDAZOLE 20812646825 No Longer Active Cintia Pagan APRN Active CVS 28-0.8 MG ORAL TABLET 04/10 VIT-FE FUMARATE-FA 98204972376 No Longer Active Dionne Stewart MD Active CVS 28-0.8 MG ORAL TABLET 04/10 CVS 28-0.8 MG ORAL TABLET VIT-FE FUMARATE-FA Inactive TRI-SPRINTEC 0.18/0.215/0.25 MG-35 MCG ORAL TABLET 1 po qd a s directed TRI-SPRINTEC 0.18/0.215/0.25 MG-35 MCG ORAL TABL ET 689811 NORGESTIM-ETH ESTRAD TRIPHASIC Inactive CYCLOBENZAPRINE HCL 10 MG ORAL TABLET 1 tablet by mout h three times daily as needed for muscle spasm/pain CYCLOBENZAP RINE HCL 10 MG ORAL TABLET 765480 CYCLOBENZAPRINE HCL Inactive CONCEPT DHA 53.5-38-1 MG ORAL CAPSULE one tab PO daily CONCEPT DHA 53.5-38-1 MG ORAL CAPSULE ESQCBD-DCKNF-FKHH-FA-O BILLIE 3 Inactive FLAGYL 500 MG ORAL TABLET 1 tablet PO BID for 7 days 2 FLAGYL 500 MG ORAL TABLET 316501 METRONIDAZOLE Inactive TYLENOL PM EXTRA STRENGTH 500-25 MG ORAL TABLET PRN 12/31 TYLENOL PM EXTRA STRENGTH 500-25 MG ORAL TABLET 2875313 DIPHEN HYDRAMINE-APAP (SLEEP) Inactive FLAGYL 250 MG ORAL TABLET One tablet three times a day FLAGYL 250 MG ORAL TABLET 548100 METRONIDAZOLE Inactive Immunizations Vaccine Administration Date Value [...] 11 .0-15.0 platelet count 226 THOUSAND/UL 10*3/mm3 300-364 2679/05/11 mean platelet volume 10.3 fL 7.5-12.5 Lab [...] rubella antibody, serum, IgG 5.48 Lab Report: CBC, [id number] Gluc cari-1spec - Hematology leukocyte count, blood [...] N Encounters Code Encounter Date Provider Facility CPT-08945 Level 3 Est. Patient 17:31:05 MOUSTAPHA sommer APRN [facility] Procedures Code Procedure Name Date Entry Date Standard Desc ription CPT-49553 Visit 11:14:16 CDT CPT-49378 Visit 10:54:00 CDT CPT-61934 Visit 16:24:31 CDT CPT-30160 Sono OB comp > 14 weeks - XRAY USE ONLY 12:01:14 CDT CPT-17628 Visit 15:58:08 CDT CPT-81273 Visit 12:16:56 CDT CPT-39147F Sono OB comp <14 weeks (Pat Only) - X RAY USE ONLY 12:09:02 CDT CPT-29224 Spec Collection and Handling Fee 10:11:50 C DT CPT-32965 Visit 10:11:49 CDT CPT-J1050 Depo Provera 150 mg (Medroxyprogesterone) 08/30 16:06:30 DEPUTY SHERIFF GENERALIST CPT-36911 Abx/Therapy Injection 16:06:30 DEPUTY SHERIFF GENERALIST CPT-J1050 Depo Provera 150 mg (Medroxyprogesterone) 08/30 15:39:17 DEPUTY SHERIFF GENERALIST CPT-56253 Visit 15:01:38 CDT CPT-82389 Sono OB comp > 14 weeks 16:05:04 CDT 03/18 CPT-02494 Spec Collection and Handling Fee 10:45:40 C DT CPT-00946 Visit 10:45:40 CDT
--- OUTSIDE RECORDS SUMMARY | 2020-01-04 23:59 | XMS REPORT | Clinical Summary ---
Author Author Admin, Giuliana Flores Organization [facility] Address Unknown Phone Unavailable Allergies, Adverse [...] use disorder NEED FOR PROPHYLACTIC VACCINATION WITH UCQOOKL-OVQGG-W UBELLA (MMR) VACCINE V06.4 Resolved Cintia Pagan APRN Need for prophylactic vaccination with aojflmc-sjxnh-fualnuy [MMR] vaccine Contraceptive management V25.9 Resolved Taiwo [...] screening care, delayed ICD-V23.7 Inactive Kristin Pagan REELING OPERATOR NEED FOR PROPHYLACTIC VACCINATION WITH YIAYNDK-ENXUB-G UBELLA (MMR) VACCINE ICD-V06.4 Inactive Cintia Pagan REELING OPERATOR Contraceptive management ICD-V25.9 Inactive Dionne Stewart MD follow-up, routine ICD-V24.2 Inacti ve Dionne Stewart MD Vaginal discharge ICD-623.5 Inactive Dionne spencer MD Medication List Medication Instructions Start Date Stop Date Generic Name NDC Status Provider Patient Instruction FERROUS SULFATE 325 (65 FE) MG ORAL TABLET 1 tablet daily 5 FERROUS SULFATE 02564891638 Active Estela Clifton LPN Active LORATADINE 10 MG ORAL TABLET 1 tablet by mouth daily LORATADINE 02218450229 Active Dionne Stewart MD Active TYLENOL PM EXTRA STRENGTH 500-25 MG ORAL TABLET PRN 12/31 DIPHENHYDRAMINE-APAP (SLEEP) 91496839433 No Longer Active Dionne Stewart MD Active CONCEPT DHA 53.5-38-1 MG ORAL CAPSULE one tab PO daily RFSFCY-VCZPV-KXDC-FA-OMEGA 3 50975252147 Active Dionne Stewart MD Active FLAGYL 500 MG ORAL TABLET 1 tablet PO BID for 7 days 2 METRONIDAZOLE 85447233023 No Longer Active Dionne Stewart MD Active EQL FORMULA 28-0.8 MG ORAL TABLET 1 tablet daily 1 VIT-FE FUMARATE-FA 72562330847 No Longer Active Dionne Stewart MD A ctive CONCEPT DHA 53.5-38-1 MG ORAL CAPSULE one tab PO daily CABDFC-EMJOQ-EDIM-FA-OMEGA 3 34233779286 No Longer Active Dionne Stewart MD Active CYCLOBENZAPRINE HCL 10 MG ORAL TABLET 1 tablet by mout h three times daily as needed for muscle spasm/pain CYCLOBENZAPRINE HCL 25104125613 No Longer Active Dionne Stewart MD Active TRI-SPRINTEC 0.18/0.215/0.25 MG-35 MCG ORAL TABLET 1 po qd a s directed NORGESTIM-ETH ESTRAD TRIPHASIC 79210098679 N o Longer Active Dionne Stewart MD Active FLAGYL 250 MG ORAL TABLET One tablet three times a day METRONIDAZOLE 01671939519 No Longer Active Cintia Pagan APRN Active CVS 28-0.8 MG ORAL TABLET 04/10 VIT-FE FUMARATE-FA 25836993988 No Longer Active Dionne Stewart MD Active CVS 28-0.8 MG ORAL TABLET 04/10 CVS 28-0.8 MG ORAL TABLET VIT-FE FUMARATE-FA Inactive TRI-SPRINTEC 0.18/0.215/0.25 MG-35 MCG ORAL TABLET 1 po qd a s directed TRI-SPRINTEC 0.18/0.215/0.25 MG-35 MCG ORAL TABL ET 408489 NORGESTIM-ETH ESTRAD TRIPHASIC Inactive CYCLOBENZAPRINE HCL 10 MG ORAL TABLET 1 tablet by mout h three times daily as needed for muscle spasm/pain CYCLOBENZAP RINE HCL 10 MG ORAL TABLET 065936 CYCLOBENZAPRINE HCL Inactive CONCEPT DHA 53.5-38-1 MG ORAL CAPSULE one tab PO daily CONCEPT DHA 53.5-38-1 MG ORAL CAPSULE SNMTLE-SXDHS-DVMX-FA-O BILLIE 3 Inactive FLAGYL 500 MG ORAL TABLET 1 tablet PO BID for 7 days 2 FLAGYL 500 MG ORAL TABLET 117514 METRONIDAZOLE Inactive TYLENOL PM EXTRA STRENGTH 500-25 MG ORAL TABLET PRN 12/31 TYLENOL PM EXTRA STRENGTH 500-25 MG ORAL TABLET 4786995 DIPHEN HYDRAMINE-APAP (SLEEP) Inactive FLAGYL 250 MG ORAL TABLET One tablet three times a day FLAGYL 250 MG ORAL TABLET 279404 METRONIDAZOLE Inactive Immunizations Vaccine Administration Date Value [...] 11 .0-15.0 platelet count 226 THOUSAND/UL 10*3/mm3 940-316 0205/05/11 mean platelet volume 10.3 fL 7.5-12.5 Lab [...] SCREEN, RBCW/REFL I , Drug Abuse Pnl 1050/79456 - Blood bank antibody screen, serum NO ANTIBODIES DETECTED Lab Report: CBC, [id number] Gluc cari-1spec - Hematology leukocyte count, blood [...] N Encounters Code Encounter Date Provider Facility CPT-01609 Level 3 Est. Patient 17:31:05 MOUSTAPHA sommer APRN [facility] Procedures Code Procedure Name Date Entry Date Standard Desc ription CPT-54570 Visit 11:14:16 CDT CPT-68452 Visit 10:54:00 CDT CPT-86217 Visit 16:24:31 CDT CPT-10766 Sono OB comp > 14 weeks - XRAY USE ONLY 12:01:14 CDT CPT-26473 Visit 15:58:08 CDT CPT-23897 Visit 12:16:56 CDT CPT-87332I Sono OB comp <14 weeks ([place] Only) - X RAY USE ONLY 12:09:02 CDT CPT-16020 Spec Collection and Handling Fee 10:11:50 C DT CPT-82117 Visit 10:11:49 CDT CPT-J1050 Depo Provera 150 mg (Medroxyprogesterone) 08/30 16:06:30 AIRLINE ATTENDANT CPT-30263 Abx/Therapy Injection 16:06:30 AIRLINE ATTENDANT CPT-J1050 Depo Provera 150 mg (Medroxyprogesterone) 08/30 15:39:17 AIRLINE ATTENDANT CPT-90957 Visit 15:01:38 CDT CPT-44415 Sono OB comp > 14 weeks 16:05:04 CDT 03/18 CPT-37723 Spec Collection and Handling Fee 10:45:40 C DT CPT-53978 Visit 10:45:40 CDT
--- OUTSIDE RECORDS SUMMARY | 2020-01-04 23:59 | XMS REPORT | Clinical Summary ---
Author Author Admin, Giuliana Flores Organization [facility] Address Unknown Phone Unavailable Allergies, Adverse Reactions, [...] use disorder NEED FOR PROPHYLACTIC VACCINATION WITH KVQOCAO-YGECO-A UBELLA (MMR) VACCINE V06.4 Resolved Cintia Pagan APRN Need for prophylactic vaccination with xxelbpy-oiipd-smewiwc [MMR] vaccine Contraceptive management V25.9 Resolved Taiwo [...] screening care, delayed ICD-V23.7 Inactive Kristin Pagan AIRBRUSH ARTIST TECHNICAL NEED FOR PROPHYLACTIC VACCINATION WITH XRYUBDU-UEKPG-N UBELLA (MMR) VACCINE ICD-V06.4 Inactive Cintia Pagan AIRBRUSH ARTIST TECHNICAL Contraceptive management ICD-V25.9 Inactive Dionne Stewart MD follow-up, routine ICD-V24.2 Inacti ve Dionne Stewart MD Vaginal discharge ICD-623.5 Inactive Dionne spencer MD Medication List Medication Instructions Start Date Stop Date Generic Name NDC Status Provider Patient Instruction LORATADINE 10 MG ORAL TABLET 1 tablet by mouth daily LORATADINE 01635549731 Active Dionne Stewart MD Active TYLENOL PM EXTRA STRENGTH 500-25 MG ORAL TABLET PRN 12/31 DIPHENHYDRAMINE-APAP (SLEEP) 49143508881 No Longer Active Dionne Stewart MD Active CONCEPT DHA 53.5-38-1 MG ORAL CAPSULE one tab PO daily DLQKSY-EZYTG-YIWM-FA-OMEGA 3 91406032161 Active Dionne Stewart MD Active FLAGYL 500 MG ORAL TABLET 1 tablet PO BID for 7 days 2 METRONIDAZOLE 14203349021 No Longer Active Dionne Stewart MD Active EQL FORMULA 28-0.8 MG ORAL TABLET 1 tablet daily 1 VIT-FE FUMARATE-FA 63999431983 No Longer Active Dionne Stewart MD A ctive CONCEPT DHA 53.5-38-1 MG ORAL CAPSULE one tab PO daily XPXCGM-LOBRG-PTLF-FA-OMEGA 3 88633992743 No Longer Active Dionne Stewart MD Active CYCLOBENZAPRINE HCL 10 MG ORAL TABLET 1 tablet by mout h three times daily as needed for muscle spasm/pain CYCLOBENZAPRINE HCL 90547726245 No Longer Active Dionne Stewart MD Active TRI-SPRINTEC 0.18/0.215/0.25 MG-35 MCG ORAL TABLET 1 po qd a s directed NORGESTIM-ETH ESTRAD TRIPHASIC 80165406713 N o Longer Active Dionne Stewart MD Active FLAGYL 250 MG ORAL TABLET One tablet three times a day METRONIDAZOLE 23144124386 No Longer Active Cintia Pagan APRN Active CVS 28-0.8 MG ORAL TABLET 04/10 VIT-FE FUMARATE-FA 28297403831 No Longer Active Dionne Stewart MD Active CVS 28-0.8 MG ORAL TABLET 04/10 CVS 28-0.8 MG ORAL TABLET VIT-FE FUMARATE-FA Inactive TRI-SPRINTEC 0.18/0.215/0.25 MG-35 MCG ORAL TABLET 1 po qd a s directed TRI-SPRINTEC 0.18/0.215/0.25 MG-35 MCG ORAL TABL ET 237380 NORGESTIM-ETH ESTRAD TRIPHASIC Inactive CYCLOBENZAPRINE HCL 10 MG ORAL TABLET 1 tablet by mout h three times daily as needed for muscle spasm/pain CYCLOBENZAP RINE HCL 10 MG ORAL TABLET 211696 CYCLOBENZAPRINE HCL Inactive CONCEPT DHA 53.5-38-1 MG ORAL CAPSULE one tab PO daily CONCEPT DHA 53.5-38-1 MG ORAL CAPSULE YLBDTO-IPEWV-ANQV-FA-O BILLIE 3 Inactive FLAGYL 500 MG ORAL TABLET 1 tablet PO BID for 7 days 2 FLAGYL 500 MG ORAL TABLET 749402 METRONIDAZOLE Inactive TYLENOL PM EXTRA STRENGTH 500-25 MG ORAL TABLET PRN 12/31 TYLENOL PM EXTRA STRENGTH 500-25 MG ORAL TABLET 1422954 DIPHEN HYDRAMINE-APAP (SLEEP) Inactive FLAGYL 250 MG ORAL TABLET One tablet three times a day FLAGYL 250 MG ORAL TABLET 216950 METRONIDAZOLE Inactive Immunizations Vaccine Administration Date Value [...] 11 .0-15.0 platelet count 226 THOUSAND/UL 10*3/mm3 250-182 9613/05/11 mean platelet volume 10.3 fL 7.5-12.5 Lab [...] antibody, serum, IgG 5.48 Lab Report: CBC, [id number] Gluc cari-1spec - Hematology leukocyte count, blood [...] N Encounters Code Encounter Date Provider Facility CPT-22568 Level 3 Est. Patient 17:31:05 MOUSTAPHA sommer APRN [facility] Procedures Code Procedure Name Date Entry Date Standard Desc ription CPT-12783 Visit 11:14:16 CDT CPT-52235 Visit 10:54:00 CDT CPT-39355 Visit 16:24:31 CDT CPT-57112 Sono OB comp > 14 weeks - XRAY USE ONLY 12:01:14 CDT CPT-52511 Visit 15:58:08 CDT CPT-92817 Visit 12:16:56 CDT CPT-02361M Sono OB comp <14 weeks ([place] Only) - X RAY USE ONLY 12:09:02 CDT CPT-36915 Spec Collection and Handling Fee 10:11:50 C DT CPT-36743 Visit 10:11:49 CDT CPT-J1050 Depo Provera 150 mg (Medroxyprogesterone) 08/30 16:06:30 PIANO TUNER CPT-30574 Abx/Therapy Injection 16:06:30 PIANO TUNER CPT-J1050 Depo Provera 150 mg (Medroxyprogesterone) 08/30 15:39:17 PIANO TUNER CPT-20367 Visit 15:01:38 CDT CPT-59712 Sono OB comp > 14 weeks 16:05:04 CDT 03/18 CPT-01313 Spec Collection and Handling Fee 10:45:40 C DT CPT-09374 Visit 10:45:40 CDT
[2020-01-05] VITALS (50 sets, daily range): BP systolic 95–134; BP diastolic 50–79
--- OUTSIDE RECORDS SUMMARY | 2020-01-05 | XMS REPORT | Clinical Summary ---
Author Author Admin, Giuliana Flores Organization [facility] Address Unknown Phone Unavailable Allergies, Adverse [...] use disorder NEED FOR PROPHYLACTIC VACCINATION WITH YDFEBZL-WQWWR-D UBELLA (MMR) VACCINE V06.4 Resolved Cintia Pagan APRN Need for prophylactic vaccination with opvozll-gfnqi-vwphrob [MMR] vaccine Contraceptive management V25.9 Resolved Taiwo Stewart MD Encounter for unspecified contraceptive management follow-up, routine V24.2 Resolved 12/31 Dionne Stewart MD Routine follow-up Vaginal discharge 623.5 Resolved Doinne Flores D Leukorrhea, not specified as infective [...] of mother 25 weeks gestation of V28.9 Active 2017 Dionne Stewart MD Encounter for unspecified scre ening of mother Abnormal biochemical finding on screening 796.5 20 09/03/10 Active Estela Clifton BROWNFIELD REDEVELOPMENT SITE MANAGER Abnormal finding on antenata l screening care, delayed ICD-V23.7 Inactive Kristin Pagan COMPUTER DRAFTER NEED FOR PROPHYLACTIC VACCINATION WITH VUZATQA-GTBJQ-S UBELLA (MMR) VACCINE ICD-V06.4 Inactive Cintia Pagan COMPUTER DRAFTER Contraceptive management ICD-V25.9 Inactive Dionne Stewart MD follow-up, routine ICD-V24.2 Inacti ve Dionne Stewart MD Vaginal discharge ICD-623.5 Inactive Dionne spencer MD Medication List Medication Instructions Start Date Stop Date Generic Name NDC Status Provider Patient Instruction TYLENOL PM EXTRA STRENGTH 500-25 MG ORAL TABLET PRN 12/31 DIPHENHYDRAMINE-APAP (SLEEP) 33648486806 No Longer Active Dionne Stewart MD Active CONCEPT DHA 53.5-38-1 MG ORAL CAPSULE one tab PO daily HCXKWR-LPATH-FCIY-FA-OMEGA 3 34442249206 Active Dionne Stewart MD Active FLAGYL 500 MG ORAL TABLET 1 tablet PO BID for 7 days 2 METRONIDAZOLE 14196797828 No Longer Active Dionne Stewart MD Active EQL FORMULA 28-0.8 MG ORAL TABLET 1 tablet daily 1 VIT-FE FUMARATE-FA 79301437587 No Longer Active Dionne Stewart MD A ctive CONCEPT DHA 53.5-38-1 MG ORAL CAPSULE one tab PO daily YRCFTZ-FPORO-LMBD-FA-OMEGA 3 94840912676 No Longer Active Dionne Stewart MD Active CYCLOBENZAPRINE HCL 10 MG ORAL TABLET 1 tablet by mout h three times daily as needed for muscle spasm/pain CYCLOBENZAPRINE HCL 64130107466 No Longer Active Dionne Stewart MD Active TRI-SPRINTEC 0.18/0.215/0.25 MG-35 MCG ORAL TABLET 1 po qd a s directed NORGESTIM-ETH ESTRAD TRIPHASIC 78233704766 N o Longer Active Dionne Stewart MD Active FLAGYL 250 MG ORAL TABLET One tablet three times a day METRONIDAZOLE 21566884164 No Longer Active Cinita Pagan APRN Active [facility]S 28-0.8 MG ORAL TABLET 04/10 VIT-FE FUMARATE-FA 68329498621 No Longer Active Dionne Stewart MD Active CVS 28-0.8 MG ORAL TABLET 04/10 CVS 28-0.8 MG ORAL TABLET VIT-FE FUMARATE-FA Inactive TRI-SPRINTEC 0.18/0.215/0.25 MG-35 MCG ORAL TABLET 1 po qd a s directed TRI-SPRINTEC 0.18/0.215/0.25 MG-35 MCG ORAL TABL ET 146188 NORGESTIM-ETH ESTRAD TRIPHASIC Inactive CYCLOBENZAPRINE HCL 10 MG ORAL TABLET 1 tablet by mout h three times daily as needed for muscle spasm/pain CYCLOBENZAP RINE HCL 10 MG ORAL TABLET 890817 CYCLOBENZAPRINE HCL Inactive CONCEPT DHA 53.5-38-1 MG ORAL CAPSULE one tab PO daily CONCEPT DHA 53.5-38-1 MG ORAL CAPSULE OPSAKJ-AOFAM-JGYB-FA-O BILLIE 3 Inactive FLAGYL 500 MG ORAL TABLET 1 tablet PO BID for 7 days 2 FLAGYL 500 MG ORAL TABLET 741842 METRONIDAZOLE Inactive TYLENOL PM EXTRA STRENGTH 500-25 MG ORAL TABLET PRN 12/31 TYLENOL PM EXTRA STRENGTH 500-25 MG ORAL TABLET 2934632 DIPHEN HYDRAMINE-APAP (SLEEP) Inactive FLAGYL 250 MG ORAL TABLET One tablet three times a day FLAGYL 250 MG ORAL TABLET 251810 METRONIDAZOLE Inactive Immunizations Vaccine Administration Date Value [...] RBCW/REFL I, CBC (INCL ... - Hematology red blood cell distribution width 12.3 % 11 .0-15.0 platelet count 226 THOUSAND/UL 10*3/mm3 837-992 8493/05/11 mean platelet volume 10.3 fL 7.5-12.5 Blood type O mean corpuscular hemoglobin concentration, RBC 33.4 G/DL % 32.0-36.0 mean corpuscular hemoglobin, RBC 31.3 pg 27. 0-33.0 mean corpuscular volume, RBC 93.6 fL 80.0-10 0.0 hematocrit, blood 36.8 % 35.0-45.0 hemoglobin, blood 12.3 g/dL 11.7-15.5 erythrocyte (RBC) count 3.93 MILLION/UL 10*6/mm3 3.80-5. 10 leukocyte count, blood 8.6 THOUSAND/UL 10*3/mm3 3.8-10.8 Lab Report: ABO GROUP & RH TYPE, [...] rubella antibody, serum, IgG 5.48 Lab Report: Thyroid Stimulating Hormone (L), UADIP [...] N Encounters Code Encounter Date Provider Facility CPT-54850 Level 3 Est. Patient 17:31:05 MOUSTAPHA sommer APRN [facility] Procedures Code Procedure Name Date Entry Date Standard Desc ription CPT-33600 Visit 10:54:00 CDT CPT-72512 Visit 16:24:31 CDT CPT-08081 Sono OB comp > 14 weeks - XRAY USE ONLY 12:01:14 CDT CPT-63873 Visit 15:58:08 CDT CPT-79722 Visit 12:16:56 CDT CPT-96590N Sono OB comp <14 weeks ([place] Only) - X RAY USE ONLY 12:09:02 CDT CPT-91047 Spec Collection and Handling Fee 10:11:50 C DT CPT-91241 Visit 10:11:49 CDT CPT-J1050 Depo Provera 150 mg (Medroxyprogesterone) 08/30 16:06:30 CONTROL TECHNICIAN CPT-95757 Abx/Therapy Injection 16:06:30 CONTROL TECHNICIAN CPT-J1050 Depo Provera 150 mg (Medroxyprogesterone) 08/30 15:39:17 CONTROL TECHNICIAN CPT-94764 Visit 15:01:38 CDT CPT-44028 Sono OB comp > 14 weeks 16:05:04 CDT 03/18 CPT-46107 Spec Collection and Handling Fee 10:45:40 C DT CPT-71768 Visit 10:45:40 CDT
--- OUTSIDE RECORDS SUMMARY | 2020-01-05 | XMS REPORT | Clinical Summary ---
Author Author Admin, Giuliana Flores Organization [facility] Address Unknown Phone Unavailable Allergies, Adverse Reactions, [...] use disorder NEED FOR PROPHYLACTIC VACCINATION WITH VLFFTJX-EVSFJ-P UBELLA (MMR) VACCINE V06.4 Resolved Cintia Pagan APRN Need for prophylactic vaccination with ufihzqq-oyvni-zxvlcsq [MMR] vaccine Contraceptive management V25.9 Resolved Taiwo [...] screening 796.5 20 09/03/10 Active Estela Clifton ENVIRONMENTAL GEOLOGIST Abnormal finding on antenata l screening care, delayed ICD-V23.7 Inactive Kristin Pagan SUPERVISOR FIREWORKS ASSEMBLY NEED FOR PROPHYLACTIC VACCINATION WITH HXLZNQV-UTWPE-B UBELLA (MMR) VACCINE ICD-V06.4 Inactive Cintia Pagan SUPERVISOR FIREWORKS ASSEMBLY Contraceptive management ICD-V25.9 Inactive Dionne Stewart MD follow-up, routine ICD-V24.2 Inacti ve Dionne Stewart MD Vaginal discharge ICD-623.5 Inactive Dionne spencer MD Medication List Medication Instructions Start Date Stop Date Generic Name NDC Status Provider Patient Instruction TYLENOL PM EXTRA STRENGTH 500-25 MG ORAL TABLET PRN 12/31 DIPHENHYDRAMINE-APAP (SLEEP) 69523917636 No Longer Active Dionne Stewart MD Active CONCEPT DHA 53.5-38-1 MG ORAL CAPSULE one tab PO daily FSDHHB-SWZUA-IDUB-FA-OMEGA 3 93309761234 Active Dionne Stewart MD Active FLAGYL 500 MG ORAL TABLET 1 tablet PO BID for 7 days 2 METRONIDAZOLE 13745739136 No Longer Active Dionne Stewart MD Active EQL FORMULA 28-0.8 MG ORAL TABLET 1 tablet daily 1 VIT-FE FUMARATE-FA 07611322746 No Longer Active Dionne Stewart MD A ctive CONCEPT DHA 53.5-38-1 MG ORAL CAPSULE one tab PO daily VEPJYD-NTSVO-EFFK-FA-OMEGA 3 63739850067 No Longer Active Dionne Stewart MD Active CYCLOBENZAPRINE HCL 10 MG ORAL TABLET 1 tablet by mout h three times daily as needed for muscle spasm/pain CYCLOBENZAPRINE HCL 70912526314 No Longer Active Dionne Stewart MD Active TRI-SPRINTEC 0.18/0.215/0.25 MG-35 MCG ORAL TABLET 1 po qd a s directed NORGESTIM-ETH ESTRAD TRIPHASIC 61992243071 N o Longer Active Dionne Stewart MD Active FLAGYL 250 MG ORAL TABLET One tablet three times a day METRONIDAZOLE 77885402102 No Longer Active Cintia Pagan APRN Active CVS 28-0.8 MG ORAL TABLET 04/10 VIT-FE FUMARATE-FA 22019259414 No Longer Active Dionne Stewart MD Active CVS 28-0.8 MG ORAL TABLET 04/10 CVS 28-0.8 MG ORAL TABLET VIT-FE FUMARATE-FA Inactive TRI-SPRINTEC 0.18/0.215/0.25 MG-35 MCG ORAL TABLET 1 po qd a s directed TRI-SPRINTEC 0.18/0.215/0.25 MG-35 MCG ORAL TABL ET 458427 NORGESTIM-ETH ESTRAD TRIPHASIC Inactive CYCLOBENZAPRINE HCL 10 MG ORAL TABLET 1 tablet by mout h three times daily as needed for muscle spasm/pain CYCLOBENZAP RINE HCL 10 MG ORAL TABLET 282076 CYCLOBENZAPRINE HCL Inactive CONCEPT DHA 53.5-38-1 MG ORAL CAPSULE one tab PO daily CONCEPT DHA 53.5-38-1 MG ORAL CAPSULE PFFQFG-CNOLD-XHRB-FA-O BILLIE 3 Inactive FLAGYL 500 MG ORAL TABLET 1 tablet PO BID for 7 days 2 FLAGYL 500 MG ORAL TABLET 116788 METRONIDAZOLE Inactive TYLENOL PM EXTRA STRENGTH 500-25 MG ORAL TABLET PRN 12/31 TYLENOL PM EXTRA STRENGTH 500-25 MG ORAL TABLET 3697339 DIPHEN HYDRAMINE-APAP (SLEEP) Inactive FLAGYL 250 MG ORAL TABLET One tablet three times a day FLAGYL 250 MG ORAL TABLET 133156 METRONIDAZOLE Inactive Immunizations Vaccine Administration Date Value [...] 11 .0-15.0 platelet count 226 THOUSAND/UL 10*3/mm3 032-088 4907/05/11 mean platelet volume 10.3 fL 7.5-12.5 Lab [...] N Encounters Code Encounter Date Provider Facility CPT-52223 Level 3 Est. Patient 17:31:05 MOUSTAPHA sommer APRN [facility] Procedures Code Procedure Name Date Entry Date Standard Desc ription CPT-07788 Visit 10:54:00 CDT CPT-46656 Visit 16:24:31 CDT CPT-92665 Sono OB comp > 14 weeks - XRAY USE ONLY 12:01:14 CDT CPT-43022 Visit 15:58:08 CDT CPT-49536 Visit 12:16:56 CDT CPT-36261M Sono OB comp <14 weeks ([place] Only) - X RAY USE ONLY 12:09:02 CDT CPT-03126 Spec Collection and Handling Fee 10:11:50 C DT CPT-77256 Visit 10:11:49 CDT CPT-J1050 Depo Provera 150 mg (Medroxyprogesterone) 08/30 16:06:30 COLLECTIONS OFFICER CPT-15832 Abx/Therapy Injection 16:06:30 COLLECTIONS OFFICER CPT-J1050 Depo Provera 150 mg (Medroxyprogesterone) 08/30 15:39:17 COLLECTIONS OFFICER CPT-27046 Visit 15:01:38 CDT CPT-29365 Sono OB comp > 14 weeks 16:05:04 CDT 03/18 CPT-98912 Spec Collection and Handling Fee 10:45:40 C DT CPT-14546 Visit 10:45:40 CDT
--- OUTSIDE RECORDS SUMMARY | 2020-01-05 | XMS REPORT | Clinical Summary ---
Author Author Admin, Giuliana Flores Organization [facility] Address Unknown Phone Unavailable Allergies, Adverse Reactions, [...] use disorder NEED FOR PROPHYLACTIC VACCINATION WITH ARVBTRN-DLWSU-U UBELLA (MMR) VACCINE V06.4 Resolved Cintia Pagan APRN Need for prophylactic vaccination with blksetk-ltaeh-mniffsv [MMR] vaccine Contraceptive management V25.9 Resolved Taiwo [...] screening care, delayed ICD-V23.7 Inactive Kristin Pagan PORTAL ARCHITECT NEED FOR PROPHYLACTIC VACCINATION WITH EPDICUA-ZUSWX-P UBELLA (MMR) VACCINE ICD-V06.4 Inactive Cintia Pagan PORTAL ARCHITECT Contraceptive management ICD-V25.9 Inactive Dionne Stewart MD follow-up, routine ICD-V24.2 Inacti ve Dionne Stewart MD Vaginal discharge ICD-623.5 Inactive Dionne spencer MD Medication List Medication Instructions Start Date Stop Date Generic Name NDC Status Provider Patient Instruction LORATADINE 10 MG ORAL TABLET 1 tablet by mouth daily LORATADINE 85131276084 Active Dionne Stewart MD Active TYLENOL PM EXTRA STRENGTH 500-25 MG ORAL TABLET PRN 12/31 DIPHENHYDRAMINE-APAP (SLEEP) 88360887684 No Longer Active Dionne Stewart MD Active CONCEPT DHA 53.5-38-1 MG ORAL CAPSULE one tab PO daily WZIFSW-FFIVA-IRFJ-FA-OMEGA 3 86294297653 Active Dionne Stewart MD Active FLAGYL 500 MG ORAL TABLET 1 tablet PO BID for 7 days 2 METRONIDAZOLE 54728837819 No Longer Active Dionne Stewart MD Active EQL FORMULA 28-0.8 MG ORAL TABLET 1 tablet daily 1 VIT-FE FUMARATE-FA 94044355422 No Longer Active Dionne Stewart MD A ctive CONCEPT DHA 53.5-38-1 MG ORAL CAPSULE one tab PO daily YFVFSF-DZWPX-VHUL-FA-OMEGA 3 10560668837 No Longer Active Dionne Stewart MD Active CYCLOBENZAPRINE HCL 10 MG ORAL TABLET 1 tablet by mout h three times daily as needed for muscle spasm/pain CYCLOBENZAPRINE HCL 41732973053 No Longer Active Dionne Stewart MD Active TRI-SPRINTEC 0.18/0.215/0.25 MG-35 MCG ORAL TABLET 1 po qd a s directed NORGESTIM-ETH ESTRAD TRIPHASIC 85754958747 N o Longer Active Dionne Stewart MD Active FLAGYL 250 MG ORAL TABLET One tablet three times a day METRONIDAZOLE 79717514462 No Longer Active Cintia Pagan APRN Active CVS 28-0.8 MG ORAL TABLET 04/10 VIT-FE FUMARATE-FA 63523863189 No Longer Active Dionne Stewart MD Active CVS 28-0.8 MG ORAL TABLET 04/10 CVS 28-0.8 MG ORAL TABLET VIT-FE FUMARATE-FA Inactive TRI-SPRINTEC 0.18/0.215/0.25 MG-35 MCG ORAL TABLET 1 po qd a s directed TRI-SPRINTEC 0.18/0.215/0.25 MG-35 MCG ORAL TABL ET 532592 NORGESTIM-ETH ESTRAD TRIPHASIC Inactive CYCLOBENZAPRINE HCL 10 MG ORAL TABLET 1 tablet by mout h three times daily as needed for muscle spasm/pain CYCLOBENZAP RINE HCL 10 MG ORAL TABLET 734967 CYCLOBENZAPRINE HCL Inactive CONCEPT DHA 53.5-38-1 MG ORAL CAPSULE one tab PO daily CONCEPT DHA 53.5-38-1 MG ORAL CAPSULE NSPZOB-JLJGJ-JAHX-FA-O BILLIE 3 Inactive FLAGYL 500 MG ORAL TABLET 1 tablet PO BID for 7 days 2 FLAGYL 500 MG ORAL TABLET 840422 METRONIDAZOLE Inactive TYLENOL PM EXTRA STRENGTH 500-25 MG ORAL TABLET PRN 12/31 TYLENOL PM EXTRA STRENGTH 500-25 MG ORAL TABLET 3397630 DIPHEN HYDRAMINE-APAP (SLEEP) Inactive FLAGYL 250 MG ORAL TABLET One tablet three times a day FLAGYL 250 MG ORAL TABLET 279312 METRONIDAZOLE Inactive Immunizations Vaccine Administration Date Value [...] 11 .0-15.0 platelet count 226 THOUSAND/UL 10*3/mm3 347-906 7379/05/11 mean platelet volume 10.3 fL 7.5-12.5 Lab [...] N Encounters Code Encounter Date Provider Facility CPT-87249 Level 3 Est. Patient 17:31:05 CENTER MEDICAL DIRECTOR Cintia sommer [facility] Procedures Code Procedure Name Date Entry Date Standard Desc ription CPT-09500 Visit 11:14:16 CDT CPT-92030 Visit 10:54:00 CDT CPT-15643 Visit 16:24:31 CDT CPT-86903 Sono OB comp > 14 weeks - XRAY USE ONLY 12:01:14 CDT CPT-96715 Visit 15:58:08 CDT CPT-00205 Visit 12:16:56 CDT CPT-44875C Sono OB comp <14 weeks ([place] Only) - X RAY USE ONLY 12:09:02 CDT CPT-70547 Spec Collection and Handling Fee 10:11:50 C DT CPT-25824 Visit 10:11:49 CDT CPT-J1050 Depo Provera 150 mg (Medroxyprogesterone) 08/30 16:06:30 CENTER MEDICAL DIRECTOR CPT-24977 Abx/Therapy Injection 16:06:30 CENTER MEDICAL DIRECTOR CPT-J1050 Depo Provera 150 mg (Medroxyprogesterone) 08/30 15:39:17 CENTER MEDICAL DIRECTOR CPT-99350 Visit 15:01:38 CDT CPT-94798 Sono OB comp > 14 weeks 16:05:04 CDT 03/18 CPT-05716 Spec Collection and Handling Fee 10:45:40 C DT CPT-13627 Visit 10:45:40 CDT
--- OUTSIDE RECORDS SUMMARY | 2020-01-05 | XMS REPORT | Clinical Summary ---
Author Author Admin, Giuliana Flores Organization [facility] Address Unknown Phone Unavailable Allergies, Adverse Reactions, [...] use disorder NEED FOR PROPHYLACTIC VACCINATION WITH AEBOPDH-QXTMZ-P UBELLA (MMR) VACCINE V06.4 Resolved Cintia Pagan APRN Need for prophylactic vaccination with wogkkpz-rzxcw-cmdtdyn [MMR] vaccine Contraceptive management V25.9 Resolved Taiwo [...] screening 796.5 20 09/03/10 Active Estela Clifton GRAIN HANDLER Abnormal finding on antenata l screening care, delayed ICD-V23.7 Inactive Kristin Pagan MANAGER OF ENGINEERING NEED FOR PROPHYLACTIC VACCINATION WITH IWZPGSL-ZVWTP-N UBELLA (MMR) VACCINE ICD-V06.4 Inactive Cintia Pagan MANAGER OF ENGINEERING Contraceptive management ICD-V25.9 Inactive Dionne Stewart MD follow-up, routine ICD-V24.2 Inacti ve Dionne Stewart MD Vaginal discharge ICD-623.5 Inactive Dionne spencer MD Medication List Medication Instructions Start Date Stop Date Generic Name NDC Status Provider Patient Instruction TYLENOL PM EXTRA STRENGTH 500-25 MG ORAL TABLET PRN 12/31 DIPHENHYDRAMINE-APAP (SLEEP) 73205471715 No Longer Active Dionne Stewart MD Active CONCEPT DHA 53.5-38-1 MG ORAL CAPSULE one tab PO daily YBHQGY-JKTXP-XUWL-FA-OMEGA 3 76131609550 Active Dionne Stewart MD Active FLAGYL 500 MG ORAL TABLET 1 tablet PO BID for 7 days 2 METRONIDAZOLE 43571156081 No Longer Active Dionne Stewart MD Active EQL FORMULA 28-0.8 MG ORAL TABLET 1 tablet daily 1 VIT-FE FUMARATE-FA 20633925022 No Longer Active Dionne Stewart MD A ctive CONCEPT DHA 53.5-38-1 MG ORAL CAPSULE one tab PO daily COBLWJ-XBTTZ-EJOO-FA-OMEGA 3 17700275273 No Longer Active Dionne Stewart MD Active CYCLOBENZAPRINE HCL 10 MG ORAL TABLET 1 tablet by mout h three times daily as needed for muscle spasm/pain CYCLOBENZAPRINE HCL 61685767438 No Longer Active Dionne Stewart MD Active TRI-SPRINTEC 0.18/0.215/0.25 MG-35 MCG ORAL TABLET 1 po qd a s directed NORGESTIM-ETH ESTRAD TRIPHASIC 79157573783 N o Longer Active Dionne Stewart MD Active FLAGYL 250 MG ORAL TABLET One tablet three times a day METRONIDAZOLE 48781406461 No Longer Active Cintia Pagan APRN Active CVS 28-0.8 MG ORAL TABLET 04/10 VIT-FE FUMARATE-FA 61587688412 No Longer Active Dionne Stewart MD Active CVS 28-0.8 MG ORAL TABLET 04/10 CVS 28-0.8 MG ORAL TABLET VIT-FE FUMARATE-FA Inactive TRI-SPRINTEC 0.18/0.215/0.25 MG-35 MCG ORAL TABLET 1 po qd a s directed TRI-SPRINTEC 0.18/0.215/0.25 MG-35 MCG ORAL TABL ET 721085 NORGESTIM-ETH ESTRAD TRIPHASIC Inactive CYCLOBENZAPRINE HCL 10 MG ORAL TABLET 1 tablet by mout h three times daily as needed for muscle spasm/pain CYCLOBENZAP RINE HCL 10 MG ORAL TABLET 649845 CYCLOBENZAPRINE HCL Inactive CONCEPT DHA 53.5-38-1 MG ORAL CAPSULE one tab PO daily CONCEPT DHA 53.5-38-1 MG ORAL CAPSULE NYFYFR-KATCN-IFNG-FA-O BILLIE 3 Inactive FLAGYL 500 MG ORAL TABLET 1 tablet PO BID for 7 days 2 FLAGYL 500 MG ORAL TABLET 391357 METRONIDAZOLE Inactive TYLENOL PM EXTRA STRENGTH 500-25 MG ORAL TABLET PRN 12/31 TYLENOL PM EXTRA STRENGTH 500-25 MG ORAL TABLET 3634816 DIPHEN HYDRAMINE-APAP (SLEEP) Inactive FLAGYL 250 MG ORAL TABLET One tablet three times a day FLAGYL 250 MG ORAL TABLET 139090 METRONIDAZOLE Inactive Immunizations Vaccine Administration Date Value [...] 11 .0-15.0 platelet count 226 THOUSAND/UL 10*3/mm3 096-130 8709/05/11 mean platelet volume 10.3 fL 7.5-12.5 Lab [...] N Encounters Code Encounter Date Provider Facility CPT-58690 Level 3 Est. Patient 17:31:05 MOUSTAPHA sommer APRN [facility] Procedures Code Procedure Name Date Entry Date Standard Desc ription CPT-81754 Visit 10:54:00 CDT CPT-75333 Visit 16:24:31 CDT CPT-36418 Sono OB comp > 14 weeks - XRAY USE ONLY 12:01:14 CDT CPT-93001 Visit 15:58:08 CDT CPT-72247 Visit 12:16:56 CDT CPT-27441N Sono OB comp <14 weeks ([place] Only) - X RAY USE ONLY 12:09:02 CDT CPT-01071 Spec Collection and Handling Fee 10:11:50 C DT CPT-02135 Visit 10:11:49 CDT CPT-J1050 Depo Provera 150 mg (Medroxyprogesterone) 08/30 16:06:30 DATA GOVERNANCE ANALYST CPT-97195 Abx/Therapy Injection 16:06:30 DATA GOVERNANCE ANALYST CPT-J1050 Depo Provera 150 mg (Medroxyprogesterone) 08/30 15:39:17 DATA GOVERNANCE ANALYST CPT-07371 Visit 15:01:38 CDT CPT-52272 Sono OB comp > 14 weeks 16:05:04 CDT 03/18 CPT-26900 Spec Collection and Handling Fee 10:45:40 C DT CPT-22920 Visit 10:45:40 CDT
--- OUTSIDE RECORDS SUMMARY | 2020-01-05 | XMS REPORT | Clinical Summary ---
Author Author Admin, Giuliana Flores Organization [facility] Address Unknown Phone Unavailable Allergies, Adverse Reactions, [...] use disorder NEED FOR PROPHYLACTIC VACCINATION WITH VOVPRKH-XITNU-J UBELLA (MMR) VACCINE V06.4 Resolved Cintia Pagan APRN Need for prophylactic vaccination with xqcsiex-dhngp-seiijru [MMR] vaccine Contraceptive management V25.9 Resolved Taiwo [...] screening care, delayed ICD-V23.7 Inactive Kristin Pagan INSTRUCTIONAL TECHNOLOGY DIRECTOR NEED FOR PROPHYLACTIC VACCINATION WITH NTVUBJT-WLVGC-A UBELLA (MMR) VACCINE ICD-V06.4 Inactive Cintia Pagan INSTRUCTIONAL TECHNOLOGY DIRECTOR Contraceptive management ICD-V25.9 Inactive Dionne Stewart MD follow-up, routine ICD-V24.2 Inacti ve Dionne Stewart MD Vaginal discharge ICD-623.5 Inactive Dionne spencer MD Medication List Medication Instructions Start Date Stop Date Generic Name NDC Status Provider Patient Instruction LORATADINE 10 MG ORAL TABLET 1 tablet by mouth daily LORATADINE 87994470323 Active Dionne Stewart MD Active TYLENOL PM EXTRA STRENGTH 500-25 MG ORAL TABLET PRN 12/31 DIPHENHYDRAMINE-APAP (SLEEP) 19375987574 No Longer Active Dionne Stewart MD Active CONCEPT DHA 53.5-38-1 MG ORAL CAPSULE one tab PO daily QZNEKZ-EKZLU-EDEY-FA-OMEGA 3 71209794768 Active Dionne Stewart MD Active FLAGYL 500 MG ORAL TABLET 1 tablet PO BID for 7 days 2 METRONIDAZOLE 74989033297 No Longer Active Dionne Stewart MD Active EQL FORMULA 28-0.8 MG ORAL TABLET 1 tablet daily 1 VIT-FE FUMARATE-FA 34572307441 No Longer Active Dionne Stewart MD A ctive CONCEPT DHA 53.5-38-1 MG ORAL CAPSULE one tab PO daily HVAUCV-ZEZLU-ZGUW-FA-OMEGA 3 40650445228 No Longer Active Dionne Stewart MD Active CYCLOBENZAPRINE HCL 10 MG ORAL TABLET 1 tablet by mout h three times daily as needed for muscle spasm/pain CYCLOBENZAPRINE HCL 49707482267 No Longer Active Dionne Stewart MD Active TRI-SPRINTEC 0.18/0.215/0.25 MG-35 MCG ORAL TABLET 1 po qd a s directed NORGESTIM-ETH ESTRAD TRIPHASIC 63155164113 N o Longer Active Dionne Stewart MD Active FLAGYL 250 MG ORAL TABLET One tablet three times a day METRONIDAZOLE 76998795071 No Longer Active Cintia Pagan APRN Active CVS 28-0.8 MG ORAL TABLET 04/10 VIT-FE FUMARATE-FA 99059554591 No Longer Active Dionne Stewart MD Active CVS 28-0.8 MG ORAL TABLET 04/10 CVS 28-0.8 MG ORAL TABLET VIT-FE FUMARATE-FA Inactive TRI-SPRINTEC 0.18/0.215/0.25 MG-35 MCG ORAL TABLET 1 po qd a s directed TRI-SPRINTEC 0.18/0.215/0.25 MG-35 MCG ORAL TABL ET 592038 NORGESTIM-ETH ESTRAD TRIPHASIC Inactive CYCLOBENZAPRINE HCL 10 MG ORAL TABLET 1 tablet by mout h three times daily as needed for muscle spasm/pain CYCLOBENZAP RINE HCL 10 MG ORAL TABLET 401711 CYCLOBENZAPRINE HCL Inactive CONCEPT DHA 53.5-38-1 MG ORAL CAPSULE one tab PO daily CONCEPT DHA 53.5-38-1 MG ORAL CAPSULE BLIKHF-PVDFJ-WOBY-FA-O BILLIE 3 Inactive FLAGYL 500 MG ORAL TABLET 1 tablet PO BID for 7 days 2 FLAGYL 500 MG ORAL TABLET 288767 METRONIDAZOLE Inactive TYLENOL PM EXTRA STRENGTH 500-25 MG ORAL TABLET PRN 12/31 TYLENOL PM EXTRA STRENGTH 500-25 MG ORAL TABLET 2167268 DIPHEN HYDRAMINE-APAP (SLEEP) Inactive FLAGYL 250 MG ORAL TABLET One tablet three times a day FLAGYL 250 MG ORAL TABLET 359694 METRONIDAZOLE Inactive Immunizations Vaccine Administration Date Value [...] 11 .0-15.0 platelet count 226 THOUSAND/UL 10*3/mm3 512-759 7579/05/11 mean platelet volume 10.3 fL 7.5-12.5 Lab [...] N Encounters Code Encounter Date Provider Facility CPT-84431 Level 3 Est. Patient 17:31:05 DOCUMENT MANAGEMENT TECHNICIAN Cintia sommer [facility] Procedures Code Procedure Name Date Entry Date Standard Desc ription CPT-67490 Visit 11:14:16 CDT CPT-06447 Visit 10:54:00 CDT CPT-47972 Visit 16:24:31 CDT CPT-52047 Sono OB comp > 14 weeks - XRAY USE ONLY 12:01:14 CDT CPT-44328 Visit 15:58:08 CDT CPT-56273 Visit 12:16:56 CDT CPT-83540Q Sono OB comp <14 weeks ([place] Only) - X RAY USE ONLY 12:09:02 CDT CPT-53462 Spec Collection and Handling Fee 10:11:50 C DT CPT-68508 Visit 10:11:49 CDT CPT-J1050 Depo Provera 150 mg (Medroxyprogesterone) 08/30 16:06:30 DOCUMENT MANAGEMENT TECHNICIAN CPT-59398 Abx/Therapy Injection 16:06:30 DOCUMENT MANAGEMENT TECHNICIAN CPT-J1050 Depo Provera 150 mg (Medroxyprogesterone) 08/30 15:39:17 DOCUMENT MANAGEMENT TECHNICIAN CPT-12564 Visit 15:01:38 CDT CPT-78906 Sono OB comp > 14 weeks 16:05:04 CDT 03/18 CPT-56400 Spec Collection and Handling Fee 10:45:40 C DT CPT-42790 Visit 10:45:40 CDT
--- OUTSIDE RECORDS SUMMARY | 2020-01-05 | XMS REPORT | Clinical Summary ---
[...] use disorder NEED FOR PROPHYLACTIC VACCINATION WITH LRTSHQA-LRHBS-I UBELLA (MMR) VACCINE V06.4 Resolved Cintia Pagan APRN Need for prophylactic vaccination with pqamtdx-bcmyg-rebwesc [MMR] vaccine Contraceptive management V25.9 Resolved Taiwo [...] screening 796.5 20 09/03/10 Active Estela Clifton KITCHEN SUPERVISOR Abnormal finding on antenata l screening care, delayed ICD-V23.7 Inactive Kristin Pagan MACHINE PLUG SHAPER NEED FOR PROPHYLACTIC VACCINATION WITH CKOEYMR-CBCKT-D UBELLA (MMR) VACCINE ICD-V06.4 Inactive Cintia Pagan MACHINE PLUG SHAPER Contraceptive management ICD-V25.9 Inactive Dionne Stewart MD follow-up, routine ICD-V24.2 Inacti ve Dionne Stewart MD Vaginal discharge ICD-623.5 Inactive Dionne spencer MD Medication List Medication Instructions Start Date Stop Date Generic Name NDC Status Provider Patient Instruction TYLENOL PM EXTRA STRENGTH 500-25 MG ORAL TABLET PRN 12/31 DIPHENHYDRAMINE-APAP (SLEEP) 38105581533 No Longer Active Dionne Stewart MD Active CONCEPT DHA 53.5-38-1 MG ORAL CAPSULE one tab PO daily POGUGB-RQIPB-RHUA-FA-OMEGA 3 49594467661 Active Dionne Stewart MD Active FLAGYL 500 MG ORAL TABLET 1 tablet PO BID for 7 days 2 METRONIDAZOLE 19934559691 No Longer Active Dionne Stewart MD Active EQL FORMULA 28-0.8 MG ORAL TABLET 1 tablet daily 1 VIT-FE FUMARATE-FA 62191807709 No Longer Active Dionne Stewart MD A ctive CONCEPT DHA 53.5-38-1 MG ORAL CAPSULE one tab PO daily YMPPIQ-OHFCY-KBJW-FA-OMEGA 3 58143311615 No Longer Active Dionne Stewart MD Active CYCLOBENZAPRINE HCL 10 MG ORAL TABLET 1 tablet by mout h three times daily as needed for muscle spasm/pain CYCLOBENZAPRINE HCL 83313684810 No Longer Active Dionne Stewart MD Active TRI-SPRINTEC 0.18/0.215/0.25 MG-35 MCG ORAL TABLET 1 po qd a s directed NORGESTIM-ETH ESTRAD TRIPHASIC 19538284186 N o Longer Active Dionne Stewart MD Active FLAGYL 250 MG ORAL TABLET One tablet three times a day METRONIDAZOLE 10373626028 No Longer Active Cintia Pagan APRN Active CVS 28-0.8 MG ORAL TABLET 04/10 VIT-FE FUMARATE-FA 54853791691 No Longer Active Dionne Stewart MD Active CVS 28-0.8 MG ORAL TABLET 04/10 CVS 28-0.8 MG ORAL TABLET VIT-FE FUMARATE-FA Inactive TRI-SPRINTEC 0.18/0.215/0.25 MG-35 MCG ORAL TABLET 1 po qd a s directed TRI-SPRINTEC 0.18/0.215/0.25 MG-35 MCG ORAL TABL ET 751673 NORGESTIM-ETH ESTRAD TRIPHASIC Inactive CYCLOBENZAPRINE HCL 10 MG ORAL TABLET 1 tablet by mout h three times daily as needed for muscle spasm/pain CYCLOBENZAP RINE HCL 10 MG ORAL TABLET 166594 CYCLOBENZAPRINE HCL Inactive CONCEPT DHA 53.5-38-1 MG ORAL CAPSULE one tab PO daily CONCEPT DHA 53.5-38-1 MG ORAL CAPSULE VPBHAX-ZCHAB-BJTS-FA-O BILLIE 3 Inactive FLAGYL 500 MG ORAL TABLET 1 tablet PO BID for 7 days 2 FLAGYL 500 MG ORAL TABLET 438131 METRONIDAZOLE Inactive TYLENOL PM EXTRA STRENGTH 500-25 MG ORAL TABLET PRN 12/31 TYLENOL PM EXTRA STRENGTH 500-25 MG ORAL TABLET 7486047 DIPHEN HYDRAMINE-APAP (SLEEP) Inactive FLAGYL 250 MG ORAL TABLET One tablet three times a day FLAGYL 250 MG ORAL TABLET 439646 METRONIDAZOLE Inactive Immunizations Vaccine Administration Date Value [...] 11 .0-15.0 platelet count 226 THOUSAND/UL 10*3/mm3 090-931 2719/05/11 mean platelet volume 10.3 fL 7.5-12.5 Blood [...] N Encounters Code Encounter Date Provider Facility CPT-70216 Level 3 Est. Patient 17:31:05 MOUSTAPHA sommer APRN [facility] Procedures Code Procedure Name Date Entry Date Standard Desc ription CPT-56199 Visit 10:54:00 CDT CPT-76649 Visit 16:24:31 CDT CPT-96289 Sono OB comp > 14 weeks - XRAY USE ONLY 12:01:14 CDT CPT-40982 Visit 15:58:08 CDT CPT-78020 Visit 12:16:56 CDT CPT-80095J Sono OB comp <14 weeks ([place] Only) - X RAY USE ONLY 12:09:02 CDT CPT-54951 Spec Collection and Handling Fee 10:11:50 C DT CPT-56043 Visit 10:11:49 CDT CPT-J1050 Depo Provera 150 mg (Medroxyprogesterone) 08/30 16:06:30 SOURCING CONSULTANT CPT-69204 Abx/Therapy Injection 16:06:30 SOURCING CONSULTANT CPT-J1050 Depo Provera 150 mg (Medroxyprogesterone) 08/30 15:39:17 SOURCING CONSULTANT CPT-27199 Visit 15:01:38 CDT CPT-20683 Sono OB comp > 14 weeks 16:05:04 CDT 03/18 CPT-14317 Spec Collection and Handling Fee 10:45:40 C DT CPT-04329 Visit 10:45:40 CDT
--- OUTSIDE RECORDS SUMMARY | 2020-01-05 00:01 | XMS REPORT | Clinical Summary ---
[...] use disorder NEED FOR PROPHYLACTIC VACCINATION WITH XHYOTIM-VXGVS-V UBELLA (MMR) VACCINE V06.4 Resolved Cintia Pagan APRN Need for prophylactic vaccination with zjtkmgy-txqom-ybpgsdc [MMR] vaccine Contraceptive management V25.9 Resolved Taiwo [...] of mother 21 weeks gestation of V28.9 Active 2017 Pamela Dailey LRT Encounter for unspecified scre ening of mother Abnormal biochemical finding on screening 796.5 20 09/03/10 Active Estela Clifton [employer]OUNTED POLICE OFFICER Abnormal finding on antenata l screening care, delayed ICD-V23.7 Inactive Kristin Pagan LAND COMMISSIONER NEED FOR PROPHYLACTIC VACCINATION WITH DMZJBZW-ZEVBG-L UBELLA (MMR) VACCINE ICD-V06.4 Inactive Cintia Pagan LAND COMMISSIONER Contraceptive management ICD-V25.9 Inactive Dionne Stewart MD follow-up, routine ICD-V24.2 Inacti ve Dionne Stewart MD Vaginal discharge ICD-623.5 Inactive Dionne spencer MD Medication List Medication Instructions Start Date Stop Date Generic Name NDC Status Provider Patient Instruction TYLENOL PM EXTRA STRENGTH 500-25 MG ORAL TABLET PRN 12/31 DIPHENHYDRAMINE-APAP (SLEEP) [id number] No Longer Active Dionne Stewart MD Active CONCEPT DHA 53.5-38-1 MG ORAL CAPSULE one tab PO daily EZOTNT-OWWBI-AZIF-FA-OMEGA 3 42297362649 Active Dionne Stewart MD Active FLAGYL 500 MG ORAL TABLET 1 tablet PO BID for 7 days 2 METRONIDAZOLE 28824286033 No Longer Active Dionne Stewart MD Active EQL FORMULA 28-0.8 MG ORAL TABLET 1 tablet daily 1 VIT-FE FUMARATE-FA 75147144816 No Longer Active Dionne Stewart MD A ctive CONCEPT DHA 53.5-38-1 MG ORAL CAPSULE one tab PO daily CRTSIQ-IGGEK-EFWR-FA-OMEGA 3 97584318022 No Longer Active Dionne Stewart MD Active CYCLOBENZAPRINE HCL 10 MG ORAL TABLET 1 tablet by mout h three times daily as needed for muscle spasm/pain CYCLOBENZAPRINE HCL 03873416340 No Longer Active Dionne Stewart MD Active TRI-SPRINTEC 0.18/0.215/0.25 MG-35 MCG ORAL TABLET 1 po qd a s directed NORGESTIM-ETH ESTRAD TRIPHASIC 67809759065 N o Longer Active Dionne Stewart MD Active FLAGYL 250 MG ORAL TABLET One tablet three times a day METRONIDAZOLE 03156362963 No Longer Active Cintia Pagan APRN Active [facility] 28-0.8 MG ORAL TABLET 04/10 VIT-FE FUMARATE-FA 30273930252 No Longer Active Dionne Stewart MD Active CVS 28-0.8 MG ORAL TABLET 04/10 CVS 28-0.8 MG ORAL TABLET VIT-FE FUMARATE-FA Inactive TRI-SPRINTEC 0.18/0.215/0.25 MG-35 MCG ORAL TABLET 1 po qd a s directed TRI-SPRINTEC 0.18/0.215/0.25 MG-35 MCG ORAL TABL ET 508764 NORGESTIM-ETH ESTRAD TRIPHASIC Inactive CYCLOBENZAPRINE HCL 10 MG ORAL TABLET 1 tablet by mout h three times daily as needed for muscle spasm/pain CYCLOBENZAP RINE HCL 10 MG ORAL TABLET 711064 CYCLOBENZAPRINE HCL Inactive CONCEPT DHA 53.5-38-1 MG ORAL CAPSULE one tab PO daily CONCEPT DHA 53.5-38-1 MG ORAL CAPSULE BVJIPY-XEDHQ-DWRW-FA-O BILLIE 3 Inactive FLAGYL 500 MG ORAL TABLET 1 tablet PO BID for 7 days 2 FLAGYL 500 MG ORAL TABLET 112572 METRONIDAZOLE Inactive TYLENOL PM EXTRA STRENGTH 500-25 MG ORAL TABLET PRN 12/31 TYLENOL PM EXTRA STRENGTH 500-25 MG ORAL TABLET 5045352 DIPHEN HYDRAMINE-APAP (SLEEP) Inactive FLAGYL 250 MG ORAL TABLET One tablet three times a day FLAGYL 250 MG ORAL TABLET 826613 METRONIDAZOLE Inactive Immunizations Vaccine Administration Date Value Standard Koko cription hepatitis B vaccine series yes hepat itis B vaccine, unspecified formulation hepatitis B vaccine series no hepat itis B vaccine, unspecified formulation Vital Signs Date Name Value Unit Range Description blood pressure, diastolic 50 mm[Hg] BP miramontes [...] 11 .0-15.0 platelet count 226 THOUSAND/UL 10*3/mm3 201-560 7353/05/11 mean platelet volume 10.3 fL 7.5-12.5 Lab [...] N Encounters Code Encounter Date Provider Facility CPT-59573 Level 3 Est. Patient 17:31:05 RETAIL SALES ASSISTANT Cintia sommer [facility] Procedures Code Procedure Name Date Entry Date Standard Desc ription CPT-25772 Visit 16:24:31 CDT CPT-74861 Sono OB comp > 14 weeks - XRAY USE ONLY 12:01:14 CDT CPT-54601 Visit 15:58:08 CDT CPT-59020 Visit 12:16:56 CDT CPT-20241T Sono OB comp <14 weeks (Pat Only) - X RAY USE ONLY 12:09:02 CDT CPT-50287 Spec Collection and Handling Fee 10:11:50 C DT CPT-67898 Visit 10:11:49 CDT CPT-J1050 Depo Provera 150 mg (Medroxyprogesterone) 08/30 16:06:30 RETAIL SALES ASSISTANT CPT-73596 Abx/Therapy Injection 16:06:30 RETAIL SALES ASSISTANT CPT-J1050 Depo Provera 150 mg (Medroxyprogesterone) 08/30 15:39:17 RETAIL SALES ASSISTANT CPT-77263 Visit 15:01:38 CDT CPT-63283 Sono OB comp > 14 weeks 16:05:04 CDT 03/18 CPT-94090 Spec Collection and Handling Fee 10:45:40 C DT CPT-17851 Visit 10:45:40 CDT
--- OUTSIDE RECORDS SUMMARY | 2020-01-05 00:01 | XMS REPORT | Clinical Summary ---
[...] , second trimester V23.9 2014 Active Dionne tSewart MD Supervision of unspecified high -risk care, delayed V23.7 Resolved Cintia flores APRN Supervision of high-risk : insufficient care Drug abuse, hx of V15.89 Active Dionne Stewart MD Other specified personal history presenting hazards to health Tobacco abuse, gestational 305.1 Active Nilda Stewart MD Tobacco use disorder NEED FOR PROPHYLACTIC VACCINATION WITH HCGXIXN-RAHWB-T UBELLA (MMR) VACCINE V06.4 Resolved Cintia Pagan APRN Need for prophylactic vaccination with nxowdno-hfzjl-kxzzkqg [MMR] vaccine Contraceptive management V25.9 Resolved Taiwo [...] screening 796.5 20 09/03/10 Active Estela Clifton STAPLER HAND Abnormal finding on antenata l screening care, delayed ICD-V23.7 Inactive Kristin Pagan BACK LINE COOK NEED FOR PROPHYLACTIC VACCINATION WITH ZCVJQIV-BZBHZ-F UBELLA (MMR) VACCINE ICD-V06.4 Inactive Cintia Pagan BACK LINE COOK Contraceptive management ICD-V25.9 Inactive Dionne Stewart MD follow-up, routine ICD-V24.2 Inacti ve Dionne Stewart MD Vaginal discharge ICD-623.5 Inactive Dionne spencer MD Medication List Medication Instructions Start Date Stop Date Generic Name NDC Status Provider Patient Instruction TYLENOL PM EXTRA STRENGTH 500-25 MG ORAL TABLET PRN 12/31 DIPHENHYDRAMINE-APAP (SLEEP) 42988216668 No Longer Active Dionne Stewart MD Active CONCEPT DHA 53.5-38-1 MG ORAL CAPSULE one tab PO daily LWGQEF-MLAKX-PMFM-FA-OMEGA 3 95761245577 Active Dionne Stewart MD Active FLAGYL 500 MG ORAL TABLET 1 tablet PO BID for 7 days 2 METRONIDAZOLE 68624110705 No Longer Active Dionne Stewart MD Active EQL FORMULA 28-0.8 MG ORAL TABLET 1 tablet daily 1 VIT-FE FUMARATE-FA 53824173428 No Longer Active Dionne Stewart MD A ctive CONCEPT DHA 53.5-38-1 MG ORAL CAPSULE one tab PO daily MIAOOH-WFINS-WGWE-FA-OMEGA 3 13157333895 No Longer Active Dionne Stewart MD Active CYCLOBENZAPRINE HCL 10 MG ORAL TABLET 1 tablet by mout h three times daily as needed for muscle spasm/pain CYCLOBENZAPRINE HCL 64081392551 No Longer Active Dionne Stewart MD Active TRI-SPRINTEC 0.18/0.215/0.25 MG-35 MCG ORAL TABLET 1 po qd a s directed NORGESTIM-ETH ESTRAD TRIPHASIC 31327467235 N o Longer Active Dionne Stewart MD Active FLAGYL 250 MG ORAL TABLET One tablet three times a day METRONIDAZOLE 85918832779 No Longer Active Cintia Pagan APRN Active [facility]S 28-0.8 MG ORAL TABLET 04/10 VIT-FE FUMARATE-FA 13776285180 No Longer Active Dionne Stewart MD Active CVS 28-0.8 MG ORAL TABLET 04/10 CVS 28-0.8 MG ORAL TABLET VIT-FE FUMARATE-FA Inactive TRI-SPRINTEC 0.18/0.215/0.25 MG-35 MCG ORAL TABLET 1 po qd a s directed TRI-SPRINTEC 0.18/0.215/0.25 MG-35 MCG ORAL TABL ET 895111 NORGESTIM-ETH ESTRAD TRIPHASIC Inactive CYCLOBENZAPRINE HCL 10 MG ORAL TABLET 1 tablet by mout h three times daily as needed for muscle spasm/pain CYCLOBENZAP RINE HCL 10 MG ORAL TABLET 274617 CYCLOBENZAPRINE HCL Inactive CONCEPT DHA 53.5-38-1 MG ORAL CAPSULE one tab PO daily CONCEPT DHA 53.5-38-1 MG ORAL CAPSULE QPGFTL-RWFAM-KPFF-FA-O BILLIE 3 Inactive FLAGYL 500 MG ORAL TABLET 1 tablet PO BID for 7 days 2 FLAGYL 500 MG ORAL TABLET 527254 METRONIDAZOLE Inactive TYLENOL PM EXTRA STRENGTH 500-25 MG ORAL TABLET PRN 12/31 TYLENOL PM EXTRA STRENGTH 500-25 MG ORAL TABLET 5146446 DIPHEN HYDRAMINE-APAP (SLEEP) Inactive FLAGYL 250 MG ORAL TABLET One tablet three times a day FLAGYL 250 MG ORAL TABLET 542767 METRONIDAZOLE Inactive Immunizations Vaccine Administration Date Value [...] 11 .0-15.0 platelet count 226 THOUSAND/UL 10*3/mm3 707-966 3024/05/11 mean platelet volume 10.3 fL 7.5-12.5 Lab [...] N Encounters Code Encounter Date Provider Facility CPT-04033 Level 3 Est. Patient 17:31:05 INSPECTOR MATERIAL DISPOSITION Cintia sommer [facility] Procedures Code Procedure Name Date Entry Date Standard Desc ription CPT-16757 Visit 16:24:31 CDT CPT-45771 Sono OB comp > 14 weeks - XRAY USE ONLY 12:01:14 CDT CPT-82935 Visit 15:58:08 CDT CPT-75455 Visit 12:16:56 CDT CPT-84058D Sono OB comp <14 weeks (Pat Only) - X RAY USE ONLY 12:09:02 CDT CPT-73158 Spec Collection and Handling Fee 10:11:50 C DT CPT-87565 Visit 10:11:49 CDT CPT-J1050 Depo Provera 150 mg (Medroxyprogesterone) 08/30 16:06:30 INSPECTOR MATERIAL DISPOSITION CPT-50615 Abx/Therapy Injection 16:06:30 INSPECTOR MATERIAL DISPOSITION CPT-J1050 Depo Provera 150 mg (Medroxyprogesterone) 08/30 15:39:17 INSPECTOR MATERIAL DISPOSITION CPT-92565 Visit 15:01:38 CDT CPT-94429 Sono OB comp > 14 weeks 16:05:04 CDT 03/18 CPT-57846 Spec Collection and Handling Fee 10:45:40 C DT CPT-77146 Visit 10:45:40 CDT
--- OUTSIDE RECORDS SUMMARY | 2020-01-05 00:01 | XMS REPORT | Clinical Summary ---
[...] use disorder NEED FOR PROPHYLACTIC VACCINATION WITH WIUWRXJ-EXIEC-N UBELLA (MMR) VACCINE V06.4 Resolved Cintia Pagan APRN Need for prophylactic vaccination with njvohzk-gijbw-lbuvrjj [MMR] vaccine Contraceptive management V25.9 Resolved Taiwo [...] screening 796.5 20 09/03/10 Active Estela Clifton WEB SIZER Abnormal finding on antenata l screening NEED FOR PROPHYLACTIC VACCINATION WITH JTEWCIR-FWYML-G UBELLA (MMR) VACCINE ICD-V06.4 Inactive Cintia Pagan SOCIAL MEDIA INTERN Contraceptive management ICD-V25.9 Inactive Dionne Stewart MD follow-up, routine ICD-V24.2 Inacti ve Dionne Stewart MD Vaginal discharge ICD-623.5 Inactive Dionne spencer MD care, delayed ICD-V23.7 Inactive Kristin Pagan SOCIAL MEDIA INTERN Medication List Medication Instructions Start Date Stop Date Generic Name NDC Status Provider Patient Instruction TYLENOL PM EXTRA STRENGTH 500-25 MG ORAL TABLET PRN 12/31 DIPHENHYDRAMINE-APAP (SLEEP) [id number] No Longer Active Dionne Stewart MD Active CONCEPT DHA 53.5-38-1 MG ORAL CAPSULE one tab PO daily FUPYJD-QCHMP-KBPT-FA-OMEGA 3 46220590929 Active Dionne Stewart MD Active FLAGYL 500 MG ORAL TABLET 1 tablet PO BID for 7 days 2 METRONIDAZOLE 38006684572 No Longer Active Dionne Stewart MD Active EQL FORMULA 28-0.8 MG ORAL TABLET 1 tablet daily 1 VIT-FE FUMARATE-FA 64466993995 No Longer Active Dionne Stewart MD A ctive CONCEPT DHA 53.5-38-1 MG ORAL CAPSULE one tab PO daily OCCPMS-JYEZA-AVWU-FA-OMEGA 3 09891519343 No Longer Active Dionne Stewart MD Active CYCLOBENZAPRINE HCL 10 MG ORAL TABLET 1 tablet by mout h three times daily as needed for muscle spasm/pain CYCLOBENZAPRINE HCL 44997456807 No Longer Active Dionne Stewart MD Active TRI-SPRINTEC 0.18/0.215/0.25 MG-35 MCG ORAL TABLET 1 po qd a s directed NORGESTIM-ETH ESTRAD TRIPHASIC 02943353840 N o Longer Active Dionne Stewart MD Active FLAGYL 250 MG ORAL TABLET One tablet three times a day METRONIDAZOLE 37266790375 No Longer Active Cintia Pagan APRN Active [facility]S 28-0.8 MG ORAL TABLET 04/10 VIT-FE FUMARATE-FA 54152930823 No Longer Active Dionne Stewart MD Active CVS 28-0.8 MG ORAL TABLET 04/10 CVS 28-0.8 MG ORAL TABLET VIT-FE FUMARATE-FA Inactive TRI-SPRINTEC 0.18/0.215/0.25 MG-35 MCG ORAL TABLET 1 po qd a s directed TRI-SPRINTEC 0.18/0.215/0.25 MG-35 MCG ORAL TABL ET 721267 NORGESTIM-ETH ESTRAD TRIPHASIC Inactive CYCLOBENZAPRINE HCL 10 MG ORAL TABLET 1 tablet by mout h three times daily as needed for muscle spasm/pain CYCLOBENZAP RINE HCL 10 MG ORAL TABLET 373180 CYCLOBENZAPRINE HCL Inactive CONCEPT DHA 53.5-38-1 MG ORAL CAPSULE one tab PO daily CONCEPT DHA 53.5-38-1 MG ORAL CAPSULE IZWKHT-TQUTW-MWWV-FA-O BILLIE 3 Inactive FLAGYL 500 MG ORAL TABLET 1 tablet PO BID for 7 days 2 FLAGYL 500 MG ORAL TABLET 116117 METRONIDAZOLE Inactive TYLENOL PM EXTRA STRENGTH 500-25 MG ORAL TABLET PRN 12/31 TYLENOL PM EXTRA STRENGTH 500-25 MG ORAL TABLET 8471266 DIPHEN HYDRAMINE-APAP (SLEEP) Inactive FLAGYL 250 MG ORAL TABLET One tablet three times a day FLAGYL 250 MG ORAL TABLET 907252 METRONIDAZOLE Inactive Immunizations Vaccine Administration Date Value [...] 11 .0-15.0 platelet count 226 THOUSAND/UL 10*3/mm3 467-516 1797/05/11 mean platelet volume 10.3 fL 7.5-12.5 Lab [...] N Encounters Code Encounter Date Provider Facility CPT-68668 Level 3 Est. Patient 17:31:05 CLINICAL NURSE EDUCATOR Cintia sommer [facility] Procedures Code Procedure Name Date Entry Date Standard Desc ription CPT-96595 Visit 16:24:31 CDT CPT-20756 Sono OB comp > 14 weeks - XRAY USE ONLY 12:01:14 CDT CPT-43145 Visit 15:58:08 CDT CPT-58609 Visit 12:16:56 CDT CPT-86425J Sono OB comp <14 weeks (Pat Only) - X RAY USE ONLY 12:09:02 CDT CPT-42821 Spec Collection and Handling Fee 10:11:50 C DT CPT-07594 Visit 10:11:49 CDT CPT-J1050 Depo Provera 150 mg (Medroxyprogesterone) 08/30 16:06:30 CLINICAL NURSE EDUCATOR CPT-07949 Abx/Therapy Injection 16:06:30 CLINICAL NURSE EDUCATOR CPT-J1050 Depo Provera 150 mg (Medroxyprogesterone) 08/30 15:39:17 CLINICAL NURSE EDUCATOR CPT-44740 Visit 15:01:38 CDT CPT-88509 Sono OB comp > 14 weeks 16:05:04 CDT 03/18 CPT-32197 Spec Collection and Handling Fee 10:45:40 C DT CPT-95711 Visit 10:45:40 CDT
--- OUTSIDE RECORDS SUMMARY | 2020-01-05 00:01 | XMS REPORT | Clinical Summary ---
Author Author Admin, Giuliana Flores Organization [facility] Address Unknown Phone Unavailable Allergies, Adverse Reactions, [...] use disorder NEED FOR PROPHYLACTIC VACCINATION WITH CHOGCAO-IYSDF-P UBELLA (MMR) VACCINE V06.4 Resolved Cintia Pagan APRN Need for prophylactic vaccination with rczqrxk-wpnth-xdwnzgr [MMR] vaccine Contraceptive management V25.9 Resolved Taiwo [...] screening 796.5 20 09/03/10 Active Estela Clifton LEAD PERSON Abnormal finding on antenata l screening care, delayed ICD-V23.7 Inactive Kristin Pagan HEATING ELEMENT BUILDER NEED FOR PROPHYLACTIC VACCINATION WITH QEFPUCJ-FXNKC-E UBELLA (MMR) VACCINE ICD-V06.4 Inactive Cintia Pagan HEATING ELEMENT BUILDER Contraceptive management ICD-V25.9 Inactive Dionne Stewart MD follow-up, routine ICD-V24.2 Inacti ve Dionne Stewart MD Vaginal discharge ICD-623.5 Inactive Dionne spencer MD Medication List Medication Instructions Start Date Stop Date Generic Name NDC Status Provider Patient Instruction TYLENOL PM EXTRA STRENGTH 500-25 MG ORAL TABLET PRN 12/31 DIPHENHYDRAMINE-APAP (SLEEP) 10167321661 No Longer Active Dionne Stewart MD Active CONCEPT DHA 53.5-38-1 MG ORAL CAPSULE one tab PO daily ZJLDJJ-QPHHR-MLOQ-FA-OMEGA 3 14405043936 Active Dionne Stewart MD Active FLAGYL 500 MG ORAL TABLET 1 tablet PO BID for 7 days 2 METRONIDAZOLE 72173526429 No Longer Active Dionne Stewart MD Active EQL FORMULA 28-0.8 MG ORAL TABLET 1 tablet daily 1 VIT-FE FUMARATE-FA 55246213098 No Longer Active Dionne Stewart MD A ctive CONCEPT DHA 53.5-38-1 MG ORAL CAPSULE one tab PO daily VZNMEZ-AIKIR-UYXF-FA-OMEGA 3 58275691369 No Longer Active Dionne Stewart MD Active CYCLOBENZAPRINE HCL 10 MG ORAL TABLET 1 tablet by mout h three times daily as needed for muscle spasm/pain CYCLOBENZAPRINE HCL 51990529523 No Longer Active Dionne Stewart MD Active TRI-SPRINTEC 0.18/0.215/0.25 MG-35 MCG ORAL TABLET 1 po qd a s directed NORGESTIM-ETH ESTRAD TRIPHASIC 35458807136 N o Longer Active Dionne Stewart MD Active FLAGYL 250 MG ORAL TABLET One tablet three times a day METRONIDAZOLE 69770731213 No Longer Active Cintia Pagan APRN Active CVS 28-0.8 MG ORAL TABLET 04/10 VIT-FE FUMARATE-FA 94865808473 No Longer Active Dionne Stewart MD Active CVS 28-0.8 MG ORAL TABLET 04/10 CVS 28-0.8 MG ORAL TABLET VIT-FE FUMARATE-FA Inactive TRI-SPRINTEC 0.18/0.215/0.25 MG-35 MCG ORAL TABLET 1 po qd a s directed TRI-SPRINTEC 0.18/0.215/0.25 MG-35 MCG ORAL TABL ET 346247 NORGESTIM-ETH ESTRAD TRIPHASIC Inactive CYCLOBENZAPRINE HCL 10 MG ORAL TABLET 1 tablet by mout h three times daily as needed for muscle spasm/pain CYCLOBENZAP RINE HCL 10 MG ORAL TABLET 352020 CYCLOBENZAPRINE HCL Inactive CONCEPT DHA 53.5-38-1 MG ORAL CAPSULE one tab PO daily CONCEPT DHA 53.5-38-1 MG ORAL CAPSULE VKDYOC-TJAZO-QLYG-FA-O BILLIE 3 Inactive FLAGYL 500 MG ORAL TABLET 1 tablet PO BID for 7 days 2 FLAGYL 500 MG ORAL TABLET 626606 METRONIDAZOLE Inactive TYLENOL PM EXTRA STRENGTH 500-25 MG ORAL TABLET PRN 12/31 TYLENOL PM EXTRA STRENGTH 500-25 MG ORAL TABLET 7541456 DIPHEN HYDRAMINE-APAP (SLEEP) Inactive FLAGYL 250 MG ORAL TABLET One tablet three times a day FLAGYL 250 MG ORAL TABLET 031848 METRONIDAZOLE Inactive Immunizations Vaccine Administration Date Value [...] 11 .0-15.0 platelet count 226 THOUSAND/UL 10*3/mm3 656-118 9155/05/11 mean platelet volume 10.3 fL 7.5-12.5 Lab [...] N Encounters Code Encounter Date Provider Facility CPT-23709 Level 3 Est. Patient 17:31:05 ELECTRICAL ENGINEERING PROFESSOR Cintia sommer [facility] Procedures Code Procedure Name Date Entry Date Standard Desc ription CPT-44763 Visit 16:24:31 CDT CPT-33712 Sono OB comp > 14 weeks - XRAY USE ONLY 12:01:14 CDT CPT-83685 Visit 15:58:08 CDT CPT-35212 Visit 12:16:56 CDT CPT-58172H Sono OB comp <14 weeks (Pat Only) - X RAY USE ONLY 12:09:02 CDT CPT-47941 Spec Collection and Handling Fee 10:11:50 C DT CPT-69709 Visit 10:11:49 CDT CPT-J1050 Depo Provera 150 mg (Medroxyprogesterone) 08/30 16:06:30 ELECTRICAL ENGINEERING PROFESSOR CPT-02986 Abx/Therapy Injection 16:06:30 ELECTRICAL ENGINEERING PROFESSOR CPT-J1050 Depo Provera 150 mg (Medroxyprogesterone) 08/30 15:39:17 ELECTRICAL ENGINEERING PROFESSOR CPT-51090 Visit 15:01:38 CDT CPT-93022 Sono OB comp > 14 weeks 16:05:04 CDT 03/18 CPT-58327 Spec Collection and Handling Fee 10:45:40 C DT CPT-37024 Visit 10:45:40 CDT
--- OUTSIDE RECORDS SUMMARY | 2020-01-05 00:01 | XMS REPORT | Clinical Summary ---
[...] use disorder NEED FOR PROPHYLACTIC VACCINATION WITH VCOAHIG-BVDHG-X UBELLA (MMR) VACCINE V06.4 Resolved Cintia Pagan APRN Need for prophylactic vaccination with igbygpf-eqjbv-kwoxqgb [MMR] vaccine Contraceptive management V25.9 Resolved Taiwo [...] screening 796.5 20 09/03/10 Active Estela Clifton BIOINFORMATICS RESEARCH TECHNICIAN Abnormal finding on antenata l screening care, delayed ICD-V23.7 Inactive Kristin Pagan EDITOR BOOK NEED FOR PROPHYLACTIC VACCINATION WITH TBBOJUM-LIHAM-T UBELLA (MMR) VACCINE ICD-V06.4 Inactive Cintia Pagan EDITOR BOOK Contraceptive management ICD-V25.9 Inactive Dionne Stewart MD follow-up, routine ICD-V24.2 Inacti ve Dionne Stewart MD Vaginal discharge ICD-623.5 Inactive Dionne spencer MD Medication List Medication Instructions Start Date Stop Date Generic Name NDC Status Provider Patient Instruction TYLENOL PM EXTRA STRENGTH 500-25 MG ORAL TABLET PRN 12/31 DIPHENHYDRAMINE-APAP (SLEEP) 14708189521 No Longer Active Dionne Stewart MD Active CONCEPT DHA 53.5-38-1 MG ORAL CAPSULE one tab PO daily TBLPYR-ZELLP-OZHX-FA-OMEGA 3 89834314002 Active Dionne Stewart MD Active FLAGYL 500 MG ORAL TABLET 1 tablet PO BID for 7 days 2 METRONIDAZOLE 29473183146 No Longer Active Dionne Stewart MD Active EQL FORMULA 28-0.8 MG ORAL TABLET 1 tablet daily 1 VIT-FE FUMARATE-FA 96173384512 No Longer Active Dionne Stewart MD A ctive CONCEPT DHA 53.5-38-1 MG ORAL CAPSULE one tab PO daily HYDNZK-WQSWQ-RJTR-FA-OMEGA 3 80068926917 No Longer Active Dionne Stewart MD Active CYCLOBENZAPRINE HCL 10 MG ORAL TABLET 1 tablet by mout h three times daily as needed for muscle spasm/pain CYCLOBENZAPRINE HCL 98157518616 No Longer Active Dionne Stewart MD Active TRI-SPRINTEC 0.18/0.215/0.25 MG-35 MCG ORAL TABLET 1 po qd a s directed NORGESTIM-ETH ESTRAD TRIPHASIC 60440699220 N o Longer Active Dionne Stewart MD Active FLAGYL 250 MG ORAL TABLET One tablet three times a day METRONIDAZOLE 96669649480 No Longer Active Cintia Pagan APRN Active CVS 28-0.8 MG ORAL TABLET 04/10 VIT-FE FUMARATE-FA 62888404108 No Longer Active Dionne Stewart MD Active CVS 28-0.8 MG ORAL TABLET 04/10 CVS 28-0.8 MG ORAL TABLET VIT-FE FUMARATE-FA Inactive TRI-SPRINTEC 0.18/0.215/0.25 MG-35 MCG ORAL TABLET 1 po qd a s directed TRI-SPRINTEC 0.18/0.215/0.25 MG-35 MCG ORAL TABL ET 402504 NORGESTIM-ETH ESTRAD TRIPHASIC Inactive CYCLOBENZAPRINE HCL 10 MG ORAL TABLET 1 tablet by mout h three times daily as needed for muscle spasm/pain CYCLOBENZAP RINE HCL 10 MG ORAL TABLET 231279 CYCLOBENZAPRINE HCL Inactive CONCEPT DHA 53.5-38-1 MG ORAL CAPSULE one tab PO daily CONCEPT DHA 53.5-38-1 MG ORAL CAPSULE IXIHTB-ERCTW-ZAFZ-FA-O BILLIE 3 Inactive FLAGYL 500 MG ORAL TABLET 1 tablet PO BID for 7 days 2 FLAGYL 500 MG ORAL TABLET 104817 METRONIDAZOLE Inactive TYLENOL PM EXTRA STRENGTH 500-25 MG ORAL TABLET PRN 12/31 TYLENOL PM EXTRA STRENGTH 500-25 MG ORAL TABLET 4719943 DIPHEN HYDRAMINE-APAP (SLEEP) Inactive FLAGYL 250 MG ORAL TABLET One tablet three times a day FLAGYL 250 MG ORAL TABLET 780021 METRONIDAZOLE Inactive Immunizations Vaccine Administration Date Value [...] 11 .0-15.0 platelet count 226 THOUSAND/UL 10*3/mm3 382-886 6090/05/11 mean platelet volume 10.3 fL 7.5-12.5 Lab [...] N Encounters Code Encounter Date Provider Facility CPT-61182 Level 3 Est. Patient 17:31:05 CHAIN PERSON Cintia sommer [facility] Procedures Code Procedure Name Date Entry Date Standard Desc ription CPT-63667 Visit 16:24:31 CDT CPT-77013 Sono OB comp > 14 weeks - XRAY USE ONLY 12:01:14 CDT CPT-67867 Visit 15:58:08 CDT CPT-06032 Visit 12:16:56 CDT CPT-70510W Sono OB comp <14 weeks (Pat Only) - X RAY USE ONLY 12:09:02 CDT CPT-76961 Spec Collection and Handling Fee 10:11:50 C DT CPT-43695 Visit 10:11:49 CDT CPT-J1050 Depo Provera 150 mg (Medroxyprogesterone) 08/30 16:06:30 CHAIN PERSON CPT-68594 Abx/Therapy Injection 16:06:30 CHAIN PERSON CPT-J1050 Depo Provera 150 mg (Medroxyprogesterone) 08/30 15:39:17 CHAIN PERSON CPT-26867 Visit 15:01:38 CDT CPT-31511 Sono OB comp > 14 weeks 16:05:04 CDT 03/18 CPT-60628 Spec Collection and Handling Fee 10:45:40 C DT CPT-34694 Visit 10:45:40 CDT
--- OUTSIDE RECORDS SUMMARY | 2020-01-05 00:02 | XMS REPORT | Clinical Summary ---
Author Author Admin, Giuliana Flores Organization [facility] Address Unknown Phone Unavailable Allergies, Adverse [...] use disorder NEED FOR PROPHYLACTIC VACCINATION WITH RNOATVV-HWGJJ-K UBELLA (MMR) VACCINE V06.4 Resolved Cintia Paagn APRN Need for prophylactic vaccination with awrpkrx-vssll-gvvjgdm [MMR] vaccine Contraceptive management V25.9 Resolved Taiwo [...] screening 796.5 20 09/03/10 Active Estela Clifton NECK CUTTER Abnormal finding on antenata l screening care, delayed ICD-V23.7 Inactive Kristin Pagan NURSE SUBSTANCE ABUSE NEED FOR PROPHYLACTIC VACCINATION WITH ABJKZTQ-PFMPV-C UBELLA (MMR) VACCINE ICD-V06.4 Inactive Cintia Pagan NURSE SUBSTANCE ABUSE Contraceptive management ICD-V25.9 Inactive Dionne Stewart MD follow-up, routine ICD-V24.2 Inacti ve Dionne Stewart MD Vaginal discharge ICD-623.5 Inactive Dionne spencer MD Medication List Medication Instructions Start Date Stop Date Generic Name NDC Status Provider Patient Instruction TYLENOL PM EXTRA STRENGTH 500-25 MG ORAL TABLET PRN 12/31 DIPHENHYDRAMINE-APAP (SLEEP) 94056102625 No Longer Active Dionne Stewart MD Active CONCEPT DHA 53.5-38-1 MG ORAL CAPSULE one tab PO daily EFRIRI-BAILQ-IVWV-FA-OMEGA 3 88988275411 Active Dionne Stewart MD Active FLAGYL 500 MG ORAL TABLET 1 tablet PO BID for 7 days 2 METRONIDAZOLE 49436029582 No Longer Active Dionne Stewart MD Active EQL FORMULA 28-0.8 MG ORAL TABLET 1 tablet daily 1 VIT-FE FUMARATE-FA 30533482712 No Longer Active Dionne Stewart MD A ctive CONCEPT DHA 53.5-38-1 MG ORAL CAPSULE one tab PO daily VFVUKW-YOZDB-KFLT-FA-OMEGA 3 06762953286 No Longer Active Dionne Stewart MD Active CYCLOBENZAPRINE HCL 10 MG ORAL TABLET 1 tablet by mout h three times daily as needed for muscle spasm/pain CYCLOBENZAPRINE HCL 17100714032 No Longer Active Dionne Stewart MD Active TRI-SPRINTEC 0.18/0.215/0.25 MG-35 MCG ORAL TABLET 1 po qd a s directed NORGESTIM-ETH ESTRAD TRIPHASIC 51485862347 N o Longer Active Dionne Stewart MD Active FLAGYL 250 MG ORAL TABLET One tablet three times a day METRONIDAZOLE 02007771145 No Longer Active Cintia Pagan APRN Active [facility] 28-0.8 MG ORAL TABLET 04/10 VIT-FE FUMARATE-FA 22412488671 No Longer Active Dionne Stewart MD Active CVS 28-0.8 MG ORAL TABLET 04/10 CVS 28-0.8 MG ORAL TABLET VIT-FE FUMARATE-FA Inactive TRI-SPRINTEC 0.18/0.215/0.25 MG-35 MCG ORAL TABLET 1 po qd a s directed TRI-SPRINTEC 0.18/0.215/0.25 MG-35 MCG ORAL TABL ET 820684 NORGESTIM-ETH ESTRAD TRIPHASIC Inactive CYCLOBENZAPRINE HCL 10 MG ORAL TABLET 1 tablet by mout h three times daily as needed for muscle spasm/pain CYCLOBENZAP RINE HCL 10 MG ORAL TABLET 617421 CYCLOBENZAPRINE HCL Inactive CONCEPT DHA 53.5-38-1 MG ORAL CAPSULE one tab PO daily CONCEPT DHA 53.5-38-1 MG ORAL CAPSULE FHICBW-UBGVR-YKWZ-FA-O BILLIE 3 Inactive FLAGYL 500 MG ORAL TABLET 1 tablet PO BID for 7 days 2 FLAGYL 500 MG ORAL TABLET 138662 METRONIDAZOLE Inactive TYLENOL PM EXTRA STRENGTH 500-25 MG ORAL TABLET PRN 12/31 TYLENOL PM EXTRA STRENGTH 500-25 MG ORAL TABLET 5938112 DIPHEN HYDRAMINE-APAP (SLEEP) Inactive FLAGYL 250 MG ORAL TABLET One tablet three times a day FLAGYL 250 MG ORAL TABLET 937980 METRONIDAZOLE Inactive Immunizations Vaccine Administration Date Value [...] 11 .0-15.0 platelet count 226 THOUSAND/UL 10*3/mm3 018-649 3192/05/11 mean platelet volume 10.3 fL 7.5-12.5 Lab [...] N Encounters Code Encounter Date Provider Facility CPT-73507 Level 3 Est. Patient 17:31:05 REGISTERED MIDWIFE Cintia sommer [facility] Procedures Code Procedure Name Date Entry Date Standard Desc ription CPT-72184 Visit 16:24:31 CDT CPT-56201 Sono OB comp > 14 weeks - XRAY USE ONLY 12:01:14 CDT CPT-52051 Visit 15:58:08 CDT CPT-07775 Visit 12:16:56 CDT CPT-73764H Sono OB comp <14 weeks (Pat Only) - X RAY USE ONLY 12:09:02 CDT CPT-85664 Spec Collection and Handling Fee 10:11:50 C DT CPT-83186 Visit 10:11:49 CDT CPT-J1050 Depo Provera 150 mg (Medroxyprogesterone) 08/30 16:06:30 REGISTERED MIDWIFE CPT-38247 Abx/Therapy Injection 16:06:30 REGISTERED MIDWIFE CPT-J1050 Depo Provera 150 mg (Medroxyprogesterone) 08/30 15:39:17 REGISTERED MIDWIFE CPT-21459 Visit 15:01:38 CDT CPT-46633 Sono OB comp > 14 weeks 16:05:04 CDT 03/18 CPT-96850 Spec Collection and Handling Fee 10:45:40 C DT CPT-70387 Visit 10:45:40 CDT
--- OUTSIDE RECORDS SUMMARY | 2020-01-05 00:02 | XMS REPORT | Clinical Summary ---
Author Author Admin, Giuliana Flores Organization [facility] Address Unknown Phone Unavailable Allergies, Adverse [...] use disorder NEED FOR PROPHYLACTIC VACCINATION WITH NXDSEQE-DDAAK-V UBELLA (MMR) VACCINE V06.4 Resolved Cintia Pagan APRN Need for prophylactic vaccination with lwxsknm-divxw-jzckiak [MMR] vaccine Contraceptive management V25.9 Resolved Taiwo [...] screening 796.5 20 09/03/10 Active Estela Clifton WEED BURNER Abnormal finding on antenata l screening care, delayed ICD-V23.7 Inactive Kristin Pagan HAULAGE BOSS NEED FOR PROPHYLACTIC VACCINATION WITH HXBGKRZ-LFJKU-T UBELLA (MMR) VACCINE ICD-V06.4 Inactive Cintia Pagan HAULAGE BOSS Contraceptive management ICD-V25.9 Inactive Dionne Stewart MD follow-up, routine ICD-V24.2 Inacti ve Dionne Stewart MD Vaginal discharge ICD-623.5 Inactive Dionne spencer MD Medication List Medication Instructions Start Date Stop Date Generic Name NDC Status Provider Patient Instruction TYLENOL PM EXTRA STRENGTH 500-25 MG ORAL TABLET PRN 12/31 DIPHENHYDRAMINE-APAP (SLEEP) 94009962757 No Longer Active Dionne Stewart MD Active CONCEPT DHA 53.5-38-1 MG ORAL CAPSULE one tab PO daily DAAEAO-ILISV-YHZX-FA-OMEGA 3 50549992422 Active Dionne Stewart MD Active FLAGYL 500 MG ORAL TABLET 1 tablet PO BID for 7 days 2 METRONIDAZOLE 49611777569 No Longer Active Dionne Stewart MD Active EQL FORMULA 28-0.8 MG ORAL TABLET 1 tablet daily 1 VIT-FE FUMARATE-FA 75020050031 No Longer Active Dionne Stewart MD A ctive CONCEPT DHA 53.5-38-1 MG ORAL CAPSULE one tab PO daily PZEVOM-KMFEF-ZPUB-FA-OMEGA 3 85025191078 No Longer Active Dionne Stewart MD Active CYCLOBENZAPRINE HCL 10 MG ORAL TABLET 1 tablet by mout h three times daily as needed for muscle spasm/pain CYCLOBENZAPRINE HCL 89335943251 No Longer Active Dionne Stewart MD Active TRI-SPRINTEC 0.18/0.215/0.25 MG-35 MCG ORAL TABLET 1 po qd a s directed NORGESTIM-ETH ESTRAD TRIPHASIC 00779901976 N o Longer Active Dionne Stewart MD Active FLAGYL 250 MG ORAL TABLET One tablet three times a day METRONIDAZOLE 20088870283 No Longer Active Cintia Pagan APRN Active [facility] 28-0.8 MG ORAL TABLET 04/10 VIT-FE FUMARATE-FA 40807324839 No Longer Active Dionne Stewart MD Active CVS 28-0.8 MG ORAL TABLET 04/10 CVS 28-0.8 MG ORAL TABLET VIT-FE FUMARATE-FA Inactive TRI-SPRINTEC 0.18/0.215/0.25 MG-35 MCG ORAL TABLET 1 po qd a s directed TRI-SPRINTEC 0.18/0.215/0.25 MG-35 MCG ORAL TABL ET 071567 NORGESTIM-ETH ESTRAD TRIPHASIC Inactive CYCLOBENZAPRINE HCL 10 MG ORAL TABLET 1 tablet by mout h three times daily as needed for muscle spasm/pain CYCLOBENZAP RINE HCL 10 MG ORAL TABLET 573849 CYCLOBENZAPRINE HCL Inactive CONCEPT DHA 53.5-38-1 MG ORAL CAPSULE one tab PO daily CONCEPT DHA 53.5-38-1 MG ORAL CAPSULE NJDIYM-SWXRQ-ZJAK-FA-O BILLIE 3 Inactive FLAGYL 500 MG ORAL TABLET 1 tablet PO BID for 7 days 2 FLAGYL 500 MG ORAL TABLET 511906 METRONIDAZOLE Inactive TYLENOL PM EXTRA STRENGTH 500-25 MG ORAL TABLET PRN 12/31 TYLENOL PM EXTRA STRENGTH 500-25 MG ORAL TABLET 1582786 DIPHEN HYDRAMINE-APAP (SLEEP) Inactive FLAGYL 250 MG ORAL TABLET One tablet three times a day FLAGYL 250 MG ORAL TABLET 646146 METRONIDAZOLE Inactive Immunizations Vaccine Administration Date Value [...] 11 .0-15.0 platelet count 226 THOUSAND/UL 10*3/mm3 541-142 0018/05/11 mean platelet volume 10.3 fL 7.5-12.5 Lab [...] N Encounters Code Encounter Date Provider Facility CPT-70027 Level 3 Est. Patient 17:31:05 HIP HOP ARTIST Cintia sommer [facility] Procedures Code Procedure Name Date Entry Date Standard Desc ription CPT-34649 Visit 16:24:31 CDT CPT-96933 Sono OB comp > 14 weeks - XRAY USE ONLY 12:01:14 CDT CPT-31721 Visit 15:58:08 CDT CPT-87577 Visit 12:16:56 CDT CPT-01732I Sono OB comp <14 weeks (Pat Only) - X RAY USE ONLY 12:09:02 CDT CPT-30128 Spec Collection and Handling Fee 10:11:50 C DT CPT-44656 Visit 10:11:49 CDT CPT-J1050 Depo Provera 150 mg (Medroxyprogesterone) 08/30 16:06:30 HIP HOP ARTIST CPT-47918 Abx/Therapy Injection 16:06:30 HIP HOP ARTIST CPT-J1050 Depo Provera 150 mg (Medroxyprogesterone) 08/30 15:39:17 HIP HOP ARTIST CPT-75589 Visit 15:01:38 CDT CPT-47290 Sono OB comp > 14 weeks 16:05:04 CDT 03/18 CPT-96294 Spec Collection and Handling Fee 10:45:40 C DT CPT-30922 Visit 10:45:40 CDT
--- OUTSIDE RECORDS SUMMARY | 2020-01-05 00:02 | XMS REPORT | Clinical Summary ---
Author Author Admin, Giuliana Flores Organization [facility] Address Unknown Phone Unavailable Allergies, Adverse [...] use disorder NEED FOR PROPHYLACTIC VACCINATION WITH YYGROVQ-TFUVA-O UBELLA (MMR) VACCINE V06.4 Resolved Cinita Pagan APRN Need for prophylactic vaccination with ulneepj-ycxxn-rgzafxr [MMR] vaccine Contraceptive management V25.9 Resolved Taiwo [...] gestation of V28.9 Inactive 2017 Nayeli Duke ELECTRICAL WORKER Encounter for unspecified scre ening of mother Abnormal biochemical finding on screening 796.5 20 09/03/10 Active Estela Clifton TECHNOLOGY RECRUITER Abnormal finding on antenata l screening Sinusitis, acute frontal 461.1 Active Rosalina Se berg ELECTRICAL WORKER Acute frontal sinusitis GDM, diet controlled 648.80 Active Nayeli Duke ELECTRICAL WORKER Abnormal glucose tolerance complicating , childbirth, or the puerperium, unspecified as to episode of care or not applicable 30 weeks gestation of V28.9 Inactive 2017 Nayeli Duke ELECTRICAL WORKER Encounter for unspecified scre ening of [...] diseases care, delayed ICD-V23.7 Inactive Kristin Pagan ELECTRICAL WORKER NEED FOR PROPHYLACTIC VACCINATION WITH VIVVJBI-GWJVE-G UBELLA (MMR) VACCINE ICD-V06.4 Inactive Cintia Pagan ELECTRICAL WORKER Contraceptive management ICD-V25.9 Inactive Dionne Stewart MD follow-up, routine ICD-V24.2 Inacti ve Dionne Stewart MD Vaginal discharge ICD-623.5 Inactive Dionne spencer MD 29 weeks gestation of ICD-V28.9 Inac catalina Duke ELECTRICAL WORKER Medication List Medication Instructions Start Date Stop Date Generic Name NDC Status Provider Patient Instruction PROMETHAZINE HCL 12.5 MG ORAL TABLET 1 tablet by mouth every 4 hours as needed for nausea/vomiting PROMETHAZINE HCL 99526123018 Active Estela Clifton LPN Active DIFLUCAN 150 MG ORAL TABLET 1 tablet by mouth daily 20 10/07/30 FLUCONAZOLE 40441442562 No Longer Active Megan Wise Active ACYCLOVIR 400 MG ORAL TABLET One tab PO BID until delivery 06/23 ACYCLOVIR 08836965731 Active Dionne Stewart MD Active SKLICE 0.5 % EXTERNAL LOTION Apply 4oz to dry hair and rinse of after 10 minutes IVERMECTIN 75138829485 No Longer Active Megan lowe Active TRUE METRIX BLOOD GLUCOSE TEST IN VITRO STRIP Check bl ood sugars four times a day as directed for gestational DM; O24.420 GLUC OSE BLOOD 53082111285 Active Nayeli Duke APRN Active TRUE METRIX GO GLUCOSE METER W/DEVICE KIT Check blood sugars as directed BLOOD GLUCOSE MONITORING SUPPL 52432523747 Active Nayeli Duke APRN Active LANCETS Test blood sugars as directed for gestational DM O24. 420 LANCETS 09431325599 Active Nayeli Duke APRN Activ e AUGMENTIN 875-125 MG ORAL TABLET 1 po BID x 10 days 09/06/11 AMOXICILLIN-POT CLAVULANATE 86900398211 No Longer Active Rosalina Bland ELECTRICAL WORKER Active FERROUS SULFATE 325 (65 FE) MG ORAL TABLET 1 tablet daily 5 FERROUS SULFATE 56882216907 Active Estela Clifton LPN Active LORATADINE 10 MG ORAL TABLET 1 tablet by mouth daily LORATADINE 21647942841 Active Dionne Stewart MD Active TYLENOL PM EXTRA STRENGTH 500-25 MG ORAL TABLET PRN 12/31 DIPHENHYDRAMINE-APAP (SLEEP) 78175274942 No Longer Active Dionne Stewart MD Active CONCEPT DHA 53.5-38-1 MG ORAL CAPSULE one tab PO daily VFGHJI-NRTPT-JWHK-FA-OMEGA 3 64351332613 Active Dionne Stewart MD Active FLAGYL 500 MG ORAL TABLET 1 tablet PO BID for 7 days 2 METRONIDAZOLE 39216849286 No Longer Active Dionne Stewart MD Active EQL FORMULA 28-0.8 MG ORAL TABLET 1 tablet daily 1 VIT-FE FUMARATE-FA 64096483817 No Longer Active Dionne Stewart MD A ctive CONCEPT DHA 53.5-38-1 MG ORAL CAPSULE one tab PO daily HTDHRB-QYHDB-CZMX-FA-OMEGA 3 15853528140 No Longer Active Dionne Stewart MD Active CYCLOBENZAPRINE HCL 10 MG ORAL TABLET 1 tablet by mout h three times daily as needed for muscle spasm/pain CYCLOBENZAPRINE HCL 29339465639 No Longer Active Dionne Stewart MD Active TRI-SPRINTEC 0.18/0.215/0.25 MG-35 MCG ORAL TABLET 1 po qd a s directed NORGESTIM-ETH ESTRAD TRIPHASIC 82753391250 N o Longer Active Dionne Stewart MD Active FLAGYL 250 MG ORAL TABLET One tablet three times a day METRONIDAZOLE 04693228257 No Longer Active Cintia Pagan APRN Active CVS 28-0.8 MG ORAL TABLET 04/10 VIT-FE FUMARATE-FA 73954801700 No Longer Active Dionne Stewart MD Active CVS 28-0.8 MG ORAL TABLET 04/10 CVS 28-0.8 MG ORAL TABLET VIT-FE FUMARATE-FA Inactive TRI-SPRINTEC 0.18/0.215/0.25 MG-35 MCG ORAL TABLET 1 po qd a s directed TRI-SPRINTEC 0.18/0.215/0.25 MG-35 MCG ORAL TABL ET 796498 NORGESTIM-ETH ESTRAD TRIPHASIC Inactive CYCLOBENZAPRINE HCL 10 MG ORAL TABLET 1 tablet by mout h three times daily as needed for muscle spasm/pain CYCLOBENZAP RINE HCL 10 MG ORAL TABLET 216398 CYCLOBENZAPRINE HCL Inactive CONCEPT DHA 53.5-38-1 MG ORAL CAPSULE one tab PO daily CONCEPT DHA 53.5-38-1 MG ORAL CAPSULE ICQOJN-VDHAJ-IMZF-FA-O BILLIE 3 Inactive FLAGYL 500 MG ORAL TABLET 1 tablet PO BID for 7 days 2 FLAGYL 500 MG ORAL TABLET 464113 METRONIDAZOLE Inactive TYLENOL PM EXTRA STRENGTH 500-25 MG ORAL TABLET PRN 12/31 TYLENOL PM EXTRA STRENGTH 500-25 MG ORAL TABLET 8346903 DIPHEN HYDRAMINE-APAP (SLEEP) Inactive SKLICE 0.5 % EXTERNAL LOTION Apply 4oz to dry hair and rinse of after 10 minutes SKLICE 0.5 % EXTERNAL LOTION IVERMEC TIN Inactive DIFLUCAN 150 MG ORAL TABLET 1 tablet by mouth daily 10/07/30 DIFLUCAN 150 MG ORAL TABLET 885889 FLUCONAZOLE Inactive FLAGYL 250 MG ORAL TABLET One tablet three times a day FLAGYL 250 MG ORAL TABLET 577777 METRONIDAZOLE Inactive AUGMENTIN 875-125 MG ORAL TABLET 1 po BID x 10 days 09/06/11 AUGMENTIN 875-125 MG ORAL TABLET 585157 AMOXICILLIN-POT CLAVULANATE Inactive Immunizations Vaccine Administration Date [...] 11 .0-15.0 platelet count 226 THOUSAND/UL 10*3/mm3 489-034 9390/05/11 mean platelet volume 10.3 fL 7.5-12.5 Blood [...] SCREEN, RBCW/REFL I , [place] [address] - Blood bank antibody screen, serum NO ANTIBODIES DETECTED Lab Report: CBC, [id number]--64md Gluc cari-1spec - Hematology leukocyte count, blood [...] 201 10^3/MM^3 10*3/mm3 142-424 Lab Report: Chlamydia/GC APTIMA/61758, H EPATITIS B S AG W/, HIV-1/2 Agn/ ... - Chemistry hepatitis B surface antigen NON-REACTIVE NON-RE ACTIVE rapid plasma reagin antibody titer NON-REACTIVE NON-REACTIVE Lab Report: Chlamydia/GC APTIMA/60170, H EPATITIS B S AG W/, HIV-1/2 Agn/ ... - Lab chlamydia DNA probe NOT DETECTED NOT DETECTED Lab Report: Chlamydia/GC APTIMA/76026, H EPATITIS B S AG W/, HIV-1/2 [...] N Encounters Code Encounter Date Provider Facility CPT-84570 Level 4 Est. Patient 15:39:57 CDT Nayeli herrera [facility] CPT-93304 Level 3 Est. Patient 17:26:51 CDT Rosalina berg [facility] CPT-69856 Level 3 Est. Patient 17:31:05 SUPERVISOR ELECTRONIC TESTING Cintia sommer [facility] Procedures Code Procedure Name Date Entry Date Standard Desc ription CPT-32457 Visit 10:15:43 SUPERVISOR ELECTRONIC TESTING CPT-75809 Visit 13:02:58 SUPERVISOR ELECTRONIC TESTING CPT-63717 Visit 12:11:18 SUPERVISOR ELECTRONIC TESTING CPT-67339 Visit 10:38:39 CDT CPT-77023 Visit 08:28:55 CDT CPT-35092 Addl Vx - Ix admin via ID IM or jet injects without counseling by physician 18:18:11 CDT CPT-96983 Boostrix Intramuscular Suspension 5-2.5-18.5 201 04/01/05 18:18:11 CDT CPT-73912 First Vx - Ix admin via ID I M or jet injects without counseling by physician 18:18:11 CDT CPT-57487 Flulaval Intramuscular Injectable 18:18:11 CDT CPT-75858 Fluzone Thim Free 36mo and older 11:16:54 C DT CPT-16408 Tdap 7yrs or > 11:16:53 CDT CPT-86185 Visit 11:16:53 CDT CPT-26967 Visit 11:14:16 CDT CPT-34652 Visit 10:54:00 CDT CPT-14779 Visit 16:24:31 CDT CPT-27964 Sono OB comp > 14 weeks - XRAY USE ONLY 12:01:14 CDT CPT-20682 Visit 15:58:08 CDT CPT-02897 Visit 12:16:56 CDT CPT-66674H Sono OB comp <14 weeks ([place] Only) - X RAY USE ONLY 12:09:02 CDT CPT-59200 Spec Collection and Handling Fee 10:11:50 C DT CPT-31951 Visit 10:11:49 CDT CPT-J1050 Depo Provera 150 mg (Medroxyprogesterone) 08/30 16:06:30 SUPERVISOR ELECTRONIC TESTING CPT-46881 Abx/Therapy Injection 16:06:30 SUPERVISOR ELECTRONIC TESTING CPT-J1050 Depo Provera 150 mg (Medroxyprogesterone) 08/30 15:39:17 SUPERVISOR ELECTRONIC TESTING CPT-63504 Visit 15:01:38 CDT CPT-58218 Sono OB comp > 14 weeks 16:05:04 CDT 03/18 CPT-02424 Spec Collection and Handling Fee 10:45:40 C DT CPT-18695 Visit 10:45:40 CDT
--- OUTSIDE RECORDS SUMMARY | 2020-01-05 00:02 | XMS REPORT | Clinical Summary ---
Author Author Admin, Giuliana Flores Organization [facility] Address Unknown Phone Unavailable Allergies, Adverse [...] use disorder NEED FOR PROPHYLACTIC VACCINATION WITH LGQYBZZ-VLHWC-O UBELLA (MMR) VACCINE V06.4 Resolved Cintia Pagan APRN Need for prophylactic vaccination with hmnzitv-plrgy-sbwxgqw [MMR] vaccine Contraceptive management V25.9 Resolved Taiwo [...] screening 796.5 20 09/03/10 Active Estela Clifton ONCOLOGY PHARMACIST Abnormal finding on antenata l screening care, delayed ICD-V23.7 Inactive Kristin Pagan AIRPORT LOCATION MANAGER NEED FOR PROPHYLACTIC VACCINATION WITH DDMWQSR-TACNB-J UBELLA (MMR) VACCINE ICD-V06.4 Inactive Cintia Pagan AIRPORT LOCATION MANAGER Contraceptive management ICD-V25.9 Inactive Dionne Stewart MD follow-up, routine ICD-V24.2 Inacti ve Dionne Stewart MD Vaginal discharge ICD-623.5 Inactive Dionne spencer MD Medication List Medication Instructions Start Date Stop Date Generic Name NDC Status Provider Patient Instruction TYLENOL PM EXTRA STRENGTH 500-25 MG ORAL TABLET PRN 12/31 DIPHENHYDRAMINE-APAP (SLEEP) 55626030554 No Longer Active Dionne Stewart MD Active CONCEPT DHA 53.5-38-1 MG ORAL CAPSULE one tab PO daily AVBVEA-PPUDX-BMYN-FA-OMEGA 3 98161080671 Active Dionne Stewart MD Active FLAGYL 500 MG ORAL TABLET 1 tablet PO BID for 7 days 2 METRONIDAZOLE 74157234690 No Longer Active Dionne Stewart MD Active EQL FORMULA 28-0.8 MG ORAL TABLET 1 tablet daily 1 VIT-FE FUMARATE-FA 92591094013 No Longer Active Dionne Stewart MD A ctive CONCEPT DHA 53.5-38-1 MG ORAL CAPSULE one tab PO daily VFPZDI-BKROH-AXVO-FA-OMEGA 3 52604936946 No Longer Active Dionne Stewart MD Active CYCLOBENZAPRINE HCL 10 MG ORAL TABLET 1 tablet by mout h three times daily as needed for muscle spasm/pain CYCLOBENZAPRINE HCL 99323756308 No Longer Active Dionne Stewart MD Active TRI-SPRINTEC 0.18/0.215/0.25 MG-35 MCG ORAL TABLET 1 po qd a s directed NORGESTIM-ETH ESTRAD TRIPHASIC 87027152226 N o Longer Active Dionne Stewart MD Active FLAGYL 250 MG ORAL TABLET One tablet three times a day METRONIDAZOLE 09047875504 No Longer Active Cintia Pagan APRN Active CVS 28-0.8 MG ORAL TABLET 04/10 VIT-FE FUMARATE-FA 55303042619 No Longer Active Dionne Stewart MD Active CVS 28-0.8 MG ORAL TABLET 04/10 CVS 28-0.8 MG ORAL TABLET VIT-FE FUMARATE-FA Inactive TRI-SPRINTEC 0.18/0.215/0.25 MG-35 MCG ORAL TABLET 1 po qd a s directed TRI-SPRINTEC 0.18/0.215/0.25 MG-35 MCG ORAL TABL ET 727161 NORGESTIM-ETH ESTRAD TRIPHASIC Inactive CYCLOBENZAPRINE HCL 10 MG ORAL TABLET 1 tablet by mout h three times daily as needed for muscle spasm/pain CYCLOBENZAP RINE HCL 10 MG ORAL TABLET 492435 CYCLOBENZAPRINE HCL Inactive CONCEPT DHA 53.5-38-1 MG ORAL CAPSULE one tab PO daily CONCEPT DHA 53.5-38-1 MG ORAL CAPSULE XJPSZY-CDEAL-MMDG-FA-O BILLIE 3 Inactive FLAGYL 500 MG ORAL TABLET 1 tablet PO BID for 7 days 2 FLAGYL 500 MG ORAL TABLET 890078 METRONIDAZOLE Inactive TYLENOL PM EXTRA STRENGTH 500-25 MG ORAL TABLET PRN 12/31 TYLENOL PM EXTRA STRENGTH 500-25 MG ORAL TABLET 2622499 DIPHEN HYDRAMINE-APAP (SLEEP) Inactive FLAGYL 250 MG ORAL TABLET One tablet three times a day FLAGYL 250 MG ORAL TABLET 435621 METRONIDAZOLE Inactive Immunizations Vaccine Administration Date Value [...] 11 .0-15.0 platelet count 226 THOUSAND/UL 10*3/mm3 184-515 2012/05/11 mean platelet volume 10.3 fL 7.5-12.5 Lab [...] N Encounters Code Encounter Date Provider Facility CPT-73151 Level 3 Est. Patient 17:31:05 PHOTO FINISH PHOTOGRAPHER Cintia sommer [facility] Procedures Code Procedure Name Date Entry Date Standard Desc ription CPT-43855 Visit 16:24:31 CDT CPT-53163 Sono OB comp > 14 weeks - XRAY USE ONLY 12:01:14 CDT CPT-34620 Visit 15:58:08 CDT CPT-30338 Visit 12:16:56 CDT CPT-79878Y Sono OB comp <14 weeks (Pat Only) - X RAY USE ONLY 12:09:02 CDT CPT-30096 Spec Collection and Handling Fee 10:11:50 C DT CPT-56408 Visit 10:11:49 CDT CPT-J1050 Depo Provera 150 mg (Medroxyprogesterone) 08/30 16:06:30 PHOTO FINISH PHOTOGRAPHER CPT-83413 Abx/Therapy Injection 16:06:30 PHOTO FINISH PHOTOGRAPHER CPT-J1050 Depo Provera 150 mg (Medroxyprogesterone) 08/30 15:39:17 PHOTO FINISH PHOTOGRAPHER CPT-62366 Visit 15:01:38 CDT CPT-81331 Sono OB comp > 14 weeks 16:05:04 CDT 03/18 CPT-02720 Spec Collection and Handling Fee 10:45:40 C DT CPT-68932 Visit 10:45:40 CDT
--- OUTSIDE RECORDS SUMMARY | 2020-01-05 00:02 | XMS REPORT | Clinical Summary ---
[...] use disorder NEED FOR PROPHYLACTIC VACCINATION WITH ZTQWJNS-LTRAL-L UBELLA (MMR) VACCINE V06.4 Resolved Cintia Pagan APRN Need for prophylactic vaccination with euwwtai-ixxfa-tqyzcbl [MMR] vaccine Contraceptive management V25.9 Resolved Taiwo [...] screening 796.5 20 09/03/10 Active Estela Clifton BANKRUPTCY ASSISTANT Abnormal finding on antenata l screening care, delayed ICD-V23.7 Inactive Kristin Pagan WORM FARM LABORER NEED FOR PROPHYLACTIC VACCINATION WITH IEYSBQI-FCZDX-O UBELLA (MMR) VACCINE ICD-V06.4 Inactive Cintia Pagan WORM FARM LABORER Contraceptive management ICD-V25.9 Inactive Dionne Stewart MD follow-up, routine ICD-V24.2 Inacti ve Dionne Stewart MD Vaginal discharge ICD-623.5 Inactive Dionne spencer MD Medication List Medication Instructions Start Date Stop Date Generic Name NDC Status Provider Patient Instruction TYLENOL PM EXTRA STRENGTH 500-25 MG ORAL TABLET PRN 12/31 DIPHENHYDRAMINE-APAP (SLEEP) 17209121483 No Longer Active Dionne Stewart MD Active CONCEPT DHA 53.5-38-1 MG ORAL CAPSULE one tab PO daily QZOPID-PMUWO-YMFB-FA-OMEGA 3 92215254489 Active Dionne Stewart MD Active FLAGYL 500 MG ORAL TABLET 1 tablet PO BID for 7 days 2 METRONIDAZOLE 74244788748 No Longer Active Dionne Stewart MD Active EQL FORMULA 28-0.8 MG ORAL TABLET 1 tablet daily 1 VIT-FE FUMARATE-FA 46509814885 No Longer Active Dionne Stewart MD A ctive CONCEPT DHA 53.5-38-1 MG ORAL CAPSULE one tab PO daily KQVMLE-LMZWT-WSHM-FA-OMEGA 3 45749453163 No Longer Active Dionne Stewart MD Active CYCLOBENZAPRINE HCL 10 MG ORAL TABLET 1 tablet by mout h three times daily as needed for muscle spasm/pain CYCLOBENZAPRINE HCL 91581201924 No Longer Active Dionne Stewart MD Active TRI-SPRINTEC 0.18/0.215/0.25 MG-35 MCG ORAL TABLET 1 po qd a s directed NORGESTIM-ETH ESTRAD TRIPHASIC 11180203601 N o Longer Active Dionne Stewart MD Active FLAGYL 250 MG ORAL TABLET One tablet three times a day METRONIDAZOLE 62732889593 No Longer Active Cintia Pagan APRN Active [facility] 28-0.8 MG ORAL TABLET 04/10 VIT-FE FUMARATE-FA 90345457213 No Longer Active Dionne Stewart MD Active CVS 28-0.8 MG ORAL TABLET 04/10 CVS 28-0.8 MG ORAL TABLET VIT-FE FUMARATE-FA Inactive TRI-SPRINTEC 0.18/0.215/0.25 MG-35 MCG ORAL TABLET 1 po qd a s directed TRI-SPRINTEC 0.18/0.215/0.25 MG-35 MCG ORAL TABL ET 746196 NORGESTIM-ETH ESTRAD TRIPHASIC Inactive CYCLOBENZAPRINE HCL 10 MG ORAL TABLET 1 tablet by mout h three times daily as needed for muscle spasm/pain CYCLOBENZAP RINE HCL 10 MG ORAL TABLET 340199 CYCLOBENZAPRINE HCL Inactive CONCEPT DHA 53.5-38-1 MG ORAL CAPSULE one tab PO daily CONCEPT DHA 53.5-38-1 MG ORAL CAPSULE YVATOK-KTWTB-EURM-FA-O BILLIE 3 Inactive FLAGYL 500 MG ORAL TABLET 1 tablet PO BID for 7 days 2 FLAGYL 500 MG ORAL TABLET 597539 METRONIDAZOLE Inactive TYLENOL PM EXTRA STRENGTH 500-25 MG ORAL TABLET PRN 12/31 TYLENOL PM EXTRA STRENGTH 500-25 MG ORAL TABLET 7493008 DIPHEN HYDRAMINE-APAP (SLEEP) Inactive FLAGYL 250 MG ORAL TABLET One tablet three times a day FLAGYL 250 MG ORAL TABLET 912016 METRONIDAZOLE Inactive Immunizations Vaccine Administration Date Value [...] 11 .0-15.0 platelet count 226 THOUSAND/UL 10*3/mm3 952-835 8607/05/11 mean platelet volume 10.3 fL 7.5-12.5 Lab [...] N Encounters Code Encounter Date Provider Facility CPT-06935 Level 3 Est. Patient 17:31:05 RESERVOIR ENGINEERING MANAGER Cintia sommer [facility] Procedures Code Procedure Name Date Entry Date Standard Desc ription CPT-87660 Visit 16:24:31 CDT CPT-66007 Sono OB comp > 14 weeks - XRAY USE ONLY 12:01:14 CDT CPT-19883 Visit 15:58:08 CDT CPT-71471 Visit 12:16:56 CDT CPT-08546U Sono OB comp <14 weeks ([place] Only) - X RAY USE ONLY 12:09:02 CDT CPT-11201 Spec Collection and Handling Fee 10:11:50 C DT CPT-67062 Visit 10:11:49 CDT CPT-J1050 Depo Provera 150 mg (Medroxyprogesterone) 08/30 16:06:30 RESERVOIR ENGINEERING MANAGER CPT-20933 Abx/Therapy Injection 16:06:30 RESERVOIR ENGINEERING MANAGER CPT-J1050 Depo Provera 150 mg (Medroxyprogesterone) 08/30 15:39:17 RESERVOIR ENGINEERING MANAGER CPT-19409 Visit 15:01:38 CDT CPT-98919 Sono OB comp > 14 weeks 16:05:04 CDT 03/18 CPT-76049 Spec Collection and Handling Fee 10:45:40 C DT CPT-97527 Visit 10:45:40 CDT
--- OUTSIDE RECORDS SUMMARY | 2020-01-05 00:03 | XMS REPORT | Clinical Summary ---
Author Author Admin, Giuliana Flores Organization [facility] Address Unknown Phone Unavailable Allergies, Adverse Reactions, Alerts Allergy Name Reaction Description Start Date Severity Status Pr ovider No Known Allergies Megan Wise Conditions or Problems Problem Name Problem Code Onset Date Status Entry Date Provider Comment Standard Description Annotate Supervision of other normal V22.1 Resolved Cintia Pagan APRN Supervision of other normal Supervision of other normal V22.1 Active Dionne Stewart MD Supervision of other normal care, delayed V23.7 Resolved Cintia flores APRN Supervision of high-risk : insufficient care Drug abuse, hx of V15.89 Active Dionne Stewart MD Other specified personal history presenting hazards to health Tobacco abuse, gestational 305.1 Active Nilda Stewart MD Tobacco use disorder NEED FOR PROPHYLACTIC VACCINATION WITH AHTQJZK-QVPKB-H UBELLA (MMR) VACCINE V06.4 Resolved Cintia Pagan APRN Need for prophylactic vaccination with hnfetzy-ojual-clngfji [MMR] vaccine Contraceptive management V25.9 Resolved Taiwo [...] of mother 18 weeks gestation of V28.9 Active 2017 Dionne Stewart MD Encounter for unspecified scre ening of mother Abnormal biochemical finding on screening 796.5 20 09/03/10 Active Estela Clifton LPN Abnormal finding on antenata l screening care, delayed ICD-V23.7 Inactive Kristin Diazkum RUNNER ON NEED FOR PROPHYLACTIC VACCINATION WITH NDPVRHE-JOCND-H UBELLA (MMR) VACCINE ICD-V06.4 Inactive Cintia Yokum RUNNER ON Contraceptive management ICD-V25.9 Inactive Dionne Stewart MD follow-up, routine ICD-V24.2 Inacti ve Dionne Stewart MD Vaginal discharge ICD-623.5 Inactive Dionne spencer MD Medication List Medication Instructions Start Date Stop Date Generic Name NDC Status Provider Patient Instruction CONCEPT DHA 53.5-38-1 MG ORAL CAPSULE one tab PO daily MYOBEH-EFPXK-APNR-FA-OMEGA 3 12133881876 Active Dionne Stewart MD Active FLAGYL 500 MG ORAL TABLET 1 tablet PO BID for 7 days 2 METRONIDAZOLE 93667597287 No Longer Active Dionne Stewart MD Active TYLENOL PM EXTRA STRENGTH 500-25 MG ORAL TABLET PRN 12/31 DIPHENHYDRAMINE-APAP (SLEEP) 17309092980 Active Dionne Stewart MD Active EQL FORMULA 28-0.8 MG ORAL TABLET 1 tablet daily 1 VIT-FE FUMARATE-FA 40881698161 No Longer Active Dionne Stewart MD A ctive CONCEPT DHA 53.5-38-1 MG ORAL CAPSULE one tab PO daily KWGAJJ-TAOBW-USCH-FA-OMEGA 3 26333369564 No Longer Active Dionne Stewart MD Active CYCLOBENZAPRINE HCL 10 MG ORAL TABLET 1 tablet by mout h three times daily as needed for muscle spasm/pain CYCLOBENZAPRINE HCL 67470235011 No Longer Active Dionne Stewart MD Active TRI-SPRINTEC 0.18/0.215/0.25 MG-35 MCG ORAL TABLET 1 po qd a s directed NORGESTIM-ETH ESTRAD TRIPHASIC 53053374290 N o Longer Active Dionne Stewart MD Active FLAGYL 250 MG ORAL TABLET One tablet three times a day METRONIDAZOLE 77028945546 No Longer Active Cintia Pagan APRN Active [facility] 28-0.8 MG ORAL TABLET 04/10 VIT-FE FUMARATE-FA 27193913548 No Longer Active Dionne Stewart MD Active CVS 28-0.8 MG ORAL TABLET 04/10 CVS 28-0.8 MG ORAL TABLET VIT-FE FUMARATE-FA Inactive TRI-SPRINTEC 0.18/0.215/0.25 MG-35 MCG ORAL TABLET 1 po qd a s directed TRI-SPRINTEC 0.18/0.215/0.25 MG-35 MCG ORAL TABL ET 377573 NORGESTIM-ETH ESTRAD TRIPHASIC Inactive CYCLOBENZAPRINE HCL 10 MG ORAL TABLET 1 tablet by mout h three times daily as needed for muscle spasm/pain CYCLOBENZAP RINE HCL 10 MG ORAL TABLET 798148 CYCLOBENZAPRINE HCL Inactive CONCEPT DHA 53.5-38-1 MG ORAL CAPSULE one tab PO daily CONCEPT DHA 53.5-38-1 MG ORAL CAPSULE XNHQOP-FVCGI-DNFG-FA-O BILLIE 3 Inactive FLAGYL 500 MG ORAL TABLET 1 tablet PO BID for 7 days 2 FLAGYL 500 MG ORAL TABLET 644326 METRONIDAZOLE Inactive FLAGYL 250 MG ORAL TABLET One tablet three times a day FLAGYL 250 MG ORAL TABLET 926119 METRONIDAZOLE Inactive Immunizations Vaccine Administration Date Value Standard Koko cription hepatitis B vaccine series yes hepat itis B vaccine, unspecified formulation hepatitis B vaccine series no hepat itis B vaccine, unspecified formulation Vital Signs Date Name Value Unit Range Description blood pressure, diastolic 63 mm[Hg] BP miramontes [...] RBCW/REFL I, CBC (INCL ... - Hematology hemoglobin, blood 12.3 g/dL 11.7-15.5 hematocrit, blood 36.8 % 35.0-45.0 mean corpuscular volume, RBC 93.6 fL 80.0-10 0.0 mean corpuscular hemoglobin, RBC 31.3 pg 27. 0-33.0 mean corpuscular hemoglobin concentration, RBC 33.4 G/DL % 32.0-36.0 red blood cell distribution width 12.3 % 11 .0-15.0 platelet count 226 THOUSAND/UL 10*3/mm3 537-344 2396/05/11 mean platelet volume 10.3 fL 7.5-12.5 Blood type O erythrocyte (RBC) count 3.93 [...] N Encounters Code Encounter Date Provider Facility CPT-12456 Level 3 Est. Patient 17:31:05 WOMEN'S GARMENT FITTER Cintia sommer [facility] Procedures Code Procedure Name Date Entry Date Standard Desc ription CPT-82143 Visit 15:58:08 CDT CPT-37692 Visit 12:16:56 CDT CPT-93052O Sono OB comp <14 weeks ([place] Only) - X RAY USE ONLY 12:09:02 CDT CPT-50113 Spec Collection and Handling Fee 10:11:50 C DT CPT-86751 Visit 10:11:49 CDT CPT-J1050 Depo Provera 150 mg (Medroxyprogesterone) 08/30 16:06:30 WOMEN'S GARMENT FITTER CPT-30178 Abx/Therapy Injection 16:06:30 WOMEN'S GARMENT FITTER CPT-J1050 Depo Provera 150 mg (Medroxyprogesterone) 08/30 15:39:17 WOMEN'S GARMENT FITTER CPT-46857 Visit 15:01:38 CDT CPT-86815 Sono OB comp > 14 weeks 16:05:04 CDT 03/18 CPT-03225 Spec Collection and Handling Fee 10:45:40 C DT CPT-22976 Visit 10:45:40 CDT
--- OUTSIDE RECORDS SUMMARY | 2020-01-05 00:03 | XMS REPORT | Clinical Summary ---
Author Author Admin, Giuliana Flores Organization [facility] Address Unknown Phone Unavailable Allergies, Adverse [...] use disorder NEED FOR PROPHYLACTIC VACCINATION WITH NOJJXZQ-QAGCQ-Y UBELLA (MMR) VACCINE V06.4 Resolved Cintia Pagan APRN Need for prophylactic vaccination with sbjmrdl-awtlk-omnjpwt [MMR] vaccine Contraceptive management V25.9 Resolved Taiwo [...] screening 796.5 20 09/03/10 Active Estela Clifton AIR CARRIER MAINTENANCE INSPECTOR Abnormal finding on antenata l screening care, delayed ICD-V23.7 Inactive Kristin Pagan SENIOR SYSTEMS SOFTWARE ENGINEER NEED FOR PROPHYLACTIC VACCINATION WITH AVKVTSG-ULSZS-V UBELLA (MMR) VACCINE ICD-V06.4 Inactive Cintia Pagan SENIOR SYSTEMS SOFTWARE ENGINEER Contraceptive management ICD-V25.9 Inactive Dionne Stewart MD follow-up, routine ICD-V24.2 Inacti ve Dionne Stewart MD Vaginal discharge ICD-623.5 Inactive Dionne spencer MD Medication List Medication Instructions Start Date Stop Date Generic Name NDC Status Provider Patient Instruction TYLENOL PM EXTRA STRENGTH 500-25 MG ORAL TABLET PRN 12/31 DIPHENHYDRAMINE-APAP (SLEEP) 04136746786 No Longer Active Dionne Stewart MD Active CONCEPT DHA 53.5-38-1 MG ORAL CAPSULE one tab PO daily CGKBSC-XVSGI-CMFO-FA-OMEGA 3 08819602402 Active Dionne Stewart MD Active FLAGYL 500 MG ORAL TABLET 1 tablet PO BID for 7 days 2 METRONIDAZOLE 40252702841 No Longer Active Doinne Stewart MD Active EQL FORMULA 28-0.8 MG ORAL TABLET 1 tablet daily 1 VIT-FE FUMARATE-FA 28951318529 No Longer Active Dionne Stewart MD A ctive CONCEPT DHA 53.5-38-1 MG ORAL CAPSULE one tab PO daily YOOYMJ-MLZJE-ODOM-FA-OMEGA 3 14721370803 No Longer Active Dionne Stewart MD Active CYCLOBENZAPRINE HCL 10 MG ORAL TABLET 1 tablet by mout h three times daily as needed for muscle spasm/pain CYCLOBENZAPRINE HCL 39475178409 No Longer Active Dionne Stewart MD Active TRI-SPRINTEC 0.18/0.215/0.25 MG-35 MCG ORAL TABLET 1 po qd a s directed NORGESTIM-ETH ESTRAD TRIPHASIC 51230326076 N o Longer Active Dionne Stewart MD Active FLAGYL 250 MG ORAL TABLET One tablet three times a day METRONIDAZOLE 68572060530 No Longer Active Cintia Pagan APRN Active [facility] 28-0.8 MG ORAL TABLET 04/10 VIT-FE FUMARATE-FA 70117999431 No Longer Active Dionne Stewart MD Active CVS 28-0.8 MG ORAL TABLET 04/10 CVS 28-0.8 MG ORAL TABLET VIT-FE FUMARATE-FA Inactive TRI-SPRINTEC 0.18/0.215/0.25 MG-35 MCG ORAL TABLET 1 po qd a s directed TRI-SPRINTEC 0.18/0.215/0.25 MG-35 MCG ORAL TABL ET 301286 NORGESTIM-ETH ESTRAD TRIPHASIC Inactive CYCLOBENZAPRINE HCL 10 MG ORAL TABLET 1 tablet by mout h three times daily as needed for muscle spasm/pain CYCLOBENZAP RINE HCL 10 MG ORAL TABLET 868404 CYCLOBENZAPRINE HCL Inactive CONCEPT DHA 53.5-38-1 MG ORAL CAPSULE one tab PO daily CONCEPT DHA 53.5-38-1 MG ORAL CAPSULE IGPYML-SXBVN-ORLL-FA-O BILLIE 3 Inactive FLAGYL 500 MG ORAL TABLET 1 tablet PO BID for 7 days 2 FLAGYL 500 MG ORAL TABLET 353128 METRONIDAZOLE Inactive TYLENOL PM EXTRA STRENGTH 500-25 MG ORAL TABLET PRN 12/31 TYLENOL PM EXTRA STRENGTH 500-25 MG ORAL TABLET 6777143 DIPHEN HYDRAMINE-APAP (SLEEP) Inactive FLAGYL 250 MG ORAL TABLET One tablet three times a day FLAGYL 250 MG ORAL TABLET 233786 METRONIDAZOLE Inactive Immunizations Vaccine Administration Date Value [...] 11 .0-15.0 platelet count 226 THOUSAND/UL 10*3/mm3 582-842 3305/05/11 mean platelet volume 10.3 fL 7.5-12.5 Lab [...] N Encounters Code Encounter Date Provider Facility CPT-11860 Level 3 Est. Patient 17:31:05 MOLD CHIPPER Cintia smomer [facility] Procedures Code Procedure Name Date Entry Date Standard Desc ription CPT-93093 Visit 16:24:31 CDT CPT-80996 Sono OB comp > 14 weeks - XRAY USE ONLY 12:01:14 CDT CPT-24212 Visit 15:58:08 CDT CPT-58042 Visit 12:16:56 CDT CPT-20163C Sono OB comp <14 weeks ([place] Only) - X RAY USE ONLY 12:09:02 CDT CPT-28352 Spec Collection and Handling Fee 10:11:50 C DT CPT-94396 Visit 10:11:49 CDT CPT-J1050 Depo Provera 150 mg (Medroxyprogesterone) 08/30 16:06:30 MOLD CHIPPER CPT-58562 Abx/Therapy Injection 16:06:30 MOLD CHIPPER CPT-J1050 Depo Provera 150 mg (Medroxyprogesterone) 08/30 15:39:17 MOLD CHIPPER CPT-41137 Visit 15:01:38 CDT CPT-40436 Sono OB comp > 14 weeks 16:05:04 CDT 03/18 CPT-29621 Spec Collection and Handling Fee 10:45:40 C DT CPT-89407 Visit 10:45:40 CDT
--- OUTSIDE RECORDS SUMMARY | 2020-01-05 00:03 | XMS REPORT | Clinical Summary ---
[...] use disorder NEED FOR PROPHYLACTIC VACCINATION WITH UHXSYXP-IFMUN-R UBELLA (MMR) VACCINE V06.4 Resolved Cintia Pagan APRN Need for prophylactic vaccination with xwulaqm-vbpfu-isiszxh [MMR] vaccine Contraceptive management V25.9 Resolved Taiwo [...] screening 796.5 20 09/03/10 Active Estela Clifton RIB KNITTER Abnormal finding on antenata l screening care, delayed ICD-V23.7 Inactive Kristin Pagan HISTORY TEACHER NEED FOR PROPHYLACTIC VACCINATION WITH MSFJDKK-NHQIJ-I UBELLA (MMR) VACCINE ICD-V06.4 Inactive Cintia Pagan HISTORY TEACHER Contraceptive management ICD-V25.9 Inactive Dionne Stewart MD follow-up, routine ICD-V24.2 Inacti ve Dionne Stewart MD Vaginal discharge ICD-623.5 Inactive Dionne spencer MD Medication List Medication Instructions Start Date Stop Date Generic Name NDC Status Provider Patient Instruction CONCEPT DHA 53.5-38-1 MG ORAL CAPSULE one tab PO daily MABCWE-QTAFV-OFUL-FA-OMEGA 3 74748716279 Active Dionne Stewart MD Active FLAGYL 500 MG ORAL TABLET 1 tablet PO BID for 7 days 2 METRONIDAZOLE 94278379188 No Longer Active Dionne Stewart MD Active TYLENOL PM EXTRA STRENGTH 500-25 MG ORAL TABLET PRN 12/31 DIPHENHYDRAMINE-APAP (SLEEP) 17402228293 Active Dionne Stewart MD Active EQL FORMULA 28-0.8 MG ORAL TABLET 1 tablet daily 1 VIT-FE FUMARATE-FA 62756781826 No Longer Active Dionne Stewart MD A ctive CONCEPT DHA 53.5-38-1 MG ORAL CAPSULE one tab PO daily JXSCTM-JHMTN-HJTO-FA-OMEGA 3 28055217351 No Longer Active Dionne Stewart MD Active CYCLOBENZAPRINE HCL 10 MG ORAL TABLET 1 tablet by mout h three times daily as needed for muscle spasm/pain CYCLOBENZAPRINE HCL 95518828631 No Longer Active Dionne Stewart MD Active TRI-SPRINTEC 0.18/0.215/0.25 MG-35 MCG ORAL TABLET 1 po qd a s directed NORGESTIM-ETH ESTRAD TRIPHASIC 16411513352 N o Longer Active Dionne Stewart MD Active FLAGYL 250 MG ORAL TABLET One tablet three times a day METRONIDAZOLE 05315375943 No Longer Active Cintia Pagan APRN Active [facility]S 28-0.8 MG ORAL TABLET 04/10 VIT-FE FUMARATE-FA 69536088954 No Longer Active Dionne Stewart MD Active CVS 28-0.8 MG ORAL TABLET 04/10 CVS 28-0.8 MG ORAL TABLET VIT-FE FUMARATE-FA Inactive TRI-SPRINTEC 0.18/0.215/0.25 MG-35 MCG ORAL TABLET 1 po qd a s directed TRI-SPRINTEC 0.18/0.215/0.25 MG-35 MCG ORAL TABL ET 394817 NORGESTIM-ETH ESTRAD TRIPHASIC Inactive CYCLOBENZAPRINE HCL 10 MG ORAL TABLET 1 tablet by mout h three times daily as needed for muscle spasm/pain CYCLOBENZAP RINE HCL 10 MG ORAL TABLET 485257 CYCLOBENZAPRINE HCL Inactive CONCEPT DHA 53.5-38-1 MG ORAL CAPSULE one tab PO daily CONCEPT DHA 53.5-38-1 MG ORAL CAPSULE REJTLF-ACBHQ-IDTG-FA-O BILLIE 3 Inactive FLAGYL 500 MG ORAL TABLET 1 tablet PO BID for 7 days 2 FLAGYL 500 MG ORAL TABLET 717708 METRONIDAZOLE Inactive FLAGYL 250 MG ORAL TABLET One tablet three times a day FLAGYL 250 MG ORAL TABLET 070434 METRONIDAZOLE Inactive Immunizations Vaccine Administration Date Value [...] 11 .0-15.0 platelet count 226 THOUSAND/UL 10*3/mm3 146-739 7019/05/11 mean platelet volume 10.3 fL 7.5-12.5 Blood [...] N Encounters Code Encounter Date Provider Facility CPT-68042 Level 3 Est. Patient 17:31:05 PHARMACY TECHNOLOGY INSTRUCTOR Cintia Servando kemal [facility] Procedures Code Procedure Name Date Entry Date Standard Desc ription CPT-73947 Sono OB comp > 14 weeks - XRAY USE ONLY 12:01:14 CDT CPT-52035 Visit 15:58:08 CDT CPT-23362 Visit 12:16:56 CDT CPT-98533Z Sono OB comp <14 weeks ([place] Only) - X RAY USE ONLY 12:09:02 CDT CPT-70150 Spec Collection and Handling Fee 10:11:50 C DT CPT-15485 Visit 10:11:49 CDT CPT-J1050 Depo Provera 150 mg (Medroxyprogesterone) 08/30 16:06:30 PHARMACY TECHNOLOGY INSTRUCTOR CPT-19717 Abx/Therapy Injection 16:06:30 PHARMACY TECHNOLOGY INSTRUCTOR CPT-J1050 Depo Provera 150 mg (Medroxyprogesterone) 08/30 15:39:17 PHARMACY TECHNOLOGY INSTRUCTOR CPT-73528 Visit 15:01:38 CDT CPT-52540 Sono OB comp > 14 weeks 16:05:04 CDT 03/18 CPT-39025 Spec Collection and Handling Fee 10:45:40 C DT CPT-72545 Visit 10:45:40 CDT
--- OUTSIDE RECORDS SUMMARY | 2020-01-05 00:03 | XMS REPORT | Clinical Summary ---
Author Author Admin, Giuliana Flores Organization [facility] Address Unknown Phone Unavailable Allergies, Adverse [...] use disorder NEED FOR PROPHYLACTIC VACCINATION WITH RWFQFZJ-WWLEV-P UBELLA (MMR) VACCINE V06.4 Resolved Cintia Pagan APRN Need for prophylactic vaccination with ytrgwpm-kpeje-crrbdhe [MMR] vaccine Contraceptive management V25.9 Resolved Taiwo [...] screening care, delayed ICD-V23.7 Inactive Kristin Diazkum HEALTH ASSESSMENT AND TREATMENT TEACHER NEED FOR PROPHYLACTIC VACCINATION WITH EYHPVRP-LVXRB-A UBELLA (MMR) VACCINE ICD-V06.4 Inactive Cintia Yokum HEALTH ASSESSMENT AND TREATMENT TEACHER Contraceptive management ICD-V25.9 Inactive Dionne Stewart MD follow-up, routine ICD-V24.2 Inacti ve Dionne Stewart MD Vaginal discharge ICD-623.5 Inactive Dionne spencer MD Medication List Medication Instructions Start Date Stop Date Generic Name NDC Status Provider Patient Instruction CONCEPT DHA 53.5-38-1 MG ORAL CAPSULE one tab PO daily NOXLZO-MTDQU-YFDA-FA-OMEGA 3 57856875078 Active Dionne Stewart MD Active FLAGYL 500 MG ORAL TABLET 1 tablet PO BID for 7 days 2 METRONIDAZOLE 70865290537 No Longer Active Dionne Stewart MD Active TYLENOL PM EXTRA STRENGTH 500-25 MG ORAL TABLET PRN 12/31 DIPHENHYDRAMINE-APAP (SLEEP) 08840548272 Active Dionne Stewart MD Active EQL FORMULA 28-0.8 MG ORAL TABLET 1 tablet daily 1 VIT-FE FUMARATE-FA 16615952683 No Longer Active Dionne Stewart MD A ctive CONCEPT DHA 53.5-38-1 MG ORAL CAPSULE one tab PO daily LXVRKD-RJEUM-QNIU-FA-OMEGA 3 21989437573 No Longer Active Dionne Stewart MD Active CYCLOBENZAPRINE HCL 10 MG ORAL TABLET 1 tablet by mout h three times daily as needed for muscle spasm/pain CYCLOBENZAPRINE HCL 96835412676 No Longer Active Dionne Stewart MD Active TRI-SPRINTEC 0.18/0.215/0.25 MG-35 MCG ORAL TABLET 1 po qd a s directed NORGESTIM-ETH ESTRAD TRIPHASIC 65808979610 N o Longer Active Dionne Stewart MD Active FLAGYL 250 MG ORAL TABLET One tablet three times a day METRONIDAZOLE 13229720768 No Longer Active Cintia Pagan APRN Active CVS 28-0.8 MG ORAL TABLET 04/10 VIT-FE FUMARATE-FA 25812981954 No Longer Active Dionne Stewart MD Active CVS 28-0.8 MG ORAL TABLET 04/10 CVS 28-0.8 MG ORAL TABLET VIT-FE FUMARATE-FA Inactive TRI-SPRINTEC 0.18/0.215/0.25 MG-35 MCG ORAL TABLET 1 po qd a s directed TRI-SPRINTEC 0.18/0.215/0.25 MG-35 MCG ORAL TABL ET 881740 NORGESTIM-ETH ESTRAD TRIPHASIC Inactive CYCLOBENZAPRINE HCL 10 MG ORAL TABLET 1 tablet by mout h three times daily as needed for muscle spasm/pain CYCLOBENZAP RINE HCL 10 MG ORAL TABLET 375277 CYCLOBENZAPRINE HCL Inactive CONCEPT DHA 53.5-38-1 MG ORAL CAPSULE one tab PO daily CONCEPT DHA 53.5-38-1 MG ORAL CAPSULE MLBHLT-IXMLE-USKB-FA-O BILLIE 3 Inactive FLAGYL 500 MG ORAL TABLET 1 tablet PO BID for 7 days 2 FLAGYL 500 MG ORAL TABLET 289487 METRONIDAZOLE Inactive FLAGYL 250 MG ORAL TABLET One tablet three times a day FLAGYL 250 MG ORAL TABLET 751327 METRONIDAZOLE Inactive Immunizations Vaccine Administration Date Value [...] 11 .0-15.0 platelet count 226 THOUSAND/UL 10*3/mm3 830-020 0435/05/11 mean platelet volume 10.3 fL 7.5-12.5 Blood [...] N Encounters Code Encounter Date Provider Facility CPT-03874 Level 3 Est. Patient 17:31:05 SEALER DRY CELL Cintia sommer [facility] [place] [facility] Procedures Code Procedure Name Date Entry Date Standard Desc ription CPT-34721 Visit 15:58:08 CDT CPT-27323 Visit 12:16:56 CDT CPT-06106R Sono OB comp <14 weeks ([place] Only) - X RAY USE ONLY 12:09:02 CDT CPT-89406 Spec Collection and Handling Fee 10:11:50 C DT CPT-18464 Visit 10:11:49 CDT CPT-J1050 Depo Provera 150 mg (Medroxyprogesterone) 08/30 16:06:30 SEALER DRY CELL CPT-94730 Abx/Therapy Injection 16:06:30 SEALER DRY CELL CPT-J1050 Depo Provera 150 mg (Medroxyprogesterone) 08/30 15:39:17 SEALER DRY CELL CPT-62913 Visit 15:01:38 CDT CPT-11546 Sono OB comp > 14 weeks 16:05:04 CDT 03/18 CPT-69309 Spec Collection and Handling Fee 10:45:40 C DT CPT-38357 Visit 10:45:40 CDT
--- OUTSIDE RECORDS SUMMARY | 2020-01-05 00:03 | XMS REPORT | Clinical Summary ---
Author Author Admin, Giuliana Flores Organization [facility] Address Unknown Phone Unavailable Allergies, [...] use disorder NEED FOR PROPHYLACTIC VACCINATION WITH UJKZVRG-OMHWG-U UBELLA (MMR) VACCINE V06.4 Resolved Cintia Pagan APRN Need for prophylactic vaccination with ncdbhxv-ecemv-lduqayb [MMR] vaccine Contraceptive management V25.9 Resolved Taiwo [...] screening care, delayed ICD-V23.7 Inactive Kristin Diazkum PAPER CONSERVATOR NEED FOR PROPHYLACTIC VACCINATION WITH UAXVIPA-SELNO-P UBELLA (MMR) VACCINE ICD-V06.4 Inactive Cintia Yokum PAPER CONSERVATOR Contraceptive management ICD-V25.9 Inactive Dionne Stewart MD follow-up, routine ICD-V24.2 Inacti ve Dionne Stewart MD Vaginal discharge ICD-623.5 Inactive Dionne spencer MD Medication List Medication Instructions Start Date Stop Date Generic Name NDC Status Provider Patient Instruction CONCEPT DHA 53.5-38-1 MG ORAL CAPSULE one tab PO daily LCJWVC-VCTIO-ITLG-FA-OMEGA 3 77845137920 Active Dionne Stewart MD Active FLAGYL 500 MG ORAL TABLET 1 tablet PO BID for 7 days 2 METRONIDAZOLE 29256439727 No Longer Active Dionne Stewart MD Active TYLENOL PM EXTRA STRENGTH 500-25 MG ORAL TABLET PRN 12/31 DIPHENHYDRAMINE-APAP (SLEEP) 68033370497 Active Dionne Stewart MD Active EQL FORMULA 28-0.8 MG ORAL TABLET 1 tablet daily 1 VIT-FE FUMARATE-FA 24615222062 No Longer Active Dionne Stewart MD A ctive CONCEPT DHA 53.5-38-1 MG ORAL CAPSULE one tab PO daily QQAFBT-LCAGQ-BQZZ-FA-OMEGA 3 53577262131 No Longer Active Dionne Stewart MD Active CYCLOBENZAPRINE HCL 10 MG ORAL TABLET 1 tablet by mout h three times daily as needed for muscle spasm/pain CYCLOBENZAPRINE HCL 76595670424 No Longer Active Dionne Stewart MD Active TRI-SPRINTEC 0.18/0.215/0.25 MG-35 MCG ORAL TABLET 1 po qd a s directed NORGESTIM-ETH ESTRAD TRIPHASIC 49082623690 N o Longer Active Dionne Stewart MD Active FLAGYL 250 MG ORAL TABLET One tablet three times a day METRONIDAZOLE 48047318391 No Longer Active Cintia Pagan APRN Active [facility] 28-0.8 MG ORAL TABLET 04/10 VIT-FE FUMARATE-FA 08280624238 No Longer Active Dionne Stewart MD Active CVS 28-0.8 MG ORAL TABLET 04/10 CVS 28-0.8 MG ORAL TABLET VIT-FE FUMARATE-FA Inactive TRI-SPRINTEC 0.18/0.215/0.25 MG-35 MCG ORAL TABLET 1 po qd a s directed TRI-SPRINTEC 0.18/0.215/0.25 MG-35 MCG ORAL TABL ET 170760 NORGESTIM-ETH ESTRAD TRIPHASIC Inactive CYCLOBENZAPRINE HCL 10 MG ORAL TABLET 1 tablet by mout h three times daily as needed for muscle spasm/pain CYCLOBENZAP RINE HCL 10 MG ORAL TABLET 631417 CYCLOBENZAPRINE HCL Inactive CONCEPT DHA 53.5-38-1 MG ORAL CAPSULE one tab PO daily CONCEPT DHA 53.5-38-1 MG ORAL CAPSULE FRWSLQ-VBJDI-GPPF-FA-O BILLIE 3 Inactive FLAGYL 500 MG ORAL TABLET 1 tablet PO BID for 7 days 2 FLAGYL 500 MG ORAL TABLET 697916 METRONIDAZOLE Inactive FLAGYL 250 MG ORAL TABLET One tablet three times a day FLAGYL 250 MG ORAL TABLET 826490 METRONIDAZOLE Inactive Immunizations Vaccine Administration Date Value [...] 11 .0-15.0 platelet count 226 THOUSAND/UL 10*3/mm3 352-000 4580/05/11 mean platelet volume 10.3 fL 7.5-12.5 Blood [...] N Encounters Code Encounter Date Provider Facility CPT-96928 Level 3 Est. Patient 17:31:05 AIR TRAFFIC CONTROL OPERATOR Cintia sommer [facility] Procedures Code Procedure Name Date Entry Date Standard Desc ription CPT-81600 Visit 15:58:08 CDT CPT-12593 Visit 12:16:56 CDT CPT-48154N Sono OB comp <14 weeks ([place] Only) - X RAY USE ONLY 12:09:02 CDT CPT-30630 Spec Collection and Handling Fee 10:11:50 C DT CPT-50522 Visit 10:11:49 CDT CPT-J1050 Depo Provera 150 mg (Medroxyprogesterone) 08/30 16:06:30 AIR TRAFFIC CONTROL OPERATOR CPT-90390 Abx/Therapy Injection 16:06:30 AIR TRAFFIC CONTROL OPERATOR CPT-J1050 Depo Provera 150 mg (Medroxyprogesterone) 08/30 15:39:17 AIR TRAFFIC CONTROL OPERATOR CPT-41124 Visit 15:01:38 CDT CPT-64131 Sono OB comp > 14 weeks 16:05:04 CDT 03/18 CPT-54064 Spec Collection and Handling Fee 10:45:40 C DT CPT-73615 Visit 10:45:40 CDT
--- OUTSIDE RECORDS SUMMARY | 2020-01-05 00:03 | XMS REPORT | Clinical Summary ---
Author Author Admin, Giuliana Flores Organization [facility] Address Unknown Phone Unavailable Allergies, Adverse [...] use disorder NEED FOR PROPHYLACTIC VACCINATION WITH QQSTBXI-ZOOYI-G UBELLA (MMR) VACCINE V06.4 Resolved Cintia Pagan APRN Need for prophylactic vaccination with ndvhcld-btuyg-tzbcpwf [MMR] vaccine Contraceptive management V25.9 Resolved Taiwo [...] screening care, delayed ICD-V23.7 Inactive Kristin Diazkum ENGINEER CHIEF NEED FOR PROPHYLACTIC VACCINATION WITH CXLECPL-YUVML-E UBELLA (MMR) VACCINE ICD-V06.4 Inactive Cintia Yokum ENGINEER CHIEF Contraceptive management ICD-V25.9 Inactive Dionne Stewart MD follow-up, routine ICD-V24.2 Inacti ve Dionne Stewart MD Vaginal discharge ICD-623.5 Inactive Dionne spencer MD Medication List Medication Instructions Start Date Stop Date Generic Name NDC Status Provider Patient Instruction CONCEPT DHA 53.5-38-1 MG ORAL CAPSULE one tab PO daily BBRYUD-XQESF-EUCU-FA-OMEGA 3 22404574440 Active Dionne Stewart MD Active FLAGYL 500 MG ORAL TABLET 1 tablet PO BID for 7 days 2 METRONIDAZOLE 73412319687 No Longer Active Dionne Stewart MD Active TYLENOL PM EXTRA STRENGTH 500-25 MG ORAL TABLET PRN 12/31 DIPHENHYDRAMINE-APAP (SLEEP) 09821350346 Active Dionne Stewart MD Active EQL FORMULA 28-0.8 MG ORAL TABLET 1 tablet daily 1 VIT-FE FUMARATE-FA 84736920376 No Longer Active Dionne Stewart MD A ctive CONCEPT DHA 53.5-38-1 MG ORAL CAPSULE one tab PO daily MZNJTW-OSJWA-LQBQ-FA-OMEGA 3 64636095800 No Longer Active Dionne Stewart MD Active CYCLOBENZAPRINE HCL 10 MG ORAL TABLET 1 tablet by mout h three times daily as needed for muscle spasm/pain CYCLOBENZAPRINE HCL 92936419777 No Longer Active Dionne Stewart MD Active TRI-SPRINTEC 0.18/0.215/0.25 MG-35 MCG ORAL TABLET 1 po qd a s directed NORGESTIM-ETH ESTRAD TRIPHASIC 39514713878 N o Longer Active Dionne Stewart MD Active FLAGYL 250 MG ORAL TABLET One tablet three times a day METRONIDAZOLE 31356737129 No Longer Active Cintia Pagan APRN Active [facility] 28-0.8 MG ORAL TABLET 04/10 VIT-FE FUMARATE-FA 02798297847 No Longer Active Dionne Stewart MD Active CVS 28-0.8 MG ORAL TABLET 04/10 CVS 28-0.8 MG ORAL TABLET VIT-FE FUMARATE-FA Inactive TRI-SPRINTEC 0.18/0.215/0.25 MG-35 MCG ORAL TABLET 1 po qd a s directed TRI-SPRINTEC 0.18/0.215/0.25 MG-35 MCG ORAL TABL ET 406387 NORGESTIM-ETH ESTRAD TRIPHASIC Inactive CYCLOBENZAPRINE HCL 10 MG ORAL TABLET 1 tablet by mout h three times daily as needed for muscle spasm/pain CYCLOBENZAP RINE HCL 10 MG ORAL TABLET 170419 CYCLOBENZAPRINE HCL Inactive CONCEPT DHA 53.5-38-1 MG ORAL CAPSULE one tab PO daily CONCEPT DHA 53.5-38-1 MG ORAL CAPSULE SOYEHZ-PKFHY-MUST-FA-O BILLIE 3 Inactive FLAGYL 500 MG ORAL TABLET 1 tablet PO BID for 7 days 2 FLAGYL 500 MG ORAL TABLET 201730 METRONIDAZOLE Inactive FLAGYL 250 MG ORAL TABLET One tablet three times a day FLAGYL 250 MG ORAL TABLET 027545 METRONIDAZOLE Inactive Immunizations Vaccine Administration Date Value [...] 11 .0-15.0 platelet count 226 THOUSAND/UL 10*3/mm3 038-257 4584/05/11 mean platelet volume 10.3 fL 7.5-12.5 Blood [...] N Encounters Code Encounter Date Provider Facility CPT-52262 Level 3 Est. Patient 17:31:05 FISH HATCHERY ASSISTANT Cintia sommer [facility] Procedures Code Procedure Name Date Entry Date Standard Desc ription CPT-97050 Visit 15:58:08 CDT CPT-69772 Visit 12:16:56 CDT CPT-34032E Sono OB comp <14 weeks ([place] Only) - X RAY USE ONLY 12:09:02 CDT CPT-48760 Spec Collection and Handling Fee 10:11:50 C DT CPT-66006 Visit 10:11:49 CDT CPT-J1050 Depo Provera 150 mg (Medroxyprogesterone) 08/30 16:06:30 FISH HATCHERY ASSISTANT CPT-32768 Abx/Therapy Injection 16:06:30 FISH HATCHERY ASSISTANT CPT-J1050 Depo Provera 150 mg (Medroxyprogesterone) 08/30 15:39:17 FISH HATCHERY ASSISTANT CPT-73372 Visit 15:01:38 CDT CPT-40162 Sono OB comp > 14 weeks 16:05:04 CDT 03/18 CPT-12090 Spec Collection and Handling Fee 10:45:40 C DT CPT-91690 Visit 10:45:40 CDT
--- OUTSIDE RECORDS SUMMARY | 2020-01-05 00:04 | XMS REPORT | Clinical Summary ---
Author Author Admin, Giuliana Flores Organization [facility] Address Unknown Phone Unavailable Allergies, Adverse Reactions, Alerts Allergy Name Reaction Description Start Date Severity Status Pr ovider No Known Allergies Luana Chairez MA Conditions or Problems Problem Name Problem [...] use disorder NEED FOR PROPHYLACTIC VACCINATION WITH MNULNGO-LQHUV-C UBELLA (MMR) VACCINE V06.4 Resolved Cintia Pagan APRN Need for prophylactic vaccination with rnghdvu-cqdjq-mbkgfos [MMR] vaccine Contraceptive management V25.9 Resolved Taiwo [...] of mother 16 weeks gestation of V28.9 Active 2017 Dionne Stewart MD Encounter for unspecified scre ening of mother Abnormal biochemical finding on screening 796.5 20 09/03/10 Active Estela Clifton LPN Abnormal finding on antenata l screening care, delayed ICD-V23.7 Inactive Kristin Pagan TEMPLE MEAT CUTTER NEED FOR PROPHYLACTIC VACCINATION WITH XEWDFOC-WGFSM-K UBELLA (MMR) VACCINE ICD-V06.4 Inactive Cintia Yokum TEMPLE MEAT CUTTER Contraceptive management ICD-V25.9 Inactive Dionne Stewart MD follow-up, routine ICD-V24.2 Inacti ve Dionne Stewart MD Vaginal discharge ICD-623.5 Inactive Dionne spencer MD Medication List Medication Instructions Start Date Stop Date Generic Name NDC Status Provider Patient Instruction CONCEPT DHA 53.5-38-1 MG ORAL CAPSULE one tab PO daily LKGEWO-FEFHI-WKYI-FA-OMEGA 3 04920335495 Active Dionne Stewart MD Active FLAGYL 500 MG ORAL TABLET 1 tablet PO BID for 7 days 2 METRONIDAZOLE 14774410041 No Longer Active Dionne Stewart MD Active TYLENOL PM EXTRA STRENGTH 500-25 MG ORAL TABLET PRN 12/31 DIPHENHYDRAMINE-APAP (SLEEP) 54780927370 Active Dionne Stewart MD Active EQL FORMULA 28-0.8 MG ORAL TABLET 1 tablet daily 1 VIT-FE FUMARATE-FA 80415658961 No Longer Active Dionne Stewart MD A ctive CONCEPT DHA 53.5-38-1 MG ORAL CAPSULE one tab PO daily CKYAQM-JTRIR-FTDO-FA-OMEGA 3 82194821826 No Longer Active Dionne Stewart MD Active CYCLOBENZAPRINE HCL 10 MG ORAL TABLET 1 tablet by mout h three times daily as needed for muscle spasm/pain CYCLOBENZAPRINE HCL 92441758729 No Longer Active Dionne Stewart MD Active TRI-SPRINTEC 0.18/0.215/0.25 MG-35 MCG ORAL TABLET 1 po qd a s directed NORGESTIM-ETH ESTRAD TRIPHASIC 81017273713 N o Longer Active Dionne Stewart MD Active FLAGYL 250 MG ORAL TABLET One tablet three times a day METRONIDAZOLE 60518760959 No Longer Active Cintia Pagan APRN Active CVS 28-0.8 MG ORAL TABLET 04/10 VIT-FE FUMARATE-FA 19680056753 No Longer Active Dionne Stewart MD Active CVS 28-0.8 MG ORAL TABLET 04/10 CVS 28-0.8 MG ORAL TABLET VIT-FE FUMARATE-FA Inactive TRI-SPRINTEC 0.18/0.215/0.25 MG-35 MCG ORAL TABLET 1 po qd a s directed TRI-SPRINTEC 0.18/0.215/0.25 MG-35 MCG ORAL TABL ET 120243 NORGESTIM-ETH ESTRAD TRIPHASIC Inactive CYCLOBENZAPRINE HCL 10 MG ORAL TABLET 1 tablet by mout h three times daily as needed for muscle spasm/pain CYCLOBENZAP RINE HCL 10 MG ORAL TABLET 846555 CYCLOBENZAPRINE HCL Inactive CONCEPT DHA 53.5-38-1 MG ORAL CAPSULE one tab PO daily CONCEPT DHA 53.5-38-1 MG ORAL CAPSULE XISWIS-WLSVN-GGWL-FA-O BILLIE 3 Inactive FLAGYL 500 MG ORAL TABLET 1 tablet PO BID for 7 days 2 FLAGYL 500 MG ORAL TABLET 908244 METRONIDAZOLE Inactive FLAGYL 250 MG ORAL TABLET One tablet three times a day FLAGYL 250 MG ORAL TABLET 885898 METRONIDAZOLE Inactive Immunizations Vaccine Administration Date Value Standard Koko cription hepatitis B vaccine series yes hepat itis B vaccine, unspecified formulation hepatitis B vaccine series no hepat itis B vaccine, unspecified formulation Vital Signs Date Name Value Unit Range Description blood pressure, diastolic 55 mm[Hg] BP miramontes [...] 11 .0-15.0 platelet count 226 THOUSAND/UL 10*3/mm3 926-436 8507/05/11 mean platelet volume 10.3 fL 7.5-12.5 Lab [...] N Encounters Code Encounter Date Provider Facility CPT-53007 Level 3 Est. Patient 17:31:05 FRONT OFFICE MANAGER Cintia sommer [facility] Procedures Code Procedure Name Date Entry Date Standard Desc ription CPT-85184 Visit 12:16:56 CDT CPT-63159Y Sono OB comp <14 weeks ([place] Only) - X RAY USE ONLY 12:09:02 CDT CPT-54529 Spec Collection and Handling Fee 10:11:50 C DT CPT-00279 Visit 10:11:49 CDT CPT-J1050 Depo Provera 150 mg (Medroxyprogesterone) 08/30 16:06:30 FRONT OFFICE MANAGER CPT-54027 Abx/Therapy Injection 16:06:30 FRONT OFFICE MANAGER CPT-J1050 Depo Provera 150 mg (Medroxyprogesterone) 08/30 15:39:17 FRONT OFFICE MANAGER CPT-19019 Visit 15:01:38 CDT CPT-12592 Sono OB comp > 14 weeks 16:05:04 CDT 03/18 CPT-01412 Spec Collection and Handling Fee 10:45:40 C DT CPT-79479 Visit 10:45:40 CDT
--- OUTSIDE RECORDS SUMMARY | 2020-01-05 00:04 | XMS REPORT | Clinical Summary ---
Author Author Admin, Giuliana Flores Organization [facility] Address Unknown Phone Unavailable Allergies, Adverse Reactions, [...] use disorder NEED FOR PROPHYLACTIC VACCINATION WITH LXNKBLP-ZOUXS-W UBELLA (MMR) VACCINE V06.4 Resolved Cintia Pagan APRN Need for prophylactic vaccination with mtolhsy-vymkc-yduitxh [MMR] vaccine Contraceptive management V25.9 Resolved Taiwo [...] screening care, delayed ICD-V23.7 Inactive Kristin Pagan FINANCIAL INVESTIGATOR NEED FOR PROPHYLACTIC VACCINATION WITH OVXTTYR-FZTTT-B UBELLA (MMR) VACCINE ICD-V06.4 Inactive Cintia Yokum FINANCIAL INVESTIGATOR Contraceptive management ICD-V25.9 Inactive Dionne Stewart MD follow-up, routine ICD-V24.2 Inacti ve Dionne Stewart MD Vaginal discharge ICD-623.5 Inactive Dionne spencer MD Medication List Medication Instructions Start Date Stop Date Generic Name NDC Status Provider Patient Instruction CONCEPT DHA 53.5-38-1 MG ORAL CAPSULE one tab PO daily ILUJCZ-WMJGO-GRYJ-FA-OMEGA 3 84188267697 Active Dionne Stewart MD Active FLAGYL 500 MG ORAL TABLET 1 tablet PO BID for 7 days 2 METRONIDAZOLE 27390289928 No Longer Active Dionne Stewart MD Active TYLENOL PM EXTRA STRENGTH 500-25 MG ORAL TABLET PRN 12/31 DIPHENHYDRAMINE-APAP (SLEEP) 57812749431 Active Dionne Stewart MD Active EQL FORMULA 28-0.8 MG ORAL TABLET 1 tablet daily 1 VIT-FE FUMARATE-FA 26520164923 No Longer Active Dionne Stewart MD A ctive CONCEPT DHA 53.5-38-1 MG ORAL CAPSULE one tab PO daily YIWHFH-SQDBR-CGMN-FA-OMEGA 3 47546220264 No Longer Active Dionne Stewart MD Active CYCLOBENZAPRINE HCL 10 MG ORAL TABLET 1 tablet by mout h three times daily as needed for muscle spasm/pain CYCLOBENZAPRINE HCL 26049466537 No Longer Active Dionne Stewart MD Active TRI-SPRINTEC 0.18/0.215/0.25 MG-35 MCG ORAL TABLET 1 po qd a s directed NORGESTIM-ETH ESTRAD TRIPHASIC 87794039819 N o Longer Active Dionne Stewart MD Active FLAGYL 250 MG ORAL TABLET One tablet three times a day METRONIDAZOLE 84431183415 No Longer Active Cintia Pagan APRN Active CVS 28-0.8 MG ORAL TABLET 04/10 VIT-FE FUMARATE-FA 89918255091 No Longer Active Dionne Stewart MD Active CVS 28-0.8 MG ORAL TABLET 04/10 CVS 28-0.8 MG ORAL TABLET VIT-FE FUMARATE-FA Inactive TRI-SPRINTEC 0.18/0.215/0.25 MG-35 MCG ORAL TABLET 1 po qd a s directed TRI-SPRINTEC 0.18/0.215/0.25 MG-35 MCG ORAL TABL ET 713951 NORGESTIM-ETH ESTRAD TRIPHASIC Inactive CYCLOBENZAPRINE HCL 10 MG ORAL TABLET 1 tablet by mout h three times daily as needed for muscle spasm/pain CYCLOBENZAP RINE HCL 10 MG ORAL TABLET 994138 CYCLOBENZAPRINE HCL Inactive CONCEPT DHA 53.5-38-1 MG ORAL CAPSULE one tab PO daily CONCEPT DHA 53.5-38-1 MG ORAL CAPSULE HCUBWQ-IKZWR-NPBW-FA-O BILLIE 3 Inactive FLAGYL 500 MG ORAL TABLET 1 tablet PO BID for 7 days 2 FLAGYL 500 MG ORAL TABLET 338883 METRONIDAZOLE Inactive FLAGYL 250 MG ORAL TABLET One tablet three times a day FLAGYL 250 MG ORAL TABLET 533791 METRONIDAZOLE Inactive Immunizations Vaccine Administration Date Value [...] 11 .0-15.0 platelet count 226 THOUSAND/UL 10*3/mm3 340-219 3028/05/11 mean platelet volume 10.3 fL 7.5-12.5 Lab [...] N Encounters Code Encounter Date Provider Facility CPT-57992 Level 3 Est. Patient 17:31:05 HYDROELECTRIC PLANT MECHANICAL ENGINEER Cintia sommer [facility] Procedures Code Procedure Name Date Entry Date Standard Desc ription CPT-52301 Visit 12:16:56 CDT CPT-63037X Sono OB comp <14 weeks ([place] Only) - X RAY USE ONLY 12:09:02 CDT CPT-50896 Spec Collection and Handling Fee 10:11:50 C DT CPT-40733 Visit 10:11:49 CDT CPT-J1050 Depo Provera 150 mg (Medroxyprogesterone) 08/30 16:06:30 HYDROELECTRIC PLANT MECHANICAL ENGINEER CPT-99558 Abx/Therapy Injection 16:06:30 HYDROELECTRIC PLANT MECHANICAL ENGINEER CPT-J1050 Depo Provera 150 mg (Medroxyprogesterone) 08/30 15:39:17 HYDROELECTRIC PLANT MECHANICAL ENGINEER CPT-98130 Visit 15:01:38 CDT CPT-49903 Sono OB comp > 14 weeks 16:05:04 CDT 03/18 CPT-48809 Spec Collection and Handling Fee 10:45:40 C DT CPT-32160 Visit 10:45:40 CDT
--- OUTSIDE RECORDS SUMMARY | 2020-01-05 00:04 | XMS REPORT | Clinical Summary ---
Author Author Admin, Giuliana Flores Organization [facility] Address Unknown Phone Unavailable Allergies, Adverse Reactions, [...] use disorder NEED FOR PROPHYLACTIC VACCINATION WITH CRZSXMR-JSANE-F UBELLA (MMR) VACCINE V06.4 Resolved Cintia Pagan APRN Need for prophylactic vaccination with uolxxot-pkveb-hvlcayv [MMR] vaccine Contraceptive management V25.9 Resolved Taiwo [...] mother care, delayed ICD-V23.7 Inactive Kristin Pagan VICE PRESIDENT FOR PHILANTHROPY NEED FOR PROPHYLACTIC VACCINATION WITH WPVFGSF-ANRQV-W UBELLA (MMR) VACCINE ICD-V06.4 Inactive Cintia Alkemal VICE PRESIDENT FOR PHILANTHROPY Contraceptive management ICD-V25.9 Inactive Dionne Stewart MD follow-up, routine ICD-V24.2 Inacti ve Dionne Stewart MD Vaginal discharge ICD-623.5 Inactive Dionne spencer MD Medication List Medication Instructions Start Date Stop Date Generic Name NDC Status Provider Patient Instruction CONCEPT DHA 53.5-38-1 MG ORAL CAPSULE one tab PO daily KQOLXD-YEPWZ-WLFL-FA-OMEGA 3 90024569859 Active Dionne Stewart MD Active FLAGYL 500 MG ORAL TABLET 1 tablet PO BID for 7 days 2 METRONIDAZOLE 85941354500 No Longer Active Dionne Stewart MD Active TYLENOL PM EXTRA STRENGTH 500-25 MG ORAL TABLET PRN 12/31 DIPHENHYDRAMINE-APAP (SLEEP) 05883036701 Active Dionne Stewart MD Active EQL FORMULA 28-0.8 MG ORAL TABLET 1 tablet daily 1 VIT-FE FUMARATE-FA 19988492429 No Longer Active Dionne Stewart MD A ctive CONCEPT DHA 53.5-38-1 MG ORAL CAPSULE one tab PO daily ASJDFY-LCKDO-AIQX-FA-OMEGA 3 37684465038 No Longer Active Dionne Stewart MD Active CYCLOBENZAPRINE HCL 10 MG ORAL TABLET 1 tablet by mout h three times daily as needed for muscle spasm/pain CYCLOBENZAPRINE HCL 87502127021 No Longer Active Dionne Stewart MD Active TRI-SPRINTEC 0.18/0.215/0.25 MG-35 MCG ORAL TABLET 1 po qd a s directed NORGESTIM-ETH ESTRAD TRIPHASIC 42265987964 N o Longer Active Dionne Stewart MD Active FLAGYL 250 MG ORAL TABLET One tablet three times a day METRONIDAZOLE 93637985219 No Longer Active Cintia Pagan APRN Active CVS 28-0.8 MG ORAL TABLET 04/10 VIT-FE FUMARATE-FA 38117501944 No Longer Active Dionne Stewart MD Active CVS 28-0.8 MG ORAL TABLET 04/10 CVS 28-0.8 MG ORAL TABLET VIT-FE FUMARATE-FA Inactive TRI-SPRINTEC 0.18/0.215/0.25 MG-35 MCG ORAL TABLET 1 po qd a s directed TRI-SPRINTEC 0.18/0.215/0.25 MG-35 MCG ORAL TABL ET 648916 NORGESTIM-ETH ESTRAD TRIPHASIC Inactive CYCLOBENZAPRINE HCL 10 MG ORAL TABLET 1 tablet by mout h three times daily as needed for muscle spasm/pain CYCLOBENZAP RINE HCL 10 MG ORAL TABLET 305623 CYCLOBENZAPRINE HCL Inactive CONCEPT DHA 53.5-38-1 MG ORAL CAPSULE one tab PO daily CONCEPT DHA 53.5-38-1 MG ORAL CAPSULE RYIUQE-TLVBI-WBJL-FA-O BILLIE 3 Inactive FLAGYL 500 MG ORAL TABLET 1 tablet PO BID for 7 days 2 FLAGYL 500 MG ORAL TABLET 265323 METRONIDAZOLE Inactive FLAGYL 250 MG ORAL TABLET One tablet three times a day FLAGYL 250 MG ORAL TABLET 705897 METRONIDAZOLE Inactive Immunizations Vaccine Administration Date Value [...] 11 .0-15.0 platelet count 226 THOUSAND/UL 10*3/mm3 495-239 0276/05/11 mean platelet volume 10.3 fL 7.5-12.5 Lab [...] N Encounters Code Encounter Date Provider Facility CPT-25286 Level 3 Est. Patient 17:31:05 PRODUCE SERVICE TEAM MEMBER Cintia sommer [facility] Procedures Code Procedure Name Date Entry Date Standard Desc ription CPT-73902 Visit 12:16:56 CDT CPT-97534F Sono OB comp <14 weeks ([place] Only) - X RAY USE ONLY 12:09:02 CDT CPT-28916 Spec Collection and Handling Fee 10:11:50 C DT CPT-27829 Visit 10:11:49 CDT CPT-J1050 Depo Provera 150 mg (Medroxyprogesterone) 08/30 16:06:30 PRODUCE SERVICE TEAM MEMBER CPT-12659 Abx/Therapy Injection 16:06:30 PRODUCE SERVICE TEAM MEMBER CPT-J1050 Depo Provera 150 mg (Medroxyprogesterone) 08/30 15:39:17 PRODUCE SERVICE TEAM MEMBER CPT-12572 Visit 15:01:38 CDT CPT-61120 Sono OB comp > 14 weeks 16:05:04 CDT 03/18 CPT-71028 Spec Collection and Handling Fee 10:45:40 C DT CPT-33540 Visit 10:45:40 CDT
--- OUTSIDE RECORDS SUMMARY | 2020-01-05 00:04 | XMS REPORT | Clinical Summary ---
Author Author Admin, Giuliana Flores Organization [employer] Address Unknown Phone Unavailable Allergies, Adverse Reactions, [...] use disorder NEED FOR PROPHYLACTIC VACCINATION WITH EUNVAVT-MJNUJ-C UBELLA (MMR) VACCINE V06.4 Resolved Cintia Pagan APRN Need for prophylactic vaccination with tfyjegt-gfpor-kdahwhh [MMR] vaccine Contraceptive management V25.9 Resolved Taiwo [...] screening care, delayed ICD-V23.7 Inactive Kristin Pagan SURVEILLANCE SYSTEM MONITOR NEED FOR PROPHYLACTIC VACCINATION WITH ZIFXDXK-LPEFN-U UBELLA (MMR) VACCINE ICD-V06.4 Inactive Cintia Yokum SURVEILLANCE SYSTEM MONITOR Contraceptive management ICD-V25.9 Inactive Dionne Stewart MD follow-up, routine ICD-V24.2 Inacti ve Dionne Stewart MD Vaginal discharge ICD-623.5 Inactive Dionne spencer MD Medication List Medication Instructions Start Date Stop Date Generic Name NDC Status Provider Patient Instruction CONCEPT DHA 53.5-38-1 MG ORAL CAPSULE one tab PO daily MAACMH-IBECT-CWLT-FA-OMEGA 3 64945385553 Active Dionne Stewart MD Active FLAGYL 500 MG ORAL TABLET 1 tablet PO BID for 7 days 2 METRONIDAZOLE 36890841500 No Longer Active Dionne Stewart MD Active TYLENOL PM EXTRA STRENGTH 500-25 MG ORAL TABLET PRN 12/31 DIPHENHYDRAMINE-APAP (SLEEP) 34822753446 Active Dionne Stewart MD Active EQL FORMULA 28-0.8 MG ORAL TABLET 1 tablet daily 1 VIT-FE FUMARATE-FA 78936293380 No Longer Active Dionne Stewart MD A ctive CONCEPT DHA 53.5-38-1 MG ORAL CAPSULE one tab PO daily JZEPQG-GVZKP-OYHL-FA-OMEGA 3 31426600768 No Longer Active Dionne Stewart MD Active CYCLOBENZAPRINE HCL 10 MG ORAL TABLET 1 tablet by mout h three times daily as needed for muscle spasm/pain CYCLOBENZAPRINE HCL 34012952297 No Longer Active Dionne Stewart MD Active TRI-SPRINTEC 0.18/0.215/0.25 MG-35 MCG ORAL TABLET 1 po qd a s directed NORGESTIM-ETH ESTRAD TRIPHASIC 20665630302 N o Longer Active Dionne Stewart MD Active FLAGYL 250 MG ORAL TABLET One tablet three times a day METRONIDAZOLE 15218443151 No Longer Active Cintia Pagan APRN Active [facility] 28-0.8 MG ORAL TABLET 04/10 VIT-FE FUMARATE-FA 27815261886 No Longer Active Dionne Stewart MD Active CVS 28-0.8 MG ORAL TABLET 04/10 CVS 28-0.8 MG ORAL TABLET VIT-FE FUMARATE-FA Inactive TRI-SPRINTEC 0.18/0.215/0.25 MG-35 MCG ORAL TABLET 1 po qd a s directed TRI-SPRINTEC 0.18/0.215/0.25 MG-35 MCG ORAL TABL ET 623339 NORGESTIM-ETH ESTRAD TRIPHASIC Inactive CYCLOBENZAPRINE HCL 10 MG ORAL TABLET 1 tablet by mout h three times daily as needed for muscle spasm/pain CYCLOBENZAP RINE HCL 10 MG ORAL TABLET 304841 CYCLOBENZAPRINE HCL Inactive CONCEPT DHA 53.5-38-1 MG ORAL CAPSULE one tab PO daily CONCEPT DHA 53.5-38-1 MG ORAL CAPSULE IEFYIL-YEZPY-DEZZ-FA-O BILLIE 3 Inactive FLAGYL 500 MG ORAL TABLET 1 tablet PO BID for 7 days 2 FLAGYL 500 MG ORAL TABLET 350351 METRONIDAZOLE Inactive FLAGYL 250 MG ORAL TABLET One tablet three times a day FLAGYL 250 MG ORAL TABLET 720517 METRONIDAZOLE Inactive Immunizations Vaccine Administration Date Value [...] 11 .0-15.0 platelet count 226 THOUSAND/UL 10*3/mm3 107-368 6808/05/11 mean platelet volume 10.3 fL 7.5-12.5 Lab [...] N Encounters Code Encounter Date Provider Facility CPT-14581 Level 3 Est. Patient 17:31:05 BOILER OR ENGINE OPERATOR Cintia sommer [facility] Procedures Code Procedure Name Date Entry Date Standard Desc ription CPT-99946 Visit 12:16:56 CDT CPT-58336J Sono OB comp <14 weeks ([place] Only) - X RAY USE ONLY 12:09:02 CDT CPT-67729 Spec Collection and Handling Fee 10:11:50 C DT CPT-01118 Visit 10:11:49 CDT CPT-J1050 Depo Provera 150 mg (Medroxyprogesterone) 08/30 16:06:30 BOILER OR ENGINE OPERATOR CPT-68730 Abx/Therapy Injection 16:06:30 BOILER OR ENGINE OPERATOR CPT-J1050 Depo Provera 150 mg (Medroxyprogesterone) 08/30 15:39:17 BOILER OR ENGINE OPERATOR CPT-90273 Visit 15:01:38 CDT CPT-06430 Sono OB comp > 14 weeks 16:05:04 CDT 03/18 CPT-14019 Spec Collection and Handling Fee 10:45:40 C DT CPT-31926 Visit 10:45:40 CDT
--- OUTSIDE RECORDS SUMMARY | 2020-01-05 00:04 | XMS REPORT | Clinical Summary ---
Author Author Admin, Giuliana Flores Organization [employer] Address Unknown Phone Unavailable Allergies, Adverse Reactions, [...] use disorder NEED FOR PROPHYLACTIC VACCINATION WITH SKIQFTR-PZPOX-L UBELLA (MMR) VACCINE V06.4 Resolved Cintia Pagan APRN Need for prophylactic vaccination with llpxdkz-zmrik-wrklsrs [MMR] vaccine Contraceptive management V25.9 Resolved Taiwo [...] mother care, delayed ICD-V23.7 Inactive Kristin Pagan WEB CONSULTANT NEED FOR PROPHYLACTIC VACCINATION WITH GMYWZVR-GJSAY-T UBELLA (MMR) VACCINE ICD-V06.4 Inactive Cintia Alkemal WEB CONSULTANT Contraceptive management ICD-V25.9 Inactive Dionne Stewart MD follow-up, routine ICD-V24.2 Inacti ve Dionne Stewart MD Vaginal discharge ICD-623.5 Inactive Dionne spencer MD Medication List Medication Instructions Start Date Stop Date Generic Name NDC Status Provider Patient Instruction CONCEPT DHA 53.5-38-1 MG ORAL CAPSULE one tab PO daily BCFCCK-BTFWQ-PWKI-FA-OMEGA 3 34412892346 Active Dionne Stewart MD Active FLAGYL 500 MG ORAL TABLET 1 tablet PO BID for 7 days 2 METRONIDAZOLE 76581043167 No Longer Active Dionne Stewart MD Active TYLENOL PM EXTRA STRENGTH 500-25 MG ORAL TABLET PRN 12/31 DIPHENHYDRAMINE-APAP (SLEEP) 72547573937 Active Dionne Stewart MD Active EQL FORMULA 28-0.8 MG ORAL TABLET 1 tablet daily 1 VIT-FE FUMARATE-FA 92799271894 No Longer Active Dionne Stewart MD A ctive CONCEPT DHA 53.5-38-1 MG ORAL CAPSULE one tab PO daily AAJRXF-AWAKE-LRPM-FA-OMEGA 3 84323797163 No Longer Active Dionne Stewart MD Active CYCLOBENZAPRINE HCL 10 MG ORAL TABLET 1 tablet by mout h three times daily as needed for muscle spasm/pain CYCLOBENZAPRINE HCL 81282252486 No Longer Active Dionne Stewart MD Active TRI-SPRINTEC 0.18/0.215/0.25 MG-35 MCG ORAL TABLET 1 po qd a s directed NORGESTIM-ETH ESTRAD TRIPHASIC 78049385801 N o Longer Active Dionne Stewart MD Active FLAGYL 250 MG ORAL TABLET One tablet three times a day METRONIDAZOLE 50155942104 No Longer Active Cintia Pagan APRN Active [facility] 28-0.8 MG ORAL TABLET 04/10 VIT-FE FUMARATE-FA 12975228932 No Longer Active Dionne Stewart MD Active CVS 28-0.8 MG ORAL TABLET 04/10 CVS 28-0.8 MG ORAL TABLET VIT-FE FUMARATE-FA Inactive TRI-SPRINTEC 0.18/0.215/0.25 MG-35 MCG ORAL TABLET 1 po qd a s directed TRI-SPRINTEC 0.18/0.215/0.25 MG-35 MCG ORAL TABL ET 717765 NORGESTIM-ETH ESTRAD TRIPHASIC Inactive CYCLOBENZAPRINE HCL 10 MG ORAL TABLET 1 tablet by mout h three times daily as needed for muscle spasm/pain CYCLOBENZAP RINE HCL 10 MG ORAL TABLET 119839 CYCLOBENZAPRINE HCL Inactive CONCEPT DHA 53.5-38-1 MG ORAL CAPSULE one tab PO daily CONCEPT DHA 53.5-38-1 MG ORAL CAPSULE HCFEFZ-MFNTU-KNOG-FA-O BILLIE 3 Inactive FLAGYL 500 MG ORAL TABLET 1 tablet PO BID for 7 days 2 FLAGYL 500 MG ORAL TABLET 410283 METRONIDAZOLE Inactive FLAGYL 250 MG ORAL TABLET One tablet three times a day FLAGYL 250 MG ORAL TABLET 561694 METRONIDAZOLE Inactive Immunizations Vaccine Administration Date Value [...] 11 .0-15.0 platelet count 226 THOUSAND/UL 10*3/mm3 410-243 0167/05/11 mean platelet volume 10.3 fL 7.5-12.5 Lab [...] N Encounters Code Encounter Date Provider Facility CPT-67890 Level 3 Est. Patient 17:31:05 FINANCIAL SUPERVISOR Cintia sommer [facility] Procedures Code Procedure Name Date Entry Date Standard Desc ription CPT-19962 Visit 12:16:56 CDT CPT-52296N Sono OB comp <14 weeks ([place] Only) - X RAY USE ONLY 12:09:02 CDT CPT-77150 Spec Collection and Handling Fee 10:11:50 C DT CPT-95575 Visit 10:11:49 CDT CPT-J1050 Depo Provera 150 mg (Medroxyprogesterone) 08/30 16:06:30 FINANCIAL SUPERVISOR CPT-58177 Abx/Therapy Injection 16:06:30 FINANCIAL SUPERVISOR CPT-J1050 Depo Provera 150 mg (Medroxyprogesterone) 08/30 15:39:17 FINANCIAL SUPERVISOR CPT-52377 Visit 15:01:38 CDT CPT-04265 Sono OB comp > 14 weeks 16:05:04 CDT 03/18 CPT-52931 Spec Collection and Handling Fee 10:45:40 C DT CPT-15582 Visit 10:45:40 CDT
--- OUTSIDE RECORDS SUMMARY | 2020-01-05 00:04 | XMS REPORT | Clinical Summary ---
Author Author Admin, Giuliana Flores Organization [facility] Address Unknown Phone Unavailable Allergies, Adverse Reactions, [...] use disorder NEED FOR PROPHYLACTIC VACCINATION WITH QWSAOTK-ZZHFH-L UBELLA (MMR) VACCINE V06.4 Resolved Cintia Pagan APRN Need for prophylactic vaccination with cnybkvk-lvesn-vajstth [MMR] vaccine Contraceptive management V25.9 Resolved Taiwo [...] screening care, delayed ICD-V23.7 Inactive Kristin Diazkum RN MATERNAL CHILD NEED FOR PROPHYLACTIC VACCINATION WITH GOIJPOD-OOMCQ-S UBELLA (MMR) VACCINE ICD-V06.4 Inactive Cintia Yokum RN MATERNAL CHILD Contraceptive management ICD-V25.9 Inactive Dionne Stewart MD follow-up, routine ICD-V24.2 Inacti ve Dionne Stewart MD Vaginal discharge ICD-623.5 Inactive Dionne spencer MD Medication List Medication Instructions Start Date Stop Date Generic Name NDC Status Provider Patient Instruction CONCEPT DHA 53.5-38-1 MG ORAL CAPSULE one tab PO daily CHVTBT-MYGTT-PVVC-FA-OMEGA 3 85878506424 Active Dionne Stewart MD Active FLAGYL 500 MG ORAL TABLET 1 tablet PO BID for 7 days 2 METRONIDAZOLE 31770013487 No Longer Active Dionne Stewart MD Active TYLENOL PM EXTRA STRENGTH 500-25 MG ORAL TABLET PRN 12/31 DIPHENHYDRAMINE-APAP (SLEEP) 51808723185 Active Dionne Stewart MD Active EQL FORMULA 28-0.8 MG ORAL TABLET 1 tablet daily 1 VIT-FE FUMARATE-FA 01200697379 No Longer Active Dionne Stewart MD A ctive CONCEPT DHA 53.5-38-1 MG ORAL CAPSULE one tab PO daily BQDSWR-AYYFH-UOOK-FA-OMEGA 3 84843333923 No Longer Active Dionne Stewart MD Active CYCLOBENZAPRINE HCL 10 MG ORAL TABLET 1 tablet by mout h three times daily as needed for muscle spasm/pain CYCLOBENZAPRINE HCL 43134853903 No Longer Active Dionne Stewart MD Active TRI-SPRINTEC 0.18/0.215/0.25 MG-35 MCG ORAL TABLET 1 po qd a s directed NORGESTIM-ETH ESTRAD TRIPHASIC 77993453513 N o Longer Active Dionne Stewart MD Active FLAGYL 250 MG ORAL TABLET One tablet three times a day METRONIDAZOLE 40546862247 No Longer Active Cintia Pagan APRN Active [facility]S 28-0.8 MG ORAL TABLET 04/10 VIT-FE FUMARATE-FA 33275788670 No Longer Active Dionne Stewart MD Active CVS 28-0.8 MG ORAL TABLET 04/10 CVS 28-0.8 MG ORAL TABLET VIT-FE FUMARATE-FA Inactive TRI-SPRINTEC 0.18/0.215/0.25 MG-35 MCG ORAL TABLET 1 po qd a s directed TRI-SPRINTEC 0.18/0.215/0.25 MG-35 MCG ORAL TABL ET 432718 NORGESTIM-ETH ESTRAD TRIPHASIC Inactive CYCLOBENZAPRINE HCL 10 MG ORAL TABLET 1 tablet by mout h three times daily as needed for muscle spasm/pain CYCLOBENZAP RINE HCL 10 MG ORAL TABLET 947288 CYCLOBENZAPRINE HCL Inactive CONCEPT DHA 53.5-38-1 MG ORAL CAPSULE one tab PO daily CONCEPT DHA 53.5-38-1 MG ORAL CAPSULE JQUMSA-GXWED-EWUS-FA-O BILLIE 3 Inactive FLAGYL 500 MG ORAL TABLET 1 tablet PO BID for 7 days 2 FLAGYL 500 MG ORAL TABLET 937946 METRONIDAZOLE Inactive FLAGYL 250 MG ORAL TABLET One tablet three times a day FLAGYL 250 MG ORAL TABLET 958699 METRONIDAZOLE Inactive Immunizations Vaccine Administration Date Value [...] 11 .0-15.0 platelet count 226 THOUSAND/UL 10*3/mm3 782-454 2629/05/11 mean platelet volume 10.3 fL 7.5-12.5 Blood [...] N Encounters Code Encounter Date Provider Facility CPT-73013 Level 3 Est. Patient 17:31:05 ASSISTANT CHIEF NURSING OFFICER Cintia sommer [facility] Procedures Code Procedure Name Date Entry Date Standard Desc ription CPT-43240 Visit 15:58:08 CDT CPT-06938 Visit 12:16:56 CDT CPT-63969W Sono OB comp <14 weeks ([place] Only) - X RAY USE ONLY 12:09:02 CDT CPT-01898 Spec Collection and Handling Fee 10:11:50 C DT CPT-64721 Visit 10:11:49 CDT CPT-J1050 Depo Provera 150 mg (Medroxyprogesterone) 08/30 16:06:30 ASSISTANT CHIEF NURSING OFFICER CPT-26099 Abx/Therapy Injection 16:06:30 ASSISTANT CHIEF NURSING OFFICER CPT-J1050 Depo Provera 150 mg (Medroxyprogesterone) 08/30 15:39:17 ASSISTANT CHIEF NURSING OFFICER CPT-08402 Visit 15:01:38 CDT CPT-62885 Sono OB comp > 14 weeks 16:05:04 CDT 03/18 CPT-87505 Spec Collection and Handling Fee 10:45:40 C DT CPT-22719 Visit 10:45:40 CDT
--- OUTSIDE RECORDS SUMMARY | 2020-01-05 00:04 | XMS REPORT | Clinical Summary ---
Author Author Admin, Giuliana Flores Organization [facility] [employer] Address Unknown Phone Unavailable Allergies, Adverse Reactions, [...] use disorder NEED FOR PROPHYLACTIC VACCINATION WITH LZQDFMZ-LMMFN-B UBELLA (MMR) VACCINE V06.4 Resolved Cintia Pagan APRN Need for prophylactic vaccination with slogiup-dxevm-tbxovbb [MMR] vaccine Contraceptive management V25.9 Resolved Taiwo [...] screening care, delayed ICD-V23.7 Inactive Kristin Pagan HEALTH OUTCOMES LIAISON NEED FOR PROPHYLACTIC VACCINATION WITH IMTUTRH-LAKTW-Z UBELLA (MMR) VACCINE ICD-V06.4 Inactive Cintia Yokum HEALTH OUTCOMES LIAISON Contraceptive management ICD-V25.9 Inactive Dionne Stewart MD follow-up, routine ICD-V24.2 Inacti ve Dionne Stewart MD Vaginal discharge ICD-623.5 Inactive Dionne spencer MD Medication List Medication Instructions Start Date Stop Date Generic Name NDC Status Provider Patient Instruction CONCEPT DHA 53.5-38-1 MG ORAL CAPSULE one tab PO daily SCBRMT-EMWEF-HEEI-FA-OMEGA 3 42996019105 Active Dionne Stewart MD Active FLAGYL 500 MG ORAL TABLET 1 tablet PO BID for 7 days 2 METRONIDAZOLE 73453731787 No Longer Active Dionne Stewart MD Active TYLENOL PM EXTRA STRENGTH 500-25 MG ORAL TABLET PRN 12/31 DIPHENHYDRAMINE-APAP (SLEEP) 21302350617 Active Dionne Stewart MD Active EQL FORMULA 28-0.8 MG ORAL TABLET 1 tablet daily 1 VIT-FE FUMARATE-FA 10892155291 No Longer Active Dionne Stewart MD A ctive CONCEPT DHA 53.5-38-1 MG ORAL CAPSULE one tab PO daily BRFIPD-NACZL-PEBU-FA-OMEGA 3 72057093358 No Longer Active Dionne Stewart MD Active CYCLOBENZAPRINE HCL 10 MG ORAL TABLET 1 tablet by mout h three times daily as needed for muscle spasm/pain CYCLOBENZAPRINE HCL 86538068708 No Longer Active Dionne Stewart MD Active TRI-SPRINTEC 0.18/0.215/0.25 MG-35 MCG ORAL TABLET 1 po qd a s directed NORGESTIM-ETH ESTRAD TRIPHASIC 14520311115 N o Longer Active Dionne Stewart MD Active FLAGYL 250 MG ORAL TABLET One tablet three times a day METRONIDAZOLE 89074997202 No Longer Active Cintia Pagan APRN Active CVS 28-0.8 MG ORAL TABLET 04/10 VIT-FE FUMARATE-FA 33396441077 No Longer Active Dionne Stewart MD Active CVS 28-0.8 MG ORAL TABLET 04/10 CVS 28-0.8 MG ORAL TABLET VIT-FE FUMARATE-FA Inactive TRI-SPRINTEC 0.18/0.215/0.25 MG-35 MCG ORAL TABLET 1 po qd a s directed TRI-SPRINTEC 0.18/0.215/0.25 MG-35 MCG ORAL TABL ET 232228 NORGESTIM-ETH ESTRAD TRIPHASIC Inactive CYCLOBENZAPRINE HCL 10 MG ORAL TABLET 1 tablet by mout h three times daily as needed for muscle spasm/pain CYCLOBENZAP RINE HCL 10 MG ORAL TABLET 253499 CYCLOBENZAPRINE HCL Inactive CONCEPT DHA 53.5-38-1 MG ORAL CAPSULE one tab PO daily CONCEPT DHA 53.5-38-1 MG ORAL CAPSULE BXJUSK-KCDYB-PNDH-FA-O BILLIE 3 Inactive FLAGYL 500 MG ORAL TABLET 1 tablet PO BID for 7 days 2 FLAGYL 500 MG ORAL TABLET 305535 METRONIDAZOLE Inactive FLAGYL 250 MG ORAL TABLET One tablet three times a day FLAGYL 250 MG ORAL TABLET 685798 METRONIDAZOLE Inactive Immunizations Vaccine Administration Date Value [...] 11 .0-15.0 platelet count 226 THOUSAND/UL 10*3/mm3 160-715 5266/05/11 mean platelet volume 10.3 fL 7.5-12.5 Lab [...] N Encounters Code Encounter Date Provider Facility CPT-00674 Level 3 Est. Patient 17:31:05 WATCH AND CLOCK MAKER AND REPAIRER Cintia sommer [facility] Procedures Code Procedure Name Date Entry Date Standard Desc ription CPT-89618 Visit 12:16:56 CDT CPT-56431A Sono OB comp <14 weeks ([place] Only) - X RAY USE ONLY 12:09:02 CDT CPT-11968 Spec Collection and Handling Fee 10:11:50 C DT CPT-42437 Visit 10:11:49 CDT CPT-J1050 Depo Provera 150 mg (Medroxyprogesterone) 08/30 16:06:30 WATCH AND CLOCK MAKER AND REPAIRER CPT-23919 Abx/Therapy Injection 16:06:30 WATCH AND CLOCK MAKER AND REPAIRER CPT-J1050 Depo Provera 150 mg (Medroxyprogesterone) 08/30 15:39:17 WATCH AND CLOCK MAKER AND REPAIRER CPT-67512 Visit 15:01:38 CDT CPT-30125 Sono OB comp > 14 weeks 16:05:04 CDT 03/18 CPT-73700 Spec Collection and Handling Fee 10:45:40 C DT CPT-00922 Visit 10:45:40 CDT
--- OUTSIDE RECORDS SUMMARY | 2020-01-05 00:04 | XMS REPORT | Clinical Summary ---
Author Author Admin, Giuliana Flores Organization [employer] Address Unknown Phone Unavailable Allergies, Adverse Reactions, [...] use disorder NEED FOR PROPHYLACTIC VACCINATION WITH UEQUVQM-SBYJE-J UBELLA (MMR) VACCINE V06.4 Resolved Cintia Pagan APRN Need for prophylactic vaccination with zihoqnu-abimg-weqfdja [MMR] vaccine Contraceptive management V25.9 Resolved Taiwo [...] screening care, delayed ICD-V23.7 Inactive Kristin Pagan FURNITURE ARRANGER NEED FOR PROPHYLACTIC VACCINATION WITH ZINSWGA-UJKDP-G UBELLA (MMR) VACCINE ICD-V06.4 Inactive Cintia Yokum FURNITURE ARRANGER Contraceptive management ICD-V25.9 Inactive Dionne Stewart MD follow-up, routine ICD-V24.2 Inacti ve Dionne Stewart MD Vaginal discharge ICD-623.5 Inactive Dionne spencer MD Medication List Medication Instructions Start Date Stop Date Generic Name NDC Status Provider Patient Instruction CONCEPT DHA 53.5-38-1 MG ORAL CAPSULE one tab PO daily FRNKPV-EYLAJ-ICDP-FA-OMEGA 3 02218620558 Active Dionne Stewart MD Active FLAGYL 500 MG ORAL TABLET 1 tablet PO BID for 7 days 2 METRONIDAZOLE 36689412143 No Longer Active Dionne Stewart MD Active TYLENOL PM EXTRA STRENGTH 500-25 MG ORAL TABLET PRN 12/31 DIPHENHYDRAMINE-APAP (SLEEP) 48706830226 Active Dionne Stewart MD Active EQL FORMULA 28-0.8 MG ORAL TABLET 1 tablet daily 1 VIT-FE FUMARATE-FA 26524444008 No Longer Active Dionne Stewart MD A ctive CONCEPT DHA 53.5-38-1 MG ORAL CAPSULE one tab PO daily FWBBMT-ZZGSK-YTHE-FA-OMEGA 3 64540692592 No Longer Active Dionne Stewart MD Active CYCLOBENZAPRINE HCL 10 MG ORAL TABLET 1 tablet by mout h three times daily as needed for muscle spasm/pain CYCLOBENZAPRINE HCL 21213362928 No Longer Active Dionne Stewart MD Active TRI-SPRINTEC 0.18/0.215/0.25 MG-35 MCG ORAL TABLET 1 po qd a s directed NORGESTIM-ETH ESTRAD TRIPHASIC 11969226038 N o Longer Active Dionne Stewart MD Active FLAGYL 250 MG ORAL TABLET One tablet three times a day METRONIDAZOLE 75542791097 No Longer Active Cintia Pagan APRN Active CVS 28-0.8 MG ORAL TABLET 04/10 VIT-FE FUMARATE-FA 94398962135 No Longer Active Dionne Stewart MD Active CVS 28-0.8 MG ORAL TABLET 04/10 CVS 28-0.8 MG ORAL TABLET VIT-FE FUMARATE-FA Inactive TRI-SPRINTEC 0.18/0.215/0.25 MG-35 MCG ORAL TABLET 1 po qd a s directed TRI-SPRINTEC 0.18/0.215/0.25 MG-35 MCG ORAL TABL ET 674843 NORGESTIM-ETH ESTRAD TRIPHASIC Inactive CYCLOBENZAPRINE HCL 10 MG ORAL TABLET 1 tablet by mout h three times daily as needed for muscle spasm/pain CYCLOBENZAP RINE HCL 10 MG ORAL TABLET 961941 CYCLOBENZAPRINE HCL Inactive CONCEPT DHA 53.5-38-1 MG ORAL CAPSULE one tab PO daily CONCEPT DHA 53.5-38-1 MG ORAL CAPSULE CNBGEV-NLDBX-RXGR-FA-O BILLIE 3 Inactive FLAGYL 500 MG ORAL TABLET 1 tablet PO BID for 7 days 2 FLAGYL 500 MG ORAL TABLET 661278 METRONIDAZOLE Inactive FLAGYL 250 MG ORAL TABLET One tablet three times a day FLAGYL 250 MG ORAL TABLET 074967 METRONIDAZOLE Inactive Immunizations Vaccine Administration Date Value [...] 11 .0-15.0 platelet count 226 THOUSAND/UL 10*3/mm3 698-750 9928/05/11 mean platelet volume 10.3 fL 7.5-12.5 Lab [...] N Encounters Code Encounter Date Provider Facility CPT-90320 Level 3 Est. Patient 17:31:05 SUBASSEMBLY ASSEMBLER Cintia sommer [facility] Procedures Code Procedure Name Date Entry Date Standard Desc ription CPT-39844 Visit 12:16:56 CDT CPT-43442Z Sono OB comp <14 weeks ([place] Only) - X RAY USE ONLY 12:09:02 CDT CPT-48350 Spec Collection and Handling Fee 10:11:50 C DT CPT-50251 Visit 10:11:49 CDT CPT-J1050 Depo Provera 150 mg (Medroxyprogesterone) 08/30 16:06:30 SUBASSEMBLY ASSEMBLER CPT-98683 Abx/Therapy Injection 16:06:30 SUBASSEMBLY ASSEMBLER CPT-J1050 Depo Provera 150 mg (Medroxyprogesterone) 08/30 15:39:17 SUBASSEMBLY ASSEMBLER CPT-19471 Visit 15:01:38 CDT CPT-55989 Sono OB comp > 14 weeks 16:05:04 CDT 03/18 CPT-21888 Spec Collection and Handling Fee 10:45:40 C DT CPT-23355 Visit 10:45:40 CDT
--- OUTSIDE RECORDS SUMMARY | 2020-01-05 00:05 | XMS REPORT | Clinical Summary ---
Author Author Admin, Giuliana Vasquez Organization [facility] Address Unknown Phone Unavailable Allergies, Adverse Reactions, Alerts Allergy Name Reaction Description Start Date Severity Status Pr ovider No Known Allergies Megan Wise Conditions or Problems Problem Name Problem Code Onset Date Status Entry Date Provider Comment Standard Description Annotate Supervision of other normal V22.1 Active Dionne Stewart MD Supervision of other normal care, delayed V23.7 Active Dionne spear MD Supervision of high-risk : insufficient care Drug abuse, hx of V15.89 Active Dionne Stewart MD Other specified personal history presenting hazards to health Tobacco abuse, gestational 305.1 Active Nilda Stewart MD Tobacco use disorder NEED FOR PROPHYLACTIC VACCINATION WITH WLGYQAJ-ODMDG-B UBELLA (MMR) VACCINE V06.4 Active Dionne Stewart MD Need for prophylactic vaccination with yetyxev-wfxrs-aerefcq [MMR] vaccine Contraceptive management V25.9 Active Cintia sommer APRN Encounter for unspecified contraceptive management Medication List Medication Instructions Start Date Stop Date Generic Name NDC Status Provider Patient Instruction FLAGYL 250 MG TAB One tablet three times a day METRONIDAZOLE 97476891009 Active Cintia Yokum BRAND COORDINATOR Active CYCLOBENZAPRINE HCL 10 MG TABS 1 tablet by mouth three times daily as needed for muscle spasm/pain CYCLOBENZAPRINE HCL 29951388792 Active Cintia Pagan APRN Active CONCEPT DHA 53.5-38-1 MG ORAL CAPS one tab PO daily LQXIMO-UZFBH-OHPX-FA-OMEGA 3 34531561123 Active Dionne Stewart MD Active CVS 28-0.8 MG ORAL TABS VIT-FE FUMARATE-FA 75893893246 No Longer Active Dionne Stewart MD Active CVS 28-0.8 MG ORAL TABS CVS 28-0.8 MG ORAL TABS VIT-FE FUMARATE-FA Inactive Immunizations Vaccine Administration Date Value Standard Koko cription hepatitis B vaccine series no hepat itis B vaccine, unspecified formulation Vital Signs Date Name Value Unit Range Description blood pressure, diastolic - 8462-4 63 mm[Hg] BP miramontes blood pressure, systolic - 8480-6 105 mm[Hg] BP sys pulse rate E&M - 8867-4 76 /min H eart rate temperature E&M 98.8 [degF] Body temp erature weight E&M - 3141-9 158 [lb_av] Weigh t Measured blood pressure, diastolic - 8462-4 65 mm[Hg] BP miramontes blood pressure, systolic - 8480-6 105 mm[Hg] BP sys height E&M - 8302-2 60 [in_us] Bdy h eight pulse rate E&M - 8867-4 82 /min H eart rate temperature E&M 97.8 [degF] Body temp erature weight E&M - 3141-9 150 [lb_av] Weigh t Measured Diagnostic Results Date Name Value Unit Range Description Lab Report: ABO GROUP & RH TYPE, ANTIBOD Y SCREEN, RBCW/REFL I, CBC (IN ... - Blood bank Rh antigen RH(D) POSITIVE antibody screen, serum NO ANTIBODIES DETECTED Lab Report: ABO GROUP & RH TYPE, ANTIBOD Y SCREEN, RBCW/REFL I, CBC (IN ... - Hematology leukocyte count, blood 10.1 THOUSAND/UL 10*3/mm3 3.8-10. 8 erythrocyte (RBC) count 3.66 MILLION/UL 10*6/mm3 3.80-5. 10 hemoglobin, blood 11.9 g/dL 11.7-15.5 hematocrit, blood 36.2 % 35.0-45.0 mean corpuscular volume, RBC 99.0 fL 80.0-10 0.0 mean corpuscular hemoglobin, RBC 32.5 pg 27. 0-33.0 mean corpuscular hemoglobin concentration, RBC 32.8 G/DL % 32.0-36.0 red blood cell distribution width 13.7 % 11 .0-15.0 platelet count 211 THOUSAND/UL 10*3/mm3 965-776 8908/07/24 mean platelet volume 8.5 fL 7.5-11.5 Blood type O Lab Report: ABO GROUP & RH TYPE, ANTIBOD Y SCREEN, RBCW/REFL I, CBC (IN ... - Lab chlamydia DNA probe NOT DETECTED NOT DETECTED Lab Report: ABO GROUP & RH TYPE, ANTIBOD Y SCREEN, RBCW/REFL I, CBC (IN ... - Microbiology Neisseria gonorrhoeae DNA probe NOT DETECTED NO T DETECTED Lab Report: Drug Abuse Pnl 10-50/07373, RPR (DX) W/REFL TITER & CONFIR - Serology rapid plasma reagin antibody titer NON-REACTIVE NON-REACTIVE Lab Report: HEPATITIS B S AG W/, HIV-1/2 Agn/Mikaela/40972, RUBELLA IGG AB( ... - Chemistry hepatitis B surface antigen NON-REACTIVE NON-RE ACTIVE Lab Report: HEPATITIS B S AG W/, HIV-1/2 Agn/Mikaela/78777, RUBELLA IGG AB( ... - Serology rubella antibody, serum, IgG 1.06 Lab Report: Thyroid Stimulating Hormone (L), Wet Prep - Chemistry TSH 0.70 m[iU]/mL 0.36-3.74 Lab Report: [facility] [place] - Chemistry human chorionic gonadotropin , urine, qualitative (urine test) Negative Negative Office Visit: Initial OB Visit - Blood b ank antibody screen, serum negative Rh antigen pos blood type with RH factor O Office Visit: Initial OB Visit - Glost Tile Shader ry Neisseria gonorrhoeae, genital culture negative protein, total urine random UC mg/dL hepatitis B surface antigen negative Office Visit: Initial OB Visit - Genetic s/fertility test, date 01/23/2015 Office Visit: Initial OB Visit - Hematol ogy hemoglobin, blood 11.9 g/dL Office Visit: Initial OB Visit - Lab chlamydia DNA probe negative Office Visit: Initial OB Visit - Microbi ology Herpes Simplex Virus Genital no urine culture (with units of CFunits/mL) negative {cfu}/ mL Office Visit: Initial OB Visit - Serolog y VDRL, serum negative rubella antibody, serum, titer non-immune Office Visit: Initial OB Visit - Urinaly sis glucose, urine, semiquantitative UC nitrite, urine, semiquantitative UC Office Visit: OB Visit - Chemistry protein, total urine random N mg/dL Office Visit: OB Visit - Urinalysis glucose, urine, semiquantitative N nitrite, urine, semiquantitative N Procedures Code Procedure Name Date Entry Date Standard Desc ription CPT-J1050 Depo Provera 150 mg (Medroxyprogesterone) 08/30 16:06:30 WHITING CAN WORKER CPT-69876 Abx/Therapy Injection 16:06:30 WHITING CAN WORKER CPT-J1050 Depo Provera 150 mg (Medroxyprogesterone) 08/30 15:39:17 WHITING CAN WORKER CPT-88330 Visit 15:01:38 CDT CPT-89876 Sono OB comp > 14 weeks 16:05:04 CDT 03/18 CPT-39538 Spec Collection and Handling Fee 10:45:40 C DT CPT-52052 Visit 10:45:40 CDT
--- OUTSIDE RECORDS SUMMARY | 2020-01-05 00:05 | XMS REPORT | Clinical Summary ---
Author Author Admin, Giuliana Flores Organization [facility] [employer] Address Unknown Phone Unavailable Allergies, Adverse Reactions, [...] use disorder NEED FOR PROPHYLACTIC VACCINATION WITH NUMXKYH-KFQJM-F UBELLA (MMR) VACCINE V06.4 Resolved Cintia Pagan APRN Need for prophylactic vaccination with klsiwcx-mxvst-rimhjsg [MMR] vaccine Contraceptive management V25.9 Resolved Taiwo [...] mother care, delayed ICD-V23.7 Inactive Kristin Pagan BOOK JACKET COVER MACHINE OPERATOR NEED FOR PROPHYLACTIC VACCINATION WITH XACDSYK-SXTJF-E UBELLA (MMR) VACCINE ICD-V06.4 Inactive Cintia Alkemal BOOK JACKET COVER MACHINE OPERATOR Contraceptive management ICD-V25.9 Inactive Dionne Stewart MD follow-up, routine ICD-V24.2 Inacti ve Dionne Stewart MD Vaginal discharge ICD-623.5 Inactive Dionne spencer MD Medication List Medication Instructions Start Date Stop Date Generic Name NDC Status Provider Patient Instruction CONCEPT DHA 53.5-38-1 MG ORAL CAPSULE one tab PO daily HMSDSJ-GMYEZ-XQCW-FA-OMEGA 3 31050515434 Active Dionne Stewart MD Active FLAGYL 500 MG ORAL TABLET 1 tablet PO BID for 7 days 2 METRONIDAZOLE 68827426684 No Longer Active Dionne Stewart MD Active TYLENOL PM EXTRA STRENGTH 500-25 MG ORAL TABLET PRN 12/31 DIPHENHYDRAMINE-APAP (SLEEP) 25880464805 Active Dionne Stewart MD Active EQL FORMULA 28-0.8 MG ORAL TABLET 1 tablet daily 1 VIT-FE FUMARATE-FA 68578634061 No Longer Active Dionne Stewart MD A ctive CONCEPT DHA 53.5-38-1 MG ORAL CAPSULE one tab PO daily RJDJVB-CXRHI-KAOC-FA-OMEGA 3 42747543378 No Longer Active Dionne Stewart MD Active CYCLOBENZAPRINE HCL 10 MG ORAL TABLET 1 tablet by mout h three times daily as needed for muscle spasm/pain CYCLOBENZAPRINE HCL 24253530666 No Longer Active Dionne Stewart MD Active TRI-SPRINTEC 0.18/0.215/0.25 MG-35 MCG ORAL TABLET 1 po qd a s directed NORGESTIM-ETH ESTRAD TRIPHASIC 14475323167 N o Longer Active Dionne Stewart MD Active FLAGYL 250 MG ORAL TABLET One tablet three times a day METRONIDAZOLE 30492492792 No Longer Active Cintia Pagan APRN Active CVS 28-0.8 MG ORAL TABLET 04/10 VIT-FE FUMARATE-FA 06583888686 No Longer Active Dionne Stewart MD Active CVS 28-0.8 MG ORAL TABLET 04/10 CVS 28-0.8 MG ORAL TABLET VIT-FE FUMARATE-FA Inactive TRI-SPRINTEC 0.18/0.215/0.25 MG-35 MCG ORAL TABLET 1 po qd a s directed TRI-SPRINTEC 0.18/0.215/0.25 MG-35 MCG ORAL TABL ET 846803 NORGESTIM-ETH ESTRAD TRIPHASIC Inactive CYCLOBENZAPRINE HCL 10 MG ORAL TABLET 1 tablet by mout h three times daily as needed for muscle spasm/pain CYCLOBENZAP RINE HCL 10 MG ORAL TABLET 369233 CYCLOBENZAPRINE HCL Inactive CONCEPT DHA 53.5-38-1 MG ORAL CAPSULE one tab PO daily CONCEPT DHA 53.5-38-1 MG ORAL CAPSULE JWZGWM-OMNWG-DVNA-FA-O BILLIE 3 Inactive FLAGYL 500 MG ORAL TABLET 1 tablet PO BID for 7 days 2 FLAGYL 500 MG ORAL TABLET 946036 METRONIDAZOLE Inactive FLAGYL 250 MG ORAL TABLET One tablet three times a day FLAGYL 250 MG ORAL TABLET 300827 METRONIDAZOLE Inactive Immunizations Vaccine Administration Date Value [...] 11 .0-15.0 platelet count 226 THOUSAND/UL 10*3/mm3 796-618 1111/05/11 mean platelet volume 10.3 fL 7.5-12.5 Lab [...] N Encounters Code Encounter Date Provider Facility CPT-95430 Level 3 Est. Patient 17:31:05 AUTOMATION MANAGER Cintia sommer [facility] Procedures Code Procedure Name Date Entry Date Standard Desc ription CPT-33555 Visit 12:16:56 CDT CPT-99158K Sono OB comp <14 weeks ([place] Only) - X RAY USE ONLY 12:09:02 CDT CPT-51534 Spec Collection and Handling Fee 10:11:50 C DT CPT-22774 Visit 10:11:49 CDT CPT-J1050 Depo Provera 150 mg (Medroxyprogesterone) 08/30 16:06:30 AUTOMATION MANAGER CPT-02674 Abx/Therapy Injection 16:06:30 AUTOMATION MANAGER CPT-J1050 Depo Provera 150 mg (Medroxyprogesterone) 08/30 15:39:17 AUTOMATION MANAGER CPT-80458 Visit 15:01:38 CDT CPT-58091 Sono OB comp > 14 weeks 16:05:04 CDT 03/18 CPT-92316 Spec Collection and Handling Fee 10:45:40 C DT CPT-03250 Visit 10:45:40 CDT
--- OUTSIDE RECORDS SUMMARY | 2020-01-05 00:05 | XMS REPORT | Clinical Summary ---
Author Author Admin, Giuliana Vasquez Organization [employer] [facility] Address Unknown Phone Unavailable Allergies, Adverse Reactions, Alerts Allergy Name Reaction Description Start Date Severity Status Pr ovider Allergies Unknown Conditions or Problems Problem Name Problem Code [...] Active Nilda Stewart MD Tobacco use disorder Medication List Medication Instructions Start Date Stop Date Generic Name NDC Status Provider Patient Instruction CVS 28-0.8 MG ORAL TABS PRE VIT-FE FUMARATE-FA 54379861087 Active Dionne Stewart MD Active Diagnostic Results Date Name Value Unit Range Description Lab Report: Thyroid Stimulating Hormone (L), Wet Prep - Chemistry TSH 0.70 m[iU]/mL 0.36-3.74 Procedures Code Procedure Name Date Entry Date Standard Desc ription CPT-38421 Spec Collection and Handling Fee 10:45:40 C DT CPT-98946 Visit 10:45:40 CDT
--- OUTSIDE RECORDS SUMMARY | 2020-01-05 00:05 | XMS REPORT | Clinical Summary ---
Author Author Admin, Giuliana Vasquez Organization [employer] Address Unknown Phone Unavailable Allergies, Adverse Reactions, [...] to health Tobacco abuse, gestational 305.1 Active Nlida Stewart MD Tobacco use disorder NEED FOR PROPHYLACTIC VACCINATION WITH UCHEEZG-GQSRO-Y UBELLA (MMR) VACCINE V06.4 Active Dionne Stewart MD Need for prophylactic vaccination with jvscltc-napfc-xekrruw [MMR] vaccine Contraceptive management V25.9 Active Cintia sommer APRN Encounter for unspecified contraceptive management Medication List Medication Instructions Start Date Stop Date Generic Name NDC Status Provider Patient Instruction FLAGYL 250 MG TAB One tablet three times a day METRONIDAZOLE 38066897791 Active Cintia Yokum DIESEL AUTOMOTIVE TECHNICIAN Active CYCLOBENZAPRINE HCL 10 MG TABS 1 tablet by mouth three times daily as needed for muscle spasm/pain CYCLOBENZAPRINE HCL 12270724048 Active Cintia Pagan APRN Active CONCEPT DHA 53.5-38-1 MG ORAL CAPS one tab PO daily KCBBWU-TNORR-RMVD-FA-OMEGA 3 63956873438 Active Dionne Stewart MD Active CVS 28-0.8 MG ORAL TABS VIT-FE FUMARATE-FA 32200962658 No Longer Active Dionne Stewart MD Active [...] 11 .0-15.0 platelet count 211 THOUSAND/UL 10*3/mm3 182-266 9672/07/24 mean platelet volume 8.5 fL 7.5-11.5 Blood [...] T DETECTED Lab Report: Drug Abuse Pnl 10-50/48868, RPR (DX) W/REFL TITER & CONFIR - Serology rapid plasma reagin antibody titer NON-REACTIVE NON-REACTIVE Lab Report: HEPATITIS B S AG W/, HIV-1/2 Agn/Mikaela/38452, RUBELLA IGG AB( ... - Chemistry hepatitis B surface antigen NON-REACTIVE NON-RE ACTIVE Lab Report: HEPATITIS B S AG W/, HIV-1/2 Agn/Mikaela/68682, RUBELLA IGG AB( ... - Serology rubella antibody, serum, IgG 1.06 Lab Report: Thyroid Stimulating Hormone (L), Wet Prep - Chemistry TSH 0.70 m[iU]/mL 0.36-3.74 Lab Report: [facility] [place] - Chemistry human chorionic gonadotropin , urine, qualitative (urine test) Negative Negative Office Visit: Initial OB Visit - Blood b ank antibody screen, serum negative Rh antigen pos blood type with RH factor O Office Visit: Initial OB Visit - Tape Weaver ry Neisseria gonorrhoeae, genital culture negative protein, [...] Depo Provera 150 mg (Medroxyprogesterone) 08/30 16:06:30 HITTING COACH CPT-00073 Abx/Therapy Injection 16:06:30 HITTING COACH CPT-J1050 Depo Provera 150 mg (Medroxyprogesterone) 08/30 15:39:17 HITTING COACH CPT-41465 Visit 15:01:38 CDT CPT-42870 Sono OB comp > 14 weeks 16:05:04 CDT 03/18 CPT-17609 Spec Collection and Handling Fee 10:45:40 C DT CPT-95859 Visit 10:45:40 CDT
--- OUTSIDE RECORDS SUMMARY | 2020-01-05 00:05 | XMS REPORT | Clinical Summary ---
Author Author Admin, Giuliana Vasquez Organization [employer] Address Unknown Phone Unavailable Allergies, Adverse Reactions, [...] use disorder NEED FOR PROPHYLACTIC VACCINATION WITH QAFLPNI-EGDNG-Y UBELLA (MMR) VACCINE V06.4 Active Dionne Stewart MD Need for prophylactic vaccination with husakde-oteiy-advqewf [MMR] vaccine Medication List Medication Instructions Start Date Stop Date Generic Name NDC Status Provider Patient Instruction CVS 28-0.8 MG ORAL TABS PRE VIT-FE FUMARATE-FA 65048182113 Active Dionne Stewart MD Active Immunizations Vaccine Administration Date Value Standard Koko cription hepatitis B vaccine series no hepat itis B vaccine, unspecified formulation Vital Signs Date Name Value Unit Range Description blood pressure, diastolic - 8462-4 65 mm[Hg] [...] 11 .0-15.0 platelet count 211 THOUSAND/UL 10*3/mm3 089-225 6335/07/24 mean platelet volume 8.5 fL 7.5-11.5 Blood [...] T DETECTED Lab Report: Drug Abuse Pnl 1050/55163, RPR (DX) W/REFL TITER & CONFIR - Serology rapid plasma reagin antibody titer NON-REACTIVE NON-REACTIVE Lab Report: HEPATITIS B S AG W/, HIV-1/2 Agn/Mikaela/37679, RUBELLA IGG AB( ... - Chemistry hepatitis B surface antigen NON-REACTIVE NON-RE ACTIVE Lab Report: HEPATITIS B S AG W/, HIV-1/2 Agn/Mikaela/67836, RUBELLA IGG AB( ... - Serology rubella antibody, serum, IgG 1.06 Lab Report: Thyroid Stimulating Hormone (L), Wet Prep - Chemistry TSH 0.70 m[iU]/mL 0.36-3.74 Office Visit: Initial OB Visit - Blood b ank antibody screen, serum negative Rh antigen pos blood type with RH factor O Office Visit: Initial OB Visit - Card Checker ry Neisseria gonorrhoeae, genital culture negative protein, [...] urine, semiquantitative UC nitrite, urine, semiquantitative UC Procedures Code Procedure Name Date Entry Date Standard Desc ription CPT-44391 Sono OB comp > 14 weeks 16:05:04 CDT 03/18 CPT-11798 Spec Collection and Handling Fee 10:45:40 C DT CPT-86008 Visit 10:45:40 CDT
--- OUTSIDE RECORDS SUMMARY | 2020-01-05 00:05 | XMS REPORT | Clinical Summary ---
Author Author Admin, Giuliana Flores Organization [employer] Address Unknown Phone Unavailable Allergies, Adverse Reactions, Alerts Allergy Name Reaction Description Start Date Severity Status Pr ovider No Known Allergies Amanda R obb RMA Conditions or Problems Problem Name Problem Code Onset Date Status Entry Date Provider Comment Standard Description Annotate Supervision of other normal V22.1 Resolved Cintia Pagan APRN Supervision of other normal care, delayed V23.7 Resolved Cintia flores APRN Supervision of high-risk : insufficient care Drug abuse, hx of V15.89 Active Dionne Stewart MD Other specified personal history presenting hazards to health Tobacco abuse, gestational 305.1 Active Nilda Stewart MD Tobacco use disorder NEED FOR PROPHYLACTIC VACCINATION WITH HJPXBBX-DAOXE-B UBELLA (MMR) VACCINE V06.4 Resolved Cintia Pagan APRN Need for prophylactic vaccination with jmtrrrd-rjrdj-lnmkpqf [MMR] vaccine Contraceptive management V25.9 Active Cintia sommer TRANSLATOR Encounter for unspecified contraceptive management follow-up, routine V24.2 Active 09/08 Cintia Pagan APRN Routine follow-up Vaginal discharge 623.5 Active Cintia Pagan APRN Leukorrhea, not specified as infective Supervision of other normal ICD-V22.1 7 Inactive Cintia Pagan APRN care, delayed ICD-V23.7 Inactive Kristin Pagan TRANSLATOR NEED FOR PROPHYLACTIC VACCINATION WITH LKLWHYS-TLCPA-J UBELLA (MMR) VACCINE ICD-V06.4 Inactive Cintia Pagan TRANSLATOR Medication List Medication Instructions Start Date Stop Date Generic Name NDC Status Provider Patient Instruction FLAGYL 250 MG TAB One tablet three times a day METRONIDAZOLE 15759916642 No Longer Active Cintia Pagan APRN Active CYCLOBENZAPRINE HCL 10 MG TABS 1 tablet by mouth three times daily as needed for muscle spasm/pain CYCLOBENZAPRINE HCL 36003204420 Active Cintia Pagan TRANSLATOR Active CONCEPT DHA 53.5-38-1 MG ORAL CAPS one tab PO daily XLTDXW-WHQLY-PKEH-FA-OMEGA 3 18286695795 Active Dionne Stewart MD Active CVS 28-0.8 MG ORAL TABS VIT-FE FUMARATE-FA 13621833081 No Longer Active Dionne Stewart MD Active CVS 28-0.8 MG ORAL TABS CVS 28-0.8 MG ORAL TABS VIT-FE FUMARATE-FA Inactive FLAGYL 250 MG TAB One tablet three times a day FLAGYL 250 MG TAB 762011 METRONIDAZOLE Inactive Immunizations Vaccine Administration Date Value Standard Koko cription hepatitis B vaccine series no hepat itis B vaccine, unspecified formulation Vital Signs Date Name Value Unit Range Description blood pressure, diastolic - 8462-4 71 mm[Hg] BP miramontes blood pressure, systolic - 8480-6 120 mm[Hg] BP sys pulse rate E&M - 8867-4 85 /min H eart rate temperature E&M 95.8 [degF] Body temp erature weight E&M - 3141-9 143 [lb_av] Weigh t Measured blood pressure, diastolic - 8462-4 63 mm[Hg] [...] 11 .0-15.0 platelet count 211 THOUSAND/UL 10*3/mm3 342-514 9155/07/24 mean platelet volume 8.5 fL 7.5-11.5 Blood type O Lab Report: ABO GROUP & RH TYPE, ANTIBOD Y SCREEN, RBCW/REFL I, CBC (IN ... - Lab chlamydia DNA probe NOT DETECTED NOT DETECTED Lab Report: ABO GROUP & RH TYPE, ANTIBOD Y SCREEN, RBCW/REFL I, CBC (IN ... - Microbiology Neisseria gonorrhoeae DNA probe NOT DETECTED NO T DETECTED Lab Report: Chlamydia/GC APTIMA/[id number] - Lab chlamydia DNA probe NOT DETECTED NOT DETECTED Lab Report: Chlamydia/GC APTIMA/57083 - Microbiology Neisseria gonorrhoeae DNA probe NOT DETECTED NO T DETECTED Lab Report: Drug Abuse Pnl 10-50/42384, RPR (DX) W/REFL TITER & CONFIR - Serology rapid plasma reagin antibody titer NON-REACTIVE NON-REACTIVE Lab Report: HEPATITIS B S AG W/, HIV-1/2 Agn/Mikaela/25011, RUBELLA IGG AB( ... - Chemistry hepatitis B surface antigen NON-REACTIVE NON-RE ACTIVE Lab Report: HEPATITIS B S AG W/, HIV-1/2 Agn/Mikaela/22714, RUBELLA IGG AB( ... - Serology rubella antibody, serum, IgG 1.06 Lab Report: Thyroid Stimulating Hormone (L), Wet Prep - Chemistry TSH 0.70 m[iU]/mL 0.36-3.74 Lab Report: [facility] [place] - Chemistry human chorionic gonadotropin , urine, qualitative (urine test) Negative Negative Office Visit: Initial OB Visit - Blood b ank antibody screen, serum negative Rh antigen pos blood type with RH factor O Office Visit: Initial OB Visit - Cook Chill Technician ry Neisseria gonorrhoeae, genital culture negative protein, [...] N Encounters Code Encounter Date Provider Facility CPT-72725 Level 3 Est. 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
--- OUTSIDE RECORDS SUMMARY | 2020-01-05 00:05 | XMS REPORT | Clinical Summary ---
Author Author Admin, Giuliana Flores Organization [facility] Address Unknown Phone Unavailable Allergies, Adverse Reactions, Alerts Allergy Name Reaction Description Start Date Severity Status Pr ovider No Known Allergies Amanda R obb RMA Conditions or Problems Problem Name Problem Code Onset Date Status Entry Date Provider Comment Standard Description Annotate Supervision of other normal V22.1 Resolved Cintia Pagan CORPORATE TREASURY ANALYST Supervision of other normal Supervision of other normal V22.1 Active Dionne Stewart MD Supervision of other normal care, delayed V23.7 Resolved Cintia flores APRN Supervision of high-risk : insufficient care Drug abuse, hx of V15.89 Active Dionne Stewart MD Other specified personal history presenting hazards to health Tobacco abuse, gestational 305.1 Active Nilda Stewart MD Tobacco use disorder NEED FOR PROPHYLACTIC VACCINATION WITH ULGQBTD-UIWAY-F UBELLA (MMR) VACCINE V06.4 Resolved Cintia Pagan APRN Need for prophylactic vaccination with julnzsn-gppja-nqdtpkb [MMR] vaccine Contraceptive management V25.9 Resolved Taiwo Stewart MD Encounter for unspecified contraceptive management follow-up, routine V24.2 Resolved 12/31 Dionne Stewart MD Routine follow-up Vaginal discharge 623.5 Resolved Dionne Flores D Leukorrhea, not specified as infective Genital herpes 054.10 Active Dionne Stewart MD Genital herpes, unspecified care, delayed ICD-V23.7 Inactive Kristin taylor Latasha CORPORATE TREASURY ANALYST NEED FOR PROPHYLACTIC VACCINATION WITH IKMZSII-CNJKZ-S UBELLA (MMR) VACCINE ICD-V06.4 Inactive Cintia Latasha CORPORATE TREASURY ANALYST Contraceptive management ICD-V25.9 Inactive Dionne Stewart MD follow-up, routine ICD-V24.2 Inacti ve Dionne Stewart MD Vaginal discharge ICD-623.5 Inactive Dionne spencer MD Medication List Medication Instructions Start Date Stop Date Generic Name NDC Status Provider Patient Instruction FLAGYL 500 MG ORAL TABLET 1 tablet PO BID for 7 days METRONIDAZOLE 93196986360 Active Billie Active TYLENOL PM EXTRA STRENGTH 500-25 MG ORAL TABLET PRN 12/31 DIPHENHYDRAMINE-APAP (SLEEP) 75241497488 Active Dionne Stewart MD Active EQL FORMULA 28-0.8 MG ORAL TABLET 1 tablet daily 1 VIT-FE FUMARATE-FA 53747815370 Active Dionne Stewart MD Activ e CONCEPT DHA 53.5-38-1 MG ORAL CAPSULE one tab PO daily NETVAM-YAAZO-EKYC-FA-OMEGA 3 81640398497 No Longer Active Dionne Stewart MD Active CYCLOBENZAPRINE HCL 10 MG ORAL TABLET 1 tablet by mout h three times daily as needed for muscle spasm/pain CYCLOBENZAPRINE HCL 68528715624 No Longer Active Dionne Stewart MD Active TRI-SPRINTEC 0.18/0.215/0.25 MG-35 MCG ORAL TABLET 1 po qd a s directed NORGESTIM-ETH ESTRAD TRIPHASIC 46333751174 N o Longer Active Dionne Stewart MD Active FLAGYL 250 MG ORAL TABLET One tablet three times a day METRONIDAZOLE 04307816981 No Longer Active Cintia Yokum CORPORATE TREASURY ANALYST Active [facility] 28-0.8 MG ORAL TABLET 04/10 VIT-FE FUMARATE-FA 04072636243 No Longer Active Dionne Stewart MD Active [facility] 28-0.8 MG ORAL TABLET 04/10 [facility] 28-0.8 MG ORAL TABLET VIT-FE FUMARATE-FA Inactive TRI-SPRINTEC 0.18/0.215/0.25 MG-35 MCG ORAL TABLET 1 po qd a s directed TRI-SPRINTEC 0.18/0.215/0.25 MG-35 MCG ORAL TABL ET 862915 NORGESTIM-ETH ESTRAD TRIPHASIC Inactive CYCLOBENZAPRINE HCL 10 MG ORAL TABLET 1 tablet by mout h three times daily as needed for muscle spasm/pain CYCLOBENZAP RINE HCL 10 MG ORAL TABLET 358399 CYCLOBENZAPRINE HCL Inactive CONCEPT DHA 53.5-38-1 MG ORAL CAPSULE one tab PO daily CONCEPT DHA 53.5-38-1 MG ORAL CAPSULE XOPDBU-DRKVQ-GHGW-FA-O BILLIE 3 Inactive FLAGYL 250 MG ORAL TABLET One tablet three times a day FLAGYL 250 MG ORAL TABLET 494918 METRONIDAZOLE Inactive Immunizations Vaccine Administration Date Value Standard Koko cription hepatitis B vaccine series no hepat itis B vaccine, unspecified formulation Diagnostic Results Date Name Value Unit Range [...] 11 .0-15.0 platelet count 226 THOUSAND/UL 10*3/mm3 566-908 0849/05/11 mean platelet volume 10.3 fL 7.5-12.5 Lab [...] Hormone (L), UADIP W/MICRO, AUTO - Chemistry RBC, urine, dipstick Negative Negative TSH 0.87 m[iU]/mL 0.36-3.74 protein, total urine random Negative mg/dL Negative Lab Report: Thyroid Stimulating Hormone (L), UADIP W/MICRO, AUTO - Urinalysis glucose, urine, semiquantitative Negative Neg ative ketones, urine, by test strip Negative Negati ve bilirubin, urine Negative Negative urine color Yellow Colorless;Lightyellow;St raw;Yellow appearance, urine Clear Clear specific gravity, urine 1.020 1.000-1.030 pH, urine, semiquantitative 8.5 5.0-8.5 urobilinogen, urine, semiquantitative (dipstick) 0.2 E .U./dL Normal leukocyte esterase, urine, by dipstick Negative Negative nitrite, urine, semiquantitative Negative Neg ative urate crystals, amorphous, urine, semiquantitative Few None seen Encounters Code Encounter Date Provider Facility CPT-04820 Level 3 Est. 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 Cintia Al [facility] [facility] [place] Procedures Code Procedure Name Date Entry Date Standard Desc ription CPT-18943 Spec Collection and Handling Fee 10:11:50 C DT CPT-20272 Visit 10:11:49 CDT CPT-J1050 Depo Provera 150 mg (Medroxyprogesterone) 08/30 16:06:30 STEAM TRAIN DRIVER CPT-53410 Abx/Therapy Injection 16:06:30 STEAM TRAIN DRIVER CPT-J1050 Depo Provera 150 mg (Medroxyprogesterone) 08/30 15:39:17 STEAM TRAIN DRIVER CPT-81682 Visit 15:01:38 CDT CPT-69354 Sono OB comp > 14 weeks 16:05:04 CDT 03/18 CPT-72690 Spec Collection and Handling Fee 10:45:40 C DT CPT-60620 Visit 10:45:40 CDT
--- OUTSIDE RECORDS SUMMARY | 2020-01-05 00:05 | XMS REPORT | Clinical Summary ---
Author Author Admin, Giuliana Flores Organization [facility] Address Unknown Phone Unavailable Allergies, Adverse Reactions, [...] use disorder NEED FOR PROPHYLACTIC VACCINATION WITH GEBHUJI-YBYFQ-W UBELLA (MMR) VACCINE V06.4 Resolved Cintia Pagan APRN Need for prophylactic vaccination with yuejnoi-kegqb-bdnccaw [MMR] vaccine Contraceptive management V25.9 Resolved Taiwo [...] mother care, delayed ICD-V23.7 Inactive Kristin Pagan TOOL OR DIE DRAWING CHECKER NEED FOR PROPHYLACTIC VACCINATION WITH POHWWQD-BMQDN-I UBELLA (MMR) VACCINE ICD-V06.4 Inactive Cintia Alkemal TOOL OR DIE DRAWING CHECKER Contraceptive management ICD-V25.9 Inactive Dionne Stewart MD follow-up, routine ICD-V24.2 Inacti ve Dionne Stewart MD Vaginal discharge ICD-623.5 Inactive Dionne spencer MD Medication List Medication Instructions Start Date Stop Date Generic Name NDC Status Provider Patient Instruction CONCEPT DHA 53.5-38-1 MG ORAL CAPSULE one tab PO daily OLQYWX-QLVCI-FQZE-FA-OMEGA 3 92112266140 Active Dionne Stewart MD Active FLAGYL 500 MG ORAL TABLET 1 tablet PO BID for 7 days 2 METRONIDAZOLE 33928629070 No Longer Active Dionne Stewart MD Active TYLENOL PM EXTRA STRENGTH 500-25 MG ORAL TABLET PRN 12/31 DIPHENHYDRAMINE-APAP (SLEEP) 76794990093 Active Dionne Stewart MD Active EQL FORMULA 28-0.8 MG ORAL TABLET 1 tablet daily 1 VIT-FE FUMARATE-FA 34772933564 No Longer Active Dionne Stewart MD A ctive CONCEPT DHA 53.5-38-1 MG ORAL CAPSULE one tab PO daily ZKPLFF-MKFNU-XBXC-FA-OMEGA 3 17332686692 No Longer Active Dionne Stewart MD Active CYCLOBENZAPRINE HCL 10 MG ORAL TABLET 1 tablet by mout h three times daily as needed for muscle spasm/pain CYCLOBENZAPRINE HCL 00870249513 No Longer Active Dionne Stewart MD Active TRI-SPRINTEC 0.18/0.215/0.25 MG-35 MCG ORAL TABLET 1 po qd a s directed NORGESTIM-ETH ESTRAD TRIPHASIC 43633241603 N o Longer Active Dionne Stewart MD Active FLAGYL 250 MG ORAL TABLET One tablet three times a day METRONIDAZOLE 14761280120 No Longer Active Cintia Pagan APRN Active [facility] 28-0.8 MG ORAL TABLET 04/10 VIT-FE FUMARATE-FA 79053713280 No Longer Active Dionne Stewart MD Active [facility] 28-0.8 MG ORAL TABLET 04/10 [facility] 28-0.8 MG ORAL TABLET VIT-FE FUMARATE-FA Inactive TRI-SPRINTEC 0.18/0.215/0.25 MG-35 MCG ORAL TABLET 1 po qd a s directed TRI-SPRINTEC 0.18/0.215/0.25 MG-35 MCG ORAL TABL ET 763644 NORGESTIM-ETH ESTRAD TRIPHASIC Inactive CYCLOBENZAPRINE HCL 10 MG ORAL TABLET 1 tablet by mout h three times daily as needed for muscle spasm/pain CYCLOBENZAP RINE HCL 10 MG ORAL TABLET 550804 CYCLOBENZAPRINE HCL Inactive CONCEPT DHA 53.5-38-1 MG ORAL CAPSULE one tab PO daily CONCEPT DHA 53.5-38-1 MG ORAL CAPSULE QGKFKK-PMOLT-HLVB-FA-O BILLIE 3 Inactive FLAGYL 500 MG ORAL TABLET 1 tablet PO BID for 7 days 2 FLAGYL 500 MG ORAL TABLET 177745 METRONIDAZOLE Inactive FLAGYL 250 MG ORAL TABLET One tablet three times a day FLAGYL 250 MG ORAL TABLET 545483 METRONIDAZOLE Inactive Immunizations Vaccine Administration Date Value [...] d blood pressure, diastolic 66 mm[Hg] BP imramontes blood pressure, systolic 131 mm[Hg] BP sys [...] 11 .0-15.0 platelet count 226 THOUSAND/UL 10*3/mm3 290-432 5645/05/11 mean platelet volume 10.3 fL 7.5-12.5 Lab [...] N Encounters Code Encounter Date Provider Facility CPT-34328 Level 3 Est. 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 EQUIPMENT REMOVER Cintia sommer [facility] Procedures Code Procedure Name Date Entry Date Standard Desc ription CPT-62774 Visit 12:16:56 CDT CPT-49676N Sono OB comp <14 weeks ([place] Only) - X RAY USE ONLY 12:09:02 CDT CPT-69434 Spec Collection and Handling Fee 10:11:50 C DT CPT-75859 Visit 10:11:49 CDT CPT-J1050 Depo Provera 150 mg (Medroxyprogesterone) 08/30 16:06:30 IRRIGATION EQUIPMENT REMOVER CPT-95469 Abx/Therapy Injection 16:06:30 IRRIGATION EQUIPMENT REMOVER CPT-J1050 Depo Provera 150 mg (Medroxyprogesterone) 08/30 15:39:17 IRRIGATION EQUIPMENT REMOVER CPT-72905 Visit 15:01:38 CDT CPT-33786 Sono OB comp > 14 weeks 16:05:04 CDT 03/18 CPT-97212 Spec Collection and Handling Fee 10:45:40 C DT CPT-17703 Visit 10:45:40 CDT
--- OUTSIDE RECORDS SUMMARY | 2020-01-05 00:05 | XMS REPORT | Clinical Summary ---
Author Author Admin, Giuliana Vasquez Organization [employer] Address Unknown Phone Unavailable Allergies, Adverse Reactions, [...] use disorder NEED FOR PROPHYLACTIC VACCINATION WITH CBFIWNZ-HAXDM-F UBELLA (MMR) VACCINE V06.4 Active Dionne Stewart MD Need for prophylactic vaccination with ysdpgyo-bqkar-vomcwxp [MMR] vaccine Medication List Medication Instructions Start Date Stop Date Generic Name NDC Status Provider Patient Instruction [facility] 28-0.8 MG ORAL TABS PRE VIT-FE FUMARATE-FA 18653091516 Active Dionne Stewart MD Active Immunizations Vaccine [...] 11 .0-15.0 platelet count 211 THOUSAND/UL 10*3/mm3 988-459 0445/07/24 mean platelet volume 8.5 fL 7.5-11.5 Blood [...] T DETECTED Lab Report: Drug Abuse Pnl 1050/18877, RPR (DX) W/REFL TITER & CONFIR - Serology rapid plasma reagin antibody titer NON-REACTIVE NON-REACTIVE Lab Report: HEPATITIS B S AG W/, HIV-1/2 Agn/Mikaela/04335, RUBELLA IGG AB( ... - Chemistry hepatitis B surface antigen NON-REACTIVE NON-RE ACTIVE Lab Report: HEPATITIS B S AG W/, HIV-1/2 Agn/Mikaela/93261, RUBELLA IGG AB( ... - Serology rubella antibody, serum, IgG 1.06 Lab Report: Thyroid Stimulating Hormone (L), Wet Prep - Chemistry TSH 0.70 m[iU]/mL 0.36-3.74 Office Visit: Initial OB Visit - Blood b ank antibody screen, serum negative Rh antigen pos blood type with RH factor O Office Visit: Initial OB Visit - [place] Aide ry Neisseria gonorrhoeae, genital culture negative protein, [...] Name Date Entry Date Standard Desc ription CPT-01484 Sono OB comp > 14 weeks 16:05:04 CDT 03/18 CPT-78112 Spec Collection and Handling Fee 10:45:40 C DT CPT-38898 Visit 10:45:40 CDT
--- OUTSIDE RECORDS SUMMARY | 2020-01-05 00:05 | XMS REPORT | Clinical Summary ---
Author Author Admin, Giuliana Flores Organization [facility] [employer] Address Unknown Phone Unavailable Allergies, Adverse Reactions, [...] use disorder NEED FOR PROPHYLACTIC VACCINATION WITH TOXUPCJ-MEMGW-L UBELLA (MMR) VACCINE V06.4 Resolved Cintia Pagan APRN Need for prophylactic vaccination with jxqvxka-jreqs-ljprqtg [MMR] vaccine Contraceptive management V25.9 Resolved Taiwo Stewart MD Encounter for unspecified contraceptive management follow-up, routine V24.2 Resolved 12/31 Dionne Stewart MD Routine follow-up Vaginal discharge 623.5 Resolved Dionne Flores D Leukorrhea, not specified as infective Genital herpes 054.10 Active Dionne Stewart MD Genital herpes, unspecified 9 weeks gestation of V28.9 Active Xiao Brasher Encounter for unspecified screening of davee r care, delayed ICD-V23.7 Inactive Kristin Pagan APPLICATION SECURITY CONSULTANT NEED FOR PROPHYLACTIC VACCINATION WITH UGGAURH-QMZWT-Y UBELLA (MMR) VACCINE ICD-V06.4 Inactive Cintia Pagan APPLICATION SECURITY CONSULTANT Contraceptive management ICD-V25.9 Inactive Dionne Stewart MD follow-up, routine ICD-V24.2 Inacti ve Dionne Stewart MD Vaginal discharge ICD-623.5 Inactive Dionne spencer MD Medication List Medication Instructions Start Date Stop Date Generic Name NDC Status Provider Patient Instruction FLAGYL 500 MG ORAL TABLET 1 tablet PO BID for 7 days METRONIDAZOLE 78827664423 Active Billie Active TYLENOL PM EXTRA STRENGTH 500-25 MG ORAL TABLET PRN 12/31 DIPHENHYDRAMINE-APAP (SLEEP) 36651727625 Active Dionne Stewart MD Active EQL FORMULA 28-0.8 MG ORAL TABLET 1 tablet daily 1 VIT-FE FUMARATE-FA 37744644147 Active Dionne Stewart MD Activ e CONCEPT DHA 53.5-38-1 MG ORAL CAPSULE one tab PO daily YPFTRF-PETFR-PVAK-FA-OMEGA 3 47307138968 No Longer Active Dionne Stewart MD Active CYCLOBENZAPRINE HCL 10 MG ORAL TABLET 1 tablet by mout h three times daily as needed for muscle spasm/pain CYCLOBENZAPRINE HCL 82219561442 No Longer Active Dionne Stewart MD Active TRI-SPRINTEC 0.18/0.215/0.25 MG-35 MCG ORAL TABLET 1 po qd a s directed NORGESTIM-ETH ESTRAD TRIPHASIC 73291305478 N o Longer Active Dionne Stewart MD Active FLAGYL 250 MG ORAL TABLET One tablet three times a day METRONIDAZOLE 47355507855 No Longer Active Cintia Pagan APRN Active [facility] 28-0.8 MG ORAL TABLET 04/10 VIT-FE FUMARATE-FA 43329312936 No Longer Active Dionne Stewart MD Active [facility] 28-0.8 MG ORAL TABLET 04/10 [facility] 28-0.8 MG ORAL TABLET VIT-FE FUMARATE-FA Inactive TRI-SPRINTEC 0.18/0.215/0.25 MG-35 MCG ORAL TABLET 1 po qd a s directed TRI-SPRINTEC 0.18/0.215/0.25 MG-35 MCG ORAL TABL ET 364553 NORGESTIM-ETH ESTRAD TRIPHASIC Inactive CYCLOBENZAPRINE HCL 10 MG ORAL TABLET 1 tablet by mout h three times daily as needed for muscle spasm/pain CYCLOBENZAP RINE HCL 10 MG ORAL TABLET 707912 CYCLOBENZAPRINE HCL Inactive CONCEPT DHA 53.5-38-1 MG ORAL CAPSULE one tab PO daily CONCEPT DHA 53.5-38-1 MG ORAL CAPSULE IQBYZD-ZCGOU-CSKT-FA-O BILLIE 3 Inactive FLAGYL 250 MG ORAL TABLET One tablet three times a day FLAGYL 250 MG ORAL TABLET 651510 METRONIDAZOLE Inactive Immunizations Vaccine Administration Date Value Standard Koko cription hepatitis B vaccine series yes hepat itis B vaccine, unspecified formulation hepatitis B vaccine series no hepat itis B vaccine, unspecified formulation Vital Signs Date Name Value Unit Range Description blood pressure, diastolic 52 mm[Hg] BP miramontes [...] 11 .0-15.0 platelet count 226 THOUSAND/UL 10*3/mm3 028-123 8162/05/11 mean platelet volume 10.3 fL 7.5-12.5 Lab [...] pH, urine, semiquantitative 8.5 5.0-8.5 Office Visit: Initial OB Visit - Genetic s/fertility test, date 12/10/2017 Office Visit: Initial OB Visit - Microbi ology Herpes Simplex Virus Genital yes Office Visit: Initial OB Visit - Urinaly sis protein, urine, semiquantitative (dipstick) UC glucose, urine, semiquantitative UC nitrite, urine, semiquantitative UC Encounters Code Encounter Date Provider Facility CPT-37264 Level 3 Est. 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 Cintia sommer APPLICATION SECURITY CONSULTANT [facility] Procedures Code Procedure Name Date Entry Date Standard Desc ription CPT-39309H Sono OB comp <14 weeks ([place] Only) - X RAY USE ONLY 12:09:02 CDT CPT-53649 Spec Collection and Handling Fee 10:11:50 C DT CPT-97320 Visit 10:11:49 CDT CPT-J1050 Depo Provera 150 mg (Medroxyprogesterone) 08/30 16:06:30 OIL SPRAYING MACHINE OPERATOR CPT-21343 Abx/Therapy Injection 16:06:30 OIL SPRAYING MACHINE OPERATOR CPT-J1050 Depo Provera 150 mg (Medroxyprogesterone) 08/30 15:39:17 OIL SPRAYING MACHINE OPERATOR CPT-13066 Visit 15:01:38 CDT CPT-28507 Sono OB comp > 14 weeks 16:05:04 CDT 03/18 CPT-35987 Spec Collection and Handling Fee 10:45:40 C DT CPT-21120 Visit 10:45:40 CDT
--- OUTSIDE RECORDS SUMMARY | 2020-01-05 00:06 | XMS REPORT | Clinical Summary ---
Author Author Admin, Giuliana Flores Organization [facility] Address Unknown Phone Unavailable Allergies, Adverse Reactions, Alerts Allergy Name Reaction Description Start Date Severity Status Pr ovider No Known Allergies Estela Clifton LPN Conditions or Problems Problem Name Problem Code Onset Date Status Entry Date Provider Comment Standard Description Annotate Supervision of other normal V22.1 Resolved Cintia Pagan HEAVY EQUIPMENT PLUMBING SUPERVISOR Supervision of other normal Supervision of other normal V22.1 Active Dionne Stewart MD Supervision of other normal care, delayed V23.7 Resolved Cintia flores APRN Supervision of high-risk : insufficient care Drug abuse, hx of V15.89 Active Dionne Stewart MD Other specified personal history presenting hazards to health Tobacco abuse, gestational 305.1 Active Nilda Stewart MD Tobacco use disorder NEED FOR PROPHYLACTIC VACCINATION WITH DBBZIMJ-FWRRJ-V UBELLA (MMR) VACCINE V06.4 Resolved Cintia Pagan APRN Need for prophylactic vaccination with bvkvpgr-rbmxv-yogtvta [MMR] vaccine Contraceptive management V25.9 Resolved Taiwo [...] r care, delayed ICD-V23.7 Inactive Kristin Pagan HEAVY EQUIPMENT PLUMBING SUPERVISOR NEED FOR PROPHYLACTIC VACCINATION WITH EIYDAWR-UFTLM-O UBELLA (MMR) VACCINE ICD-V06.4 Inactive Cintia Pagan HEAVY EQUIPMENT PLUMBING SUPERVISOR Contraceptive management ICD-V25.9 Inactive Dionne Stewart MD follow-up, routine ICD-V24.2 Inacti ve Dionne Stewart MD Vaginal discharge ICD-623.5 Inactive Dionne spencer MD Medication List Medication Instructions Start Date Stop Date Generic Name NDC Status Provider Patient Instruction CONCEPT DHA 53.5-38-1 MG ORAL CAPSULE one tab PO daily WGJMHE-HBTTO-GLFQ-FA-OMEGA 3 61796883464 Active Dionne Stewart MD Active FLAGYL 500 MG ORAL TABLET 1 tablet PO BID for 7 days 2 METRONIDAZOLE 09881121419 No Longer Active Dionne tSewart MD Active TYLENOL PM EXTRA STRENGTH 500-25 MG ORAL TABLET PRN 12/31 DIPHENHYDRAMINE-APAP (SLEEP) 11077632935 Active Dionne Stewart MD Active EQL FORMULA 28-0.8 MG ORAL TABLET 1 tablet daily 1 VIT-FE FUMARATE-FA 57124413660 No Longer Active Dionne Stewart MD A ctive CONCEPT DHA 53.5-38-1 MG ORAL CAPSULE one tab PO daily VOPGMD-AONXD-PBVL-FA-OMEGA 3 27255801865 No Longer Active Dionne Stewart MD Active CYCLOBENZAPRINE HCL 10 MG ORAL TABLET 1 tablet by mout h three times daily as needed for muscle spasm/pain CYCLOBENZAPRINE HCL 98744069307 No Longer Active Dionne Stewart MD Active TRI-SPRINTEC 0.18/0.215/0.25 MG-35 MCG ORAL TABLET 1 po qd a s directed NORGESTIM-ETH ESTRAD TRIPHASIC 34207228496 N o Longer Active Dionne Stewart MD Active FLAGYL 250 MG ORAL TABLET One tablet three times a day METRONIDAZOLE 96681172834 No Longer Active Cintia Pagan HEAVY EQUIPMENT PLUMBING SUPERVISOR Active [facility] 28-0.8 MG ORAL TABLET 04/10 VIT-FE FUMARATE-FA 10275157343 No Longer Active Dionne Stewart MD Active [facility]S 28-0.8 MG ORAL TABLET 04/10 [facility] 28-0.8 MG ORAL TABLET VIT-FE FUMARATE-FA Inactive TRI-SPRINTEC 0.18/0.215/0.25 MG-35 MCG ORAL TABLET 1 po qd a s directed TRI-SPRINTEC 0.18/0.215/0.25 MG-35 MCG ORAL TABL ET 040301 NORGESTIM-ETH ESTRAD TRIPHASIC Inactive CYCLOBENZAPRINE HCL 10 MG ORAL TABLET 1 tablet by mout h three times daily as needed for muscle spasm/pain CYCLOBENZAP RINE HCL 10 MG ORAL TABLET 718172 CYCLOBENZAPRINE HCL Inactive CONCEPT DHA 53.5-38-1 MG ORAL CAPSULE one tab PO daily CONCEPT DHA 53.5-38-1 MG ORAL CAPSULE WXOTGZ-BKOJC-OEWY-FA-O BILLIE 3 Inactive FLAGYL 500 MG ORAL TABLET 1 tablet PO BID for 7 days 2 FLAGYL 500 MG ORAL TABLET 798293 METRONIDAZOLE Inactive FLAGYL 250 MG ORAL TABLET One tablet three times a day FLAGYL 250 MG ORAL TABLET 262076 METRONIDAZOLE Inactive Immunizations Vaccine Administration Date Value [...] 11 .0-15.0 platelet count 226 THOUSAND/UL 10*3/mm3 238-774 0737/05/11 mean platelet volume 10.3 fL 7.5-12.5 Lab [...] N Encounters Code Encounter Date Provider Facility CPT-66980 Level 3 Est. Patient 17:31:05 KENNEL OPERATOR Cintia sommer [facility] Procedures Code Procedure Name Date Entry Date Standard Desc ription CPT-09765H Sono OB comp <14 weeks ([place] Only) - X RAY USE ONLY 12:09:02 CDT CPT-48207 Spec Collection and Handling Fee 10:11:50 C DT CPT-69633 Visit 10:11:49 CDT CPT-J1050 Depo Provera 150 mg (Medroxyprogesterone) 08/30 16:06:30 KENNEL OPERATOR CPT-70052 Abx/Therapy Injection 16:06:30 KENNEL OPERATOR CPT-J1050 Depo Provera 150 mg (Medroxyprogesterone) 08/30 15:39:17 KENNEL OPERATOR CPT-99459 Visit 15:01:38 CDT CPT-90484 Sono OB comp > 14 weeks 16:05:04 CDT 03/18 CPT-56385 Spec Collection and Handling Fee 10:45:40 C DT CPT-76845 Visit 10:45:40 CDT
--- OUTSIDE RECORDS SUMMARY | 2020-01-05 00:06 | XMS REPORT | Clinical Summary ---
Author Author Admin, Giuliana Flores Organization [facility] Address Unknown Phone Unavailable Allergies, Adverse Reactions, Alerts Allergy Name Reaction Description Start Date Severity Status Pr ovider No Known Allergies Estela Clifton LPN Conditions or Problems Problem Name Problem Code Onset Date Status Entry Date Provider Comment Standard Description Annotate Supervision of other normal V22.1 Resolved Cintia Pagan STAND UP FORKLIFT OPERATOR Supervision of other normal Supervision of other normal V22.1 Active Dionne Stewart MD Supervision of other normal care, delayed V23.7 Resolved Cintia flores APRN Supervision of high-risk : insufficient care Drug abuse, hx of V15.89 Active Dionne Stewart MD Other specified personal history presenting hazards to health Tobacco abuse, gestational 305.1 Active Nilda Stewart MD Tobacco use disorder NEED FOR PROPHYLACTIC VACCINATION WITH APJFWIM-QKGIZ-I UBELLA (MMR) VACCINE V06.4 Resolved Cintia Pagan APRN Need for prophylactic vaccination with kanvhxi-ficgj-jtnpzsu [MMR] vaccine Contraceptive management V25.9 Resolved Taiwo [...] r care, delayed ICD-V23.7 Inactive Kristin Pagan STAND UP FORKLIFT OPERATOR NEED FOR PROPHYLACTIC VACCINATION WITH EHHIKTL-KOPHA-R UBELLA (MMR) VACCINE ICD-V06.4 Inactive Cintia Pagan STAND UP FORKLIFT OPERATOR Contraceptive management ICD-V25.9 Inactive Dionne Stewart MD follow-up, routine ICD-V24.2 Inacti ve Dionne Stewart MD Vaginal discharge ICD-623.5 Inactive Dionne spencer MD Medication List Medication Instructions Start Date Stop Date Generic Name NDC Status Provider Patient Instruction CONCEPT DHA 53.5-38-1 MG ORAL CAPSULE one tab PO daily NNTKNP-FNDGS-DIOU-FA-OMEGA 3 17027095215 Active Dionne Stewart MD Active FLAGYL 500 MG ORAL TABLET 1 tablet PO BID for 7 days 2 METRONIDAZOLE 20188360998 No Longer Active Dionne Stewart MD Active TYLENOL PM EXTRA STRENGTH 500-25 MG ORAL TABLET PRN 12/31 DIPHENHYDRAMINE-APAP (SLEEP) 25906978831 Active Dionne Stewart MD Active EQL FORMULA 28-0.8 MG ORAL TABLET 1 tablet daily 1 VIT-FE FUMARATE-FA 01356551346 No Longer Active Dionne Stewart MD A ctive CONCEPT DHA 53.5-38-1 MG ORAL CAPSULE one tab PO daily NSGIWO-FPVFT-MWTR-FA-OMEGA 3 40240678892 No Longer Active Dionne Stewart MD Active CYCLOBENZAPRINE HCL 10 MG ORAL TABLET 1 tablet by mout h three times daily as needed for muscle spasm/pain CYCLOBENZAPRINE HCL 63148162107 No Longer Active Dionne Stewart MD Active TRI-SPRINTEC 0.18/0.215/0.25 MG-35 MCG ORAL TABLET 1 po qd a s directed NORGESTIM-ETH ESTRAD TRIPHASIC 43314882090 N o Longer Active Dionne Stewart MD Active FLAGYL 250 MG ORAL TABLET One tablet three times a day METRONIDAZOLE 85196125778 No Longer Active Cintia Pagan STAND UP FORKLIFT OPERATOR Active [facility] 28-0.8 MG ORAL TABLET 04/10 VIT-FE FUMARATE-FA 49400094674 No Longer Active Dionne Stewart MD Active [facility] 28-0.8 MG ORAL TABLET 04/10 [facility] 28-0.8 MG ORAL TABLET VIT-FE FUMARATE-FA Inactive TRI-SPRINTEC 0.18/0.215/0.25 MG-35 MCG ORAL TABLET 1 po qd a s directed TRI-SPRINTEC 0.18/0.215/0.25 MG-35 MCG ORAL TABL ET 187315 NORGESTIM-ETH ESTRAD TRIPHASIC Inactive CYCLOBENZAPRINE HCL 10 MG ORAL TABLET 1 tablet by mout h three times daily as needed for muscle spasm/pain CYCLOBENZAP RINE HCL 10 MG ORAL TABLET 649769 CYCLOBENZAPRINE HCL Inactive CONCEPT DHA 53.5-38-1 MG ORAL CAPSULE one tab PO daily CONCEPT DHA 53.5-38-1 MG ORAL CAPSULE UPLYDW-AWIAY-VEWP-FA-O BILLIE 3 Inactive FLAGYL 500 MG ORAL TABLET 1 tablet PO BID for 7 days 2 FLAGYL 500 MG ORAL TABLET 762220 METRONIDAZOLE Inactive FLAGYL 250 MG ORAL TABLET One tablet three times a day FLAGYL 250 MG ORAL TABLET 902517 METRONIDAZOLE Inactive Immunizations Vaccine Administration Date Value [...] 11 .0-15.0 platelet count 226 THOUSAND/UL 10*3/mm3 646-182 3159/05/11 mean platelet volume 10.3 fL 7.5-12.5 Lab [...] N Encounters Code Encounter Date Provider Facility CPT-07305 Level 3 Est. Patient 17:31:05 ENTRY EXAMINER Cintia sommer [facility] Procedures Code Procedure Name Date Entry Date Standard Desc ription CPT-01216I Sono OB comp <14 weeks ([place] Only) - X RAY USE ONLY 12:09:02 CDT CPT-02788 Spec Collection and Handling Fee 10:11:50 C DT CPT-61764 Visit 10:11:49 CDT CPT-J1050 Depo Provera 150 mg (Medroxyprogesterone) 08/30 16:06:30 ENTRY EXAMINER CPT-95549 Abx/Therapy Injection 16:06:30 ENTRY EXAMINER CPT-J1050 Depo Provera 150 mg (Medroxyprogesterone) 08/30 15:39:17 ENTRY EXAMINER CPT-96476 Visit 15:01:38 CDT CPT-61790 Sono OB comp > 14 weeks 16:05:04 CDT 03/18 CPT-72660 Spec Collection and Handling Fee 10:45:40 C DT CPT-22303 Visit 10:45:40 CDT
--- OUTSIDE RECORDS SUMMARY | 2020-01-05 00:06 | XMS REPORT | Clinical Summary ---
Author Author Admin, Giuliana Flores Organization [facility] Address Unknown Phone Unavailable Allergies, Adverse Reactions, [...] use disorder NEED FOR PROPHYLACTIC VACCINATION WITH RLKHRNY-ITZIT-E UBELLA (MMR) VACCINE V06.4 Resolved Cintia Pagan APRN Need for prophylactic vaccination with hvfxdui-dqmsq-cokxyfl [MMR] vaccine Contraceptive management V25.9 Active Cintia sommer FARM INSTRUCTOR Encounter for unspecified contraceptive management follow-up, routine V24.2 Active 09/08 Cintia Pagan APRN Routine follow-up Vaginal discharge 623.5 Active Cintia Pagan APRN Leukorrhea, not specified as infective Supervision of other normal ICD-V22.1 7 Inactive Cintia Pagan APRN care, delayed ICD-V23.7 Inactive Kristin Pagan FARM INSTRUCTOR NEED FOR PROPHYLACTIC VACCINATION WITH FNTTTJD-BIUCL-Q UBELLA (MMR) VACCINE ICD-V06.4 Inactive Cintia Pagan APRN Medication List Medication Instructions Start Date Stop Date Generic Name NDC Status Provider Patient Instruction TRI-SPRINTEC 0.18/0.215/0.25 MG-35 MCG TABS 1 po qd as directed 201 01/23/31 NORGESTIM-ETH ESTRAD TRIPHASIC 72138314025 Active Cintia Pagan APRN Active FLAGYL 250 MG TAB One tablet three times a day METRONIDAZOLE 31574946033 No Longer Active Cintia Pagan APRN Active CYCLOBENZAPRINE HCL 10 MG TABS 1 tablet by mouth three times daily as needed for muscle spasm/pain CYCLOBENZAPRINE HCL 11338498413 Active Cintia Pagan APRN Active CONCEPT DHA 53.5-38-1 MG ORAL CAPS one tab PO daily HXGWCF-MHDMR-MFUT-FA-OMEGA 3 66218279197 Active Dionne Stewart MD Active [facility] 28-0.8 MG ORAL TABS VIT-FE FUMARATE-FA 72766328694 No Longer Active Dionne Stewart MD Active [facility] 28-0.8 MG ORAL TABS [facility] 28-0.8 MG ORAL TABS VIT-FE FUMARATE-FA Inactive FLAGYL 250 MG TAB One tablet three times a day FLAGYL 250 MG TAB 181985 METRONIDAZOLE Inactive Immunizations Vaccine Administration Date Value [...] 11 .0-15.0 platelet count 211 THOUSAND/UL 10*3/mm3 449-929 1455/07/24 mean platelet volume 8.5 fL 7.5-11.5 Blood type O Lab Report: ABO GROUP & RH TYPE, ANTIBOD Y SCREEN, RBCW/REFL I, CBC (IN ... - Lab chlamydia DNA probe NOT DETECTED NOT DETECTED Lab Report: ABO GROUP & RH TYPE, ANTIBOD Y SCREEN, RBCW/REFL I, CBC (IN ... - Microbiology Neisseria gonorrhoeae DNA probe NOT DETECTED NO T DETECTED Lab Report: Chlamydia/GC APTIMA/31101 - Lab chlamydia DNA probe NOT DETECTED NOT DETECTED Lab Report: Chlamydia/GC APTIMA/61154 - Microbiology Neisseria gonorrhoeae DNA probe NOT DETECTED NO T DETECTED Lab Report: Drug Abuse Pnl 10-50/53764, RPR (DX) W/REFL TITER & CONFIR - Serology rapid plasma reagin antibody titer NON-REACTIVE NON-REACTIVE Lab Report: HEPATITIS B S AG W/, HIV-1/2 Agn/Mikaela/18046, RUBELLA IGG AB( ... - Chemistry hepatitis B surface antigen NON-REACTIVE NON-RE ACTIVE Lab Report: HEPATITIS B S AG W/, HIV-1/2 Agn/Mikaela/63555, RUBELLA IGG AB( ... - Serology rubella antibody, serum, IgG 1.06 Lab Report: Thyroid Stimulating Hormone (L), Wet Prep - Chemistry TSH 0.70 m[iU]/mL 0.36-3.74 Lab [place] [facility] [place] human chorionic gonadotropin , urine, qualitative (urine test) Negative Negative Office Visit: Initial OB Visit - Blood b ank antibody screen, serum negative Rh antigen pos blood type with RH factor O Office Visit: Initial OB Visit - Veneer Lathe Operator ry Neisseria gonorrhoeae, genital culture negative hepatitis B surface antigen negative protein, total urine random UC mg/dL Office Visit: Initial OB Visit - Genetic s/fertility test, date 01/23/2015 Office Visit: Initial OB Visit - Hematol ogy hemoglobin, blood 11.9 g/dL Office Visit: Initial OB Visit - Lab chlamydia DNA probe negative Office Visit: Initial OB Visit - Microbi ology urine culture (with units of CFunits/mL) negative {cfu}/ mL Herpes Simplex Virus Genital no Office Visit: Initial OB Visit - Serolog y rubella antibody, serum, titer non-immune VDRL, serum negative Office Visit: Initial OB Visit - Urinaly sis glucose, urine, semiquantitative UC nitrite, urine, semiquantitative UC Office Visit: OB Visit - Chemistry protein, total urine random N mg/dL Office Visit: OB Visit - Urinalysis glucose, urine, semiquantitative N nitrite, urine, semiquantitative N Encounters Code Encounter Date Provider Facility CPT-18518 Level 3 Est. Patient 17:31:05 WEATHER FORECASTER Cintia Al [facility] Procedures Code Procedure Name Date Entry Date Standard Desc ription CPT-J1050 Depo Provera 150 mg (Medroxyprogesterone) 08/30 16:06:30 WEATHER FORECASTER CPT-56475 Abx/Therapy Injection 16:06:30 WEATHER FORECASTER CPT-J1050 Depo Provera 150 mg (Medroxyprogesterone) 08/30 15:39:17 WEATHER FORECASTER CPT-93275 Visit 15:01:38 CDT CPT-74666 Sono OB comp > 14 weeks 16:05:04 CDT 03/18 CPT-94754 Spec Collection and Handling Fee 10:45:40 C DT CPT-49522 Visit 10:45:40 CDT
--- OUTSIDE RECORDS SUMMARY | 2020-01-05 00:06 | XMS REPORT | Clinical Summary ---
Author Author Admin, Giuliana Vasquez Organization [employer] Address Unknown Phone Unavailable Allergies, Adverse Reactions, [...] use disorder NEED FOR PROPHYLACTIC VACCINATION WITH PLJYLQL-MVBDX-T UBELLA (MMR) VACCINE V06.4 Active Dionne Stewart MD Need for prophylactic vaccination with cgzltjy-puquj-opcflkl [MMR] vaccine Contraceptive management V25.9 Active Cintia sommer APRN Encounter for unspecified contraceptive management Medication List Medication Instructions Start Date Stop Date Generic Name NDC Status Provider Patient Instruction FLAGYL 250 MG TAB One tablet three times a day METRONIDAZOLE 67285753331 Active Cintia Yokum VALUATION CONSULTANT Active CYCLOBENZAPRINE HCL 10 MG TABS 1 tablet by mouth three times daily as needed for muscle spasm/pain CYCLOBENZAPRINE HCL 51032913443 Active Cintia Pagan APRN Active CONCEPT DHA 53.5-38-1 MG ORAL CAPS one tab PO daily ULCIRP-JIQBF-PFDF-FA-OMEGA 3 07513118191 Active Dionne Stewart MD Active [facility] 28-0.8 MG ORAL TABS VIT-FE FUMARATE-FA 04988789106 No Longer Active Dionne Stewart MD Active [...] 11 .0-15.0 platelet count 211 THOUSAND/UL 10*3/mm3 757-031 1559/07/24 mean platelet volume 8.5 fL 7.5-11.5 Blood type O Lab Report: ABO GROUP & RH TYPE, ANTIBOD Y SCREEN, RBCW/REFL I, CBC (IN ... - Lab chlamydia DNA probe NOT DETECTED NOT DETECTED Lab Report: ABO GROUP & RH TYPE, ANTIBOD Y SCREEN, RBCW/REFL I, CBC (IN ... - Microbiology Neisseria gonorrhoeae DNA probe NOT DETECTED NO T DETECTED Lab Report: Chlamydia/GC APTIMA/75520 - Lab chlamydia DNA probe NOT DETECTED NOT DETECTED Lab Report: Chlamydia/GC APTIMA/89527 - Microbiology Neisseria gonorrhoeae DNA probe NOT DETECTED NO T DETECTED Lab Report: Drug Abuse Pnl 10-50/30339, RPR (DX) W/REFL TITER & CONFIR - Serology rapid plasma reagin antibody titer NON-REACTIVE NON-REACTIVE Lab Report: HEPATITIS B S AG W/, HIV-1/2 Agn/Mikaela/60101, RUBELLA IGG AB( ... - Chemistry hepatitis B surface antigen NON-REACTIVE NON-RE ACTIVE Lab Report: HEPATITIS B S AG W/, HIV-1/2 Agn/Mikaela/52566, RUBELLA IGG AB( ... - Serology rubella antibody, serum, IgG 1.06 Lab Report: Thyroid Stimulating Hormone (L), Wet Prep - Chemistry TSH 0.70 m[iU]/mL 0.36-3.74 Lab Report: [facility] - Chemistry human chorionic gonadotropin , urine, qualitative (urine test) Negative Negative Office Visit: Initial OB Visit - Blood b ank antibody screen, serum negative Rh antigen pos blood type with RH factor O Office Visit: Initial OB Visit - Anatomical Embalmer ry Neisseria gonorrhoeae, genital culture negative protein, [...] Depo Provera 150 mg (Medroxyprogesterone) 08/30 16:06:30 CAROUSEL OPERATOR CPT-69589 Abx/Therapy Injection 16:06:30 CAROUSEL OPERATOR CPT-J1050 Depo Provera 150 mg (Medroxyprogesterone) 08/30 15:39:17 CAROUSEL OPERATOR CPT-16014 Visit 15:01:38 CDT CPT-76946 Sono OB comp > 14 weeks 16:05:04 CDT 03/18 CPT-72177 Spec Collection and Handling Fee 10:45:40 C DT CPT-52102 Visit 10:45:40 CDT
--- OUTSIDE RECORDS SUMMARY | 2020-01-05 00:06 | XMS REPORT | Clinical Summary ---
Author Author Admin, Giuliana Vasquez Organization [employer] Address Unknown Phone Unavailable Allergies, Adverse Reactions, [...] use disorder NEED FOR PROPHYLACTIC VACCINATION WITH SUISVPW-AYEQY-Q UBELLA (MMR) VACCINE V06.4 Active Dionne Stewart MD Need for prophylactic vaccination with tabxlda-udffn-ppdvosu [MMR] vaccine Contraceptive management V25.9 Active Cintia sommer APRN Encounter for unspecified contraceptive management Medication List Medication Instructions Start Date Stop Date Generic Name NDC Status Provider Patient Instruction FLAGYL 250 MG TAB One tablet three times a day METRONIDAZOLE 84498075958 Active Cintia [employer] SECURITIES SALES ASSOCIATE Active CYCLOBENZAPRINE HCL 10 MG TABS 1 tablet by mouth three times daily as needed for muscle spasm/pain CYCLOBENZAPRINE HCL 79734257416 Active Cintia Pagan APRN Active CONCEPT DHA 53.5-38-1 MG ORAL CAPS one tab PO daily KUMJEH-FAFMX-VWJC-FA-OMEGA 3 68619813806 Active Dionne Stewart MD Active [facility] 28-0.8 MG ORAL TABS VIT-FE FUMARATE-FA 87447463236 No Longer Active Dionne Stewart MD Active [...] 11 .0-15.0 platelet count 211 THOUSAND/UL 10*3/mm3 936-722 5079/07/24 mean platelet volume 8.5 fL 7.5-11.5 Blood [...] T DETECTED Lab Report: Drug Abuse Pnl 10-50/29569, RPR (DX) W/REFL TITER & CONFIR - Serology rapid plasma reagin antibody titer NON-REACTIVE NON-REACTIVE Lab Report: HEPATITIS B S AG W/, HIV-1/2 Agn/Mikaela/82082, RUBELLA IGG AB( ... - Chemistry hepatitis B surface antigen NON-REACTIVE NON-RE ACTIVE Lab Report: HEPATITIS B S AG W/, HIV-1/2 Agn/Mikaela/48054, RUBELLA IGG AB( ... - Serology rubella antibody, serum, IgG 1.06 Lab Report: Thyroid Stimulating Hormone (L), Wet Prep - Chemistry TSH 0.70 m[iU]/mL 0.36-3.74 Lab Report: [facility] [place] - Chemistry human chorionic gonadotropin , urine, qualitative (urine test) Negative Negative Office Visit: Initial OB Visit - Blood b ank antibody screen, serum negative Rh antigen pos blood type with RH factor O Office Visit: Initial OB Visit - Liquid Chlorine Operator ry Neisseria gonorrhoeae, genital culture negative protein, [...] Depo Provera 150 mg (Medroxyprogesterone) 08/30 16:06:30 COOLING TOWER TECHNICIAN CPT-29295 Abx/Therapy Injection 16:06:30 COOLING TOWER TECHNICIAN CPT-J1050 Depo Provera 150 mg (Medroxyprogesterone) 08/30 15:39:17 COOLING TOWER TECHNICIAN CPT-26391 Visit 15:01:38 CDT CPT-72075 Sono OB comp > 14 weeks 16:05:04 CDT 03/18 CPT-72954 Spec Collection and Handling Fee 10:45:40 C DT CPT-71861 Visit 10:45:40 CDT
--- OUTSIDE RECORDS SUMMARY | 2020-01-05 00:06 | XMS REPORT | Clinical Summary ---
Author Author Admin, Giuliana Vasquez Organization [employer] Address Unknown Phone Unavailable Allergies, Adverse Reactions, [...] use disorder NEED FOR PROPHYLACTIC VACCINATION WITH PEWMTXU-MDQTF-S UBELLA (MMR) VACCINE V06.4 Active Dionne Stewart MD Need for prophylactic vaccination with woxhjem-dewtb-nvhqyam [MMR] vaccine Medication List Medication Instructions Start Date Stop Date Generic Name NDC Status Provider Patient Instruction [facility]S 28-0.8 MG ORAL TABS PRE VIT-FE FUMARATE-FA 69351810880 Active Dionne Stewart MD Active Immunizations Vaccine [...] 11 .0-15.0 platelet count 211 THOUSAND/UL 10*3/mm3 837-812 1110/07/24 mean platelet volume 8.5 fL 7.5-11.5 Blood [...] T DETECTED Lab Report: Drug Abuse Pnl 1050/66338, RPR (DX) W/REFL TITER & CONFIR - Serology rapid plasma reagin antibody titer NON-REACTIVE NON-REACTIVE Lab Report: HEPATITIS B S AG W/, HIV-1/2 Agn/Mikaela/01243, RUBELLA IGG AB( ... - Chemistry hepatitis B surface antigen NON-REACTIVE NON-RE ACTIVE Lab Report: HEPATITIS B S AG W/, HIV-1/2 Agn/Mikaela/83683, RUBELLA IGG AB( ... - Serology rubella antibody, serum, IgG 1.06 Lab Report: Thyroid Stimulating Hormone (L), Wet Prep - Chemistry TSH 0.70 m[iU]/mL 0.36-3.74 Office Visit: Initial OB Visit - Blood b ank antibody screen, serum negative Rh antigen pos blood type with RH factor O Office Visit: Initial OB Visit - Toll Mechanic ry Neisseria gonorrhoeae, genital culture negative protein, [...] Name Date Entry Date Standard Desc ription CPT-58253 Sono OB comp > 14 weeks 16:05:04 CDT 03/18 CPT-96221 Spec Collection and Handling Fee 10:45:40 C DT CPT-43510 Visit 10:45:40 CDT
--- OUTSIDE RECORDS SUMMARY | 2020-01-05 00:06 | XMS REPORT | Clinical Summary ---
[...] use disorder NEED FOR PROPHYLACTIC VACCINATION WITH MLZXIEN-ZJTJY-U UBELLA (MMR) VACCINE V06.4 Resolved Cintia Pagan APRN Need for prophylactic vaccination with fvvwdym-gsenj-rdtdmgp [MMR] vaccine Contraceptive management V25.9 Resolved Taiwo [...] r care, delayed ICD-V23.7 Inactive Kristin Pagan VIDEO SPECIALIST NEED FOR PROPHYLACTIC VACCINATION WITH MUCHCZL-LGWTF-M UBELLA (MMR) VACCINE ICD-V06.4 Inactive Cintia Pagan VIDEO SPECIALIST Contraceptive management ICD-V25.9 Inactive Dionne Stewart MD follow-up, routine ICD-V24.2 Inacti ve Dionne Stewart MD Vaginal discharge ICD-623.5 Inactive Dionne spencer MD Medication List Medication Instructions Start Date Stop Date Generic Name NDC Status Provider Patient Instruction FLAGYL 500 MG ORAL TABLET 1 tablet PO BID for 7 days METRONIDAZOLE 59562168750 Active Billie Active TYLENOL PM EXTRA STRENGTH 500-25 MG ORAL TABLET PRN 12/31 DIPHENHYDRAMINE-APAP (SLEEP) 48379305874 Active Dionne Stewart MD Active EQL FORMULA 28-0.8 MG ORAL TABLET 1 tablet daily 1 VIT-FE FUMARATE-FA 91212397459 Active Dionne Stewart MD Activ e CONCEPT DHA 53.5-38-1 MG ORAL CAPSULE one tab PO daily DJZLLO-DXDUJ-RFBN-FA-OMEGA 3 13400797337 No Longer Active Dionne Stewart MD Active CYCLOBENZAPRINE HCL 10 MG ORAL TABLET 1 tablet by mout h three times daily as needed for muscle spasm/pain CYCLOBENZAPRINE HCL 22553910406 No Longer Active Dionne Stewart MD Active TRI-SPRINTEC 0.18/0.215/0.25 MG-35 MCG ORAL TABLET 1 po qd a s directed NORGESTIM-ETH ESTRAD TRIPHASIC 43550162906 N o Longer Active Dionne Stewart MD Active FLAGYL 250 MG ORAL TABLET One tablet three times a day METRONIDAZOLE 23751236162 No Longer Active Cintia Pagan APRN Active [facility]S 28-0.8 MG ORAL TABLET 04/10 VIT-FE FUMARATE-FA 53800984028 No Longer Active Dionne Setwart MD Active [facility] 28-0.8 MG ORAL TABLET 04/10 [facility]S 28-0.8 MG ORAL TABLET VIT-FE FUMARATE-FA Inactive TRI-SPRINTEC 0.18/0.215/0.25 MG-35 MCG ORAL TABLET 1 po qd a s directed TRI-SPRINTEC 0.18/0.215/0.25 MG-35 MCG ORAL TABL ET 414535 NORGESTIM-ETH ESTRAD TRIPHASIC Inactive CYCLOBENZAPRINE HCL 10 MG ORAL TABLET 1 tablet by mout h three times daily as needed for muscle spasm/pain CYCLOBENZAP RINE HCL 10 MG ORAL TABLET 026176 CYCLOBENZAPRINE HCL Inactive CONCEPT DHA 53.5-38-1 MG ORAL CAPSULE one tab PO daily CONCEPT DHA 53.5-38-1 MG ORAL CAPSULE SPKRLO-CCMKI-FWCM-FA-O BILLIE 3 Inactive FLAGYL 250 MG ORAL TABLET One tablet three times a day FLAGYL 250 MG ORAL TABLET 952709 METRONIDAZOLE Inactive Immunizations Vaccine Administration Date Value [...] 11 .0-15.0 platelet count 226 THOUSAND/UL 10*3/mm3 197-686 9630/05/11 mean platelet volume 10.3 fL 7.5-12.5 Lab [...] UC Encounters Code Encounter Date Provider Facility CPT-43900 Level 3 Est. Patient 17:31:05 PORTFOLIO ADMINISTRATOR Cintia sommer VIDEO SPECIALIST [facility] Procedures Code Procedure Name Date Entry Date Standard Desc ription CPT-09122C Sono OB comp <14 weeks ([place] Only) - X RAY USE ONLY 12:09:02 CDT CPT-22443 Spec Collection and Handling Fee 10:11:50 C DT CPT-70478 Visit 10:11:49 CDT CPT-J1050 Depo Provera 150 mg (Medroxyprogesterone) 08/30 16:06:30 PORTFOLIO ADMINISTRATOR CPT-36711 Abx/Therapy Injection 16:06:30 PORTFOLIO ADMINISTRATOR CPT-J1050 Depo Provera 150 mg (Medroxyprogesterone) 08/30 15:39:17 PORTFOLIO ADMINISTRATOR CPT-49084 Visit 15:01:38 CDT CPT-35694 Sono OB comp > 14 weeks 16:05:04 CDT 03/18 CPT-81811 Spec Collection and Handling Fee 10:45:40 C DT CPT-58199 Visit 10:45:40 CDT
--- OUTSIDE RECORDS SUMMARY | 2020-01-05 00:06 | XMS REPORT | Clinical Summary ---
Author Author Admin, Giuliana Flores Organization [facility] Address Unknown Phone Unavailable Allergies, Adverse Reactions, [...] use disorder NEED FOR PROPHYLACTIC VACCINATION WITH HROMAKE-ZELNR-J UBELLA (MMR) VACCINE V06.4 Resolved Cintia Pagan APRN Need for prophylactic vaccination with uyhhmhi-iomwy-lkeswkm [MMR] vaccine Contraceptive management V25.9 Active Cintia sommer DOCUMENTATION SPECIALIST Encounter for unspecified contraceptive management follow-up, routine V24.2 Active 09/08 Cintia Pagan DOCUMENTATION SPECIALIST Routine follow-up Vaginal discharge 623.5 Active Cintia Pagan APRN Leukorrhea, not specified as infective Supervision of other normal ICD-V22.1 7 Inactive Cintia Pagan APRN care, delayed ICD-V23.7 Inactive Kristin Pagan DOCUMENTATION SPECIALIST NEED FOR PROPHYLACTIC VACCINATION WITH FOKCSOX-BPCMV-Y UBELLA (MMR) VACCINE ICD-V06.4 Inactive Cintia Pagan DOCUMENTATION SPECIALIST Medication List Medication Instructions Start Date Stop Date Generic Name NDC Status Provider Patient Instruction FLAGYL 250 MG TAB One tablet three times a day METRONIDAZOLE 03470579016 No Longer Active Cintia Pagan APRN Active CYCLOBENZAPRINE HCL 10 MG TABS 1 tablet by mouth three times daily as needed for muscle spasm/pain CYCLOBENZAPRINE HCL 84362932960 Active Cintia Pagan DOCUMENTATION SPECIALIST Active CONCEPT DHA 53.5-38-1 MG ORAL CAPS one tab PO daily DLAOOH-DKVPJ-SFWU-FA-OMEGA 3 88007198746 Active Dionne Stewart MD Active [facility] 28-0.8 MG ORAL TABS VIT-FE FUMARATE-FA 13340644667 No Longer Active Dionne Stewart MD Active [facility] 28-0.8 MG ORAL TABS CVS 28-0.8 MG ORAL TABS VIT-FE FUMARATE-FA Inactive FLAGYL 250 MG TAB One tablet three times a day FLAGYL 250 MG TAB 383829 METRONIDAZOLE Inactive Immunizations Vaccine Administration Date Value [...] 11 .0-15.0 platelet count 211 THOUSAND/UL 10*3/mm3 968-672 3291/07/24 mean platelet volume 8.5 fL 7.5-11.5 Blood type O Lab Report: ABO GROUP & RH TYPE, ANTIBOD Y SCREEN, RBCW/REFL I, CBC (IN ... - Lab chlamydia DNA probe NOT DETECTED NOT DETECTED Lab Report: ABO GROUP & RH TYPE, ANTIBOD Y SCREEN, RBCW/REFL I, CBC (IN ... - Microbiology Neisseria gonorrhoeae DNA probe NOT DETECTED NO T DETECTED Lab Report: Chlamydia/GC APTIMA/[id number] - Lab chlamydia DNA probe NOT DETECTED NOT DETECTED Lab Report: Chlamydia/GC APTIMA/[id number] - Microbiology Neisseria gonorrhoeae DNA probe NOT DETECTED NO T DETECTED Lab Report: Drug Abuse Pnl 10-50/[id number], RPR (DX) W/REFL TITER & CONFIR - Serology rapid plasma reagin antibody titer NON-REACTIVE NON-REACTIVE Lab Report: HEPATITIS B S AG W/, HIV-1/2 Agn/Mikaela/23922, RUBELLA IGG AB( ... - Chemistry hepatitis B surface antigen NON-REACTIVE NON-RE ACTIVE Lab Report: HEPATITIS B S AG W/, HIV-1/2 Agn/Mikaela/79970, RUBELLA IGG AB( ... - Serology rubella antibody, serum, IgG 1.06 Lab Report: Thyroid Stimulating Hormone (L), Wet Prep - Chemistry TSH 0.70 m[iU]/mL 0.36-3.74 Lab Report: [facility] [place] - Chemistry human chorionic gonadotropin , urine, qualitative (urine test) Negative Negative Office Visit: Initial OB Visit - Blood b ank antibody screen, serum negative Rh antigen pos blood type with RH factor O Office Visit: Initial OB Visit - Making Machine Catcher ry Neisseria gonorrhoeae, genital culture negative protein, [...] N Encounters Code Encounter Date Provider Facility CPT-78689 Level 3 Est. Patient 17:31:05 DRUMS TEACHER Cintia Al [facility] Procedures Code Procedure Name Date Entry Date Standard Desc ription CPT-J1050 Depo Provera 150 mg (Medroxyprogesterone) 08/30 16:06:30 DRUMS TEACHER CPT-01766 Abx/Therapy Injection 16:06:30 DRUMS TEACHER CPT-J1050 Depo Provera 150 mg (Medroxyprogesterone) 08/30 15:39:17 DRUMS TEACHER CPT-77408 Visit 15:01:38 CDT CPT-16284 Sono OB comp > 14 weeks 16:05:04 CDT 03/18 CPT-78480 Spec Collection and Handling Fee 10:45:40 C DT CPT-75289 Visit 10:45:40 CDT
--- OUTSIDE RECORDS SUMMARY | 2020-01-05 00:07 | XMS REPORT | Clinical Summary ---
Author Author Admin, Giuliana Vasquez Organization [employer] Address Unknown Phone Unavailable Allergies, Adverse Reactions, [...] use disorder NEED FOR PROPHYLACTIC VACCINATION WITH PKBHBIJ-FDHWF-U UBELLA (MMR) VACCINE V06.4 Active Dionne Stewart MD Need for prophylactic vaccination with mepadqb-bovoc-lbehivu [MMR] vaccine Medication List Medication Instructions Start Date Stop Date Generic Name NDC Status Provider Patient Instruction CVS 28-0.8 MG ORAL TABS PRE VIT-FE FUMARATE-FA 40069133987 Active Dionne Stewart MD Active Immunizations Vaccine [...] 11 .0-15.0 platelet count 211 THOUSAND/UL 10*3/mm3 223-497 3440/07/24 mean platelet volume 8.5 fL 7.5-11.5 Blood [...] T DETECTED Lab Report: Drug Abuse Pnl 1050/09098, RPR (DX) W/REFL TITER & CONFIR - Serology rapid plasma reagin antibody titer NON-REACTIVE NON-REACTIVE Lab Report: HEPATITIS B S AG W/, HIV-1/2 Agn/Mikaela/25879, RUBELLA IGG AB( ... - Chemistry hepatitis B surface antigen NON-REACTIVE NON-RE ACTIVE Lab Report: HEPATITIS B S AG W/, HIV-1/2 Agn/Mikaela/75487, RUBELLA IGG AB( ... - Serology rubella antibody, serum, IgG 1.06 Lab Report: Thyroid Stimulating Hormone (L), Wet Prep - Chemistry TSH 0.70 m[iU]/mL 0.36-3.74 Office Visit: Initial OB Visit - Blood b ank antibody screen, serum negative Rh antigen pos blood type with RH factor O Office Visit: Initial OB Visit - Dropper Tank Storage ry Neisseria gonorrhoeae, genital culture negative protein, [...] Name Date Entry Date Standard Desc ription CPT-70726 Sono OB comp > 14 weeks 16:05:04 CDT 03/18 CPT-72016 Spec Collection and Handling Fee 10:45:40 C DT CPT-71869 Visit 10:45:40 CDT
--- OUTSIDE RECORDS SUMMARY | 2020-01-05 00:07 | XMS REPORT | Clinical Summary ---
Author Author Admin, Giuliana Flores Organization [facility] Address Unknown Phone Unavailable Allergies, Adverse Reactions, Alerts Allergy Name Reaction Description Start Date Severity Status Pr ovider No Known Allergies Estela Clifton LPN Conditions or Problems Problem Name Problem Code Onset Date Status Entry Date Provider Comment Standard Description Annotate Supervision of other normal V22.1 Resolved Cintia Pagan CANDY FEEDER Supervision of other normal Supervision of other normal V22.1 Active Dionne Stewart MD Supervision of other normal care, delayed V23.7 Resolved Cintia flores APRN Supervision of high-risk : insufficient care Drug abuse, hx of V15.89 Active Dionne Stewart MD Other specified personal history presenting hazards to health Tobacco abuse, gestational 305.1 Active Nilda Stewart MD Tobacco use disorder NEED FOR PROPHYLACTIC VACCINATION WITH YDOETQM-QATZZ-V UBELLA (MMR) VACCINE V06.4 Resolved Cintia Pagan APRN Need for prophylactic vaccination with ykvqqna-zimil-gfbnlum [MMR] vaccine Contraceptive management V25.9 Resolved Taiwo [...] r care, delayed ICD-V23.7 Inactive Kristin Pagan CANDY FEEDER NEED FOR PROPHYLACTIC VACCINATION WITH RDTRSUS-NVXVP-C UBELLA (MMR) VACCINE ICD-V06.4 Inactive Cintia Pagan CANDY FEEDER Contraceptive management ICD-V25.9 Inactive Dionne Stewart MD follow-up, routine ICD-V24.2 Inacti ve Dionne Stewart MD Vaginal discharge ICD-623.5 Inactive Dionne spencer MD Medication List Medication Instructions Start Date Stop Date Generic Name NDC Status Provider Patient Instruction CONCEPT DHA 53.5-38-1 MG ORAL CAPSULE one tab PO daily ALJYYK-ZBGNT-AOUJ-FA-OMEGA 3 52019611864 Active Dionne Stewart MD Active FLAGYL 500 MG ORAL TABLET 1 tablet PO BID for 7 days 2 METRONIDAZOLE 16390166259 No Longer Active Dionne Stewart MD Active TYLENOL PM EXTRA STRENGTH 500-25 MG ORAL TABLET PRN 12/31 DIPHENHYDRAMINE-APAP (SLEEP) 03886409343 Active Dionne Stewart MD Active EQL FORMULA 28-0.8 MG ORAL TABLET 1 tablet daily 1 VIT-FE FUMARATE-FA 92116811703 No Longer Active Dionne Stewart MD A ctive CONCEPT DHA 53.5-38-1 MG ORAL CAPSULE one tab PO daily NXEXWD-TRDKI-HJDF-FA-OMEGA 3 61148748488 No Longer Active Dionne Stewart MD Active CYCLOBENZAPRINE HCL 10 MG ORAL TABLET 1 tablet by mout h three times daily as needed for muscle spasm/pain CYCLOBENZAPRINE HCL 72795776677 No Longer Active Dionne Stewart MD Active TRI-SPRINTEC 0.18/0.215/0.25 MG-35 MCG ORAL TABLET 1 po qd a s directed NORGESTIM-ETH ESTRAD TRIPHASIC 34728995964 N o Longer Active Dionne Stewart MD Active FLAGYL 250 MG ORAL TABLET One tablet three times a day METRONIDAZOLE 49636625358 No Longer Active Cintia Pagan CANDY FEEDER Active CVS 28-0.8 MG ORAL TABLET 04/10 VIT-FE FUMARATE-FA 55647340722 No Longer Active Dionne Stewart MD Active CVS 28-0.8 MG ORAL TABLET 04/10 CVS 28-0.8 MG ORAL TABLET VIT-FE FUMARATE-FA Inactive TRI-SPRINTEC 0.18/0.215/0.25 MG-35 MCG ORAL TABLET 1 po qd a s directed TRI-SPRINTEC 0.18/0.215/0.25 MG-35 MCG ORAL TABL ET 902732 NORGESTIM-ETH ESTRAD TRIPHASIC Inactive CYCLOBENZAPRINE HCL 10 MG ORAL TABLET 1 tablet by mout h three times daily as needed for muscle spasm/pain CYCLOBENZAP RINE HCL 10 MG ORAL TABLET 891750 CYCLOBENZAPRINE HCL Inactive CONCEPT DHA 53.5-38-1 MG ORAL CAPSULE one tab PO daily CONCEPT DHA 53.5-38-1 MG ORAL CAPSULE NRTUET-HHPSE-QOZG-FA-O BILLIE 3 Inactive FLAGYL 500 MG ORAL TABLET 1 tablet PO BID for 7 days 2 FLAGYL 500 MG ORAL TABLET 635352 METRONIDAZOLE Inactive FLAGYL 250 MG ORAL TABLET One tablet three times a day FLAGYL 250 MG ORAL TABLET 499441 METRONIDAZOLE Inactive Immunizations Vaccine Administration Date Value [...] 11 .0-15.0 platelet count 226 THOUSAND/UL 10*3/mm3 361-794 8269/05/11 mean platelet volume 10.3 fL 7.5-12.5 Lab [...] N Encounters Code Encounter Date Provider Facility CPT-02094 Level 3 Est. Patient 17:31:05 VP DESIGN Cintia sommer [facility] Procedures Code Procedure Name Date Entry Date Standard Desc ription CPT-06197T Sono OB comp <14 weeks ([place] Only) - X RAY USE ONLY 12:09:02 CDT CPT-64883 Spec Collection and Handling Fee 10:11:50 C DT CPT-13107 Visit 10:11:49 CDT CPT-J1050 Depo Provera 150 mg (Medroxyprogesterone) 08/30 16:06:30 VP DESIGN CPT-10957 Abx/Therapy Injection 16:06:30 VP DESIGN CPT-J1050 Depo Provera 150 mg (Medroxyprogesterone) 08/30 15:39:17 VP DESIGN CPT-47016 Visit 15:01:38 CDT CPT-76061 Sono OB comp > 14 weeks 16:05:04 CDT 03/18 CPT-01248 Spec Collection and Handling Fee 10:45:40 C DT CPT-22154 Visit 10:45:40 CDT
--- OUTSIDE RECORDS SUMMARY | 2020-01-05 00:07 | XMS REPORT | Clinical Summary ---
Author Author Admin, Giuliana Flores Organization [facility] Address Unknown Phone Unavailable Allergies, Adverse Reactions, Alerts Allergy Name Reaction Description Start Date Severity Status Pr ovider No Known Allergies Estela Clifton LPN Conditions or Problems Problem Name Problem Code Onset Date Status Entry Date Provider Comment Standard Description Annotate Supervision of other normal V22.1 Resolved Cintia Pagan APERTURE MASK ETCHER Supervision of other normal Supervision of other normal V22.1 Active Dionne Stewart MD Supervision of other normal care, delayed V23.7 Resolved Cintia flores APRN Supervision of high-risk : insufficient care Drug abuse, hx of V15.89 Active Dionne Stewart MD Other specified personal history presenting hazards to health Tobacco abuse, gestational 305.1 Active Nilda Stewart MD Tobacco use disorder NEED FOR PROPHYLACTIC VACCINATION WITH IACVGQI-XDVUT-S UBELLA (MMR) VACCINE V06.4 Resolved Cintia Pagan APRN Need for prophylactic vaccination with ykgnvzs-rgfvo-xeuebqi [MMR] vaccine Contraceptive management V25.9 Resolved Taiwo [...] r care, delayed ICD-V23.7 Inactive Kristin Pagan APERTURE MASK ETCHER NEED FOR PROPHYLACTIC VACCINATION WITH KQULMQG-FUCRG-E UBELLA (MMR) VACCINE ICD-V06.4 Inactive Cintia Pagan APERTURE MASK ETCHER Contraceptive management ICD-V25.9 Inactive Dionne Stewart MD follow-up, routine ICD-V24.2 Inacti ve Dionne Stewart MD Vaginal discharge ICD-623.5 Inactive Dionne spencer MD Medication List Medication Instructions Start Date Stop Date Generic Name NDC Status Provider Patient Instruction CONCEPT DHA 53.5-38-1 MG ORAL CAPSULE one tab PO daily AXWCRV-POJWW-KJTP-FA-OMEGA 3 23957714099 Active Dionne Stewart MD Active FLAGYL 500 MG ORAL TABLET 1 tablet PO BID for 7 days 2 METRONIDAZOLE 02433907832 No Longer Active Dionne Stewart MD Active TYLENOL PM EXTRA STRENGTH 500-25 MG ORAL TABLET PRN 12/31 DIPHENHYDRAMINE-APAP (SLEEP) 62566318131 Active Dionne Stewart MD Active EQL FORMULA 28-0.8 MG ORAL TABLET 1 tablet daily 1 VIT-FE FUMARATE-FA 08495619881 No Longer Active Dionne Stewart MD A ctive CONCEPT DHA 53.5-38-1 MG ORAL CAPSULE one tab PO daily TGDFQH-BEGGK-LBFU-FA-OMEGA 3 02516860000 No Longer Active Dionne Stewart MD Active CYCLOBENZAPRINE HCL 10 MG ORAL TABLET 1 tablet by mout h three times daily as needed for muscle spasm/pain CYCLOBENZAPRINE HCL 36079662623 No Longer Active Dionne Stewart MD Active TRI-SPRINTEC 0.18/0.215/0.25 MG-35 MCG ORAL TABLET 1 po qd a s directed NORGESTIM-ETH ESTRAD TRIPHASIC 16232931890 N o Longer Active Dionne Stewart MD Active FLAGYL 250 MG ORAL TABLET One tablet three times a day METRONIDAZOLE 67599613729 No Longer Active Cintia Pagan APERTURE MASK ETCHER Active CVS 28-0.8 MG ORAL TABLET 04/10 VIT-FE FUMARATE-FA 93515079416 No Longer Active Dionne Stewart MD Active CVS 28-0.8 MG ORAL TABLET 04/10 CVS 28-0.8 MG ORAL TABLET VIT-FE FUMARATE-FA Inactive TRI-SPRINTEC 0.18/0.215/0.25 MG-35 MCG ORAL TABLET 1 po qd a s directed TRI-SPRINTEC 0.18/0.215/0.25 MG-35 MCG ORAL TABL ET 188268 NORGESTIM-ETH ESTRAD TRIPHASIC Inactive CYCLOBENZAPRINE HCL 10 MG ORAL TABLET 1 tablet by mout h three times daily as needed for muscle spasm/pain CYCLOBENZAP RINE HCL 10 MG ORAL TABLET 767156 CYCLOBENZAPRINE HCL Inactive CONCEPT DHA 53.5-38-1 MG ORAL CAPSULE one tab PO daily CONCEPT DHA 53.5-38-1 MG ORAL CAPSULE BUXTRY-QTBBX-PJLM-FA-O BILLIE 3 Inactive FLAGYL 500 MG ORAL TABLET 1 tablet PO BID for 7 days 2 FLAGYL 500 MG ORAL TABLET 825243 METRONIDAZOLE Inactive FLAGYL 250 MG ORAL TABLET One tablet three times a day FLAGYL 250 MG ORAL TABLET 175666 METRONIDAZOLE Inactive Immunizations Vaccine Administration Date Value [...] 11 .0-15.0 platelet count 226 THOUSAND/UL 10*3/mm3 251-615 4049/05/11 mean platelet volume 10.3 fL 7.5-12.5 Lab [...] N Encounters Code Encounter Date Provider Facility CPT-21683 Level 3 Est. Patient 17:31:05 CT MRI TECHNOLOGIST Cintia sommer [facility] Procedures Code Procedure Name Date Entry Date Standard Desc ription CPT-38668M Sono OB comp <14 weeks ([place] Only) - X RAY USE ONLY 12:09:02 CDT CPT-69666 Spec Collection and Handling Fee 10:11:50 C DT CPT-58629 Visit 10:11:49 CDT CPT-J1050 Depo Provera 150 mg (Medroxyprogesterone) 08/30 16:06:30 CT MRI TECHNOLOGIST CPT-78866 Abx/Therapy Injection 16:06:30 CT MRI TECHNOLOGIST CPT-J1050 Depo Provera 150 mg (Medroxyprogesterone) 08/30 15:39:17 CT MRI TECHNOLOGIST CPT-90733 Visit 15:01:38 CDT CPT-88704 Sono OB comp > 14 weeks 16:05:04 CDT 03/18 CPT-45938 Spec Collection and Handling Fee 10:45:40 C DT CPT-00293 Visit 10:45:40 CDT
--- OUTSIDE RECORDS SUMMARY | 2020-01-05 00:07 | XMS REPORT | Clinical Summary ---
Author Author Admin, Giuliana Flores Organization [facility] Address Unknown Phone Unavailable Allergies, Adverse Reactions, Alerts Allergy Name Reaction Description Start Date Severity Status Pr ovider No Known Allergies Estela Clifton LPN Conditions or Problems Problem Name Problem Code Onset Date Status Entry Date Provider Comment Standard Description Annotate Supervision of other normal V22.1 Resolved Cintia Pagan DIGITAL SALES EXECUTIVE Supervision of other normal Supervision of other normal V22.1 Active Dionne Stewart MD Supervision of other normal care, delayed V23.7 Resolved Cintia flores APRN Supervision of high-risk : insufficient care Drug abuse, hx of V15.89 Active Dionne Stewart MD Other specified personal history presenting hazards to health Tobacco abuse, gestational 305.1 Active Nilda Stewart MD Tobacco use disorder NEED FOR PROPHYLACTIC VACCINATION WITH EZUHYNW-ZCVZK-Z UBELLA (MMR) VACCINE V06.4 Resolved Cintia Pagan APRN Need for prophylactic vaccination with cvyhqnf-nefuq-kykckbk [MMR] vaccine Contraceptive management V25.9 Resolved Taiwo [...] r care, delayed ICD-V23.7 Inactive Kristin Pagan DIGITAL SALES EXECUTIVE NEED FOR PROPHYLACTIC VACCINATION WITH PYYTXUT-NLOOX-X UBELLA (MMR) VACCINE ICD-V06.4 Inactive Cintia Pagan DIGITAL SALES EXECUTIVE Contraceptive management ICD-V25.9 Inactive Dionne Setwart MD follow-up, routine ICD-V24.2 Inacti ve Dionne Stewart MD Vaginal discharge ICD-623.5 Inactive Dionne spencer MD Medication List Medication Instructions Start Date Stop Date Generic Name NDC Status Provider Patient Instruction CONCEPT DHA 53.5-38-1 MG ORAL CAPSULE one tab PO daily XQCGOS-XVIUZ-EKLS-FA-OMEGA 3 80470886112 Active Dionne Stewart MD Active FLAGYL 500 MG ORAL TABLET 1 tablet PO BID for 7 days 2 METRONIDAZOLE 07672139944 No Longer Active Dionne Stewart MD Active TYLENOL PM EXTRA STRENGTH 500-25 MG ORAL TABLET PRN 12/31 DIPHENHYDRAMINE-APAP (SLEEP) 25927858758 Active Dionne Stewart MD Active EQL FORMULA 28-0.8 MG ORAL TABLET 1 tablet daily 1 VIT-FE FUMARATE-FA 87082773661 No Longer Active Dionne Stewart MD A ctive CONCEPT DHA 53.5-38-1 MG ORAL CAPSULE one tab PO daily HTRNCG-SOFTT-MITZ-FA-OMEGA 3 20790629362 No Longer Active Dionne Stewart MD Active CYCLOBENZAPRINE HCL 10 MG ORAL TABLET 1 tablet by mout h three times daily as needed for muscle spasm/pain CYCLOBENZAPRINE HCL 95412030554 No Longer Active Dionne Stewart MD Active TRI-SPRINTEC 0.18/0.215/0.25 MG-35 MCG ORAL TABLET 1 po qd a s directed NORGESTIM-ETH ESTRAD TRIPHASIC 04503701869 N o Longer Active Dionne Stewart MD Active FLAGYL 250 MG ORAL TABLET One tablet three times a day METRONIDAZOLE 35179462070 No Longer Active Cintia Pagan DIGITAL SALES EXECUTIVE Active CVS 28-0.8 MG ORAL TABLET 04/10 VIT-FE FUMARATE-FA 34743167181 No Longer Active Dionne Stewart MD Active CVS 28-0.8 MG ORAL TABLET 04/10 CVS 28-0.8 MG ORAL TABLET VIT-FE FUMARATE-FA Inactive TRI-SPRINTEC 0.18/0.215/0.25 MG-35 MCG ORAL TABLET 1 po qd a s directed TRI-SPRINTEC 0.18/0.215/0.25 MG-35 MCG ORAL TABL ET 175788 NORGESTIM-ETH ESTRAD TRIPHASIC Inactive CYCLOBENZAPRINE HCL 10 MG ORAL TABLET 1 tablet by mout h three times daily as needed for muscle spasm/pain CYCLOBENZAP RINE HCL 10 MG ORAL TABLET 875083 CYCLOBENZAPRINE HCL Inactive CONCEPT DHA 53.5-38-1 MG ORAL CAPSULE one tab PO daily CONCEPT DHA 53.5-38-1 MG ORAL CAPSULE JUASER-HJBDG-VWEN-FA-O BILLIE 3 Inactive FLAGYL 500 MG ORAL TABLET 1 tablet PO BID for 7 days 2 FLAGYL 500 MG ORAL TABLET 844167 METRONIDAZOLE Inactive FLAGYL 250 MG ORAL TABLET One tablet three times a day FLAGYL 250 MG ORAL TABLET 731730 METRONIDAZOLE Inactive Immunizations Vaccine Administration Date Value [...] 11 .0-15.0 platelet count 226 THOUSAND/UL 10*3/mm3 790-454 5346/05/11 mean platelet volume 10.3 fL 7.5-12.5 Lab [...] N Encounters Code Encounter Date Provider Facility CPT-34440 Level 3 Est. Patient 17:31:05 STRIPPING CUTTER AND WINDER Cintia sommer [facility] [place] Procedures Code Procedure Name Date Entry Date Standard Desc ription CPT-13818T Sono OB comp <14 weeks ([place] Only) - X RAY USE ONLY 12:09:02 CDT CPT-75086 Spec Collection and Handling Fee 10:11:50 C DT CPT-64132 Visit 10:11:49 CDT CPT-J1050 Depo Provera 150 mg (Medroxyprogesterone) 08/30 16:06:30 STRIPPING C[employer] WINDER CPT-53629 Abx/Therapy Injection 16:06:30 STRIPPING CUTTER AND WINDER CPT-J1050 Depo Provera 150 mg (Medroxyprogesterone) 08/30 15:39:17 STRIPPING CUTTER AND WINDER CPT-64857 Visit 15:01:38 CDT CPT-73898 Sono OB comp > 14 weeks 16:05:04 CDT 03/18 CPT-46549 Spec Collection and Handling Fee 10:45:40 C DT CPT-22649 Visit 10:45:40 CDT
--- OUTSIDE RECORDS SUMMARY | 2020-01-05 00:07 | XMS REPORT | Clinical Summary ---
Author Author Admin, Giuliana Flores Organization [facility] Address Unknown Phone Unavailable Allergies, Adverse Reactions, Alerts Allergy Name Reaction Description Start Date Severity Status Pr ovider No Known Allergies Amanda R obb RMA Conditions or Problems Problem Name Problem Code Onset Date Status Entry Date Provider Comment Standard Description Annotate Supervision of other normal V22.1 Resolved Cintia Pagan AUTO TRANSMISSION SPECIALIST Supervision of other normal Supervision of other normal V22.1 Active Dionne Stewart MD Supervision of other normal care, delayed V23.7 Resolved Cintia flores APRN Supervision of high-risk : insufficient care Drug abuse, hx of V15.89 Active Dionne Stewart MD Other specified personal history presenting hazards to health Tobacco abuse, gestational 305.1 Active Nilda Stewart MD Tobacco use disorder NEED FOR PROPHYLACTIC VACCINATION WITH NNKUPIP-CFEHD-K UBELLA (MMR) VACCINE V06.4 Resolved Cintia Pagan APRN Need for prophylactic vaccination with gletmaa-fxche-aonwbjp [MMR] vaccine Contraceptive management V25.9 Resolved Taiwo Stewart MD Encounter for unspecified contraceptive management follow-up, routine V24.2 Resolved 12/31 Dionne Stewart MD Routine follow-up Vaginal discharge 623.5 Resolved Dionne Flores D Leukorrhea, not specified as infective Genital herpes 054.10 Active Dionne Stewart MD Genital herpes, unspecified care, delayed ICD-V23.7 Inactive Kristin Alkemal AUTO TRANSMISSION SPECIALIST NEED FOR PROPHYLACTIC VACCINATION WITH ACROQVS-THUHJ-U UBELLA (MMR) VACCINE ICD-V06.4 Inactive Cintia Latasha AUTO TRANSMISSION SPECIALIST Contraceptive management ICD-V25.9 Inactive Dionne Stewart MD follow-up, routine ICD-V24.2 Inacti ve Dionne Stewart MD Vaginal discharge ICD-623.5 Inactive Dionne spencer MD Medication List Medication Instructions Start Date Stop Date Generic Name NDC Status Provider Patient Instruction TYLENOL PM EXTRA STRENGTH 500-25 MG ORAL TABLET PRN 12/31 DIPHENHYDRAMINE-APAP (SLEEP) 30942147335 Active Dionne Stewart MD Active EQL FORMULA 28-0.8 MG ORAL TABLET 1 tablet daily 1 VIT-FE FUMARATE-FA 55495930147 Active Dionne Stewart MD Activ e CONCEPT DHA 53.5-38-1 MG ORAL CAPSULE one tab PO daily BKBHXU-UQCRF-WSLK-FA-OMEGA 3 48354504565 No Longer Active Dionne Stewart MD Active CYCLOBENZAPRINE HCL 10 MG ORAL TABLET 1 tablet by mout h three times daily as needed for muscle spasm/pain CYCLOBENZAPRINE HCL 87153937168 No Longer Active Dionne Stewart MD Active TRI-SPRINTEC 0.18/0.215/0.25 MG-35 MCG ORAL TABLET 1 po qd a s directed NORGESTIM-ETH ESTRAD TRIPHASIC 97140553046 N o Longer Active Dionne Stewart MD Active FLAGYL 250 MG ORAL TABLET One tablet three times a day METRONIDAZOLE 42632504035 No Longer Active Cintia Pagan AUTO TRANSMISSION SPECIALIST Active [facility] 28-0.8 MG ORAL TABLET 04/10 VIT-FE FUMARATE-FA 59862358410 No Longer Active Dionne Stewart MD Active CVS 28-0.8 MG ORAL TABLET 04/10 CVS 28-0.8 MG ORAL TABLET VIT-FE FUMARATE-FA Inactive TRI-SPRINTEC 0.18/0.215/0.25 MG-35 MCG ORAL TABLET 1 po qd a s directed TRI-SPRINTEC 0.18/0.215/0.25 MG-35 MCG ORAL TABL ET 063955 NORGESTIM-ETH ESTRAD TRIPHASIC Inactive CYCLOBENZAPRINE HCL 10 MG ORAL TABLET 1 tablet by mout h three times daily as needed for muscle spasm/pain CYCLOBENZAP RINE HCL 10 MG ORAL TABLET 757635 CYCLOBENZAPRINE HCL Inactive CONCEPT DHA 53.5-38-1 MG ORAL CAPSULE one tab PO daily CONCEPT DHA 53.5-38-1 MG ORAL CAPSULE BCUANN-XXZVV-SUJP-FA-O BILLIE 3 Inactive FLAGYL 250 MG ORAL TABLET One tablet three times a day FLAGYL 250 MG ORAL TABLET 626275 METRONIDAZOLE Inactive Immunizations Vaccine Administration Date Value Standard Koko cription hepatitis B vaccine series no hepat itis B vaccine, unspecified formulation Diagnostic Results Date Name Value Unit Range Description Lab Report: Thyroid Stimulating Hormone (L), UADIP [...] 1.020 1.000-1.030 pH, urine, semiquantitative 8.5 5.0-8.5 Encounters Code Encounter Date Provider Facility CPT-54483 Level 3 Est. Patient 17:31:05 LOSS PREVENTION OFFICER Cintia sommer [facility] Procedures Code Procedure Name Date Entry Date Standard Desc ription CPT-83436 Spec Collection and Handling Fee 10:11:50 C DT CPT-55392 Visit 10:11:49 CDT CPT-J1050 Depo Provera 150 mg (Medroxyprogesterone) 08/30 16:06:30 LOSS PREVENTION OFFICER CPT-75409 Abx/Therapy Injection 16:06:30 LOSS PREVENTION OFFICER CPT-J1050 Depo Provera 150 mg (Medroxyprogesterone) 08/30 15:39:17 LOSS PREVENTION OFFICER CPT-94819 Visit 15:01:38 CDT CPT-43922 Sono OB comp > 14 weeks 16:05:04 CDT 03/18 CPT-99558 Spec Collection and Handling Fee 10:45:40 C DT CPT-21651 Visit 10:45:40 CDT
--- OUTSIDE RECORDS SUMMARY | 2020-01-05 00:07 | XMS REPORT | Clinical Summary ---
Author Author Admin, Giuliana Vasquez Organization [facility] Address Unknown Phone Unavailable Allergies, Adverse Reactions, [...] use disorder NEED FOR PROPHYLACTIC VACCINATION WITH PJYVHEL-WQWFI-A UBELLA (MMR) VACCINE V06.4 Active Dionne Stewart MD Need for prophylactic vaccination with hjlsell-bzbzl-mhiflwb [MMR] vaccine Medication List Medication Instructions Start Date Stop Date Generic Name NDC Status Provider Patient Instruction CONCEPT DHA 53.5-38-1 MG ORAL CAPS one tab PO daily PIWLWG-DGRAJ-QMNX-FA-OMEGA 3 91733917027 Active Dionne Stewart MD Active [facility] 28-0.8 MG ORAL TABS VIT-FE FUMARATE-FA 19950739783 No Longer Active Dionne Stewart MD Active [...] 11 .0-15.0 platelet count 211 THOUSAND/UL 10*3/mm3 715-945 7301/07/24 mean platelet volume 8.5 fL 7.5-11.5 Blood [...] T DETECTED Lab Report: Drug Abuse Pnl 10-50/95398, RPR (DX) W/REFL TITER & CONFIR - Serology rapid plasma reagin antibody titer NON-REACTIVE NON-REACTIVE Lab Report: HEPATITIS B S AG W/, HIV-1/2 Agn/Mikaela/28035, RUBELLA IGG AB( ... - Chemistry hepatitis B surface antigen NON-REACTIVE NON-RE ACTIVE Lab Report: HEPATITIS B S AG W/, HIV-1/2 Agn/Mikaela/20818, RUBELLA IGG AB( ... - Serology rubella antibody, serum, IgG 1.06 Lab Report: Thyroid Stimulating Hormone (L), Wet Prep - Chemistry TSH 0.70 m[iU]/mL 0.36-3.74 Office Visit: Initial OB Visit - Blood b ank antibody screen, serum negative Rh antigen pos blood type with RH factor O Office Visit: Initial OB Visit - [facility] Neisseria gonorrhoeae, genital culture negative hepatitis [...] Name Date Entry Date Standard Desc ription CPT-29202 Visit 15:01:38 CDT CPT-85351 Sono OB comp > 14 weeks 16:05:04 CDT 03/18 CPT-42422 Spec Collection and Handling Fee 10:45:40 C DT CPT-02245 Visit 10:45:40 CDT
--- OUTSIDE RECORDS SUMMARY | 2020-01-05 00:07 | XMS REPORT | Clinical Summary ---
Author Author Admin, Giuliana Flores Organization [facility] Address Unknown Phone Unavailable Allergies, Adverse Reactions, Alerts Allergy Name Reaction Description Start Date Severity Status Pr ovider No Known Allergies Estela Clifton LPN Conditions or Problems Problem Name Problem Code Onset Date Status Entry Date Provider Comment Standard Description Annotate Supervision of other normal V22.1 Resolved Cintia Pagan TOOL GRINDER SET UP OPERATOR GEAR Supervision of other normal Supervision of other normal V22.1 Active Dionne Stewart MD Supervision of other normal care, delayed V23.7 Resolved Cintia flores APRN Supervision of high-risk : insufficient care Drug abuse, hx of V15.89 Active Dionne Stewart MD Other specified personal history presenting hazards to health Tobacco abuse, gestational 305.1 Active Nilda Stewart MD Tobacco use disorder NEED FOR PROPHYLACTIC VACCINATION WITH GZZBDFJ-ATIHT-U UBELLA (MMR) VACCINE V06.4 Resolved Cintia Pagan APRN Need for prophylactic vaccination with xqmsjzr-gbxro-ynptnkd [MMR] vaccine Contraceptive management V25.9 Resolved Taiwo [...] r care, delayed ICD-V23.7 Inactive Kristin Pagan TOOL GRINDER SET UP OPERATOR GEAR NEED FOR PROPHYLACTIC VACCINATION WITH ASGIYQU-UFQXL-C UBELLA (MMR) VACCINE ICD-V06.4 Inactive Cintia Pagan TOOL GRINDER SET UP OPERATOR GEAR Contraceptive management ICD-V25.9 Inactive Dionne Stewart MD follow-up, routine ICD-V24.2 Inacti ve Dionne Stewart MD Vaginal discharge ICD-623.5 Inactive Dionne spencer MD Medication List Medication Instructions Start Date Stop Date Generic Name NDC Status Provider Patient Instruction CONCEPT DHA 53.5-38-1 MG ORAL CAPSULE one tab PO daily NJFLOJ-IKVZT-SECA-FA-OMEGA 3 64042799567 Active Dionne Stewart MD Active FLAGYL 500 MG ORAL TABLET 1 tablet PO BID for 7 days 2 METRONIDAZOLE 38452547986 No Longer Active Dionne Stewart MD Active TYLENOL PM EXTRA STRENGTH 500-25 MG ORAL TABLET PRN 12/31 DIPHENHYDRAMINE-APAP (SLEEP) 96398806373 Active Dionne Stewart MD Active EQL FORMULA 28-0.8 MG ORAL TABLET 1 tablet daily 1 VIT-FE FUMARATE-FA 46801189664 No Longer Active Dionne Stewart MD A ctive CONCEPT DHA 53.5-38-1 MG ORAL CAPSULE one tab PO daily MFAWUP-YSVWD-BEQX-FA-OMEGA 3 95399160400 No Longer Active Dionne Stewart MD Active CYCLOBENZAPRINE HCL 10 MG ORAL TABLET 1 tablet by mout h three times daily as needed for muscle spasm/pain CYCLOBENZAPRINE HCL 69076813010 No Longer Active Dionne Stewart MD Active TRI-SPRINTEC 0.18/0.215/0.25 MG-35 MCG ORAL TABLET 1 po qd a s directed NORGESTIM-ETH ESTRAD TRIPHASIC 19807740115 N o Longer Active Dionne Stewart MD Active FLAGYL 250 MG ORAL TABLET One tablet three times a day METRONIDAZOLE 62027200342 No Longer Active Cintia Pagan TOOL GRINDER SET UP OPERATOR GEAR Active [facility] 28-0.8 MG ORAL TABLET 04/10 VIT-FE FUMARATE-FA 95454878416 No Longer Active Dionne Stewart MD Active CVS 28-0.8 MG ORAL TABLET 04/10 [facility]S 28-0.8 MG ORAL TABLET VIT-FE FUMARATE-FA Inactive TRI-SPRINTEC 0.18/0.215/0.25 MG-35 MCG ORAL TABLET 1 po qd a s directed TRI-SPRINTEC 0.18/0.215/0.25 MG-35 MCG ORAL TABL ET 506249 NORGESTIM-ETH ESTRAD TRIPHASIC Inactive CYCLOBENZAPRINE HCL 10 MG ORAL TABLET 1 tablet by mout h three times daily as needed for muscle spasm/pain CYCLOBENZAP RINE HCL 10 MG ORAL TABLET 577716 CYCLOBENZAPRINE HCL Inactive CONCEPT DHA 53.5-38-1 MG ORAL CAPSULE one tab PO daily CONCEPT DHA 53.5-38-1 MG ORAL CAPSULE KSKLXQ-IODFU-XHOD-FA-O BILLIE 3 Inactive FLAGYL 500 MG ORAL TABLET 1 tablet PO BID for 7 days 2 FLAGYL 500 MG ORAL TABLET 500369 METRONIDAZOLE Inactive FLAGYL 250 MG ORAL TABLET One tablet three times a day FLAGYL 250 MG ORAL TABLET 914993 METRONIDAZOLE Inactive Immunizations Vaccine Administration Date Value [...] 11 .0-15.0 platelet count 226 THOUSAND/UL 10*3/mm3 811-480 7527/05/11 mean platelet volume 10.3 fL 7.5-12.5 Lab [...] N Encounters Code Encounter Date Provider Facility CPT-01092 Level 3 Est. Patient 17:31:05 MILL HAND PLATE MILL Cintia sommer [facility] Procedures Code Procedure Name Date Entry Date Standard Desc ription CPT-34398R Sono OB comp <14 weeks ([place] Only) - X RAY USE ONLY 12:09:02 CDT CPT-22882 Spec Collection and Handling Fee 10:11:50 C DT CPT-27329 Visit 10:11:49 CDT CPT-J1050 Depo Provera 150 mg (Medroxyprogesterone) 08/30 16:06:30 MILL HAND PLATE MILL CPT-35468 Abx/Therapy Injection 16:06:30 MILL HAND PLATE MILL CPT-J1050 Depo Provera 150 mg (Medroxyprogesterone) 08/30 15:39:17 MILL HAND PLATE MILL CPT-35946 Visit 15:01:38 CDT CPT-17738 Sono OB comp > 14 weeks 16:05:04 CDT 03/18 CPT-10424 Spec Collection and Handling Fee 10:45:40 C DT CPT-39788 Visit 10:45:40 CDT
--- OUTSIDE RECORDS SUMMARY | 2020-01-05 00:07 | XMS REPORT | Clinical Summary ---
Author Author Admin, Giuliana Flores Organization [facility] Address Unknown Phone Unavailable Allergies, [...] use disorder NEED FOR PROPHYLACTIC VACCINATION WITH VWNLGJK-WDPIT-G UBELLA (MMR) VACCINE V06.4 Resolved Cintia Pagan APRN Need for prophylactic vaccination with yktfqcu-vkhhz-roixmgx [MMR] vaccine Contraceptive management V25.9 Resolved Taiwo [...] r care, delayed ICD-V23.7 Inactive Kristin Pagan APPLIQUER NEED FOR PROPHYLACTIC VACCINATION WITH DZHMUAH-GWXEM-A UBELLA (MMR) VACCINE ICD-V06.4 Inactive Cintia Pagan APPLIQUER Contraceptive management ICD-V25.9 Inactive Dionne Stewart MD follow-up, routine ICD-V24.2 Inacti ve Dionne Stewart MD Vaginal discharge ICD-623.5 Inactive Dionne spencer MD Medication List Medication Instructions Start Date Stop Date Generic Name NDC Status Provider Patient Instruction FLAGYL 500 MG ORAL TABLET 1 tablet PO BID for 7 days METRONIDAZOLE 50655208100 Active Billie Active TYLENOL PM EXTRA STRENGTH 500-25 MG ORAL TABLET PRN 12/31 DIPHENHYDRAMINE-APAP (SLEEP) 81404061960 Active Dionne Stewart MD Active EQL FORMULA 28-0.8 MG ORAL TABLET 1 tablet daily 1 VIT-FE FUMARATE-FA 81748398446 Active Dionne Stewart MD Activ e CONCEPT DHA 53.5-38-1 MG ORAL CAPSULE one tab PO daily UVYGUQ-VKERX-QUUF-FA-OMEGA 3 63311912592 No Longer Active Dionne Stewart MD Active CYCLOBENZAPRINE HCL 10 MG ORAL TABLET 1 tablet by mout h three times daily as needed for muscle spasm/pain CYCLOBENZAPRINE HCL 11282031409 No Longer Active Dionne Stewart MD Active TRI-SPRINTEC 0.18/0.215/0.25 MG-35 MCG ORAL TABLET 1 po qd a s directed NORGESTIM-ETH ESTRAD TRIPHASIC 03511134729 N o Longer Active Dionne Stewart MD Active FLAGYL 250 MG ORAL TABLET One tablet three times a day METRONIDAZOLE 39235089899 No Longer Active Cintia Pagan APRN Active [facility]S 28-0.8 MG ORAL TABLET 04/10 VIT-FE FUMARATE-FA 19577109140 No Longer Active Dionne Stewart MD Active CVS 28-0.8 MG ORAL TABLET 04/10 CVS 28-0.8 MG ORAL TABLET VIT-FE FUMARATE-FA Inactive TRI-SPRINTEC 0.18/0.215/0.25 MG-35 MCG ORAL TABLET 1 po qd a s directed TRI-SPRINTEC 0.18/0.215/0.25 MG-35 MCG ORAL TABL ET 012226 NORGESTIM-ETH ESTRAD TRIPHASIC Inactive CYCLOBENZAPRINE HCL 10 MG ORAL TABLET 1 tablet by mout h three times daily as needed for muscle spasm/pain CYCLOBENZAP RINE HCL 10 MG ORAL TABLET 386612 CYCLOBENZAPRINE HCL Inactive CONCEPT DHA 53.5-38-1 MG ORAL CAPSULE one tab PO daily CONCEPT DHA 53.5-38-1 MG ORAL CAPSULE VNCPNT-TUBBY-TRGJ-FA-O BILLIE 3 Inactive FLAGYL 250 MG ORAL TABLET One tablet three times a day FLAGYL 250 MG ORAL TABLET 037078 METRONIDAZOLE Inactive Immunizations Vaccine Administration Date Value [...] 11 .0-15.0 platelet count 226 THOUSAND/UL 10*3/mm3 593-955 0443/05/11 mean platelet volume 10.3 fL 7.5-12.5 Lab [...] UC Encounters Code Encounter Date Provider Facility CPT-55673 Level 3 Est. Patient 17:31:05 CERAMIC TILE SETTER Cintia sommer APPLIQUER [facility] Procedures Code Procedure Name Date Entry Date Standard Desc ription CPT-59180U Sono OB comp <14 weeks ([place] Only) - X RAY USE ONLY 12:09:02 CDT CPT-71125 Spec Collection and Handling Fee 10:11:50 C DT CPT-41189 Visit 10:11:49 CDT CPT-J1050 Depo Provera 150 mg (Medroxyprogesterone) 08/30 16:06:30 CERAMIC TILE SETTER CPT-11792 Abx/Therapy Injection 16:06:30 CERAMIC TILE SETTER CPT-J1050 Depo Provera 150 mg (Medroxyprogesterone) 08/30 15:39:17 CERAMIC TILE SETTER CPT-96553 Visit 15:01:38 CDT CPT-29010 Sono OB comp > 14 weeks 16:05:04 CDT 03/18 CPT-53598 Spec Collection and Handling Fee 10:45:40 C DT CPT-41407 Visit 10:45:40 CDT
--- OUTSIDE RECORDS SUMMARY | 2020-01-05 00:08 | XMS REPORT | Clinical Summary ---
Author Author Admin, Giuliana Flores Organization [facility] Address Unknown Phone Unavailable Allergies, Adverse Reactions, [...] use disorder NEED FOR PROPHYLACTIC VACCINATION WITH UAOXMJH-MTVOK-W UBELLA (MMR) VACCINE V06.4 Resolved Cintia Pagan APRN Need for prophylactic vaccination with vmpudmi-wabhy-cbjdbgv [MMR] vaccine Contraceptive management V25.9 Resolved Taiwo [...] r care, delayed ICD-V23.7 Inactive Kristin Pagan MOBILE HOMES REPAIRER NEED FOR PROPHYLACTIC VACCINATION WITH VHNRZVM-KGWXQ-G UBELLA (MMR) VACCINE ICD-V06.4 Inactive Cintia Pagan MOBILE HOMES REPAIRER Contraceptive management ICD-V25.9 Inactive Dionne Stewart MD follow-up, routine ICD-V24.2 Inacti ve Dionne Stewart MD Vaginal discharge ICD-623.5 Inactive Dionne spencer MD Medication List Medication Instructions Start Date Stop Date Generic Name NDC Status Provider Patient Instruction FLAGYL 500 MG ORAL TABLET 1 tablet PO BID for 7 days METRONIDAZOLE 63955367862 Active Billie Active TYLENOL PM EXTRA STRENGTH 500-25 MG ORAL TABLET PRN 12/31 DIPHENHYDRAMINE-APAP (SLEEP) 25093071141 Active Dionne Stewart MD Active EQL FORMULA 28-0.8 MG ORAL TABLET 1 tablet daily 1 VIT-FE FUMARATE-FA 75663475514 Active Dionne Stewart MD Activ e CONCEPT DHA 53.5-38-1 MG ORAL CAPSULE one tab PO daily TSFFCD-BESXN-RAOS-FA-OMEGA 3 14342088108 No Longer Active Dionne Stewart MD Active CYCLOBENZAPRINE HCL 10 MG ORAL TABLET 1 tablet by mout h three times daily as needed for muscle spasm/pain CYCLOBENZAPRINE HCL 73809611615 No Longer Active Dionne Stewart MD Active TRI-SPRINTEC 0.18/0.215/0.25 MG-35 MCG ORAL TABLET 1 po qd a s directed NORGESTIM-ETH ESTRAD TRIPHASIC 30278276340 N o Longer Active Dionne Stewart MD Active FLAGYL 250 MG ORAL TABLET One tablet three times a day METRONIDAZOLE 22678484769 No Longer Active Cintia Pagan APRN Active CVS 28-0.8 MG ORAL TABLET 04/10 VIT-FE FUMARATE-FA 61436718602 No Longer Active Dionne Stewart MD Active CVS 28-0.8 MG ORAL TABLET 04/10 CVS 28-0.8 MG ORAL TABLET VIT-FE FUMARATE-FA Inactive TRI-SPRINTEC 0.18/0.215/0.25 MG-35 MCG ORAL TABLET 1 po qd a s directed TRI-SPRINTEC 0.18/0.215/0.25 MG-35 MCG ORAL TABL ET 987582 NORGESTIM-ETH ESTRAD TRIPHASIC Inactive CYCLOBENZAPRINE HCL 10 MG ORAL TABLET 1 tablet by mout h three times daily as needed for muscle spasm/pain CYCLOBENZAP RINE HCL 10 MG ORAL TABLET 546219 CYCLOBENZAPRINE HCL Inactive CONCEPT DHA 53.5-38-1 MG ORAL CAPSULE one tab PO daily CONCEPT DHA 53.5-38-1 MG ORAL CAPSULE MJWTAN-FLKYS-MWCB-FA-O BILLIE 3 Inactive FLAGYL 250 MG ORAL TABLET One tablet three times a day FLAGYL 250 MG ORAL TABLET 143080 METRONIDAZOLE Inactive Immunizations Vaccine Administration Date Value [...] 11 .0-15.0 platelet count 226 THOUSAND/UL 10*3/mm3 723-597 0999/05/11 mean platelet volume 10.3 fL 7.5-12.5 Lab [...] UC Encounters Code Encounter Date Provider Facility CPT-88855 Level 3 Est. Patient 17:31:05 HARBORMASTER Cintia sommer MOBILE HOMES REPAIRER [facility] Procedures Code Procedure Name Date Entry Date Standard Desc ription CPT-53221H Sono OB comp <14 weeks ([place] Only) - X RAY USE ONLY 12:09:02 CDT CPT-64539 Spec Collection and Handling Fee 10:11:50 C DT CPT-34881 Visit 10:11:49 CDT CPT-J1050 Depo Provera 150 mg (Medroxyprogesterone) 08/30 16:06:30 HARBORMASTER CPT-65529 Abx/Therapy Injection 16:06:30 HARBORMASTER CPT-J1050 Depo Provera 150 mg (Medroxyprogesterone) 08/30 15:39:17 HARBORMASTER CPT-66052 Visit 15:01:38 CDT CPT-06917 Sono OB comp > 14 weeks 16:05:04 CDT 03/18 CPT-20376 Spec Collection and Handling Fee 10:45:40 C DT CPT-03455 Visit 10:45:40 CDT
--- OUTSIDE RECORDS SUMMARY | 2020-01-05 00:08 | XMS REPORT | Clinical Summary ---
Author Author Admin, Giuliana Flores Organization [facility] Address Unknown Phone Unavailable Allergies, Adverse [...] use disorder NEED FOR PROPHYLACTIC VACCINATION WITH BQFTAZU-KMFUU-B UBELLA (MMR) VACCINE V06.4 Resolved Cintia Pagan APRN Need for prophylactic vaccination with jiismnn-vkqgw-isgfybn [MMR] vaccine Contraceptive management V25.9 Active Cintia sommer LINE DECORATOR Encounter for unspecified contraceptive management follow-up, routine V24.2 Active 09/08 Cintia Pagan LINE DECORATOR Routine follow-up Vaginal discharge 623.5 Active Cintia Pagan APRN Leukorrhea, not specified as infective Supervision of other normal ICD-V22.1 7 Inactive Cintia Pagan APRN care, delayed ICD-V23.7 Inactive Kristin Pagan LINE DECORATOR NEED FOR PROPHYLACTIC VACCINATION WITH MXBJUPD-LQOBQ-B UBELLA (MMR) VACCINE ICD-V06.4 Inactive Cintia Pagan LINE DECORATOR Medication List Medication Instructions Start Date Stop Date Generic Name NDC Status Provider Patient Instruction FLAGYL 250 MG TAB One tablet three times a day METRONIDAZOLE 91986015997 No Longer Active Cintia Pagan APRN Active CYCLOBENZAPRINE HCL 10 MG TABS 1 tablet by mouth three times daily as needed for muscle spasm/pain CYCLOBENZAPRINE HCL 29448934434 Active Cintia Pagan LINE DECORATOR Active CONCEPT DHA 53.5-38-1 MG ORAL CAPS one tab PO daily QIDBRO-XHYYQ-WNSE-FA-OMEGA 3 61914047827 Active Dionne Stewart MD Active CVS 28-0.8 MG ORAL TABS VIT-FE FUMARATE-FA 31358603610 No Longer Active Dionne Stewart MD Active CVS 28-0.8 MG ORAL TABS CVS 28-0.8 MG ORAL TABS VIT-FE FUMARATE-FA Inactive FLAGYL 250 MG TAB One tablet three times a day FLAGYL 250 MG TAB 520981 METRONIDAZOLE Inactive Immunizations Vaccine Administration Date Value [...] 11 .0-15.0 platelet count 211 THOUSAND/UL 10*3/mm3 923-134 9834/07/24 mean platelet volume 8.5 fL 7.5-11.5 Blood type O Lab Report: ABO GROUP & RH TYPE, ANTIBOD Y SCREEN, RBCW/REFL I, CBC (IN ... - Lab chlamydia DNA probe NOT DETECTED NOT DETECTED Lab Report: ABO GROUP & RH TYPE, ANTIBOD Y SCREEN, RBCW/REFL I, CBC (IN ... - Microbiology Neisseria gonorrhoeae DNA probe NOT DETECTED NO T DETECTED Lab Report: Chlamydia/GC APTIMA/62565 - Lab chlamydia DNA probe NOT DETECTED NOT DETECTED Lab Report: Chlamydia/GC APTIMA/39848 - Microbiology Neisseria gonorrhoeae DNA probe NOT DETECTED NO T DETECTED Lab Report: Drug Abuse Pnl 10-50/07885, RPR (DX) W/REFL TITER & CONFIR - Serology rapid plasma reagin antibody titer NON-REACTIVE NON-REACTIVE Lab Report: HEPATITIS B S AG W/, HIV-1/2 Agn/Mikaela/81005, RUBELLA IGG AB( ... - Chemistry hepatitis B surface antigen NON-REACTIVE NON-RE ACTIVE Lab Report: HEPATITIS B S AG W/, HIV-1/2 Agn/Mikaela/75508, RUBELLA IGG AB( ... - Serology rubella antibody, serum, IgG 1.06 Lab Report: Thyroid Stimulating Hormone (L), Wet Prep - Chemistry TSH 0.70 m[iU]/mL 0.36-3.74 Lab Report: [facility] [place] - Chemistry human chorionic gonadotropin , urine, qualitative (urine test) Negative Negative Office Visit: Initial OB Visit - Blood b ank antibody screen, serum negative Rh antigen pos blood type with RH factor O Office Visit: Initial OB Visit - [employer] Neisseria gonorrhoeae, genital culture negative protein, [...] N Encounters Code Encounter Date Provider Facility CPT-87967 Level 3 Est. Patient 17:31:05 WARDROBE ATTENDANT Cintia Al [facility] Procedures Code Procedure Name Date Entry Date Standard Desc ription CPT-J1050 Depo Provera 150 mg (Medroxyprogesterone) 08/30 16:06:30 WARDROBE ATTENDANT CPT-19560 Abx/Therapy Injection 16:06:30 WARDROBE ATTENDANT CPT-J1050 Depo Provera 150 mg (Medroxyprogesterone) 08/30 15:39:17 WARDROBE ATTENDANT CPT-85194 Visit 15:01:38 CDT CPT-83060 Sono OB comp > 14 weeks 16:05:04 CDT 03/18 CPT-36827 Spec Collection and Handling Fee 10:45:40 C DT CPT-45995 Visit 10:45:40 CDT
--- OUTSIDE RECORDS SUMMARY | 2020-01-05 00:08 | XMS REPORT | Clinical Summary ---
Author Author Admin, Giuliana Vasquez Organization [facility] Address Unknown Phone Unavailable Allergies, [...] 28-0.8 MG ORAL TABS PRE VIT-FE FUMARATE-FA 40494012463 Active Dionne Stewart MD Active Diagnostic Results Date Name Value Unit Range Description Lab Report: Thyroid Stimulating Hormone (L), Wet Prep - Chemistry TSH 0.70 m[iU]/mL 0.36-3.74 Procedures Code Procedure Name Date Entry Date Standard Desc ription CPT-17547 Spec Collection and Handling Fee 10:45:40 C DT CPT-96991 Visit 10:45:40 CDT
--- OUTSIDE RECORDS SUMMARY | 2020-01-05 00:08 | XMS REPORT | Clinical Summary ---
Author Author Admin, Giuliana Vasquez Organization [facility] Address Unknown Phone Unavailable Allergies, Adverse [...] 28-0.8 MG ORAL TABS PRE VIT-FE FUMARATE-FA 74239627271 Active Dionne Stewart MD Active Diagnostic Results Date Name Value Unit Range Description Lab Report: Thyroid Stimulating Hormone (L), Wet Prep - Chemistry TSH 0.70 m[iU]/mL 0.36-3.74 Procedures Code Procedure Name Date Entry Date Standard Desc ription CPT-92956 Sono OB comp > 14 weeks 16:05:04 CDT 03/18 CPT-96502 Spec Collection and Handling Fee 10:45:40 C DT CPT-87789 Visit 10:45:40 CDT
--- OUTSIDE RECORDS SUMMARY | 2020-01-05 00:08 | XMS REPORT | Clinical Summary ---
Author Author Admin, Giuliana Vasquez Organization [employer] Address Unknown Phone Unavailable Allergies, Adverse Reactions, [...] use disorder NEED FOR PROPHYLACTIC VACCINATION WITH VRQFUEL-PXEDQ-H UBELLA (MMR) VACCINE V06.4 Active Dionne Stewart MD Need for prophylactic vaccination with kiexiqd-hnvtp-khfxzzr [MMR] vaccine Medication List Medication Instructions Start Date Stop Date Generic Name NDC Status Provider Patient Instruction CVS 28-0.8 MG ORAL TABS PRE MINDY VIT-FE FUMARATE-FA 80828248325 Active Dionne Stewart MD Active Diagnostic Results [...] 11 .0-15.0 platelet count 211 THOUSAND/UL 10*3/mm3 575-602 7579/07/24 mean platelet volume 8.5 fL 7.5-11.5 Blood [...] Report: HEPATITIS B S AG W/, HIV-1/2 Agn/Mikaela/32367, RUBELLA IGG AB( ... - Chemistry hepatitis B surface antigen NON-REACTIVE NON-RE ACTIVE Lab Report: HEPATITIS B S AG W/, HIV-1/2 Agn/Mikaela/28175, RUBELLA IGG AB( ... - Serology rubella antibody, serum, IgG 1.06 Lab Report: Thyroid Stimulating Hormone (L), Wet Prep - Chemistry TSH 0.70 m[iU]/mL 0.36-3.74 Procedures Code Procedure Name Date Entry Date Standard Desc ription CPT-62159 Sono OB comp > 14 weeks 16:05:04 CDT 03/18 CPT-38004 Spec Collection and Handling Fee 10:45:40 C DT CPT-10729 Visit 10:45:40 CDT
--- OUTSIDE RECORDS SUMMARY | 2020-01-05 00:08 | XMS REPORT | Clinical Summary ---
Author Author Admin, Giuliana Vasquez Organization [employer] Address Unknown Phone Unavailable Allergies, Adverse Reactions, [...] use disorder NEED FOR PROPHYLACTIC VACCINATION WITH JWWTRBK-VUSFN-C UBELLA (MMR) VACCINE V06.4 Active Dionne Stewart MD Need for prophylactic vaccination with lsfnnzs-krlma-rfyrqhu [MMR] vaccine Medication List Medication Instructions Start Date Stop Date Generic Name NDC Status Provider Patient Instruction CVS 28-0.8 MG ORAL TABS PRE MINDY VIT-FE FUMARATE-FA 46598270588 Active Dionne Stewart MD Active Diagnostic Results [...] 11 .0-15.0 platelet count 211 THOUSAND/UL 10*3/mm3 892-939 8845/07/24 mean platelet volume 8.5 fL 7.5-11.5 Blood [...] Report: HEPATITIS B S AG W/, HIV-1/2 Agn/Mikaela/35642, RUBELLA IGG AB( ... - Chemistry hepatitis B surface antigen NON-REACTIVE NON-RE ACTIVE Lab Report: HEPATITIS B S AG W/, HIV-1/2 Agn/Mikaela/98062, RUBELLA IGG AB( ... - Serology rubella antibody, serum, IgG 1.06 Lab Report: Thyroid Stimulating Hormone (L), Wet Prep - Chemistry TSH 0.70 m[iU]/mL 0.36-3.74 Procedures Code Procedure Name Date Entry Date Standard Desc ription CPT-49010 Sono OB comp > 14 weeks 16:05:04 CDT 03/18 CPT-41962 Spec Collection and Handling Fee 10:45:40 C DT CPT-30447 Visit 10:45:40 CDT
--- OUTSIDE RECORDS SUMMARY | 2020-01-05 00:08 | XMS REPORT | Clinical Summary ---
Author Author Admin, Giuliana Vasquez Organization [employer] [facility] Address Unknown Phone Unavailable Allergies, Adverse Reactions, [...] 28-0.8 MG ORAL TABS PRE VIT-FE FUMARATE-FA [id number] Active Dionne Stewart MD Active Diagnostic Results Date Name Value Unit Range Description Lab Report: Thyroid Stimulating Hormone (L), Wet Prep - Chemistry TSH 0.70 m[iU]/mL 0.36-3.74 Procedures Code Procedure Name Date Entry Date Standard Desc ription CPT-91031 Sono OB comp > 14 weeks 16:05:04 CDT 03/18 CPT-16094 Spec Collection and Handling Fee 10:45:40 C DT CPT-49616 Visit 10:45:40 CDT
--- OUTSIDE RECORDS SUMMARY | 2020-01-05 00:08 | XMS REPORT | Clinical Summary ---
Author Author Admin, Giuliana Vasquez Organization [employer] Address Unknown Phone Unavailable Allergies, Adverse Reactions, [...] use disorder NEED FOR PROPHYLACTIC VACCINATION WITH MQAJXZI-ACAUY-A UBELLA (MMR) VACCINE V06.4 Active Dionne Stewart MD Need for prophylactic vaccination with owlghvr-wzbca-fnsjrcl [MMR] vaccine Medication List Medication Instructions Start Date Stop Date Generic Name NDC Status Provider Patient Instruction CVS 28-0.8 MG ORAL TABS PRE MINDY VIT-FE FUMARATE-FA 29172535241 Active Dionne Stewart MD Active Diagnostic Results Date Name Value Unit Range Description Lab Report: ABO GROUP & RH TYPE, ANTIBOD Y SCREEN, RBCW/REFL I, CBC (IN ... - Blood bank antibody screen, serum NO ANTIBODIES DETECTED Rh antigen RH(D) POSITIVE Lab Report: ABO GROUP & RH TYPE, ANTIBOD Y SCREEN, RBCW/REFL I, CBC (IN ... - Hematology Blood type O leukocyte count, blood 10.1 THOUSAND/UL 10*3/mm3 3.8-10. [...] 11 .0-15.0 platelet count 211 THOUSAND/UL 10*3/mm3 259-546 6832/07/24 mean platelet volume 8.5 fL 7.5-11.5 Lab Report: ABO GROUP & RH TYPE, ANTIBOD Y SCREEN, RBCW/REFL I, CBC (IN ... - Lab chlamydia DNA probe NOT DETECTED NOT DETECTED Lab Report: ABO GROUP & RH TYPE, ANTIBOD Y SCREEN, RBCW/REFL I, CBC (IN ... - Microbiology Neisseria gonorrhoeae DNA probe NOT DETECTED NO T DETECTED Lab Report: HEPATITIS B S AG W/, HIV-1/2 Agn/Mikaela/13107, RUBELLA IGG AB( ... - Chemistry hepatitis B surface antigen NON-REACTIVE NON-RE ACTIVE Lab Report: HEPATITIS B S AG W/, HIV-1/2 Agn/Mikaela/05601, RUBELLA IGG AB( ... - Serology rubella antibody, serum, IgG 1.06 Lab Report: Thyroid Stimulating Hormone (L), Wet Prep - Chemistry TSH 0.70 m[iU]/mL 0.36-3.74 Procedures Code Procedure Name Date Entry Date Standard Desc ription CPT-78902 Sono OB comp > 14 weeks 16:05:04 CDT 03/18 CPT-44085 Spec Collection and Handling Fee 10:45:40 C DT CPT-11616 Visit 10:45:40 CDT
--- OUTSIDE RECORDS SUMMARY | 2020-01-05 00:08 | XMS REPORT | Clinical Summary ---
Author Author Admin, Giuliana Vasquez Organization [employer] Address Unknown Phone Unavailable Allergies, Adverse Reactions, [...] use disorder NEED FOR PROPHYLACTIC VACCINATION WITH PWFWGFM-LPMCG-I UBELLA (MMR) VACCINE V06.4 Active Dionne Stewart MD Need for prophylactic vaccination with fzjewpu-jaxuw-bukasoh [MMR] vaccine Contraceptive management V25.9 Active Cintia sommer APRN Encounter for unspecified contraceptive management Medication List Medication Instructions Start Date Stop Date Generic Name NDC Status Provider Patient Instruction FLAGYL 250 MG TAB One tablet three times a day METRONIDAZOLE 82480254320 Active Cintia [employer] NUTTER UP Active CYCLOBENZAPRINE HCL 10 MG TABS 1 tablet by mouth three times daily as needed for muscle spasm/pain CYCLOBENZAPRINE HCL 66849475444 Active Cintia Pagan APRN Active CONCEPT DHA 53.5-38-1 MG ORAL CAPS one tab PO daily KQPVEL-PKJKS-TCRB-FA-OMEGA 3 18117922227 Active Dionne Stewart MD Active CVS 28-0.8 MG ORAL TABS VIT-FE FUMARATE-FA 45745849949 No Longer Active Dionne Stewart MD Active [...] 11 .0-15.0 platelet count 211 THOUSAND/UL 10*3/mm3 559-520 6374/07/24 mean platelet volume 8.5 fL 7.5-11.5 Blood type O Lab Report: ABO GROUP & RH TYPE, ANTIBOD Y SCREEN, RBCW/REFL I, CBC (IN ... - Lab chlamydia DNA probe NOT DETECTED NOT DETECTED Lab Report: ABO GROUP & RH TYPE, ANTIBOD Y SCREEN, RBCW/REFL I, CBC (IN ... - Microbiology Neisseria gonorrhoeae DNA probe NOT DETECTED NO T DETECTED Lab Report: Chlamydia/GC APTIMA/94905 - Lab chlamydia DNA probe NOT DETECTED NOT DETECTED Lab Report: Chlamydia/GC APTIMA/56092 - Microbiology Neisseria gonorrhoeae DNA probe NOT DETECTED NO T DETECTED Lab Report: Drug Abuse Pnl 10-50/55438, RPR (DX) W/REFL TITER & CONFIR - Serology rapid plasma reagin antibody titer NON-REACTIVE NON-REACTIVE Lab Report: HEPATITIS B S AG W/, HIV-1/2 Agn/Mikaela/36308, RUBELLA IGG AB( ... - Chemistry hepatitis B surface antigen NON-REACTIVE NON-RE ACTIVE Lab Report: HEPATITIS B S AG W/, HIV-1/2 Agn/Mikaela/14696, RUBELLA IGG AB( ... - Serology rubella antibody, serum, IgG 1.06 Lab Report: Thyroid Stimulating Hormone (L), Wet Prep - Chemistry TSH 0.70 m[iU]/mL 0.36-3.74 Lab Report: [facility] [place] - Chemistry human chorionic gonadotropin , urine, qualitative (urine test) Negative Negative Office Visit: Initial OB Visit - Blood b ank antibody screen, serum negative Rh antigen pos blood type with RH factor O Office Visit: Initial OB Visit - Parasitology Teacher ry Neisseria gonorrhoeae, genital culture negative protein, [...] Depo Provera 150 mg (Medroxyprogesterone) 08/30 16:06:30 PROCESS ENVIRONMENTAL TECHNICIAN CPT-57862 Abx/Therapy Injection 16:06:30 PROCESS ENVIRONMENTAL TECHNICIAN CPT-J1050 Depo Provera 150 mg (Medroxyprogesterone) 08/30 15:39:17 PROCESS ENVIRONMENTAL TECHNICIAN CPT-65437 Visit 15:01:38 CDT CPT-85268 Sono OB comp > 14 weeks 16:05:04 CDT 03/18 CPT-60265 Spec Collection and Handling Fee 10:45:40 C DT CPT-84599 Visit 10:45:40 CDT
--- OUTSIDE RECORDS SUMMARY | 2020-01-05 00:08 | XMS REPORT | Clinical Summary ---
Author Author Admin, Giuliana Vasquez Organization [employer] Address Unknown Phone Unavailable Allergies, Adverse Reactions, [...] use disorder NEED FOR PROPHYLACTIC VACCINATION WITH SLKSFTJ-WBUIL-V UBELLA (MMR) VACCINE V06.4 Active Dionne Stewart MD Need for prophylactic vaccination with vppbuns-gtymh-vfxvcgi [MMR] vaccine Medication List Medication Instructions Start Date Stop Date Generic Name NDC Status Provider Patient Instruction CVS 28-0.8 MG ORAL TABS PRE MINDY VIT-FE FUMARATE-FA 49215030091 Active Dionne Stewart MD Active Diagnostic Results [...] 11 .0-15.0 platelet count 211 THOUSAND/UL 10*3/mm3 303-402 1354/07/24 mean platelet volume 8.5 fL 7.5-11.5 Blood [...] Report: HEPATITIS B S AG W/, HIV-1/2 Agn/Mikaela/16333, RUBELLA IGG AB( ... - Chemistry hepatitis B surface antigen NON-REACTIVE NON-RE ACTIVE Lab Report: HEPATITIS B S AG W/, HIV-1/2 Agn/Mikaela/69050, RUBELLA IGG AB( ... - Serology rubella antibody, serum, IgG 1.06 Lab Report: Thyroid Stimulating Hormone (L), Wet Prep - Chemistry TSH 0.70 m[iU]/mL 0.36-3.74 Procedures Code Procedure Name Date Entry Date Standard Desc ription CPT-27863 Sono OB comp > 14 weeks 16:05:04 CDT 03/18 CPT-49617 Spec Collection and Handling Fee 10:45:40 C DT CPT-39170 Visit 10:45:40 CDT
--- OUTSIDE RECORDS SUMMARY | 2020-01-05 00:08 | XMS REPORT | Clinical Summary ---
Author Author Admin, Giuliana Flores Organization [facility] Address Unknown Phone Unavailable [...] use disorder NEED FOR PROPHYLACTIC VACCINATION WITH KUMELCQ-BTWJQ-Y UBELLA (MMR) VACCINE V06.4 Resolved Cintia Pagan APRN Need for prophylactic vaccination with bnajjmz-etlsh-gmzzamw [MMR] vaccine Contraceptive management V25.9 Resolved Taiwo Stewart MD Encounter for unspecified contraceptive management follow-up, routine V24.2 Resolved 12/31 Dionne Stewart MD Routine follow-up Vaginal discharge 623.5 Resolved Dionne Flores D Leukorrhea, not specified as infective Genital herpes 054.10 Active Dionne Stewart MD Genital herpes, unspecified 9 weeks gestation of V28.9 Active Xiao Brasher Encounter for unspecified screening of mothe r NEED FOR PROPHYLACTIC VACCINATION WITH MZWUVBO-DXZVZ-A UBELLA (MMR) VACCINE ICD-V06.4 Inactive Cintia Latasha COUNTY SUPERVISOR Contraceptive management ICD-V25.9 Inactive Dionne Stewart MD follow-up, routine ICD-V24.2 Inacti ve Dionne Stewart MD Vaginal discharge ICD-623.5 Inactive Dionne spencer MD care, delayed ICD-V23.7 Inactive Kristin taylor Latasha COUNTY SUPERVISOR Medication List Medication Instructions Start Date Stop Date Generic Name NDC Status Provider Patient Instruction FLAGYL 500 MG ORAL TABLET 1 tablet PO BID for 7 days METRONIDAZOLE 14182248932 Active Billie Active TYLENOL PM EXTRA STRENGTH 500-25 MG ORAL TABLET PRN 12/31 DIPHENHYDRAMINE-APAP (SLEEP) 19613451163 Active Dionne Stewart MD Active EQL FORMULA 28-0.8 MG ORAL TABLET 1 tablet daily 1 VIT-FE FUMARATE-FA 43614832537 Active Dionne Stewart MD Activ e CONCEPT DHA 53.5-38-1 MG ORAL CAPSULE one tab PO daily QFAVEN-TLUPW-DHBA-FA-OMEGA 3 28812983632 No Longer Active Dionne Stewart MD Active CYCLOBENZAPRINE HCL 10 MG ORAL TABLET 1 tablet by mout h three times daily as needed for muscle spasm/pain CYCLOBENZAPRINE HCL 54943229772 No Longer Active Dionne Stewart MD Active TRI-SPRINTEC 0.18/0.215/0.25 MG-35 MCG ORAL TABLET 1 po qd a s directed NORGESTIM-ETH ESTRAD TRIPHASIC 01582762862 N o Longer Active Dionne Stewart MD Active FLAGYL 250 MG ORAL TABLET One tablet three times a day METRONIDAZOLE 96406597777 No Longer Active Cintia Pagan APRN Active CVS 28-0.8 MG ORAL TABLET 04/10 VIT-FE FUMARATE-FA 18179540226 No Longer Active Dionne Stewart MD Active CVS 28-0.8 MG ORAL TABLET 04/10 CVS 28-0.8 MG ORAL TABLET VIT-FE FUMARATE-FA Inactive TRI-SPRINTEC 0.18/0.215/0.25 MG-35 MCG ORAL TABLET 1 po qd a s directed TRI-SPRINTEC 0.18/0.215/0.25 MG-35 MCG ORAL TABL ET 471626 NORGESTIM-ETH ESTRAD TRIPHASIC Inactive CYCLOBENZAPRINE HCL 10 MG ORAL TABLET 1 tablet by mout h three times daily as needed for muscle spasm/pain CYCLOBENZAP RINE HCL 10 MG ORAL TABLET 534447 CYCLOBENZAPRINE HCL Inactive CONCEPT DHA 53.5-38-1 MG ORAL CAPSULE one tab PO daily CONCEPT DHA 53.5-38-1 MG ORAL CAPSULE BAAUAU-DRKGE-HAAH-FA-O BILLIE 3 Inactive FLAGYL 250 MG ORAL TABLET One tablet three times a day FLAGYL 250 MG ORAL TABLET 528946 METRONIDAZOLE Inactive Immunizations Vaccine Administration Date Value [...] 11 .0-15.0 platelet count 226 THOUSAND/UL 10*3/mm3 268-035 8297/05/11 mean platelet volume 10.3 fL 7.5-12.5 Lab [...] UC Encounters Code Encounter Date Provider Facility CPT-01381 Level 3 Est. Patient 17:31:05 STEM CRUSHER Cintia sommer COUNTY SUPERVISOR [facility] Procedures Code Procedure Name Date Entry Date Standard Desc ription CPT-42413J Sono OB comp <14 weeks ([place] Only) - X RAY USE ONLY 12:09:02 CDT CPT-19621 Spec Collection and Handling Fee 10:11:50 C DT CPT-94622 Visit 10:11:49 CDT CPT-J1050 Depo Provera 150 mg (Medroxyprogesterone) 08/30 16:06:30 STEM CRUSHER CPT-54598 Abx/Therapy Injection 16:06:30 STEM CRUSHER CPT-J1050 Depo Provera 150 mg (Medroxyprogesterone) 08/30 15:39:17 STEM CRUSHER CPT-22302 Visit 15:01:38 CDT CPT-70414 Sono OB comp > 14 weeks 16:05:04 CDT 03/18 CPT-72095 Spec Collection and Handling Fee 10:45:40 C DT CPT-21436 Visit 10:45:40 CDT
--- OUTSIDE RECORDS SUMMARY | 2020-01-05 00:08 | XMS REPORT | Clinical Summary ---
Author Author Admin, Giuliana Flores Organization [employer] Address Unknown Phone Unavailable Allergies, Adverse Reactions, [...] use disorder NEED FOR PROPHYLACTIC VACCINATION WITH FUGVBNB-JRLGB-X UBELLA (MMR) VACCINE V06.4 Resolved Cintia Pagan APRN Need for prophylactic vaccination with yzkyurl-wfjyv-obzkthh [MMR] vaccine Contraceptive management V25.9 Active Cintia sommer EDUCATIONAL ADVISER Encounter for unspecified contraceptive management follow-up, routine V24.2 Active 09/08 Cintia Pagan EDUCATIONAL ADVISER Routine follow-up Vaginal discharge 623.5 Active Cintia Pagan APRN Leukorrhea, not specified as infective Supervision of other normal ICD-V22.1 7 Inactive Cintia Pagan APRN care, delayed ICD-V23.7 Inactive Kristin Pagan EDUCATIONAL ADVISER NEED FOR PROPHYLACTIC VACCINATION WITH WMLWMWW-VTSAP-I UBELLA (MMR) VACCINE ICD-V06.4 Inactive Cintia Pagan EDUCATIONAL ADVISER Medication List Medication Instructions Start Date Stop Date Generic Name NDC Status Provider Patient Instruction FLAGYL 250 MG TAB One tablet three times a day METRONIDAZOLE 96270086037 No Longer Active Cintia Pagan APRN Active CYCLOBENZAPRINE HCL 10 MG TABS 1 tablet by mouth three times daily as needed for muscle spasm/pain CYCLOBENZAPRINE HCL 63559795801 Active Cintia Pagan EDUCATIONAL ADVISER Active CONCEPT DHA 53.5-38-1 MG ORAL CAPS one tab PO daily EPHAZH-MTTEG-IVXH-FA-OMEGA 3 11921379484 Active Dionne Stewart MD Active CVS 28-0.8 MG ORAL TABS VIT-FE FUMARATE-FA 36069262063 No Longer Active Dionne Stewart MD Active CVS 28-0.8 MG ORAL TABS CVS 28-0.8 MG ORAL TABS VIT-FE FUMARATE-FA Inactive FLAGYL 250 MG TAB One tablet three times a day FLAGYL 250 MG TAB 816310 METRONIDAZOLE Inactive Immunizations Vaccine Administration Date Value [...] 11 .0-15.0 platelet count 211 THOUSAND/UL 10*3/mm3 115-603 6713/07/24 mean platelet volume 8.5 fL 7.5-11.5 Blood type O Lab Report: ABO GROUP & RH TYPE, ANTIBOD Y SCREEN, RBCW/REFL I, CBC (IN ... - Lab chlamydia DNA probe NOT DETECTED NOT DETECTED Lab Report: ABO GROUP & RH TYPE, ANTIBOD Y SCREEN, RBCW/REFL I, CBC (IN ... - Microbiology Neisseria gonorrhoeae DNA probe NOT DETECTED NO T DETECTED Lab Report: Chlamydia/GC APTIMA/99367 - Lab chlamydia DNA probe NOT DETECTED NOT DETECTED Lab Report: Chlamydia/GC APTIMA/94059 - Microbiology Neisseria gonorrhoeae DNA probe NOT DETECTED NO T DETECTED Lab Report: Drug Abuse Pnl 10-50/16467, RPR (DX) W/REFL TITER & CONFIR - Serology rapid plasma reagin antibody titer NON-REACTIVE NON-REACTIVE Lab Report: HEPATITIS B S AG W/, HIV-1/2 Agn/Mikaela/66817, RUBELLA IGG AB( ... - Chemistry hepatitis B surface antigen NON-REACTIVE NON-RE ACTIVE Lab Report: HEPATITIS B S AG W/, HIV-1/2 Agn/Mikaela/09858, RUBELLA IGG AB( ... - Serology rubella antibody, serum, IgG 1.06 Lab Report: Thyroid Stimulating Hormone (L), Wet Prep - Chemistry TSH 0.70 m[iU]/mL 0.36-3.74 Lab Report: [facility] [place] - Chemistry human chorionic gonadotropin , urine, qualitative (urine test) Negative Negative Office Visit: Initial OB Visit - Blood b ank antibody screen, serum negative Rh antigen pos blood type with RH factor O Office Visit: Initial OB Visit - Customer Experience Professional ry Neisseria gonorrhoeae, genital culture negative protein, [...] N Encounters Code Encounter Date Provider Facility CPT-57863 Level 3 Est. Patient 17:31:05 STAFF EDUCATOR Cintia Al [facility] Procedures Code Procedure Name Date Entry Date Standard Desc ription CPT-J1050 Depo Provera 150 mg (Medroxyprogesterone) 08/30 16:06:30 STAFF EDUCATOR CPT-16112 Abx/Therapy Injection 16:06:30 STAFF EDUCATOR CPT-J1050 Depo Provera 150 mg (Medroxyprogesterone) 08/30 15:39:17 STAFF EDUCATOR CPT-21983 Visit 15:01:38 CDT CPT-10706 Sono OB comp > 14 weeks 16:05:04 CDT 03/18 CPT-63676 Spec Collection and Handling Fee 10:45:40 C DT CPT-52042 Visit 10:45:40 CDT
--- OUTSIDE RECORDS SUMMARY | 2020-01-05 00:09 | XMS REPORT | Clinical Summary ---
Author Author Admin, Giuliana Vasquez Organization [employer] Address Unknown Phone Unavailable Allergies, Adverse Reactions, [...] use disorder NEED FOR PROPHYLACTIC VACCINATION WITH ZCHAIJU-QAALJ-V UBELLA (MMR) VACCINE V06.4 Active Dionne Stewart MD Need for prophylactic vaccination with zrmlqld-xhsph-amesyla [MMR] vaccine Medication List Medication Instructions Start Date Stop Date Generic Name NDC Status Provider Patient Instruction CVS 28-0.8 MG ORAL TABS PRE VIT-FE FUMARATE-FA 11581944882 Active Dionne Stewart MD Active Immunizations Vaccine [...] 11 .0-15.0 platelet count 211 THOUSAND/UL 10*3/mm3 523-175 6841/07/24 mean platelet volume 8.5 fL 7.5-11.5 Blood [...] T DETECTED Lab Report: Drug Abuse Pnl 1050/31225, RPR (DX) W/REFL TITER & CONFIR - Serology rapid plasma reagin antibody titer NON-REACTIVE NON-REACTIVE Lab Report: HEPATITIS B S AG W/, HIV-1/2 Agn/Mikaela/87787, RUBELLA IGG AB( ... - Chemistry hepatitis B surface antigen NON-REACTIVE NON-RE ACTIVE Lab Report: HEPATITIS B S AG W/, HIV-1/2 Agn/Mikaela/27263, RUBELLA IGG AB( ... - Serology rubella antibody, serum, IgG 1.06 Lab Report: Thyroid Stimulating Hormone (L), Wet Prep - Chemistry TSH 0.70 m[iU]/mL 0.36-3.74 Office Visit: Initial OB Visit - Blood b ank antibody screen, serum negative Rh antigen pos blood type with RH factor O Office Visit: Initial OB Visit - Abrasive Grinder ry Neisseria gonorrhoeae, genital culture negative protein, [...] Name Date Entry Date Standard Desc ription CPT-30607 Sono OB comp > 14 weeks 16:05:04 CDT 03/18 CPT-09284 Spec Collection and Handling Fee 10:45:40 C DT CPT-62269 Visit 10:45:40 CDT
--- OUTSIDE RECORDS SUMMARY | 2020-01-05 00:09 | XMS REPORT | Clinical Summary ---
Author Author Admin, Giuliana Flores Organization [employer] Address Unknown Phone Unavailable Allergies, Adverse Reactions, [...] use disorder NEED FOR PROPHYLACTIC VACCINATION WITH XOKMLKK-ZTBNY-D UBELLA (MMR) VACCINE V06.4 Resolved Cintia Pagan APRN Need for prophylactic vaccination with gfiuivq-iiblj-emejemb [MMR] vaccine Contraceptive management V25.9 Active Cintia sommer PRESSURE WELDER Encounter for unspecified contraceptive management follow-up, routine V24.2 Active 09/08 Cintia Pagan APRN Routine follow-up Vaginal discharge 623.5 Active Cintia Pagan APRN Leukorrhea, not specified as infective Supervision of other normal ICD-V22.1 7 Inactive Cintia Pagan APRN care, delayed ICD-V23.7 Inactive Kristin Pagan PRESSURE WELDER NEED FOR PROPHYLACTIC VACCINATION WITH VMAWJBT-ZZSYU-D UBELLA (MMR) VACCINE ICD-V06.4 Inactive Cintia Pagan PRESSURE WELDER Medication List Medication Instructions Start Date Stop Date Generic Name NDC Status Provider Patient Instruction FLAGYL 250 MG TAB One tablet three times a day METRONIDAZOLE 36312279097 No Longer Active Cintia Pagan APRN Active CYCLOBENZAPRINE HCL 10 MG TABS 1 tablet by mouth three times daily as needed for muscle spasm/pain CYCLOBENZAPRINE HCL 70260733606 Active Cintia Pagan PRESSURE WELDER Active CONCEPT DHA 53.5-38-1 MG ORAL CAPS one tab PO daily UUFNCI-GLMEK-JQAC-FA-OMEGA 3 21123456803 Active Dionne Stewart MD Active CVS 28-0.8 MG ORAL TABS VIT-FE FUMARATE-FA 67915487884 No Longer Active Dionne Stewart MD Active CVS 28-0.8 MG ORAL TABS CVS 28-0.8 MG ORAL TABS VIT-FE FUMARATE-FA Inactive FLAGYL 250 MG TAB One tablet three times a day FLAGYL 250 MG TAB 104564 METRONIDAZOLE Inactive Immunizations Vaccine Administration Date Value [...] 11 .0-15.0 platelet count 211 THOUSAND/UL 10*3/mm3 888-776 4090/07/24 mean platelet volume 8.5 fL 7.5-11.5 Blood type O Lab Report: ABO GROUP & RH TYPE, ANTIBOD Y SCREEN, RBCW/REFL I, CBC (IN ... - Lab chlamydia DNA probe NOT DETECTED NOT DETECTED Lab Report: ABO GROUP & RH TYPE, ANTIBOD Y SCREEN, RBCW/REFL I, CBC (IN ... - Microbiology Neisseria gonorrhoeae DNA probe NOT DETECTED NO T DETECTED Lab Report: Chlamydia/GC APTIMA/76946 - Lab chlamydia DNA probe NOT DETECTED NOT DETECTED Lab Report: Chlamydia/GC APTIMA/54393 - Microbiology Neisseria gonorrhoeae DNA probe NOT DETECTED NO T DETECTED Lab Report: Drug Abuse Pnl 10-50/62911, RPR (DX) W/REFL TITER & CONFIR - Serology rapid plasma reagin antibody titer NON-REACTIVE NON-REACTIVE Lab Report: HEPATITIS B S AG W/, HIV-1/2 Agn/Mikaela/20641, RUBELLA IGG AB( ... - Chemistry hepatitis B surface antigen NON-REACTIVE NON-RE ACTIVE Lab Report: HEPATITIS B S AG W/, HIV-1/2 Agn/Mikaela/78564, RUBELLA IGG AB( ... - Serology rubella antibody, serum, IgG 1.06 Lab Report: Thyroid Stimulating Hormone (L), Wet Prep - Chemistry TSH 0.70 m[iU]/mL 0.36-3.74 Lab Report: [facility] [place] - Chemistry human chorionic gonadotropin , urine, qualitative (urine test) Negative Negative Office Visit: Initial OB Visit - Blood b ank antibody screen, serum negative Rh antigen pos blood type with RH factor O Office Visit: Initial OB Visit - Barrel Burner ry Neisseria gonorrhoeae, genital culture negative protein, [...] N Encounters Code Encounter Date Provider Facility CPT-77479 Level 3 Est. Patient 17:31:05 APPLICATION PROGRAMMER ANALYST Cintia Al [facility] Procedures Code Procedure Name Date Entry Date Standard Desc ription CPT-J1050 Depo Provera 150 mg (Medroxyprogesterone) 08/30 16:06:30 APPLICATION PROGRAMMER ANALYST CPT-02428 Abx/Therapy Injection 16:06:30 APPLICATION PROGRAMMER ANALYST CPT-J1050 Depo Provera 150 mg (Medroxyprogesterone) 08/30 15:39:17 APPLICATION PROGRAMMER ANALYST CPT-05002 Visit 15:01:38 CDT CPT-72658 Sono OB comp > 14 weeks 16:05:04 CDT 03/18 CPT-43471 Spec Collection and Handling Fee 10:45:40 C DT CPT-55002 Visit 10:45:40 CDT
--- OUTSIDE RECORDS SUMMARY | 2020-01-05 00:09 | XMS REPORT | Clinical Summary ---
Author Author Admin, Giuliana Flores Organization [facility] Address Unknown Phone Unavailable Allergies, Adverse Reactions, [...] use disorder NEED FOR PROPHYLACTIC VACCINATION WITH ICXTOVC-VAGLF-N UBELLA (MMR) VACCINE V06.4 Resolved Cintia Pagan APRN Need for prophylactic vaccination with ppmbdkn-efhwx-rusnldb [MMR] vaccine Contraceptive management V25.9 Resolved Taiwo [...] screening care, delayed ICD-V23.7 Inactive Kristin Pagan TARE MAN NEED FOR PROPHYLACTIC VACCINATION WITH SGBHHVC-XRPJQ-F UBELLA (MMR) VACCINE ICD-V06.4 Inactive Cintia Pagan TARE MAN Contraceptive management ICD-V25.9 Inactive Dionne Stewart MD follow-up, routine ICD-V24.2 Inacti ve Dionne Stewart MD Vaginal discharge ICD-623.5 Inactive Dionne spencer MD Medication List Medication Instructions Start Date Stop Date Generic Name NDC Status Provider Patient Instruction FERROUS SULFATE 325 (65 FE) MG ORAL TABLET 1 tablet daily 5 FERROUS SULFATE 00256692195 Active Estela Clifton LPN Active LORATADINE 10 MG ORAL TABLET 1 tablet by mouth daily LORATADINE 78641504235 Active Dionne Stewart MD Active TYLENOL PM EXTRA STRENGTH 500-25 MG ORAL TABLET PRN 12/31 DIPHENHYDRAMINE-APAP (SLEEP) 26679476350 No Longer Active Dionne Stewart MD Active CONCEPT DHA 53.5-38-1 MG ORAL CAPSULE one tab PO daily SMVADT-OLZHV-SYDN-FA-OMEGA 3 67114157308 Active Dionne Stewart MD Active FLAGYL 500 MG ORAL TABLET 1 tablet PO BID for 7 days 2 METRONIDAZOLE 89001993775 No Longer Active Dionne Stewart MD Active EQL FORMULA 28-0.8 MG ORAL TABLET 1 tablet daily 1 VIT-FE FUMARATE-FA 96353944317 No Longer Active Dionne Stewart MD A ctive CONCEPT DHA 53.5-38-1 MG ORAL CAPSULE one tab PO daily JRGDOI-XTUCF-BLNF-FA-OMEGA 3 00991126436 No Longer Active Dionne Stewart MD Active CYCLOBENZAPRINE HCL 10 MG ORAL TABLET 1 tablet by mout h three times daily as needed for muscle spasm/pain CYCLOBENZAPRINE HCL 14494020162 No Longer Active Dionne Stewart MD Active TRI-SPRINTEC 0.18/0.215/0.25 MG-35 MCG ORAL TABLET 1 po qd a s directed NORGESTIM-ETH ESTRAD TRIPHASIC 27792533246 N o Longer Active Dionne Stewart MD Active FLAGYL 250 MG ORAL TABLET One tablet three times a day METRONIDAZOLE 06629085506 No Longer Active Cintia Pagan APRN Active [facility] 28-0.8 MG ORAL TABLET 04/10 VIT-FE FUMARATE-FA 96757636214 No Longer Active Dionne Stewart MD Active CVS 28-0.8 MG ORAL TABLET 04/10 CVS 28-0.8 MG ORAL TABLET VIT-FE FUMARATE-FA Inactive TRI-SPRINTEC 0.18/0.215/0.25 MG-35 MCG ORAL TABLET 1 po qd a s directed TRI-SPRINTEC 0.18/0.215/0.25 MG-35 MCG ORAL TABL ET 641680 NORGESTIM-ETH ESTRAD TRIPHASIC Inactive CYCLOBENZAPRINE HCL 10 MG ORAL TABLET 1 tablet by mout h three times daily as needed for muscle spasm/pain CYCLOBENZAP RINE HCL 10 MG ORAL TABLET 230939 CYCLOBENZAPRINE HCL Inactive CONCEPT DHA 53.5-38-1 MG ORAL CAPSULE one tab PO daily CONCEPT DHA 53.5-38-1 MG ORAL CAPSULE GITVYG-XUEOV-HJQT-FA-O BILLIE 3 Inactive FLAGYL 500 MG ORAL TABLET 1 tablet PO BID for 7 days 2 FLAGYL 500 MG ORAL TABLET 315942 METRONIDAZOLE Inactive TYLENOL PM EXTRA STRENGTH 500-25 MG ORAL TABLET PRN 12/31 TYLENOL PM EXTRA STRENGTH 500-25 MG ORAL TABLET 7188937 DIPHEN HYDRAMINE-APAP (SLEEP) Inactive FLAGYL 250 MG ORAL TABLET One tablet three times a day FLAGYL 250 MG ORAL TABLET 365202 METRONIDAZOLE Inactive Immunizations Vaccine Administration Date Value [...] 11 .0-15.0 platelet count 226 THOUSAND/UL 10*3/mm3 161-370 7607/05/11 mean platelet volume 10.3 fL 7.5-12.5 Lab [...] SCREEN, RBCW/REFL I , Drug Abuse Pnl 1050/31308 - Blood bank antibody screen, serum NO ANTIBODIES DETECTED Lab Report: CBC, [id number] Gluc cari-1spec - Hematology leukocyte count, blood [...] N Encounters Code Encounter Date Provider Facility CPT-65435 Level 3 Est. Patient 17:31:05 MOUSTAPHA sommer APRN [facility] Procedures Code Procedure Name Date Entry Date Standard Desc ription CPT-78010 Visit 11:14:16 CDT CPT-57713 Visit 10:54:00 CDT CPT-05864 Visit 16:24:31 CDT CPT-57172 Sono OB comp > 14 weeks - XRAY USE ONLY 12:01:14 CDT CPT-13457 Visit 15:58:08 CDT CPT-52748 Visit 12:16:56 CDT CPT-65013J Sono OB comp <14 weeks (Pat Only) - X RAY USE ONLY 12:09:02 CDT CPT-69633 Spec Collection and Handling Fee 10:11:50 C DT CPT-74000 Visit 10:11:49 CDT CPT-J1050 Depo Provera 150 mg (Medroxyprogesterone) 08/30 16:06:30 BUSINESS DEVELOPMENT CPT-06156 Abx/Therapy Injection 16:06:30 BUSINESS DEVELOPMENT CPT-J1050 Depo Provera 150 mg (Medroxyprogesterone) 08/30 15:39:17 BUSINESS DEVELOPMENT CPT-31346 Visit 15:01:38 CDT CPT-73214 Sono OB comp > 14 weeks 16:05:04 CDT 03/18 CPT-74515 Spec Collection and Handling Fee 10:45:40 C DT CPT-76923 Visit 10:45:40 CDT
--- OUTSIDE RECORDS SUMMARY | 2020-01-05 00:09 | XMS REPORT | Clinical Summary ---
Author Author Admin, Giuliana Flores Organization [facility] Address Unknown Phone Unavailable Allergies, Adverse Reactions, Alerts Allergy Name Reaction Description Start Date Severity Status Pr ovider No Known Allergies Megan Wies Conditions or Problems Problem Name Problem Code [...] use disorder NEED FOR PROPHYLACTIC VACCINATION WITH ELVHXBW-XABSK-K UBELLA (MMR) VACCINE V06.4 Resolved Cintia Pagan APRN Need for prophylactic vaccination with ougflhu-aqiqc-gtknfhy [MMR] vaccine Contraceptive management V25.9 Resolved Taiwo [...] LPN Abnormal finding on antenata l screening NEED FOR PROPHYLACTIC VACCINATION WITH LLSVPGR-HXFCZ-Q UBELLA (MMR) VACCINE ICD-V06.4 Inactive Cintia Pagan APRN Contraceptive management ICD-V25.9 Inactive Dionne Stewart MD follow-up, routine ICD-V24.2 Inacti ve Dionne Stewart MD Vaginal discharge ICD-623.5 Inactive Dionne spencer MD care, delayed ICD-V23.7 Inactive Kristin Pagan APRN Medication List Medication Instructions Start Date Stop Date Generic Name NDC Status Provider Patient Instruction FERROUS SULFATE 325 (65 FE) MG ORAL TABLET 1 tablet daily 5 FERROUS SULFATE 14969656813 Active Estela Clifton LPN Active LORATADINE 10 MG ORAL TABLET 1 tablet by mouth daily LORATADINE 92400124191 Active Dionne Stewart MD Active TYLENOL PM EXTRA STRENGTH 500-25 MG ORAL TABLET PRN 12/31 DIPHENHYDRAMINE-APAP (SLEEP) 57137934510 No Longer Active Dionne Stewart MD Active CONCEPT DHA 53.5-38-1 MG ORAL CAPSULE one tab PO daily GPDYLR-CIKKG-BHAG-FA-OMEGA 3 98825819073 Active Dionne Stewart MD Active FLAGYL 500 MG ORAL TABLET 1 tablet PO BID for 7 days 2 METRONIDAZOLE 22977341475 No Longer Active Dionne Stewart MD Active EQL FORMULA 28-0.8 MG ORAL TABLET 1 tablet daily 1 VIT-FE FUMARATE-FA 40836961431 No Longer Active Dionne Stewart MD A ctive CONCEPT DHA 53.5-38-1 MG ORAL CAPSULE one tab PO daily YUTHVD-WMUDZ-JBQS-FA-OMEGA 3 66387235811 No Longer Active Dionne Stewart MD Active CYCLOBENZAPRINE HCL 10 MG ORAL TABLET 1 tablet by mout h three times daily as needed for muscle spasm/pain CYCLOBENZAPRINE HCL 63808248450 No Longer Active Dionne Stewart MD Active TRI-SPRINTEC 0.18/0.215/0.25 MG-35 MCG ORAL TABLET 1 po qd a s directed NORGESTIM-ETH ESTRAD TRIPHASIC 98618608208 N o Longer Active Dionne Stewart MD Active FLAGYL 250 MG ORAL TABLET One tablet three times a day METRONIDAZOLE 30384962240 No Longer Active Cintia Pagan APRN Active [facility] 28-0.8 MG ORAL TABLET 04/10 VIT-FE FUMARATE-FA 70123711890 No Longer Active Dionne Stewart MD Active CVS 28-0.8 MG ORAL TABLET 04/10 CVS 28-0.8 MG ORAL TABLET VIT-FE FUMARATE-FA Inactive TRI-SPRINTEC 0.18/0.215/0.25 MG-35 MCG ORAL TABLET 1 po qd a s directed TRI-SPRINTEC 0.18/0.215/0.25 MG-35 MCG ORAL TABL ET 849767 NORGESTIM-ETH ESTRAD TRIPHASIC Inactive CYCLOBENZAPRINE HCL 10 MG ORAL TABLET 1 tablet by mout h three times daily as needed for muscle spasm/pain CYCLOBENZAP RINE HCL 10 MG ORAL TABLET 031582 CYCLOBENZAPRINE HCL Inactive CONCEPT DHA 53.5-38-1 MG ORAL CAPSULE one tab PO daily CONCEPT DHA 53.5-38-1 MG ORAL CAPSULE LBPVWF-FBKJS-XYVP-FA-O BILLIE 3 Inactive FLAGYL 500 MG ORAL TABLET 1 tablet PO BID for 7 days 2 FLAGYL 500 MG ORAL TABLET 515165 METRONIDAZOLE Inactive TYLENOL PM EXTRA STRENGTH 500-25 MG ORAL TABLET PRN 12/31 TYLENOL PM EXTRA STRENGTH 500-25 MG ORAL TABLET 1434626 DIPHEN HYDRAMINE-APAP (SLEEP) Inactive FLAGYL 250 MG ORAL TABLET One tablet three times a day FLAGYL 250 MG ORAL TABLET 676488 METRONIDAZOLE Inactive Immunizations Vaccine Administration Date Value [...] 11 .0-15.0 platelet count 226 THOUSAND/UL 10*3/mm3 147-595 9589/05/11 mean platelet volume 10.3 fL 7.5-12.5 Lab [...] SCREEN, RBCW/REFL I , Drug Abuse Pnl 1050/99896 - Blood bank antibody screen, serum NO ANTIBODIES DETECTED Lab Report: CBC, [id number] Gluc cari-1spec - Hematology leukocyte count, blood [...] N Encounters Code Encounter Date Provider Facility CPT-65865 Level 3 Est. Patient 17:31:05 MOUSTAPHA sommer APRN [facility] Procedures Code Procedure Name Date Entry Date Standard Desc ription CPT-85178 Visit 11:14:16 CDT CPT-80220 Visit 10:54:00 CDT CPT-67387 Visit 16:24:31 CDT CPT-48202 Sono OB comp > 14 weeks - XRAY USE ONLY 12:01:14 CDT CPT-40600 Visit 15:58:08 CDT CPT-85876 Visit 12:16:56 CDT CPT-05466R Sono OB comp <14 weeks (Pat Only) - X RAY USE ONLY 12:09:02 CDT CPT-79238 Spec Collection and Handling Fee 10:11:50 C DT CPT-93780 Visit 10:11:49 CDT CPT-J1050 Depo Provera 150 mg (Medroxyprogesterone) 08/30 16:06:30 DISTRICT CLAIMS MANAGER CPT-51783 Abx/Therapy Injection 16:06:30 DISTRICT CLAIMS MANAGER CPT-J1050 Depo Provera 150 mg (Medroxyprogesterone) 08/30 15:39:17 DISTRICT CLAIMS MANAGER CPT-59241 Visit 15:01:38 CDT CPT-86240 Sono OB comp > 14 weeks 16:05:04 CDT 03/18 CPT-12182 Spec Collection and Handling Fee 10:45:40 C DT CPT-32981 Visit 10:45:40 CDT
--- OUTSIDE RECORDS SUMMARY | 2020-01-05 00:09 | XMS REPORT | Clinical Summary ---
Author Author Admin, Giuliana Vasquez Organization [facility] Address Unknown Phone Unavailable Allergies, Adverse [...] use disorder NEED FOR PROPHYLACTIC VACCINATION WITH GEATYPZ-GWDCF-U UBELLA (MMR) VACCINE V06.4 Active Dionne Stewart MD Need for prophylactic vaccination with qimznyr-topab-hbppzfn [MMR] vaccine Medication List Medication Instructions Start Date Stop Date Generic Name NDC Status Provider Patient Instruction CVS 28-0.8 MG ORAL TABS PRE VIT-FE FUMARATE-FA 03969969272 Active Dionne Stewart MD Active Immunizations Vaccine [...] 11 .0-15.0 platelet count 211 THOUSAND/UL 10*3/mm3 500-456 5084/07/24 mean platelet volume 8.5 fL 7.5-11.5 Blood [...] T DETECTED Lab Report: Drug Abuse Pnl 1050/68084, RPR (DX) W/REFL TITER & CONFIR - Serology rapid plasma reagin antibody titer NON-REACTIVE NON-REACTIVE Lab Report: HEPATITIS B S AG W/, HIV-1/2 Agn/Mikaela/65020, RUBELLA IGG AB( ... - Chemistry hepatitis B surface antigen NON-REACTIVE NON-RE ACTIVE Lab Report: HEPATITIS B S AG W/, HIV-1/2 Agn/Mikaela/21468, RUBELLA IGG AB( ... - Serology rubella antibody, serum, IgG 1.06 Lab Report: Thyroid Stimulating Hormone (L), Wet Prep - Chemistry TSH 0.70 m[iU]/mL 0.36-3.74 Office Visit: Initial OB Visit - Blood b ank antibody screen, serum negative Rh antigen pos blood type with RH factor O Office Visit: Initial OB Visit - Bow Rehairer ry Neisseria gonorrhoeae, genital culture negative protein, [...] Name Date Entry Date Standard Desc ription CPT-23737 Sono OB comp > 14 weeks 16:05:04 CDT 03/18 CPT-33110 Spec Collection and Handling Fee 10:45:40 C DT CPT-07916 Visit 10:45:40 CDT
--- OUTSIDE RECORDS SUMMARY | 2020-01-05 00:09 | XMS REPORT | Clinical Summary ---
Author Author Admin, Giuliana Vasquez Organization [facility] Address Unknown Phone Unavailable Allergies, Adverse Reactions, [...] use disorder NEED FOR PROPHYLACTIC VACCINATION WITH ZEEIWXL-JSMEH-R UBELLA (MMR) VACCINE V06.4 Active Dionne Stewart MD Need for prophylactic vaccination with nftjjcu-kjmnf-fdthwdn [MMR] vaccine Medication List Medication Instructions Start Date Stop Date Generic Name NDC Status Provider Patient Instruction CONCEPT DHA 53.5-38-1 MG ORAL CAPS one tab PO daily CZSVNJ-ZFCEJ-IHWZ-FA-OMEGA 3 05070914009 Active Dionne Stewart MD Active CVS 28-0.8 MG ORAL TABS VIT-FE FUMARATE-FA 89647142349 No Longer Active Dionne Stewart MD Active [...] 11 .0-15.0 platelet count 211 THOUSAND/UL 10*3/mm3 117-986 5739/07/24 mean platelet volume 8.5 fL 7.5-11.5 Blood [...] T DETECTED Lab Report: Drug Abuse Pnl 10-50/97105, RPR (DX) W/REFL TITER & CONFIR - Serology rapid plasma reagin antibody titer NON-REACTIVE NON-REACTIVE Lab Report: HEPATITIS B S AG W/, HIV-1/2 Agn/Mikaela/69567, RUBELLA IGG AB( ... - Chemistry hepatitis B surface antigen NON-REACTIVE NON-RE ACTIVE Lab Report: HEPATITIS B S AG W/, HIV-1/2 Agn/Mikaela/48903, RUBELLA IGG AB( ... - Serology rubella antibody, serum, IgG 1.06 Lab Report: Thyroid Stimulating Hormone (L), Wet Prep - Chemistry TSH 0.70 m[iU]/mL 0.36-3.74 Office Visit: Initial OB Visit - Blood b ank antibody screen, serum negative Rh antigen pos blood type with RH factor O Office Visit: Initial OB Visit - Sales Associate Cashier ry Neisseria gonorrhoeae, genital culture negative protein, [...] Name Date Entry Date Standard Desc ription CPT-72206 Visit 15:01:38 CDT CPT-94337 Sono OB comp > 14 weeks 16:05:04 CDT 03/18 CPT-27216 Spec Collection and Handling Fee 10:45:40 C DT CPT-99365 Visit 10:45:40 CDT
--- OUTSIDE RECORDS SUMMARY | 2020-01-05 00:09 | XMS REPORT | Clinical Summary ---
Author Author Admin, Giuliana Flores Organization [facility] Address Unknown Phone Unavailable Allergies, Adverse Reactions, Alerts Allergy Name Reaction Description Start Date Severity Status Pr ovider No Known Allergies Amanad R obb RMA Conditions or Problems Problem Name Problem Code Onset Date Status Entry Date Provider Comment Standard Description Annotate Supervision of other normal V22.1 Resolved Cintia Pagan ARCHIVIST POLITICAL HISTORY Supervision of other normal Supervision of other normal V22.1 Active Dionne Stewart MD Supervision of other normal care, delayed V23.7 Resolved Cintia flores APRN Supervision of high-risk : insufficient care Drug abuse, hx of V15.89 Active Dionne Stewart MD Other specified personal history presenting hazards to health Tobacco abuse, gestational 305.1 Active Nilda Stewart MD Tobacco use disorder NEED FOR PROPHYLACTIC VACCINATION WITH QXNIRTN-WNOLZ-B UBELLA (MMR) VACCINE V06.4 Resolved Cintia Pagan APRN Need for prophylactic vaccination with limxmxf-jumrf-ckjillf [MMR] vaccine Contraceptive management V25.9 Resolved Taiwo [...] r care, delayed ICD-V23.7 Inactive Kristin Pagan ARCHIVIST POLITICAL HISTORY NEED FOR PROPHYLACTIC VACCINATION WITH INKFKEY-FEJAO-A UBELLA (MMR) VACCINE ICD-V06.4 Inactive Cintia Pagan ARCHIVIST POLITICAL HISTORY Contraceptive management ICD-V25.9 Inactive Dionne Stewart MD follow-up, routine ICD-V24.2 Inacti ve Dionne Stewart MD Vaginal discharge ICD-623.5 Inactive Dionne spencer MD Medication List Medication Instructions Start Date Stop Date Generic Name NDC Status Provider Patient Instruction FLAGYL 500 MG ORAL TABLET 1 tablet PO BID for 7 days METRONIDAZOLE 13804997540 Active Billie Active TYLENOL PM EXTRA STRENGTH 500-25 MG ORAL TABLET PRN 12/31 DIPHENHYDRAMINE-APAP (SLEEP) 04639480993 Active Dionne Stewart MD Active EQL FORMULA 28-0.8 MG ORAL TABLET 1 tablet daily 1 VIT-FE FUMARATE-FA 94178987214 Active Dionne Stewart MD Activ e CONCEPT DHA 53.5-38-1 MG ORAL CAPSULE one tab PO daily EONZGG-TAJJQ-UQIX-FA-OMEGA 3 14468313621 No Longer Active Dionne Stewart MD Active CYCLOBENZAPRINE HCL 10 MG ORAL TABLET 1 tablet by mout h three times daily as needed for muscle spasm/pain CYCLOBENZAPRINE HCL 19076815329 No Longer Active Dionne Stewart MD Active TRI-SPRINTEC 0.18/0.215/0.25 MG-35 MCG ORAL TABLET 1 po qd a s directed NORGESTIM-ETH ESTRAD TRIPHASIC 69244082109 N o Longer Active Dionne Stewart MD Active FLAGYL 250 MG ORAL TABLET One tablet three times a day METRONIDAZOLE 51427007150 No Longer Active Cintia Pagan APRN Active CVS 28-0.8 MG ORAL TABLET 04/10 VIT-FE FUMARATE-FA 08743368206 No Longer Active Dionne Stewart MD Active CVS 28-0.8 MG ORAL TABLET 04/10 CVS 28-0.8 MG ORAL TABLET VIT-FE FUMARATE-FA Inactive TRI-SPRINTEC 0.18/0.215/0.25 MG-35 MCG ORAL TABLET 1 po qd a s directed TRI-SPRINTEC 0.18/0.215/0.25 MG-35 MCG ORAL TABL ET 968057 NORGESTIM-ETH ESTRAD TRIPHASIC Inactive CYCLOBENZAPRINE HCL 10 MG ORAL TABLET 1 tablet by mout h three times daily as needed for muscle spasm/pain CYCLOBENZAP RINE HCL 10 MG ORAL TABLET 979363 CYCLOBENZAPRINE HCL Inactive CONCEPT DHA 53.5-38-1 MG ORAL CAPSULE one tab PO daily CONCEPT DHA 53.5-38-1 MG ORAL CAPSULE FEEJFK-YDVZE-BOZQ-FA-O BILLIE 3 Inactive FLAGYL 250 MG ORAL TABLET One tablet three times a day FLAGYL 250 MG ORAL TABLET 407425 METRONIDAZOLE Inactive Immunizations Vaccine Administration Date Value [...] 11 .0-15.0 platelet count 226 THOUSAND/UL 10*3/mm3 831-758 7205/05/11 mean platelet volume 10.3 fL 7.5-12.5 Lab [...] seen Encounters Code Encounter Date Provider Facility CPT-25683 Level 3 Est. Patient 17:31:05 FINANCIAL COORDINATOR Cintia sommer [facility] Procedures Code Procedure Name Date Entry Date Standard Desc ription CPT-48510G Sono OB comp <14 weeks (Pat Only) - X RAY USE ONLY 12:09:02 CDT CPT-77584 Spec Collection and Handling Fee 10:11:50 C DT CPT-89472 Visit 10:11:49 CDT CPT-J1050 Depo Provera 150 mg (Medroxyprogesterone) 08/30 16:06:30 FINANCIAL COORDINATOR CPT-73479 Abx/Therapy Injection 16:06:30 FINANCIAL COORDINATOR CPT-J1050 Depo Provera 150 mg (Medroxyprogesterone) 08/30 15:39:17 FINANCIAL COORDINATOR CPT-41031 Visit 15:01:38 CDT CPT-13359 Sono OB comp > 14 weeks 16:05:04 CDT 03/18 CPT-15216 Spec Collection and Handling Fee 10:45:40 C DT CPT-82822 Visit 10:45:40 CDT
[2020-01-05] MEDS ORDERED: CALCIUM CARBONATE 500 MG (TUMS) TAB.CHEW ONE ×2 (00:10→06:20)
--- OUTSIDE RECORDS SUMMARY | 2020-01-05 00:10 | XMS REPORT | Clinical Summary ---
Author Author Admin, Giuliana Flores Organization [facility] Address Unknown Phone Unavailable Allergies, Adverse Reactions, Alerts Allergy Name Reaction Description Start Date Severity Status Pr ovider No Known Allergies Megan Wise Conditions or Problems Problem Name Problem Code Onset Date Status Entry Date Provider Comment Standard Description Annotate Supervision of other normal V22.1 Resolved Cintia Pagan APRN Supervision of other normal Supervision of other normal V22.1 Inactive Doinne Stewart MD Supervision of other normal Supervision [...] use disorder NEED FOR PROPHYLACTIC VACCINATION WITH WUUNODU-MMOTD-M UBELLA (MMR) VACCINE V06.4 Resolved Cintia Pagan APRN Need for prophylactic vaccination with jyvvpis-ujbhu-bbinlxz [MMR] vaccine Contraceptive management V25.9 Resolved Taiwo [...] weeks gestation of V28.9 Inactive 2017 Pamela Daliey LRT Encounter for unspecified scre ening of [...] screening care, delayed ICD-V23.7 Inactive Kristin Pagan CHAIN PEGGER NEED FOR PROPHYLACTIC VACCINATION WITH SLYOICI-SAGES-J UBELLA (MMR) VACCINE ICD-V06.4 Inactive Cintia Pagan CHAIN PEGGER Contraceptive management ICD-V25.9 Inactive Dionne Stewart MD follow-up, routine ICD-V24.2 Inacti ve Dionne Stewart MD Vaginal discharge ICD-623.5 Inactive Dionne spencer MD Medication List Medication Instructions Start Date Stop Date Generic Name NDC Status Provider Patient Instruction FERROUS SULFATE 325 (65 FE) MG ORAL TABLET 1 tablet daily 5 FERROUS SULFATE 60929200977 Active Estela Clifton LPN Active LORATADINE 10 MG ORAL TABLET 1 tablet by mouth daily LORATADINE 36146464827 Active Dionne Stewart MD Active TYLENOL PM EXTRA STRENGTH 500-25 MG ORAL TABLET PRN 12/31 DIPHENHYDRAMINE-APAP (SLEEP) 28284097468 No Longer Active Dionne Stewatr MD Active CONCEPT DHA 53.5-38-1 MG ORAL CAPSULE one tab PO daily NPGEZR-GRLLS-ZPXY-FA-OMEGA 3 29425756846 Active Dionne Stewart MD Active FLAGYL 500 MG ORAL TABLET 1 tablet PO BID for 7 days 2 METRONIDAZOLE 42116840657 No Longer Active Dionne Stewart MD Active EQL FORMULA 28-0.8 MG ORAL TABLET 1 tablet daily 1 VIT-FE FUMARATE-FA 40854268440 No Longer Active Dionne Stewart MD A ctive CONCEPT DHA 53.5-38-1 MG ORAL CAPSULE one tab PO daily GJNCWR-ATZIK-UQTX-FA-OMEGA 3 19961897203 No Longer Active Dionne Stewart MD Active CYCLOBENZAPRINE HCL 10 MG ORAL TABLET 1 tablet by mout h three times daily as needed for muscle spasm/pain CYCLOBENZAPRINE HCL 97952586016 No Longer Active Dionne Stewart MD Active TRI-SPRINTEC 0.18/0.215/0.25 MG-35 MCG ORAL TABLET 1 po qd a s directed NORGESTIM-ETH ESTRAD TRIPHASIC 21597458707 N o Longer Active Dionne Stewart MD Active FLAGYL 250 MG ORAL TABLET One tablet three times a day METRONIDAZOLE 61672324910 No Longer Active Cintia Pagan APRN Active CVS 28-0.8 MG ORAL TABLET 04/10 VIT-FE FUMARATE-FA 45666499524 No Longer Active Dionne Stewart MD Active CVS 28-0.8 MG ORAL TABLET 04/10 CVS 28-0.8 MG ORAL TABLET VIT-FE FUMARATE-FA Inactive TRI-SPRINTEC 0.18/0.215/0.25 MG-35 MCG ORAL TABLET 1 po qd a s directed TRI-SPRINTEC 0.18/0.215/0.25 MG-35 MCG ORAL TABL ET 790281 NORGESTIM-ETH ESTRAD TRIPHASIC Inactive CYCLOBENZAPRINE HCL 10 MG ORAL TABLET 1 tablet by mout h three times daily as needed for muscle spasm/pain CYCLOBENZAP RINE HCL 10 MG ORAL TABLET 773471 CYCLOBENZAPRINE HCL Inactive CONCEPT DHA 53.5-38-1 MG ORAL CAPSULE one tab PO daily CONCEPT DHA 53.5-38-1 MG ORAL CAPSULE ZOCGNE-VDBAM-IRML-FA-O BILLIE 3 Inactive FLAGYL 500 MG ORAL TABLET 1 tablet PO BID for 7 days 2 FLAGYL 500 MG ORAL TABLET 648559 METRONIDAZOLE Inactive TYLENOL PM EXTRA STRENGTH 500-25 MG ORAL TABLET PRN 12/31 TYLENOL PM EXTRA STRENGTH 500-25 MG ORAL TABLET 4014155 DIPHEN HYDRAMINE-APAP (SLEEP) Inactive FLAGYL 250 MG ORAL TABLET One tablet three times a day FLAGYL 250 MG ORAL TABLET 668849 METRONIDAZOLE Inactive Immunizations Vaccine Administration Date Value [...] 11 .0-15.0 platelet count 226 THOUSAND/UL 10*3/mm3 257-144 1457/05/11 mean platelet volume 10.3 fL 7.5-12.5 Lab [...] SCREEN, RBCW/REFL I , Drug Abuse Pnl 1050/62386 - Blood bank antibody screen, serum NO ANTIBODIES DETECTED Lab Report: CBC, [id number] Gluc cari-1spec - Hematology leukocyte count, blood [...] N Encounters Code Encounter Date Provider Facility CPT-86414 Level 3 Est. Patient 17:31:05 MOUSTAPHA sommer APRN [facility] Procedures Code Procedure Name Date Entry Date Standard Desc ription CPT-87767 Visit 11:14:16 CDT CPT-99856 Visit 10:54:00 CDT CPT-45501 Visit 16:24:31 CDT CPT-74443 Sono OB comp > 14 weeks - XRAY USE ONLY 12:01:14 CDT CPT-91391 Visit 15:58:08 CDT CPT-20724 Visit 12:16:56 CDT CPT-68746H Sono OB comp <14 weeks (Pat Only) - X RAY USE ONLY 12:09:02 CDT CPT-12564 Spec Collection and Handling Fee 10:11:50 C DT CPT-64185 Visit 10:11:49 CDT CPT-J1050 Depo Provera 150 mg (Medroxyprogesterone) 08/30 16:06:30 CHANDELIER MAKER CPT-92530 Abx/Therapy Injection 16:06:30 CHANDELIER MAKER CPT-J1050 Depo Provera 150 mg (Medroxyprogesterone) 08/30 15:39:17 CHANDELIER MAKER CPT-48443 Visit 15:01:38 CDT CPT-80406 Sono OB comp > 14 weeks 16:05:04 CDT 03/18 CPT-82585 Spec Collection and Handling Fee 10:45:40 C DT CPT-81298 Visit 10:45:40 CDT
--- OUTSIDE RECORDS SUMMARY | 2020-01-05 00:10 | XMS REPORT | Continuity of Care Document ---
Author Organization Unknown Address Unknown Phone Unavailable Allergies Active Description Code Type Severity Reaction Onset Reported/Identified Relationship to Patient Clinical Status Yes No Known Drug Allergies 54327278 Miscellaneous Allergy Moderate N/A Yes No Known Medication Allergies Drug N/A N/A Yes hydrocodone 1554 Drug Allergy N/A N/A Confirmed or V erified Yes hydrocodone 1554 Drug Allergy Mild Rash 12/03/2014 Yes No Known Allergies [id number] Drug Allergy Unknown N/A 10/21/2016 Yes No Known Allergies No Known Allergies Drug Allergy Unknown N/A 08/09/2018 Medications There is no data. Problems Date Dx Coded Attending Type Code Diagnosis Diagnosed By 12/03/2014 CHRISTINA BACH 842.00 SPRAIN OF WRIST NOS 12/03/2014 CHRISTINA BACH 959.3 ELB/FOREARM/WRST INJ NOS 12/03/2014 CHRISTINA BACH E000.9 EXT CAUSE STATUS NOS 12/03/2014 CHRISTINA BACH E030 ACTIVITY NOS 12/03/2014 CHRISTINA BACH E816.0 LOSS CONTROL MV ACC-DRIV 12/03/2014 CHRISTINA BACH E849.[address]/HIGHWAY 12/03/2014 LOS CARPENTER 842.00 SPRAIN OF WRIST NOS 12/03/2014 LOS CARPENTER 959.3 ELB/FOREARM/WRST INJ NOS 12/03/2014 LOS CARPENTER E000.9 EXT CAUSE STATUS NOS 12/03/2014 LOS CARPENTER E 030 ACTIVITY NOS 12/03/2014 LOS CARPENTER E816.0 LOSS CONTROL MV ACC-DRIV 12/03/2014 LOS CARPENTER E849.[address]/HIGHWAY 12/31/2017 Pat EVANGELISTA, Elias Z34.90 Supervision of other normal 12/31/2017 Elias Stewart MD A60.00 Genital herpes 01/05/2018 Elias Stewart MD.09 9 weeks gestation of 02/25/2018 Elias Stewart MD.16 16 weeks gestation of 03/01/2018 Elias Stewart MD O28.1 Abnormal biochemical finding on screening 03/08/2018 Elias Stewart MD.18 18 weeks gestation of 04/29/2018 Elias Stewart MD.25 25 weeks gestation of 05/13/2018 Elias Stewart MD.27 27 weeks gestation of 05/23/2018 Elias Stewart MD J01.10 Sinusitis, acute frontal 05/27/2018 Elias Stewart MD.29 29 weeks gestation of 05/31/2018 Elias Stewart MD.30 30 weeks gestation of 05/31/2018 Elias Stewart MD O24.410 GDM, diet controlled 06/09/2018 Elias Stewart MD.31 31 weeks gestation of 06/09/2018 Elias Stewart MD O09.93 Supervision high risk , third trimester 06/23/2018 Elias Stewart MD.33 33 weeks gestation of 07/08/2018 Elias Stewart MD Z20.2 Std exposure 07/08/2018 Elias Stewart MD.35 35 weeks gestation of 07/08/2018 ELIAS STEWART MD D O09.9 3 Supervision of high risk , unsp, third trimester 07/13/2018 Elias Stewart MD.36 36 weeks gestation of 07/13/2018 ELIAS STEWART MD O09.9 3 Supervision of high risk , unsp, third trimester 07/22/2018 Elias Stewart MD.37 Gestation period greater than or equal to 37 weeks 08/01/2018 Jackie Monge MD A A O80 ENCOUNTER FOR FULL-TERM UNCOMPLICATED DE 08/01/2018 Jackie Monge MD A A O80 ENCOUNTER FOR FULL-TERM UNCOMPLICATED DE 08/01/2018 Jackie Monge MD A A O80 ENCOUNTER FOR FULL-TERM UNCOMPLICATED DE 08/01/2018 Jackie Monge MD A A O80 ENCOUNTER FOR FULL-TERM UNCOMPLICATED DE 08/08/2018 Manish Adorno DO Susie O73.1 RETAINED PORTIONS OF PLACENTA AND MEMBRA 10/31/2018 Pat EVANGELISTA, Elias N89.8 Vaginal discharge 10/31/2018 Pat EVANGELISTA, Elias E66.3 Overweight (BMI 25-29.9) 10/31/2018 Pat EVANGELISTA, Elias F17.200 Tobacco abuse 10/31/2018 Pat EVANGELISTA, Elias Z68.25 BMI 25-25.9 10/31/2018 Reason For Visit N89.8 Other specified noninflammatory disorders of vagina 10/31/2018 Final R82.998 Other abnormal findings in urine 02/10/2019 WERNER STILES Final J01.90 Acute sinusitis, unspecified 02/10/2019 WERNER STILES Reason For Visi t R21 Rash and other nonspecific skin eruption 02/10/2019 WERNER STILES Final Z86.14 Personal history of Methicillin resistan t Staphylococcus aureus infection 04/02/2019 ELISABETH RICHARDSON P K3580 Unspecified acute appendicitis 04/02/2019 ELISABETH RICHARDSON S K429 Umbilical hernia without obstruction or gangrene 04/02/2019 ELISABETH RICHARDSON S V94376 Unspecified ovarian cyst, left side 06/23/2019 FINE, TAE PA P N912 Amenorrhea, unspecified 06/23/2019 FINE, TAE PA S R070 Pain in throat 06/23/2019 FINE, TAE PA S R1032 Left lower quadrant pain 06/28/2019 FINE, TAE PA P N912 Amenorrhea, unspecified 06/28/2019 FINE, TAE PA S R070 Pain in throat 06/28/2019 FINE, TAE PA S R1032 Left lower quadrant pain 06/28/2019 FINE, TAE PA P N912 Amenorrhea, unspecified 06/28/2019 FINE, TAE PA S R070 Pain in throat 06/28/2019 FINE, TAE PA S R1032 Left lower quadrant pain 06/28/2019 FINE, TAE PA P N912 Amenorrhea, unspecified 06/28/2019 FINE, TAE PA S R070 Pain in throat 06/28/2019 FINE, TAE PA S R1032 Left lower quadrant pain 06/28/2019 FINE, TAE PA P N912 Amenorrhea, unspecified 06/28/2019 TAE MCARTHUR S R070 Pain in throat 06/28/2019 TAE MCARTHUR S R1032 Left lower quadrant pain Procedures Code Description [place] [address] X-RA Y EXAM OF WRIST LOS CARPENTER 12/03/2014 11332 [facility] G[facility] DEPT VISIT [place] 12/03/2014 86107 JEAN GENCY DEPT VISIT [place]P[facility] 12/03/2014 48741 URIN E CULTURE/COLONY COUNT ELIAS STEWART MD 12/31/2017 80776 CULT URE SCREEN ONLY ELIAS STEWART MD 07/08/2018 37165 URIN E CULTURE/COLONY COUNT ELIAS STEWART MD 07/13/2018 Results Test Result Range HGB HCT - 08/09/18 00:09 MEAN CELL VOLUME 93.7 fl 80.0-100.0 HEMOGLOBIN 12.5 gm/dL 12.0-16.0 HEMATOCRIT 35.8 % 37.0-47.0 URINALYSIS, ROUTINE - 08/09/18 00:27 UA LEUKOCYTE ESTERASE DIPSTICK NEGATIVE NEGATIVE UA NITRITE DIPSTICK NEGATIVE NEGATIVE UA PROTEIN DIPSTICK NEGATIVE NEGATIVE UA GLUCOSE DIPSTICK NEGATIVE NEGATIVE UA KETONE DIPSTICK NEGATIVE NEGATIVE UA UROBILINOGEN DIPSTICK NORMAL AMEENA L UA BILIRUBIN DIPSTICK NEGATIVE NEGATIVE UA BLOOD DIPSTICK 3+ NEGATIVE UA SPECIFIC GRAVITY >= 1.030 1.015-1.02 5 UR PH 7.0 5.0-7.0 UA MICROSCOPIC - 08/09/18 00:27 UA RBC TEST NOT PERFORMED rbc/hpf 0 - 3 UA VOLUME FOR EXAM TEST NOT PERFORMED mL (12mL STD) UA WBC TEST NOT PERFORMED wbc/hpf 0 - 5 UR TEST - 08/09/18 00:27 UR TEST NEGATIVE NEGATIVE HGB HCT - 08/09/18 07:30 MEAN CELL VOLUME 94.7 fl 80.0-100.0 HEMOGLOBIN 10.5 gm/dL 12.0-16.0 HEMATOCRIT 30.1 % 37.0-47.0 Urine Culture - 10/31/18 14:13 Pre No growth at 24 hours. Final No growth at 48 hours. UA WITH MICROSCOPY/CULTURE IF INDICATED - 04/01/19 21:20 URINE SAMPLE CATH U COLOR YELLOW NORMAL: STRAW-YELLOW U TURBIDITY Clear NORMAL: CLEAR U SP GRAVITY 1.015 NORMAL: 1.005-1.0 30 U NITRITE Negative NORMAL: NEGATIVE U pH 8.0 NORMAL: 5.0-8.0 U PROTEIN Negative NORMAL: NEGATIVE U GLUCOSE Negative NORMAL: NEGATIVE U KETONES Negative NORMAL: NEGATIVE U UROBILINOGEN 0.2 NORMAL: 0.2 mg/ dl U BILIRUBIN Negative NORMAL: NEGATIVE U BLOOD Negative NORMAL: NEG - TRACE U LEUKO ELENA Negative NORMAL: NEGATIVE U MICROSCOPIC Not Indicated U CULTURE SET NO Sample of Urine: 10 ML UAMICROSCOPYANDCULTUREIFINDICATED RPR, Rfx Qn RPR/Confirm TP - 07/03/19 10 :45 RPR Non Reactive Non Reactive HBsAg Screen - 07/03/19 10:45 HBsAg Screen Negative Negative HCV Antibody - 07/03/19 10:45 Hep C Virus Ab <0.1 s/co ratio 0.0-0.9 Varicella-Zoster V Ab, IgG - 07/03/19 10 :45 Varicella Zoster IgG 706 index Immune >1 65 Rubella Antibodies, IgG - 07/03/19 10:45 Rubella Antibodies, IgG 5.28 index Immun e >0.99 CULTURE, GENITAL - 08/28/19 19:00 CULTURE, GENITAL SEE NOTE NRG CULTURE, URINE - 09/06/19 14:50 CULTURE, URINE, ROUTINE SEE NOTE NRG C Throat - 10/04/19 11:38 Pre Normal Oral Laura at 24 hours. Final Normal Oral Laura at 48 hours. GLUCOSE MELA 3 HOUR - 10/05/19 08:17 TIME 1 0806 NRG SPECIMEN 1 86 mg/dL 65-99 TIME 2 0921 NRG SPECIMEN 2 224 mg/dL NRG TIME 3 1021 NRG SPECIMEN 3 199 mg/dL NRG TIME 4 1121 NRG SPECIMEN 4 94 mg/dL NRG COMMENT NRG CULTURE, GENITAL - 10/16/19 19:00 CULTURE, GENITAL SEE NOTE NRG CULTURE, GENITAL - 11/30/19 12:40 CULTURE, GENITAL SEE NOTE NRG CULTURE, CHLAMYDIA - 11/30/19 12:40 RESULT: NOT ISOLATED NRG Complete urinalysis with reflex to cultu re - 01/04/20 22:10 Urine color determination YELLOW NRG Urine clarity determination CLOUDY NR G Urine pH measurement by test strip 7.5 5-9 Specific gravity of urine by test strip 1.015 1.016-1.022 Urine protein assay by test strip, semi-quantitative TRACE NEGATIVE Urine glucose detection by automated test strip NE GATIVE NEGATIVE Erythrocytes detection in urine sediment by light micr oscopy 3+ NEGATIVE Urine ketones detection by automated test strip 2+ NEGATIVE Urine nitrite detection by test strip NEGATIVE NEGATIVE Urine total bilirubin detection by test strip NEGA TIVE NEGATIVE Urine urobilinogen measurement by automated test strip (mass/volume) 0.2 mg/dL < = 1.0 Urine leukocyte esterase detection by dipstick 3+ NEGATIVE Automated urine sediment erythrocyte cou nt by microscopy (number/high power field) [HPF] NRG Automated urine sediment leukocyte count by microscopy (number/high power field) [HPF] NRG Bacteria detection in urine sediment by light microsco py FEW NRG Squamous epithelial cells detection in u rine sediment by light microscopy 10-25 NRG Crystals detection in urine sediment by light microsco py NONE NRG Casts detection in urine sediment by light microscopy NONE NRG Mucus detection in urine sediment by light microscopy NEGATIVE NRG Complete urinalysis with reflex to culture YES NRG Capillary blood glucose measurement by g lucometer (mass/volume) - 01/04/20 22:55 Capillary blood glucose measurement by glucometer (mas s/volume) 135 mg/dL 70-110 Complete blood count (CBC) with automate d white blood cell (WBC) differential - 01/04/20 23:00 Blood leukocytes automated count (number/volume) 20.6 10*3/uL 4.3-11.0 Blood erythrocytes automated count (number/volume) 3.63 10*6/uL 4.35-5.85 Venous blood hemoglobin measurement (mass/volume) 11.8 g/dL 11.5-16.0 Blood hematocrit (volume fraction) 34 % 35-52 Automated erythrocyte mean corpuscular volume 94 [ foz_us] 80-99 Automated erythrocyte mean corpuscular h emoglobin (mass per erythrocyte) 33 pg 25-34 Automated erythrocyte mean corpuscular h emoglobin concentration measurement (mass/volume) 35 g/dL 32-36 Automated erythrocyte distribution width ratio 12. 6 % 10.0- 14.5 Automated blood platelet count (count/volume) 162 10*3/uL 130-400 Automated blood platelet mean volume measurement 9.9 [foz_us] 7.4-10.4 Automated blood neutrophils/100 leukocytes 85 % 42-75 Automated blood lymphocytes/100 leukocytes 8 % 12-44 Blood monocytes/100 leukocytes 6 % 0-12 Automated blood eosinophils/100 leukocytes 1 % 0-10 Automated blood basophils/100 leukocytes 0 % 0-10 Blood neutrophils automated count (number/volume) 17.6 10*3 1.8-7.8 Blood lymphocytes automated count (number/volume) 1.7 10*3 1.0-4.0 Blood monocytes automated count (number/volume) 1. 2 10*3 0.0-1.0 Automated eosinophil count 0.1 10*3/uL 0 .0-0.3 Automated blood basophil count (count/volume) 0.0 10*3/uL 0.0-0.1 Radiology Report from [facility] on 2017 06:02:00 PATIENT NAME: DAVID WALTER UNIT NO: [id number] EXAMS: CPT CODE: [id number] US PELVIS [id number] REASON FOR EXAM: post 2 wk increased bleeding. . TIME OF EXAM: 08/09/2018 2:04 AM COMPARISON: None TECHNIQUE: High-resolution grayscale and color-flow transabdominal pelvic ultrasound was performed. FINDINGS: The uterus is anteverted. It measures 6.2 cm AP, 2.6 cm transverse, and 13.9 cm in length. In the endometrial cavity there is a hypervascular heterogeneous masslike focus measuring approximately 2.9 x 0.9 cm (image 20). The endometrium echo stripe measures 8 mm in maximal AP dimension. The cervix is not well-visualized. The right ovary measures 3.6 x 2.8 x 2.5 cm and has a normal appearance and bloodflow. There is no right adnexal mass. The left ovary measures 3.4 x 1.9 x 3.0 cm and has a normal appearance and bloodflow. There is no left adnexal mass. No free fluid is visualized within the posterior cul-de-sac. IMPRESSION: 1. Hypervascular masslike focus in the endometrial cavity concerning for retained products of conception. 2. Normal appearing ovaries. No adnexal mass. Exam discussed by Dr. Stewart with Ruma Miller NP at 08/09/2018 2:16 AM. I have personally reviewed these images and corrected the resident physician's interpretation if necessary. 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 NAME: DAVID WALTER [address] HP: [phone] AGE: 27 S:[place] [address] : 1990 LOC: W.1298 A PHYS: Ruma Vee HOOP COILING MACHINE OPERATOR PHONE #: [phone] EXAM DATE: 08/09/2018 STATUS: ADM IN FAX #: [phone] A#: [id number] U#: [id number] PAGE 2 Signed Report *Final Page* Encounters ACCT No. Visit Date/Time Discharge Status Pt. Type Provider Facility Loc./Unit Complaint [id number] 06/23/2019 09:40:00 06/23/2019 09:40 :00 DIS Outpatient TAE MCARTHUR [id number] 04/01/2019 19:49:00 04/02/2019 10:15: 00 DIS Outpatient ELISABETH RICHARDSON [facility] 026 [id number] 10/21/2016 18:11:00 03/01/2 017 19:18:00 DIS Emergency ALEXANDRE EVANGELISTA, ANABEL [facility] ER [id number] 07/05/2019 09:06:00 Document Registration [id number] 07/05/2019 08:07:00 Document Registration [id number] 07/13/2018 13:53:00 07/13/2018 13:53 :00 DIS Outpatient PAT EVANGELISTA, ELIAS E LAB [id number] 07/08/2018 12:21:00 07/08/2018 12:21 :00 DIS Outpatient PAT EVANGELISTA, ELIAS E LAB [id number] 12/31/2017 10:22:00 12/31/2017 10:22 :00 DIS Outpatient ELIAS STEWART MD E LAB [id number] 12/03/2014 14:28:00 12/03/2014 16:00 :00 DIS Emergency CHRISTINA BACH [facility] ER [id number] 12/03/2014 15:05:00 12/03/2014 15:05 :00 DIS Outpatient LOS CARPENTER [facility] OTHER [id number] 10/31/2018 14:13:00 Document Registration [id number] 07/25/2019 12:12:25 07/25/2019 23:59: 59 CLS Outpatient Natty Valerio [id number] 07/25/2019 10:54:26 07/25/2019 23:59: 59 CLS Outpatient SpencerKamran landrumclarence CheryTony [id number] 07/03/2019 10:50:42 07/03/2019 23:59: 59 CLS Outpatient Belem Maravilla [id number] 07/05/2019 08:07:00 Document Registration [id number] 07/05/2019 20:06:00 Document Registration [id number] 08/08/2018 23:43:00 018 12:45:00 DIS Outpatient Manish Adorno DO [facility] W.4WH [id number] 08/01/2018 00:00:00 018 00:00:00 CAN Inpatient Jackie Monge MD [facility] W.2WE [id number] 08/01/2018 00:00:00 018 00:00:00 CAN Inpatient Saleem EVANGELISTA, Jackie Richards [facility] W.2WE [id number] 02/10/2019 08:45:03 9 23:59:59 DIS Outpatient WERNER STILES [facility] FELIBERTO [facility] Wally Armas [id number] 07/25/2018 06:55:00 8 16:20:00 DIS Inpatient PAT ELIAS [facility] FELIBERTO OB labor [id number] 07/24/2018 20:20:00 8 22:12:00 DIS Emergency [facility] FELIBERTO OB leakage of fluid [id number] 06/29/2018 10:22:00 8 10:03:00 DIS V PAT [facility] FELIBERTO OB contraction w d-cell s [id number] 05/30/2018 11:29:00 8 13:40:00 DIS Emergency PAT [facility] FELIBERTO OB leaking fluid [id number] 07/06/2019 14:07:00 Document Registration [id number] 01/04/2020 23:02:00 Document Registration [id number] 11/24/2018 14:40:03 [place] [id number] 12/26/2019 13:00:00 12/26/2019 23:59:5 9 CLS Outpatient JAVID DREW MD [facility] [id number] 11/30/2019 09:40:00 Document Registration [id number] 10/16/2019 10:20:00 Document Registration [id number] 10/05/2019 08:00:00 Document Registration [id number] 09/06/2019 13:40:00 Document Registration [id number] 08/28/2019 16:20:00 Document Registration [id number] 10/04/2019 11:38:00 Document Registration [id number] 10/31/2018 14:13:00 Document Registration
--- OUTSIDE RECORDS SUMMARY | 2020-01-05 00:10 | XMS REPORT | Continuity of Care Document ---
Author Author Jayla Pena [facility] Jaylashubham Pena [facility] Address Unknown Phone Unavailable Support Name Relationship Address Phone BERTHASTEFANIE SARAHY Anders DO Caregiver [address] [place], [place] [phone] MEHUL ZEE M.D Caregiver [address] [place] [phone] DAVID HULL III Next Of Kin [address] [id number] [employer] Insurance Providers Payer Name Policy Number Subscriber Name Relationship Self Pay Insurance Giuliana Matamoros 01 Self / S elmira As Patient Problems No problem information available. Medications Current Home Medications Medication Dose Units Route Directions Days/Qty Instructions Star t Date Multivit-Min W/Fe-Fa Daily 03/26/09 Social History No social history. Hospital Discharge Instructions No hospital discharge instructions. Plan of Care Discharge Date 03/25/15 8:08pm Disposition 01 HOME, SELF-CARE Instructions/Education Provided OBG Threatened Labor Prescriptions See Medication Section Functional Status No functional status results. Allergies, Adverse Reactions, Alerts Allergen Type Severity Reaction Status Last Updated No Known Drug Allergy Allergy Unknown RECEIVED 671442 Active 07/25/14 Immunizations No immunization records. Vital Signs Acute Vital Signs Vital Response Date/Time Blood Pressure 114/69 mm Hg 03/25/2015 6:10pm Blood Pressure Mean 84 mm Hg 03/25/2015 6:10pm Temperature (Fahrenheit) 98.2 degrees F (96.0 - 99.9) 2014 6:10pm Temperature (Calculated Celsius) 36.13590 degrees C 015 6:10pm Temperature Source Oral 03/25/2015 6:10pm Pulse Pulse Rate: ED 109 bpm 03/25/2015 6:10pm Respiratory Rate 18 breaths per minute (10 - 20) 03/25/20 15 6:10pm Results Laboratory Results Test Name Result Units Flags Reference Collection Date/Time Result Date/Time Comments Urine Color YELLOW 03/25/2015 6:58pm 03/25/2015 7:47pm Urine Appearance CLEAR 03/25/2015 6:58pm 03/25 7:47pm Urine Glucose (UA) NEGATIVE NEGATIVE 03/25/2015 6:58pm 0 03/25/2015 7:47pm Urine Bilirubin NEGATIVE NEGATIVE 03/25/2015 6:58pm 0810/2014 7:47pm Urine Ketones NEGATIVE NEGATIVE 03/25/2015 6:58pm 2014 7:47pm Urine Specific [place] 1.010 1.005-1.030 03/25 6:58pm 03/25/2015 7:47pm Urine Occult Blood NEGATIVE NEGATIVE 03/25/2015 6:58pm 0 03/25/2015 7:47pm Urine pH 7.0 4.5-8.0 03/25/2015 6:58pm 03/25/2015 7: 47pm Urine Protein NEGATIVE NEGATIVE 03/25/2015 6:58pm 2014 7:47pm Urine Urobilinogen 0.2 E.U./dL 0.2-1.0 03/25/2015 6:58pm 10/2014 7:47pm Urine Nitrate NEGATIVE NEGATIVE 03/25/2015 6:58pm 2014 7:47pm Urine Leukocyte Esterase NEGATIVE NEGATIVE 03/25 6:58pm 03/25/2015 7:47pm Membranes Rupture NEGATIVE 03/25/2015 7:25 pm 03/25/2015 7:39pm Urine Amphetamines Screen Negative NEGATIVE 10/2014 6:58pm 03/25/2015 7:47pm Urine Methamphetamines Screen Negative NEGATIVE 03/25/2015 6:58pm 03/25/2015 7:47pm Urine Barbiturates Screen Negative NEGATIVE 10/2014 6:58pm 03/25/2015 7:47pm Urine Benzodiazepines Screen Negative NEGATIVE 0 03/25/2015 6:58pm 03/25/2015 7:47pm Urine Cocaine Screen Negative NEGATIVE 03/25/2015 6:58pm 03/25/2015 7:47pm Urine Methadone Screen Negative NEGATIVE 015 6:58pm 03/25/2015 7:47pm Urine Opiates Screen Negative NEGATIVE 03/25/2015 6:58pm 03/25/2015 7:47pm Urine Phencyclidine Screen Negative NEGATIVE 10/2014 6:58pm 03/25/2015 7:47pm Urine Propoxyphene Screen Negative NEGATIVE 10/2014 6:58pm 03/25/2015 7:47pm Ur Tetrahydrocannabinol (THC) Scrn Negative NEGAT OSCAR 03/25/2015 6:58pm 03/25/2015 7:47pm Ur Tricyclic Antidepressants Screen Negative NEGA TIVE 03/25/2015 6:58pm 03/25/2015 7:47pm Procedures No known history of procedures. Encounters Encounter Location Arrival/Admit Date Discharge/Depart Date Attending Provider Discharged Inpatient (obs) Jayla Pena [facility] 03/25/15 6:38pm 03/25/15 8:08pm MEHUL ZEE M.D
--- OUTSIDE RECORDS SUMMARY | 2020-01-05 00:10 | XMS REPORT | Clinical Summary ---
[...] use disorder NEED FOR PROPHYLACTIC VACCINATION WITH ZYEDATU-UQVFV-E UBELLA (MMR) VACCINE V06.4 Resolved Cintia Pagan APRN Need for prophylactic vaccination with cchlppi-qovxt-ayhfmdb [MMR] vaccine Contraceptive management V25.9 Resolved Taiwo [...] of davee r care, delayed ICD-V23.7 Inactive rKistin Pagan COLORING MACHINE OPERATOR NEED FOR PROPHYLACTIC VACCINATION WITH JNWFNAJ-SNUHT-D UBELLA (MMR) VACCINE ICD-V06.4 Inactive Cintia Pagan COLORING MACHINE OPERATOR Contraceptive management ICD-V25.9 Inactive Dionne Stewart MD follow-up, routine ICD-V24.2 Inacti ve Dionne Stewart MD Vaginal discharge ICD-623.5 Inactive Dionne spencer MD Medication List Medication Instructions Start Date Stop Date Generic Name NDC Status Provider Patient Instruction FLAGYL 500 MG ORAL TABLET 1 tablet PO BID for 7 days METRONIDAZOLE 05940144809 Active Billie Active TYLENOL PM EXTRA STRENGTH 500-25 MG ORAL TABLET PRN 12/31 DIPHENHYDRAMINE-APAP (SLEEP) 87880448749 Active Dionne Stewart MD Active EQL FORMULA 28-0.8 MG ORAL TABLET 1 tablet daily 1 VIT-FE FUMARATE-FA 61887477763 Active Dionne Stewart MD Activ e CONCEPT DHA 53.5-38-1 MG ORAL CAPSULE one tab PO daily BAHWNO-WNTEH-PPNH-FA-OMEGA 3 52391610247 No Longer Active Dionne Stewart MD Active CYCLOBENZAPRINE HCL 10 MG ORAL TABLET 1 tablet by mout h three times daily as needed for muscle spasm/pain CYCLOBENZAPRINE HCL 09041135564 No Longer Active Dionne Stewart MD Active TRI-SPRINTEC 0.18/0.215/0.25 MG-35 MCG ORAL TABLET 1 po qd a s directed NORGESTIM-ETH ESTRAD TRIPHASIC 22762236179 N o Longer Active Dionne Stewart MD Active FLAGYL 250 MG ORAL TABLET One tablet three times a day METRONIDAZOLE 28669792733 No Longer Active Cintia Pagan APRN Active [facility] 28-0.8 MG ORAL TABLET 04/10 VIT-FE FUMARATE-FA 44655438606 No Longer Active Dionne Stewart MD Active CYCLOBENZAPRINE HCL 10 MG ORAL TABLET 1 tablet by mout h three times daily as needed for muscle spasm/pain CYCLOBENZAP RINE HCL 10 MG ORAL TABLET 106989 CYCLOBENZAPRINE HCL Inactive FLAGYL 250 MG ORAL TABLET One tablet three times a day FLAGYL 250 MG ORAL TABLET 716068 METRONIDAZOLE Inactive TRI-SPRINTEC 0.18/0.215/0.25 MG-35 MCG ORAL TABLET 1 po qd a s directed TRI-SPRINTEC 0.18/0.215/0.25 MG-35 MCG ORAL TABL ET 660047 NORGESTIM-ETH ESTRAD TRIPHASIC Inactive [facility] 28-0.8 MG ORAL TABLET 04/10 [facility] 28-0.8 MG ORAL TABLET VIT-FE FUMARATE-FA Inactive CONCEPT DHA 53.5-38-1 MG ORAL CAPSULE one tab PO daily CONCEPT DHA 53.5-38-1 MG ORAL CAPSULE EIKXYU-JYIUI-QZAP-FA-O BILLIE 3 Inactive Immunizations Vaccine Administration Date Value Standard [...] 11 .0-15.0 platelet count 226 THOUSAND/UL 10*3/mm3 688-410 3751/05/11 mean platelet volume 10.3 fL 7.5-12.5 Lab [...] UC Encounters Code Encounter Date Provider Facility CPT-01408 Level 3 Est. Patient 17:31:05 FLOWERS SALESPERSON Cintia sommer COLORING MACHINE OPERATOR [facility] Procedures Code Procedure Name Date Entry Date Standard Desc ription CPT-37980P Sono OB comp <14 weeks ([place] Only) - X RAY USE ONLY 12:09:02 CDT CPT-54539 Spec Collection and Handling Fee 10:11:50 C DT CPT-75616 Visit 10:11:49 CDT CPT-J1050 Depo Provera 150 mg (Medroxyprogesterone) 08/30 16:06:30 FLOWERS SALESPERSON CPT-31413 Abx/Therapy Injection 16:06:30 FLOWERS SALESPERSON CPT-J1050 Depo Provera 150 mg (Medroxyprogesterone) 08/30 15:39:17 FLOWERS SALESPERSON CPT-08431 Visit 15:01:38 CDT CPT-38570 Sono OB comp > 14 weeks 16:05:04 CDT 03/18 CPT-92780 Spec Collection and Handling Fee 10:45:40 C DT CPT-99651 Visit 10:45:40 CDT
--- OUTSIDE RECORDS SUMMARY | 2020-01-05 00:10 | XMS REPORT | Clinical Summary ---
Author Author Admin, Giuliana Flores Organization [facility] Address Unknown Phone Unavailable Allergies, Adverse Reactions, [...] use disorder NEED FOR PROPHYLACTIC VACCINATION WITH OOIPMXW-ENTFA-E UBELLA (MMR) VACCINE V06.4 Resolved Cintia Pagan APRN Need for prophylactic vaccination with jpjcuss-cugle-vnifqjc [MMR] vaccine Contraceptive management V25.9 Resolved Taiow Stewart MD Encounter for unspecified contraceptive management [...] screening care, delayed ICD-V23.7 Inactive Kristin Pagan PLANT PRODUCTION WORKER NEED FOR PROPHYLACTIC VACCINATION WITH NTMGUXR-FNRRR-W UBELLA (MMR) VACCINE ICD-V06.4 Inactive Cintia Pagan PLANT PRODUCTION WORKER Contraceptive management ICD-V25.9 Inactive Dionne Stewart MD follow-up, routine ICD-V24.2 Inacti ve Dionne Stewart MD Vaginal discharge ICD-623.5 Inactive Dionne spencer MD Medication List Medication Instructions Start Date Stop Date Generic Name NDC Status Provider Patient Instruction FERROUS SULFATE 325 (65 FE) MG ORAL TABLET 1 tablet daily 5 FERROUS SULFATE 17858902327 Active Estela Clifton LPN Active LORATADINE 10 MG ORAL TABLET 1 tablet by mouth daily LORATADINE 22600276152 Active Dionne Stewart MD Active TYLENOL PM EXTRA STRENGTH 500-25 MG ORAL TABLET PRN 12/31 DIPHENHYDRAMINE-APAP (SLEEP) 40300188253 No Longer Active Dionne Stewart MD Active CONCEPT DHA 53.5-38-1 MG ORAL CAPSULE one tab PO daily WWTISB-GYOZN-SJGL-FA-OMEGA 3 41511113590 Active Dionne Stewart MD Active FLAGYL 500 MG ORAL TABLET 1 tablet PO BID for 7 days 2 METRONIDAZOLE 10506338895 No Longer Active Dionne Stewart MD Active EQL FORMULA 28-0.8 MG ORAL TABLET 1 tablet daily 1 VIT-FE FUMARATE-FA 62200884476 No Longer Active Dionne Stewart MD A ctive CONCEPT DHA 53.5-38-1 MG ORAL CAPSULE one tab PO daily XSPJLB-ZXQCX-PIZF-FA-OMEGA 3 84822640866 No Longer Active Dionne Stewart MD Active CYCLOBENZAPRINE HCL 10 MG ORAL TABLET 1 tablet by mout h three times daily as needed for muscle spasm/pain CYCLOBENZAPRINE HCL 75675497886 No Longer Active Dionne Stewart MD Active TRI-SPRINTEC 0.18/0.215/0.25 MG-35 MCG ORAL TABLET 1 po qd a s directed NORGESTIM-ETH ESTRAD TRIPHASIC 14617773152 N o Longer Active Dionne Stewart MD Active FLAGYL 250 MG ORAL TABLET One tablet three times a day METRONIDAZOLE 77270481979 No Longer Active Cintia Pagan APRN Active [facility] 28-0.8 MG ORAL TABLET 04/10 VIT-FE FUMARATE-FA 03707661472 No Longer Active Dionne Stewart MD Active [facility] 28-0.8 MG ORAL TABLET 04/10 [facility] 28-0.8 MG ORAL TABLET VIT-FE FUMARATE-FA Inactive TRI-SPRINTEC 0.18/0.215/0.25 MG-35 MCG ORAL TABLET 1 po qd a s directed TRI-SPRINTEC 0.18/0.215/0.25 MG-35 MCG ORAL TABL ET 357783 NORGESTIM-ETH ESTRAD TRIPHASIC Inactive CYCLOBENZAPRINE HCL 10 MG ORAL TABLET 1 tablet by mout h three times daily as needed for muscle spasm/pain CYCLOBENZAP RINE HCL 10 MG ORAL TABLET 817301 CYCLOBENZAPRINE HCL Inactive CONCEPT DHA 53.5-38-1 MG ORAL CAPSULE one tab PO daily CONCEPT DHA 53.5-38-1 MG ORAL CAPSULE XHBQCH-THNOR-IIEL-FA-O BILLIE 3 Inactive FLAGYL 500 MG ORAL TABLET 1 tablet PO BID for 7 days 2 FLAGYL 500 MG ORAL TABLET 685291 METRONIDAZOLE Inactive TYLENOL PM EXTRA STRENGTH 500-25 MG ORAL TABLET PRN 12/31 TYLENOL PM EXTRA STRENGTH 500-25 MG ORAL TABLET 1785570 DIPHEN HYDRAMINE-APAP (SLEEP) Inactive FLAGYL 250 MG ORAL TABLET One tablet three times a day FLAGYL 250 MG ORAL TABLET 220392 METRONIDAZOLE Inactive Immunizations Vaccine Administration Date Value [...] 11 .0-15.0 platelet count 226 THOUSAND/UL 10*3/mm3 811-485 3159/05/11 mean platelet volume 10.3 fL 7.5-12.5 [...] SCREEN, RBCW/REFL I , Drug Abuse Pnl 1050/77558 - Blood bank antibody screen, serum NO ANTIBODIES DETECTED Lab Report: CBC, [id number] Gluc cari-1spec - Hematology leukocyte count, blood [...] N Encounters Code Encounter Date Provider Facility CPT-83259 Level 3 Est. Patient 17:31:05 MOUSTAPHA sommer APRN [facility] Procedures Code Procedure Name Date Entry Date Standard Desc ription CPT-74939 Visit 11:14:16 CDT CPT-17408 Visit 10:54:00 CDT CPT-12537 Visit 16:24:31 CDT CPT-52863 [facility] comp > 14 weeks - XRAY USE ONLY 12:01:14 CDT CPT-82177 Visit 15:58:08 CDT CPT-64978 Visit 12:16:56 CDT CPT-31999V [facility] OB comp <14 weeks (Pat Only) - X RAY USE ONLY 12:09:02 CDT CPT-68092 Spec Collection and Handling Fee 10:11:50 C DT CPT-35472 Visit 10:11:49 CDT CPT-J1050 Depo Provera 150 mg (Medroxyprogesterone) 08/30 16:06:30 SPEECH LANGUAGE PATHOLOGIST PRN CPT-35206 Abx/Therapy Injection 16:06:30 SPEECH LANGUAGE PATHOLOGIST PRN CPT-J1050 Depo Provera 150 mg (Medroxyprogesterone) 08/30 15:39:17 SPEECH LANGUAGE PATHOLOGIST PRN CPT-77478 Visit 15:01:38 CDT CPT-06239 Sono OB comp > 14 weeks 16:05:04 CDT 03/18 CPT-95055 Spec Collection and Handling Fee 10:45:40 C DT CPT-86265 Visit 10:45:40 CDT
[2020-01-05] MEDS: LACTATED RINGERS 1,000 ML IV SCH (00:20)
[2020-01-05] MEDS ORDERED: LACTATED RINGERS 1,000 ML IV SCH (00:23)
[2020-01-05] MEDS ORDERED: METOCLOPRAMIDE INJ 10 MG/2 ML (REGLAN) IV PRN (00:30)
[2020-01-05] MEDS ORDERED: EPIDURAL (fentaNYL 2 MCG/ML BUPIVA 0.125%)100 ML BAG EPI PRN (00:30)
[2020-01-05] MEDS ORDERED: ONDANSETRON 4 MG/2 ML (SDV) Z0FRAN IV PRN (00:30)
[2020-01-05] MEDS ORDERED: CALCIUM CARBONATE 500 MG (TUMS) TAB.CHEW PO ONE ×2 (00:30→06:45)
[2020-01-05] MEDS ORDERED: NALOXONE 0.4 MG/ML 1 ML (NARCAN) VIAL IV PRN ×2 (00:30)
[2020-01-05] MEDS ORDERED: diphenhydrAMINE 50 MG/ML INJ (BENADRYL) IV PRN (00:30)
[2020-01-05] MEDS ORDERED: LIDOCAINE/EPI 2% 1:200,00 (XYLOCAINE) 20 ML VIAL ONE (01:40)
[2020-01-05] MEDS ORDERED: OXYTOCIN PRE-MIX DRIP 500 ML IV ONE ×2 (01:41→10:06)
[2020-01-05 02:03] LABS: AMPHETAMINE SCREEN, URINE NEGATIVE (NEGATIVE); BARBITURATE SCREEN URINE NEGATIVE (NEGATIVE); BENZODIAZEPINES SCREEN URINE NEGATIVE (NEGATIVE); CANNABINOID SCREEN, URINE NEGATIVE (NEGATIVE); COCAINE SCREEN URINE NEGATIVE (NEGATIVE); METHADONE STAT NEGATIVE (NEGATIVE); METHAMPHETAMINE SCREEN URINE S NEGATIVE (NEGATIVE); OPIATE SCREEN URINE NEGATIVE (NEGATIVE); OXYCODONE STAT NEGATIVE (NEGATIVE); PROPOXYPHENE STAT NEGATIVE (NEGATIVE); TRICYCLIC ANTIDEPRESSANTS SCRE NEGATIVE (NEGATIVE)
[2020-01-05] MEDS ORDERED: LIDOCAINE PF 2% 5 ML (XYLOCAINE) VIAL ONE (03:25)
[2020-01-05] MEDS ORDERED: fentaNYL INJECTION 100 MCG/2 ML AMP ONE (03:25)
[2020-01-05] MEDS: AMPICILLIN FOR IV USE 1,000 MG in WATER (STERILE) FOR INJECTION 7.4 ML IV SCH ×2 (03:53→08:04)
[2020-01-05] MEDS ORDERED: CATHETER FLUSH 10 ML SYR IV SCH (06:00)
--- NOTE | 2020-01-05 08:44 | History & Physical-OB ---
OB - Chief Complaint & HPI Date/Time Date of Admission: Date of Admission: January 04, 2020 at 22:31 Date seen by a Provider: January 05, 2020 Time Seen by a Provider: 09:00 Chief Complaint/History OB-Reason for Admission/Chief: Labor Hx : 5 Hx Para: 4 Expected Date of Delivery: Feb 11, 2020 Gestational Age in Weeks: 34 Gestational Age in Days: 5 Other reason for admission: labor, not feeling well and had initial temp of 38.2 with maternal tachycardia. History of Labs O+, antibody neg, RI, HIV/HepB/RPR/HepC neg. Positive 3 hour glucola. GBS unknown, history of herpes. Other On treatment for BV outpatient, genital cultures and Chlamydia/GC pending. Allergies and Home Medications Allergies Coded Allergies: No Known Drug Allergies (Unverified , 09/19/12) Home Medications Diphenhydramine HCl 25 Mg Tablet, 25 MG PO HS, (Reported) Metronidazole 500 Mg Tablet, 500 MG PO BID, (Reported) Pnv95/Ferrous Fumarate/FA 1 Each Tablet, 1 EACH PO DAILY, (Reported) Patient Home Medication List Home Medication List Reviewed: Yes OB - History Hx of Present Care: Yes Ultrasounds: Normal mid trimester US Obstetrical Complications: Gestational Diabetes, Other (chlamydia treated in t hird trimester, BV treated within last few days, repeat GC/chlamydia pending) Information Induced Hypertension: No Maternal Gestational Diabetes: Yes Hemorrhage: Yes (delayed pp hem after fourth baby- 3 weeks had D&C) Obstetrical History Hx : 5 Hx Para: 4 Hx # Term Pregnancies: 4 Hx # Pregnancies: 0 Number of Living Children: 4 Hx Termination: No Hx Multiple Gestation: No Hx Ectopic : No Hx Stillbirth: No Hx Complication: Yes (GDM) Hx Induced Hypertens: No Hx Maternal Gestational Diabet: Yes Hx Hemorrhage: Yes (delayed 3 week pp hemorrhage) Delivery History Hx Dystocia: No Hx Forceps Assisted Delivery: No Hx Vacuum Extraction Assisted: No Hx Placenta Abnormality: No Hx Distress: No Hx Large For Gestational Age I: No Hx Small for Gestational Age I: No Hx Section: No Hx Vaginal Delivery Post C-Sec: No Hx Blood Disorders: No Adverse Rxn to Tranfusion: No Patient Past Medical History PMHx: Substance abuse GDM SurgHx: D&C for late hemorrhage Social History/Family History HIV/AIDS: No Recent Infectious Disease Expo: No Sexually Transmitted Disease: Yes (hsv, vaginosis) Alcohol Use: Denies Use Recreational Drug Use: No (history of, last use ) Smoking Cessation: Current every day smoker Immunizations Tetanus Booster (TDap): Less than 5yrs Rubella: immune RPR/VDRL: Negative GBS Status: Unknown OB - Admission Exam Physical Exam Vitals: Vital Signs 01/05/20 01/05/20 07:53 08:12 Temp 35.8 Pulse 93 Resp 20 B/P (MAP) 103/57 (72) Pulse Ox 100 O2 Delivery Room Air Cervical Dilatation: 4cm (on admission per nursing exam) Contractions on Admission: < 5 Minutes Apart Labs Laboratory Tests Test 01/04/20 22:10 01/04/20 22:55 01/04/20 23:00 01/04/20 23:40 Range/Units Urine Color YELLOW Urine Clarity CLOUDY Urine pH 7.5 5-9 Urine Specific [place] 1.015 L 1.016-1.022 Urine Protein TRACE H NEGATIVE Urine Glucose (UA) NEGATIVE NEGATIVE Urine Ketones 2+ H NEGATIVE Urine Nitrite NEGATIVE NEGATIVE Urine Bilirubin NEGATIVE NEGATIVE Urine Urobilinogen 0.2 < = 1.0 MG/DL Urine Leukocyte Esterase 3+ H NEGATIVE Urine RBC (Auto) 3+ H NEGATIVE Urine RBC 50-100 H /HPF Urine WBC 50-100 H /HPF Urine Squamous Epithelial Cells 10-25 H /HPF Urine Crystals NONE /LPF Urine Bacteria FEW H /HPF Urine Casts NONE /LPF Urine Mucus NEGATIVE /LPF Urine Culture Indicated YES Urine Opiates Screen NEGATIVE NEGATIVE Urine Oxycodone Screen NEGATIVE NEGATIVE Urine Methadone Screen NEGATIVE NEGATIVE Urine Propoxyphene Screen NEGATIVE NEGATIVE Urine Barbiturates Screen NEGATIVE NEGATIVE Ur Tricyclic Antidepressants Screen NEGATIVE NEGATIVE Urine Phencyclidine Screen NEGATIVE NEGATIVE Urine Amphetamines Screen NEGATIVE NEGATIVE Urine Methamphetamines Screen NEGATIVE NEGATIVE Urine Benzodiazepines Screen NEGATIVE NEGATIVE Urine Cocaine Screen NEGATIVE NEGATIVE Urine Cannabinoids Screen NEGATIVE NEGATIVE Glucometer 135 H 70-110 MG/DL White Blood Count 20.6 H 4.3-11.0 10^3/uL Red Blood Count 3.63 L 4.35-5.85 10^6/uL Hemoglobin 11.8 11.5-16.0 G/DL Hematocrit 34 L 35-52 % Mean Corpuscular Volume 94 80-99 FL Mean Corpuscular Hemoglobin 33 25-34 PG Mean Corpuscular Hemoglobin Concent 35 32-36 G/DL Red Cell Distribution Width 12.6 10.0-14.5 % Platelet Count 162 130-400 10^3/uL Mean Platelet Volume 9.9 7.4-10.4 FL Neutrophils (%) (Auto) 85 H 42-75 % Lymphocytes (%) (Auto) 8 L 12-44 % Monocytes (%) (Auto) 6 0-12 % Eosinophils (%) (Auto) 1 0-10 % Basophils (%) (Auto) 0 0-10 % Neutrophils # (Auto) 17.6 H 1.8-7.8 X 10^3 Lymphocytes # (Auto) 1.7 1.0-4.0 X 10^3 Monocytes # (Auto) 1.2 H 0.0-1.0 X 10^3 Eosinophils # (Auto) 0.1 0.0-0.3 10^3/uL Basophils # (Auto) 0.0 0.0-0.1 10^3/uL OB - Assessment/Plan/Diagnosis Assessment Admission Dx labor at 34 weeks gestation Fever Bacterial vaginosis GBS unknown GDMA1 History of substance abuse Admission Status: Inpatient Order (span 2 midnights) Reason for Inpatient Admission: Labor, delivery and course Plan Other Plan labor- terbutaline and betamethasone ordered in triage, however labor is progression, expectant management Fever- one elevated temp, monitor closely and if repeat elevated will treat for suspected chorioamnionitis. Checked for COVID-19. GBS unknown- ampicillin History of substance use- UDS, social service consult GDMA1- check finger stick glucose, use LR for fluid JAVID DREW MD January 05, 2020 08:44
[2020-01-05] MEDS ORDERED: METR-145 PO (08:46)
[2020-01-05] MEDS ORDERED: DIPH25TA29 PO (08:46)
--- NOTE | 2020-01-05 09:13 | NUR ---
delivery note: 912 SVE viable baby girl via Dr Oliveira. Dr Oliveira wiped 's face and clear mucus with bulb syringe. 913 Cord clamped and cut. Babe handed off to Genet De RN and taken to radiant warmer. Genet De RN assuming care for babe. Dr Momin at warmer. 914 cord blood collected 920 Babe to nursery. Pt comfortable in lithotomy. [address] Oliveira. [address]'s order. Epidural infusion stopped. [address] Oliveira, large gush of blood 800mcg of cytotec ordered and given rectally via Dr Oliveira Fundus firm, mod amount of rubra. EBL 350ml. Placenta sent to lab to be processed. Needle and sponge count correct at 1 abg needle and 10 sponges via this nurse and Dr Oliveira. See nursing interventions. 939 Pt to semi fowlers and comfortable.
[2020-01-05] MEDS ORDERED: MISOPROSTOL 200 MCG (CYTOTEC) TABLET ONE (09:26)
[2020-01-05] MEDS ORDERED: IBUPROFEN 800 MG (MOTRIN) TAB PO ONE (09:38)
--- NOTE | 2020-01-05 09:44 | NUR ---
0944 Clean v-pad placed. FF and 1 below umbilicus. small amount of rubra Pt comfortable. no clots expressed. IV infusing without difficulty. 1000 FF and 1 below umbilicus. small amount of rubra Pt comfortable. no clots expressed. 1015 FF and 1 below umbilicus. small amount of rubra Pt comfortable. no clots expressed. 1030 FF and 1 below umbilicus. small amount of rubra Pt comfortable. no clots expressed. 1044 FF and 1 below umbilicus. small amount of rubra Pt comfortable. no clots expressed. 1100 FF and 1 below umbilicus. small amount of rubra Pt comfortable. no clots expressed. Pt resting. 1115 FF and 1 below umbilicus. small amount of rubra Pt comfortable. no clots expressed. 1130 FF and 1 below umbilicus. small amount of rubra Pt comfortable. no clots expressed. 1144 FF and 1 below umbilicus. small amount of rubra Pt comfortable. no clots expressed. 1150 Pt up to BR voided without difficulty. stable on feet. back to bed. 120 Transport team here with baby. mom to wheel chair to view baby. Pt has mask on and transferred to PP room 303. No concerns voiced at this time.
--- NOTE | 2020-01-05 09:54 | OB Labor & Delivery Record ---
Vag Delivery Note Vag Delivery Note Date of Delivery: 01/05/20 Preoperative Diagnosis: Giuliana Matamoros is a 29 /Para 5 / 4, Gestational Age (wks)34with 5 days Postoperative Diagnosis: Same Surgeon: AJVID DREW Anesthesia: Epidural Delivery Type: Spontaneous vaginal delivery Findings: Viable female infant, apgars 8/pending, weight 2700grams Intact placenta with 3 vessel cord. No nuchal cord, body cord or shoulder dystocia Cytotec 800 mcg placed for hemorrhage prophylaxis Estimated Blood Loss: 350 ml Complications: None Condition: Stable Description of Procedure: The patient is a 29 year old female who presented in labor. She was admitted and informed consent was obtained. Her labor course was remarkable for one elevated temp 38.2, was tested for COVID-19, but also outpatient results became available this morning just before delivery with genital culture positive for H flu, GBS and chlamydia positive. She progressed to complete dilatation and began to push. She was then set up for delivery. The infant's head was delivered atraumatically in the OA position. The shoulders and remainder of the 's body were then delivered without difficulty. Upon delivery, the head was held below the level of the perineum and the mouth and nares were bulb suctioned. The cord was doubly clamped and cut and the infant was handed off to the pediatric staff. An intact placenta with 3-vessel cord delivered via Milagros and there was found to be mi nimal bleeding.~ Vigorous fundal massage was performed and the fundus was found to be firm. IV oxytocin was given. Examination of the vagina and perineum revealed no laceration. Following the delivery, sponge, instrument and needle counts were correct. Mom and baby were both in stable condition in the labor suite. Vitals - Labs Vital Signs - I&O Vital Signs Date Time Temp Pulse Resp B/P (MAP) Pulse Ox O2 Delivery O2 Flow Rate FiO2 01/05/20 08:12 93 20 103/57 (72) 100 Room Air 01/05/20 07:53 35.8 85 20 111/61 (78) 97 Room Air 01/05/20 07:40 35.8 91 20 111/63 (79) 97 Room Air 01/05/20 07:00 95 20 109/66 (80) 98 Room Air 01/05/20 06:45 99 20 109/66 (80) 98 Room Air 01/05/20 06:30 104 20 109/60 (76) 97 Room Air 01/05/20 06:15 100 20 117/62 (80) 97 Room Air 01/05/20 06:00 36.2 100 20 119/69 (86) 97 Room Air 01/05/20 05:45 110 20 106/55 (72) 97 Room Air 01/05/20 05:30 110 20 97/54 (68) 97 Room Air 01/05/20 05:15 101 20 109/59 (76) 97 Room Air 01/05/20 05:00 36.5 104 20 104/58 (73) 97 Room Air 01/05/20 04:45 105 20 103/59 (74) 97 Room Air 01/05/20 04:30 112 20 102/56 (71) 96 Room Air 01/05/20 04:15 103 20 116/57 (76) 98 Room Air 01/05/20 04:00 103 20 116/57 (76) 98 Room Air 01/05/20 03:47 36.6 01/05/20 03:45 115 20 114/55 (74) 100 Room Air 01/05/20 03:30 136 20 117/62 (80) 100 Room Air 01/05/20 03:26 132 20 117/62 (80) 100 Room Air 01/05/20 03:21 118 20 119/62 (81) 100 Room Air 01/05/20 03:15 113 20 130/66 (87) 100 Room Air 01/05/20 03:10 115 20 130/66 (87) 100 Room Air 01/05/20 03:00 107 20 119/63 (81) 97 Room Air 01/05/20 02:45 110 20 98/50 (66) 97 Room Air 01/05/20 02:30 36.2 115 20 101/56 (71) 97 Room Air 01/05/20 02:15 121 20 118/59 (78) 97 Room Air 01/05/20 02:00 110 20 121/68 (85) 98 Room Air 01/05/20 01:45 123 20 103/51 (68) 98 Room Air 01/05/20 01:30 109 20 114/59 (77) 98 Room Air 01/05/20 01:15 119 20 108/51 (70) 98 Room Air 01/05/20 01:00 124 20 107/59 (75) 97 Room Air 01/05/20 00:45 120 20 112/53 (72) 97 Room Air 01/05/20 00:30 120 20 108/52 (70) 99 Room Air 01/05/20 00:25 37.4 01/05/20 00:15 123 20 113/56 (75) 100 Room Air 01/05/20 00:00 130 20 120/57 (78) 100 Room Air 01/04/20 23:58 126 20 120/57 (78) 100 Room Air 01/04/20 23:55 123 20 117/55 (75) 100 Room Air 01/04/20 23:45 139 20 114/52 (72) 99 Room Air 01/04/20 22:45 36.8 130 20 122/62 (82) 99 Room Air 01/04/20 22:30 36.9 128 18 99 Room Air 01/04/20 22:30 38.2 125 20 109/54 (72) 99 Room Air 01/04/20 22:15 36.9 126 20 109/54 (72) 99 Room Air I & O 01/05/20 07:00 Intake Total 1022.2 ml Balance 1022.2 ml Labs Laboratory Tests 01/04/20 22:10: Urine Color YELLOW, Urine Clarity CLOUDY, Urine pH 7.5, Urine Specific [place] 1.015L, Urine Protein TRACEH, Urine Glucose (UA) NEGATIVE, Urine Ketones 2+H, Urine Nitrite NEGATIVE, Urine Bilirubin NEGATIVE, Urine Urobilinogen 0.2, Urine Leukocyte Esterase 3+H, Urine RBC (Auto) 3+H, Urine RBC 50-100H, Urine WBC 50- 100H, Urine Squamous Epithelial Cells 10-25H, Urine Crystals NONE, Urine Bacteria FEWH, Urine Casts NONE, Urine Mucus NEGATIVE, Urine Culture Indicated YES, Urine Opiates Screen NEGATIVE, Urine Oxycodone Screen NEGATIVE, Urine Methadone Screen NEGATIVE, Urine Propoxyphene Screen NEGATIVE, Urine Barbiturates Screen NEGATIVE, Ur Tricyclic Antidepressants Screen NEGATIVE, Urine Phencyclidine Screen NEGATIVE, Urine Amphetamines Screen NEGATIVE, Urine Methamphetamines Screen NEGATIVE, Urine Benzodiazepines Screen NEGATIVE, Urine Cocaine Screen NEGATIVE, Urine Cannabinoids Screen NEGATIVE 01/04/20 22:55: Glucometer 135H 01/04/20 23:00: White Blood Count 20.6H, Red Blood Count 3.63L, Hemoglobin 11.8, Hematocrit 34L, Mean Corpuscular Volume 94, Mean Corpuscular Hemoglobin 33, Mean Corpuscular Hemoglobin Concent 35, Red Cell Distribution Width 12.6, Platelet Count 162, Mean Platelet Volume 9.9, Neutrophils (%) (Auto) 85H, Lymphocytes (%) (Auto) 8L, Monocytes (%) (Auto) 6, Eosinophils (%) (Auto) 1, Basophils (%) (Auto) 0, Neutrophils # (Auto) 17.6H, Lymphocytes # (Auto) 1.7, Monocytes # (Auto) 1.2H, Eosinophils # (Auto) 0.1, Basophils # (Auto) 0.0 01/04/20 23:40: JAVID DREW MD January 05, 2020 09:53
[2020-01-05] MEDS ORDERED: PREN1TAB73 PO (09:56)
--- NOTE | 2020-01-05 10:15 | NUR ---
Epidural cath dcd. Tip intact. site clean and dry band aide apply. No c/o of pt.
[2020-01-05] MEDS ORDERED: cefTRIAXone 1,000 MG IV (ROCEPHIN) VIAL ONE (10:27)
[2020-01-05] MEDS ORDERED: WATER (STERILE) FOR INJECTION 20 ML ONE (10:31)
[2020-01-05] MEDS ORDERED: AZITHROMYCIN 250 MG TAB (ZITHROMAX) PO ONE (10:37)
[2020-01-05] MEDS ORDERED: AZITHROMYCIN 250 MG TAB (ZITHROMAX) PO NR (10:45)
[2020-01-05] MEDS ORDERED: BENZOCAINE/MENTHOL (DERMOPLAST) 60 ML CAN TP PRN (10:45)
[2020-01-05] MEDS ORDERED: WITCH HAZEL(TUCKS) 40 EA JAR TOP PRN (10:45)
[2020-01-05] MEDS ORDERED: OXYTOCIN PRE-MIX DRIP 500 ML IV SCH (10:45)
[2020-01-05] MEDS ORDERED: WATER (STERILE) FOR INJECTION 10 ML ONE (10:53)
[2020-01-05] MEDS: cefTRIAXone FOR IV USE 1,000 MG in WATER (STERILE) FOR INJECTION 10 ML IV SCH (11:02)
--- NOTE | 2020-01-05 13:15 | NUR ---
Notified Dr Oliveira pt requesting NicoDerm patch. Orders received.
--- NOTE | 2020-01-05 13:39 | NUR ---
Andre transferred to [facility]. Addendum: 01/05/20 at 1342 by NATALIE SHIRLEY RN Amended: Links added.
[2020-01-05] MEDS ORDERED: IBUPROFEN 800 MG (MOTRIN) TAB PO SCH (14:00)
--- NOTE | 2020-01-05 14:13 | NUR ---
Notified Dr Oliveira pt requesting something stronger than Ibuprofen for pain. Pt rating back pain "7". Order received.
[2020-01-05] MEDS: HYDROcodone/APAP 5 MG/325 MG (LORTAB) TAB PO PRN ×2 (14:30→20:51)
[2020-01-05] MEDS: NICOTINE 14 MG (NICODERM) PATCH TD SCH (14:32)
[2020-01-05] MEDS: CATHETER FLUSH 10 ML SYR IV SCH ×2 (14:33→20:51)
[2020-01-05] MEDS: IBUPROFEN 800 MG (MOTRIN) TAB PO SCH (17:57)
[2020-01-05] MEDS: DOCUSATE SODIUM 100 MG (COLACE) CAP PO SCH (20:50)
[2020-01-06 00:15] VITALS: BP 94/49
[2020-01-06] MEDS: IBUPROFEN 800 MG (MOTRIN) TAB PO SCH ×2 (02:06→09:52)
[2020-01-06 04:16] VITALS: BP 85/41
[2020-01-06 06:19] LABS: BASOPHILS % (AUTO) 0 % (0-10); EOSINOPHILS % (AUTO) 0 % (0-10); HEMATOCRIT 26 % (35-52); LYMPHOCYTES # (AUTO) 2.1 X 10^3 (1.0-4.0); LYMPHOCYTES % (AUTO) 9 % (12-44); MEAN CORPUSCULAR HEMOGLOBIN 32 PG (25-34); MEAN CORPUSCULAR HGB CONC 34 G/DL (32-36); MEAN CORPUSCULAR VOLUME 95 FL (80-99); MEAN PLATELET VOLUME 10.2 FL (7.4-10.4); MONOCYTES # (AUTO) 1.3 X 10^3 (0.0-1.0); MONOCYTES % (AUTO) 6 % (0-12); NEUTROPHILS # (AUTO) 18.8 X 10^3 (1.8-7.8); NEUTROPHILS % (AUTO) 85 % (42-75); PLATELET COUNT 192 10^3/uL (130-400); RED CELL DISTRIBUTION WIDTH 12.8 % (10.0-14.5); WHITE BLOOD COUNT 22.2 10^3/uL (4.3-11.0)
[2020-01-06] MEDS ORDERED: PRENATAL VITAMIN 1 EA TAB PO SCH (07:00)
[2020-01-06] MEDS ORDERED: NICOTINE PATCH REMOVAL TP SCH (08:59)
[2020-01-06 09:00] VITALS: BP 96/56
[2020-01-06] MEDS ORDERED: FERROUS SULF 325 MG (IRON) TAB PO SCH (09:00)
--- NOTE | 2020-01-06 09:00 | NUR ---
A.M. ASSESSMENT COMPLETED. VSS.
[2020-01-06] MEDS: cefTRIAXone FOR IV USE 1,000 MG in WATER (STERILE) FOR INJECTION 10 ML IV SCH (09:26)
[2020-01-06] MEDS: DOCUSATE SODIUM 100 MG (COLACE) CAP PO SCH (09:26)
[2020-01-06] MEDS: NICOTINE 14 MG (NICODERM) PATCH TD SCH (09:26)
[2020-01-06] MEDS: HYDROcodone/APAP 5 MG/325 MG (LORTAB) TAB PO PRN (09:52)
--- NOTE | 2020-01-06 10:00 | NUR ---
DR. QUINTERO I TO SEE PT. PLAN FOR DISCHARGE.
--- NOTE | 2020-01-06 10:31 | Discharge Summary ---
Diagnosis/Chief Complaint Date of Admission January 04, 2020 at 22:31 Date of Discharge 01/06/20 Admission Diagnosis Admission Diagnosis Labor 34 week gestation Fever GBS Unknown GDM1 Discharge Diagnosis Delivery 34 week gestation Suspected Chorioamnionitis Post Anemia Discharge Summary-Simple/Stand Procedures Epidural Placement Discharge Physical Examination Allergies: Coded Allergies: No Known Drug Allergies (Unverified , 09/19/12) Vitals & I&Os Vital Sign - Last 12Hours Date Time Temp Pulse Resp B/P (MAP) Pulse Ox O2 Delivery O2 Flow Rate FiO2 01/06/20 04:16 36.5 80 16 85/41 (56) 97 Room Air Intake and Output 01/06/20 00:00 Intake Total 1200 ml Balance 1200 ml General Appearance: Alert, Oriented X3, Cooperative, No Acute Distress HEENT: Mucous Memb Moist/[place] Respiratory: Clear to Auscultation, Normal Air Movement Cardiovascular: Regular Rate, No Murmurs Abdominal: Normal Bowel Sounds, Soft, No Tenderness, Other (fundus firm and at umbilicus) Extremities: No Edema, No Tenderness/Swelling Neuro: Strength at 5/5 X4 Ext Psych/Mental Status: Mental Status NL, Mood NL Hospital Course Was the Problem List Reviewed?: Yes See final discharge diagnosis. Discussion & Recommendations 29 yo G5 now P5 presented in active labor at 34.5 wga. Mother had fever and tachycardia at presentation. Unknown GBS started on Ampicillin. Due to fever was PUI for Covid which returned Neg. Started on Iron due to anemia. Mother would like to d/c because was transferred to [facility] after delivery. Discharge Condition at discharge Stable Instructions to patient/family Please see electronic discharge instructions given to patient. Discharge Medications Reviewed and agree with Discharge Medication list on patient's Discharge Instruction sheet Clinical Quality Measures DVT/VTE Risk/Contraindication: Risk Factor Score Per Nursin RFS Level Per Nursing on Admit: 1=Low/No VTE PPX JEFFREY QUINTERO MD January 06, 2020 10:31
[2020-01-06] MEDS ORDERED: IBUP-1780 PO (10:38)
[2020-01-06] MEDS ORDERED: FERR325T18 PO (10:38)
--- NOTE | 2020-01-06 10:39 | Discharge Summary ---
Discharge Inst-[facility] Reconcile Patient Problems Problems Reviewed?: Yes Depart Medications New, Converted or Re-Newed RX: Transmitted to Pharmacy New Medications: Ferrous Sulfate (Ferrous Sulfate) 325 Mg Tablet 325 MG PO DAILY, #30 TAB Ibuprofen (Ibuprofen) 800 Mg Tablet 800 MG PO Q8H, #60 TAB Continued Medications: Diphenhydramine HCl (Diphenhydramine HCl) 25 Mg Tablet 25 MG PO HS, TAB Metronidazole (Metronidazole) 500 Mg Tablet 500 MG PO BID, TAB Pnv95/Ferrous Fumarate/FA ( Tablet) 1 Each Tablet 1 EACH PO DAILY, TAB Follow Up/Instructions Goal/Follow Up: [address] Oliveira for post care Activity Activity: Activity as Tolerated Driving Instructions: You May Drive NO SMOKING: NO SMOKING Nothing Inside Vagina: No Douching, No Babbie Diet Discharge Diet: No Restrictions Symptoms to Report to : Bleeding Excessive, Fever Over 101 Degrees F, Shortness of Breath For Any Problems or Questions: Contact Your Physician Copies To 1: JAVID OLIVEIRA MD, HOLLY R MD January 06, 2020 10:39
--- NOTE | 2020-01-06 10:46 | Anesthesia-Regional Post-Op ---
Regional Patient Condition Mental Status: Alert, Oriented x3 Circulation: Same as Pre-Op Headache: Absent Sensation: Full Recovery Motor Block: Absent Post Op Complications Complications None Follow Up Care/Instructions Patient Instructions None needed. Anesthesia/Patient Condition Patient is doing well, no complaints, stable vital signs, no apparent adverse anesthesia problems. No complications reported per nursing. BHANU FINCH CRNA January 06, 2020 10:46
--- NOTE | 2020-01-06 12:20 | NUR ---
DISCHARGE INSTRUCTIONS REVIEWED WITH COPY TO PT. STATES UNDERSTANDING OF ALL INSTRUCTIONS AND NEED TO F/U SCHEDULED AND NEEDED.
[2020-01-06 12:30] VITALS: BP 96/56
--- NOTE | 2020-01-06 12:30 | NUR ---
DISMISSED AMB FROM [facility] TO AWAITING FAMILY CAR IN STABLE CONDITION ACC BY HALLEY MEDINA RN.
== END 2020-01-06 12:30 | disposition home or self-care (01) | DRG 805 ==
LOC: WSo 22:00 → LDRP 22:00 → WSo 22:31 → LDRP 23:30
PROVIDERS: ADMIT Family Medicine; ATTEND Family Medicine
PROC: 10E0XZZ Delivery of Products of Conception, External Approach (ICD-10-PCS; principal; 2020-01-05)
DX: O60.14X0 Preterm labor third trimester with preterm delivery third trimester, not applicable or unspecified (principal); O24.420 Gestational diabetes mellitus in childbirth, diet controlled; O23.593 Infection of other part of genital tract in pregnancy, third trimester; O98.32 Other infections with a predominantly sexual mode of transmission complicating childbirth; A74.9 Chlamydial infection, unspecified; O41.1230 Chorioamnionitis, third trimester, not applicable or unspecified; O90.81 Anemia of the puerperium; Z37.0 Single live birth; Z3A.34 34 weeks gestation of pregnancy; A60.09 Herpesviral infection of other urogenital tract; B96.3 Hemophilus influenzae [H. influenzae] as the cause of diseases classified elsewhere; Z20.828 Contact with and (suspected) exposure to other viral communicable diseases
CPT/HCPCS: 36415; 80306; 81000; 82947; 82962; 85025; 86850; 86900; 86901; 87088; 87635; 99212